=== PATIENT | female | born 1960 | race Caucasian/White ===

== ENCOUNTER → 2020-06-27 09:50 | Outpatient (BNVA) | payer MEDICARE, MEDICAID, SELFPAY | PROVIDERS: PCP Internal Medicine Endocrinology, Diabetes & Metabolism; Visit Provider Urology | DX: Z76.89 Persons encountering health services in other specified circumstances (principal) | CPT/HCPCS: 51798; 81002; 99212 ==

== ENCOUNTER 2020-06-27 11:25 | Outpatient (REF) | payer MEDICARE, MEDICAID, SELFPAY | END 2020-06-27 11:26 | disposition home or self-care (01) | LOC: HO.LAB 11:25 | PROVIDERS: PCP Emergency Medicine; Visit Provider Internal Medicine | DX: Z20.828 Contact with and (suspected) exposure to other viral communicable diseases (principal) | CPT/HCPCS: 51798; 81002; 99212; C9803; U0003 ==

== ENCOUNTER 2020-08-24 09:02 | Outpatient (REF) | payer MEDICARE, MEDICAID, SELFPAY ==
--- NOTE | ~2020-08-24 | US_ITS ---
EXAMINATION: US ABDOMEN COMPLETE CLINICAL INFORMATION: Cirrhosis. COMPARISON: Ultrasound abdomen 01/19/2020 and 03/23/2019. TECHNIQUE: Real-time imaging of the abdominal viscera. FINDINGS: PANCREAS: Normal. ABDOMINAL AORTA: The proximal, mid, and distal segments are normal in caliber. INFERIOR VENA CAVA: Visualized portions are normal. LIVER: Liver echotexture is normal. There is question of slightly nodular or lobulated contour of the liver for example image 55 questionable for mild cirrhotic change. The liver is normal in size. No focal hepatic lesion. There is no intrahepatic biliary duct dilatation seen. GALLBLADDER: The gallbladder is physiologically distended without evidence of stones, sludge, polyps, or wall thickening. COMMON BILE DUCT: Normal in caliber measuring 0.22 cm in diameter. RIGHT KIDNEY: Normal. No hydronephrosis. No renal calculi or focal parenchymal lesions. The kidney measures 10.5 cm in maximum dimension. LEFT KIDNEY: Normal. No hydronephrosis. No renal calculi or focal parenchymal lesions. The kidney measures 11.5 cm in maximum dimension. SPLEEN: The spleen is enlarged. The spleen measures 15.4 cm in maximum dimension. FREE FLUID: None. US/US abdomen complete IMPRESSION: Question mild cirrhotic changes of the liver. No focal liver lesion seen. Splenomegaly.
[2020-08-24 10:44] LABS: Hematocrit 43.3 % (37-47); Hemoglobin 14.8 g/dl (12.0-16.0); INTERNATIONAL NORM RATIO 1.1 (0.9-1.1); Mean Corpuscular HGB Conc 34.2 g/dl (31.0-35.0); Mean Corpuscular Hemoglobin 35.7 pg (27.0-33.0); Mean Corpuscular Volume 104.6 fL (80-98); Mean Platelet Volume 10.2 fL (9.4-12.3); Prothrombin Time 12.9 SEC (10.8-13.0); Red Blood Count 4.14 X10*6/uL (4.20-5.50); Red Cell Distribution Width 12.1 % (11.0-16.0); White Blood Count 3.8 X10*3/uL (4.8-10.8)
[2020-08-24 10:49] LABS: Platelet Count 78 X10*3/uL (160-400)
[2020-08-24 11:19] LABS: Alanine Aminotransferase 23 U/L (0-31); Albumin Level 4.5 g/dL (3.5-5.0); Alkaline Phosphatase 40 U/L (39-117); Anion Gap 11 (12-20); Aspartate Amino Transferase 24 U/L (5-31); Bilirubin Total 0.8 mg/dL (0.0-1.0); Blood Urea Nitrogen 21 mg/dL (9-16); Calcium 8.7 mg/dL (8.4-10.2); Carbon Dioxide 26 mmol/L (22-29); Chloride 108 mmol/L (96-108); Estimated Glomerular Filt Rate 44; Glucose Random 146 mg/dL (60-115); Potassium 3.9 mmol/L (3.3-5.1); Sodium 141 mmol/L (135-145); Total Protein 7.1 g/dL (6.5-8.0)
== END 2020-08-24 09:03 | disposition home or self-care (01) ==
LOC: HO.US 09:02
PROVIDERS: PCP Emergency Medicine; Visit Provider Internal Medicine Gastroenterology
DX: K74.60 Unspecified cirrhosis of liver (principal)
CPT/HCPCS: 36415; 76700; 80053; 85027; 85610

== ENCOUNTER → 2020-09-01 09:42 | Outpatient (BNVA) | payer MEDICARE, MEDICAID, SELFPAY | PROVIDERS: PCP Internal Medicine Endocrinology, Diabetes & Metabolism; Referring Provider Internal Medicine Endocrinology, Diabetes & Metabolism; Visit Provider Internal Medicine Gastroenterology | DX: Z13.89 Encounter for screening for other disorder (principal) | CPT/HCPCS: Q3014 ==

== ENCOUNTER 2020-09-07 10:34 | Outpatient (REF) | payer MEDICARE, MEDICAID, SELFPAY ==
--- NOTE | ~2020-09-07 | MM_ITS ---
EXAMINATION: MM SCREENING DIGITAL BREAST TOMOSYNTHESIS, BILATERAL CLINICAL INFORMATION: Screening. Asymptomatic. The lifetime risk of breast cancer based on the Tyrer-Cuzick Model is 8.3%. COMPARISON: Mammography: September 01, 2019 and studies dating back to February 21, 2012 TECHNIQUE: Digital breast tomosynthesis is performed in both the craniocaudal and mediolateral oblique views along with computer-aided detection (CAD). Synthesized 2D images are generated from the tomosynthesis. FINDINGS: There are scattered areas of fibroglandular density (ACR BI-RADS breast composition Category b). There are no significant masses, abnormal calcifications, or other abnormalities. MM/MM tomosynthesis screening BI IMPRESSION: There are no significant changes from prior study. ASSESSMENT: BI-RADS 1: Negative RECOMMENDATION: Routine annual mammography screening. This patient's information was entered into a reminder system with a target due date for their next mammogram.
== END 2020-09-07 10:35 | disposition home or self-care (01) ==
LOC: HO.MAMMO 10:34
PROVIDERS: PCP General Practice; Visit Provider General Practice
DX: Z12.31 Encounter for screening mammogram for malignant neoplasm of breast (principal)
CPT/HCPCS: 77063; 77067

== ENCOUNTER 2020-12-12 15:02 | Outpatient (REF) | payer MEDICARE, MEDICAID, SELFPAY ==
[2020-12-16 09:27] LABS: HPV mRNA E6/E7 rflx Not Detected (Not Detected)
== END 2020-12-12 15:03 | disposition home or self-care (01) ==
LOC: HO.LAB 15:02
PROVIDERS: PCP General Practice; Visit Provider Obstetrics & Gynecology
DX: N95.0 Postmenopausal bleeding (principal); R31.29 Other microscopic hematuria; K62.5 Hemorrhage of anus and rectum; Z11.51 Encounter for screening for human papillomavirus (HPV)
CPT/HCPCS: 87086; 87624; 88142; 99202

== ENCOUNTER → 2020-12-15 10:13 | Outpatient (BNVA) | payer MEDICARE, MEDICAID, SELFPAY | PROVIDERS: PCP General Practice; Visit Provider Urology | DX: R35.0 Frequency of micturition (principal); R35.1 Nocturia | CPT/HCPCS: 99212 ==

== ENCOUNTER 2020-12-19 11:25 | Outpatient (REF) | payer MEDICARE, MEDICAID, SELFPAY | END 2020-12-19 11:26 | disposition home or self-care (01) | LOC: HO.LAB 11:25 | PROVIDERS: Absent Provider Obstetrics & Gynecology; PCP General Practice; Visit Provider Internal Medicine Gastroenterology | DX: R31.29 Other microscopic hematuria (principal) | CPT/HCPCS: 87086; 87088; 87186; 99212 ==

== ENCOUNTER 2020-12-22 15:42 | Outpatient (REF) | payer MEDICARE, MEDICAID, SELFPAY ==
--- NOTE | ~2020-12-22 | US_ITS ---
EXAMINATION: US PELVIC AND TRANSVAGINAL CLINICAL INFORMATION: Postmenopausal bleeding. COMPARISON: None TECHNIQUE: Transabdominal and transvaginal imaging of pelvis was performed. FINDINGS: The uterus is retroverted measuring 4.8 cm in length, 2.7 cm in AP and 4.0 cm in transverse dimension. The uterus is heterogeneous in echotexture. Endometrial thickness is 0.5 cm. Both ovaries are not visualized. There is a small amount of free fluid in the pelvis. US/US pelvic and transvaginal IMPRESSION: Heterogeneous uterine texture. No focal lesion seen. Ovaries are not seen. Small amount of free fluid.
== END 2020-12-22 15:43 | disposition home or self-care (01) ==
LOC: HO.US 15:42
PROVIDERS: Visit Provider Obstetrics & Gynecology
DX: N95.0 Postmenopausal bleeding (principal)
CPT/HCPCS: 76830; 76856

== ENCOUNTER 2020-12-26 12:26 | Outpatient (REF) | payer MEDICARE, MEDICAID, SELFPAY | END 2020-12-26 12:27 | disposition home or self-care (01) | LOC: HO.HAP 12:26 | PROVIDERS: Visit Provider General Practice | DX: Z46.1 Encounter for fitting and adjustment of hearing aid (principal); H90.3 Sensorineural hearing loss, bilateral | CPT/HCPCS: 92593; V5266 ==

== ENCOUNTER 2021-01-05 15:00 | Outpatient (REF) | payer MEDICARE, MEDICAID, SELFPAY ==
[2021-01-08 03:37] LABS: HPV mRNA E6/E7 rflx Not Detected (Not Detected)
== END 2021-01-05 15:01 | disposition home or self-care (01) ==
LOC: HO.LAB 15:00
PROVIDERS: PCP General Practice; Visit Provider Obstetrics & Gynecology
DX: M95.0 Acquired deformity of nose (principal); R87.615 Unsatisfactory cytologic smear of cervix; N39.0 Urinary tract infection, site not specified
CPT/HCPCS: 58100; 87086; 87088; 87186; 87624; 88142; 88305; 99212

== ENCOUNTER → 2021-01-19 15:39 | Outpatient (BNVA) | payer MEDICARE, MEDICAID, SELFPAY | PROVIDERS: PCP General Practice; Visit Provider Obstetrics & Gynecology | DX: Z13.89 Encounter for screening for other disorder (principal) | CPT/HCPCS: Q3014 ==

== ENCOUNTER 2021-01-26 16:32 | Outpatient (REF) | payer MEDICARE, MEDICAID, SELFPAY ==
[2021-01-26 17:29] LABS: MANUAL DIFF FLAG NO
[2021-01-26 17:34] LABS: Eosinophils Percent Auto 0.5 % (0-4); Hematocrit 39.9 % (37-47); Hemoglobin 13.7 g/dl (12.0-16.0); Imm Gran Abs Auto 0.01 X10*3/uL (0.00-0.03); Imm Gran Pct Auto 0.3 % (0.0-0.4); Lymphocytes Absolute Auto 1.2 X10*3/uL (1.2-4.9); Lymphocytes Percent Auto 30.7 % (20-40); Mean Corpuscular HGB Conc 34.3 g/dl (31.0-35.0); Mean Corpuscular Hemoglobin 36.1 pg (27.0-33.0); Mean Corpuscular Volume 105.3 fL (80-98); Mean Platelet Volume 9.9 fL (9.4-12.3); Monocytes Absolute Auto 0.2 X10*3/uL (0.1-1.2); Monocytes Percent Auto 4.5 % (2-11); Neutrophils Absolute Auto 2.4 X10*3/uL (2.0-8.3); Red Blood Count 3.79 X10*6/uL (4.20-5.50); Red Cell Distribution Width 12.5 % (11.0-16.0); White Blood Count 3.7 X10*3/uL (4.8-10.8)
[2021-01-26 17:41] LABS: Prothrombin Time 11.8 SEC (9.9-13.0)
[2021-01-26 17:49] LABS: Platelet Count 74 X10*3/uL (160-400)
[2021-01-26 17:57] LABS: Alanine Aminotransferase 17 U/L (0-31); Albumin Level 4.5 g/dL (3.5-5.0); Alkaline Phosphatase 40 U/L (39-117); Anion Gap 11 (12-20); Aspartate Amino Transferase 23 U/L (5-31); Bilirubin Total 0.6 mg/dL (0.0-1.0); Blood Urea Nitrogen 22 mg/dL (9-16); Calcium 9.2 mg/dL (8.4-10.2); Carbon Dioxide 27 mmol/L (22-29); Chloride 108 mmol/L (96-108); Estimated Glomerular Filt Rate 49; Glucose Random 116 mg/dL (60-115); Potassium 3.9 mmol/L (3.3-5.1); Sodium 142 mmol/L (135-145); Total Protein 7.2 g/dL (6.5-8.0)
[2021-01-26 18:09] LABS: Glucose Urine UA NEG (NEG); Leukocyte Esterase Urine 2+ (NEG); Nitrite Urine NEG (NEG); Specific Gravity - Urine <= 1.005 (1.005-1.025); UACC Culture Trigger YES; Urine Blood TRACE (NEG); Urine Ketones NEG (NEG); Urine Protein NEG (NEG-TRACE)
[2021-01-26 18:19] LABS: Appearance Urine CLEAR; Color Urine YELLOW
[2021-01-26 18:22] LABS: WBC Urine 30-49 /HPF (0-4)
[2021-01-26 18:23] LABS: Bacteria Urine 1+ /LPF
== END 2021-01-26 16:33 | disposition home or self-care (01) ==
LOC: HO.LAB 16:32
PROVIDERS: Internal Medicine Gastroenterology; PCP Nurse Practitioner Primary Care; Visit Provider Nurse Practitioner Primary Care
DX: K74.60 Unspecified cirrhosis of liver (principal); R30.0 Dysuria
CPT/HCPCS: 36415; 80053; 81001; 81003; 85025; 85610; 87086; 87088; 87147; 87186

== ENCOUNTER 2021-02-07 07:57 | Day surgery (SDC) | payer MEDICARE, MEDICAID, SELFPAY ==
[2021-01-31 16:06] VITALS: BMI 31.0
[2021-02-07 08:27] VITALS: BP 124/74; PULSE 84; RESP 16; TEMP 36.6; O2SAT 96
[2021-02-07] MEDS: Sodium Phosphate,Mono-Dibasic 133 ML ENEMA PR (08:40)
--- NOTE | 2021-02-07 08:52 | PC.NURSE ---
Patient stated she finished her bowel prep completely, output liquid brown. Dr. Coon notified. New order for Fleet Enema. Enema administered, tolerated well. Patient voided in bathroom, output liquid clear/yellow. Dr. Coon made aware.
--- NOTE | 2021-02-07 09:06 | PC.NURSE ---
Patient arrived to pre op accompanied by insulation supervisor, Irlanda. Patient alert and oriented to person, place, time. Patient aware of what procedure she is having. Per Irlanda, patient lives in her own apartment at the [facility], signs consents for herself. Patient does have a Legal Guardian appointed to her through the court, Ramses Pierre, Phone [phone]. Irlanda did not have this document with her and stated that fax machines were down at the correction. Photo of document obtained from Irlanda, however photo was unclear. Situation and photo of document shown/discussed with director Kavya. Per her, if patient is alert and oriented x3 and aware of procedure today, she is able to sign her own consents. This discussed with anesthesia Dr. Meraz who agrees and is comfortable with patient signing her own consents.
--- NOTE | 2021-02-07 09:08 | P.CONAN_ITS ---
HPI - Anesthesia Eval Consult details Narrative: 60 yo female patient for colonoscopy PMF Active Problems Active Problems: All Active Problems (Updated 01/31/21 @ 15:50 by Angela Dumont) GERD (gastroesophageal reflux disease) (Acute) Cirrhosis of liver without ascites (Acute) Colon cancer screening (Acute) Vaginal bleeding (Acute) Microscopic hematuria (Acute) Postmenopausal bleeding (Acute) Blood per rectum (Acute) UTI (urinary tract infection) (Acute) Unsatisfactory cervical Papanicolaou smear (Acute) Nocturia (Acute) Frequency of micturition (Acute) Past Medical History Medical History Constipation COVID-19 vaccine series completed Depression Developmental delay, mild Frequency of micturition History of diverticulosis History of ETOH abuse History of intravenous drug abuse HIV (human immunodeficiency virus infection) Hx of acute pancreatitis Hx of acute renal failure Hx of hepatitis C Hx of herpes genitalis Hyperlipidemia Nocturia PTSD (post-traumatic stress disorder) Seasonal allergies Family History Family History Mother Breast cancer HTN (hypertension) Alzheimer disease Family history of problems with anesthesia: No Surgical History Surgical History History of colonoscopy History of Problems with Anesthesia: No Social History Social History Housing: Assisted Living Facility Housing Other:: [facility] Are you a primary point of care technician to a significant other at home: No Alcohol intake: former Patient Tobacco Use Status: Tobacco use Unknown Substance Use Type: Crack/Cocaine Are you DNR?: No Advance Directives: No Advance Directives Information Provided: No Advance Directives on File: No Meds Allergies Allergy/AdvReac Type Severity Reaction Status Date / Time abacavir [ABACAVIR] Allergy Severe HIVES Verified 02/07/21 08:12 hydrochlorothiazide Allergy Severe HIVES Verified 02/07/21 08:12 [HYDROCHLOROTHIAZIDE] ibuprofen [From MOTRIN] Allergy Severe HIVES Verified 02/07/21 08:12 Penicillins [PENICILLINS] Allergy Severe HIVES Verified 02/07/21 08:12 tenofovir [From VIREAD] Allergy Severe HIVES Verified 02/07/21 08:12 tomato [TOMATO] Allergy Severe HIVES Verified 02/07/21 08:12 zidovudine [From RETROVIR] Allergy Severe HIVES Verified 02/07/21 08:12 lactose [Lactose] Allergy Unknown DIARRHEA Verified 02/07/21 08:12 Active Medications: Current Medications Generic Name Dose Route Start Last Admin Trade Name Awiasq PRN Reason Stop Dose Admin Sodium Biphosphate/Sodium Phosphate 133 ml 02/07/21 08:26 02/07/21 08:40 Sodium Phosphate,Hubbard-Dibasic 133 Ml Enema MT 133 ml ONCE PRN Administration Poor Colonoscopy Prep Results Home Medications Medication Instructions Recorded Confirmed Last Taken Type alendronate 70 mg tablet 70 mg PO QWEEK 06/24/20 01/31/21 Unknown History quetiapine 50 mg tablet 50 mg PO BID 06/24/20 01/31/21 Unknown History simvastatin 20 mg tablet 20 mg PO BEDTIME 06/24/20 01/31/21 Unknown History sertraline 100 mg tablet 150 mg PO BEDTIME tab 09/01/20 01/31/21 Unknown History trazodone 100 mg tablet 200 mg PO BEDTIME tab 09/01/20 01/31/21 Unknown History acetaminophen 500 mg tablet 500 mg PO Q6H PRN 01/31/21 01/31/21 Unknown History bictegravir 50 mg-emtricitabine 1 tab PO DAILY 01/31/21 01/31/21 02/07/21 07:00 History 200 mg-tenofovir alafenam 25 mg tablet (Biktarvy) calcium carbonate 600 mg (1,500 1 tab PO BID 01/31/21 01/31/21 Unknown History mg)-vitamin D3 400 unit tablet (Calcium 600 + D(3)) cholecalciferol (vitamin D3) 25 25 mcg PO DAILY 01/31/21 01/31/21 Unknown History mcg (1,000 unit) capsule (Vitamin D3) cyanocobalamin (vitamin B-12) 1,000 mcg PO DAILY 01/31/21 01/31/21 Unknown History 1,000 mcg tablet (Vitamin B-12) famciclovir 500 mg tablet 1,000 mg PO DAILY 01/31/21 01/31/21 02/07/21 07:00 History folic acid 1 mg tablet 1 mg PO DAILY 01/31/21 01/31/21 Unknown History multivit,tx with iron 27 1 tab PO DAILY 01/31/21 01/31/21 Unknown History hu-jwxzjqb-btfmc acid 0.4 mg-minerals tablet omeprazole 20 mg capsule,delayed 20 mg PO DAILY 01/31/21 01/31/21 02/07/21 07:00 History release polyvinyl alcohol 1.4 % eye drops 1 drp OPHTHALMIC (EYE) BID PRN 01/31/21 01/31/21 Unknown History simethicone 180 mg capsule 180 mg PO BID PRN 01/31/21 01/31/21 Unknown History sodium chloride 0.65 % nasal spray 1 spray INTRANASAL BID 01/31/21 01/31/21 Unknown History aerosol (Saline Nasal) Exam Exam Date and Time: February 07, 2021 0908 Height,Weight and Vital Signs: Height 5 ft 4 in Weight 82.1 kg Last Vital Signs Temp 97.8 F 02/07/21 08:27 Pulse 84 02/07/21 08:27 Resp 16 02/07/21 08:27 BP 124/74 02/07/21 08:27 Pulse Ox 96 02/07/21 08:27 Airway Mallampati Class: II TM Dist: >3cm Neck ROM: Full Loose/Missing/Broken Teeth: Yes (2 broken top) Heart: RRR Lungs: CTAB Assessment and Plan Assessment Anesthesia Assessment: Anesthesia Plan Discussed and Chart Reviewed Final Anesthetic Review Family History of Problems with Anesthesia: No History of Problems with Anesthesia: No NPO: Yes ASA Class: III Final Preanesthetic Review: No Changes in Pt Med Stat, Meds/Allgs Chart Reviewed, Consent Obtained/Reviewed and Anes Risks/Benef Reviewed Patient Risk: Intermediate Procedure Risk: Low Assessment/Block/Sedation in SS: Assess/Block/Sedation-SS Anesthetic Plan Anesthetic Plan: MAC: Disposition: Standard PACU
--- NOTE | 2021-02-07 09:10 | MHC.SHP ---
Pre-Procedural Eval Section A Date of Service: 02/07/21 The patient is an INPATIENT: No The History & Physical has been completed within 30 days and I have reviewed it.: No Section B Chief Complaint: blood per rectum, Screening Details of Present Illness: Colon cancer screening, constipation and diarrhea, rectal Relevant Family History (Specify if Yes): No Present Medications: see Short Stay Collaborative assessment Medical History: Significant History (Constipation COVID-19 vaccine series completed Depression Developmental delay, mild Frequency of micturition History of diverticulosis History of ETOH abuse History of intravenous drug abuse HIV (human immunodeficiency virus infection) Hx of acute pancreatitis Hx of acute renal failure Hx of hepatit) History of Previous Operations: Relevant previous surgery/procedure and date(s) (colonoscopy) Allergies: Allergies Allergy/AdvReac Type Severity Reaction Status Date / Time abacavir [ABACAVIR] Allergy Severe HIVES Verified 02/07/21 08:12 hydrochlorothiazide Allergy Severe HIVES Verified 02/07/21 08:12 [HYDROCHLOROTHIAZIDE] ibuprofen [From MOTRIN] Allergy Severe HIVES Verified 02/07/21 08:12 Penicillins [PENICILLINS] Allergy Severe HIVES Verified 02/07/21 08:12 tenofovir [From VIREAD] Allergy Severe HIVES Verified 02/07/21 08:12 tomato [TOMATO] Allergy Severe HIVES Verified 02/07/21 08:12 zidovudine [From RETROVIR] Allergy Severe HIVES Verified 02/07/21 08:12 lactose [Lactose] Allergy Unknown DIARRHEA Verified 02/07/21 08:12 Review of Systems Sugical H&P ROS: Negative: Constitution, Cardiovascular and Respiratory and Yes, Specify: Gastrointestinal (constipation, rectal bleeding) Exam Surgical H&P Exam: Normal: Heart, Normal: Lungs, Normal: Extremities and Normal: Abdomen Plan Diagnosis/Plan: Unchanged I have reviewed the history and physical and performed a pertinent physical examination on my patient. No changes have occurred unless specified.
--- NOTE | 2021-02-07 09:18 | P.BOP_ITS ---
Brief Operative Note Date of Service: 02/07/21 Pre-op diagnosis: colon cancer screening, rectal bleeding, constipaiton and diarrhea Post-op diagnosis: other (Colon polyp, diverticulosis) Procedure: COLONOSCOPY TILL CECUM WITH BIOPSIES AND SNARE POLYPECTOMY Consent: Indications for the procedure and potential complications of bleeding, perforation, reaction to medications and missed diagnosis were discussed with the patient and informed consent was obtained. Instrument: Olympus PCF H 190 L variable stiffness pediatric colonoscope Monitoring: Vital signs and clinical assessment, intermittent blood pressure monitoring, continuous EKG monitoring, Pulse oximetry and Carbon Dioxide monitoring were done throughout the procedure. Colon withdrawl time was 21 minutes. Procedure: The patient was placed in the left lateral decubitis position and pre-procedure medications were administered. After a digital rectal examination of the ano-rectum, the video colonoscope was inserted into the rectum and advanced through the colon to the cecum. The colonoscope was slowly withdrawn in a retrograde panoramic fashion and the colon mucosa was carefully examined including a retroflexed view of the rectum. Findings and interventions are described below. Procedure Difficulty: Without difficulty Findings: Terminal Ileum: Distal 7-8 cms was examined and appeared normal Cecum: Normal Ascending Colon: Normal Transverse Colon: Normal Descending Colon: Moderate diverticulosis Sigmoid Colon: Moderate diverticulosis Rectum: A 10 mm sessile polyp removed with a cold snare. Ano-rectum: No hemorrhoids noted during antegrade withdrawl Colon preparation: Excellent after some irrigation Impression and Post Procedure Diagnosis: Colonoscopy Findings: One medium sized polyp removed. Random biopsies were obtained from right and left colon to check for microscopic colitis Moderate diverticulosis seen in the left colon Plan: Await pathology results Patient has an appointment on 02/23/21 in the GI Clinic with Helena Coon M.D.. Repeat Colonoscopy interval based on path results - in 3 years if polyp is adenomatous and 10 years if polyp is hyperplastic. Above findings were reviewed with the patient and colon polyps and diverticulosis handouts were given in the discharge area Surgeon: Helena Coon MD Anesthesia: MAC (Cora Cormier CRNA) Was an Community Health Advocate used for this Procedure?: No Community Health Advocate: Kaur Al Estimated blood loss (mL): 0 Pathology: other (A. RANDOM RIGHT COLON BX'S R/O MICROSCOPIC COLITIS B.RANDOM LEFT COLON BX'S, R/O MICROSCOPIC COLITIS C. RECTAL POLYP) Condition: stable Disposition: PACU
[2021-02-07] MEDS: Lactated Ringers 1,000 ML 100 ML IVCONT (09:20)
--- NOTE | 2021-02-07 09:21 | PC.NURSE ---
Patient arrived to [facility] with a black bag/backpack. Patient requested this bag stay with with Alf director Irlanda out in waiting room. Bag with Irlanda.
[2021-02-07 10:27] VITALS: BP 91/45; PULSE 78; RESP 16; TEMP 36.1; O2SAT 97
[2021-02-07 10:42] VITALS: BP 111/58; PULSE 76; RESP 18; TEMP 36; O2SAT 97
--- NOTE | 2021-02-07 11:12 | PC.NURSE ---
Instructions given to patient and Health Aide from Assisted.
--- NOTE | 2021-02-07 15:49 | W.PM.OPN ---
Operative Note Operative Note Date of Service: 02/07/21 Narrative: Pre-op diagnosis:?colon cancer screening, rectal bleeding, constipaiton and diarrhea Post-op diagnosis:?other (Colon polyp, diverticulosis) Procedure:? COLONOSCOPY TILL CECUM WITH BIOPSIES AND SNARE POLYPECTOMY Consent: Indications for the procedure and potential complications of bleeding, perforation, reaction to medications and missed diagnosis were discussed with the patient and informed consent was obtained. Instrument: Olympus PCF H 190 L variable stiffness pediatric colonoscope Monitoring: Vital signs and clinical assessment, intermittent blood pressure monitoring, continuous EKG monitoring, Pulse oximetry and Carbon Dioxide monitoring were done throughout the procedure. Colon withdrawl time was 21 minutes. Procedure: The patient was placed in the left lateral decubitis position and pre-procedure medications were administered. After a digital rectal examination of the ano-rectum, the video colonoscope was inserted into the rectum and advanced through the colon to the cecum. The colonoscope was slowly withdrawn in a retrograde panoramic fashion and the colon mucosa was carefully examined including a retroflexed view of the rectum. Findings and interventions are described below. Procedure Difficulty: Without difficulty Findings: Terminal Ileum: Distal 7-8 cms was examined and appeared normal Cecum:? Normal Ascending Colon:? Normal Transverse Colon:? Normal Descending Colon:? Moderate diverticulosis Sigmoid Colon:? Moderate diverticulosis Rectum:? A 10 mm sessile polyp removed with a cold snare. Ano-rectum:? No hemorrhoids noted during antegrade withdrawl Colon preparation: Excellent after some irrigation Impression and Post Procedure Diagnosis: Colonoscopy Findings: One medium sized polyp removed. Random biopsies were obtained from right and left colon to check for microscopic colitis Moderate diverticulosis seen in the left colon No source found for rectal bleeding - pt is being evaluated by ObGyn for vaginal bleeding. Plan: Await pathology results Patient has an appointment on 02/23/21 in the GI Clinic with? Helena Coon M.D.. Repeat Colonoscopy interval based on path results - in 3 years if polyp is adenomatous and 10 years if polyp is hyperplastic. Above findings were reviewed with the patient and colon polyps and diverticulosis handouts were given in the discharge area Surgeon:?Helena Coon MD Anesthesia:?MAC (Cora Cormier CRNA) Was an Apparatus Engineering Technologist used for this Procedure?:?No Apparatus Engineering Technologist:?Kaur Al Estimated blood loss (mL):?0 Pathology:?other (A. RANDOM RIGHT COLON BX'S R/O MICROSCOPIC COLITIS? B.RANDOM LEFT COLON BX'S, R/O MICROSCOPIC COLITIS? C. RECTAL POLYP) Condition:?stable Disposition:?PACU
== END 2021-02-07 11:12 ==
LOC: HO.SSS 07:57
PROVIDERS: PCP General Practice; Visit Provider Internal Medicine Gastroenterology
PROC: 0DJD8ZZ Inspection of Lower Intestinal Tract, Via Natural or Artificial Opening Endoscopic (ICD-10-PCS; CPT 45378; principal; 2021-02-07 09:10)
DX: K62.5 Hemorrhage of anus and rectum (principal); K62.1 Rectal polyp; K57.30 Diverticulosis of large intestine without perforation or abscess without bleeding; K59.00 Constipation, unspecified; B20 Human immunodeficiency virus [HIV] disease; F32.9 Major depressive disorder, single episode, unspecified; F43.10 Post-traumatic stress disorder, unspecified; Z86.19 Personal history of other infectious and parasitic diseases; Z79.899 Other long term (current) drug therapy; Z88.0 Allergy status to penicillin; Z88.8 Allergy status to other drugs, medicaments and biological substances
CPT/HCPCS: 45385; 45380; 88305; J2370

== ENCOUNTER 2021-02-13 12:34 | Outpatient (REF) | payer MEDICARE, MEDICAID, SELFPAY ==
--- NOTE | 2021-02-20 11:28 | MHC.AU.AHA ---
Adult Audiological Evaluation Date of Visit: 02/13/21 Reason for Appointment: History of hearing loss. Patient arrives to determine if there has been a change in hearing. Previous Hearing Test Results: At this clinic on 10/27/2018-Borderline sloping to moderate sensorineural hearing loss Medical History: Medical History: HIV, Cirrhosis of the liver, Developmental Delay, Chronic Kidney Disease Stage III, Prior history of Hepatitis C Hearing Instrument History- Right Ear: Mechanical Spreader Operator: Phonak Model: Phonak Rosette Micro III BTE Serial Number: [id number] Battery Size: 312 Repair Warranty: 2013 Dispensed By: [facility] Date of Fittin09/20/2011 Hearing Instrument History- Left Ear: Mechanical Spreader Operator: Phonak Model: Gilpin Micro III BTE Serial Number: [id number] Battery Size: 312 Warranty: 2013 Dispensed By: [facility] Date of Fittin09/20/2011 Otoscopy: Right Ear: Unremarkable Left Ear: Unremarkable Hearing Evaluation: Transducer(s) Used: Insert Earphones Method: Conventional Audiometry Stimuli Used: Pure Tones Right Ear: Description of Hearing: Mild to moderate sensorineural hearing loss Left Ear: Description of Hearing: Mild to moderate/moderately-severe sensorineural hearing loss Speech Recognition Threshold (SRT): Method Used: Recorded Lists Stimuli Used: Spondee Words Right Ear: 35 dBHL Left Ear: 30 dBHL Word Discrimination: Method: Recorded Lists Word Lists Used: W-22 Right Ear: 92% at 75 dBHL Left Ear: 88% at 75 dBHL Most Comfortable Level (MCL): Right Ear: 75 dBHL Left Ear: 75 dBHL Comparison: Compared to most recent evaluation: Slight decreases noted bilaterally Recommendations: Audiological re-evaluation in one year. See Hearing Aid Follow-Up note for more information. Diagnosis: Primary Diagnosis: H90.3 Bilateral Sensorineural Hearing Loss Signature: Provider:Rosanne Andersen, CCC-A
--- NOTE | 2021-02-20 11:29 | MHC.AU.HFU ---
Hearing Instrument Follow-Up- Binaural Date of Visit: 02/13/21 Right Ear: Television Installer: Phonak Model: Phonak Madison Micro III BTE Serial Number: [id number] Repair Warranty: 2013 Battery Size: 312 Color: Purple Tubing: Tube Lock Type of Mold: Microsonic Purple and Clear Swirl Skeleton Dispensed By: [facility] Date of Fittin09/20/2011 Left Ear: Television Installer: Phonak Model: Madison Micro III BTE Serial Number: [id number] Repair Warranty: 2013 Battery Size: 312 Color: Purple Tubing: Tube Lock Type of Mold: Microsonic Purple and Clear Swirl Skeleton Dispensed By: [facility] Date of Fittin09/20/2011 Follow-Up Summary: Patient was seen for audiological re-evaluation (see separate report for details). Patient arrived wearing her older Phonak Rosette instruments. She received a pair of Phonak Leandro B50-M instruments on 12/04/2018. Patient reports that she does not like wearing the Leandro instruments because they flop off her ears while she is working. 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 She is also experiencing this issue with her Rosette instruments, but not to the same extent. The tubing appeared to be slightly too long. Patient feels that wearing masks also makes this worse, as it pulls her ears forward. Hearing aid maintenance performed on the Rosette instruments (did not have Leandro with her today). Molds were cleaned and re-tubed. Tubing was measured on patient's ears and cut to size. The fit appears better, and the instruments do no fall off the ear as easily. Gave patient a mask clip so her mask can be secured behind her head, rather than on her ears. Tried to re-program the Madison instruments with today's test results; however, they would not connect to the computer. The Rosette cannot be repaired, partly due to the age of the instruments (over 5 years old- dispensed in 2011) and partly because [employer] will not pay to repair old instruments when new ones have been dispensed. Strongly recommended that they make an appointment to bring in the Leandro instruments. We can address the fit issues and update their programming for today's thresholds. Recommendations: Follow-up was scheduled. Diagnosis Code(s): Primary Diagnosis: H90.3 Bilateral Sensorineural Hearing Loss Signature: Provider: Rosanne Andersen, CCC-A
== END 2021-02-13 12:35 | disposition home or self-care (01) ==
LOC: HO.SH 12:34
PROVIDERS: Visit Provider Nurse Practitioner Primary Care
DX: Z46.1 Encounter for fitting and adjustment of hearing aid (principal); H90.3 Sensorineural hearing loss, bilateral
CPT/HCPCS: 92557; 92593

== ENCOUNTER 2021-02-28 17:20 | Emergency (ER) | payer MEDICARE, MEDICAID, SELFPAY ==
[2021-02-28 17:45] VITALS: BP 132/66; PULSE 82; RESP 18; TEMP 36.7; O2SAT 96; BMI 30.7
== END 2021-02-28 19:46 | disposition left against medical advice (07) ==
LOC: HO.ED 19:39
PROVIDERS: Emergency Provider Emergency Medicine; PCP Nurse Practitioner Primary Care
DX: R21 Rash and other nonspecific skin eruption (principal)
CPT/HCPCS: 99281; 99282

== ENCOUNTER → 2021-03-23 10:26 | Outpatient (BNVA) | payer MEDICARE, MEDICAID, SELFPAY | PROVIDERS: PCP Internal Medicine Endocrinology, Diabetes & Metabolism; Visit Provider Internal Medicine Gastroenterology | DX: Z12.11 Encounter for screening for malignant neoplasm of colon (principal); K21.9 Gastro-esophageal reflux disease without esophagitis; K74.60 Unspecified cirrhosis of liver | CPT/HCPCS: Q3014 ==

== ENCOUNTER → 2021-05-04 10:01 | Outpatient (BNVA) | payer MEDICARE, MEDICAID, SELFPAY | PROVIDERS: PCP General Practice; Visit Provider Nurse Practitioner Gerontology | DX: Z13.89 Encounter for screening for other disorder (principal) | CPT/HCPCS: 99212 ==

== ENCOUNTER 2021-05-04 10:58 | Outpatient (REF) | payer MEDICARE, MEDICAID, SELFPAY ==
[2021-05-04 14:59] LABS: Free T4 (Free Thyroxine) 1.03 ng/dL (0.71-1.85); Thyroid Stimulating Hormone 3.03 uIU/mL (0.32-4.0)
== END 2021-05-04 10:59 | disposition home or self-care (01) ==
LOC: HO.10HDL 10:58
PROVIDERS: Visit Provider Nurse Practitioner Gerontology
DX: E03.9 Hypothyroidism, unspecified (principal)
CPT/HCPCS: 36415; 84439; 84443; 99212

== ENCOUNTER 2021-06-28 08:42 | Outpatient (REF) | payer MEDICARE, MEDICAID, SELFPAY ==
--- NOTE | ~2021-06-28 | US_ITS ---
EXAMINATION: US ABDOMEN COMPLETE CLINICAL INFORMATION: Cirrhosis. COMPARISON: Previous abdominal ultrasound August 2020 TECHNIQUE: Real-time imaging of the abdominal viscera. FINDINGS: PANCREAS: Normal. ABDOMINAL AORTA: The proximal, mid, and distal segments are normal in caliber. INFERIOR VENA CAVA: Visualized portions are normal. LIVER: Liver echotexture is slightly increased. The liver is normal in size and contour.. No focal hepatic lesion. There is no intrahepatic biliary duct dilatation seen. GALLBLADDER: Normal. The gallbladder is physiologically distended without evidence of stones, sludge, polyps, wall thickening or pericholecystic fluid. COMMON BILE DUCT: Normal in caliber measuring 0.3 cm in diameter. RIGHT KIDNEY: Normal. No hydronephrosis. No renal calculi or focal parenchymal lesions. The kidney measures 9.5 cm in maximum dimension. LEFT KIDNEY: Normal. No hydronephrosis. No renal calculi or focal parenchymal lesions. The kidney measures 12.3 cm in maximum dimension. SPLEEN: The spleen is enlarged. The spleen measures 15.6 cm in maximum dimension. FREE FLUID: None. The extrahepatic, main, right left portal veins are all patent with appropriate hepatopedal flow. The middle, left and right hepatic veins are patent. The IVC is patent. Vessels demonstrate normal waveforms. The splenic vein is patent with appropriate hepatopedal flow. The main hepatic artery demonstrates normal peak systolic velocity of 44 cm/s. US/US duplex arterial venous comp IMPRESSION: Slightly echogenic liver. No focal liver lesion is seen. Enlarged spleen. No ascites. Normal liver Doppler exam.
--- NOTE | ~2021-06-28 | US_ITS ---
EXAMINATION: US ABDOMEN COMPLETE CLINICAL INFORMATION: Cirrhosis. COMPARISON: Previous abdominal ultrasound August 2020 TECHNIQUE: Real-time imaging of the abdominal viscera. FINDINGS: PANCREAS: Normal. ABDOMINAL AORTA: The proximal, mid, and distal segments are normal in caliber. INFERIOR VENA CAVA: Visualized portions are normal. LIVER: Liver echotexture is slightly increased. The liver is normal in size and contour.. No focal hepatic lesion. There is no intrahepatic biliary duct dilatation seen. GALLBLADDER: Normal. The gallbladder is physiologically distended without evidence of stones, sludge, polyps, wall thickening or pericholecystic fluid. COMMON BILE DUCT: Normal in caliber measuring 0.3 cm in diameter. RIGHT KIDNEY: Normal. No hydronephrosis. No renal calculi or focal parenchymal lesions. The kidney measures 9.5 cm in maximum dimension. LEFT KIDNEY: Normal. No hydronephrosis. No renal calculi or focal parenchymal lesions. The kidney measures 12.3 cm in maximum dimension. SPLEEN: The spleen is enlarged. The spleen measures 15.6 cm in maximum dimension. FREE FLUID: None. The extrahepatic, main, right left portal veins are all patent with appropriate hepatopedal flow. The middle, left and right hepatic veins are patent. The IVC is patent. Vessels demonstrate normal waveforms. The splenic vein is patent with appropriate hepatopedal flow. The main hepatic artery demonstrates normal peak systolic velocity of 44 cm/s. US/US abdomen complete IMPRESSION: Slightly echogenic liver. No focal liver lesion is seen. Enlarged spleen. No ascites. Normal liver Doppler exam.
== END 2021-06-28 08:43 | disposition home or self-care (01) ==
LOC: HO.HMGCX 08:42
PROVIDERS: PCP Emergency Medicine; Visit Provider Family Medicine
DX: K74.60 Unspecified cirrhosis of liver (principal); R16.1 Splenomegaly, not elsewhere classified
CPT/HCPCS: 76700; 93975

== ENCOUNTER → 2021-07-27 10:49 | Outpatient (BNVA) | payer MEDICARE, MEDICAID, SELFPAY | PROVIDERS: PCP General Practice; Referring Provider Emergency Medicine; Visit Provider Internal Medicine Gastroenterology | DX: K21.9 Gastro-esophageal reflux disease without esophagitis (principal); K74.60 Unspecified cirrhosis of liver | CPT/HCPCS: 99212 ==

== ENCOUNTER 2021-08-16 15:40 | Outpatient (REF) | payer MEDICARE, MEDICAID, SELFPAY | END 2021-08-16 15:41 | disposition home or self-care (01) | LOC: HO.HAP 15:40 | PROVIDERS: Visit Provider Nurse Practitioner Primary Care | DX: Z46.1 Encounter for fitting and adjustment of hearing aid (principal); H90.3 Sensorineural hearing loss, bilateral | CPT/HCPCS: 92593; V5266; V5275 ==

== ENCOUNTER 2021-08-18 16:33 | Outpatient (REF) | payer MEDICARE, MEDICAID, SELFPAY ==
[2021-08-18 16:51] LABS: MANUAL DIFF FLAG NO
[2021-08-18 17:10] LABS: Basophils Percent Auto 0.2 % (0-2); Eosinophils Percent Auto 0.7 % (0-4); Hemoglobin 13.8 g/dl (12.0-16.0); Imm Gran Abs Auto 0.02 X10*3/uL (0.00-0.03); Imm Gran Pct Auto 0.5 % (0.0-0.4); Lymphocytes Absolute Auto 1.4 X10*3/uL (1.2-4.9); Lymphocytes Percent Auto 32.3 % (20-40); Mean Corpuscular HGB Conc 34.5 g/dl (31.0-35.0); Mean Corpuscular Hemoglobin 35.3 pg (27.0-33.0); Mean Corpuscular Volume 102.3 fL (80.0-98.0); Mean Platelet Volume 9.8 fL (9.4-12.3); Monocytes Absolute Auto 0.2 X10*3/uL (0.1-1.2); Monocytes Percent Auto 3.9 % (2-11); Neutrophils Absolute Auto 2.7 x10*3/uL (2.0-8.3); Neutrophils Percent Auto 62.4 % (45-73); Red Blood Count 3.91 X10*6/uL (4.20-5.50); Red Cell Distribution Width 12.5 % (11.0-16.0); White Blood Count 4.3 X10*3/uL (4.8-10.8)
[2021-08-18 17:17] LABS: Platelet Count 90 X10*3/uL (160-400)
[2021-08-18 17:39] LABS: Alanine Aminotransferase 15 U/L (0-31); Albumin Level 4.6 g/dL (3.5-5.0); Alkaline Phosphatase 41 U/L (39-117); Anion Gap 10 (12-20); Aspartate Amino Transferase 20 U/L (5-31); Bilirubin Total 0.4 mg/dL (0.0-1.0); Blood Urea Nitrogen 25 mg/dL (9-16); Calcium 9.5 mg/dL (8.4-10.2); Carbon Dioxide 25 mmol/L (22-29); Chloride 109 mmol/L (96-108); Estimated Glomerular Filt Rate 52; Glucose Random 146 mg/dL (60-115); Potassium 3.9 mmol/L (3.3-5.1); Sodium 140 mmol/L (135-145); Total Protein 7.3 g/dL (6.5-8.0)
[2021-08-18 17:42] LABS: Prothrombin Time 11.6 SEC (9.9-13.0)
[2021-08-18 17:54] LABS: Free T4 (Free Thyroxine) 0.92 ng/dL (0.71-1.85)
[2021-08-18 17:59] LABS: Vitamin D 25-OH Total 43.1 ng/mL (>30)
[2021-08-18 18:03] LABS: Vitamin B12 1785 pg/mL (200-900)
[2021-08-22 12:07] LABS: Alpha Fetoprotein 2.4 ng/mL
== END 2021-08-18 16:34 | disposition home or self-care (01) ==
LOC: HO.LAB 16:33
PROVIDERS: Nurse Practitioner Gerontology; Visit Provider Internal Medicine Gastroenterology
DX: K74.60 Unspecified cirrhosis of liver (principal); E03.9 Hypothyroidism, unspecified
CPT/HCPCS: 36415; 80053; 82105; 82306; 82607; 84439; 84443; 85025; 85610

== ENCOUNTER → 2021-09-13 10:26 | Outpatient (BNVA) | payer MEDICARE, MEDICAID, SELFPAY | PROVIDERS: PCP Nurse Practitioner Primary Care; Visit Provider Obstetrics & Gynecology | DX: Z13.89 Encounter for screening for other disorder (principal) ==

== ENCOUNTER 2021-09-13 15:03 | Outpatient (REF) | payer MEDICARE, MEDICAID, SELFPAY ==
--- NOTE | 2021-09-18 14:00 | MHC.AU.HFU ---
Hearing Instrument Follow-Up- Binaural Date of Visit: 09/13/21 Right Ear: Supervisor Hard Candy: Phonak Model: Leandro B50-M Serial Number: [id number] Repair Warranty: 01/27/2022 Loss and Damage Warranty: 01/27/2022 Battery Size: 312 Color: [place] Pirate Type of Mold: Microsonic Black/White Peak Canal Dispensed By: [facility] Date of Fittin12/04/2018 Left Ear: Supervisor Hard Candy: Phonak Model: Leandro B50-M Serial Number: [id number] Repair Warranty: 01/27/2022 Loss and Damage Warranty: 01/27/2022 Battery Size: 312 Color: Isaías Pirate Type of Mold: Microsonic Black/White Peak Canal Dispensed By: [facility] Date of Fittin12/04/2018 Follow-Up Summary: 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 The aide accompanying the patient today was told that the newer hearing aids were lost. Patient claims they are in her apartment, but is unsure where, and thinks the battery doors on them are broken. Patient arrived wearing her older purple left hearing aid, also reporting that the older right hearing aid was somewhere in her apartment as well. For now, the tubing on the new molds was trimmed to size based on her older purple hearing aid, and the left side was attached. Patient was given the right mold to attach to the right hearing aid when she gets home. Recommendations: Patient and her aide were encouraged to thoroughly search her residence for the hearing aids. A loss and damage form was signed in case they cannot be found, and will be kept in the patient's chart for now. If the hearing aids are found, and they are missing the battery doors, they will need to be brought to our clinic for repair. If they cannot be found, the residence should call our clinic [facility] so we can submit the loss and damage form. Edit: As of 09/18/21, we have not heard any updates about the hearing aids. Left a voicemail asking them to call us back. Diagnosis Code(s): Primary Diagnosis: H90.3 Bilateral Sensorineural Hearing Loss Signature: Provider: Rosanne Andersen, CCC-A
== END 2021-09-13 15:04 | disposition home or self-care (01) ==
LOC: HO.HAP 15:03
PROVIDERS: Visit Provider Nurse Practitioner Primary Care
DX: Z46.1 Encounter for fitting and adjustment of hearing aid (principal); H90.3 Sensorineural hearing loss, bilateral
CPT/HCPCS: V5264

== ENCOUNTER 2021-11-09 11:19 | Outpatient (REF) | payer MEDICARE, MEDICAID, SELFPAY ==
--- NOTE | ~2021-11-09 | MM_ITS ---
EXAMINATION: MM SCREENING DIGITAL BREAST TOMOSYNTHESIS, BILATERAL CLINICAL INFORMATION: Screening. Asymptomatic. The lifetime risk of breast cancer based on the Tyrer-Cuzick Model is 5%. COMPARISON: Mammography: September 07, 2020 and studies dating back to February 08, 2012 TECHNIQUE: Digital breast tomosynthesis is performed in both the craniocaudal and mediolateral oblique views along with computer-aided detection (CAD). Synthesized 2D images are generated from the tomosynthesis. Additional bilateral exaggerated craniocaudal views performed. FINDINGS: There are scattered areas of fibroglandular density (ACR BI-RADS breast composition Category b). There are no significant masses, abnormal calcifications, or other abnormalities. MM/MM tomosynthesis screening BI IMPRESSION: There are no significant changes from prior study. ASSESSMENT: BI-RADS 1: Negative RECOMMENDATION: Routine annual mammography screening. This patient's information was entered into a reminder system with a target due date for their next mammogram.
== END 2021-11-09 11:20 | disposition home or self-care (01) ==
LOC: HO.MAMMO 11:19
PROVIDERS: Visit Provider Obstetrics & Gynecology
DX: Z12.31 Encounter for screening mammogram for malignant neoplasm of breast (principal)
CPT/HCPCS: 77063; 77067

== ENCOUNTER → 2021-12-19 16:01 | Outpatient (BNVA) | payer MEDICARE, MEDICAID, SELFPAY | PROVIDERS: PCP Nurse Practitioner Primary Care; Visit Provider Urology | DX: N32.81 Overactive bladder (principal); Z79.899 Other long term (current) drug therapy | CPT/HCPCS: 99212 ==

== ENCOUNTER → 2022-01-25 10:03 | Outpatient (BNVA) | payer MEDICARE, MEDICAID, SELFPAY | PROVIDERS: PCP Nurse Practitioner Primary Care; Referring Provider General Practice; Visit Provider Internal Medicine Gastroenterology | DX: K21.9 Gastro-esophageal reflux disease without esophagitis (principal); K74.60 Unspecified cirrhosis of liver; D69.6 Thrombocytopenia, unspecified | CPT/HCPCS: 99212 ==

== ENCOUNTER 2022-01-29 14:34 | Outpatient (REF) | payer MEDICARE, MEDICAID, SELFPAY ==
[2022-01-29 14:46] LABS: MANUAL DIFF FLAG NO
[2022-01-29 15:00] LABS: Basophils Percent Auto 0.2 % (0-2); Eosinophils Percent Auto 0.4 % (0-4); Hematocrit 39.8 % (37.0-47.0); Hemoglobin 13.8 g/dl (12.0-16.0); Imm Gran Abs Auto 0.01 X10*3/uL (0.00-0.03); Imm Gran Pct Auto 0.2 % (0.0-0.4); Lymphocytes Absolute Auto 1.5 X10*3/uL (1.2-4.9); Lymphocytes Percent Auto 31.7 % (20-40); Mean Corpuscular HGB Conc 34.7 g/dl (31.0-35.0); Mean Corpuscular Hemoglobin 35.1 pg (27.0-33.0); Mean Corpuscular Volume 101.3 fL (80.0-98.0); Mean Platelet Volume 9.4 fL (9.4-12.3); Monocytes Absolute Auto 0.2 X10*3/uL (0.1-1.2); Monocytes Percent Auto 4.8 % (2-11); Neutrophils Absolute Auto 2.9 x10*3/uL (2.0-8.3); Neutrophils Percent Auto 62.7 % (45-73); Red Blood Count 3.93 X10*6/uL (4.20-5.50); Red Cell Distribution Width 12.1 % (11.0-16.0); White Blood Count 4.6 X10*3/uL (4.8-10.8)
[2022-01-29 15:05] LABS: Platelet Count 83 X10*3/uL (160-400)
[2022-01-29 15:06] LABS: Prothrombin Time 11.8 SEC (10.0-13.1)
[2022-01-29 15:21] LABS: Alanine Aminotransferase 21 U/L (0-31); Albumin Level 4.7 g/dL (3.5-5.0); Alkaline Phosphatase 39 U/L (39-117); Aspartate Amino Transferase 20 U/L (5-31); Bilirubin Direct 0.3 mg/dL (0.0-0.5); Bilirubin Total 0.6 mg/dL (0.0-1.0); Total Protein 7.4 g/dL (6.5-8.0)
== END 2022-01-29 14:35 | disposition home or self-care (01) ==
LOC: HO.LAB 14:34
PROVIDERS: PCP Nurse Practitioner Primary Care; Visit Provider Internal Medicine Gastroenterology
DX: K74.60 Unspecified cirrhosis of liver (principal)
CPT/HCPCS: 36415; 80076; 85025; 85610

== ENCOUNTER 2022-06-08 16:45 | Emergency (ER) | payer MEDICARE, MEDICAID, SELFPAY ==
[2022-06-08 17:03] VITALS: BP 126/64; PULSE 85; RESP 18; TEMP 36.7; O2SAT 99; BMI 29.5
--- NOTE | 2022-06-08 17:03 | ED_ITS ---
HPI - General Adult General Chief complaint: Nausea/Vomiting/Diarrhea Stated complaint: blood in vomit, chest pain, Time Seen by Provider: 06/08/22 20:02 Source: patient and other (correction staff member) Mode of arrival: ambulatory Limitations: no limitations History of Present Illness HPI narrative: Patient is a 61 year old assigned female at with a history of GERD presenting to the emergency department today with nausea and vomiting. Patient states that for the last 3 days she has had nausea and vomiting. Patient denies any dizziness, lightheadedness, abdominal pain, fever, chills, blurry vision, double vision, loss of vision, chest pain, difficulty breathing, shortness of breath, back pain, night sweats, pain with urination, increased urinary frequency, increased urinary urgency, blood in her urine or stool, syncope or a near syncopal episode, recent trauma or falls, bowel incontinence, bladder incontinence, bowel retention, bladder retention, or any other complaints at this time. Onset (ago): day(s) (3) Severity: mild Severity scale (1-10): 3 Relieving factors: none Exacerbating factors: none Associated symptoms: nausea/vomiting Treatments prior to arrival: none Related Data Home Medications Medication Instructions Recorded Confirmed alendronate 70 mg tablet 70 mg PO QWEEK 06/24/20 01/25/22 quetiapine 50 mg tablet 50 mg PO BID 06/24/20 01/25/22 simvastatin 20 mg tablet 20 mg PO BEDTIME 06/24/20 01/25/22 sertraline 100 mg tablet 150 mg PO BEDTIME 09/01/20 01/25/22 trazodone 100 mg tablet 200 mg PO BEDTIME 09/01/20 01/25/22 acetaminophen 500 mg tablet 500 mg PO Q6H PRN Pain 01/31/21 01/25/22 bictegravir 50 mg-emtricitabine 1 tab PO DAILY 01/31/21 01/25/22 200 mg-tenofovir alafenam 25 mg tablet (Biktarvy) calcium carbonate 600 mg-vitamin 1 tab PO BID 01/31/21 01/25/22 D3 10 mcg (400 unit) tablet (Calcium 600 + D(3)) cholecalciferol (vitamin D3) 25 25 mcg PO DAILY 01/31/21 01/25/22 mcg (1,000 unit) capsule (Vitamin D3) cyanocobalamin (vitamin B-12) 1,000 mcg PO DAILY 01/31/21 01/25/22 1,000 mcg tablet (Vitamin B-12) folic acid 1 mg tablet 1 mg PO DAILY 01/31/21 01/25/22 multivit,tx with iron 27 1 tab PO DAILY 01/31/21 01/25/22 zh-fhgeddd-uoyfd acid 0.4 mg-minerals tablet polyvinyl alcohol 1.4 % eye drops 1 drp ophthalmic (eye) BID PRN Dry 01/31/21 01/25/22 Eyes simethicone 180 mg capsule 180 mg PO BID PRN Gastrointestinal 01/31/21 01/25/22 Spasms Or Cramping sodium chloride 0.65 % nasal spray 1 spray intranasal BID 01/31/21 01/25/22 aerosol (Saline Nasal) albuterol sulfate 90 mcg/actuation 0 mcg inhalation 03/23/21 01/25/22 aerosol inhaler Previous Rx's Medication Instructions Recorded levothyroxine 75 mcg tablet 75 mcg PO QAM #28 tabs 08/31/21 oxybutynin chloride 5 mg 5 mg PO DAILY 90 days #90 tabs 12/19/21 tablet,extended release 24 hr omeprazole 20 mg tablet,delayed 20 mg PO QAM #28 tabs 05/25/22 release sennosides 8.6 mg-docusate sodium 1 tab-cap PO .COMPLEX #12 tabs 05/25/22 50 mg tablet (Stimulant Laxative Plus) ondansetron 4 mg disintegrating 4 mg PO Q8H 3 days #9 tabs 06/08/22 tablet Allergies Allergy/AdvReac Type Severity Reaction Status Date / Time abacavir [ABACAVIR] Allergy Severe HIVES Verified 01/25/22 10:09 hydrochlorothiazide Allergy Severe HIVES Verified 01/25/22 10:09 [HYDROCHLOROTHIAZIDE] ibuprofen [From MOTRIN] Allergy Severe HIVES Verified 01/25/22 10:09 Penicillins [PENICILLINS] Allergy Severe HIVES Verified 01/25/22 10:09 tenofovir [From VIREAD] Allergy Severe HIVES Verified 01/25/22 10:09 tomato [TOMATO] Allergy Severe HIVES Verified 01/25/22 10:09 zidovudine [From RETROVIR] Allergy Severe HIVES Verified 01/25/22 10:09 lactose [Lactose] Allergy Unknown DIARRHEA Verified 01/25/22 10:09 Review of Systems Constitutional: Constitutional: Reports no additional constitutional c omplaints, Denies chills, Denies fever(s) and Denies night sweats Eyes: Eyes: Reports no additional eye complaints, Denies blurry vision, Denies change in vision, Denies diplopia, Denies eye discharge, Denies loss of vision and Denies eye pain ENT: Denies dizziness Cardiovascular: Cardiovascular: Reports no additional cardiovascular complaints, Denies chest pain, Denies lightheadedness, Denies Loss of Consciousness and Denies dyspnea Respiratory: Respiratory: Reports no additional respiratory complaints and Denies dyspnea Gastrointestinal: Gastrointestinal: Reports no additional gastrointestinal complaints, Denies abdominal pain, Denies melena, Denies hematochezia, Denies change in bowel habits, Denies change in stool character, Reports nausea and Reports vomiting Genitourinary: Genitourinary: Denies hematuria, Denies urinary frequency, Denies dysuria, Denies urinary incontinence, Denies urinary hesitancy and Denies urinary urgency Musculoskeletal: Musculoskeletal: Reports no additional musculoskeletal complaints, Denies numbness and Denies tingling Neurologic: Denies dizziness, Denies loss of vision, Denies numbness and Denies tingling Psychiatric: Psychiatric: Reports no additional psychiatric complaints Endocrine: Endocrine: Reports no additional endocrine complaints Hematologic/Lymphatic: Hematologic/Lymphatic: Reports no additional hematologic/lymphatic complaints Allergic/Immunologic: Allergic/Immunologic: Reports no additional allergic/immunologic complaints [facility] Past Medical History Attestation statement: The following information was validated with the patient. Source: old records reviewed Medical History Constipation COVID-19 vaccine series completed Depression Developmental delay, mild Frequency of micturition History of diverticulosis History of ETOH abuse History of intravenous drug abuse HIV (human immunodeficiency virus infection) Hx of acute pancreatitis Hx of acute renal failure Hx of hepatitis C Hx of herpes genitalis Hyperlipidemia Hypothyroidism Nocturia PTSD (post-traumatic stress disorder) Seasonal allergies Surgical History History of colonoscopy Family History Family History Mother Breast cancer HTN (hypertension) Alzheimer disease Social History Social History Housing: Assisted Living Facility Housing Other:: Custodial Are you a primary associate director career services to a significant other at home: No Alcohol intake: former Patient Tobacco Use Status: Never used Tobacco Substance Use Type: Crack/Cocaine Advance Directives: No Advance Directives Information Provided: No Physical Exam ED Vital Signs: Vital Signs - 24 hr 06/08/22 17:03 Temperature 98.0 F Pulse Rate 85 Respiratory Rate 18 Blood Pressure 126/64 Pulse Oximetry 99 Oxygen Delivery Method Room Air BMI result Body Mass Index 29.5 Const General: cooperative, no acute distress, alert and awake Nutritional Appearance: well nourished Orientation/consciousness: patient oriented x3 Limitations: no limitations HENMT Head: Yes normal to inspection and Yes atraumatic Ears: hearing grossly normal bilaterally and external ears normal General nose exam: Normal external nose present, no nasal discharge noted and no epistaxis Face and sinus: Yes normal facial exam, No abrasion and No laceration Mouth: Normal oral and palatal mucosa present, no drooling and no muffled voice Eyes General: appearance normal, both eyes and all related structures Periorbital: periorbital findings normal Eyelids: Yes eyelids normal Conjunctivae: conjunctivae normal Pupils: Equal, round and reactive pupils present EOM: EOMs intact bilaterally Neck Neck: Yes normal visual inspection, Yes full ROM and Yes no lymphadenopathy Chest Chest palpation & inspection: normal inspection of the chest Resp Effort & Inspection: normal respiratory effort and able to speak in complete sentences Auscultation: clear to auscultation bilaterally Cardio Rate: regular rate Rhythm: regular rhythm GI Inspection: Yes normal to inspection Palpation (GI): Soft to palpation, not firm, nontender, no guarding and not rigid Neuro General: patient oriented x3 and moves all extremities Cranial nerves: Yes Equal, round and reactive pupils present Cognition (Neuro): normal cognition Motor exam (neuro): 5/5 motor strength present throughout Sensory Exam: Normal double simultaneous stimulation for sensation Coordination: utclwd-me-ihke test normal Extrem General: Yes normal to inspection, Yes full ROM and Yes capillary refill normal Psych Appearance: grossly normal Mental Status: mental status grossly normal Affect: normal affect Attitude: cooperative Thought process: Normal thought process present Thought content: Normal thought content present Insight: Good insight present (Psych) Course Course Course Narrative: RME performed by Elizabeth Henson, PA-C. Patient is a 61 year old female presenting to the emergency department with nausea, vomiting, and feeling generally unwell. CBC, CMP, UA, and COVID/Influenza/RSV swab ordered. Patient to be placed back in the waiting room pending results and bed availability. Medical Decision Making MDM Narrative Medical decision making narrative: Patient is a 61 year old assigned female at with a history of GERD presenting to the emergency department today with nausea and vomiting. Patient's physical exam was unremarkable. Patient's blood work was unremarkable. Patient's rapid flu swab was positive. I explained my physical exam findings as well as all test results to the patient and the patient's correction staff. I answered all questions asked by the patient and the patient's correction staff. I stressed the importance of the patient taking her medication as prescribed. I stressed the importance of the patient following up with her primary care provider. I stressed the importance of the patient returning to the emergency department immediately if her symptoms were to worsen or if she were to develop any dizziness, shortness of breath, difficulty breathing, chest pain, blurry vision, loss of vision, nausea, vomiting, abdominal pain, fever, chills, back pain, or any other complaints. Patient and the patient's correction staff verbalized agreement and understanding with this treatment plan and discharge. Medical Records Medical records reviewed: Yes I reviewed the patient's medical records. Lab Data Lab results reviewed: Yes I reviewed the patient's lab results. Result diagrams: 06/08/22 18:59 06/08/22 18:59 Labs: Lab Results 06/08/22 06/08/22 06/08/22 Range/Units 18:59 18:59 18:59 WBC 2.8 L (4.8-10.8) X10*3/uL RBC 3.61 L (4.20-5.50) X10*6/uL Hgb 12.6 (12.0-16.0) g/dl Hct 37.2 (37.0-47.0) % MCV 103.0 H (80.0-98.0) fL MCH 34.9 H (27.0-33.0) pg MCHC 33.9 (31.0-35.0) g/dl RDW 12.3 (11.0-16.0) % Plt Count 67 L (160-400) X10*3/uL MPV 9.8 (9.4-12.3) fL Immature Gran % (Auto) 0.4 (0.0-0.4) % Neut % (Auto) 54.7 (45-73) % Lymph % (Auto) 37.7 (20-40) % Angelina % (Auto) 5.8 (2-11) % Eos % (Auto) 1.4 (0-4) % Baso % (Auto) 0.0 (0-2) % Lymph # (Auto) 1.0 L (1.2-4.9) X10*3/uL Angelina # (Auto) 0.2 (0.1-1.2) X10*3/uL Eos # (Auto) 0.0 (0.0-0.4) X10*3/uL Baso # (Auto) 0.0 (0.0-0.2) X10*3/uL Abs Immat Gran (auto) 0.01 (0.00-0.03) X10*3/uL Absolute Neuts (auto) 1.5 L (2.0-8.3) x10*3/uL Absolute Nucleated RBC 0.000 (0.0-0.012) X10*3/uL Nucleated RBC % (auto) 0.0 (0.0-0.2) /100WBC Sodium 137 (135-145) mmol/L Potassium 4.5 (3.3-5.1) mmol/L Chloride 101 (96-108) mmol/L Carbon Dioxide 30 H (22-29) mmol/L Anion Gap 11 L (12-20) BUN 18 H (9-16) mg/dL Creatinine 1.03 (0.5-1.4) mg/dL Estim Creat Clear Calc 63.0 Estimated GFR 55 Random Glucose 99 (60-115) mg/dL Calcium 9.2 (8.4-10.2) mg/dL Magnesium 2.2 (1.6-2.6) mg/dL Total Bilirubin 0.7 (0.0-1.0) mg/dL AST 17 (5-31) U/L ALT 15 (0-31) U/L Alkaline Phosphatase 37 L (39-117) U/L Total Protein 7.0 (6.5-8.0) g/dL Albumin 4.5 (3.5-5.0) g/dL Influenza Type A (PCR) POSITIVE A (Negative) Influenza Type B (PCR) NEGATIVE (Negative) RSV RNA Qual (PCR) NEGATIVE (Negative) SARS-CoV-2 RNA (RT-PCR) NEGATIVE (Negative) Discharge Plan Discharge Clinical Impression: Influenza Patient Disposition: Home, Self-Care Instructions: Influenza (ED) Additional Instructions: Follow up with your primary care provider. Return to the emergency department immediately if your symptoms worsen or if you develop any dizziness, shortness of breath, difficulty breathing, chest pain, blurry vision, loss of vision, nausea, vomiting, abdominal pain, fever, chills, back pain, or any other complaints. Prescriptions: New ondansetron 4 mg tablet,disintegrating 4 mg PO Q8H 3 Days Qty: 9 0RF No Action levothyroxine 75 mcg tablet 75 mcg PO QAM Qty: 28 10RF omeprazole 20 mg tablet,delayed release (DR/EC) 20 mg PO QAM Qty: 28 0RF sennosides-docusate sodium [Stimulant Laxative Plus] 8.6-50 mg tablet 1 tab-cap PO .COMPLEX Qty: 12 0RF Rx Instructions: 1 tab-cap orally 3 x week; simethicone 180 mg Capsule 180 mg PO BID PRN (Reason: Gastrointestinal Spasms Or Cramping) polyvinyl alcohol 1.4 % Drops 1 drp OPHTHALMIC (EYE) BID PRN (Reason: Dry Eyes) cyanocobalamin (vitamin B-12) [Vitamin B-12] 1,000 mcg Tablet 1,000 mcg PO DAILY acetaminophen 500 mg Tablet 500 mg PO Q6H PRN (Reason: Pain) folic acid 1 mg Tablet 1 mg PO DAILY cholecalciferol (vitamin D3) [Vitamin D3] 25 mcg (1,000 unit) Capsule 25 mcg PO DAILY multivitamin,wd-jsxo-Ys-FA-min 27-0.4 mg Tablet 1 tab PO DAILY sodium chloride [Saline Nasal] 0.65 % Aerosol,[place] 1 spray INTRANASAL BID calcium carbonate-vitamin D3 [Calcium 600 + D(3)] 600 mg(1,500mg) -400 unit Tablet 1 tab PO BID Biktarvy 50-200-25 mg Tablet 1 tab PO DAILY quetiapine 50 mg tablet 50 mg PO BID simvastatin 20 mg tablet 20 mg PO BEDTIME alendronate 70 mg tablet 70 mg PO QWEEK trazodone 100 mg tablet 200 mg PO BEDTIME sertraline 100 mg tablet 150 mg PO BEDTIME albuterol sulfate 90 mcg/actuation HFA aerosol inhaler 0 mcg inhalation oxybutynin chloride 5 mg tablet extended release 24 hr 5 mg PO DAILY 90 Days Qty: 90 3RF Referrals: [facility] [Primary Care Provider] - Stand Alone Forms: Work/School Release Interventions: ED Discharge Assessment Last Done: 06/08/22 20:08 Discharge Date/Time: 06/08/22 20:10 Print Language: Yoruba
[2022-06-08 19:06] LABS: Eosinophils Percent Auto 1.4 % (0-4); Hematocrit 37.2 % (37.0-47.0); Hemoglobin 12.6 g/dl (12.0-16.0); Imm Gran Abs Auto 0.01 X10*3/uL (0.00-0.03); Imm Gran Pct Auto 0.4 % (0.0-0.4); Lymphocytes Percent Auto 37.7 % (20-40); MANUAL DIFF FLAG NO; Mean Corpuscular HGB Conc 33.9 g/dl (31.0-35.0); Mean Corpuscular Hemoglobin 34.9 pg (27.0-33.0); Mean Platelet Volume 9.8 fL (9.4-12.3); Monocytes Absolute Auto 0.2 X10*3/uL (0.1-1.2); Monocytes Percent Auto 5.8 % (2-11); Neutrophils Absolute Auto 1.5 x10*3/uL (2.0-8.3); Neutrophils Percent Auto 54.7 % (45-73); Red Blood Count 3.61 X10*6/uL (4.20-5.50); Red Cell Distribution Width 12.3 % (11.0-16.0); White Blood Count 2.8 X10*3/uL (4.8-10.8)
[2022-06-08 19:14] LABS: Platelet Count 67 X10*3/uL (160-400)
[2022-06-08 19:25] LABS: Alanine Aminotransferase 15 U/L (0-31); Albumin Level 4.5 g/dL (3.5-5.0); Alkaline Phosphatase 37 U/L (39-117); Anion Gap 11 (12-20); Aspartate Amino Transferase 17 U/L (5-31); Bilirubin Total 0.7 mg/dL (0.0-1.0); Blood Urea Nitrogen 18 mg/dL (9-16); Calcium 9.2 mg/dL (8.4-10.2); Carbon Dioxide 30 mmol/L (22-29); Chloride 101 mmol/L (96-108); Estimated Glomerular Filt Rate 55; Glucose Random 99 mg/dL (60-115); Magnesium 2.2 mg/dL (1.6-2.6); Potassium 4.5 mmol/L (3.3-5.1); Sodium 137 mmol/L (135-145)
[2022-06-08 19:53] LABS: Influenza A PCR POSITIVE (Negative); Influenza B PCR NEGATIVE (Negative); Resp Syncy Virus RNA Qual PCR NEGATIVE (Negative); SARS COV2 PCR INHOUSE NEGATIVE (Negative)
== END 2022-06-08 20:10 | disposition home or self-care (01) ==
PROVIDERS: Physician Assistant Medical; Emergency Provider Emergency Medicine Emergency Medical Services
DX: J10.1 Influenza due to other identified influenza virus with other respiratory manifestations (principal); R11.2 Nausea with vomiting, unspecified; Z20.822 Contact with and (suspected) exposure to COVID-19; Z79.899 Other long term (current) drug therapy
CPT/HCPCS: 0241U; 80053; 83735; 85025; 99282; 99283

== ENCOUNTER → 2022-07-26 09:20 | Outpatient (BNVA) | payer MEDICARE, MEDICAID, SELFPAY | PROVIDERS: PCP Nurse Practitioner Primary Care; Visit Provider Internal Medicine Gastroenterology | DX: Z12.11 Encounter for screening for malignant neoplasm of colon (principal); K21.9 Gastro-esophageal reflux disease without esophagitis; K74.60 Unspecified cirrhosis of liver; K62.5 Hemorrhage of anus and rectum | CPT/HCPCS: 99212 ==

== ENCOUNTER 2022-09-11 12:34 | Outpatient (REF) | payer MEDICARE, MEDICAID, SELFPAY | END 2022-09-11 12:35 | disposition home or self-care (01) | LOC: HO.HAP 12:34 | PROVIDERS: Visit Provider Nurse Practitioner Primary Care | DX: Z46.1 Encounter for fitting and adjustment of hearing aid (principal); H90.3 Sensorineural hearing loss, bilateral | CPT/HCPCS: 92593; 99499; V5266 ==

== ENCOUNTER 2022-09-25 09:25 | Outpatient (REF) | payer MEDICARE, MEDICAID, SELFPAY | END 2022-09-25 09:26 | disposition home or self-care (01) | LOC: HO.HAP 09:25 | PROVIDERS: Visit Provider Nurse Practitioner Primary Care | DX: Z46.1 Encounter for fitting and adjustment of hearing aid (principal); H90.3 Sensorineural hearing loss, bilateral | CPT/HCPCS: V5014 ==

== ENCOUNTER → 2022-11-13 08:48 | Outpatient (BNVA) | payer MEDICARE, MEDICAID, SELFPAY | PROVIDERS: PCP Nurse Practitioner Primary Care; Visit Provider Obstetrics & Gynecology | DX: Z01.419 Encounter for gynecological examination (general) (routine) without abnormal findings (principal); N95.0 Postmenopausal bleeding | CPT/HCPCS: 99212 ==

== ENCOUNTER 2022-11-27 09:26 | Outpatient (REF) | payer MEDICARE, MEDICAID, SELFPAY ==
--- NOTE | ~2022-11-27 | MM_ITS ---
EXAMINATION: MM SCREENING DIGITAL BREAST TOMOSYNTHESIS, BILATERAL CLINICAL INFORMATION: Screening. Asymptomatic. The lifetime risk of breast cancer based on the Tyrer-Cuzick Model is 7%. COMPARISON: Mammography: 11/09/2021, 09/09/2020, 09/01/2019 TECHNIQUE: Digital breast tomosynthesis is performed in both the craniocaudal and mediolateral oblique views along with computer-aided detection (CAD). Synthesized 2D images are generated from the tomosynthesis. FINDINGS: There are scattered areas of fibroglandular density (ACR BI-RADS breast composition Category b). There are no significant masses, abnormal calcifications, or other abnormalities. There is no developing density or architectural abnormality. There is chronic bilateral nipple retraction similar to prior studies. No skin thickening. No coarsening of the stromal markings. MM/MM tomosynthesis screening BI IMPRESSION: No significant changes from prior exams. ASSESSMENT: BI-RADS 2: Benign RECOMMENDATION: Routine annual mammography screening. This patient's information was entered into a reminder system with a target due date for their next mammogram.
== END 2022-11-27 09:27 | disposition home or self-care (01) ==
LOC: HO.MAMMO 09:26
PROVIDERS: PCP Nurse Practitioner Primary Care; Visit Provider Obstetrics & Gynecology
DX: Z12.31 Encounter for screening mammogram for malignant neoplasm of breast (principal)
CPT/HCPCS: 77063; 77067

== ENCOUNTER 2022-12-05 11:14 | Outpatient (REF) | payer MEDICARE, MEDICAID, SELFPAY ==
--- NOTE | ~2022-12-05 | US_ITS ---
EXAMINATION: US PELVIS CLINICAL INFORMATION: Postmenopausal bleeding COMPARISON: None available. TECHNIQUE: Ultrasound of the pelvis is performed using both transabdominal and transvaginal transducers along with Doppler. Transvaginal imaging is performed due to inadequate visualization transabdominally. FINDINGS: UTERUS: The uterus is retroverted and retroflexed and measures 5.0 x 2.5 x 3.7 cm. The double wall endometrial thickness is 0.4 cm. There are small echogenic calcifications in the endometrium and myometrium. The uterus is smooth in contour and has normal myometrial echogenicity. No visible fibroid. ADNEXA: Both ovaries are not visualized. There is a small amount of free fluid in the cul-de-sac. US/US pelvic and transvaginal IMPRESSION: 1. Unremarkable uterus. 2. Ovaries are not seen. 3. Small amount of free fluid.
== END 2022-12-05 11:15 | disposition home or self-care (01) ==
LOC: HO.US 11:14
PROVIDERS: PCP Nurse Practitioner Primary Care; Visit Provider Obstetrics & Gynecology
DX: N95.0 Postmenopausal bleeding (principal)
CPT/HCPCS: 76830; 76856

== ENCOUNTER → 2022-12-20 10:08 | Outpatient (BNVA) | payer MEDICARE, MEDICAID, SELFPAY | PROVIDERS: PCP Nurse Practitioner Primary Care; Visit Provider Obstetrics & Gynecology | DX: N95.0 Postmenopausal bleeding (principal) | CPT/HCPCS: 99212 ==

== ENCOUNTER 2023-02-26 14:49 | Outpatient (AMB) | payer MEDICARE, MEDICAID, SELFPAY ==
--- NOTE | 2023-02-26 15:12 | A.OFFVIS_ITS ---
Intake Intake Visit Reasons: 1y/PVR Intake Note: Patient is present for Follow Up PVR Urology Med: Oxybutynin Antibiotic Allergy: Penicillins Blood Thinner: None Pharmacy: [facility] PVR:0 Allergies abacavir [ABACAVIR] Allergy (Severe, Verified 02/26/23 15:13) HIVES hydrochlorothiazide [HYDROCHLOROTHIAZIDE] Allergy (Severe, Verified 02/26/23 15:13) HIVES ibuprofen [From MOTRIN] Allergy (Severe, Verified 02/26/23 15:13) HIVES Penicillins [PENICILLINS] Allergy (Severe, Verified 02/26/23 15:13) HIVES tenofovir [From VIREAD] Allergy (Severe, Verified 02/26/23 15:13) HIVES tomato [TOMATO] Allergy (Severe, Verified 02/26/23 15:13) HIVES zidovudine [From RETROVIR] Allergy (Severe, Verified 02/26/23 15:13) HIVES lactose [Lactose] Allergy (Unknown, Verified 02/26/23 15:13) DIARRHEA Medication List - Last Reconciled 02/26/23 by Ren Everett MD acetaminophen 500 mg PO Q6H PRN albuterol sulfate 90 mcg/actuation 0 mcg inhalation alendronate 70 mg PO QWEEK qfugyrilc-motnddxd-dcedefb ala 50-200-25 mg (Biktarvy) 1 tab PO DAILY calcium carbonate-vitamin D3 600 mg-10 mcg (400 unit) (Calcium 600 + D(3)) 1 tab PO BID cholecalciferol (vitamin D3) (Vitamin D3) 25 mcg PO DAILY cyanocobalamin (vitamin B-12) (Vitamin B-12) 1,000 mcg PO DAILY folic acid 1 mg PO DAILY levothyroxine 75 mcg PO QAM multivitamin,ba-wuji-Fy-FA-min 27-0.4 mg 1 tab PO DAILY omeprazole 20 mg PO QAM ondansetron 4 mg PO Q8H 3 days oxybutynin chloride ER 5 mg PO DAILY 90 days polyvinyl alcohol 1.4% 1 drp ophthalmic (eye) BID PRN quetiapine 50 mg PO BID sennosides-docusate sodium 8.6-50 mg (Stimulant Laxative Plus) 1 tab-cap orally 3 x week; 90 days sertraline 150 mg PO BEDTIME simethicone 180 mg PO BID PRN simvastatin 20 mg PO BEDTIME sodium chloride 0.65% (Saline Nasal) 1 spray intranasal BID trazodone 200 mg PO BEDTIME HPI HPI Comments History of Present Illness Details Adrianne is a pleasant female. She is a patient of Dr. Lindsay. She seen for the following urologic conditions. - urinary urgency frequency Accompanied by social services manager Frequency controlled with medications Prescription provided Urinary urgency frequency Longstanding Is on a number of medications with anticholinergic side effects Current therapy includes oxybutynin 5 mg ER Minimal complications Good control during the day Has previously had dysuria with normal UA Yearly review [facility] Medical History Constipation COVID-19 vaccine series completed Depression Developmental delay, mild Frequency of micturition History of diverticulosis History of ETOH abuse History of intravenous drug abuse HIV (human immunodeficiency virus infection) Hx of acute pancreatitis Hx of acute renal failure Hx of hepatitis C Hx of herpes genitalis Hyperlipidemia Hypothyroidism Nocturia PTSD (post-traumatic stress disorder) Seasonal allergies Surgical History History of colonoscopy Family History Mother Breast cancer HTN (hypertension) Alzheimer disease Social History Housing: Assisted Living Facility Housing Other:: [facility] Are you a primary healthcare educator to a significant other at home: No Alcohol intake: former Patient Tobacco Use Status: Never used Tobacco Substance Use Type: Crack/Cocaine Female Reproductive History Menstrual Age of Menarche: 11 Review of Systems Const Denies chills and Denies fever(s) Card Reports no additional complaints and Denies syncope Resp Denies cough GI Denies abdominal pain and Denies heartburn Reports as per HPI and Denies change in libido Neuro Denies syncope Psych Denies change in libido Endo Denies change in libido Physical Exam Const General: cooperative, healthy appearing, comfortable and no acute distress Orientation/consciousness: patient oriented x3 HEENT Face and sinus: Yes normal facial exam Mouth: moist mucous membranes Neck Neck: Yes normal visual inspection, Yes full ROM and Yes trachea midline Chest Chest palpation & inspection: normal inspection of the chest Resp Effort & Inspection: normal respiratory effort, able to speak in complete sentences and no respiratory distress GI Inspection: Yes normal to inspection Back/Spine/Pelvis Cervical Spine: normal cervical lordosis Thoracic/Lumbar Spine: thoracic and lumbar spine normal to inspection Skin General skin exam: no rashes or lesions noted Neuro General: patient oriented x3, gait normal, tone normal and moves all extremities Extrem General: Yes normal to inspection and Yes capillary refill normal Office Procedures Post Void Residual Post Residual Void Post Void Residual (PVR): 0 [id number] Void Residual by ultrasound Results AMB Urinalysis, Automated UA Leukoctes 70 Patrick/uL Last Edit by Amanda Crabtree [facility] on 02/26/23 15:18 UA Nitrite Negative Last Edit by Amanda Crabtree A on 02/26/23 15:18 UA Urobilinogen 0.2 mg/dL Last Edit by Amanda Crabtree A on 02/26/23 15:1 8 UA Protein 0 mg/dL Last Edit by Amanda Crabtree A on 02/26/23 15:18 UA pH 6.0 Last Edit by Amanda Crabtree [facility] on 02/26/23 15:18 UA Blood 0 New/uL Last Edit by Amanda Crabtree [facility] on 02/26/23 15:18 UA Specific [place] 1.010 Last Edit by Amanda Crabtree [facility] on 02/26/23 15: 18 UA Ketone Negative Last Edit by Amanda Crabtree A on 02/26/23 15:18 UA Bilirubin 0 mg/dL Last Edit by Amanda Crabtree [facility] on 02/26/23 15:18 UA Glucose 0 mg/dL Last Edit by Amanda Crabtree [facility] on 02/26/23 15:18 Results Reviewed Results Reviewed: Laboratory Last Values Urine pH (Auto) 6.0 02/26/23 15:13 Specific [place] (Auto) 1.010 02/26/23 15:13 Urine Protein (Auto) 0 mg/dL 02/26/23 15:13 Glucose (UA)(Auto) 0 mg/dL 02/26/23 15:13 Urine Ketones (Auto) Negative 02/26/23 15:13 Urine Blood (Auto) 0 New/uL 02/26/23 15:13 Urine Nitrite (Auto) Negative 02/26/23 15:13 Urine Bilirubin (Auto) 0 mg/dL 02/26/23 15:13 Urine Urobilinogen (Auto) 0.2 mg/dL 02/26/23 15:13 Leukocyte Esterase (Auto) 70 Patrick/uL 02/26/23 15:13 Assessment & Plan Assessment & Plan (1) Overactive bladder: Code(s): N32.81 - Overactive bladder Plan Twelve month Orders: Orders AMB Post Void Residual by ultrasound 02/26/23 N39.0 - Urinary tract infection, site not specified AMB Urinalysis Automated 02/26/23 Z13.9 - Encounter for screening, unspecified Medications: Refilled oxybutynin chloride ER 5 mg PO DAILY 90 tabs 3RF 90 days N32.81 - Overactive bladder Patient Instructions: Imaging studies, laboratory and physical exam results were discussed and reviewed in detail. No major barriers to patient understanding were identified. An opportunity to ask questions regarding the treatment plan was provided. All questions were answered. The patient expressed understanding and agreement with the above treatment plan. The patient is aware they should contact our office by phone for worsening of their current condition or the appearance of new urologic symptoms. Compliance is encouraged with any medications and followup testing that is ordered. It is a privilege to participate in the urologic care of your patient. If you have any questions or concerns regarding treatment for the above conditions, or other urologic issues, please do not hesitate to contact me. The office telephone contact is [phone]. This note is constructed using voice recognition software. While every effort has been made to ensure accuracy operator lights errors may have been included. Yours sincerely, Dr Ren Everett MD, [facility] - Urology Providers of Expert, Compassionate Care for the Genitourinary System Coding Level of Care Code Est Pt Level 4 (27667) Diagnoses Overactive bladder N32.81 CPT Codes Post Residual Void - PVR CPT Code: 15105-Cnoe Void Residual by ultrasound ([id number])
== END 2023-02-26 15:55 | disposition home or self-care (01) ==
PROVIDERS: PCP Nurse Practitioner Primary Care; Visit Provider Urology
DX: N32.81 Overactive bladder (principal)
CPT/HCPCS: 99214

== ENCOUNTER → 2023-02-26 14:49 | Outpatient (BNVA) | payer MEDICARE, MEDICAID, SELFPAY | PROVIDERS: PCP Nurse Practitioner Primary Care; Visit Provider Urology | DX: N32.81 Overactive bladder (principal) | CPT/HCPCS: 51798; 81003; 99212 ==

== ENCOUNTER 2023-03-29 15:56 | Outpatient (REF) | payer MEDICARE, MEDICAID, SELFPAY ==
[2023-03-29 17:21] LABS: MANUAL DIFF FLAG NO
[2023-03-29 17:32] LABS: Basophils Percent Auto 0.2 % (0-2); Eosinophils Percent Auto 0.6 % (0-4); Hemoglobin 13.4 g/dl (12.0-16.0); Imm Gran Abs Auto 0.01 X10*3/uL (0.00-0.03); Imm Gran Pct Auto 0.2 % (0.0-0.4); Lymphocytes Absolute Auto 1.7 X10*3/uL (1.2-4.9); Lymphocytes Percent Auto 34.4 % (20-40); Mean Corpuscular HGB Conc 34.4 g/dl (31.0-35.0); Mean Corpuscular Hemoglobin 35.1 pg (27.0-33.0); Mean Corpuscular Volume 102.1 fL (80.0-98.0); Mean Platelet Volume 10.3 fL (9.4-12.3); Monocytes Absolute Auto 0.2 X10*3/uL (0.1-1.2); Monocytes Percent Auto 4.6 % (2-11); Red Blood Count 3.82 X10*6/uL (4.20-5.50); Red Cell Distribution Width 12.4 % (11.0-16.0)
[2023-03-29 17:34] LABS: Platelet Count 98 X10*3/uL (160-400)
[2023-03-29 17:37] LABS: Alanine Aminotransferase 18 U/L (0-31); Albumin Level 4.5 g/dL (3.5-5.0); Alkaline Phosphatase 42 U/L (39-117); Anion Gap 15 (12-20); Aspartate Amino Transferase 22 U/L (5-31); Bilirubin Total 0.6 mg/dL (0.0-1.0); Blood Urea Nitrogen 19 mg/dL (9-16); Calcium 9.3 mg/dL (8.4-10.2); Carbon Dioxide 21 mmol/L (22-29); Chloride 110 mmol/L (96-108); Estimated Glomerular Filt Rate 45; Glucose Random 125 mg/dL (60-115); Potassium 3.9 mmol/L (3.3-5.1); Sodium 142 mmol/L (135-145); Total Protein 7.3 g/dL (6.5-8.0)
[2023-04-02 07:24] LABS: Absolute CD3 Count 1474 cells/uL (840-3060); Absolute CD4 Count 782 cells/uL (490-1740); Absolute CD8 Count 720 cells/uL (180-1170); Absolute Lymphocytes 1723 cells/uL (850-3900); CD4 CD8 Ratio 1.09 (0.86-5.00); Percent CD3 Cells 86 % (57-85); Percent CD4 Cells 45 % (30-61); Percent CD8 Cells 42 % (12-42)
[2023-04-02 13:19] LABS: HIV RNA PCR Qn Copies 123 copies/mL (NOT DETECTED); HIV RNA PCR Qn Log Copies 2.09 (NOT DETECTED)
== END 2023-03-29 15:57 | disposition home or self-care (01) ==
LOC: HO.HHCL 15:56
PROVIDERS: Visit Provider Student in an Organized Health Care Education/Training Program
DX: B20 Human immunodeficiency virus [HIV] disease (principal)
CPT/HCPCS: 36415; 80053; 85025; 86359; 86360; 87536

== ENCOUNTER 2023-05-09 12:58 | Outpatient (AMB) | payer MEDICARE, MEDICAID, SELFPAY ==
--- NOTE | 2023-05-09 13:08 | MHC.OFFVIS ---
Intake Vital Signs 05/09/23 13:29 Height 5 ft 6 in Weight 187 lb 6.287 oz BMI 30.2 BP 149/72 H Blood Pressure Location Lt brachial Position Sitting Pulse 84 Pulse Source Pulse Oximeter Pulse Oximetry (%) 98 Oxygen Delivery Method Room Air Intake Visit Reasons: 6 month follow up Intake Note: Pt presents to the office today for a 6 month follow up. Pt states she has bad gas pains. Pt states it is hard for her to go to the bathroom. Pt states she is able to produce a bowel movement but she states it is usually hard when she is having a bowel movement. Allergies abacavir [ABACAVIR] Allergy (Severe, Verified 05/09/23 13:34) HIVES hydrochlorothiazide [HYDROCHLOROTHIAZIDE] Allergy (Severe, Verified 05/09/23 13:34) HIVES ibuprofen [From MOTRIN] Allergy (Severe, Verified 05/09/23 13:34) HIVES Penicillins [PENICILLINS] Allergy (Severe, Verified 05/09/23 13:34) HIVES tenofovir [From VIREAD] Allergy (Severe, Verified 05/09/23 13:34) HIVES tomato [TOMATO] Allergy (Severe, Verified 05/09/23 13:34) HIVES zidovudine [From RETROVIR] Allergy (Severe, Verified 05/09/23 13:34) HIVES lactose [Lactose] Allergy (Unknown, Verified 05/09/23 13:34) DIARRHEA disoproxail Allergy (Mild, Uncoded 05/09/23 13:34) Unknown HPI 6 month follow up HPI Details FU GI CLINIC VISIT FOR THIS 62-YEAR-OLD FEMALE FOR FOLLOW-UP OF LIVER CIRRHOSIS WITH ELEVATED LFTS. ? CHRONIC ILLNESSES:?seasonal allergies, hepatitis C - treated, human immunodeficiency virus (HIV), positive, GERD, lactose intolerance, depression, insomnia, PTSD, herpes, prediabetic, hyperlipidemia ?[facility] REVIEWED. WBC 4.4, HEMATOCRIT 43.1 PLATELET 85, INR 1.0 ? CR 1.25, TB 0.9 nA 144, total bilirubin 0.6 WITH NORMAL LFTS ? Iron studies showed iron 73, TIBC 354, % saturation 21, ferritin 344 ? Celiac serologies were negative, IgA was 131 ? Liver fibrosis score 0.63, liver fibrosis stage F3, necroinflammatory score 0.46 ?IMAGING STUDIES: 06/28/21 abd us showed: Slightly echogenic liver. No focal liver lesion is seen. Enlarged spleen. No ascites. Normal liver Doppler exam. 08/2020 Question mild cirrhotic changes of the liver. No focal liver lesion seen. Splenomegaly. ?ENDOSCOPIC STUDIES:?02/07/21 COLONOSCOPY SHOWED: One medium sized polyp removed. Random biopsies were obtained from right and left colon to check for microscopic colitis Moderate diverticulosis seen in the left colon Plan:? Patient has an appointment on 02/23/21 in the GI Clinic with? Helena Coon M.D. Repeat Colonoscopy interval based on path results - in 3 years if polyp is adenomatous and 10 years if polyp is hyperplastic. BIOPSIES SHOWED: A.? Colon, random right, biopsy:? Colonic mucosa within normal limits; negative for active, chronic or microscopic colitis. B.? Colon, random left, biopsy:? Colonic mucosa within normal limits; negative for active, chronic or microscopic colitis. C.? Rectum, polypectomy:? Clinically polypoid colonic mucosa noted; negative for a hyperplastic or neoplastic process. 09/08/19 EGD WAS NORMAL, NO VARICES WERE SEEN. ? SAME-DAY COLONOSCOPY REVEALED MODERATE DIVERTICULOSIS AND NO POLYPS WERE DETECTED. ? REPEAT COLONOSCOPY IS ADVISED IN 5 YEARS DUE TO FAIR PREP AND POSITIVE FH OF COLON POLYPS (DAD). ? TODAY'S VISIT Pt is accompanied by a staff member of [facility] Skilled [facility] Having a BM daily with straining and hard stools Also has gas. Taking Senna 3 times a week. PAST VISIT: Had COVID in June Loosing and gaining weight. Has loose stools 2-3 times a day without blood or mucous. Notes diarrhea with cheese and milk products and takes Lactaid milk. Feels tired and notes nausea. Complains of pain in the botton of her foot. Intermittent abdominal pain. Had a BM twice this week. Has a BM after she eats ice cream or takes a Latte ? Doing about the same. Denies recurrent rectal bleeding Complains of heartburn once in a while. Occasional loose stools and takes loperamide prn. ? Has GERD and notes dysphagia if she drinks water too fast. Lives in a Residential Home setting in her own apartment in [place]. ? Has had care at [facility] and [facility] in the past. ? 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 ? Also heavy ETOH use from age 18/18 till age 39 yrs - clean and sober since then. ? Renal Failure and pancreatitis in 2008. ? Had vomiting and Jaundice in 2009 - diagnosed with Hep C and ?was treated. ? Constantly tired and fatigued. ? 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 ?PAST VISIT: US results reviewed with the patient Bleeding stopped - notes only once in a while. Notes a sharp pain in her abdomen when she pushes during a BM. Notes hard stools. ?Intentional wt loss of 35 lbs - has been eating healthy - from 210 to 181 lbs. ? I am always constipated. ? Intermittent diarrhea - takes medications when she has diarrhea. ? Denies abdominal pain. ? Continues to have intermittent bleeding _ ? vaginal versus rectal ? Intermittent vaginal bleeding - 2-3 times this week. scheduled for pelvic US on 12/22/20 ? every time she wipes she notices some blood - unsure if she is bleeding from the vagina. ? ? ? Periods stopped when she was 39 yrs ? ? ? Denies having a recent Pelvic examination. ? ? ? Notices lower abdominal cramps - like menstrual cramps. ? ? ? Exercising daily (does Kavin) and weighs 183 lbs (decreased from 210 lbs). ? ? ? Eating a healthy diet. ? I am doing fine and walk around ? I am always tired ? Lost weight from > 200 to 194 ? Has been doing well and denies stomach issues at this time. ? Patient denies change in bowel habits, black stools or rectal bleeding ? Denies dysphagia, heartburn, nausea or vomiting, change in appetite?or we [facility] Medical History Hypothyroidism Hx of acute pancreatitis Hx of acute renal failure History of ETOH abuse Hx of herpes genitalis History of diverticulosis Constipation History of intravenous drug abuse Developmental delay, mild COVID-19 vaccine series completed Depression PTSD (post-traumatic stress disorder) Hyperlipidemia Seasonal allergies Hx of hepatitis C HIV (human immunodeficiency virus infection) Nocturia Frequency of micturition Surgical History History of colonoscopy Family History Mother Breast cancer HTN (hypertension) Alzheimer disease Social History (Updated 05/09/23 @ 13:35 by Chelsy Ross MA) Housing: Assisted Living Facility Housing Other:: Skilled Nursing Are you a primary critical care nurse practitioner to a significant other at home: No Alcohol intake: former Patient Tobacco Use Status: Never used Tobacco Female Reproductive History Menstrual Age of Menarche: 11 Review of Systems Const All systems reviewed & are unremarkable except as noted in HPI and below Physical Exam Vital Signs: Last Vital Signs Pulse 84 05/09/23 13:29 BP 149/72 H 05/09/23 13:29 Pulse Ox 98 05/09/23 13:29 Oxygen Delivery Method Room Air 05/09/23 13:29 BMI result Body Mass Index 30.2 Assessment & Plan Assessment & Plan (1) Chronic constipation: Code(s): K59.09 - Other constipation (2) Thrombocytopenia: Code(s): D69.6 - Thrombocytopenia, unspecified (3) GERD (gastroesophageal reflux disease): Code(s): K21.9 - Gastro-esophageal reflux disease without esophagitis (4) Cirrhosis of liver without ascites: Code(s): K74.60 - Unspecified cirrhosis of liver (5) Colon cancer screening: Comment: 09/24 COLONOSCOPY REVEALED MODERATE DIVERTICULOSIS AND NO POLYPS WERE DETECTED. REPEAT COLONOSCOPY IS ADVISED IN 5 YEARS DUE TO FAIR PREP AND POSITIVE FH OF COLON POLYPS (DAD) - action set in [facility] Code(s): Z12.11 - Encounter for screening for malignant neoplasm of colon Plan 62 YF with seasonal allergies, hepatitis C - treated, human immunodeficiency virus (HIV), positive, GERD, lactose intolerance, depression, insomnia, PTSD, herpes, prediabetic, hyperlipidemia seen for elevated LFTs with cirrhosis. Patient is on treatment for HIV. She has a history of past hepatitis C which has been treated (records pertaining to treatment are not available) since recent hepatitis C viral load has been negative. Past lab evaluation with [facility] was negative 2017. Likely cause of elevated LFT is steatohepatitis related to obesity - LFT are normal since she lost 27 lbs. Iron studies were not suggestive of hemochromatosis and celiac serologies were normal. Liver fibrosis score was 0.63 and liver fibrosis stage was F3 and necroinflammatory score was 0.46 indicating that she may have compensated cirrhosis. Cirrhosis is likely multifactorial - steatohepatitis, past EtOH use and hepatitis C infection. MELD score is 8. Abdominal ultrasound showed mild splenomegaly without hepatic mass and no ascites. Patient admits to intentional weight loss with the normalization of LFTs indicating elevated LFTs were likely due to steatohepatitis. 05/09/23 Pt complains of worsening constipation. She was advised to increase Senna plus to 2 capsules at bedtime for constipation Schedule an abd US for HCC surveillance. Patient was advised to schedule an abdominal US and follow up in 2 months Medications: Changed From sennosides-docusate sodium 8.6-50 mg (Stimulant Laxative Plus) 1 tab-cap orally 3 x week; 90 days 30 tabs 1RF K59.09 - Other constipation To sennosides-docusate sodium 8.6-50 mg (Stimulant Laxative Plus) 2 tab-caps (2 x 8.6-50 mg) PO BEDTIME 90 days 180 tabs 1RF K59.09 - Other constipation Coding Level of Care Code Est Pt Level 4 (44875) Diagnoses Chronic constipation K59.09 Thrombocytopenia D69.6 GERD (gastroesophageal reflux disease) K21.9 Cirrhosis of liver without ascites K74.60 Colon cancer screening Z12.11 Time Spent (min) 23
[2023-05-09 13:29] VITALS: BP 149/72; PULSE 84; O2SAT 98; BMI 30.2
== END 2023-05-09 14:02 | disposition home or self-care (01) ==
PROVIDERS: PCP Nurse Practitioner Primary Care; Visit Provider Internal Medicine Gastroenterology
DX: K59.09 Other constipation (principal); D69.6 Thrombocytopenia, unspecified; K21.9 Gastro-esophageal reflux disease without esophagitis; K74.60 Unspecified cirrhosis of liver; Z12.11 Encounter for screening for malignant neoplasm of colon
CPT/HCPCS: 99214

== ENCOUNTER → 2023-05-09 12:58 | Outpatient (BNVA) | payer MEDICARE, MEDICAID, SELFPAY | PROVIDERS: PCP Nurse Practitioner Primary Care; Visit Provider Internal Medicine Gastroenterology | DX: Z12.11 Encounter for screening for malignant neoplasm of colon (principal); K59.09 Other constipation; K21.9 Gastro-esophageal reflux disease without esophagitis; K74.60 Unspecified cirrhosis of liver; D69.6 Thrombocytopenia, unspecified | CPT/HCPCS: 99212 ==

== ENCOUNTER 2023-05-13 16:24 | Outpatient (REF) | payer MEDICARE, MEDICAID, SELFPAY ==
[2023-05-24 23:39] LABS: HIV 1 Integrase Proviral DNA DETECTED; HIV 1 PR RT Proviral DNA DETECTED
== END 2023-05-13 16:25 | disposition home or self-care (01) ==
LOC: HO.LAB 16:24
PROVIDERS: PCP Student in an Organized Health Care Education/Training Program; Visit Provider Student in an Organized Health Care Education/Training Program
DX: Z13.89 Encounter for screening for other disorder (principal)
CPT/HCPCS: 36415; 87900; 87901; 87906

== ENCOUNTER 2023-05-16 12:26 | Inpatient (IN) | payer MEDICARE, MEDICAID, SELFPAY ==
--- NOTE | 2023-05-16 | ECG_ITS ---
Test Reason : med clear Blood Pressure : / mmHG Vent. Rate : 072 BPM Atrial Rate : 072 BPM P-R Int : 188 ms QRS Dur : 076 ms QT Int : 446 ms P-R-T Axes : 056 022 033 degrees QTc Int : 488 ms Normal sinus rhythm Nonspecific ST abnormality RSR' or QR pattern in V1 suggests right ventricular conduction delay Abnormal ECG When compared with ECG of 19-FEB-2017 15:16, No significant change was found Referred By: Adrianne Capellan Electronically Signed By:OSITO MENDOZA MD
--- NOTE | ~2023-05-16 | CT_ITS ---
EXAMINATION: CT HEAD WITHOUT CONTRAST CLINICAL INFORMATION: Acute mental status change COMPARISON: Previous head CT from 2007 and brain MRI from 2008 TECHNIQUE: Contiguous axial imaging was performed from the skull base to vertex without intravenous administration of contrast. This CT examination was performed using dose optimization techniques as appropriate, variously including the following: *Automated exposure control *Adjustment of mA and/or kV according to patient size (this includes techniques or standardized protocols for targeted exams where dose is matched to indication/reason for exam; i.e. extremities or head) *Use of iterative reconstruction technique DLP: 770 mGy-cm FINDINGS: There is no evidence of an extra-axial collection. There is no evidence of intra-axial or extra-axial hemorrhage. The ventricles and extra-axial CSF spaces are appropriate. Joyner-white matter differentiation is normal. No mass, mass effect or infarct. No skull fracture. Visualized paranasal sinuses, mastoid air cells and middle ears are clear. CT/CT head/brain wo IV con IMPRESSION: Unremarkable exam.
[2023-05-16] MEDS: Haloperidol Lactate 5 MG/ML VIAL IM (12:35)
[2023-05-16] MEDS: LORazepam 2 MG/ML VIAL 1 MG IM (12:35)
[2023-05-16] MEDS: diphenhydrAMINE HCL 50 MG/ML VIAL 25 MG IM (12:35)
--- NOTE | 2023-05-16 12:36 | HO.SUDE ---
Per [facility], this patient was seen in the community, lives in a DDS assisted and is not her own guardian. Is here awaiting inpatient psychiatric placement/
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
[2023-05-16 13:04] VITALS: PULSE 85; RESP 18; BMI 25.0
[2023-05-16 14:25] VITALS: BP 136/66; PULSE 83; RESP 16; TEMP 36.8; O2SAT 97
[2023-05-16 14:28] LABS: Appearance Urine Clear; Color Urine Yellow; Glucose Urine UA Negative (Negative); Leukocyte Esterase Urine Large (3+) (Negative); Nitrite Urine Negative (Negative); Specific Gravity - Urine <= 1.005 (1.005-1.025); UMIC TRIGGER UACC YES; Urine Blood Negative (Negative); Urine Ketones Negative (Negative); Urine Protein Negative (Neg-Trace)
[2023-05-16 14:30] LABS: Bacteria Urine None Seen (None Seen); Hyaline Casts Urine 0-2 /LPF (0-2); RBC Urine 0-2 /HPF (0-2); Squamous Epithelial Cell Urine 0-2 /HPF (0-2); UACC Culture Trigger YES; WBC Urine 21-50 /HPF (0-5)
[2023-05-16 14:34] LABS: Amphetamine Screen Urine Not Detected (Not Detect); Barbiturates, Urine Not Detected (Not Detect); Benzodiazepines Screen Urine Not Detected (Not Detect); Cannabinoid Screen Urine Not Detected (Not Detect); Cocaine Screen Urine Not Detected (Not Detect); Fentanyl, urine Not Detected (Not Detect); Opiate Screen Urine Not Detected (Not Detect); Phencyclidine Screen Urine Not Detected (Not Detect)
[2023-05-16 15:00] LABS: MANUAL DIFF FLAG NO
[2023-05-16 15:04] LABS: Basophils Percent Auto 0.2 % (0-2); Eosinophils Percent Auto 0.7 % (0-4); Hematocrit 37.5 % (37.0-47.0); Hemoglobin 13.1 g/dl (12.0-16.0); Imm Gran Abs Auto 0.02 X10*3/uL (0.00-0.03); Imm Gran Pct Auto 0.4 % (0.0-0.4); Lymphocytes Absolute Auto 1.1 X10*3/uL (1.2-4.9); Lymphocytes Percent Auto 23.8 % (20-40); Mean Corpuscular HGB Conc 34.9 g/dl (31.0-35.0); Mean Corpuscular Hemoglobin 35.1 pg (27.0-33.0); Mean Corpuscular Volume 100.5 fL (80.0-98.0); Mean Platelet Volume 9.3 fL (9.4-12.3); Monocytes Absolute Auto 0.2 X10*3/uL (0.1-1.2); Neutrophils Absolute Auto 3.2 x10*3/uL (2.0-8.3); Neutrophils Percent Auto 69.9 % (45-73); Red Blood Count 3.73 X10*6/uL (4.20-5.50); White Blood Count 4.6 X10*3/uL (4.8-10.8)
[2023-05-16 15:05] LABS: Platelet Count 78 X10*3/uL (160-400)
[2023-05-16 15:21] LABS: Acetaminophen LAB < 3 mcg/mL (<30); Salicylate < 5.0 mg/dL (15-30)
[2023-05-16 15:22] LABS: Alanine Aminotransferase 20 U/L (0-31); Albumin Level 4.2 g/dL (3.5-5.0); Alkaline Phosphatase 41 U/L (39-117); Anion Gap 13 (12-20); Aspartate Amino Transferase 23 U/L (5-31); Bilirubin Total 0.7 mg/dL (0.0-1.0); Blood Urea Nitrogen 22 mg/dL (9-16); Calcium 9.5 mg/dL (8.4-10.2); Carbon Dioxide 25 mmol/L (22-29); Chloride 110 mmol/L (96-108); Creatinine Clr Calc Pharmacy 48.5; Estimated Glomerular Filt Rate 48; Ethanol < 10 mg/dL; Glucose Random 106 mg/dL (60-115); Magnesium 2.4 mg/dL (1.6-2.6); Potassium 3.9 mmol/L (3.3-5.1); Sodium 144 mmol/L (135-145)
--- NOTE | 2023-05-16 16:27 | PC.NURSE ---
t/w reached out to supervisor [employer] and asked for med list for client so we may continue medications
--- NOTE | 2023-05-16 17:33 | MHC.EDTECH ---
Patient initially agreed to an EKG but when it was time to place the stickers on she refused.
[2023-05-16 17:34] LABS: COVID-19 Test Negative (Negative); IDNOW Serial# BCCEAD1C
--- NOTE | 2023-05-16 17:43 | PHA.MEDREC ---
Pharmacy Consult ? Medication Reconciliation Pharmacy has completed the medication reconciliation. Received list from [facility] that match claim history except oxybutynin ER. Berkley Ferrari, KeeganD
[2023-05-16 20:12] VITALS: BP 115/76; PULSE 75; RESP 18; TEMP 36.1; O2SAT 96
[2023-05-16 22:00] VITALS: BP 130/74; PULSE 74; RESP 16; TEMP 36.1; O2SAT 98
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
[2023-05-17] MEDS: Levothyroxine Sodium 75 MCG TABLET PO (06:35)
[2023-05-17] MEDS: Omeprazole 20 MG CAPSULE.DR PO (06:57)
[2023-05-17 08:00] VITALS: BP 133/65; PULSE 78; RESP 16; TEMP 36.2; O2SAT 94
[2023-05-17] MEDS: Calcium + Vitamin D 250 MG TABLET 500 MG PO ×2 (08:51→21:27)
[2023-05-17] MEDS: Bictegrav/Emtricit/Tenofov Ala TABLET 1 TAB PO (08:52)
[2023-05-17] MEDS: oxyBUTYnin chloride ER 5 MG TAB.ER.24 PO (08:52)
[2023-05-17] MEDS: Sertraline HCL 100 MG TABLET PO (08:53)
[2023-05-17] MEDS: Multivitamin TABLET 1 TAB PO (08:53)
[2023-05-17] MEDS: Cyanocobalamin (Vitamin B-12) 1,000 MCG TABLET 1000 MCG PO (08:53)
[2023-05-17] MEDS: Folic Acid 1 MG TABLET PO (08:53)
[2023-05-17] MEDS: Cholecalciferol (Vitamin D3) 25 MCG TABLET PO (08:53)
[2023-05-17] MEDS: Psyllium seed 3.7 GM PACKET PO ×2 (08:54→21:27)
[2023-05-17] MEDS: QUEtiapine Fumarate 100 MG TABLET PO ×2 (08:54→21:28)
[2023-05-17 09:21] LABS: Alanine Aminotransferase 19 U/L (0-31); Albumin Level 4.3 g/dL (3.5-5.0); Alkaline Phosphatase 46 U/L (39-117); Anion Gap 11 (12-20); Aspartate Amino Transferase 21 U/L (5-31); Bilirubin Total 0.6 mg/dL (0.0-1.0); Blood Urea Nitrogen 25 mg/dL (9-16); Calcium 9.2 mg/dL (8.4-10.2); Carbon Dioxide 26 mmol/L (22-29); Chloride 110 mmol/L (96-108); Cholesterol 128 mg/dL (<200); Creatinine Clr Calc Pharmacy 50.2; Estimated Glomerular Filt Rate 50; Glucose Fasting 123 mg/dL (60-99); HDL Cholesterol 37 mg/dL (>40); LDL Cholesterol Calculated 75 mg/dL (<100); Potassium 4.5 mmol/L (3.3-5.1); Sodium 142 mmol/L (135-145); Total Protein 7.2 g/dL (6.5-8.0); Triglycerides 83 mg/dL (<150)
--- NOTE | 2023-05-17 09:23 | HO.PSYADMNOT ---
HPI Date of Service: 05/17/23 Chief Complaint: Psychosis Sources of Information: patient interviewed, chart reviewed and crisis/core team assessment reviewed Additional Sources of Information: Jessy ([facility] [place] superrvisor) [phone] HPI Subjective Notes: Nicholas Warning (given and shows understanding) and Conditional Voluntary Narrative: Ms. 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 This conventional underwriter spoke with [facility] [place] water softener service supervisor, Jessy, who reports pt has not had any symptoms of psychosis during the time that she has been residing at the custodial. Jessy reports that change occurred gradually over the past month or so, when pt started to present with paranoia and some grandiose delusions. Pt has some medication changes by her psychiatrist, Dr. Marquise Lorenzo initially lowering seroquel from 100mg po BID to 50mg po BID, but since changes in behavior noted this medication was adjusted back to previous dose. Of note, pt has also been presenting with problems with orientation, not knowing the year or month, which Jessy reports is not her baseline and is an acute-subacute change to her presentation. In the ED- CBC was completed which shows chronic elevation of MVC without low levels of Hgb and Hct, leukopenia and low Plts. CMP shows elevated BUN 25, with normal Cr 1.10, creatinine clearance 50.2. Liver enzymes wnl. UA does show leukocitos, elevated WBC, pending culture- but will start antibiotic ceftin 250mg po BID x 7 days. On the unit, pt presents as cooperative, somewhat guarded but amenable to meet with this conventional underwriter. She reports she owns place where she works, she states being a boss you love people. She reports at people were calling her names and talking about her which she reports upset her. She reports she is fine. She states I only want to go home, and to [place] and [place]. When asked about reason for this trips, she states I can receive treatment there, I have airline tickets. She reports she thinks she is at [facility] [place] Pt informed this is [facility]. She reports she has 7 children, 6 daughters and one son and that she does have grandchildren. Per Jessy, pt does have grandchildren, unclear as to how many children she does have. She reports that she stopped going to work because they had ants, water leaks and rats. She looks at the floor and also reports that here in the hospital this may be a problem. As we are talking pt at times turns to side and talks to someone who is not there. Her attention is poor and needs redirection to stay on topic. She rambles about people at custodial going after her and not letting her see her grandchildren and calling her names. She reports she does feel safe here in the hospital: better here. Per Jessy pt has presented with poor sleep. Pt denies any physical concerns. Past Psychiatric History: Inpatient: none in past 10 years OP: [facility] Dr. Marquise Lorenzo [facility]- Cristina Castillo [phone] [facility] services too. Pt has a guardian- Frankie Domenico awaiting documents regarding guardian information Past medication trials: seroquel, sertraline, trazodone Medical Evaluation Reviewed: Yes [facility] Medical History Hypothyroidism Hx of acute pancreatitis Hx of acute renal failure History of ETOH abuse Hx of herpes genitalis History of diverticulosis Constipation History of intravenous drug abuse Developmental delay, mild COVID-19 vaccine series completed Depression PTSD (post-traumatic stress disorder) Hyperlipidemia Seasonal allergies Hx of hepatitis C HIV (human immunodeficiency virus infection) Nocturia Frequency of micturition Surgical History History of colonoscopy Family History: unknown Social History: Pt has resided at through [facility] [place] for individuals with developmental delays. 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 She has children (unclear how many) and grandchildren that she sees with supervision. Substance History: Hx of opioid and alcohol use but in remission for more than 15 years Trauma History: hx of but unclear details Diagnostics Vital Signs (24Hr): Vital Signs - 24 hr 05/16/23 13:04 05/16/23 14:25 05/16/23 20:12 Temperature 98.3 F 97 F Pulse Rate 85 83 75 Respiratory Rate 18 16 18 Blood Pressure 136/66 115/76 Pulse Oximetry 97 96 Oxygen Delivery Method Room Air Room Air 05/16/23 22:00 Temperature 97 F Pulse Rate 74 Respiratory Rate 16 Blood Pressure 130/74 Pulse Oximetry 98 Oxygen Delivery Method Room Air BMI result Body Mass Index 25.0 Labs 05/16/23 14:52 05/17/23 08:54 Labs: Laboratory Results - last 48 hr 05/16/23 05/16/23 05/16/23 14:22 14:51 14:52 WBC 4.6 L RBC 3.73 L Hgb 13.1 Hct 37.5 MCV 100.5 H MCH 35.1 H MCHC 34.9 RDW 12.0 Plt Count 78 L MPV 9.3 L Immature Gran % (Auto) 0.4 Neut % (Auto) 69.9 Lymph % (Auto) 23.8 Vernon % (Auto) 5.0 Eos % (Auto) 0.7 Baso % (Auto) 0.2 Lymph # (Auto) 1.1 L Vernon # (Auto) 0.2 Eos # (Auto) 0.0 Baso # (Auto) 0.0 Abs Immat Gran (auto) 0.02 Absolute Neuts (auto) 3.2 Absolute Nucleated RBC 0.000 Nucleated RBC % (auto) 0.0 Sodium 144 Potassium 3.9 Chloride 110 H Carbon Dioxide 25 Anion Gap 13 BUN 22 H Creatinine 1.14 Estim Creat Clear Calc 48.5 Estimated GFR 48 Random Glucose 106 Fasting Glucose Calcium 9.5 Magnesium 2.4 Total Bilirubin 0.7 AST 23 ALT 20 Alkaline Phosphatase 41 Total Protein 7.0 Albumin 4.2 Triglycerides Cholesterol LDL Cholesterol, Calc HDL Cholesterol Urine Color Yellow Urine Appearance Clear Urine pH 7.0 Ur Specific Douglass <= 1.005 Urine Protein Negative Urine Glucose (UA) Negative Urine Ketones Negative Urine Blood Negative Urine Nitrite Negative Ur Leukocyte Esterase Large (3+) H Urine RBC 0-2 Urine WBC 21-50 H Ur Squamous Epith Cells 0-2 Urine Bacteria None Seen Hyaline Casts 0-2 Salicylates < 5.0 L Urine Opiates Screen Not Detected Urine Fentanyl Screen Not Detected Acetaminophen < 3 Ur Barbiturates Screen Not Detected Ur Phencyclidine Scrn Not Detected Ur Amphetamines Screen Not Detected U Benzodiazepines Scrn Not Detected Urine Cocaine Screen Not Detected U Marijuana (THC) Screen Not Detected Ethyl Alcohol < 10 COVID-19 (RAFFI) COVID-19 Dinnr Com 05/16/23 05/17/23 17:07 08:54 WBC RBC Hgb Hct MCV MCH MCHC RDW Plt Count MPV Immature Gran % (Auto) Neut % (Auto) Lymph % (Auto) Vernon % (Auto) Eos % (Auto) Baso % (Auto) Lymph # (Auto) Vernon # (Auto) Eos # (Auto) Baso # (Auto) Abs Immat Gran (auto) Absolute Neuts (auto) Absolute Nucleated RBC Nucleated RBC % (auto) Sodium 142 Potassium 4.5 Chloride 110 H Carbon Dioxide 26 Anion Gap 11 L BUN 25 H Creatinine 1.10 Estim Creat Clear Calc 50.2 Estimated GFR 50 Random Glucose Fasting Glucose 123 H Calcium 9.2 Magnesium Total Bilirubin 0.6 AST 21 ALT 19 Alkaline Phosphatase 46 Total Protein 7.2 Albumin 4.3 Triglycerides 83 Cholesterol 128 LDL Cholesterol, Calc 75 HDL Cholesterol 37 L Urine Color Urine Appearance Urine pH Ur Specific Douglass Urine Protein Urine Glucose (UA) Urine Ketones Urine Blood Urine Nitrite Ur Leukocyte Esterase Urine RBC Urine WBC Ur Squamous Epith Cells Urine Bacteria Hyaline Casts Salicylates Urine Opiates Screen Urine Fentanyl Screen Acetaminophen Ur Barbiturates Screen Ur Phencyclidine Scrn Ur Amphetamines Screen U Benzodiazepines Scrn Urine Cocaine Screen U Marijuana (THC) Screen Ethyl Alcohol COVID-19 (RAFFI) Negative COVID-19 Clin Com See Note Meds/Allergies Meds Home Medications Medication Instructions Recorded Confirmed Type alendronate 70 mg tablet 70 mg PO QWEEK 06/24/20 05/16/23 History simvastatin 20 mg tablet 20 mg PO BEDTIME 06/24/20 05/16/23 History trazodone 100 mg tablet 200 mg PO BEDTIME 09/01/20 05/16/23 History acetaminophen 500 mg tablet 500 mg PO Q6H PRN Pain 01/31/21 05/16/23 History bictegravir 50 mg-emtricitabine 1 tab PO DAILY 01/31/21 05/16/23 History 200 mg-tenofovir alafenam 25 mg tablet (Biktarvy) calcium carbonate 600 mg-vitamin 1 tab PO BID 01/31/21 05/16/23 History D3 10 mcg (400 unit) tablet (Calcium 600 + D(3)) cholecalciferol (vitamin D3) 25 25 mcg PO DAILY 01/31/21 05/16/23 History mcg (1,000 unit) capsule (Vitamin D3) cyanocobalamin (vitamin B-12) 1,000 mcg PO DAILY 01/31/21 05/16/23 History 1,000 mcg tablet (Vitamin B-12) folic acid 1 mg tablet 1 mg PO DAILY 01/31/21 05/16/23 History multivit,tx with iron 27 1 tab PO DAILY 01/31/21 05/16/23 History qn-agzydzm-ijszp acid 0.4 mg-minerals tablet sodium chloride 0.65 % nasal spray 1 spray intranasal BID 01/31/21 05/16/23 History aerosol (Saline Nasal) albuterol sulfate 90 mcg/actuation 2 puff inhalation Q4H PRN Wheezing 03/23/21 05/16/23 History aerosol inhaler famciclovir 500 mg tablet 1,000 mg PO DAILY 05/09/23 05/16/23 History loperamide 2 mg capsule 2 mg PO QID PRN Loose Stool 05/09/23 05/16/23 History simethicone 80 mg chewable tablet 80 mg PO BEDTIME 05/09/23 05/16/23 History hydrocortisone 1 % topical cream 1 appl topical BID PRN Rash 05/16/23 05/16/23 History lactase 9,000 unit chewable tablet 18,000 unit PO QIDWMHS PRN EATING 05/16/23 05/16/23 History (Lactaid Fast Act) DIARY quetiapine 100 mg tablet 100 mg PO BID 05/16/23 05/16/23 History sennosides 8.6 mg-docusate sodium 2 tab-cap PO MOWEFR 05/16/23 05/16/23 History 50 mg tablet (Stimulant Laxative Plus) sertraline 100 mg tablet 100 mg PO DAILY 05/16/23 05/16/23 History wheat dextrin 3 gram/4 gram oral 1 packet PO BID 05/16/23 05/16/23 History powder (Benefiber Sugar Free (dextrin)) Allergies Allergies Allergy/AdvReac Type Severity Reaction Status Date / Time abacavir [ABACAVIR] Allergy Severe HIVES Verified 05/09/23 13:34 hydrochlorothiazide Allergy Severe HIVES Verified 05/09/23 13:34 [HYDROCHLOROTHIAZIDE] ibuprofen [From MOTRIN] Allergy Severe HIVES Verified 05/09/23 13:34 Penicillins [PENICILLINS] Allergy Severe HIVES Verified 05/09/23 13:34 tenofovir [From VIREAD] Allergy Severe HIVES Verified 05/09/23 13:34 tomato [TOMATO] Allergy Severe HIVES Verified 05/09/23 13:34 zidovudine [From RETROVIR] Allergy Severe HIVES Verified 05/09/23 13:34 lactose [Lactose] AdvReac Mild DIARRHEA Verified 05/17/23 11:10 disoproxail Allergy Mild Unknown Uncoded 05/09/23 13:34 Mental Status Exam Mental Status Exam Narrative: Appearance: wearing casual clothing, fair hygiene, in NAD Behavior: cooperative, somewhat guarded towards staff at Psychomotor: no agitation or retardation noted. Gait without significant abnormalities. Speech: clear, normal rate/rhythm, spontaneous TP: circumstantial, some loose associations at times TC: wanting to go to [place], and [place], not trusting people at Mood: I'm fine Affect: guarded SI: denies HI: denies VH/AH: talking to someone who is not there Delusions: of owning place where she works, owning , paranoid delusions of people at calling her names Insight/judgment: impaired x 2. Memory/cog: alert, not oriented to place (reported this was [facility] [place] not oriented to month (reports is June or August), confused about situation. Assessment & Plan Assessment & Plan (1) Psychosis: Status: Acute Code(s): F29 - Unspecified psychosis not due to a substance or known physiological condition (2) Cognitive developmental delay: Status: Acute Code(s): F81.9 - Developmental disorder of scholastic skills, unspecified Plan Ms. Caballero is a 62 year-old woman with a complex hx of neuropsychiatric symptoms ranging from developmental delay, remote hx of psychosis (apparently no signs of it for the time she has resided at in 10 years), who started to present increasingly more paranoia with some grandiose ideas. She also presents with impairments in orientation which are not baseline and present as subacute/acute changes. Her thought process is somewhat disorganized with some derailment. Rule out organic causes of changes in behavior and orientation including will check RPR, progression of HIV causing neurological complications, will treatment UTI (although culture is pending), will order head CT. Will continue current doses of antipsychotic seroquel 100mg po BID (awating for galo's order), continue sertraline. Will lower dose of trazodone to 100 mg po qhs. PLAN 1. Admit to M3, CV, 15 minutes checks for safety 2. order rpr r/o neurosyphilis, may consider consult to ID neurological complications of HIV, head CT 3. Start ceftin 250mg po BID x 7 UTI (pending culture but will tx given changes in mentation) 4. Pending court documents for Guardian and galo's- obtain collateral information 5. Aftercare planning. Patient educated on: diagnosis and medication risk/benefits Reason for continued inpatient stay Substantial Risk for: inability to function Statement Statement: I have reviewed the history and physical and performed a pertinent examination on my patient. No changes have occurred unless specified. If the History and Physical was not performed prior to admission, the Hospitalist's service will be consulted for completing the admission physical. Time Spent With Patient Time: Total time managing care of this patient today ____ minutes.
[2023-05-17 11:54] LABS: Vitamin B12 > 2000 pg/mL (200-900)
[2023-05-17] MEDS: cefuroxime axetiL 250 MG TABLET PO (17:03)
--- NOTE | 2023-05-17 17:12 | PC.NURSE ---
Pt was in the shower when she hit the emergency button. Pt became very irritable when staff tried to enter to help her. She appeared to be paranoid and suspicious stating they're all calling me names! Pt then stated her roommate won't let me go in the room but I have rights. I will punch someone in the face if I have to. Pt required redirection but eventually became calm and cooperative.
[2023-05-17 21:20] VITALS: BP 133/60; PULSE 80; RESP 18; TEMP 36.3; O2SAT 96
[2023-05-17] MEDS: traZODone HCL 100 MG TABLET PO (21:27)
[2023-05-17] MEDS: traZODone HCL 50 MG TABLET PO (21:27)
[2023-05-17] MEDS: Simethicone 80 MG TAB.CHEW PO (21:28)
[2023-05-17] MEDS: Atorvastatin Calcium 10 MG TABLET PO (21:28)
[2023-05-17] MEDS: Sennosides/Docusate Sodium TABLET 2 TAB PO (21:29)
[2023-05-18 04:22] LABS: Syphilis Screen Reactive (Nonreactive)
[2023-05-18] MEDS: Levothyroxine Sodium 75 MCG TABLET PO (05:50)
[2023-05-18] MEDS: cefuroxime axetiL 250 MG TABLET PO ×2 (05:50→21:03)
[2023-05-18 06:00] VITALS: BP 121/58; PULSE 80; TEMP 36; O2SAT 97
[2023-05-18] MEDS: Omeprazole 20 MG CAPSULE.DR PO (06:37)
[2023-05-18] MEDS: Multivitamin TABLET 1 TAB PO (08:28)
[2023-05-18] MEDS: oxyBUTYnin chloride ER 5 MG TAB.ER.24 PO (08:28)
[2023-05-18] MEDS: Cholecalciferol (Vitamin D3) 25 MCG TABLET PO (08:28)
[2023-05-18] MEDS: Calcium + Vitamin D 250 MG TABLET 500 MG PO ×2 (08:29→21:03)
[2023-05-18] MEDS: Folic Acid 1 MG TABLET PO (08:29)
[2023-05-18] MEDS: Bictegrav/Emtricit/Tenofov Ala TABLET 1 TAB PO (08:29)
[2023-05-18] MEDS: Psyllium seed 3.7 GM PACKET PO ×2 (08:30→21:04)
[2023-05-18] MEDS: Sertraline HCL 100 MG TABLET PO (08:30)
[2023-05-18] MEDS: Cyanocobalamin (Vitamin B-12) 1,000 MCG TABLET 1000 MCG PO (08:30)
[2023-05-18] MEDS: QUEtiapine Fumarate 100 MG TABLET PO ×2 (08:30→21:03)
--- NOTE | 2023-05-18 18:53 | HO.PSYCHPN ---
Subjective Subjective Date of Service: 05/18/23 Reason For Visit: Psychosis Interim History: i don't understand why you're not sending a sexy woman like me home. irritable, labile, verbally abusive. not happy to hear she will not be discharged. states she was supposed to leave today. per staff, 3-day up . +RIS. was IMed for agitation 2 days ago. agitated and paranoid in the shower yesterday. head CT NEG. RPR POS. Mental Status Exam Mental Status Exam Narrative: Appearance: wearing casual clothing, fair hygiene, in NAD Behavior: not cooperative Psychomotor: agitation of standing and yelling and leaving the interview room Speech: clear, normal rate/rhythm, spontaneous. increased amount and loudness. TP: circumstantial, some loose associations at times TC: demanding to leave, denigrating MD Mood: nor assessed Affect: labile, full range, hyper-intense SI: none expressed HI: none expressed VH/AH: none expressed Insight/judgment: impaired x 2. Diagnostics Vital Signs (24Hr): Vital Signs - 24 hr 05/17/23 21:20 05/18/23 06:00 Temperature 97.3 F 96.8 F Pulse Rate 80 80 Respiratory Rate 18 Blood Pressure 133/60 121/58 L Pulse Oximetry 96 97 Oxygen Delivery Method Room Air Room Air BMI result Body Mass Index 25.0 Labs 05/16/23 14:52 05/17/23 08:54 Labs: Laboratory Results - last 48 hr 05/17/23 05/17/23 05/17/23 08:54 11:01 20:15 Sodium 142 Potassium 4.5 Chloride 110 H Carbon Dioxide 26 Anion Gap 11 L BUN 25 H Creatinine 1.10 Estim Creat Clear Calc 50.2 Estimated GFR 50 Fasting Glucose 123 H Calcium 9.2 Total Bilirubin 0.6 AST 21 ALT 19 Alkaline Phosphatase 46 Total Protein 7.2 Albumin 4.3 Triglycerides 83 Cholesterol 128 LDL Cholesterol, Calc 75 HDL Cholesterol 37 L Vitamin B12 > 2000 H T.pallidum Ab (EIA) Reactive A Imaging Radiology Impressions: ITS Impressions Head CT 05/17/23 17:01 IMPRESSION: Unremarkable exam. Medications Medications Current Medications Acetaminophen (Acetaminophen 325 Mg Tablet) 650 mg PO Q6H PRN PRN Reason: Pain Al Hydroxide/Mg Hydroxide (Magnesium Hydrox/Alum Hydrox 30 Ml Oral.Susp) 30 ml PO Q6H PRN PRN Reason: Heartburn/Nausea Albuterol Sulfate (Albuterol Sulfate 90 Mcg 8 Gm Inhaler) 2 puff INHALE Q4H PRN PRN Reason: Wheezing Atorvastatin Calcium (Atorvastatin Calcium 10 Mg Tablet) 10 mg PO BEDTIME [facility] Last Admin: 05/17/23 21:28 Dose: 10 mg Bictegravir/Emtricitabine/Tenofovir (Bictegrav/Emtricit/Tenofov Ala Tablet) 1 tab PO DAILY [facility] Last Admin: 05/18/23 08:29 Dose: 1 tab Calcium Carbonate/Cholecalciferol (Calcium + Vitamin D 250 Mg Tablet) 500 mg PO BID [facility] Last Admin: 05/18/23 08:29 Dose: 500 mg Cefuroxime Axetil (Cefuroxime Axetil 250 Mg Tablet) 250 mg PO Q12H [facility] Stop: 05/24/23 17:59 Last Admin: 05/18/23 05:50 Dose: 250 mg Cyanocobalamin (Cyanocobalamin (Vitamin B-12) 1,000 Mcg Tablet) 1,000 mcg PO DAILY [facility] Last Admin: 05/18/23 08:30 Dose: 1,000 mcg Folic Acid (Folic Acid 1 Mg Tablet) 1 mg PO DAILY [facility] Last Admin: 05/18/23 08:29 Dose: 1 mg Hydrocortisone (Hydrocortisone 1 % Cream 28.35 Gm Tube) 1 appl TOPICAL BID PRN; Protocol PRN Reason: Rash Hydroxyzine HCl (Hydroxyzine Hcl 25 Mg Tablet) 25 mg PO Q6H PRN PRN Reason: Anxiety Lactase (Lactase Tablet) 2 tab PO QIDWMHS PRN PRN Reason: EATING DIARY Levothyroxine Sodium (Levothyroxine Sodium 75 Mcg Tablet) 75 mcg PO DAILY@0600 [facility] Last Admin: 05/18/23 05:50 Dose: 75 mcg Loperamide HCl (Loperamide Hcl 2 Mg Capsule) 2 mg PO QID PRN PRN Reason: Loose Stool Magnesium Hydroxide (Milk Of Magnesia 30 Ml Oral.Susp) 30 ml PO DAILY PRN PRN Reason: Constipation Multi-Ingred Cream/Lotion/Oil/Oint (Mineral Oil/Petrolatum,White 106 Gm Tube) 1 appl TOPICAL TID [facility]; Protocol Last Admin: 05/18/23 16:52 Dose: Not Given Multivitamins/Vitamin C (Multivitamin Tablet) 1 tab PO DAILY [facility] Last Admin: 05/18/23 08:28 Dose: 1 tab Non-Formulary Medication (Famciclovir) 1,000 mg PO DAILY [facility] Omeprazole (Omeprazole 20 Mg Capsule.Dr) 20 mg PO DAILY@0630 [facility] Last Admin: 05/18/23 06:37 Dose: 20 mg Oxybutynin Chloride (Oxybutynin Chloride Er 5 Mg Tab.Er.24) 5 mg PO DAILY [facility] Last Admin: 05/18/23 08:28 Dose: 5 mg Psyllium Hydrophilic Mucilloid (Psyllium Seed 3.7 Gm Packet) 3.7 gm PO BID [facility] Last Admin: 05/18/23 08:30 Dose: 3.7 gm Quetiapine Fumarate (Quetiapine Fumarate 100 Mg Tablet) 100 mg PO BID [facility] Last Admin: 05/18/23 08:30 Dose: 100 mg Senna/Docusate Sodium (Sennosides/Docusate Sodium Tablet) 2 tab PO MoWeFr@2100 [facility] Last Admin: 05/17/23 21:29 Dose: 2 tab Sertraline HCl (Sertraline Hcl 100 Mg Tablet) 100 mg PO DAILY [facility] Last Admin: 05/18/23 08:30 Dose: 100 mg Simethicone (Simethicone 80 Mg Tab.Chew) 80 mg PO BEDTIME [facility] Last Admin: 05/17/23 21:28 Dose: 80 mg Sodium Chloride (Sodium Chloride 0.65 % Nasal 44 Ml Sprbtl) 1 spray NOSTRIL-B BID [facility] Last Admin: 05/18/23 08:44 Dose: Not Given Trazodone HCl (Trazodone Hcl 50 Mg Tablet) 50 mg PO BEDTIME MRX1 PRN PRN Reason: Insomnia Last Admin: 05/17/23 21:27 Dose: 50 mg Trazodone HCl (Trazodone Hcl 100 Mg Tablet) 100 mg PO BEDTIME [facility] Last Admin: 05/17/23 21:27 Dose: 100 mg Vitamin D (Cholecalciferol (Vitamin D3) 25 Mcg Tablet) 25 mcg PO DAILY [facility] Last Admin: 05/18/23 08:28 Dose: 25 mcg Allergies Allergies Allergy/AdvReac Type Severity Reaction Status Date / Time abacavir [ABACAVIR] Allergy Severe HIVES Verified 05/09/23 13:34 hydrochlorothiazide Allergy Severe HIVES Verified 05/09/23 13:34 [HYDROCHLOROTHIAZIDE] ibuprofen [From MOTRIN] Allergy Severe HIVES Verified 05/09/23 13:34 Penicillins [PENICILLINS] Allergy Severe HIVES Verified 05/09/23 13:34 tenofovir [From VIREAD] Allergy Severe HIVES Verified 05/09/23 13:34 tomato [TOMATO] Allergy Severe HIVES Verified 05/09/23 13:34 zidovudine [From RETROVIR] Allergy Severe HIVES Verified 05/09/23 13:34 lactose [Lactose] AdvReac Mild DIARRHEA Verified 05/17/23 11:10 disoproxail Allergy Mild Unknown Uncoded 05/09/23 13:34 Assessment & Plan Assessment & Plan (1) Psychosis: Status: Acute Code(s): F29 - Unspecified psychosis not due to a substance or known physiological condition (2) Cognitive developmental delay: Status: Acute Code(s): F81.9 - Developmental disorder of scholastic skills, unspecified Plan Ms. Caballero is a 62 year-old woman with a complex hx of neuropsychiatric symptoms ranging from developmental delay, remote hx of psychosis (apparently no signs of it for the time she has resided at in 10 years), who started to present increasingly more paranoia with some grandiose ideas. She also presents with impairments in orientation which are not baseline and present as subacute/acute changes. Her thought process is somewhat disorganized with some derailment. Rule out organic causes of changes in behavior and orientation including will check RPR, progression of HIV causing neurological complications, will treatment UTI (although culture is pending), will order head CT. Will continue current doses of antipsychotic seroquel 100mg po BID (awating for galo's order), continue sertraline. Will lower dose of trazodone to 100 mg po qhs. PLAN 1. Admit to M3, CV, 15 minutes checks for safety 2. order rpr r/o neurosyphilis, may consider consult to ID neurological complications of HIV, head CT 3. Start ceftin 250mg po BID x 7 UTI (pending culture but will tx given changes in mentation) 4. Pending court documents for Guardian and galo's- obtain collateral information 5. Aftercare planning. 05/18: continue current mgmt. pt is manic and may require a proper mood stabilizer pending outcome of medical w/u for subacute mental status changes. Reason for continued inpatient stay Substantial Risk for: inability to function and rapid decompensation Time Spent With Patient Time: Total time managing care of this patient today __25__ minutes.
[2023-05-18 20:17] VITALS: BP 118/59; PULSE 82; RESP 14; TEMP 36.2; O2SAT 97
[2023-05-18] MEDS: Simethicone 80 MG TAB.CHEW PO (21:03)
[2023-05-18] MEDS: traZODone HCL 50 MG TABLET PO (21:03)
[2023-05-18] MEDS: traZODone HCL 100 MG TABLET PO (21:03)
[2023-05-18] MEDS: Albuterol Sulfate 90 MCG 8 GM INHALER 2 PUFF INHALE (21:03)
[2023-05-18] MEDS: Sodium Chloride 0.65 % Nasal 44 ML SPRBTL 1 SPRAY NOSTRIL-B (21:03)
[2023-05-18] MEDS: Mineral Oil/Petrolatum,White 106 GM Tube 1 APPL TOPICAL (21:03)
[2023-05-18] MEDS: Atorvastatin Calcium 10 MG TABLET PO (21:03)
[2023-05-19 06:00] VITALS: BP 135/76; PULSE 84; RESP 20; TEMP 36.1; O2SAT 98
[2023-05-19] MEDS: Levothyroxine Sodium 75 MCG TABLET PO (06:42)
[2023-05-19] MEDS: cefuroxime axetiL 250 MG TABLET PO ×2 (06:42→17:38)
[2023-05-19] MEDS: Omeprazole 20 MG CAPSULE.DR PO (08:34)
[2023-05-19] MEDS: Cyanocobalamin (Vitamin B-12) 1,000 MCG TABLET 1000 MCG PO (08:35)
[2023-05-19] MEDS: Calcium + Vitamin D 250 MG TABLET 500 MG PO ×2 (08:35→20:23)
[2023-05-19] MEDS: Cholecalciferol (Vitamin D3) 25 MCG TABLET PO (08:35)
[2023-05-19] MEDS: Multivitamin TABLET 1 TAB PO (08:35)
[2023-05-19] MEDS: Bictegrav/Emtricit/Tenofov Ala TABLET 1 TAB PO (08:35)
[2023-05-19] MEDS: Folic Acid 1 MG TABLET PO (08:35)
[2023-05-19] MEDS: QUEtiapine Fumarate 100 MG TABLET PO (08:35)
[2023-05-19] MEDS: oxyBUTYnin chloride ER 5 MG TAB.ER.24 PO (08:35)
[2023-05-19] MEDS: Sertraline HCL 100 MG TABLET PO (08:35)
[2023-05-19] MEDS: Psyllium seed 3.7 GM PACKET PO ×2 (08:39→20:23)
[2023-05-19] MEDS: Mineral Oil/Petrolatum,White 106 GM Tube 1 APPL TOPICAL ×3 (08:41→20:24)
[2023-05-19] MEDS: Sodium Chloride 0.65 % Nasal 44 ML SPRBTL 1 SPRAY NOSTRIL-B ×2 (08:41→20:24)
[2023-05-19] MEDS: QUEtiapine Fumarate 200 MG TABLET PO ×2 (14:28→20:23)
[2023-05-19 20:20] VITALS: BP 109/56; PULSE 81; TEMP 36.7; O2SAT 99
[2023-05-19] MEDS: Simethicone 80 MG TAB.CHEW PO (20:23)
[2023-05-19] MEDS: traZODone HCL 100 MG TABLET PO (20:23)
[2023-05-19] MEDS: Atorvastatin Calcium 10 MG TABLET PO (20:23)
--- NOTE | 2023-05-19 20:30 | HO.PSYCHPN ---
Subjective Subjective Date of Service: 05/19/23 Reason For Visit: Psychosis Interim History: reports she has had previous positive syphilis screen and was treated. upset when the issue of positive rpr raised today. irritable, labile, verbally abusive. per staff, believes this assembly instructions writer told her she needs to give pictures of her grandchildren to staff antisubmarine officer. slept in sensory room. showered. no recent TSH level and high B12 level. Mental Status Exam Mental Status Exam Narrative: Appearance: wearing casual clothing, fair hygiene, in NAD Behavior: not cooperative Psychomotor: agitation of standing and yelling and leaving the interview room Speech: clear, normal rate/rhythm, spontaneous. increased amount and loudness. TP: circumstantial, some loose associations at times TC: demanding to leave, denigrating MD Mood: not assessed Affect: labile, full range, hyper-intense SI: none expressed HI: none expressed VH/AH: none expressed Insight/judgment: impaired x 2. Diagnostics Vital Signs (24Hr): Vital Signs - 24 hr 05/19/23 06:00 05/19/23 20:20 Temperature 96.9 F 98.0 F Pulse Rate 84 81 Respiratory Rate 20 Blood Pressure 135/76 109/56 L Pulse Oximetry 98 99 Oxygen Delivery Method Room Air Room Air BMI result Body Mass Index 25.0 Labs 05/16/23 14:52 05/17/23 08:54 Labs: Laboratory Results - last 48 hr 05/17/23 20:15 T.pallidum Ab (EIA) Reactive A Imaging Radiology Impressions: ITS Impressions Head CT 05/17/23 17:01 IMPRESSION: Unremarkable exam. Medications Medications Current Medications Acetaminophen (Acetaminophen 325 Mg Tablet) 650 mg PO Q6H PRN PRN Reason: Pain Al Hydroxide/Mg Hydroxide (Magnesium Hydrox/Alum Hydrox 30 Ml Oral.Susp) 30 ml PO Q6H PRN PRN Reason: Heartburn/Nausea Albuterol Sulfate (Albuterol Sulfate 90 Mcg 8 Gm Inhaler) 2 puff INHALE Q4H PRN PRN Reason: Wheezing Last Admin: 05/18/23 21:03 Dose: 2 puff Atorvastatin Calcium (Atorvastatin Calcium 10 Mg Tablet) 10 mg PO BEDTIME [facility]ENATO Last Admin: 05/19/23 20:23 Dose: 10 mg Bictegravir/Emtricitabine/Tenofovir (Bictegrav/Emtricit/Tenofov Ala Tablet) 1 tab PO DAILY [facility] Last Admin: 05/19/23 08:35 Dose: 1 tab Calcium Carbonate/Cholecalciferol (Calcium + Vitamin D 250 Mg Tablet) 500 mg PO BID [facility] Last Admin: 05/19/23 20:23 Dose: 500 mg Cefuroxime Axetil (Cefuroxime Axetil 250 Mg Tablet) 250 mg PO Q12H [facility] Stop: 05/24/23 17:59 Last Admin: 05/19/23 17:38 Dose: 250 mg Cyanocobalamin (Cyanocobalamin (Vitamin B-12) 1,000 Mcg Tablet) 1,000 mcg PO DAILY [facility] Last Admin: 05/19/23 08:35 Dose: 1,000 mcg Folic Acid (Folic Acid 1 Mg Tablet) 1 mg PO DAILY [facility] Last Admin: 05/19/23 08:35 Dose: 1 mg Hydrocortisone (Hydrocortisone 1 % Cream 28.35 Gm Tube) 1 appl TOPICAL BID PRN; Protocol PRN Reason: Rash Hydroxyzine HCl (Hydroxyzine Hcl 25 Mg Tablet) 25 mg PO Q6H PRN PRN Reason: Anxiety Lactase (Lactase Tablet) 2 tab PO QIDWMHS PRN PRN Reason: EATING DIARY Levothyroxine Sodium (Levothyroxine Sodium 75 Mcg Tablet) 75 mcg PO DAILY@0600 [facility] Last Admin: 05/19/23 06:42 Dose: 75 mcg Loperamide HCl (Loperamide Hcl 2 Mg Capsule) 2 mg PO QID PRN PRN Reason: Loose Stool Magnesium Hydroxide (Milk Of Magnesia 30 Ml Oral.Susp) 30 ml PO DAILY PRN PRN Reason: Constipation Multi-Ingred Cream/Lotion/Oil/Oint (Mineral Oil/Petrolatum,White 106 Gm Tube) 1 appl TOPICAL TID [facility]; Protocol Last Admin: 05/19/23 20:24 Dose: 1 appl Multivitamins/Vitamin C (Multivitamin Tablet) 1 tab PO DAILY [facility] Last Admin: 05/19/23 08:35 Dose: 1 tab Non-Formulary Medication (Famciclovir) 1,000 mg PO DAILY [facility] Omeprazole (Omeprazole 20 Mg Capsule.Dr) 20 mg PO DAILY@0630 [facility] Last Admin: 05/19/23 08:34 Dose: 20 mg Oxybutynin Chloride (Oxybutynin Chloride Er 5 Mg Tab.Er.24) 5 mg PO DAILY [facility] Last Admin: 05/19/23 08:35 Dose: 5 mg Psyllium Hydrophilic Mucilloid (Psyllium Seed 3.7 Gm Packet) 3.7 gm PO BID [facility] Last Admin: 05/19/23 20:23 Dose: 3.7 gm Quetiapine Fumarate (Quetiapine Fumarate 200 Mg Tablet) 200 mg PO TID [facility] Last Admin: 05/19/23 20:23 Dose: 200 mg Senna/Docusate Sodium (Sennosides/Docusate Sodium Tablet) 2 tab PO MoWeFr@2100 [facility] Last Admin: 05/17/23 21:29 Dose: 2 tab Sertraline HCl (Sertraline Hcl 100 Mg Tablet) 100 mg PO DAILY [facility] Last Admin: 05/19/23 08:35 Dose: 100 mg Simethicone (Simethicone 80 Mg Tab.Chew) 80 mg PO BEDTIME [facility] Last Admin: 05/19/23 20:23 Dose: 80 mg Sodium Chloride (Sodium Chloride 0.65 % Nasal 44 Ml Sprbtl) 1 spray NOSTRIL-B BID [facility] Last Admin: 05/19/23 20:24 Dose: 1 spray Trazodone HCl (Trazodone Hcl 50 Mg Tablet) 50 mg PO BEDTIME MRX1 PRN PRN Reason: Insomnia Last Admin: 05/18/23 21:03 Dose: 50 mg Trazodone HCl (Trazodone Hcl 100 Mg Tablet) 100 mg PO BEDTIME [facility] Last Admin: 05/19/23 20:23 Dose: 100 mg Vitamin D (Cholecalciferol (Vitamin D3) 25 Mcg Tablet) 25 mcg PO DAILY [facility] Last Admin: 05/19/23 08:35 Dose: 25 mcg Allergies Allergies Allergy/AdvReac Type Severity Reaction Status Date / Time abacavir [ABACAVIR] Allergy Severe HIVES Verified 05/09/23 13:34 hydrochlorothiazide Allergy Severe HIVES Verified 05/09/23 13:34 [HYDROCHLOROTHIAZIDE] ibuprofen [From MOTRIN] Allergy Severe HIVES Verified 05/09/23 13:34 Penicillins [PENICILLINS] Allergy Severe HIVES Verified 05/09/23 13:34 tenofovir [From VIREAD] Allergy Severe HIVES Verified 05/09/23 13:34 tomato [TOMATO] Allergy Severe HIVES Verified 05/09/23 13:34 zidovudine [From RETROVIR] Allergy Severe HIVES Verified 05/09/23 13:34 lactose [Lactose] AdvReac Mild DIARRHEA Verified 05/17/23 11:10 disoproxail Allergy Mild Unknown Uncoded 05/09/23 13:34 Assessment & Plan Assessment & Plan (1) Psychosis: Status: Acute Code(s): F29 - Unspecified psychosis not due to a substance or known physiological condition (2) Cognitive developmental delay: Status: Acute Code(s): F81.9 - Developmental disorder of scholastic skills, unspecified Plan Ms. Caballero is a 62 year-old woman with a complex hx of neuropsychiatric symptoms ranging from developmental delay, remote hx of psychosis (apparently no signs of it for the time she has resided at in 10 years), who started to present increasingly more paranoia with some grandiose ideas. She also presents with impairments in orientation which are not baseline and present as subacute/acute changes. Her thought process is somewhat disorganized with some derailment. Rule out organic causes of changes in behavior and orientation including will check RPR, progression of HIV causing neurological complications, will treatment UTI (although culture is pending), will order head CT. Will continue current doses of antipsychotic seroquel 100mg po BID (awating for galo's order), continue sertraline. Will lower dose of trazodone to 100 mg po qhs. PLAN 1. Admit to M3, CV, 15 minutes checks for safety 2. order rpr r/o neurosyphilis, may consider consult to ID neurological complications of HIV, head CT 3. Start ceftin 250mg po BID x 7 UTI (pending culture but will tx given changes in mentation) 4. Pending court documents for Guardian and galo's- obtain collateral information 5. Aftercare planning. 05/18: continue current mgmt. pt is manic and may require a proper mood stabilizer pending outcome of medical w/u for subacute mental status changes. 05/19: no change in presentation from yesterday. no recent TSH result. B12 level elevated. syphilis labs pending. needs mood stabilizer. ID consult as pt's presentation is reportedly a substantial change from her long-held baseline; assess potential role of HIV in presentation. Reason for continued inpatient stay Substantial Risk for: harm to others and inability to function Time Spent With Patient Time: Total time managing care of this patient today ____ minutes.
[2023-05-20] MEDS: Levothyroxine Sodium 75 MCG TABLET PO (07:41)
[2023-05-20] MEDS: cefuroxime axetiL 250 MG TABLET PO ×2 (07:41→17:22)
[2023-05-20 08:00] VITALS: BP 143/68; PULSE 88; RESP 14; TEMP 36.3; O2SAT 99
[2023-05-20] MEDS: Psyllium seed 3.7 GM PACKET PO ×2 (08:16→20:52)
[2023-05-20] MEDS: Multivitamin TABLET 1 TAB PO (08:17)
[2023-05-20] MEDS: oxyBUTYnin chloride ER 5 MG TAB.ER.24 PO (08:17)
[2023-05-20] MEDS: Folic Acid 1 MG TABLET PO (08:17)
[2023-05-20] MEDS: QUEtiapine Fumarate 200 MG TABLET PO ×3 (08:18→20:52)
[2023-05-20] MEDS: Calcium + Vitamin D 250 MG TABLET 500 MG PO ×2 (08:18→20:52)
[2023-05-20] MEDS: Cholecalciferol (Vitamin D3) 25 MCG TABLET PO (08:18)
[2023-05-20] MEDS: Bictegrav/Emtricit/Tenofov Ala TABLET 1 TAB PO (08:18)
[2023-05-20] MEDS: Omeprazole 20 MG CAPSULE.DR PO (08:18)
--- NOTE | 2023-05-20 09:22 | HO.PSYCHPN ---
Subjective Subjective Date of Service: 05/20/23 Reason For Visit: Psychosis Subjective Notes: Conditional Voluntary and 3 Day (up 05/22/2023) Interim History: Pt reports she is fine. She reports she wants to go back home. She reports she continues to hear voices of people/staff from [facility] even though she can't see them. She reports they tell her come downstairs or bitch. She reports feeling frustrated about what they are doing to me referring to them talking to her ear when from afar. She reports she wants to see her grandchildren. She also reports she should be in [place], although less persistent about this. Per nursing, pt had several episodes of being labile, and explosive requiring PRN medications. From Saturday- although continues to present with auditory hallucinations, her thought process is slightly more organize. She was able to tell this policy writer typist that she is at [facility]. She states it is 2002. When asked about the month she states . She then stated N.O.V. When this policy writer typist states, do you mean May?, She states yes, . ID will see patient. Medication Compliance: Yes Review of Systems Review of Systems No SOB No chest pain Pt denies pain Pt denies GI symptoms including constipation or diarrhea. Yes all other systems are reviewed and are negative Diagnostics Vital Signs (24Hr): Vital Signs - 24 hr 05/19/23 20:20 Temperature 98.0 F Pulse Rate 81 Blood Pressure 109/56 L Pulse Oximetry 99 Oxygen Delivery Method Room Air BMI result Body Mass Index 25.0 Labs 05/16/23 14:52 05/17/23 08:54 Imaging Radiology Impressions: ITS Impressions Head CT 05/17/23 17:01 IMPRESSION: Unremarkable exam. Medications Medications Current Medications Acetaminophen (Acetaminophen 325 Mg Tablet) 650 mg PO Q6H PRN PRN Reason: Pain Al Hydroxide/Mg Hydroxide (Magnesium Hydrox/Alum Hydrox 30 Ml Oral.Susp) 30 ml PO Q6H PRN PRN Reason: Heartburn/Nausea Albuterol Sulfate (Albuterol Sulfate 90 Mcg 8 Gm Inhaler) 2 puff INHALE Q4H PRN PRN Reason: Wheezing Last Admin: 05/18/23 21:03 Dose: 2 puff Atorvastatin Calcium (Atorvastatin Calcium 10 Mg Tablet) 10 mg PO BEDTIME [facility] Last Admin: 05/19/23 20:23 Dose: 10 mg Bictegravir/Emtricitabine/Tenofovir (Bictegrav/Emtricit/Tenofov Ala Tablet) 1 tab PO DAILY [facility] Last Admin: 05/20/23 08:18 Dose: 1 tab Calcium Carbonate/Cholecalciferol (Calcium + Vitamin D 250 Mg Tablet) 500 mg PO BID [facility] Last Admin: 05/20/23 08:18 Dose: 500 mg Cefuroxime Axetil (Cefuroxime Axetil 250 Mg Tablet) 250 mg PO Q12H [facility] Stop: 05/24/23 17:59 Last Admin: 05/20/23 07:41 Dose: 250 mg Cyanocobalamin (Cyanocobalamin (Vitamin B-12) 1,000 Mcg Tablet) 1,000 mcg PO DAILY [facility] Last Admin: 05/20/23 08:19 Dose: Not Given Folic Acid (Folic Acid 1 Mg Tablet) 1 mg PO DAILY [facility] Last Admin: 05/20/23 08:17 Dose: 1 mg Hydrocortisone (Hydrocortisone 1 % Cream 28.35 Gm Tube) 1 appl TOPICAL BID PRN; Protocol PRN Reason: Rash Hydroxyzine HCl (Hydroxyzine Hcl 25 Mg Tablet) 25 mg PO Q6H PRN PRN Reason: Anxiety Lactase (Lactase Tablet) 2 tab PO QIDWMHS PRN PRN Reason: EATING DIARY Levothyroxine Sodium (Levothyroxine Sodium 75 Mcg Tablet) 75 mcg PO DAILY@0600 [facility] Last Admin: 05/20/23 07:41 Dose: 75 mcg Loperamide HCl (Loperamide Hcl 2 Mg Capsule) 2 mg PO QID PRN PRN Reason: Loose Stool Magnesium Hydroxide (Milk Of Magnesia 30 Ml Oral.Susp) 30 ml PO DAILY PRN PRN Reason: Constipation Multi-Ingred Cream/Lotion/Oil/Oint (Mineral Oil/Petrolatum,White 106 Gm Tube) 1 appl TOPICAL TID [facility]; Protocol Last Admin: 05/20/23 08:21 Dose: Not Given Multivitamins/Vitamin C (Multivitamin Tablet) 1 tab PO DAILY [facility] Last Admin: 05/20/23 08:17 Dose: 1 tab Non-Formulary Medication (Famciclovir) 1,000 mg PO DAILY [facility] Omeprazole (Omeprazole 20 Mg Capsule.Dr) 20 mg PO DAILY@0630 [facility] Last Admin: 05/20/23 08:18 Dose: 20 mg Oxybutynin Chloride (Oxybutynin Chloride Er 5 Mg Tab.Er.24) 5 mg PO DAILY [facility] Last Admin: 05/20/23 08:17 Dose: 5 mg Psyllium Hydrophilic Mucilloid (Psyllium Seed 3.7 Gm Packet) 3.7 gm PO BID [facility] Last Admin: 05/20/23 08:16 Dose: 3.7 gm Quetiapine Fumarate (Quetiapine Fumarate 200 Mg Tablet) 200 mg PO TID [facility] Last Admin: 05/20/23 08:18 Dose: 200 mg Senna/Docusate Sodium (Sennosides/Docusate Sodium Tablet) 2 tab PO MoWeFr@2100 [facility] Last Admin: 05/17/23 21:29 Dose: 2 tab Sertraline HCl (Sertraline Hcl 100 Mg Tablet) 100 mg PO DAILY [facility] Last Admin: 05/19/23 08:35 Dose: 100 mg Simethicone (Simethicone 80 Mg Tab.Chew) 80 mg PO BEDTIME [facility] Last Admin: 05/19/23 20:23 Dose: 80 mg Sodium Chloride (Sodium Chloride 0.65 % Nasal 44 Ml Sprbtl) 1 spray NOSTRIL-B BID [facility] Last Admin: 05/20/23 08:21 Dose: Not Given Trazodone HCl (Trazodone Hcl 50 Mg Tablet) 50 mg PO BEDTIME MRX1 PRN PRN Reason: Insomnia Last Admin: 05/18/23 21:03 Dose: 50 mg Trazodone HCl (Trazodone Hcl 100 Mg Tablet) 100 mg PO BEDTIME [facility] Last Admin: 05/19/23 20:23 Dose: 100 mg Vitamin D (Cholecalciferol (Vitamin D3) 25 Mcg Tablet) 25 mcg PO DAILY [facility] Last Admin: 05/20/23 08:18 Dose: 25 mcg Allergies Allergies Allergy/AdvReac Type Severity Reaction Status Date / Time abacavir [ABACAVIR] Allergy Severe HIVES Verified 05/09/23 13:34 hydrochlorothiazide Allergy Severe HIVES Verified 05/09/23 13:34 [HYDROCHLOROTHIAZIDE] ibuprofen [From MOTRIN] Allergy Severe HIVES Verified 05/09/23 13:34 Penicillins [PENICILLINS] Allergy Severe HIVES Verified 05/09/23 13:34 tenofovir [From VIREAD] Allergy Severe HIVES Verified 05/09/23 13:34 tomato [TOMATO] Allergy Severe HIVES Verified 05/09/23 13:34 zidovudine [From RETROVIR] Allergy Severe HIVES Verified 05/09/23 13:34 lactose [Lactose] AdvReac Mild DIARRHEA Verified 05/17/23 11:10 disoproxail Allergy Mild Unknown Uncoded 05/09/23 13:34 Assessment & Plan Assessment & Plan (1) Psychosis: Status: Acute Code(s): F29 - Unspecified psychosis not due to a substance or known physiological condition (2) Cognitive developmental delay: Status: Acute Code(s): F81.9 - Developmental disorder of scholastic skills, unspecified Plan Ms. Caballero is a 62 year-old woman with a complex hx of neuropsychiatric symptoms ranging from developmental delay, remote hx of psychosis (apparently no signs of it for the time she has resided at in 10 years), who started to present increasingly more paranoia with some grandiose ideas. She also presents with impairments in orientation which are not baseline and present as subacute/acute changes. Her thought process is somewhat disorganized with some derailment. Rule out organic causes of changes in behavior and orientation including will check RPR, progression of HIV causing neurological complications, will treatment UTI (although culture is pending), will order head CT. Will continue current doses of antipsychotic seroquel 100mg po BID (awating for galo's order), continue sertraline. Will lower dose of trazodone to 100 mg po qhs. PLAN 1. Admit to M3, CV, 15 minutes checks for safety 2. order rpr r/o neurosyphilis, may consider consult to ID neurological complications of HIV, head CT 3. Start ceftin 250mg po BID x 7 UTI (pending culture but will tx given changes in mentation) 4. Pending court documents for Guardian and galo's- obtain collateral information 5. Aftercare planning. 05/18: continue current mgmt. pt is manic and may require a proper mood stabilizer pending outcome of medical w/u for subacute mental status changes. 05/19: no change in presentation from yesterday. no recent TSH result. B12 level elevated. syphilis labs pending. needs mood stabilizer. ID consult as pt's presentation is reportedly a substantial change from her long-held baseline; assess potential role of HIV in presentation. 05/20 pending ID consult. Continue current medications. Will order TSH. Reason for continued inpatient stay Substantial Risk for: harm to others and inability to function Time Spent With Patient Time: Total time managing care of this patient today ____ minutes.
[2023-05-20] MEDS: Mineral Oil/Petrolatum,White 106 GM Tube 1 APPL TOPICAL ×2 (09:36→20:52)
[2023-05-20 13:23] LABS: TSH reflex Free T4 2.19 uIU/mL (0.32-4.0)
[2023-05-20] MEDS: Acetaminophen 325 MG TABLET 650 MG PO (14:17)
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
[2023-05-20] MEDS: Benztropine Mesylate 1 MG TABLET PO (18:05)
[2023-05-20] MEDS: HaloperidoL 5 MG TABLET PO (18:05)
[2023-05-20] MEDS: LORazepam 1 MG TABLET 2 MG PO (18:05)
[2023-05-20 20:46] VITALS: BP 106/58; PULSE 91; TEMP 36.4; O2SAT 95
[2023-05-20] MEDS: Sodium Chloride 0.65 % Nasal 44 ML SPRBTL 1 SPRAY NOSTRIL-B (20:51)
[2023-05-20] MEDS: Sennosides/Docusate Sodium TABLET 2 TAB PO (20:52)
[2023-05-20] MEDS: Simethicone 80 MG TAB.CHEW PO (20:52)
[2023-05-20] MEDS: Atorvastatin Calcium 10 MG TABLET PO (20:52)
[2023-05-20] MEDS: traZODone HCL 100 MG TABLET PO (20:52)
--- NOTE | 2023-05-21 | PM.EVENT ---
Event Note Date of Service: 05/20/23 Event Note: Called approx 1730 05/20 ptwas unstable insisting on going home threatening pt was able to respond to verbal redirection was upset after not being discharged earlier today seemed to respong to po medication Time Spent With Patient Time: 30Total time managing care of this patient today ____ minutes.
[2023-05-21] MEDS: Levothyroxine Sodium 75 MCG TABLET PO (06:44)
[2023-05-21] MEDS: cefuroxime axetiL 250 MG TABLET PO ×2 (06:44→17:30)
[2023-05-21 08:05] VITALS: BP 129/73; PULSE 76; RESP 18; TEMP 36.2; O2SAT 94
[2023-05-21] MEDS: oxyBUTYnin chloride ER 5 MG TAB.ER.24 PO (09:35)
[2023-05-21] MEDS: Mineral Oil/Petrolatum,White 106 GM Tube 1 APPL TOPICAL (09:35)
[2023-05-21] MEDS: Sodium Chloride 0.65 % Nasal 44 ML SPRBTL 1 SPRAY NOSTRIL-B (09:35)
[2023-05-21] MEDS: Psyllium seed 3.7 GM PACKET PO (09:35)
[2023-05-21] MEDS: Bictegrav/Emtricit/Tenofov Ala TABLET 1 TAB PO (09:36)
[2023-05-21] MEDS: Multivitamin TABLET 1 TAB PO (09:36)
[2023-05-21] MEDS: Calcium + Vitamin D 250 MG TABLET 500 MG PO ×2 (09:36→21:53)
[2023-05-21] MEDS: QUEtiapine Fumarate 200 MG TABLET PO ×3 (09:36→21:52)
[2023-05-21] MEDS: Folic Acid 1 MG TABLET PO (09:36)
[2023-05-21] MEDS: Omeprazole 20 MG CAPSULE.DR PO (09:36)
[2023-05-21] MEDS: Cholecalciferol (Vitamin D3) 25 MCG TABLET PO (09:36)
[2023-05-21 10:09] LABS: Absolute CD3 Count 1283 cells/uL (840-3060); Absolute CD4 Count 756 cells/uL (490-1740); Absolute CD8 Count 542 cells/uL (180-1170); Absolute Lymphocytes 1504 cells/uL (850-3900); CD4 CD8 Ratio 1.39 (0.86-5.00); Percent CD3 Cells 85 % (57-85); Percent CD4 Cells 50 % (30-61); Percent CD8 Cells 36 % (12-42)
--- NOTE | 2023-05-21 10:31 | P.PNPSI_ITS ---
Subjective Subjective Date of Service: 05/21/23 Reason For Visit: Psychosis Subjective Notes: 3 Day Interim History: Pt expressed frustration about being here in the hospital. She denies hearing voices but explains that staff from senior living are saying things to her hear, like I have a phone in my ear She voices telling her she should see her family, calling her names. She reports she also hears voice of her son. She had episode of increase agitation, not able to be redirected but did agree to take oral haldol and ativan with good effect. She denies SI/HI. No insight into symptoms and need for treatment although she is taking most medications as prescribed. She continues to present very paranoid towards staff at , which is not her usual. Medication Compliance: Intermittent Side effects from medications: Yes Attending Groups: Intermittent Review of Systems Review of Systems No SOB No chest pain Pt denies pain Pt denies GI symptoms including constipation or diarrhea. Yes all other systems are reviewed and are negative Mental Status Exam Mental Status Exam Narrative: Appearance: wearing casual clothing, fair hygiene, in NAD Behavior: not cooperative Psychomotor: agitation of standing and yelling and leaving the interview room Speech: clear, normal rate/rhythm, spontaneous. increased amount and loudness. TP: circumstantial, some loose associations at times TC: demanding to leave, Mood: I'm fine Affect: labile, full range, hyper-intense SI: none expressed HI: none expressed VH/AH: hearing voices of staff from senior living, her son, although when asked directly denies hearing voices. Insight/judgment: impaired x 2. Memory/cog: alert, confused about month, not to situation. She is able to say that she is at [facility] and that this is the hospital. Diagnostics Vital Signs (24Hr): Vital Signs - 24 hr 05/20/23 20:46 05/21/23 08:05 Temperature 97.5 F 97.2 F Pulse Rate 91 76 Respiratory Rate 18 Blood Pressure 106/58 L 129/73 Pulse Oximetry 95 94 Oxygen Delivery Method Room Air Room Air BMI result Body Mass Index 25.0 Labs 05/16/23 14:52 05/17/23 08:54 Labs: Laboratory Results - last 48 hr 05/20/23 05/20/23 12:31 16:15 TSH 2.19 Total Lymphocytes 1504 % CD3 Cells 85 Absolute CD3 Count 1283 % CD4 Cells 50 Absolute CD4 Count 756 CD4/CD8 Ratio 1.39 % CD8 Cells 36 Absolute CD8 Count 542 Imaging Radiology Impressions: ITS Impressions Head CT 05/17/23 17:01 IMPRESSION: Unremarkable exam. Medications Medications Current Medications Acetaminophen (Acetaminophen 325 Mg Tablet) 650 mg PO Q6H PRN PRN Reason: Pain Last Admin: 05/20/23 14:17 Dose: 650 mg Al Hydroxide/Mg Hydroxide (Magnesium Hydrox/Alum Hydrox 30 Ml Oral.Susp) 30 ml PO Q6H PRN PRN Reason: Heartburn/Nausea Albuterol Sulfate (Albuterol Sulfate 90 Mcg 8 Gm Inhaler) 2 puff INHALE Q4H PRN PRN Reason: Wheezing Last Admin: 05/18/23 21:03 Dose: 2 puff Atorvastatin Calcium (Atorvastatin Calcium 10 Mg Tablet) 10 mg PO BEDTIME [facility] Last Admin: 05/20/23 20:52 Dose: 10 mg Bictegravir/Emtricitabine/Tenofovir (Bictegrav/Emtricit/Tenofov Ala Tablet) 1 tab PO DAILY [facility] Last Admin: 05/21/23 09:36 Dose: 1 tab Calcium Carbonate/Cholecalciferol (Calcium + Vitamin D 250 Mg Tablet) 500 mg PO BID [facility] Last Admin: 05/21/23 09:36 Dose: 500 mg Cefuroxime Axetil (Cefuroxime Axetil 250 Mg Tablet) 250 mg PO Q12H [facility] Stop: 05/24/23 17:59 Last Admin: 05/21/23 06:44 Dose: 250 mg Folic Acid (Folic Acid 1 Mg Tablet) 1 mg PO DAILY [facility] Last Admin: 05/21/23 09:36 Dose: 1 mg Hydrocortisone (Hydrocortisone 1 % Cream 28.35 Gm Tube) 1 appl TOPICAL BID PRN; Protocol PRN Reason: Rash Hydroxyzine HCl (Hydroxyzine Hcl 25 Mg Tablet) 25 mg PO Q6H PRN PRN Reason: Anxiety Lactase (Lactase Tablet) 2 tab PO QIDWMHS PRN PRN Reason: EATING DIARY Levothyroxine Sodium (Levothyroxine Sodium 75 Mcg Tablet) 75 mcg PO DAILY@0600 [facility] Last Admin: 05/21/23 06:44 Dose: 75 mcg Loperamide HCl (Loperamide Hcl 2 Mg Capsule) 2 mg PO QID PRN PRN Reason: Loose Stool Magnesium Hydroxide (Milk Of Magnesia 30 Ml Oral.Susp) 30 ml PO DAILY PRN PRN Reason: Constipation Multi-Ingred Cream/Lotion/Oil/Oint (Mineral Oil/Petrolatum,White 106 Gm Tube) 1 appl TOPICAL TID [facility]; Protocol Last Admin: 05/21/23 09:35 Dose: 1 appl Multivitamins/Vitamin C (Multivitamin Tablet) 1 tab PO DAILY [facility] Last Admin: 05/21/23 09:36 Dose: 1 tab Non-Formulary Medication (Famciclovir) 1,000 mg PO DAILY [facility] Omeprazole (Omeprazole 20 Mg Capsule.Dr) 20 mg PO DAILY@0630 [facility] Last Admin: 05/21/23 09:36 Dose: 20 mg Oxybutynin Chloride (Oxybutynin Chloride Er 5 Mg Tab.Er.24) 5 mg PO DAILY [facility] Last Admin: 05/21/23 09:35 Dose: 5 mg Psyllium Hydrophilic Mucilloid (Psyllium Seed 3.7 Gm Packet) 3.7 gm PO BID [facility] Last Admin: 05/21/23 09:35 Dose: 3.7 gm Quetiapine Fumarate (Quetiapine Fumarate 200 Mg Tablet) 200 mg PO TID [facility] Last Admin: 05/21/23 09:36 Dose: 200 mg Senna/Docusate Sodium (Sennosides/Docusate Sodium Tablet) 2 tab PO MoWeFr@2100 [facility] Last Admin: 05/20/23 20:52 Dose: 2 tab Sertraline HCl (Sertraline Hcl 100 Mg Tablet) 100 mg PO DAILY [facility] Last Admin: 05/19/23 08:35 Dose: 100 mg Simethicone (Simethicone 80 Mg Tab.Chew) 80 mg PO BEDTIME [facility] Last Admin: 05/20/23 20:52 Dose: 80 mg Sodium Chloride (Sodium Chloride 0.65 % Nasal 44 Ml Sprbtl) 1 spray NOSTRIL-B BID [facility] Last Admin: 05/21/23 09:35 Dose: 1 spray Trazodone HCl (Trazodone Hcl 50 Mg Tablet) 50 mg PO BEDTIME MRX1 PRN PRN Reason: Insomnia Last Admin: 05/18/23 21:03 Dose: 50 mg Trazodone HCl (Trazodone Hcl 100 Mg Tablet) 100 mg PO BEDTIME [facility] Last Admin: 05/20/23 20:52 Dose: 100 mg Vitamin D (Cholecalciferol (Vitamin D3) 25 Mcg Tablet) 25 mcg PO DAILY [facility] Last Admin: 05/21/23 09:36 Dose: 25 mcg Allergies Allergies Allergy/AdvReac Type Severity Reaction Status Date / Time abacavir [ABACAVIR] Allergy Severe HIVES Verified 05/09/23 13:34 hydrochlorothiazide Allergy Severe HIVES Verified 05/09/23 13:34 [HYDROCHLOROTHIAZIDE] ibuprofen [From MOTRIN] Allergy Severe HIVES Verified 05/09/23 13:34 Penicillins [PENICILLINS] Allergy Severe HIVES Verified 05/09/23 13:34 tenofovir [From VIREAD] Allergy Severe HIVES Verified 05/09/23 13:34 tomato [TOMATO] Allergy Severe HIVES Verified 05/09/23 13:34 zidovudine [From RETROVIR] Allergy Severe HIVES Verified 05/09/23 13:34 lactose [Lactose] AdvReac Mild DIARRHEA Verified 05/17/23 11:10 disoproxail Allergy Mild Unknown Uncoded 05/09/23 13:34 Assessment & Plan Assessment & Plan (1) Cognitive developmental delay: Status: Acute Code(s): F81.9 - Developmental disorder of scholastic skills, unspecified (2) Psychosis: Status: Acute Code(s): F29 - Unspecified psychosis not due to a substance or known physiological condition Assessment and Plan: Mental health changes /psychosis? not due to HIV or syphilis likely since taking medication regularly. Patient says syphilis titers are old and is inactive (3) Positive serological reaction for syphilis: Status: Acute Code(s): A53.0 - Latent syphilis, unspecified as early or late Plan 05/21- continue tx. Reason for continued inpatient stay Substantial Risk for: harm to others and inability to function Time Spent With Patient Time: Total time managing care of this patient today ____ minutes.
[2023-05-21] MEDS: HaloperidoL 5 MG TABLET PO (14:20)
[2023-05-21] MEDS: LORazepam 1 MG TABLET 2 MG PO (14:20)
[2023-05-21] MEDS: traZODone HCL 100 MG TABLET PO (21:52)
[2023-05-21] MEDS: Atorvastatin Calcium 10 MG TABLET PO (21:52)
[2023-05-21] MEDS: Simethicone 80 MG TAB.CHEW PO (21:53)
[2023-05-22] MEDS: Levothyroxine Sodium 75 MCG TABLET PO (06:44)
[2023-05-22] MEDS: cefuroxime axetiL 250 MG TABLET PO ×2 (06:44→17:55)
[2023-05-22 07:58] VITALS: BP 117/68; PULSE 85; RESP 18; TEMP 36; O2SAT 97
[2023-05-22] MEDS: Multivitamin TABLET 1 TAB PO (08:00)
[2023-05-22] MEDS: Cholecalciferol (Vitamin D3) 25 MCG TABLET PO (08:00)
[2023-05-22] MEDS: Folic Acid 1 MG TABLET PO (08:00)
[2023-05-22] MEDS: Bictegrav/Emtricit/Tenofov Ala TABLET 1 TAB PO (08:00)
[2023-05-22] MEDS: Calcium + Vitamin D 250 MG TABLET 500 MG PO ×2 (08:01→20:50)
[2023-05-22] MEDS: oxyBUTYnin chloride ER 5 MG TAB.ER.24 PO (08:01)
[2023-05-22] MEDS: QUEtiapine Fumarate 200 MG TABLET PO ×3 (08:03→20:49)
[2023-05-22] MEDS: Psyllium seed 3.7 GM PACKET PO (08:04)
[2023-05-22] MEDS: Omeprazole 20 MG CAPSULE.DR PO (08:05)
[2023-05-22] MEDS: Sodium Chloride 0.65 % Nasal 44 ML SPRBTL 1 SPRAY NOSTRIL-B (08:05)
[2023-05-22 09:03] LABS: HIV RNA PCR Qn Copies NOT DETECTED copies/mL (NOT DETECTED); HIV RNA PCR Qn Log Copies NOT DETECTED (NOT DETECTED)
--- NOTE | 2023-05-22 20:33 | P.PNPSI_ITS ---
Subjective Subjective Date of Service: 05/22/23 Reason For Visit: Psychosis Subjective Notes: Conditional Voluntary Interim History: Pt continues to present as labile at times, continues to report hearing voices of staff from [facility]...although when asked directly about voices she denies and states that it is [facility] communicating directly to her ear, because they can't call the hospital's phone. No insight into symptoms or changes in behaviors. Yelling at staff at times, punching tables, able to be redirected. Informed that team file for commitment. Medication Compliance: Yes Side effects from medications: No Attending Groups: Yes Review of Systems Review of Systems No SOB No chest pain Pt denies pain Pt denies GI symptoms including constipation or diarrhea. Yes all other systems are reviewed and are negative Mental Status Exam Mental Status Exam Narrative: Appearance: wearing casual clothing, fair hygiene, in NAD Behavior: not cooperative Psychomotor: agitation of standing and yelling and leaving the interview room Speech: clear, normal rate/rhythm, spontaneous. increased amount and loudness. TP: circumstantial, some loose associations at times TC: demanding to leave, Mood: I'm fine Affect: labile, full range, hyper-intense SI: none expressed HI: none expressed VH/AH: hearing voices of staff from alf, her son, although when asked directly denies hearing voices. Insight/judgment: impaired x 2. Memory/cog: alert, confused about month, not to situation. She is able to say that she is at [place] and that this is the hospital. Diagnostics Vital Signs (24Hr): Vital Signs - 24 hr 05/22/23 07:58 Temperature 96.8 F Pulse Rate 85 Respiratory Rate 18 Blood Pressure 117/68 Pulse Oximetry 97 Oxygen Delivery Method Room Air BMI result Body Mass Index 25.0 Labs 05/16/23 14:52 05/17/23 08:54 Labs: Laboratory Results - last 48 hr 05/20/23 16:15 Lymphocyte Subset Cmmnt TNP Total Lymphocytes 1504 % CD3 Cells 85 Absolute CD3 Count 1283 % CD4 Cells 50 Absolute CD4 Count 756 CD4/CD8 Ratio 1.39 % CD8 Cells 36 Absolute CD8 Count 542 HIV-1 RNA copies/mL NOT DETECTED HIV-1 RNA logcopies/mL NOT DETECTED Imaging Radiology Impressions: ITS Impressions Head CT 05/17/23 17:01 IMPRESSION: Unremarkable exam. Medications Medications Current Medications Acetaminophen (Acetaminophen 325 Mg Tablet) 650 mg PO Q6H PRN PRN Reason: Pain Last Admin: 05/20/23 14:17 Dose: 650 mg Al Hydroxide/Mg Hydroxide (Magnesium Hydrox/Alum Hydrox 30 Ml Oral.Susp) 30 ml PO Q6H PRN PRN Reason: Heartburn/Nausea Albuterol Sulfate (Albuterol Sulfate 90 Mcg 8 Gm Inhaler) 2 puff INHALE Q4H PRN PRN Reason: Wheezing Last Admin: 05/18/23 21:03 Dose: 2 puff Atorvastatin Calcium (Atorvastatin Calcium 10 Mg Tablet) 10 mg PO BEDTIME [facility] Last Admin: 05/21/23 21:52 Dose: 10 mg Bictegravir/Emtricitabine/Tenofovir (Bictegrav/Emtricit/Tenofov Ala Tablet) 1 tab PO DAILY [facility] Last Admin: 05/22/23 08:00 Dose: 1 tab Calcium Carbonate/Cholecalciferol (Calcium + Vitamin D 250 Mg Tablet) 500 mg PO BID [facility] Last Admin: 05/22/23 08:01 Dose: 500 mg Cefuroxime Axetil (Cefuroxime Axetil 250 Mg Tablet) 250 mg PO Q12H [facility] Stop: 05/24/23 17:59 Last Admin: 05/22/23 17:55 Dose: 250 mg Folic Acid (Folic Acid 1 Mg Tablet) 1 mg PO DAILY [facility] Last Admin: 05/22/23 08:00 Dose: 1 mg Hydrocortisone (Hydrocortisone 1 % Cream 28.35 Gm Tube) 1 appl TOPICAL BID PRN; Protocol PRN Reason: Rash Hydroxyzine HCl (Hydroxyzine Hcl 25 Mg Tablet) 25 mg PO Q6H PRN PRN Reason: Anxiety Lactase (Lactase Tablet) 2 tab PO QIDWMHS PRN PRN Reason: EATING DIARY Levothyroxine Sodium (Levothyroxine Sodium 75 Mcg Tablet) 75 mcg PO DAILY@0600 [facility] Last Admin: 05/22/23 06:44 Dose: 75 mcg Loperamide HCl (Loperamide Hcl 2 Mg Capsule) 2 mg PO QID PRN PRN Reason: Loose Stool Magnesium Hydroxide (Milk Of Magnesia 30 Ml Oral.Susp) 30 ml PO DAILY PRN PRN Reason: Constipation Multi-Ingred Cream/Lotion/Oil/Oint (Mineral Oil/Petrolatum,White 106 Gm Tube) 1 appl TOPICAL TID [facility]; Protocol Last Admin: 05/22/23 14:50 Dose: Not Given Multivitamins/Vitamin C (Multivitamin Tablet) 1 tab PO DAILY [facility] Last Admin: 05/22/23 08:00 Dose: 1 tab Non-Formulary Medication (Famciclovir) 1,000 mg PO DAILY [facility] Omeprazole (Omeprazole 20 Mg Capsule.Dr) 20 mg PO DAILY@0630 [facility] Last Admin: 05/22/23 08:05 Dose: 20 mg Oxybutynin Chloride (Oxybutynin Chloride Er 5 Mg Tab.Er.24) 5 mg PO DAILY [facility] Last Admin: 05/22/23 08:01 Dose: 5 mg Psyllium Hydrophilic Mucilloid (Psyllium Seed 3.7 Gm Packet) 3.7 gm PO BID [facility] Last Admin: 05/22/23 08:04 Dose: 3.7 gm Quetiapine Fumarate (Quetiapine Fumarate 200 Mg Tablet) 200 mg PO TID [facility] Last Admin: 05/22/23 14:40 Dose: 200 mg Senna/Docusate Sodium (Sennosides/Docusate Sodium Tablet) 2 tab PO MoWeFr@2100 [facility] Last Admin: 05/20/23 20:52 Dose: 2 tab Sertraline HCl (Sertraline Hcl 100 Mg Tablet) 100 mg PO DAILY [facility] Last Admin: 05/19/23 08:35 Dose: 100 mg Simethicone (Simethicone 80 Mg Tab.Chew) 80 mg PO BEDTIME [facility] Last Admin: 05/21/23 21:53 Dose: 80 mg Sodium Chloride (Sodium Chloride 0.65 % Nasal 44 Ml Sprbtl) 1 spray NOSTRIL-B BID [facility] Last Admin: 05/22/23 08:05 Dose: 1 spray Trazodone HCl (Trazodone Hcl 50 Mg Tablet) 50 mg PO BEDTIME MRX1 PRN PRN Reason: Insomnia Last Admin: 05/18/23 21:03 Dose: 50 mg Trazodone HCl (Trazodone Hcl 100 Mg Tablet) 100 mg PO BEDTIME [facility] Last Admin: 05/21/23 21:52 Dose: 100 mg Vitamin D (Cholecalciferol (Vitamin D3) 25 Mcg Tablet) 25 mcg PO DAILY [facility] Last Admin: 05/22/23 08:00 Dose: 25 mcg Allergies Allergies Allergy/AdvReac Type Severity Reaction Status Date / Time abacavir [ABACAVIR] Allergy Severe HIVES Verified 05/09/23 13:34 hydrochlorothiazide Allergy Severe HIVES Verified 05/09/23 13:34 [HYDROCHLOROTHIAZIDE] ibuprofen [From MOTRIN] Allergy Severe HIVES Verified 05/09/23 13:34 Penicillins [PENICILLINS] Allergy Severe HIVES Verified 05/09/23 13:34 tenofovir [From VIREAD] Allergy Severe HIVES Verified 05/09/23 13:34 tomato [TOMATO] Allergy Severe HIVES Verified 05/09/23 13:34 zidovudine [From RETROVIR] Allergy Severe HIVES Verified 05/09/23 13:34 lactose [Lactose] AdvReac Mild DIARRHEA Verified 05/17/23 11:10 disoproxail Allergy Mild Unknown Uncoded 05/09/23 13:34 Assessment & Plan Assessment & Plan (1) Cognitive developmental delay: Status: Acute Code(s): F81.9 - Developmental disorder of scholastic skills, unspecified (2) Psychosis: Status: Acute Code(s): F29 - Unspecified psychosis not due to a substance or known physiological condition Assessment and Plan: Mental health changes /psychosis? not due to HIV or syphilis likely since taking medication regularly. Patient says syphilis titers are old and is inactive (3) Positive serological reaction for syphilis: Status: Acute Code(s): A53.0 - Latent syphilis, unspecified as early or late Plan 05/21- continue tx. 05/22 filed involuntary treatment as pt continues to present as labile, explosive and paranoid/some grandiose delusions and auditory hallucinations. Reason for continued inpatient stay Substantial Risk for: harm to others and inability to function Time Spent With Patient Time: Total time managing care of this patient today ____ minutes.
[2023-05-22] MEDS: Sennosides/Docusate Sodium TABLET 2 TAB PO (20:48)
[2023-05-22] MEDS: Simethicone 80 MG TAB.CHEW PO (20:49)
[2023-05-22] MEDS: traZODone HCL 100 MG TABLET PO (20:49)
[2023-05-22] MEDS: Atorvastatin Calcium 10 MG TABLET PO (20:50)
[2023-05-23] MEDS: Levothyroxine Sodium 75 MCG TABLET PO (06:18)
[2023-05-23] MEDS: cefuroxime axetiL 250 MG TABLET PO ×2 (06:18→21:20)
[2023-05-23] MEDS: Omeprazole 20 MG CAPSULE.DR PO (06:45)
[2023-05-23] MEDS: Lactase TABLET 2 TAB PO (07:02)
[2023-05-23 07:10] VITALS: BP 135/65; PULSE 81; RESP 22; TEMP 36.2; O2SAT 97
[2023-05-23] MEDS: Mineral Oil/Petrolatum,White 106 GM Tube 1 APPL TOPICAL (08:21)
[2023-05-23] MEDS: Sodium Chloride 0.65 % Nasal 44 ML SPRBTL 1 SPRAY NOSTRIL-B (08:21)
[2023-05-23] MEDS: oxyBUTYnin chloride ER 5 MG TAB.ER.24 PO (08:22)
[2023-05-23] MEDS: Multivitamin TABLET 1 TAB PO (08:23)
[2023-05-23] MEDS: Calcium + Vitamin D 250 MG TABLET 500 MG PO ×2 (08:23→21:19)
[2023-05-23] MEDS: Bictegrav/Emtricit/Tenofov Ala TABLET 1 TAB PO (08:23)
[2023-05-23] MEDS: QUEtiapine Fumarate 200 MG TABLET PO ×3 (08:23→21:19)
[2023-05-23] MEDS: Folic Acid 1 MG TABLET PO (08:23)
[2023-05-23] MEDS: Cholecalciferol (Vitamin D3) 25 MCG TABLET PO (08:23)
[2023-05-23] MEDS: hydrOXYzine HCL 25 MG TABLET PO (08:23)
[2023-05-23 08:24] VITALS: BMI 30.1
[2023-05-23] MEDS: Psyllium seed 3.7 GM PACKET PO ×2 (08:31→21:20)
--- NOTE | 2023-05-23 10:17 | HO.PSYCHPN ---
Subjective Subjective Date of Service: 05/23/23 Reason For Visit: Psychosis Subjective Notes: Section 7 Interim History: Pt continues to present as labile, explosive, reporting hearing voice of staff from [facility] in her ear, but denies hearing voices other's can't here. She does not understand why she is here, upset with this display card writer for not being able to leave. Met with tax attorney for sect 7. Pt hitting wall, swinging at staff, screaming, not responding to redirection. Required IM haldol 10mg and ativan 2mg IM. Review of Systems Review of Systems No SOB No chest pain Pt denies pain Pt denies GI symptoms including constipation or diarrhea. Yes all other systems are reviewed and are negative Mental Status Exam Mental Status Exam Narrative: Appearance: wearing casual clothing, fair hygiene, in NAD Behavior: not cooperative Psychomotor: agitation of standing and yelling and leaving the interview room Speech: clear, normal rate/rhythm, spontaneous. increased amount and loudness. TP: circumstantial, some loose associations at times TC: demanding to leave, Mood: I'm fine Affect: labile, full range, hyper-intense SI: none expressed HI: none expressed VH/AH: hearing voices of staff from [facility], her son, although when asked directly denies hearing voices. Insight/judgment: impaired x 2. Memory/cog: alert, confused about month, not to situation. She is able to say that she is at [place] and that this is the hospital. Diagnostics Vital Signs (24Hr): Vital Signs - 24 hr 05/23/23 07:10 Temperature 97.2 F Pulse Rate 81 Respiratory Rate 22 H Blood Pressure 135/65 Pulse Oximetry 97 Oxygen Delivery Method Room Air BMI result Body Mass Index 30.1 Labs 05/16/23 14:52 05/17/23 08:54 Labs: Laboratory Results - last 48 hr 05/20/23 16:15 Lymphocyte Subset Cmmnt TNP HIV-1 RNA copies/mL NOT DETECTED HIV-1 RNA logcopies/mL NOT DETECTED Imaging Radiology Impressions: ITS Impressions Head CT 05/17/23 17:01 IMPRESSION: Unremarkable exam. Medications Medications Current Medications Acetaminophen (Acetaminophen 325 Mg Tablet) 650 mg PO Q6H PRN PRN Reason: Pain Last Admin: 05/20/23 14:17 Dose: 650 mg Al Hydroxide/Mg Hydroxide (Magnesium Hydrox/Alum Hydrox 30 Ml Oral.Susp) 30 ml PO Q6H PRN PRN Reason: Heartburn/Nausea Albuterol Sulfate (Albuterol Sulfate 90 Mcg 8 Gm Inhaler) 2 puff INHALE Q4H PRN PRN Reason: Wheezing Last Admin: 05/18/23 21:03 Dose: 2 puff Atorvastatin Calcium (Atorvastatin Calcium 10 Mg Tablet) 10 mg PO BEDTIME [facility] Last Admin: 05/22/23 20:50 Dose: 10 mg Bictegravir/Emtricitabine/Tenofovir (Bictegrav/Emtricit/Tenofov Ala Tablet) 1 tab PO DAILY [facility] Last Admin: 05/23/23 08:23 Dose: 1 tab Calcium Carbonate/Cholecalciferol (Calcium + Vitamin D 250 Mg Tablet) 500 mg PO BID [facility] Last Admin: 05/23/23 08:23 Dose: 500 mg Cefuroxime Axetil (Cefuroxime Axetil 250 Mg Tablet) 250 mg PO Q12H [facility] Stop: 05/24/23 17:59 Last Admin: 05/23/23 06:18 Dose: 250 mg Folic Acid (Folic Acid 1 Mg Tablet) 1 mg PO DAILY [facility] Last Admin: 05/23/23 08:23 Dose: 1 mg Hydrocortisone (Hydrocortisone 1 % Cream 28.35 Gm Tube) 1 appl TOPICAL BID PRN; Protocol PRN Reason: Rash Hydroxyzine HCl (Hydroxyzine Hcl 25 Mg Tablet) 25 mg PO Q6H PRN PRN Reason: Anxiety Last Admin: 05/23/23 08:23 Dose: 25 mg Lactase (Lactase Tablet) 2 tab PO QIDWMHS PRN PRN Reason: EATING DIARY Last Admin: 05/23/23 07:02 Dose: 2 tab Levothyroxine Sodium (Levothyroxine Sodium 75 Mcg Tablet) 75 mcg PO DAILY@0600 [facility] Last Admin: 05/23/23 06:18 Dose: 75 mcg Loperamide HCl (Loperamide Hcl 2 Mg Capsule) 2 mg PO QID PRN PRN Reason: Loose Stool Magnesium Hydroxide (Milk Of Magnesia 30 Ml Oral.Susp) 30 ml PO DAILY PRN PRN Reason: Constipation Multi-Ingred Cream/Lotion/Oil/Oint (Mineral Oil/Petrolatum,White 106 Gm Tube) 1 appl TOPICAL TID RENATO; Protocol Last Admin: 05/23/23 08:21 Dose: 1 appl Multivitamins/Vitamin C (Multivitamin Tablet) 1 tab PO DAILY [facility] Last Admin: 05/23/23 08:23 Dose: 1 tab Non-Formulary Medication (Famciclovir) 1,000 mg PO DAILY [facility] Omeprazole (Omeprazole 20 Mg Capsule.Dr) 20 mg PO DAILY@0630 [facility] Last Admin: 05/23/23 06:45 Dose: 20 mg Oxybutynin Chloride (Oxybutynin Chloride Er 5 Mg Tab.Er.24) 5 mg PO DAILY [facility] Last Admin: 05/23/23 08:22 Dose: 5 mg Psyllium Hydrophilic Mucilloid (Psyllium Seed 3.7 Gm Packet) 3.7 gm PO BID [facility] Last Admin: 05/23/23 08:31 Dose: 3.7 gm Quetiapine Fumarate (Quetiapine Fumarate 200 Mg Tablet) 200 mg PO TID [facility] Last Admin: 05/23/23 08:23 Dose: 200 mg Senna/Docusate Sodium (Sennosides/Docusate Sodium Tablet) 2 tab PO MoWeFr@2100 [facility] Last Admin: 05/22/23 20:48 Dose: 2 tab Sertraline HCl (Sertraline Hcl 100 Mg Tablet) 100 mg PO DAILY [facility] Last Admin: 05/19/23 08:35 Dose: 100 mg Simethicone (Simethicone 80 Mg Tab.Chew) 80 mg PO BEDTIME [facility] Last Admin: 05/22/23 20:49 Dose: 80 mg Sodium Chloride (Sodium Chloride 0.65 % Nasal 44 Ml Sprbtl) 1 spray NOSTRIL-B BID [facility] Last Admin: 05/23/23 08:21 Dose: 1 spray Trazodone HCl (Trazodone Hcl 50 Mg Tablet) 50 mg PO BEDTIME MRX1 PRN PRN Reason: Insomnia Last Admin: 05/18/23 21:03 Dose: 50 mg Trazodone HCl (Trazodone Hcl 100 Mg Tablet) 100 mg PO BEDTIME [facility] Last Admin: 05/22/23 20:49 Dose: 100 mg Vitamin D (Cholecalciferol (Vitamin D3) 25 Mcg Tablet) 25 mcg PO DAILY [facility] Last Admin: 05/23/23 08:23 Dose: 25 mcg Allergies Allergies Allergy/AdvReac Type Severity Reaction Status Date / Time abacavir [ABACAVIR] Allergy Severe HIVES Verified 05/09/23 13:34 hydrochlorothiazide Allergy Severe HIVES Verified 05/09/23 13:34 [HYDROCHLOROTHIAZIDE] ibuprofen [From MOTRIN] Allergy Severe HIVES Verified 05/09/23 13:34 Penicillins [PENICILLINS] Allergy Severe HIVES Verified 05/09/23 13:34 tenofovir [From VIREAD] Allergy Severe HIVES Verified 05/09/23 13:34 tomato [TOMATO] Allergy Severe HIVES Verified 05/09/23 13:34 zidovudine [From RETROVIR] Allergy Severe HIVES Verified 05/09/23 13:34 lactose [Lactose] AdvReac Mild DIARRHEA Verified 05/17/23 11:10 disoproxail Allergy Mild Unknown Uncoded 05/09/23 13:34 Assessment & Plan Assessment & Plan (1) Cognitive developmental delay: Status: Acute Code(s): F81.9 - Developmental disorder of scholastic skills, unspecified (2) Psychosis: Status: Acute Code(s): F29 - Unspecified psychosis not due to a substance or known physiological condition Assessment and Plan: Mental health changes /psychosis? not due to HIV or syphilis likely since taking medication regularly. Patient says syphilis titers are old and is inactive (3) Positive serological reaction for syphilis: Status: Acute Code(s): A53.0 - Latent syphilis, unspecified as early or late Plan 05/21- continue tx. 05/22 filed involuntary treatment as pt continues to present as labile, explosive and paranoid/some grandiose delusions and auditory hallucinations. 05/23 continues to present as labile, explosive with paranoid delusions and psychosis. will add depakote 500mg po BID for explosive, grandiose delusions. Reason for continued inpatient stay Substantial Risk for: inability to function Time Spent With Patient Time: Total time managing care of this patient today ____ minutes.
[2023-05-23] MEDS: Haloperidol Lactate 5 MG/ML VIAL 10 MG IM (16:23)
[2023-05-23] MEDS: LORazepam 2 MG/ML VIAL IM (16:23)
--- NOTE | 2023-05-23 17:19 | PC.NURSE ---
Addendum entered by Rosa Sam RN 05/23/23 18:35: Attempt was made at 1650 to contact patient's legal guardian to inform of restraint but there was no answer and no voicemail. Original Note: Patient's bar finish operator visited today at 1600. During that visit pt became agitated and began yelling at bar finish operator, I approached the visit room and she yelled at me, You trying to take custody of me and keep me here? I attempted to explain section 7 process and pt yelled over me. Her behavior escalated to swearing, then punching the wall. Diesel Powerplant Supervisor was escorted off the unit. Pt was offered quiet area, change of activity and snack/ drink all of which she refused. Staff attempted to redirect pt to ante room. She remained in the hallway screaming I'm going home. Let me out now. , verbally threatening staff and then began kicking the wall. Security arrived to the unit. Waleska Irizarry [employer] ordered medication restraint, Patient was verbally redirected to the ante room - given choice of sitting on the bed and allowing safe injection or being restrained in the chair for safe injection. With prompting she sat in anteroom and allowed safe injection ; Haldol 10mg IM and ativan 2mg IM at 1623. Throughout this time patient was loudly yelling belief that [facility] staff are stealing her money and taking her belongings, that staff here on the unit are conspiring to keep her here. Adrianne tolerated injections without complaint and achieved tension reduction within 10 minutes. She was tearful and apologetic and expressing fear that she is locked in here forever. Patient was offered snack, drink and quiet space which she accepted. Pt is currently calm and behaving appropriately on the unit.
[2023-05-23] MEDS: Divalproex Sodium 500 MG TABLET.DR PO (21:19)
[2023-05-23] MEDS: Atorvastatin Calcium 10 MG TABLET PO (21:19)
[2023-05-23 22:00] VITALS: BP 126/59; PULSE 72; RESP 16; TEMP 36.2; O2SAT 96
--- NOTE | 2023-05-23 23:24 | PC.ADMIT ---
Pt was restrained this afternoon was unable to be awake enough to accept evening medications. burlapper okayed holding hs meds this evening.
[2023-05-24] MEDS: Levothyroxine Sodium 75 MCG TABLET PO (06:21)
[2023-05-24] MEDS: Omeprazole 20 MG CAPSULE.DR PO (07:06)
[2023-05-24] MEDS: cefuroxime axetiL 250 MG TABLET PO (07:06)
[2023-05-24 08:07] VITALS: BP 120/57; PULSE 82; RESP 16; TEMP 36.2; O2SAT 95
[2023-05-24] MEDS: Sodium Chloride 0.65 % Nasal 44 ML SPRBTL 1 SPRAY NOSTRIL-B ×2 (08:34→21:10)
[2023-05-24] MEDS: Mineral Oil/Petrolatum,White 106 GM Tube 1 APPL TOPICAL ×3 (08:34→21:10)
[2023-05-24] MEDS: QUEtiapine Fumarate 200 MG TABLET PO ×3 (08:35→21:12)
[2023-05-24] MEDS: Bictegrav/Emtricit/Tenofov Ala TABLET 1 TAB PO (08:35)
[2023-05-24] MEDS: oxyBUTYnin chloride ER 5 MG TAB.ER.24 PO (08:35)
[2023-05-24] MEDS: Multivitamin TABLET 1 TAB PO (08:35)
[2023-05-24] MEDS: Calcium + Vitamin D 250 MG TABLET 500 MG PO ×2 (08:35→21:11)
[2023-05-24] MEDS: Cholecalciferol (Vitamin D3) 25 MCG TABLET PO (08:35)
[2023-05-24] MEDS: Folic Acid 1 MG TABLET PO (08:35)
[2023-05-24] MEDS: Divalproex Sodium 500 MG TABLET.DR PO (08:35)
[2023-05-24] MEDS: Psyllium seed 3.7 GM PACKET PO ×2 (08:36→21:11)
--- NOTE | 2023-05-24 18:51 | HO.PSYCHPN ---
Subjective Subjective Date of Service: 05/24/23 Reason For Visit: Psychosis Subjective Notes: Section 7 Interim History: Pt continues to present as labile, explosive, reporting hearing voice of staff from [facility] in her ear, but denies hearing voices other's can't here. She does not understand why she is here, upset with this comic book writer for not being able to leave. She was visible on the unit, attended some assigned groups. She slept through the night. She did start depakote last night. Medication Compliance: Intermittent Review of Systems Review of Systems No SOB No chest pain Pt denies pain Pt denies GI symptoms including constipation or diarrhea. Yes all other systems are reviewed and are negative Mental Status Exam Mental Status Exam Narrative: Appearance: wearing casual clothing, fair hygiene, in NAD Behavior: not cooperative Psychomotor: agitation of standing and yelling and leaving the interview room Speech: clear, normal rate/rhythm, spontaneous. increased amount and loudness. TP: circumstantial, some loose associations at times TC: demanding to leave, Mood: I'm fine Affect: labile, full range, hyper-intense SI: none expressed HI: none expressed VH/AH: hearing voices of staff from [facility], her son, although when asked directly denies hearing voices. Insight/judgment: impaired x 2. Memory/cog: alert, confused about month, not to situation. She is able to say that she is at [facility] and that this is the hospital. Diagnostics Vital Signs (24Hr): Vital Signs - 24 hr 05/23/23 22:00 05/24/23 08:07 Temperature 97.1 F 97.2 F Pulse Rate 72 82 Respiratory Rate 16 16 Blood Pressure 126/59 L 120/57 L Pulse Oximetry 96 95 Oxygen Delivery Method Room Air Room Air BMI result Body Mass Index 30.1 Labs 05/16/23 14:52 05/17/23 08:54 Imaging Radiology Impressions: ITS Impressions Head CT 05/17/23 17:01 IMPRESSION: Unremarkable exam. Medications Medications Current Medications Acetaminophen (Acetaminophen 325 Mg Tablet) 650 mg PO Q6H PRN PRN Reason: Pain Last Admin: 05/20/23 14:17 Dose: 650 mg Al Hydroxide/Mg Hydroxide (Magnesium Hydrox/Alum Hydrox 30 Ml Oral.Susp) 30 ml PO Q6H PRN PRN Reason: Heartburn/Nausea Albuterol Sulfate (Albuterol Sulfate 90 Mcg 8 Gm Inhaler) 2 puff INHALE Q4H PRN PRN Reason: Wheezing Last Admin: 05/18/23 21:03 Dose: 2 puff Atorvastatin Calcium (Atorvastatin Calcium 10 Mg Tablet) 10 mg PO BEDTIME [facility] Last Admin: 05/23/23 21:19 Dose: 10 mg Bictegravir/Emtricitabine/Tenofovir (Bictegrav/Emtricit/Tenofov Ala Tablet) 1 tab PO DAILY [facility] Last Admin: 05/24/23 08:35 Dose: 1 tab Calcium Carbonate/Cholecalciferol (Calcium + Vitamin D 250 Mg Tablet) 500 mg PO BID [facility] Last Admin: 05/24/23 08:35 Dose: 500 mg Divalproex Sodium (Divalproex Sodium 250 Mg Tablet.) 750 mg PO BID [facility] Folic Acid (Folic Acid 1 Mg Tablet) 1 mg PO DAILY [facility] Last Admin: 05/24/23 08:35 Dose: 1 mg Hydrocortisone (Hydrocortisone 1 % Cream 28.35 Gm Tube) 1 appl TOPICAL BID PRN; Protocol PRN Reason: Rash Hydroxyzine HCl (Hydroxyzine Hcl 25 Mg Tablet) 25 mg PO Q6H PRN PRN Reason: Anxiety Last Admin: 05/23/23 08:23 Dose: 25 mg Lactase (Lactase Tablet) 2 tab PO QIDWMHS PRN PRN Reason: EATING DIARY Last Admin: 05/23/23 07:02 Dose: 2 tab Levothyroxine Sodium (Levothyroxine Sodium 75 Mcg Tablet) 75 mcg PO DAILY@0600 [facility] Last Admin: 05/24/23 06:21 Dose: 75 mcg Loperamide HCl (Loperamide Hcl 2 Mg Capsule) 2 mg PO QID PRN PRN Reason: Loose Stool Magnesium Hydroxide (Milk Of Magnesia 30 Ml Oral.Susp) 30 ml PO DAILY PRN PRN Reason: Constipation Multi-Ingred Cream/Lotion/Oil/Oint (Mineral Oil/Petrolatum,White 106 Gm Tube) 1 appl TOPICAL TID [facility]; Protocol Last Admin: 05/24/23 15:08 Dose: 1 appl Multivitamins/Vitamin C (Multivitamin Tablet) 1 tab PO DAILY [facility] Last Admin: 05/24/23 08:35 Dose: 1 tab Non-Formulary Medication (Famciclovir) 1,000 mg PO DAILY [facility] Omeprazole (Omeprazole 20 Mg Capsule.) 20 mg PO DAILY@0630 [facility] Last Admin: 05/24/23 07:06 Dose: 20 mg Oxybutynin Chloride (Oxybutynin Chloride Er 5 Mg Tab.Er.24) 5 mg PO DAILY [facility] Last Admin: 05/24/23 08:35 Dose: 5 mg Psyllium Hydrophilic Mucilloid (Psyllium Seed 3.7 Gm Packet) 3.7 gm PO BID [facility] Last Admin: 05/24/23 08:36 Dose: 3.7 gm Quetiapine Fumarate (Quetiapine Fumarate 200 Mg Tablet) 200 mg PO TID [facility] Last Admin: 05/24/23 15:07 Dose: 200 mg Senna/Docusate Sodium (Sennosides/Docusate Sodium Tablet) 2 tab PO MoWeFr@2100 [facility] Last Admin: 05/22/23 20:48 Dose: 2 tab Sertraline HCl (Sertraline Hcl 100 Mg Tablet) 100 mg PO DAILY [facility] Last Admin: 05/19/23 08:35 Dose: 100 mg Simethicone (Simethicone 80 Mg Tab.Chew) 80 mg PO BEDTIME [facility] Last Admin: 05/23/23 23:23 Dose: Not Given Sodium Chloride (Sodium Chloride 0.65 % Nasal 44 Ml Sprbtl) 1 spray NOSTRIL-B BID [facility] Last Admin: 05/24/23 08:34 Dose: 1 spray Trazodone HCl (Trazodone Hcl 50 Mg Tablet) 50 mg PO BEDTIME MRX1 PRN PRN Reason: Insomnia Last Admin: 05/18/23 21:03 Dose: 50 mg Trazodone HCl (Trazodone Hcl 100 Mg Tablet) 100 mg PO BEDTIME [facility] Last Admin: 05/23/23 23:24 Dose: Not Given Vitamin D (Cholecalciferol (Vitamin D3) 25 Mcg Tablet) 25 mcg PO DAILY [facility] Last Admin: 05/24/23 08:35 Dose: 25 mcg Allergies Allergies Allergy/AdvReac Type Severity Reaction Status Date / Time abacavir [ABACAVIR] Allergy Severe HIVES Verified 05/09/23 13:34 hydrochlorothiazide Allergy Severe HIVES Verified 05/09/23 13:34 [HYDROCHLOROTHIAZIDE] ibuprofen [From MOTRIN] Allergy Severe HIVES Verified 05/09/23 13:34 Penicillins [PENICILLINS] Allergy Severe HIVES Verified 05/09/23 13:34 tenofovir [From VIREAD] Allergy Severe HIVES Verified 05/09/23 13:34 tomato [TOMATO] Allergy Severe HIVES Verified 05/09/23 13:34 zidovudine [From RETROVIR] Allergy Severe HIVES Verified 05/09/23 13:34 lactose [Lactose] AdvReac Mild DIARRHEA Verified 05/17/23 11:10 disoproxail Allergy Mild Unknown Uncoded 05/09/23 13:34 Assessment & Plan Assessment & Plan (1) Cognitive developmental delay: Status: Acute Code(s): F81.9 - Developmental disorder of scholastic skills, unspecified (2) Psychosis: Status: Acute Code(s): F29 - Unspecified psychosis not due to a substance or known physiological condition Assessment and Plan: Mental health changes /psychosis? not due to HIV or syphilis likely since taking medication regularly. Patient says syphilis titers are old and is inactive (3) Positive serological reaction for syphilis: Status: Acute Code(s): A53.0 - Latent syphilis, unspecified as early or late Plan 05/21- continue tx. 05/22 filed involuntary treatment as pt continues to present as labile, explosive and paranoid/some grandiose delusions and auditory hallucinations. 05/23 continues to present as labile, explosive with paranoid delusions and psychosis. will add depakote 500mg po BID for explosive, grandiose delusions. 05/24 no significant change. continue current medications. Reason for continued inpatient stay Substantial Risk for: inability to function Time Spent With Patient Time: Total time managing care of this patient today ____ minutes.
[2023-05-24] MEDS: Divalproex Sodium 250 MG TABLET.DR 750 MG PO (21:11)
[2023-05-24] MEDS: Simethicone 80 MG TAB.CHEW PO (21:12)
[2023-05-24] MEDS: Sennosides/Docusate Sodium TABLET 2 TAB PO (21:12)
[2023-05-24] MEDS: Atorvastatin Calcium 10 MG TABLET PO (21:12)
[2023-05-24] MEDS: traZODone HCL 100 MG TABLET PO (21:12)
[2023-05-24 21:19] VITALS: BP 140/78; PULSE 88; TEMP 36.4; O2SAT 94
[2023-05-25] MEDS: Levothyroxine Sodium 75 MCG TABLET PO (06:51)
[2023-05-25 08:07] VITALS: BP 114/58; PULSE 73; RESP 16; TEMP 36.5; O2SAT 97
[2023-05-25] MEDS: Psyllium seed 3.7 GM PACKET PO ×2 (08:47→20:59)
[2023-05-25] MEDS: Divalproex Sodium 250 MG TABLET.DR 750 MG PO ×2 (08:47→20:59)
[2023-05-25] MEDS: Calcium + Vitamin D 250 MG TABLET 500 MG PO ×2 (08:48→20:59)
[2023-05-25] MEDS: Multivitamin TABLET 1 TAB PO (08:48)
[2023-05-25] MEDS: Cholecalciferol (Vitamin D3) 25 MCG TABLET PO (08:48)
[2023-05-25] MEDS: QUEtiapine Fumarate 200 MG TABLET PO ×3 (08:48→20:59)
[2023-05-25] MEDS: Omeprazole 20 MG CAPSULE.DR PO (08:49)
[2023-05-25] MEDS: Bictegrav/Emtricit/Tenofov Ala TABLET 1 TAB PO (08:49)
[2023-05-25] MEDS: oxyBUTYnin chloride ER 5 MG TAB.ER.24 PO (08:49)
[2023-05-25] MEDS: Folic Acid 1 MG TABLET PO (08:50)
[2023-05-25] MEDS: Sodium Chloride 0.65 % Nasal 44 ML SPRBTL 1 SPRAY NOSTRIL-B ×2 (08:51→21:00)
[2023-05-25] MEDS: Mineral Oil/Petrolatum,White 106 GM Tube 1 APPL TOPICAL ×2 (08:51→20:59)
--- NOTE | 2023-05-25 17:15 | HO.PSYCHPN ---
Subjective Subjective Date of Service: 05/25/23 Reason For Visit: Psychosis Interim History: Pt continues to present as labile, paranoid. She says I just want to go home. She was restrained two days ago for agitation. No restraints since. She is denying all symptoms and is guarded. She believes she doesn't need to be here. Sleep is reported good. She is adherent to meds. Denies hallucination and SI. Review of Systems Review of Systems No SOB No chest pain Pt denies pain Pt denies GI symptoms including constipation or diarrhea. Yes all other systems are reviewed and are negative Mental Status Exam Mental Status Exam Narrative: Appearance: wearing casual clothing, fair hygiene, in NAD Behavior: not cooperative Psychomotor: agitation of standing and yelling and leaving the interview room Speech: clear, normal rate/rhythm, spontaneous. increased amount and loudness. TP: circumstantial, some loose associations at times TC: demanding to leave, Mood: I'm fine Affect: labile, full range, hyper-intense SI: none expressed HI: none expressed VH/AH: hearing voices of staff from [facility], her son, although when asked directly denies hearing voices. Insight/judgment: impaired x 2. Memory/cog: alert, confused about month, not to situation. She is able to say that she is at [facility] and that this is the hospital. Diagnostics Vital Signs (24Hr): Vital Signs - 24 hr 05/24/23 21:19 05/25/23 08:07 Temperature 97.6 F 97.7 F Pulse Rate 88 73 Respiratory Rate 16 Blood Pressure 140/78 H 114/58 L Pulse Oximetry 94 97 Oxygen Delivery Method Room Air Room Air BMI result Body Mass Index 30.1 Labs 05/16/23 14:52 05/17/23 08:54 Imaging Radiology Impressions: ITS Impressions Head CT 05/17/23 17:01 IMPRESSION: Unremarkable exam. Medications Medications Current Medications Acetaminophen (Acetaminophen 325 Mg Tablet) 650 mg PO Q6H PRN PRN Reason: Pain Last Admin: 05/20/23 14:17 Dose: 650 mg Al Hydroxide/Mg Hydroxide (Magnesium Hydrox/Alum Hydrox 30 Ml Oral.Susp) 30 ml PO Q6H PRN PRN Reason: Heartburn/Nausea Albuterol Sulfate (Albuterol Sulfate 90 Mcg 8 Gm Inhaler) 2 puff INHALE Q4H PRN PRN Reason: Wheezing Last Admin: 05/18/23 21:03 Dose: 2 puff Atorvastatin Calcium (Atorvastatin Calcium 10 Mg Tablet) 10 mg PO BEDTIME [facility] Last Admin: 05/24/23 21:12 Dose: 10 mg Bictegravir/Emtricitabine/Tenofovir (Bictegrav/Emtricit/Tenofov Ala Tablet) 1 tab PO DAILY [facility] Last Admin: 05/25/23 08:49 Dose: 1 tab Calcium Carbonate/Cholecalciferol (Calcium + Vitamin D 250 Mg Tablet) 500 mg PO BID [facility] Last Admin: 05/25/23 08:48 Dose: 500 mg Divalproex Sodium (Divalproex Sodium 250 Mg Tablet.) 750 mg PO BID [facility] Last Admin: 05/25/23 08:47 Dose: 750 mg Folic Acid (Folic Acid 1 Mg Tablet) 1 mg PO DAILY [facility] Last Admin: 05/25/23 08:50 Dose: 1 mg Hydrocortisone (Hydrocortisone 1 % Cream 28.35 Gm Tube) 1 appl TOPICAL BID PRN; Protocol PRN Reason: Rash Hydroxyzine HCl (Hydroxyzine Hcl 25 Mg Tablet) 25 mg PO Q6H PRN PRN Reason: Anxiety Last Admin: 05/23/23 08:23 Dose: 25 mg Lactase (Lactase Tablet) 2 tab PO QIDWMHS PRN PRN Reason: EATING DIARY Last Admin: 05/23/23 07:02 Dose: 2 tab Levothyroxine Sodium (Levothyroxine Sodium 75 Mcg Tablet) 75 mcg PO DAILY@0600 [facility] Last Admin: 05/25/23 06:51 Dose: 75 mcg Loperamide HCl (Loperamide Hcl 2 Mg Capsule) 2 mg PO QID PRN PRN Reason: Loose Stool Magnesium Hydroxide (Milk Of Magnesia 30 Ml Oral.Susp) 30 ml PO DAILY PRN PRN Reason: Constipation Multi-Ingred Cream/Lotion/Oil/Oint (Mineral Oil/Petrolatum,White 106 Gm Tube) 1 appl TOPICAL TID [facility]; Protocol Last Admin: 05/25/23 14:16 Dose: Not Given Multivitamins/Vitamin C (Multivitamin Tablet) 1 tab PO DAILY [facility] Last Admin: 05/25/23 08:48 Dose: 1 tab Non-Formulary Medication (Famciclovir) 1,000 mg PO DAILY [facility] Omeprazole (Omeprazole 20 Mg Capsule.) 20 mg PO DAILY@0630 [facility] Last Admin: 05/25/23 08:49 Dose: 20 mg Oxybutynin Chloride (Oxybutynin Chloride Er 5 Mg Tab.Er.24) 5 mg PO DAILY [facility] Last Admin: 05/25/23 08:49 Dose: 5 mg Psyllium Hydrophilic Mucilloid (Psyllium Seed 3.7 Gm Packet) 3.7 gm PO BID [facility] Last Admin: 05/25/23 08:47 Dose: 3.7 gm Quetiapine Fumarate (Quetiapine Fumarate 200 Mg Tablet) 200 mg PO TID [facility] Last Admin: 05/25/23 14:14 Dose: 200 mg Senna/Docusate Sodium (Sennosides/Docusate Sodium Tablet) 2 tab PO MoWeFr@2100 [facility] Last Admin: 05/24/23 21:12 Dose: 2 tab Sertraline HCl (Sertraline Hcl 100 Mg Tablet) 100 mg PO DAILY [facility] Last Admin: 05/19/23 08:35 Dose: 100 mg Simethicone (Simethicone 80 Mg Tab.Chew) 80 mg PO BEDTIME [facility] Last Admin: 05/24/23 21:12 Dose: 80 mg Sodium Chloride (Sodium Chloride 0.65 % Nasal 44 Ml Sprbtl) 1 spray NOSTRIL-B BID [facility] Last Admin: 05/25/23 08:51 Dose: 1 spray Trazodone HCl (Trazodone Hcl 50 Mg Tablet) 50 mg PO BEDTIME MRX1 PRN PRN Reason: Insomnia Last Admin: 05/18/23 21:03 Dose: 50 mg Trazodone HCl (Trazodone Hcl 100 Mg Tablet) 100 mg PO BEDTIME [facility] Last Admin: 05/24/23 21:12 Dose: 100 mg Vitamin D (Cholecalciferol (Vitamin D3) 25 Mcg Tablet) 25 mcg PO DAILY [facility] Last Admin: 05/25/23 08:48 Dose: 25 mcg Allergies Allergies Allergy/AdvReac Type Severity Reaction Status Date / Time abacavir [ABACAVIR] Allergy Severe HIVES Verified 05/09/23 13:34 hydrochlorothiazide Allergy Severe HIVES Verified 05/09/23 13:34 [HYDROCHLOROTHIAZIDE] ibuprofen [From MOTRIN] Allergy Severe HIVES Verified 05/09/23 13:34 Penicillins [PENICILLINS] Allergy Severe HIVES Verified 05/09/23 13:34 tenofovir [From VIREAD] Allergy Severe HIVES Verified 05/09/23 13:34 tomato [TOMATO] Allergy Severe HIVES Verified 05/09/23 13:34 zidovudine [From RETROVIR] Allergy Severe HIVES Verified 05/09/23 13:34 lactose [Lactose] AdvReac Mild DIARRHEA Verified 05/17/23 11:10 disoproxail Allergy Mild Unknown Uncoded 05/09/23 13:34 Assessment & Plan Assessment & Plan (1) Cognitive developmental delay: Status: Acute Code(s): F81.9 - Developmental disorder of scholastic skills, unspecified (2) Psychosis: Status: Acute Code(s): F29 - Unspecified psychosis not due to a substance or known physiological condition Assessment and Plan: Mental health changes /psychosis? not due to HIV or syphilis likely since taking medication regularly. Patient says syphilis titers are old and is inactive (3) Positive serological reaction for syphilis: Status: Acute Code(s): A53.0 - Latent syphilis, unspecified as early or late Plan 05/21- continue tx. 05/22 filed involuntary treatment as pt continues to present as labile, explosive and paranoid/some grandiose delusions and auditory hallucinations. 05/23 continues to present as labile, explosive with paranoid delusions and psychosis. will add depakote 500mg po BID for explosive, grandiose delusions. 05/24 no significant change. continue current medications. 05/25 continue current medications. Reason for continued inpatient stay Substantial Risk for: inability to function and rapid decompensation Time Spent With Patient Time: Total time managing care of this patient today ____ minutes.
[2023-05-25] MEDS: hydrOXYzine HCL 25 MG TABLET PO (17:44)
--- NOTE | 2023-05-25 17:52 | PC.NURSE ---
Pt stated that she vomited twice which was unwitnessed by staff. Pt then complained of chest discomfort. Vitals were assessed: 122/56, 77, 99%, 18. Pt denied any other symptoms or discomfort. Pt stated I feel like I'm making myself sick because I'm worried [facility] is going to take away my house and money which I've worked too hard for. Pt accepted PRN hydroxyzine for anxiety. Dr. Monaco notified.
[2023-05-25 20:55] VITALS: BP 119/60; PULSE 76; RESP 16; TEMP 36.8; O2SAT 100
[2023-05-25] MEDS: traZODone HCL 100 MG TABLET PO (20:59)
[2023-05-25] MEDS: Simethicone 80 MG TAB.CHEW PO (20:59)
[2023-05-25] MEDS: Atorvastatin Calcium 10 MG TABLET PO (20:59)
[2023-05-26] MEDS: Levothyroxine Sodium 75 MCG TABLET PO (06:49)
[2023-05-26] MEDS: Divalproex Sodium 250 MG TABLET.DR 750 MG PO ×2 (09:09→20:32)
[2023-05-26] MEDS: Multivitamin TABLET 1 TAB PO (09:10)
[2023-05-26] MEDS: Bictegrav/Emtricit/Tenofov Ala TABLET 1 TAB PO (09:10)
[2023-05-26] MEDS: oxyBUTYnin chloride ER 5 MG TAB.ER.24 PO (09:10)
[2023-05-26] MEDS: Calcium + Vitamin D 250 MG TABLET 500 MG PO ×2 (09:10→20:33)
[2023-05-26] MEDS: Cholecalciferol (Vitamin D3) 25 MCG TABLET PO (09:10)
[2023-05-26] MEDS: Psyllium seed 3.7 GM PACKET PO ×2 (09:11→20:33)
[2023-05-26] MEDS: Omeprazole 20 MG CAPSULE.DR PO (09:11)
[2023-05-26] MEDS: Folic Acid 1 MG TABLET PO (09:11)
[2023-05-26] MEDS: QUEtiapine Fumarate 200 MG TABLET PO ×3 (09:11→20:32)
[2023-05-26] MEDS: Mineral Oil/Petrolatum,White 106 GM Tube 1 APPL TOPICAL ×3 (09:16→20:38)
[2023-05-26] MEDS: Sodium Chloride 0.65 % Nasal 44 ML SPRBTL 1 SPRAY NOSTRIL-B ×2 (09:16→20:37)
--- NOTE | 2023-05-26 15:34 | PC.NURSE ---
Addendum entered by Geetha Almanza RN 05/26/23 18:16: Pt vomited again and is experiencing right lower quadrant pain. No distention or rigidity noted upon assessment. RN placed an order for hospitalist consult and reached out to Dr. Roberson, awaiting response. Original Note: Pt vomited on her bedroom floor, bathroom floor and in her toilet which was witnessed by staff. Vitals: 97.1 96% 89 120/68. Dr. Jacinda mata.
--- NOTE | 2023-05-26 16:02 | P.PNPSI_ITS ---
Subjective Subjective Date of Service: 05/26/23 Reason For Visit: Psychosis Interim History: Pt continues to repeatedly ask about discharge. She has been compliant with medications. She is guarded about her symptoms. Attended some groups. She is denying all symptoms. She believes she doesn't need to be here. Sleep is good. Denies hallucination and SI. Review of Systems Review of Systems No SOB No chest pain Pt denies pain Pt denies GI symptoms including constipation or diarrhea. Yes all other systems are reviewed and are negative Mental Status Exam Mental Status Exam Narrative: Appearance: wearing casual clothing, fair hygiene, in NAD Behavior: not cooperative Psychomotor: agitation of standing and yelling and leaving the interview room Speech: clear, normal rate/rhythm, spontaneous. increased amount and loudness. TP: circumstantial, some loose associations at times TC: demanding to leave, Mood: I'm fine Affect: labile, full range, hyper-intense SI: none expressed HI: none expressed VH/AH: hearing voices of staff from [facility], her son, although when asked directly denies hearing voices. Insight/judgment: impaired x 2. Memory/cog: alert, confused about month, not to situation. She is able to say that she is at [facility] and that this is the hospital. Diagnostics Vital Signs (24Hr): Vital Signs - 24 hr 05/25/23 20:55 Temperature 98.2 F Pulse Rate 76 Respiratory Rate 16 Blood Pressure 119/60 Pulse Oximetry 100 Oxygen Delivery Method Room Air BMI result Body Mass Index 30.1 Labs 05/16/23 14:52 05/17/23 08:54 Imaging Radiology Impressions: ITS Impressions Head CT 05/17/23 17:01 IMPRESSION: Unremarkable exam. Medications Medications Current Medications Acetaminophen (Acetaminophen 325 Mg Tablet) 650 mg PO Q6H PRN PRN Reason: Pain Last Admin: 05/20/23 14:17 Dose: 650 mg Al Hydroxide/Mg Hydroxide (Magnesium Hydrox/Alum Hydrox 30 Ml Oral.Susp) 30 ml PO Q6H PRN PRN Reason: Heartburn/Nausea Albuterol Sulfate (Albuterol Sulfate 90 Mcg 8 Gm Inhaler) 2 puff INHALE Q4H PRN PRN Reason: Wheezing Last Admin: 05/18/23 21:03 Dose: 2 puff Atorvastatin Calcium (Atorvastatin Calcium 10 Mg Tablet) 10 mg PO BEDTIME [facility] Last Admin: 05/25/23 20:59 Dose: 10 mg Bictegravir/Emtricitabine/Tenofovir (Bictegrav/Emtricit/Tenofov Ala Tablet) 1 tab PO DAILY [facility] Last Admin: 05/26/23 09:10 Dose: 1 tab Calcium Carbonate/Cholecalciferol (Calcium + Vitamin D 250 Mg Tablet) 500 mg PO BID [facility] Last Admin: 05/26/23 09:10 Dose: 500 mg Divalproex Sodium (Divalproex Sodium 250 Mg Tablet.) 750 mg PO BID [facility] Last Admin: 05/26/23 09:09 Dose: 750 mg Folic Acid (Folic Acid 1 Mg Tablet) 1 mg PO DAILY [facility] Last Admin: 05/26/23 09:11 Dose: 1 mg Hydrocortisone (Hydrocortisone 1 % Cream 28.35 Gm Tube) 1 appl TOPICAL BID PRN; Protocol PRN Reason: Rash Hydroxyzine HCl (Hydroxyzine Hcl 25 Mg Tablet) 25 mg PO Q6H PRN PRN Reason: Anxiety Last Admin: 05/25/23 17:44 Dose: 25 mg Lactase (Lactase Tablet) 2 tab PO QIDWMHS PRN PRN Reason: EATING DIARY Last Admin: 05/23/23 07:02 Dose: 2 tab Levothyroxine Sodium (Levothyroxine Sodium 75 Mcg Tablet) 75 mcg PO DAILY@0600 [facility] Last Admin: 05/26/23 06:49 Dose: 75 mcg Loperamide HCl (Loperamide Hcl 2 Mg Capsule) 2 mg PO QID PRN PRN Reason: Loose Stool Magnesium Hydroxide (Milk Of Magnesia 30 Ml Oral.Susp) 30 ml PO DAILY PRN PRN Reason: Constipation Multi-Ingred Cream/Lotion/Oil/Oint (Mineral Oil/Petrolatum,White 106 Gm Tube) 1 appl TOPICAL TID [facility]; Protocol Last Admin: 05/26/23 14:03 Dose: 1 appl Multivitamins/Vitamin C (Multivitamin Tablet) 1 tab PO DAILY [facility] Last Admin: 05/26/23 09:10 Dose: 1 tab Non-Formulary Medication (Famciclovir) 1,000 mg PO DAILY [facility] Omeprazole (Omeprazole 20 Mg Capsule.) 20 mg PO DAILY@0630 [facility] Last Admin: 05/26/23 09:11 Dose: 20 mg Oxybutynin Chloride (Oxybutynin Chloride Er 5 Mg Tab.Er.24) 5 mg PO DAILY [facility] Last Admin: 05/26/23 09:10 Dose: 5 mg Psyllium Hydrophilic Mucilloid (Psyllium Seed 3.7 Gm Packet) 3.7 gm PO BID [facility] Last Admin: 05/26/23 09:11 Dose: 3.7 gm Quetiapine Fumarate (Quetiapine Fumarate 200 Mg Tablet) 200 mg PO TID [facility] Last Admin: 05/26/23 14:01 Dose: 200 mg Senna/Docusate Sodium (Sennosides/Docusate Sodium Tablet) 2 tab PO MoWeFr@2100 [facility] Last Admin: 05/24/23 21:12 Dose: 2 tab Sertraline HCl (Sertraline Hcl 100 Mg Tablet) 100 mg PO DAILY [facility] Last Admin: 05/19/23 08:35 Dose: 100 mg Simethicone (Simethicone 80 Mg Tab.Chew) 80 mg PO BEDTIME [facility] Last Admin: 05/25/23 20:59 Dose: 80 mg Sodium Chloride (Sodium Chloride 0.65 % Nasal 44 Ml Sprbtl) 1 spray NOSTRIL-B BID [facility] Last Admin: 05/26/23 09:16 Dose: 1 spray Trazodone HCl (Trazodone Hcl 50 Mg Tablet) 50 mg PO BEDTIME MRX1 PRN PRN Reason: Insomnia Last Admin: 05/18/23 21:03 Dose: 50 mg Trazodone HCl (Trazodone Hcl 100 Mg Tablet) 100 mg PO BEDTIME [facility] Last Admin: 05/25/23 20:59 Dose: 100 mg Vitamin D (Cholecalciferol (Vitamin D3) 25 Mcg Tablet) 25 mcg PO DAILY [facility] Last Admin: 05/26/23 09:10 Dose: 25 mcg Allergies Allergies Allergy/AdvReac Type Severity Reaction Status Date / Time abacavir [ABACAVIR] Allergy Severe HIVES Verified 05/09/23 13:34 hydrochlorothiazide Allergy Severe HIVES Verified 05/09/23 13:34 [HYDROCHLOROTHIAZIDE] ibuprofen [From MOTRIN] Allergy Severe HIVES Verified 05/09/23 13:34 Penicillins [PENICILLINS] Allergy Severe HIVES Verified 05/09/23 13:34 tenofovir [From VIREAD] Allergy Severe HIVES Verified 05/09/23 13:34 tomato [TOMATO] Allergy Severe HIVES Verified 05/09/23 13:34 zidovudine [From RETROVIR] Allergy Severe HIVES Verified 05/09/23 13:34 lactose [Lactose] AdvReac Mild DIARRHEA Verified 05/17/23 11:10 disoproxail Allergy Mild Unknown Uncoded 05/09/23 13:34 Assessment & Plan Assessment & Plan (1) Cognitive developmental delay: Status: Acute Code(s): F81.9 - Developmental disorder of scholastic skills, unspecified (2) Psychosis: Status: Acute Code(s): F29 - Unspecified psychosis not due to a substance or known physiological condition Assessment and Plan: Mental health changes /psychosis? not due to HIV or syphilis likely since taking medication regularly. Patient says syphilis titers are old and is inactive (3) Positive serological reaction for syphilis: Status: Acute Code(s): A53.0 - Latent syphilis, unspecified as early or late Plan 05/21- continue tx. 05/22 filed involuntary treatment as pt continues to present as labile, explosive and paranoid/some grandiose delusions and auditory hallucinations. 05/23 continues to present as labile, explosive with paranoid delusions and psychosis. will add depakote 500mg po BID for explosive, grandiose delusions. 05/24 no significant change. continue current medications. 05/25 continue current medications. 05/26: Continue current management and treatment plan. Reason for continued inpatient stay Substantial Risk for: inability to function and rapid decompensation Time Spent With Patient Time: Total time managing care of this patient today ____ minutes.
[2023-05-26 19:32] LABS: Appearance Urine Clear; Color Urine Yellow; Glucose Urine UA Negative (Negative); Leukocyte Esterase Urine Negative (Negative); Nitrite Urine Negative (Negative); PH 6.5 (5.0-9.0); Urine Blood Negative (Negative); Urine Ketones Trace mg/dL (Negative); Urine Protein Negative (Neg-Trace)
[2023-05-26 19:42] VITALS: BP 119/69; PULSE 83; RESP 18; TEMP 36.1; O2SAT 99
[2023-05-26] MEDS: Atorvastatin Calcium 10 MG TABLET PO (20:32)
[2023-05-26] MEDS: Simethicone 80 MG TAB.CHEW PO (20:33)
[2023-05-26] MEDS: traZODone HCL 100 MG TABLET PO (20:33)
--- NOTE | 2023-05-26 20:48 | PM.EVENT ---
Event Note Date of Service: 05/26/23 Event Note: Patient is a 62-year-old female with a PMH significant for HIV, syphilis, cirrhosis, hepatitis-C, PTSD, and unspecified psychosis who was seen for evaluation of nausea, vomiting, abdominal pain, and urinary incontinence. Patient states she has been having lower right quadrant abdominal pain since . Patient states pain is sharp like a knife, intermittent, lasts 10-20 minutes at a time and then goes away. Patient is unable to further clarify any exacerbating or alleviating factors, though states she tends to walk around the unit until the pain goes away. Not clearly associated with eating. Patient also had episodes of vomiting both last night and again this afternoon. Patient states feels ?gassy? also has been experiencing episodes of urinary incontinence since yesterday. Patient does take oxybutynin for overactive bladder, but states she has not experienced similar symptoms before. Denies fever, chills. No shortness of breath. Denies cough. No dysuria. Physical examination relatively benign with only moderate tenderness to right lower quadrant. No CVA tenderness. Rovsing's sign negative. Obturator sign negative. Psoas sign negative. Low suspicion for appendicitis or gastroenteritis. Will treat for now with Zofran, Gas-X, and will order a urinalysis for potential UTI. Thank you for allowing us to participate in the care of this patient. Signing off at this time. Please re-consult if any acute complaints or issues arise. Time Spent With Patient Time: Total time managing care of this patient today ____ minutes.
[2023-05-27] MEDS: Levothyroxine Sodium 75 MCG TABLET PO (07:30)
[2023-05-27 07:35] VITALS: BP 118/63; PULSE 84; RESP 16; TEMP 36.1; O2SAT 100
[2023-05-27] MEDS: Omeprazole 20 MG CAPSULE.DR PO (08:21)
[2023-05-27] MEDS: Multivitamin TABLET 1 TAB PO (08:21)
[2023-05-27] MEDS: Divalproex Sodium 250 MG TABLET.DR 750 MG PO ×2 (08:21→22:28)
[2023-05-27] MEDS: oxyBUTYnin chloride ER 5 MG TAB.ER.24 PO (08:22)
[2023-05-27] MEDS: Calcium + Vitamin D 250 MG TABLET 500 MG PO ×2 (08:22→22:29)
[2023-05-27] MEDS: QUEtiapine Fumarate 200 MG TABLET PO ×3 (08:23→22:28)
[2023-05-27] MEDS: Folic Acid 1 MG TABLET PO (08:23)
[2023-05-27] MEDS: Cholecalciferol (Vitamin D3) 25 MCG TABLET PO (08:23)
[2023-05-27] MEDS: Bictegrav/Emtricit/Tenofov Ala TABLET 1 TAB PO (08:23)
[2023-05-27] MEDS: Psyllium seed 3.7 GM PACKET PO ×2 (08:23→22:30)
[2023-05-27 09:51] LABS: RPR Quantitative Non-Reactive (Nonreactive); T.Pallidum Particle Agg Test Inconclusive (Nonreactive)
[2023-05-27] MEDS: Ondansetron ODT 4 MG TAB.RAPDIS TRANSLINGU ×3 (10:41→21:15)
--- NOTE | 2023-05-27 12:51 | PM.EVENT ---
Event Note Date of Service: 05/27/23 Event Note: syphilis titer NR HIV CD4 count 782 and viral load 123 no infectious explanation for psychosis seen Time Spent With Patient Time: Total time managing care of this patient today ____ minutes.
--- NOTE | 2023-05-27 14:30 | P.PNPSI_ITS ---
Subjective Subjective Date of Service: 05/27/23 Reason For Visit: Psychosis Interim History: irritable. upset as MD tells her she will not be discharged from the hospital today. upi can leave now, thank you. per staff, attending to ADLs. + grps. asking for D/C. worried about losing housing. vomited, RLQ pain. hospitalist consult pending. U/A NEG. court 06/04 2 pm. Mental Status Exam Mental Status Exam Narrative: Appearance: wearing casual clothing, fair hygiene, in NAD Behavior: minimally cooperative Psychomotor: no PMA/PMR Speech: clear, normal rate/rhythm, spontaneous. increased amount and loudness. TP: less disorganized TC: requesting discharge Mood: not assessed Affect: labile, constricted, hyper-intense SI: none expressed HI: none expressed VH/AH: none expressed Insight/judgment: impaired x 2. Diagnostics Vital Signs (24Hr): Vital Signs - 24 hr 05/26/23 19:42 05/27/23 07:35 Temperature 97.0 F 97.0 F Pulse Rate 83 84 Respiratory Rate 18 16 Blood Pressure 119/69 118/63 Pulse Oximetry 99 100 Oxygen Delivery Method Room Air Room Air BMI result Body Mass Index 30.1 Labs 05/16/23 14:52 05/17/23 08:54 Labs: Laboratory Results - last 48 hr 05/17/23 05/26/23 20:15 19:17 Urine Color Yellow Urine Appearance Clear Urine pH 6.5 Ur Specific [place] 1.020 Urine Protein Negative Urine Glucose (UA) Negative Urine Ketones Trace Urine Blood Negative Urine Nitrite Negative Ur Leukocyte Esterase Negative RPR Non-Reactive T.pallidum Particle Agg Inconclusive Imaging Radiology Impressions: ITS Impressions Head CT 05/17/23 17:01 IMPRESSION: Unremarkable exam. Medications Medications Current Medications Acetaminophen (Acetaminophen 325 Mg Tablet) 650 mg PO Q6H PRN PRN Reason: Pain Last Admin: 05/20/23 14:17 Dose: 650 mg Al Hydroxide/Mg Hydroxide (Magnesium Hydrox/Alum Hydrox 30 Ml Oral.Susp) 30 ml PO Q6H PRN PRN Reason: Heartburn/Nausea Albuterol Sulfate (Albuterol Sulfate 90 Mcg 8 Gm Inhaler) 2 puff INHALE Q4H PRN PRN Reason: Wheezing Last Admin: 05/18/23 21:03 Dose: 2 puff Atorvastatin Calcium (Atorvastatin Calcium 10 Mg Tablet) 10 mg PO BEDTIME [facility] Last Admin: 05/26/23 20:32 Dose: 10 mg Bictegravir/Emtricitabine/Tenofovir (Bictegrav/Emtricit/Tenofov Ala Tablet) 1 tab PO DAILY [facility] Last Admin: 05/27/23 08:23 Dose: 1 tab Calcium Carbonate/Cholecalciferol (Calcium + Vitamin D 250 Mg Tablet) 500 mg PO BID [facility] Last Admin: 05/27/23 08:22 Dose: 500 mg Divalproex Sodium (Divalproex Sodium 250 Mg Tablet.) 750 mg PO BID [facility] Last Admin: 05/27/23 08:21 Dose: 750 mg Folic Acid (Folic Acid 1 Mg Tablet) 1 mg PO DAILY [facility] Last Admin: 05/27/23 08:23 Dose: 1 mg Hydrocortisone (Hydrocortisone 1 % Cream 28.35 Gm Tube) 1 appl TOPICAL BID PRN; Protocol PRN Reason: Rash Hydroxyzine HCl (Hydroxyzine Hcl 25 Mg Tablet) 25 mg PO Q6H PRN PRN Reason: Anxiety Last Admin: 05/25/23 17:44 Dose: 25 mg Lactase (Lactase Tablet) 2 tab PO QIDWMHS PRN PRN Reason: EATING DIARY Last Admin: 05/23/23 07:02 Dose: 2 tab Levothyroxine Sodium (Levothyroxine Sodium 75 Mcg Tablet) 75 mcg PO DAILY@0600 [facility] Last Admin: 05/27/23 07:30 Dose: 75 mcg Loperamide HCl (Loperamide Hcl 2 Mg Capsule) 2 mg PO QID PRN PRN Reason: Loose Stool Magnesium Hydroxide (Milk Of Magnesia 30 Ml Oral.Susp) 30 ml PO DAILY PRN PRN Reason: Constipation Multi-Ingred Cream/Lotion/Oil/Oint (Mineral Oil/Petrolatum,White 106 Gm Tube) 1 appl TOPICAL TID [facility]; Protocol Last Admin: 05/27/23 08:49 Dose: Not Given Multivitamins/Vitamin C (Multivitamin Tablet) 1 tab PO DAILY [facility] Last Admin: 05/27/23 08:21 Dose: 1 tab Non-Formulary Medication (Famciclovir) 1,000 mg PO DAILY [facility] Omeprazole (Omeprazole 20 Mg Capsule.) 20 mg PO DAILY@0630 [facility] Last Admin: 05/27/23 08:21 Dose: 20 mg Ondansetron HCl (Ondansetron Odt 4 Mg Tab.Rapdis) 4 mg TRANSLINGU Q6H PRN PRN Reason: Nausea and Vomiting Last Admin: 05/27/23 10:41 Dose: 4 mg Oxybutynin Chloride (Oxybutynin Chloride Er 5 Mg Tab.Er.24) 5 mg PO DAILY [facility] Last Admin: 05/27/23 08:22 Dose: 5 mg Psyllium Hydrophilic Mucilloid (Psyllium Seed 3.7 Gm Packet) 3.7 gm PO BID [facility] Last Admin: 05/27/23 08:23 Dose: 3.7 gm Quetiapine Fumarate (Quetiapine Fumarate 200 Mg Tablet) 200 mg PO TID [facility] Last Admin: 05/27/23 08:23 Dose: 200 mg Senna/Docusate Sodium (Sennosides/Docusate Sodium Tablet) 2 tab PO MoWeFr@2100 [facility] Last Admin: 05/24/23 21:12 Dose: 2 tab Sertraline HCl (Sertraline Hcl 100 Mg Tablet) 100 mg PO DAILY [facility] Last Admin: 05/19/23 08:35 Dose: 100 mg Simethicone (Simethicone 80 Mg Tab.Chew) 80 mg PO BEDTIME [facility] Last Admin: 05/26/23 20:33 Dose: 80 mg Simethicone (Simethicone 80 Mg Tab.Chew) 80 mg PO QIDWMHS PRN PRN Reason: Gas Sodium Chloride (Sodium Chloride 0.65 % Nasal 44 Ml Sprbtl) 1 spray NOSTRIL-B BID [facility] Last Admin: 05/27/23 08:49 Dose: Not Given Trazodone HCl (Trazodone Hcl 50 Mg Tablet) 50 mg PO BEDTIME MRX1 PRN PRN Reason: Insomnia Last Admin: 05/18/23 21:03 Dose: 50 mg Trazodone HCl (Trazodone Hcl 100 Mg Tablet) 100 mg PO BEDTIME [facility] Last Admin: 05/26/23 20:33 Dose: 100 mg Vitamin D (Cholecalciferol (Vitamin D3) 25 Mcg Tablet) 25 mcg PO DAILY [facility] Last Admin: 05/27/23 08:23 Dose: 25 mcg Allergies Allergies Allergy/AdvReac Type Severity Reaction Status Date / Time abacavir [ABACAVIR] Allergy Severe HIVES Verified 05/09/23 13:34 hydrochlorothiazide Allergy Severe HIVES Verified 05/09/23 13:34 [HYDROCHLOROTHIAZIDE] ibuprofen [From MOTRIN] Allergy Severe HIVES Verified 05/09/23 13:34 Penicillins [PENICILLINS] Allergy Severe HIVES Verified 05/09/23 13:34 tenofovir [From VIREAD] Allergy Severe HIVES Verified 05/09/23 13:34 tomato [TOMATO] Allergy Severe HIVES Verified 05/09/23 13:34 zidovudine [From RETROVIR] Allergy Severe HIVES Verified 05/09/23 13:34 lactose [Lactose] AdvReac Mild DIARRHEA Verified 05/17/23 11:10 disoproxail Allergy Mild Unknown Uncoded 05/09/23 13:34 Assessment & Plan Assessment & Plan (1) Cognitive developmental delay: Status: Acute Code(s): F81.9 - Developmental disorder of scholastic skills, unspecified (2) Psychosis: Status: Acute Code(s): F29 - Unspecified psychosis not due to a substance or known physiological condition Assessment and Plan: Mental health changes /psychosis? not due to HIV or syphilis likely since taking medication regularly. Patient says syphilis titers are old and is inactive (3) Positive serological reaction for syphilis: Status: Acute Code(s): A53.0 - Latent syphilis, unspecified as early or late Plan 05/21- continue tx. 05/22 filed involuntary treatment as pt continues to present as labile, explosive and paranoid/some grandiose delusions and auditory hallucinations. 05/23 continues to present as labile, explosive with paranoid delusions and psychosis. will add depakote 500mg po BID for explosive, grandiose delusions. 05/24 no significant change. continue current medications. 05/25 continue current medications. 05/26: Continue current management and treatment plan. 05/27: per ID, no infectious etiology for psychosis evident. check VPA and ammonia tomorrow. otherwise continue current mgmt. hearing scheduled for 06/04. Reason for continued inpatient stay Substantial Risk for: inability to function and rapid decompensation Time Spent With Patient Time: Total time managing care of this patient today __25__ minutes.
--- NOTE | 2023-05-27 18:11 | PC.NURSE ---
Pt has been vomiting throughout the day. When RN went to assess pt at 1800, pt stated she fell in the bathroom but did not hit her head. Pt reports feeling dizzy. Vitals assessed: 115/[address] Tee aware. Placing pt on 5 minute checks for safety.
--- NOTE | 2023-05-27 18:56 | PC.NURSE ---
Pt vomited again after dinner. Temp 97.0. Dr. Nay mata.
[2023-05-27 19:54] VITALS: BP 150/74; PULSE 82; RESP 18; TEMP 36; O2SAT 100
[2023-05-27 21:30] VITALS: BP 107/59; PULSE 79; TEMP 36.5; O2SAT 97
[2023-05-27] MEDS: traZODone HCL 100 MG TABLET PO (22:29)
[2023-05-27] MEDS: Sennosides/Docusate Sodium TABLET 2 TAB PO (22:29)
[2023-05-27] MEDS: Simethicone 80 MG TAB.CHEW PO (22:30)
[2023-05-27] MEDS: Atorvastatin Calcium 10 MG TABLET PO (22:30)
[2023-05-27] MEDS: Mineral Oil/Petrolatum,White 106 GM Tube 1 APPL TOPICAL (22:37)
[2023-05-27] MEDS: Sodium Chloride 0.65 % Nasal 44 ML SPRBTL 1 SPRAY NOSTRIL-B (22:37)
--- NOTE | 2023-05-28 06:56 | PC.NURSE ---
Pt unable to be woken x2 for 0600 levothyroxine. Pt currently asleep and snoring.
[2023-05-28 07:55] VITALS: BP 129/73; PULSE 81; RESP 16; TEMP 36; O2SAT 99
[2023-05-28] MEDS: Ondansetron ODT 4 MG TAB.RAPDIS TRANSLINGU (08:26)
[2023-05-28] MEDS: Levothyroxine Sodium 75 MCG TABLET PO (08:31)
[2023-05-28 08:36] LABS: Ammonia 38 umol/L (13-55)
[2023-05-28 08:43] LABS: Valproate 137.2 mcg/mL (50.0-100.0)
[2023-05-28] MEDS: Multivitamin TABLET 1 TAB PO (08:59)
[2023-05-28] MEDS: oxyBUTYnin chloride ER 5 MG TAB.ER.24 PO (08:59)
[2023-05-28] MEDS: Cholecalciferol (Vitamin D3) 25 MCG TABLET PO (08:59)
[2023-05-28] MEDS: Calcium + Vitamin D 250 MG TABLET 500 MG PO ×2 (09:00→20:41)
[2023-05-28] MEDS: Mineral Oil/Petrolatum,White 106 GM Tube 1 APPL TOPICAL ×2 (09:04→20:50)
[2023-05-28] MEDS: Omeprazole 20 MG CAPSULE.DR PO (09:04)
[2023-05-28] MEDS: Sodium Chloride 0.65 % Nasal 44 ML SPRBTL 1 SPRAY NOSTRIL-B ×2 (09:04→20:50)
[2023-05-28] MEDS: Bictegrav/Emtricit/Tenofov Ala TABLET 1 TAB PO (09:05)
[2023-05-28] MEDS: Folic Acid 1 MG TABLET PO (09:05)
[2023-05-28] MEDS: QUEtiapine Fumarate 200 MG TABLET PO ×3 (09:05→20:41)
--- NOTE | 2023-05-28 16:07 | P.PNPSI_ITS ---
Subjective Subjective Date of Service: 05/28/23 Reason For Visit: Psychosis Interim History: labile, irritable. soon yelling at MD about not being discharged. denies hearing AH since her day of admission. per staff, remains on Q5 min checks. reported a fall yesterday, unwitnessed. dep 0, anx 5. attending to ADLs. w/drawn. continues periodic vomiting. VPA level elevated. Mental Status Exam Mental Status Exam Narrative: Appearance: wearing casual clothing, fair hygiene, in NAD Behavior: minimally cooperative Psychomotor: no PMA/PMR Speech: clear, normal rate/rhythm, spontaneous. increased amount and loudness. TP: less disorganized TC: requesting discharge Mood: not assessed Affect: labile, constricted, hyper-intense SI: none expressed HI: none expressed VH/AH: denies since day of admission Insight/judgment: impaired x 2. Diagnostics Vital Signs (24Hr): Vital Signs - 24 hr 05/27/23 19:54 05/27/23 21:30 05/28/23 07:55 Temperature 96.8 F 97.7 F 96.8 F Pulse Rate 82 79 81 Respiratory Rate 18 16 Blood Pressure 150/74 H 107/59 L 129/73 Pulse Oximetry 100 97 99 Oxygen Delivery Method Room Air Room Air Room Air BMI result Body Mass Index 30.1 Labs 05/16/23 14:52 05/17/23 08:54 Labs: Laboratory Results - last 48 hr 05/17/23 05/26/23 05/28/23 20:15 19:17 08:19 Ammonia 38 Urine Color Yellow Urine Appearance Clear Urine pH 6.5 Ur Specific [place] 1.020 Urine Protein Negative Urine Glucose (UA) Negative Urine Ketones Trace Urine Blood Negative Urine Nitrite Negative Ur Leukocyte Esterase Negative Valproic Acid 137.2 H* RPR Non-Reactive T.pallidum Particle Agg Inconclusive Imaging Radiology Impressions: ITS Impressions Head CT 05/17/23 17:01 IMPRESSION: Unremarkable exam. Medications Medications Current Medications Acetaminophen (Acetaminophen 325 Mg Tablet) 650 mg PO Q6H PRN PRN Reason: Pain Last Admin: 05/20/23 14:17 Dose: 650 mg Al Hydroxide/Mg Hydroxide (Magnesium Hydrox/Alum Hydrox 30 Ml Oral.Susp) 30 ml PO Q6H PRN PRN Reason: Heartburn/Nausea Albuterol Sulfate (Albuterol Sulfate 90 Mcg 8 Gm Inhaler) 2 puff INHALE Q4H PRN PRN Reason: Wheezing Last Admin: 05/18/23 21:03 Dose: 2 puff Atorvastatin Calcium (Atorvastatin Calcium 10 Mg Tablet) 10 mg PO BEDTIME [facility] Last Admin: 05/27/23 22:30 Dose: 10 mg Bictegravir/Emtricitabine/Tenofovir (Bictegrav/Emtricit/Tenofov Ala Tablet) 1 tab PO DAILY [facility] Last Admin: 05/28/23 09:05 Dose: 1 tab Calcium Carbonate/Cholecalciferol (Calcium + Vitamin D 250 Mg Tablet) 500 mg PO BID [facility] Last Admin: 05/28/23 09:00 Dose: 500 mg Divalproex Sodium (Divalproex Sodium 500 Mg Tablet.) 500 mg PO BID [facility] Folic Acid (Folic Acid 1 Mg Tablet) 1 mg PO DAILY [facility] Last Admin: 05/28/23 09:05 Dose: 1 mg Hydrocortisone (Hydrocortisone 1 % Cream 28.35 Gm Tube) 1 appl TOPICAL BID PRN; Protocol PRN Reason: Rash Hydroxyzine HCl (Hydroxyzine Hcl 25 Mg Tablet) 25 mg PO Q6H PRN PRN Reason: Anxiety Last Admin: 05/25/23 17:44 Dose: 25 mg Lactase (Lactase Tablet) 2 tab PO QIDWMHS PRN PRN Reason: EATING DIARY Last Admin: 05/23/23 07:02 Dose: 2 tab Levothyroxine Sodium (Levothyroxine Sodium 75 Mcg Tablet) 75 mcg PO DAILY@0600 [facility] Last Admin: 05/28/23 08:31 Dose: 75 mcg Loperamide HCl (Loperamide Hcl 2 Mg Capsule) 2 mg PO QID PRN PRN Reason: Loose Stool Magnesium Hydroxide (Milk Of Magnesia 30 Ml Oral.Susp) 30 ml PO DAILY PRN PRN Reason: Constipation Multi-Ingred Cream/Lotion/Oil/Oint (Mineral Oil/Petrolatum,White 106 Gm Tube) 1 appl TOPICAL TID [facility]; Protocol Last Admin: 05/28/23 14:14 Dose: Not Given Multivitamins/Vitamin C (Multivitamin Tablet) 1 tab PO DAILY [facility] Last Admin: 05/28/23 08:59 Dose: 1 tab Omeprazole (Omeprazole 20 Mg Capsule.Dr) 20 mg PO DAILY@0630 [facility] Last Admin: 05/28/23 09:04 Dose: 20 mg Ondansetron HCl (Ondansetron Odt 4 Mg Tab.Rapdis) 4 mg TRANSLINGU Q6H PRN PRN Reason: Nausea and Vomiting Last Admin: 05/28/23 08:26 Dose: 4 mg Oxybutynin Chloride (Oxybutynin Chloride Er 5 Mg Tab.Er.24) 5 mg PO DAILY [facility] Last Admin: 05/28/23 08:59 Dose: 5 mg Psyllium Hydrophilic Mucilloid (Psyllium Seed 3.7 Gm Packet) 3.7 gm PO BID [facility] Last Admin: 05/28/23 09:05 Dose: Not Given Quetiapine Fumarate (Quetiapine Fumarate 200 Mg Tablet) 200 mg PO TID [facility] Last Admin: 05/28/23 14:08 Dose: 200 mg Senna/Docusate Sodium (Sennosides/Docusate Sodium Tablet) 2 tab PO MoWeFr@2100 [facility] Last Admin: 05/27/23 22:29 Dose: 2 tab Sertraline HCl (Sertraline Hcl 100 Mg Tablet) 100 mg PO DAILY [facility] Last Admin: 05/19/23 08:35 Dose: 100 mg Simethicone (Simethicone 80 Mg Tab.Chew) 80 mg PO BEDTIME [facility] Last Admin: 05/27/23 22:30 Dose: 80 mg Simethicone (Simethicone 80 Mg Tab.Chew) 80 mg PO QIDWMHS PRN PRN Reason: Gas Sodium Chloride (Sodium Chloride 0.65 % Nasal 44 Ml Sprbtl) 1 spray NOSTRIL-B BID [facility] Last Admin: 05/28/23 09:04 Dose: 1 spray Trazodone HCl (Trazodone Hcl 50 Mg Tablet) 50 mg PO BEDTIME MRX1 PRN PRN Reason: Insomnia Last Admin: 05/18/23 21:03 Dose: 50 mg Trazodone HCl (Trazodone Hcl 100 Mg Tablet) 100 mg PO BEDTIME [facility] Last Admin: 05/27/23 22:29 Dose: 100 mg Vitamin D (Cholecalciferol (Vitamin D3) 25 Mcg Tablet) 25 mcg PO DAILY [facility] Last Admin: 05/28/23 08:59 Dose: 25 mcg Allergies Allergies Allergy/AdvReac Type Severity Reaction Status Date / Time abacavir [ABACAVIR] Allergy Severe HIVES Verified 05/09/23 13:34 hydrochlorothiazide Allergy Severe HIVES Verified 05/09/23 13:34 [HYDROCHLOROTHIAZIDE] ibuprofen [From MOTRIN] Allergy Severe HIVES Verified 05/09/23 13:34 Penicillins [PENICILLINS] Allergy Severe HIVES Verified 05/09/23 13:34 tenofovir [From VIREAD] Allergy Severe HIVES Verified 05/09/23 13:34 tomato [TOMATO] Allergy Severe HIVES Verified 05/09/23 13:34 zidovudine [From RETROVIR] Allergy Severe HIVES Verified 05/09/23 13:34 lactose [Lactose] AdvReac Mild DIARRHEA Verified 05/17/23 11:10 disoproxail Allergy Mild Unknown Uncoded 05/09/23 13:34 Assessment & Plan Assessment & Plan (1) Cognitive developmental delay: Status: Acute Code(s): F81.9 - Developmental disorder of scholastic skills, unspecified (2) Psychosis: Status: Acute Code(s): F29 - Unspecified psychosis not due to a substance or known physiological condition Assessment and Plan: Mental health changes /psychosis? not due to HIV or syphilis likely since taking medication regularly. Patient says syphilis titers are old and is inactive (3) Positive serological reaction for syphilis: Status: Acute Code(s): A53.0 - Latent syphilis, unspecified as early or late Plan 05/21- continue tx. 05/22 filed involuntary treatment as pt continues to present as labile, explosive and paranoid/some grandiose delusions and auditory hallucinations. 05/23 continues to present as labile, explosive with paranoid delusions and psychosis. will add depakote 500mg po BID for explosive, grandiose delusions. 05/24 no significant change. continue current medications. 05/25 continue current medications. 05/26: Continue current management and treatment plan. 05/27: per ID, no infectious etiology for psychosis evident. check VPA and ammonia tomorrow. otherwise continue current mgmt. hearing scheduled for 06/04. 05/28: VPA elevated at 137.2. hold dosing for 24H, decrease dosing from 750 BID to 500 BID. check level 05/29 morning. recent vomiting likely due to elevated VPA level. mood remains reactive and unstable even with supra- therapeutic VPA level, T/C adding a second mood stabilizer. Reason for continued inpatient stay Substantial Risk for: inability to function and rapid decompensation Time Spent With Patient Time: Total time managing care of this patient today __25__ minutes.
[2023-05-28 20:39] VITALS: BP 125/65; PULSE 86; RESP 17; TEMP 36; O2SAT 98
[2023-05-28] MEDS: Atorvastatin Calcium 10 MG TABLET PO (20:40)
[2023-05-28] MEDS: traZODone HCL 100 MG TABLET PO (20:40)
[2023-05-28] MEDS: Simethicone 80 MG TAB.CHEW PO (20:41)
[2023-05-29] MEDS: Levothyroxine Sodium 75 MCG TABLET PO (06:37)
[2023-05-29 08:35] VITALS: BP 147/70; PULSE 94; RESP 20; TEMP 36.2; O2SAT 97
[2023-05-29] MEDS: oxyBUTYnin chloride ER 5 MG TAB.ER.24 PO (08:39)
[2023-05-29] MEDS: QUEtiapine Fumarate 200 MG TABLET PO ×3 (08:39→20:43)
[2023-05-29] MEDS: Omeprazole 20 MG CAPSULE.DR PO (08:39)
[2023-05-29] MEDS: Calcium + Vitamin D 250 MG TABLET 500 MG PO ×2 (08:39→20:41)
[2023-05-29] MEDS: Multivitamin TABLET 1 TAB PO (08:40)
[2023-05-29] MEDS: Folic Acid 1 MG TABLET PO (08:40)
[2023-05-29] MEDS: Bictegrav/Emtricit/Tenofov Ala TABLET 1 TAB PO (08:40)
[2023-05-29] MEDS: Cholecalciferol (Vitamin D3) 25 MCG TABLET PO (08:40)
[2023-05-29] MEDS: Psyllium seed 3.7 GM PACKET PO ×2 (08:44→20:41)
[2023-05-29] MEDS: Acetaminophen 325 MG TABLET 650 MG PO (09:33)
[2023-05-29 09:44] LABS: Valproate 47.4 mcg/mL (50.0-100.0)
--- NOTE | 2023-05-29 09:57 | P.PNPSI_ITS ---
Subjective Subjective Date of Service: 05/29/23 Reason For Visit: Psychosis Subjective Notes: Section 7 Interim History: Pt denies that staff from are calling her directly to her ear. She presents as less labile, calmer. She denies SI/HI. She asks when she will be able to be discharged. She slept through the night. Depakote level going down, resume at lower dose. Medication Compliance: Yes Review of Systems Review of Systems No SOB No chest pain Pt denies pain Pt denies GI symptoms including constipation or diarrhea. Yes all other systems are reviewed and are negative Mental Status Exam Mental Status Exam Narrative: Appearance: wearing casual clothing, fair hygiene, in NAD Behavior: minimally cooperative Psychomotor: no PMA/PMR Speech: clear, normal rate/rhythm, spontaneous. increased amount and loudness. TP: less disorganized TC: requesting discharge Mood: not assessed Affect: less labile SI: none expressed HI: none expressed VH/AH:less ideas of staff from calling her directly to her ear. Insight/judgment: impaired x 2. Diagnostics Vital Signs (24Hr): Vital Signs - 24 hr 05/28/23 20:39 05/29/23 08:35 Temperature 96.8 F 97.1 F Pulse Rate 86 94 Respiratory Rate 17 20 Blood Pressure 125/65 147/70 H Pulse Oximetry 98 97 Oxygen Delivery Method Room Air Room Air BMI result Body Mass Index 30.1 Labs 05/16/23 14:52 05/17/23 08:54 Labs: Laboratory Results - last 48 hr 05/28/23 05/29/23 08:19 09:11 Ammonia 38 Valproic Acid 137.2 H* 47.4 L Imaging Radiology Impressions: ITS Impressions Head CT 05/17/23 17:01 IMPRESSION: Unremarkable exam. Medications Medications Current Medications Acetaminophen (Acetaminophen 325 Mg Tablet) 650 mg PO Q6H PRN PRN Reason: Pain Last Admin: 05/29/23 09:33 Dose: 650 mg Al Hydroxide/Mg Hydroxide (Magnesium Hydrox/Alum Hydrox 30 Ml Oral.Susp) 30 ml PO Q6H PRN PRN Reason: Heartburn/Nausea Albuterol Sulfate (Albuterol Sulfate 90 Mcg 8 Gm Inhaler) 2 puff INHALE Q4H PRN PRN Reason: Wheezing Last Admin: 05/18/23 21:03 Dose: 2 puff Atorvastatin Calcium (Atorvastatin Calcium 10 Mg Tablet) 10 mg PO BEDTIME RENATO Last Admin: 05/28/23 20:40 Dose: 10 mg Bictegravir/Emtricitabine/Tenofovir (Bictegrav/Emtricit/Tenofov Ala Tablet) 1 tab PO DAILY [facility] [place] Last Admin: 05/29/23 08:40 Dose: 1 tab Calcium Carbonate/Cholecalciferol (Calcium + Vitamin D 250 Mg Tablet) 500 mg PO BID [facility] [place] Last Admin: 05/29/23 08:39 Dose: 500 mg Divalproex Sodium (Divalproex Sodium 500 Mg Tablet.) 500 mg PO BID [facility] [place] Folic Acid (Folic Acid 1 Mg Tablet) 1 mg PO DAILY [facility] [place] Last Admin: 05/29/23 08:40 Dose: 1 mg Hydrocortisone (Hydrocortisone 1 % Cream 28.35 Gm Tube) 1 appl TOPICAL BID PRN; Protocol PRN Reason: Rash Hydroxyzine HCl (Hydroxyzine Hcl 25 Mg Tablet) 25 mg PO Q6H PRN PRN Reason: Anxiety Last Admin: 05/25/23 17:44 Dose: 25 mg Lactase (Lactase Tablet) 2 tab PO QIDWMHS PRN PRN Reason: EATING DIARY Last Admin: 05/23/23 07:02 Dose: 2 tab Levothyroxine Sodium (Levothyroxine Sodium 75 Mcg Tablet) 75 mcg PO DAILY@0600 [facility] [place] Last Admin: 05/29/23 06:37 Dose: 75 mcg Loperamide HCl (Loperamide Hcl 2 Mg Capsule) 2 mg PO QID PRN PRN Reason: Loose Stool Magnesium Hydroxide (Milk Of Magnesia 30 Ml Oral.Susp) 30 ml PO DAILY PRN PRN Reason: Constipation Multi-Ingred Cream/Lotion/Oil/Oint (Mineral Oil/Petrolatum,White 106 Gm Tube) 1 appl TOPICAL TID [facility] [place]; Protocol Last Admin: 05/28/23 20:50 Dose: 1 appl Multivitamins/Vitamin C (Multivitamin Tablet) 1 tab PO DAILY [facility] [place] Last Admin: 05/29/23 08:40 Dose: 1 tab Omeprazole (Omeprazole 20 Mg Capsule.) 20 mg PO DAILY@0630 [facility] [place] Last Admin: 05/29/23 08:39 Dose: 20 mg Ondansetron HCl (Ondansetron Odt 4 Mg Tab.Rapdis) 4 mg TRANSLINGU Q6H PRN PRN Reason: Nausea and Vomiting Last Admin: 05/28/23 08:26 Dose: 4 mg Oxybutynin Chloride (Oxybutynin Chloride Er 5 Mg Tab.Er.24) 5 mg PO DAILY [facility] [place] Last Admin: 05/29/23 08:39 Dose: 5 mg Psyllium Hydrophilic Mucilloid (Psyllium Seed 3.7 Gm Packet) 3.7 gm PO BID [facility] [place] Last Admin: 05/29/23 08:44 Dose: 3.7 gm Quetiapine Fumarate (Quetiapine Fumarate 200 Mg Tablet) 200 mg PO TID [facility] [place] Last Admin: 05/29/23 08:39 Dose: 200 mg Senna/Docusate Sodium (Sennosides/Docusate Sodium Tablet) 2 tab PO MoWeFr@2100 [facility] [place] Last Admin: 05/27/23 22:29 Dose: 2 tab Sertraline HCl (Sertraline Hcl 100 Mg Tablet) 100 mg PO DAILY [facility] [place] Last Admin: 05/19/23 08:35 Dose: 100 mg Simethicone (Simethicone 80 Mg Tab.Chew) 80 mg PO BEDTIME [facility] Last Admin: 05/28/23 20:41 Dose: 80 mg Simethicone (Simethicone 80 Mg Tab.Chew) 80 mg PO QIDWMHS PRN PRN Reason: Gas Sodium Chloride (Sodium Chloride 0.65 % Nasal 44 Ml Sprbtl) 1 spray NOSTRIL-B BID [facility] Last Admin: 05/28/23 20:50 Dose: 1 spray Trazodone HCl (Trazodone Hcl 50 Mg Tablet) 50 mg PO BEDTIME MRX1 PRN PRN Reason: Insomnia Last Admin: 05/18/23 21:03 Dose: 50 mg Trazodone HCl (Trazodone Hcl 100 Mg Tablet) 100 mg PO BEDTIME [facility] [place] Last Admin: 05/28/23 20:40 Dose: 100 mg Vitamin D (Cholecalciferol (Vitamin D3) 25 Mcg Tablet) 25 mcg PO DAILY [facility] [place] Last Admin: 05/29/23 08:40 Dose: 25 mcg Allergies Allergies Allergy/AdvReac Type Severity Reaction Status Date / Time abacavir [ABACAVIR] Allergy Severe HIVES Verified 05/09/23 13:34 hydrochlorothiazide Allergy Severe HIVES Verified 05/09/23 13:34 [HYDROCHLOROTHIAZIDE] ibuprofen [From MOTRIN] Allergy Severe HIVES Verified 05/09/23 13:34 Penicillins [PENICILLINS] Allergy Severe HIVES Verified 05/09/23 13:34 tenofovir [From VIREAD] Allergy Severe HIVES Verified 05/09/23 13:34 tomato [TOMATO] Allergy Severe HIVES Verified 05/09/23 13:34 zidovudine [From RETROVIR] Allergy Severe HIVES Verified 05/09/23 13:34 lactose [Lactose] AdvReac Mild DIARRHEA Verified 05/17/23 11:10 disoproxail Allergy Mild Unknown Uncoded 05/09/23 13:34 Assessment & Plan Assessment & Plan (1) Cognitive developmental delay: Status: Acute Code(s): F81.9 - Developmental disorder of scholastic skills, unspecified (2) Psychosis: Status: Acute Code(s): F29 - Unspecified psychosis not due to a substance or known physiological condition Assessment and Plan: Mental health changes /psychosis? not due to HIV or syphilis likely since taking medication regularly. (3) Positive serological reaction for syphilis: Status: Acute Code(s): A53.0 - Latent syphilis, unspecified as early or late Plan 05/21- continue tx. 05/22 filed involuntary treatment as pt continues to present as labile, explosive and paranoid/some grandiose delusions and auditory hallucinations. 05/23 continues to present as labile, explosive with paranoid delusions and psychosis. will add depakote 500mg po BID for explosive, grandiose delusions. 05/24 no significant change. continue current medications. 05/25 continue current medications. 05/26: Continue current management and treatment plan. 05/27: per ID, no infectious etiology for psychosis evident. check VPA and ammonia tomorrow. otherwise continue current mgmt. hearing scheduled for 06/04. 05/28: VPA elevated at 137.2. hold dosing for 24H, decrease dosing from 750 BID to 500 BID. check level 05/29 morning. recent vomiting likely due to elevated VPA level. mood remains reactive and unstable even with supra- therapeutic VPA level, T/C adding a second mood stabilizer. 05/29 slightly calmer, less labile. less ideas of staff from calling to her ear Reason for continued inpatient stay Substantial Risk for: inability to function Time Spent With Patient Time: Total time managing care of this patient today ____ minutes.
[2023-05-29] MEDS: Divalproex Sodium 500 MG TABLET.DR PO ×2 (10:16→20:43)
[2023-05-29] MEDS: Mineral Oil/Petrolatum,White 106 GM Tube 1 APPL TOPICAL ×3 (10:22→20:41)
[2023-05-29] MEDS: Sodium Chloride 0.65 % Nasal 44 ML SPRBTL 1 SPRAY NOSTRIL-B (10:23)
[2023-05-29] MEDS: Simethicone 80 MG TAB.CHEW PO (20:42)
[2023-05-29] MEDS: Sennosides/Docusate Sodium TABLET 2 TAB PO (20:42)
[2023-05-29] MEDS: Atorvastatin Calcium 10 MG TABLET PO (20:43)
[2023-05-29] MEDS: traZODone HCL 100 MG TABLET PO (20:43)
[2023-05-30] MEDS: Levothyroxine Sodium 75 MCG TABLET PO (06:28)
[2023-05-30 07:00] VITALS: BMI 30.2
[2023-05-30] MEDS: Omeprazole 20 MG CAPSULE.DR PO (07:00)
[2023-05-30 08:00] VITALS: BP 154/89; PULSE 83; TEMP 36.2; O2SAT 94
[2023-05-30] MEDS: Psyllium seed 3.7 GM PACKET PO ×2 (08:09→21:19)
[2023-05-30] MEDS: Calcium + Vitamin D 250 MG TABLET 500 MG PO ×2 (08:09→21:21)
[2023-05-30] MEDS: Sodium Chloride 0.65 % Nasal 44 ML SPRBTL 1 SPRAY NOSTRIL-B ×2 (08:09→21:19)
[2023-05-30] MEDS: Cholecalciferol (Vitamin D3) 25 MCG TABLET PO (08:10)
[2023-05-30] MEDS: Bictegrav/Emtricit/Tenofov Ala TABLET 1 TAB PO (08:10)
[2023-05-30] MEDS: Divalproex Sodium 500 MG TABLET.DR PO ×2 (08:10→21:20)
[2023-05-30] MEDS: Multivitamin TABLET 1 TAB PO (08:10)
[2023-05-30] MEDS: oxyBUTYnin chloride ER 5 MG TAB.ER.24 PO (08:10)
[2023-05-30] MEDS: QUEtiapine Fumarate 200 MG TABLET PO ×3 (08:11→21:21)
[2023-05-30] MEDS: Mineral Oil/Petrolatum,White 106 GM Tube 1 APPL TOPICAL ×2 (08:11→21:19)
[2023-05-30] MEDS: Folic Acid 1 MG TABLET PO (08:11)
--- NOTE | 2023-05-30 12:42 | P.PNPSI_ITS ---
Subjective Subjective Date of Service: 05/30/23 Reason For Visit: Psychosis Subjective Notes: Section 7 and Section 8 Interim History: The nursing staff reported the patient had been medication compliant, pleasant, she slept last night on the sensory room. On interview the patient denies new symptoms, superficially cooperative. Mental Status Exam Mental Status Exam Patient Appearance: Well Grooomed and Appropriate Patient Orientation: Person and Situation Level of Consciousness: Awake and Appropriate Patient Behavior: Guarded and Passive Mood Description: Calm Affect Description: Constricted Ability to Follow Directions: Good Speech Pattern: Clear Hallucinations: None Delusions: Not Present Thought Process: Linear Thought Content: positive for Circumstantial Judgement: Fair Diagnostics Vital Signs (24Hr): Vital Signs - 24 hr 05/30/23 08:00 Temperature 97.2 F Pulse Rate 83 Blood Pressure 154/89 H Pulse Oximetry 94 Oxygen Delivery Method Room Air BMI result Body Mass Index 30.1 Labs 05/16/23 14:52 05/17/23 08:54 Labs: Laboratory Results - last 48 hr 05/29/23 09:11 Valproic Acid 47.4 L Imaging Radiology Impressions: ITS Impressions Head CT 05/17/23 17:01 IMPRESSION: Unremarkable exam. Medications Medications Current Medications Acetaminophen (Acetaminophen 325 Mg Tablet) 650 mg PO Q6H PRN PRN Reason: Pain Last Admin: 05/29/23 09:33 Dose: 650 mg Al Hydroxide/Mg Hydroxide (Magnesium Hydrox/Alum Hydrox 30 Ml Oral.Susp) 30 ml PO Q6H PRN PRN Reason: Heartburn/Nausea Albuterol Sulfate (Albuterol Sulfate 90 Mcg 8 Gm Inhaler) 2 puff INHALE Q4H PRN PRN Reason: Wheezing Last Admin: 05/18/23 21:03 Dose: 2 puff Atorvastatin Calcium (Atorvastatin Calcium 10 Mg Tablet) 10 mg PO BEDTIME RENATO Last Admin: 05/29/23 20:43 Dose: 10 mg Bictegravir/Emtricitabine/Tenofovir (Bictegrav/Emtricit/Tenofov Ala Tablet) 1 tab PO DAILY [facility] Last Admin: 05/30/23 08:10 Dose: 1 tab Calcium Carbonate/Cholecalciferol (Calcium + Vitamin D 250 Mg Tablet) 500 mg PO BID [facility] Last Admin: 05/30/23 08:09 Dose: 500 mg Divalproex Sodium (Divalproex Sodium 500 Mg Tablet.Dr) 500 mg PO BID [facility] Last Admin: 05/30/23 08:10 Dose: 500 mg Folic Acid (Folic Acid 1 Mg Tablet) 1 mg PO DAILY [facility] Last Admin: 05/30/23 08:11 Dose: 1 mg Hydrocortisone (Hydrocortisone 1 % Cream 28.35 Gm Tube) 1 appl TOPICAL BID PRN; Protocol PRN Reason: Rash Hydroxyzine HCl (Hydroxyzine Hcl 25 Mg Tablet) 25 mg PO Q6H PRN PRN Reason: Anxiety Last Admin: 05/25/23 17:44 Dose: 25 mg Lactase (Lactase Tablet) 2 tab PO QIDWMHS PRN PRN Reason: EATING DIARY Last Admin: 05/23/23 07:02 Dose: 2 tab Levothyroxine Sodium (Levothyroxine Sodium 75 Mcg Tablet) 75 mcg PO DAILY@0600 [facility] Last Admin: 05/30/23 06:28 Dose: 75 mcg Loperamide HCl (Loperamide Hcl 2 Mg Capsule) 2 mg PO QID PRN PRN Reason: Loose Stool Magnesium Hydroxide (Milk Of Magnesia 30 Ml Oral.Susp) 30 ml PO DAILY PRN PRN Reason: Constipation Multi-Ingred Cream/Lotion/Oil/Oint (Mineral Oil/Petrolatum,White 106 Gm Tube) 1 appl TOPICAL TID [facility]; Protocol Last Admin: 05/30/23 08:11 Dose: 1 appl Multivitamins/Vitamin C (Multivitamin Tablet) 1 tab PO DAILY [facility] Last Admin: 05/30/23 08:10 Dose: 1 tab Omeprazole (Omeprazole 20 Mg Capsule.) 20 mg PO DAILY@0630 [facility] Last Admin: 05/30/23 07:00 Dose: 20 mg Ondansetron HCl (Ondansetron Odt 4 Mg Tab.Rapdis) 4 mg TRANSLINGU Q6H PRN PRN Reason: Nausea and Vomiting Last Admin: 05/28/23 08:26 Dose: 4 mg Oxybutynin Chloride (Oxybutynin Chloride Er 5 Mg Tab.Er.24) 5 mg PO DAILY [facility] Last Admin: 05/30/23 08:10 Dose: 5 mg Psyllium Hydrophilic Mucilloid (Psyllium Seed 3.7 Gm Packet) 3.7 gm PO BID [facility] Last Admin: 05/30/23 08:09 Dose: 3.7 gm Quetiapine Fumarate (Quetiapine Fumarate 200 Mg Tablet) 200 mg PO TID [facility] Last Admin: 05/30/23 08:11 Dose: 200 mg Senna/Docusate Sodium (Sennosides/Docusate Sodium Tablet) 2 tab PO MoWeFr@2100 [facility] Last Admin: 05/29/23 20:42 Dose: 2 tab Sertraline HCl (Sertraline Hcl 100 Mg Tablet) 100 mg PO DAILY [facility] Last Admin: 05/19/23 08:35 Dose: 100 mg Simethicone (Simethicone 80 Mg Tab.Chew) 80 mg PO BEDTIME [facility] Last Admin: 05/29/23 20:42 Dose: 80 mg Simethicone (Simethicone 80 Mg Tab.Chew) 80 mg PO QIDWMHS PRN PRN Reason: Gas Sodium Chloride (Sodium Chloride 0.65 % Nasal 44 Ml Sprbtl) 1 spray NOSTRIL-B BID [facility] Last Admin: 05/30/23 08:09 Dose: 1 spray Trazodone HCl (Trazodone Hcl 50 Mg Tablet) 50 mg PO BEDTIME MRX1 PRN PRN Reason: Insomnia Last Admin: 05/18/23 21:03 Dose: 50 mg Trazodone HCl (Trazodone Hcl 100 Mg Tablet) 100 mg PO BEDTIME [facility] Last Admin: 05/29/23 20:43 Dose: 100 mg Vitamin D (Cholecalciferol (Vitamin D3) 25 Mcg Tablet) 25 mcg PO DAILY [facility] Last Admin: 05/30/23 08:10 Dose: 25 mcg Allergies Allergies Allergy/AdvReac Type Severity Reaction Status Date / Time abacavir [ABACAVIR] Allergy Severe HIVES Verified 05/09/23 13:34 hydrochlorothiazide Allergy Severe HIVES Verified 05/09/23 13:34 [HYDROCHLOROTHIAZIDE] ibuprofen [From MOTRIN] Allergy Severe HIVES Verified 05/09/23 13:34 Penicillins [PENICILLINS] Allergy Severe HIVES Verified 05/09/23 13:34 tenofovir [From VIREAD] Allergy Severe HIVES Verified 05/09/23 13:34 tomato [TOMATO] Allergy Severe HIVES Verified 05/09/23 13:34 zidovudine [From RETROVIR] Allergy Severe HIVES Verified 05/09/23 13:34 lactose [Lactose] AdvReac Mild DIARRHEA Verified 05/17/23 11:10 disoproxail Allergy Mild Unknown Uncoded 05/09/23 13:34 Assessment & Plan Assessment & Plan (1) Cognitive developmental delay: Status: Acute Code(s): F81.9 - Developmental disorder of scholastic skills, unspecified (2) Psychosis: Status: Acute Code(s): F29 - Unspecified psychosis not due to a substance or known physiological condition Assessment and Plan: Mental health changes /psychosis? not due to HIV or syphilis likely since taking medication regularly. (3) Positive serological reaction for syphilis: Status: Acute Code(s): A53.0 - Latent syphilis, unspecified as early or late Plan 05/21- continue tx. 05/22 filed involuntary treatment as pt continues to present as labile, explosive and paranoid/some grandiose delusions and auditory hallucinations. 05/23 continues to present as labile, explosive with paranoid delusions and psychosis. will add depakote 500mg po BID for explosive, grandiose delusions. 05/24 no significant change. continue current medications. 05/25 continue current medications. 05/26: Continue current management and treatment plan. 05/27: per ID, no infectious etiology for psychosis evident. check VPA and ammonia tomorrow. otherwise continue current mgmt. hearing scheduled for 06/04. 05/28: VPA elevated at 137.2. hold dosing for 24H, decrease dosing from 750 BID to 500 BID. check level 05/29 morning. recent vomiting likely due to elevated VPA level. mood remains reactive and unstable even with supra- therapeutic VPA level, T/C adding a second mood stabilizer. 05/29 slightly calmer, less labile. less ideas of staff from calling to her ear 05/30 keep same treatment Reason for continued inpatient stay Substantial Risk for: inability to function, rapid decompensation and med/psych decompensation Time Spent With Patient Time: Total time managing care of this patient today __20__ minutes.
[2023-05-30 20:30] VITALS: BP 132/74; PULSE 92; RESP 16; TEMP 36.6; O2SAT 98
[2023-05-30] MEDS: Atorvastatin Calcium 10 MG TABLET PO (21:20)
[2023-05-30] MEDS: traZODone HCL 50 MG TABLET PO (21:21)
[2023-05-30] MEDS: traZODone HCL 100 MG TABLET PO (21:21)
[2023-05-30] MEDS: Simethicone 80 MG TAB.CHEW PO (21:21)
[2023-05-31] MEDS: Levothyroxine Sodium 75 MCG TABLET PO (06:16)
[2023-05-31] MEDS: Omeprazole 20 MG CAPSULE.DR PO (07:04)
[2023-05-31 07:15] VITALS: BP 112/65; PULSE 91; RESP 20; TEMP 36.2; O2SAT 97
--- NOTE | 2023-05-31 08:52 | P.PNPSI_ITS ---
Subjective Subjective Date of Service: 05/31/23 Reason For Visit: Psychosis Subjective Notes: Section 7 Interim History: Pt slept through the night. No behavioral concerns. Pt reports feeling better. When asked if staff from calling to directly to her ear (as she would often denied hearing voices but would report staff calling her to her ear and not to the phone), she states she is not hearing their voices as much. She was tearful when asked this selling underwriter if I thought people at and at work miss her. She seems less paranoid towards them. She is visible on the unit, social with peers. No aggression. She is taking medications as prescribed Will repeat depakote level Saturday. Medication Compliance: Yes Review of Systems Review of Systems No SOB No chest pain Pt denies pain Pt denies GI symptoms including constipation or diarrhea. Yes all other systems are reviewed and are negative Mental Status Exam Mental Status Exam Narrative: Appearance: wearing casual clothing, fair hygiene, in NAD Behavior: minimally cooperative Psychomotor: no PMA/PMR Speech: clear, normal rate/rhythm, spontaneous. increased amount and loudness. TP: less disorganized TC: requesting discharge Mood: not assessed Affect: less labile SI: none expressed HI: none expressed VH/AH:less ideas of staff from calling her directly to her ear. Insight/judgment: impaired x 2. Diagnostics Vital Signs (24Hr): Vital Signs - 24 hr 05/30/23 20:30 05/31/23 07:15 Temperature 97.8 F 97.2 F Pulse Rate 92 91 Respiratory Rate 16 20 Blood Pressure 132/74 112/65 Pulse Oximetry 98 97 Oxygen Delivery Method Room Air Room Air BMI result Body Mass Index 30.2 Labs 05/16/23 14:52 05/17/23 08:54 Labs: Laboratory Results - last 48 hr 05/29/23 09:11 Valproic Acid 47.4 L Imaging Radiology Impressions: ITS Impressions Head CT 05/17/23 17:01 IMPRESSION: Unremarkable exam. Medications Medications Current Medications Acetaminophen (Acetaminophen 325 Mg Tablet) 650 mg PO Q6H PRN PRN Reason: Pain Last Admin: 05/29/23 09:33 Dose: 650 mg Al Hydroxide/Mg Hydroxide (Magnesium Hydrox/Alum Hydrox 30 Ml Oral.Susp) 30 ml PO Q6H PRN PRN Reason: Heartburn/Nausea Albuterol Sulfate (Albuterol Sulfate 90 Mcg 8 Gm Inhaler) 2 puff INHALE Q4H PRN PRN Reason: Wheezing Last Admin: 05/18/23 21:03 Dose: 2 puff Atorvastatin Calcium (Atorvastatin Calcium 10 Mg Tablet) 10 mg PO BEDTIME [facility] Last Admin: 05/30/23 21:20 Dose: 10 mg Bictegravir/Emtricitabine/Tenofovir (Bictegrav/Emtricit/Tenofov Ala Tablet) 1 tab PO DAILY [facility] Last Admin: 05/30/23 08:10 Dose: 1 tab Calcium Carbonate/Cholecalciferol (Calcium + Vitamin D 250 Mg Tablet) 500 mg PO BID [facility] Last Admin: 05/30/23 21:21 Dose: 500 mg Divalproex Sodium (Divalproex Sodium 500 Mg Tablet.) 500 mg PO BID [facility] Last Admin: 05/30/23 21:20 Dose: 500 mg Folic Acid (Folic Acid 1 Mg Tablet) 1 mg PO DAILY [facility] Last Admin: 05/30/23 08:11 Dose: 1 mg Hydrocortisone (Hydrocortisone 1 % Cream 28.35 Gm Tube) 1 appl TOPICAL BID PRN; Protocol PRN Reason: Rash Hydroxyzine HCl (Hydroxyzine Hcl 25 Mg Tablet) 25 mg PO Q6H PRN PRN Reason: Anxiety Last Admin: 05/25/23 17:44 Dose: 25 mg Lactase (Lactase Tablet) 2 tab PO QIDWMHS PRN PRN Reason: EATING DIARY Last Admin: 05/23/23 07:02 Dose: 2 tab Levothyroxine Sodium (Levothyroxine Sodium 75 Mcg Tablet) 75 mcg PO DAILY@0600 [facility] Last Admin: 05/31/23 06:16 Dose: 75 mcg Loperamide HCl (Loperamide Hcl 2 Mg Capsule) 2 mg PO QID PRN PRN Reason: Loose Stool Magnesium Hydroxide (Milk Of Magnesia 30 Ml Oral.Susp) 30 ml PO DAILY PRN PRN Reason: Constipation Multi-Ingred Cream/Lotion/Oil/Oint (Mineral Oil/Petrolatum,White 106 Gm Tube) 1 appl TOPICAL TID [facility]; Protocol Last Admin: 05/30/23 21:19 Dose: 1 appl Multivitamins/Vitamin C (Multivitamin Tablet) 1 tab PO DAILY [facility] Last Admin: 05/30/23 08:10 Dose: 1 tab Omeprazole (Omeprazole 20 Mg Capsule.) 20 mg PO DAILY@0630 [facility] Last Admin: 05/31/23 07:04 Dose: 20 mg Ondansetron HCl (Ondansetron Odt 4 Mg Tab.Rapdis) 4 mg TRANSLINGU Q6H PRN PRN Reason: Nausea and Vomiting Last Admin: 05/28/23 08:26 Dose: 4 mg Oxybutynin Chloride (Oxybutynin Chloride Er 5 Mg Tab.Er.24) 5 mg PO DAILY [facility] Last Admin: 05/30/23 08:10 Dose: 5 mg Psyllium Hydrophilic Mucilloid (Psyllium Seed 3.7 Gm Packet) 3.7 gm PO BID [facility] Last Admin: 05/30/23 21:19 Dose: 3.7 gm Quetiapine Fumarate (Quetiapine Fumarate 200 Mg Tablet) 200 mg PO TID [facility] Last Admin: 05/30/23 21:21 Dose: 200 mg Senna/Docusate Sodium (Sennosides/Docusate Sodium Tablet) 2 tab PO MoWeFr@2100 [facility] Last Admin: 05/29/23 20:42 Dose: 2 tab Sertraline HCl (Sertraline Hcl 100 Mg Tablet) 100 mg PO DAILY [facility] Last Admin: 05/19/23 08:35 Dose: 100 mg Simethicone (Simethicone 80 Mg Tab.Chew) 80 mg PO BEDTIME [facility] Last Admin: 05/30/23 21:21 Dose: 80 mg Simethicone (Simethicone 80 Mg Tab.Chew) 80 mg PO QIDWMHS PRN PRN Reason: Gas Sodium Chloride (Sodium Chloride 0.65 % Nasal 44 Ml Sprbtl) 1 spray NOSTRIL-B BID [facility] Last Admin: 05/30/23 21:19 Dose: 1 spray Trazodone HCl (Trazodone Hcl 50 Mg Tablet) 50 mg PO BEDTIME MRX1 PRN PRN Reason: Insomnia Last Admin: 05/30/23 21:21 Dose: 50 mg Trazodone HCl (Trazodone Hcl 100 Mg Tablet) 100 mg PO BEDTIME [facility] Last Admin: 05/30/23 21:21 Dose: 100 mg Vitamin D (Cholecalciferol (Vitamin D3) 25 Mcg Tablet) 25 mcg PO DAILY [facility] Last Admin: 05/30/23 08:10 Dose: 25 mcg Allergies Allergies Allergy/AdvReac Type Severity Reaction Status Date / Time abacavir [ABACAVIR] Allergy Severe HIVES Verified 05/09/23 13:34 hydrochlorothiazide Allergy Severe HIVES Verified 05/09/23 13:34 [HYDROCHLOROTHIAZIDE] ibuprofen [From MOTRIN] Allergy Severe HIVES Verified 05/09/23 13:34 Penicillins [PENICILLINS] Allergy Severe HIVES Verified 05/09/23 13:34 tenofovir [From VIREAD] Allergy Severe HIVES Verified 05/09/23 13:34 tomato [TOMATO] Allergy Severe HIVES Verified 05/09/23 13:34 zidovudine [From RETROVIR] Allergy Severe HIVES Verified 05/09/23 13:34 lactose [Lactose] AdvReac Mild DIARRHEA Verified 05/17/23 11:10 disoproxail Allergy Mild Unknown Uncoded 05/09/23 13:34 Assessment & Plan Assessment & Plan (1) Cognitive developmental delay: Status: Acute Code(s): F81.9 - Developmental disorder of scholastic skills, unspecified (2) Psychosis: Status: Acute Code(s): F29 - Unspecified psychosis not due to a substance or known physiological condition Assessment and Plan: Mental health changes /psychosis? not due to HIV or syphilis likely since taking medication regularly. (3) Positive serological reaction for syphilis: Status: Acute Code(s): A53.0 - Latent syphilis, unspecified as early or late Plan 05/21- continue tx. 05/22 filed involuntary treatment as pt continues to present as labile, explosive and paranoid/some grandiose delusions and auditory hallucinations. 05/23 continues to present as labile, explosive with paranoid delusions and psychosis. will add depakote 500mg po BID for explosive, grandiose delusions. 05/24 no significant change. continue current medications. 05/25 continue current medications. 05/26: Continue current management and treatment plan. 05/27: per ID, no infectious etiology for psychosis evident. check VPA and ammonia tomorrow. otherwise continue current mgmt. hearing scheduled for 06/04. 05/28: VPA elevated at 137.2. hold dosing for 24H, decrease dosing from 750 BID to 500 BID. check level 05/29 morning. recent vomiting likely due to elevated VPA level. mood remains reactive and unstable even with supra- therapeutic VPA level, T/C adding a second mood stabilizer. 05/29 slightly calmer, less labile. less ideas of staff from calling to her ear 05/30 keep same treatment 05/31 less labile, less AH, less paranoid. will repeat depakote level on 06/03 AM Reason for continued inpatient stay Substantial Risk for: inability to function Time Spent With Patient Time: Total time managing care of this patient today ____ minutes.
[2023-05-31] MEDS: Cholecalciferol (Vitamin D3) 25 MCG TABLET PO (10:03)
[2023-05-31] MEDS: Divalproex Sodium 500 MG TABLET.DR PO ×2 (10:03→20:30)
[2023-05-31] MEDS: Folic Acid 1 MG TABLET PO (10:03)
[2023-05-31] MEDS: Bictegrav/Emtricit/Tenofov Ala TABLET 1 TAB PO (10:03)
[2023-05-31] MEDS: Multivitamin TABLET 1 TAB PO (10:03)
[2023-05-31] MEDS: oxyBUTYnin chloride ER 5 MG TAB.ER.24 PO (10:03)
[2023-05-31] MEDS: Psyllium seed 3.7 GM PACKET PO ×2 (10:04→20:30)
[2023-05-31] MEDS: Calcium + Vitamin D 250 MG TABLET 500 MG PO ×2 (10:04→20:34)
[2023-05-31] MEDS: QUEtiapine Fumarate 200 MG TABLET PO ×3 (10:04→20:33)
[2023-05-31] MEDS: Sodium Chloride 0.65 % Nasal 44 ML SPRBTL 1 SPRAY NOSTRIL-B (10:11)
[2023-05-31 19:15] VITALS: BP 116/67; PULSE 90; RESP 18; TEMP 36.3; O2SAT 98
[2023-05-31] MEDS: traZODone HCL 100 MG TABLET PO (20:33)
[2023-05-31] MEDS: Sennosides/Docusate Sodium TABLET 2 TAB PO (20:33)
[2023-05-31] MEDS: traZODone HCL 50 MG TABLET PO (20:33)
[2023-05-31] MEDS: Atorvastatin Calcium 10 MG TABLET PO (20:33)
[2023-05-31] MEDS: Simethicone 80 MG TAB.CHEW PO (20:34)
[2023-06-01] MEDS: Levothyroxine Sodium 75 MCG TABLET PO (07:08)
[2023-06-01 07:10] VITALS: BP 114/62; PULSE 101; RESP 16; TEMP 36.2; O2SAT 100
[2023-06-01] MEDS: Calcium + Vitamin D 250 MG TABLET 500 MG PO ×2 (08:46→20:46)
[2023-06-01] MEDS: Multivitamin TABLET 1 TAB PO (08:46)
[2023-06-01] MEDS: Cholecalciferol (Vitamin D3) 25 MCG TABLET PO (08:46)
[2023-06-01] MEDS: oxyBUTYnin chloride ER 5 MG TAB.ER.24 PO (08:47)
[2023-06-01] MEDS: Bictegrav/Emtricit/Tenofov Ala TABLET 1 TAB PO (08:47)
[2023-06-01] MEDS: Folic Acid 1 MG TABLET PO (08:47)
[2023-06-01] MEDS: Omeprazole 20 MG CAPSULE.DR PO (08:48)
[2023-06-01] MEDS: Divalproex Sodium 500 MG TABLET.DR PO ×2 (08:48→20:47)
[2023-06-01] MEDS: QUEtiapine Fumarate 200 MG TABLET PO ×3 (08:48→20:47)
[2023-06-01] MEDS: Psyllium seed 3.7 GM PACKET PO ×2 (08:51→20:45)
[2023-06-01] MEDS: Mineral Oil/Petrolatum,White 106 GM Tube 1 APPL TOPICAL ×2 (10:31→20:43)
[2023-06-01] MEDS: Sodium Chloride 0.65 % Nasal 44 ML SPRBTL 1 SPRAY NOSTRIL-B ×2 (10:36→20:44)
--- NOTE | 2023-06-01 14:06 | P.PNPSI_ITS ---
Subjective Subjective Date of Service: 06/01/23 Reason For Visit: Psychosis Subjective Notes: Section 7 Interim History: Pt slept through the night. No behavioral concerns. pt insisting on discharged today. 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 No behavioral concerns. She is pleasant on appraoch. Review of Systems Review of Systems No SOB No chest pain Pt denies pain Pt denies GI symptoms including constipation or diarrhea. Yes all other systems are reviewed and are negative Mental Status Exam Mental Status Exam Narrative: Appearance: wearing casual clothing, fair hygiene, in NAD Behavior: minimally cooperative Psychomotor: no PMA/PMR Speech: clear, normal rate/rhythm, spontaneous. increased amount and loudness. TP: less disorganized TC: requesting discharge Mood: not assessed Affect: less labile SI: none expressed HI: none expressed VH/AH:less ideas of staff from calling her directly to her ear. Insight/judgment: impaired x 2. Diagnostics Vital Signs (24Hr): Vital Signs - 24 hr 05/31/23 19:15 06/01/23 07:10 Temperature 97.3 F 97.2 F Pulse Rate 90 101 H Respiratory Rate 18 16 Blood Pressure 116/67 114/62 Pulse Oximetry 98 100 Oxygen Delivery Method Room Air Room Air BMI result Body Mass Index 30.2 Labs 05/16/23 14:52 05/17/23 08:54 Imaging Radiology Impressions: ITS Impressions Head CT 05/17/23 17:01 IMPRESSION: Unremarkable exam. Medications Medications Current Medications Acetaminophen (Acetaminophen 325 Mg Tablet) 650 mg PO Q6H PRN PRN Reason: Pain Last Admin: 05/29/23 09:33 Dose: 650 mg Al Hydroxide/Mg Hydroxide (Magnesium Hydrox/Alum Hydrox 30 Ml Oral.Susp) 30 ml PO Q6H PRN PRN Reason: Heartburn/Nausea Albuterol Sulfate (Albuterol Sulfate 90 Mcg 8 Gm Inhaler) 2 puff INHALE Q4H PRN PRN Reason: Wheezing Last Admin: 05/18/23 21:03 Dose: 2 puff Atorvastatin Calcium (Atorvastatin Calcium 10 Mg Tablet) 10 mg PO BEDTIME [facility] Last Admin: 05/31/23 20:33 Dose: 10 mg Bictegravir/Emtricitabine/Tenofovir (Bictegrav/Emtricit/Tenofov Ala Tablet) 1 tab PO DAILY [facility] Last Admin: 06/01/23 08:47 Dose: 1 tab Calcium Carbonate/Cholecalciferol (Calcium + Vitamin D 250 Mg Tablet) 500 mg PO BID [facility] Last Admin: 06/01/23 08:46 Dose: 500 mg Divalproex Sodium (Divalproex Sodium 500 Mg Tablet.) 500 mg PO BID [facility] Last Admin: 06/01/23 08:48 Dose: 500 mg Folic Acid (Folic Acid 1 Mg Tablet) 1 mg PO DAILY [facility] Last Admin: 06/01/23 08:47 Dose: 1 mg Hydrocortisone (Hydrocortisone 1 % Cream 28.35 Gm Tube) 1 appl TOPICAL BID PRN; Protocol PRN Reason: Rash Hydroxyzine HCl (Hydroxyzine Hcl 25 Mg Tablet) 25 mg PO Q6H PRN PRN Reason: Anxiety Last Admin: 05/25/23 17:44 Dose: 25 mg Lactase (Lactase Tablet) 2 tab PO QIDWMHS PRN PRN Reason: EATING DIARY Last Admin: 05/23/23 07:02 Dose: 2 tab Levothyroxine Sodium (Levothyroxine Sodium 75 Mcg Tablet) 75 mcg PO DAILY@0600 [facility] Last Admin: 06/01/23 07:08 Dose: 75 mcg Loperamide HCl (Loperamide Hcl 2 Mg Capsule) 2 mg PO QID PRN PRN Reason: Loose Stool Magnesium Hydroxide (Milk Of Magnesia 30 Ml Oral.Susp) 30 ml PO DAILY PRN PRN Reason: Constipation Multi-Ingred Cream/Lotion/Oil/Oint (Mineral Oil/Petrolatum,White 106 Gm Tube) 1 appl TOPICAL TID [facility]; Protocol Last Admin: 06/01/23 10:31 Dose: 1 appl Multivitamins/Vitamin C (Multivitamin Tablet) 1 tab PO DAILY [facility] Last Admin: 06/01/23 08:46 Dose: 1 tab Omeprazole (Omeprazole 20 Mg Capsule.) 20 mg PO DAILY@0630 [facility] Last Admin: 06/01/23 08:48 Dose: 20 mg Ondansetron HCl (Ondansetron Odt 4 Mg Tab.Rapdis) 4 mg TRANSLINGU Q6H PRN PRN Reason: Nausea and Vomiting Last Admin: 05/28/23 08:26 Dose: 4 mg Oxybutynin Chloride (Oxybutynin Chloride Er 5 Mg Tab.Er.24) 5 mg PO DAILY [facility] Last Admin: 06/01/23 08:47 Dose: 5 mg Psyllium Hydrophilic Mucilloid (Psyllium Seed 3.7 Gm Packet) 3.7 gm PO BID [facility] Last Admin: 06/01/23 08:51 Dose: 3.7 gm Quetiapine Fumarate (Quetiapine Fumarate 200 Mg Tablet) 200 mg PO TID [facility] Last Admin: 06/01/23 08:48 Dose: 200 mg Senna/Docusate Sodium (Sennosides/Docusate Sodium Tablet) 2 tab PO MoWeFr@2100 [facility] Last Admin: 05/31/23 20:33 Dose: 2 tab Sertraline HCl (Sertraline Hcl 100 Mg Tablet) 100 mg PO DAILY [facility] Last Admin: 05/19/23 08:35 Dose: 100 mg Simethicone (Simethicone 80 Mg Tab.Chew) 80 mg PO BEDTIME [facility] Last Admin: 05/31/23 20:34 Dose: 80 mg Simethicone (Simethicone 80 Mg Tab.Chew) 80 mg PO QIDWMHS PRN PRN Reason: Gas Sodium Chloride (Sodium Chloride 0.65 % Nasal 44 Ml Sprbtl) 1 spray NOSTRIL-B BID [facility] Last Admin: 06/01/23 10:36 Dose: 1 spray Trazodone HCl (Trazodone Hcl 50 Mg Tablet) 50 mg PO BEDTIME MRX1 PRN PRN Reason: Insomnia Last Admin: 05/31/23 20:33 Dose: 50 mg Trazodone HCl (Trazodone Hcl 100 Mg Tablet) 100 mg PO BEDTIME [facility] Last Admin: 05/31/23 20:33 Dose: 100 mg Vitamin D (Cholecalciferol (Vitamin D3) 25 Mcg Tablet) 25 mcg PO DAILY [facility] Last Admin: 06/01/23 08:46 Dose: 25 mcg Allergies Allergies Allergy/AdvReac Type Severity Reaction Status Date / Time abacavir [ABACAVIR] Allergy Severe HIVES Verified 05/09/23 13:34 hydrochlorothiazide Allergy Severe HIVES Verified 05/09/23 13:34 [HYDROCHLOROTHIAZIDE] ibuprofen [From MOTRIN] Allergy Severe HIVES Verified 05/09/23 13:34 Penicillins [PENICILLINS] Allergy Severe HIVES Verified 05/09/23 13:34 tenofovir [From VIREAD] Allergy Severe HIVES Verified 05/09/23 13:34 tomato [TOMATO] Allergy Severe HIVES Verified 05/09/23 13:34 zidovudine [From RETROVIR] Allergy Severe HIVES Verified 05/09/23 13:34 lactose [Lactose] AdvReac Mild DIARRHEA Verified 05/17/23 11:10 disoproxail Allergy Mild Unknown Uncoded 05/09/23 13:34 Assessment & Plan Assessment & Plan (1) Cognitive developmental delay: Status: Acute Code(s): F81.9 - Developmental disorder of scholastic skills, unspecified (2) Psychosis: Status: Acute Code(s): F29 - Unspecified psychosis not due to a substance or known physiological condition Assessment and Plan: Mental health changes /psychosis? not due to HIV or syphilis likely since taking medication regularly. (3) Positive serological reaction for syphilis: Status: Acute Code(s): A53.0 - Latent syphilis, unspecified as early or late Plan 05/21- continue tx. 05/22 filed involuntary treatment as pt continues to present as labile, explosive and paranoid/some grandiose delusions and auditory hallucinations. 05/23 continues to present as labile, explosive with paranoid delusions and psychosis. will add depakote 500mg po BID for explosive, grandiose delusions. 05/24 no significant change. continue current medications. 05/25 continue current medications. 05/26: Continue current management and treatment plan. 05/27: per ID, no infectious etiology for psychosis evident. check VPA and ammonia tomorrow. otherwise continue current mgmt. hearing scheduled for 06/04. 05/28: VPA elevated at 137.2. hold dosing for 24H, decrease dosing from 750 BID to 500 BID. check level 05/29 morning. recent vomiting likely due to elevated VPA level. mood remains reactive and unstable even with supra- therapeutic VPA level, T/C adding a second mood stabilizer. 05/29 slightly calmer, less labile. less ideas of staff from calling to her ear 05/30 keep same treatment 05/31 less labile, less AH, less paranoid. will repeat depakote level on 06/03 AM 06/01 continue tx. Reason for continued inpatient stay Substantial Risk for: inability to function Time Spent With Patient Time: Total time managing care of this patient today ____ minutes.
[2023-06-01 19:20] VITALS: BP 135/73; PULSE 90; RESP 16; TEMP 36.3
[2023-06-01] MEDS: Atorvastatin Calcium 10 MG TABLET PO (20:46)
[2023-06-01] MEDS: Simethicone 80 MG TAB.CHEW PO (20:47)
[2023-06-01] MEDS: traZODone HCL 100 MG TABLET PO (20:48)
[2023-06-02] MEDS: Omeprazole 20 MG CAPSULE.DR PO (06:40)
[2023-06-02] MEDS: Levothyroxine Sodium 75 MCG TABLET PO (06:41)
[2023-06-02 07:15] VITALS: BP 121/73; PULSE 79; RESP 18; TEMP 35.9; O2SAT 100
[2023-06-02] MEDS: Calcium + Vitamin D 250 MG TABLET 500 MG PO ×2 (08:30→20:39)
[2023-06-02] MEDS: Mineral Oil/Petrolatum,White 106 GM Tube 1 APPL TOPICAL ×2 (08:30→15:38)
[2023-06-02] MEDS: Psyllium seed 3.7 GM PACKET PO ×2 (08:30→20:37)
[2023-06-02] MEDS: Bictegrav/Emtricit/Tenofov Ala TABLET 1 TAB PO (08:30)
[2023-06-02] MEDS: QUEtiapine Fumarate 200 MG TABLET PO ×3 (08:31→20:38)
[2023-06-02] MEDS: Divalproex Sodium 500 MG TABLET.DR PO ×2 (08:31→20:37)
[2023-06-02] MEDS: oxyBUTYnin chloride ER 5 MG TAB.ER.24 PO (08:31)
[2023-06-02] MEDS: Cholecalciferol (Vitamin D3) 25 MCG TABLET PO (08:31)
[2023-06-02] MEDS: Folic Acid 1 MG TABLET PO (08:32)
[2023-06-02] MEDS: Sodium Chloride 0.65 % Nasal 44 ML SPRBTL 1 SPRAY NOSTRIL-B (08:32)
[2023-06-02] MEDS: Multivitamin TABLET 1 TAB PO (08:32)
[2023-06-02 09:04] LABS: Valproate 77.1 mcg/mL (50.0-100.0)
--- NOTE | 2023-06-02 16:41 | HO.PSYCHPN ---
Subjective Subjective Date of Service: 06/02/23 Reason For Visit: Psychosis Subjective Notes: Section 7 Interim History: Pt slept through the night. No behavioral concerns. pt insisting on discharged today. 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 No behavioral concerns. She is pleasant on appraoch. Review of Systems Review of Systems No SOB No chest pain Pt denies pain Pt denies GI symptoms including constipation or diarrhea. Yes all other systems are reviewed and are negative Mental Status Exam Mental Status Exam Narrative: Appearance: wearing casual clothing, fair hygiene, in NAD Behavior: minimally cooperative Psychomotor: no PMA/PMR Speech: clear, normal rate/rhythm, spontaneous. increased amount and loudness. TP: less disorganized TC: requesting discharge Mood: not assessed Affect: less labile SI: none expressed HI: none expressed VH/AH:less ideas of staff from calling her directly to her ear. Insight/judgment: impaired x 2. Diagnostics Vital Signs (24Hr): Vital Signs - 24 hr 06/01/23 19:20 06/02/23 07:15 Temperature 97.3 F 96.6 F L Pulse Rate 90 79 Respiratory Rate 16 18 Blood Pressure 135/73 121/73 Pulse Oximetry 100 Oxygen Delivery Method Room Air BMI result Body Mass Index 30.2 Labs 05/16/23 14:52 05/17/23 08:54 Labs: Laboratory Results - last 48 hr 06/02/23 08:20 Valproic Acid 77.1 Imaging Radiology Impressions: ITS Impressions Head CT 05/17/23 17:01 IMPRESSION: Unremarkable exam. Medications Medications Current Medications Acetaminophen (Acetaminophen 325 Mg Tablet) 650 mg PO Q6H PRN PRN Reason: Pain Last Admin: 05/29/23 09:33 Dose: 650 mg Al Hydroxide/Mg Hydroxide (Magnesium Hydrox/Alum Hydrox 30 Ml Oral.Susp) 30 ml PO Q6H PRN PRN Reason: Heartburn/Nausea Albuterol Sulfate (Albuterol Sulfate 90 Mcg 8 Gm Inhaler) 2 puff INHALE Q4H PRN PRN Reason: Wheezing Last Admin: 05/18/23 21:03 Dose: 2 puff Atorvastatin Calcium (Atorvastatin Calcium 10 Mg Tablet) 10 mg PO BEDTIME RENATO Last Admin: 06/01/23 20:46 Dose: 10 mg Bictegravir/Emtricitabine/Tenofovir (Bictegrav/Emtricit/Tenofov Ala Tablet) 1 tab PO DAILY [facility] Last Admin: 06/02/23 08:30 Dose: 1 tab Calcium Carbonate/Cholecalciferol (Calcium + Vitamin D 250 Mg Tablet) 500 mg PO BID [facility] Last Admin: 06/02/23 08:30 Dose: 500 mg Divalproex Sodium (Divalproex Sodium 500 Mg Tablet.) 500 mg PO BID [facility] Last Admin: 06/02/23 08:31 Dose: 500 mg Folic Acid (Folic Acid 1 Mg Tablet) 1 mg PO DAILY [facility] Last Admin: 06/02/23 08:32 Dose: 1 mg Hydrocortisone (Hydrocortisone 1 % Cream 28.35 Gm Tube) 1 appl TOPICAL BID PRN; Protocol PRN Reason: Rash Hydroxyzine HCl (Hydroxyzine Hcl 25 Mg Tablet) 25 mg PO Q6H PRN PRN Reason: Anxiety Last Admin: 05/25/23 17:44 Dose: 25 mg Lactase (Lactase Tablet) 2 tab PO QIDWMHS PRN PRN Reason: EATING DIARY Last Admin: 05/23/23 07:02 Dose: 2 tab Levothyroxine Sodium (Levothyroxine Sodium 75 Mcg Tablet) 75 mcg PO DAILY@0600 [facility] Last Admin: 06/02/23 06:41 Dose: 75 mcg Loperamide HCl (Loperamide Hcl 2 Mg Capsule) 2 mg PO QID PRN PRN Reason: Loose Stool Magnesium Hydroxide (Milk Of Magnesia 30 Ml Oral.Susp) 30 ml PO DAILY PRN PRN Reason: Constipation Multi-Ingred Cream/Lotion/Oil/Oint (Mineral Oil/Petrolatum,White 106 Gm Tube) 1 appl TOPICAL TID [facility]; Protocol Last Admin: 06/02/23 15:38 Dose: 1 appl Multivitamins/Vitamin C (Multivitamin Tablet) 1 tab PO DAILY [facility] Last Admin: 06/02/23 08:32 Dose: 1 tab Omeprazole (Omeprazole 20 Mg Capsule.) 20 mg PO DAILY@0630 [facility] Last Admin: 06/02/23 06:40 Dose: 20 mg Ondansetron HCl (Ondansetron Odt 4 Mg Tab.Rapdis) 4 mg TRANSLINGU Q6H PRN PRN Reason: Nausea and Vomiting Last Admin: 05/28/23 08:26 Dose: 4 mg Oxybutynin Chloride (Oxybutynin Chloride Er 5 Mg Tab.Er.24) 5 mg PO DAILY [facility] Last Admin: 06/02/23 08:31 Dose: 5 mg Psyllium Hydrophilic Mucilloid (Psyllium Seed 3.7 Gm Packet) 3.7 gm PO BID [facility] Last Admin: 06/02/23 08:30 Dose: 3.7 gm Quetiapine Fumarate (Quetiapine Fumarate 200 Mg Tablet) 200 mg PO TID [facility] Last Admin: 06/02/23 15:38 Dose: 200 mg Senna/Docusate Sodium (Sennosides/Docusate Sodium Tablet) 2 tab PO MoWeFr@2100 [facility] Last Admin: 05/31/23 20:33 Dose: 2 tab Sertraline HCl (Sertraline Hcl 100 Mg Tablet) 100 mg PO DAILY [facility] Last Admin: 05/19/23 08:35 Dose: 100 mg Simethicone (Simethicone 80 Mg Tab.Chew) 80 mg PO BEDTIME [facility] Last Admin: 06/01/23 20:47 Dose: 80 mg Simethicone (Simethicone 80 Mg Tab.Chew) 80 mg PO QIDWMHS PRN PRN Reason: Gas Sodium Chloride (Sodium Chloride 0.65 % Nasal 44 Ml Sprbtl) 1 spray NOSTRIL-B BID [facility] Last Admin: 06/02/23 08:32 Dose: 1 spray Trazodone HCl (Trazodone Hcl 50 Mg Tablet) 50 mg PO BEDTIME MRX1 PRN PRN Reason: Insomnia Last Admin: 05/31/23 20:33 Dose: 50 mg Trazodone HCl (Trazodone Hcl 100 Mg Tablet) 100 mg PO BEDTIME [facility] Last Admin: 06/01/23 20:48 Dose: 100 mg Vitamin D (Cholecalciferol (Vitamin D3) 25 Mcg Tablet) 25 mcg PO DAILY [facility] Last Admin: 06/02/23 08:31 Dose: 25 mcg Allergies Allergies Allergy/AdvReac Type Severity Reaction Status Date / Time abacavir [ABACAVIR] Allergy Severe HIVES Verified 05/09/23 13:34 hydrochlorothiazide Allergy Severe HIVES Verified 05/09/23 13:34 [HYDROCHLOROTHIAZIDE] ibuprofen [From MOTRIN] Allergy Severe HIVES Verified 05/09/23 13:34 Penicillins [PENICILLINS] Allergy Severe HIVES Verified 05/09/23 13:34 tenofovir [From VIREAD] Allergy Severe HIVES Verified 05/09/23 13:34 tomato [TOMATO] Allergy Severe HIVES Verified 05/09/23 13:34 zidovudine [From RETROVIR] Allergy Severe HIVES Verified 05/09/23 13:34 lactose [Lactose] AdvReac Mild DIARRHEA Verified 05/17/23 11:10 disoproxail Allergy Mild Unknown Uncoded 05/09/23 13:34 Assessment & Plan Assessment & Plan (1) Cognitive developmental delay: Status: Acute Code(s): F81.9 - Developmental disorder of scholastic skills, unspecified (2) Psychosis: Status: Acute Code(s): F29 - Unspecified psychosis not due to a substance or known physiological condition Assessment and Plan: Mental health changes /psychosis? not due to HIV or syphilis likely since taking medication regularly. (3) Positive serological reaction for syphilis: Status: Acute Code(s): A53.0 - Latent syphilis, unspecified as early or late Plan 05/21- continue tx. 05/22 filed involuntary treatment as pt continues to present as labile, explosive and paranoid/some grandiose delusions and auditory hallucinations. 05/23 continues to present as labile, explosive with paranoid delusions and psychosis. will add depakote 500mg po BID for explosive, grandiose delusions. 05/24 no significant change. continue current medications. 05/25 continue current medications. 05/26: Continue current management and treatment plan. 05/27: per ID, no infectious etiology for psychosis evident. check VPA and ammonia tomorrow. otherwise continue current mgmt. hearing scheduled for 06/04. 05/28: VPA elevated at 137.2. hold dosing for 24H, decrease dosing from 750 BID to 500 BID. check level 05/29 morning. recent vomiting likely due to elevated VPA level. mood remains reactive and unstable even with supra-therapeutic VPA level, T/C adding a second mood stabilizer. 05/29 slightly calmer, less labile. less ideas of staff from calling to her ear 05/30 keep same treatment 05/31 less labile, less AH, less paranoid. will repeat depakote level on 06/03 AM 06/01 continue tx. 06/02 continue tx. depakote this AM 77. Reason for continued inpatient stay Substantial Risk for: inability to function Time Spent With Patient Time: Total time managing care of this patient today ____ minutes.
[2023-06-02 20:00] VITALS: BP 123/73; PULSE 92; TEMP 36.4; O2SAT 97
[2023-06-02] MEDS: Simethicone 80 MG TAB.CHEW PO (20:37)
[2023-06-02] MEDS: traZODone HCL 100 MG TABLET PO (20:38)
[2023-06-02] MEDS: Atorvastatin Calcium 10 MG TABLET PO (20:40)
[2023-06-03] MEDS: Levothyroxine Sodium 75 MCG TABLET PO (06:39)
[2023-06-03] MEDS: Omeprazole 20 MG CAPSULE.DR PO (06:40)
[2023-06-03 07:45] VITALS: BP 132/76; PULSE 89; RESP 18; TEMP 36.1; O2SAT 97
[2023-06-03] MEDS: Cholecalciferol (Vitamin D3) 25 MCG TABLET PO (08:33)
[2023-06-03] MEDS: Divalproex Sodium 500 MG TABLET.DR PO ×2 (08:33→20:10)
[2023-06-03] MEDS: Multivitamin TABLET 1 TAB PO (08:33)
[2023-06-03] MEDS: Bictegrav/Emtricit/Tenofov Ala TABLET 1 TAB PO (08:33)
[2023-06-03] MEDS: oxyBUTYnin chloride ER 5 MG TAB.ER.24 PO (08:33)
[2023-06-03] MEDS: Calcium + Vitamin D 250 MG TABLET 500 MG PO ×2 (08:33→20:10)
[2023-06-03] MEDS: Folic Acid 1 MG TABLET PO (08:33)
[2023-06-03] MEDS: Psyllium seed 3.7 GM PACKET PO ×2 (08:33→20:09)
[2023-06-03] MEDS: QUEtiapine Fumarate 200 MG TABLET PO ×3 (08:33→20:10)
[2023-06-03] MEDS: Mineral Oil/Petrolatum,White 106 GM Tube 1 APPL TOPICAL ×2 (08:44→20:12)
[2023-06-03] MEDS: Sodium Chloride 0.65 % Nasal 44 ML SPRBTL 1 SPRAY NOSTRIL-B ×2 (08:45→20:12)
--- NOTE | 2023-06-03 11:00 | P.DS_ITS ---
DS: Providers Provider Date of Service: 06/03/23 Date of admission: 05/16/23 21:20 Primary care physician: Saira Zacarias MD Consults: 05/20/23 09:50 Consult to Infectious Diseases Routine Consulting Provider: [facility] Infectious Disease Reason for consultation: +rpr (there may be hx of several years ago), ?neurologic effects HIV Has provider been notified: Yes 05/26/23 17:49 Consult to Hospitalist Routine Comment: Consulting Provider: Hospitalist Reason For Exam: vomiting x3, abd pain, urinary incontinence DS: Diagnosis Discharge Diagnosis (1) Cognitive developmental delay: Status: Acute (2) Psychosis: Status: Acute (3) Positive serological reaction for syphilis: Status: Acute DS: Medications Discharge Medications Home Medications: Home Medications Medication Instructions Recorded Confirmed alendronate 70 mg tablet 70 mg PO QWEEK 06/24/20 05/16/23 simvastatin 20 mg tablet 20 mg PO BEDTIME 06/24/20 05/16/23 acetaminophen 500 mg tablet 500 mg PO Q6H PRN Pain 01/31/21 05/16/23 bictegravir 50 mg-emtricitabine 1 tab PO DAILY 01/31/21 05/16/23 200 mg-tenofovir alafenam 25 mg tablet (Biktarvy) calcium carbonate 600 mg-vitamin 1 tab PO BID 01/31/21 05/16/23 D3 10 mcg (400 unit) tablet (Calcium 600 + D(3)) cholecalciferol (vitamin D3) 25 25 mcg PO DAILY 01/31/21 05/16/23 mcg (1,000 unit) capsule (Vitamin D3) cyanocobalamin (vitamin B-12) 1,000 mcg PO DAILY 01/31/21 05/16/23 1,000 mcg tablet (Vitamin B-12) folic acid 1 mg tablet 1 mg PO DAILY 01/31/21 05/16/23 multivit,tx with iron 27 1 tab PO DAILY 01/31/21 05/16/23 ir-btynztr-rtlfv acid 0.4 mg-minerals tablet sodium chloride 0.65 % nasal spray 1 spray intranasal BID 01/31/21 05/16/23 aerosol (Saline Nasal) albuterol sulfate 90 mcg/actuation 2 puff inhalation Q4H PRN Wheezing 03/23/21 05/16/23 aerosol inhaler famciclovir 500 mg tablet 1,000 mg PO DAILY 05/09/23 05/16/23 loperamide 2 mg capsule 2 mg PO QID PRN Loose Stool 05/09/23 05/16/23 simethicone 80 mg chewable tablet 80 mg PO BEDTIME 05/09/23 05/16/23 hydrocortisone 1 % topical cream 1 appl topical BID PRN Rash 05/16/23 05/16/23 lactase 9,000 unit chewable tablet 18,000 unit PO QIDWMHS PRN EATING 05/16/23 05/16/23 (Lactaid Fast Act) DIARY sennosides 8.6 mg-docusate sodium 2 tab-cap PO MOWEFR 05/16/23 05/16/23 50 mg tablet (Stimulant Laxative Plus) sertraline 100 mg tablet 100 mg PO DAILY 05/16/23 05/16/23 wheat dextrin 3 gram/4 gram oral 1 packet PO BID 05/16/23 05/16/23 powder (Benefiber Sugar Free (dextrin)) Previous Rx's Medication Instructions Recorded levothyroxine 75 mcg tablet 75 mcg PO QAM #28 tabs 08/31/21 oxybutynin chloride 5 mg 5 mg PO DAILY 90 days #90 tabs 02/26/23 tablet,extended release 24 hr omeprazole 20 mg tablet,delayed 20 mg PO QAM #28 tabs 05/07/23 release divalproex 500 mg tablet,delayed 500 mg PO BID 30 days #60 tabs 06/03/23 release quetiapine 200 mg tablet 200 mg PO TID 30 days #90 tabs 06/03/23 trazodone 100 mg tablet 100 mg PO BEDTIME 30 days #30 tabs 06/03/23 Mental Status Exam Mental Status Exam Narrative: Appearance: wearing casual clothing, fair hygiene, in NAD Behavior: cooperative Psychomotor: no PMA/PMR Speech: clear, normal rate/rhythm, spontaneous. increased amount and loudness. TP: less disorganized TC: requesting discharge Mood: i'm fine. Affect: labile, irritable SI: none HI: none VH/AH:denies AVH Insight/judgment: impaired x 2. Data Data Completed and Pending Completed studies during hospitalization [Text1]: 05/28/23 05/29/23 06/02/23 08:19 09:11 08:20 Ammonia 38 Valproic Acid 137.2 H* 47.4 L 77.1 05/16/23 Unknown Urine clean catch - Urine carson top Urine Culture - Final Escherichia coli Strep agalactiae (Grp B) Imaging Diagnostic Imaging Impressions Head CT 05/17/23 17:01 IMPRESSION: Unremarkable exam. DS: Summary Hospital Course Hospital Course: per 05/17 admission note: Ms. 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 This marketing writer spoke with [facility] terminal supervisor, Jessy, who reports pt has not had any symptoms of psychosis during the time that she has been residing at the penit[facility]iary. Jessy reports that change occurred gradually over the past month or so, when pt started to present with paranoia and some grandiose delusions. Pt has some medication changes by her psychiatrist, Dr. Marquise Lorenzo initially lowering seroquel from 100mg po BID to 50mg po BID, but since changes in behavior noted this medication was adjusted back to previous dose. Of note, pt has also been presenting with problems with orientation, not knowing the year or month, which Jessy reports is not her baseline and is an acute-subacute change to her presentation. In the ED- CBC was completed which shows chronic elevation of MVC without low levels of Hgb and Hct, leukopenia and low Plts. CMP shows elevated BUN 25, with normal Cr 1.10, creatinine clearance 50.2. Liver enzymes wnl. UA does show leukocitos, elevated WBC, pending culture- but will start antibiotic ceftin 250mg po BID x 7 days. On the unit, pt presents as cooperative, somewhat guarded but amenable to meet with this marketing writer. She reports she owns place where she works, she states being a boss you love people. She reports at people were calling her names and talking about her which she reports upset her. She reports she is fine. She states I only want to go home, and to [place] and [place]. When asked about reason for this trips, she states I can receive treatment there, I have airline tickets. She reports she thinks she is at [facility] [place] Pt informed this is [facility]. She reports she has 7 children, 6 daughters and one son and that she does have grandchildren. Per Jessy, pt does have grandchildren, unclear as to how many children she does have. She reports that she stopped going to work because they had ants, water leaks and rats. She looks at the floor and also reports that here in the hospital this may be a problem. As we are talking pt at times turns to side and talks to someone who is not there. Her attention is poor and needs redirection to stay on topic. She rambles about people at penitentiary going after her and not letting her see her grandchildren and calling her names. She reports she does feel safe here in the hospital: better here. Per Jessy pt has presented with poor sleep. Pt denies any physical concerns. Past Psychiatric History: Inpatient: none in past 10 years OP: [employer] Dr. Marquise Lorenzo [facility]- Cristina Castillo [phone] [facility] services too. Pt has a guardian- Frankie Domenico awaiting documents regarding guardian information Past medication trials: seroquel, sertraline, trazodone Medical Evaluation Reviewed: Yes [facility] Medical History Hypothyroidism Hx of acute pancreatitis Hx of acute renal failure History of ETOH abuse Hx of herpes genitalis History of diverticulosis Constipation History of intravenous drug abuse Developmental delay, mild COVID-19 vaccine series completed Depression PTSD (post-traumatic stress disorder) Hyperlipidemia Seasonal allergies Hx of hepatitis C HIV (human immunodeficiency virus infection) Nocturia Frequency of micturition Surgical History History of colonoscopy Family History: unknown Social History: Pt has resided at through [facility] for individuals with developmental delays. 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 She has children (unclear how many) and grandchildren that she sees with supervision. Substance History: Hx of opioid and alcohol use but in remission for more than 15 years Trauma History: hx of but unclear details Precis: 05/21- continue tx. 05/22 filed involuntary treatment as pt continues to present as labile, explosive and paranoid/some grandiose delusions and auditory hallucinations. 05/23 continues to present as labile, explosive with paranoid delusions and psychosis. will add depakote 500mg po BID for explosive, grandiose delusions. 05/24 no significant change. continue current medications. 05/25 continue current medications. 05/26: Continue current management and treatment plan. 05/27: per ID, no infectious etiology for psychosis evident. check VPA and ammonia tomorrow. otherwise continue current mgmt. hearing scheduled for 06/04. 05/28: VPA elevated at 137.2. hold dosing for 24H, decrease dosing from 750 BID to 500 BID. check level 05/29 morning. recent vomiting likely due to elevated VPA level. mood remains reactive and unstable even with supra- therapeutic VPA level, T/C adding a second mood stabilizer. 05/29 slightly calmer, less labile. less ideas of staff from calling to her ear 05/30 keep same treatment 05/31 less labile, less AH, less paranoid. will repeat depakote level on 06/03 AM 06/01 continue tx. 06/02 continue tx. depakote this AM 77. 06/03: irritable, labile. slammed door on being informed she would have to wait until tomorrow to discharge. otherwise nml behavior for her. meds reviewed, reconciled. 06/04: no change in presentation. discharged as per plan. Time Spent with Patient Time attestation: Total time managing care of this patient today ____ minutes. Time spent: Greater than 30 minutes Discharge Plan Discharge Anticipated Discharge Date/Time: 06/04/23 11:30 Patient Disposition: Home, Self-Care Discharge Diagnosis: Developmental Delay Schizoaffective Disorder, Bipolar Type Referrals: Psychiatrist [Other] - 1 Week (*[facility] intake staff have received the referral paperwork to set up your follow up psychiatry appointment. Please reach out to them to obtain this appointment once you return to the penitentiary today) Saira Hartman MD [Primary Care Provider] - 1 Week Discharge Medications: New quetiapine 200 mg Tablet 200 mg PO TID 30 Days Qty: 90 0RF divalproex 500 mg Tablet,Delayed Release (Dr/Ec) 500 mg PO BID 30 Days Qty: 60 0RF trazodone 100 mg Tablet 100 mg PO BEDTIME 30 Days Qty: 30 0RF Continued levothyroxine 75 mcg tablet 75 mcg PO QAM Qty: 28 10RF omeprazole 20 mg tablet,delayed release (DR/EC) 20 mg PO QAM Qty: 28 1RF cyanocobalamin (vitamin B-12) [Vitamin B-12] 1,000 mcg Tablet 1,000 mcg PO DAILY acetaminophen 500 mg Tablet 500 mg PO Q6H PRN (Reason: Pain) folic acid 1 mg Tablet 1 mg PO DAILY cholecalciferol (vitamin D3) [Vitamin D3] 25 mcg (1,000 unit) Capsule 25 mcg PO DAILY multivitamin,ib-szzy-Bq-FA-min 27-0.4 mg Tablet 1 tab PO DAILY Saline Nasal 0.65 % Aerosol,[place] 1 spray INTRANASAL BID calcium carbonate-vitamin D3 [Calcium 600 + D(3)] 600 mg(1,500mg) -400 unit Tablet 1 tab PO BID Biktarvy 50-200-25 mg Tablet 1 tab PO DAILY sertraline 100 mg tablet 100 mg PO DAILY hydrocortisone 1 % Cream 1 appl TOPICAL BID PRN (Reason: Rash) Lactaid Fast Act 9,000 unit Tablet,Chewable 18,000 unit PO QIDWMHS PRN (Reason: EATING DIARY) Rx Instructions: administer with meals and/or snacks Benefiber Sugar Free (dextrin) 3 gram/4 gram Powder 1 packet PO BID Rx Instructions: mix into at least 4 oz water or juice before administering sennosides-docusate sodium [Stimulant Laxative Plus] 8.6-50 mg tablet 2 tab-cap PO MOWEFR simvastatin 20 mg tablet 20 mg PO BEDTIME alendronate 70 mg tablet 70 mg PO QWEEK albuterol sulfate 90 mcg/actuation HFA aerosol inhaler 2 puff inhalation Q4H PRN (Reason: Wheezing) loperamide 2 mg capsule 2 mg PO QID PRN (Reason: Loose Stool) famciclovir 500 mg tablet 1,000 mg PO DAILY simethicone 80 mg tablet,chewable 80 mg PO BEDTIME oxybutynin chloride 5 mg tablet extended release 24hr 5 mg PO DAILY 90 Days Qty: 90 3RF Discontinued quetiapine 100 mg tablet 100 mg PO BID trazodone 100 mg tablet 200 mg PO BEDTIME Discharge Orders: Discharge Order (Routine); Ordered 06/04/23 Ordered By: Vincenzo Ho Diet: Advance to usual diet Activity on Discharge: As tolerated Stand Alone Forms: Patient Portal Discharge page, Community Support Care Plan Goals: remain safe and stable in the outpatient treatment setting Health Concerns: none Plan of Treatment: take medications as prescribed, attend appointments as scheduled Assessment: not at imminent risk of serious harm to self or others Discharge Date/Time: 06/04/23 11:30
[2023-06-03 19:40] VITALS: BP 143/62; PULSE 87; RESP 16; TEMP 36.1; O2SAT 98
[2023-06-03] MEDS: Simethicone 80 MG TAB.CHEW PO (20:09)
[2023-06-03] MEDS: traZODone HCL 100 MG TABLET PO (20:10)
[2023-06-03] MEDS: Sennosides/Docusate Sodium TABLET 2 TAB PO (20:10)
[2023-06-03] MEDS: Atorvastatin Calcium 10 MG TABLET PO (20:10)
[2023-06-04 06:00] VITALS: BP 114/84; PULSE 89; RESP 16; TEMP 36.2; O2SAT 96
[2023-06-04] MEDS: Levothyroxine Sodium 75 MCG TABLET PO (06:13)
[2023-06-04] MEDS: Psyllium seed 3.7 GM PACKET PO (08:21)
[2023-06-04] MEDS: Calcium + Vitamin D 250 MG TABLET 500 MG PO (08:21)
[2023-06-04] MEDS: QUEtiapine Fumarate 200 MG TABLET PO (08:21)
[2023-06-04] MEDS: Folic Acid 1 MG TABLET PO (08:21)
[2023-06-04] MEDS: Cholecalciferol (Vitamin D3) 25 MCG TABLET PO (08:21)
[2023-06-04] MEDS: Multivitamin TABLET 1 TAB PO (08:21)
[2023-06-04] MEDS: oxyBUTYnin chloride ER 5 MG TAB.ER.24 PO (08:21)
[2023-06-04] MEDS: Bictegrav/Emtricit/Tenofov Ala TABLET 1 TAB PO (08:21)
[2023-06-04] MEDS: Divalproex Sodium 500 MG TABLET.DR PO (08:21)
[2023-06-04] MEDS: Mineral Oil/Petrolatum,White 106 GM Tube 1 APPL TOPICAL (08:22)
[2023-06-04] MEDS: Sodium Chloride 0.65 % Nasal 44 ML SPRBTL 1 SPRAY NOSTRIL-B (08:22)
[2023-06-04] MEDS: Omeprazole 20 MG CAPSULE.DR PO (08:23)
--- NOTE | 2023-06-04 11:35 | PC.NURSE ---
Attempted to contact PCP, waiting 35 minutes, then transferred and call dropped. Pt discharged
== END 2023-06-04 11:30 | disposition home or self-care (01) | DRG 885 ==
LOC: HO.ED 16:35 → HO.PADLT16 21:44
PROVIDERS: Internal Medicine; Physician Assistant; Social Worker; Student in an Organized Health Care Education/Training Program; Admitting Provider Psychiatry & Neurology Psychiatry; Emergency Provider Student in an Organized Health Care Education/Training Program; PCP Student in an Organized Health Care Education/Training Program; Visit Provider Psychiatry & Neurology Psychiatry
DX: F29 Unspecified psychosis not due to a substance or known physiological condition (principal); F81.9 Developmental disorder of scholastic skills, unspecified; A53.0 Latent syphilis, unspecified as early or late; Z21 Asymptomatic human immunodeficiency virus [HIV] infection status; Z79.890 Hormone replacement therapy; Z79.899 Other long term (current) drug therapy
CPT/HCPCS: 36415; 70450; 80053; 80061; 80143; 80164; 80179; 80307; 81001; 81003; 82140; 82607; 83735; 84443; 85025; 86359; 86360; 86592; 86780; 87086; 87088; 87147; 87186; 87536; 87635; 87900; 87901; 87906; 93005; 99285; J1200; J1630; J2060

== ENCOUNTER → 2023-05-16 21:20 | Outpatient (BNV) | payer MEDICARE, MEDICAID, SELFPAY | PROVIDERS: Admitting Provider Psychiatry & Neurology Psychiatry; Emergency Provider Student in an Organized Health Care Education/Training Program; PCP Student in an Organized Health Care Education/Training Program; Visit Provider Internal Medicine | DX: F81.9 Developmental disorder of scholastic skills, unspecified (principal); F29 Unspecified psychosis not due to a substance or known physiological condition; A53.0 Latent syphilis, unspecified as early or late | CPT/HCPCS: 99222; 99499 ==

== ENCOUNTER → 2023-05-16 21:20 | Outpatient (BNV) | payer MEDICARE, MEDICAID, SELFPAY | PROVIDERS: Admitting Provider Psychiatry & Neurology Psychiatry; Emergency Provider Student in an Organized Health Care Education/Training Program; PCP Student in an Organized Health Care Education/Training Program; Visit Provider Psychiatry & Neurology Psychiatry | DX: F29 Unspecified psychosis not due to a substance or known physiological condition (principal); F81.9 Developmental disorder of scholastic skills, unspecified; A53.0 Latent syphilis, unspecified as early or late | CPT/HCPCS: 90792; 99231; 99232; 99239 ==

== ENCOUNTER 2023-07-11 11:47 | Outpatient (AMB) | payer MEDICARE, MEDICAID, SELFPAY ==
--- NOTE | 2023-07-11 11:59 | A.OFFVIS_ITS ---
Vital Signs 07/11/23 12:01 Height 5 ft 6 in Weight 182 lb 4 oz BMI 29.4 BP 119/62 Blood Pressure Location Lt brachial Position Sitting Pulse 83 Intake Visit Reasons: follow up Intake Note: patient follow up for Chronic Constipation. Patient cc: constipation and some problems with swallowing, abdominal pain on her right side on and off, denies any other GI issues. Senior Pl Sql Developer Required: No Accompanied by: Family/Other Allergies abacavir [ABACAVIR] Allergy (Severe, Verified 03/26/24 12:46) HIVES hydrochlorothiazide [HYDROCHLOROTHIAZIDE] Allergy (Severe, Verified 03/26/24 12:46) HIVES ibuprofen [From MOTRIN] Allergy (Severe, Verified 03/26/24 12:46) HIVES Penicillins [PENICILLINS] Allergy (Severe, Verified 03/26/24 12:46) HIVES tenofovir [From VIREAD] Allergy (Severe, Verified 03/26/24 12:46) HIVES tomato [TOMATO] Allergy (Severe, Verified 03/26/24 12:46) HIVES zidovudine [From RETROVIR] Allergy (Severe, Verified 03/26/24 12:46) HIVES lactose [Lactose] Adverse Reaction (Mild, Verified 03/26/24 12:46) DIARRHEA disoproxail Allergy (Mild, Uncoded 02/27/24 15:37) Unknown Medication List - Last Reconciled 07/11/23 by Helena Coon MD acetaminophen 500 mg PO Q6H PRN albuterol sulfate 90 mcg/actuation 2 puffs inhalation Q4H PRN alendronate 70 mg PO QWEEK iqxbgamte-wcfzrqzj-ahpwcwx ala 50-200-25 mg (Biktarvy) 1 tab PO DAILY calcium carbonate-vitamin D3 600 mg-10 mcg (400 unit) (Calcium 600 + D(3)) 1 tab PO BID cholecalciferol (vitamin D3) (Vitamin D3) 25 mcg PO DAILY cyanocobalamin (vitamin B-12) (Vitamin B-12) 1,000 mcg PO DAILY divalproex 500 mg PO BID 30 days famciclovir 1,000 mg PO DAILY folic acid 1 mg PO DAILY hydrocortisone 1% 1 appl topical BID PRN lactase (Lactaid Fast Act) 18,000 units PO QIDWMHS PRN levothyroxine 75 mcg PO QAM loperamide 2 mg PO QID PRN multivitamin,fn-azrs-Bx-FA-min 27-0.4 mg 1 tab PO DAILY omeprazole 20 mg PO QAM oxybutynin chloride ER 5 mg PO DAILY 90 days quetiapine 200 mg PO TID 30 days sennosides-docusate sodium 8.6-50 mg (Stimulant Laxative Plus) 1 tab PO 3XW sertraline 100 mg PO DAILY simethicone 80 mg PO BEDTIME simvastatin 20 mg PO BEDTIME sodium chloride 0.65% (Saline Nasal) 1 spray intranasal BID trazodone 100 mg PO BEDTIME 30 days wheat dextrin (Benefiber Sugar Free (dextrin)) 1 packet PO BID HPI HPI follow up: Details: FU GI CLINIC VISIT FOR THIS 62-YEAR-OLD FEMALE FOR FOLLOW-UP OF LIVER CIRRHOSIS WITH ELEVATED LFTS. ? CHRONIC ILLNESSES:?seasonal allergies, hepatitis C - treated, human immunodeficiency virus (HIV), positive, GERD, lactose intolerance, depression, insomnia, PTSD, herpes, prediabetic, hyperlipidemia ?PAST LABS IN [employer]:?02/16/20 REVIEWED. WBC 4.4, HEMATOCRIT 43.1 PLATELET 85, INR 1.0 ? CR 1.25, TB 0.9 nA 144, total bilirubin 0.6 WITH NORMAL LFTS ? Iron studies showed iron 73, TIBC 354, % saturation 21, ferritin 344 ? Celiac serologies were negative, IgA was 131 ? Liver fibrosis score 0.63, liver fibrosis stage F3, necroinflammatory score 0.46 ?IMAGING STUDIES: 06/28/21 abd us showed: Slightly echogenic liver. No focal liver lesion is seen. Enlarged spleen. No ascites. Normal liver Doppler exam. 08/2020Question mild cirrhotic changes of the liver. No focal liver lesion seen. Splenomegaly. ?ENDOSCOPIC STUDIES:?02/07/21 COLONOSCOPY SHOWED: One medium sized polyp removed. Random biopsies were obtained from right and left colon to check for microscopic colitis Moderate diverticulosis seen in the left colon Plan:? Patient has an appointment on 02/23/21 in the GI Clinic with? Helena Coon M.D. Repeat Colonoscopy interval based on path results - in 3 years if polyp is adenomatous and 10 years if polyp is hyperplastic. BIOPSIES SHOWED: A.? Colon, random right, biopsy:? Colonic mucosa within normal limits; negative for active, chronic or microscopic colitis. B.? Colon, random left, biopsy:? Colonic mucosa within normal limits; negative for active, chronic or microscopic colitis. C.? Rectum, polypectomy:? Clinically polypoid colonic mucosa noted; negative for a hyperplastic or neoplastic process. 09/08/19 EGD WAS NORMAL, NO VARICES WERE SEEN.? SAME-DAY COLONOSCOPY REVEALED MODERATE DIVERTICULOSIS AND NO POLYPS WERE DETECTED. ? REPEAT COLONOSCOPY IS ADVISED IN 5 YEARS DUE TO FAIR PREP AND POSITIVE FH OF COLON POLYPS (DAD). ? TODAY'S VISIT Patient cc: constipation and some problems with swallowing, abdominal pain on her right side on and off, denies any other GI issues. Pt is accompanied by a staff member of [facility] Having a BM daily with straining and hard stools Also has gas. Taking Senna 3 times a week and advised to take it every day. Notes some urinary bruning with micturation. Has a BM in the morning or afternoon every other day PAST VISIT: Had COVID in June Loosing and gaining weight. Has loose stools 2-3 times a day without blood or mucous. Notes diarrhea with cheese and milk products and takes Lactaid milk. Feels tired and notes nausea. Complains of pain in the botton of her foot. Intermittent abdominal pain. Had a BM twice this week. Has a BM after she eats ice cream or takes a Latte ? Doing about the same. Denies recurrent rectal bleeding Complains of heartburn once in a while. Occasional loose stools and takes loperamide prn. ? Has GERD and notes dysphagia if she drinks water too fast. Lives in a Residential Home setting in her own apartment in [place]. ? Has had care at [facility] in the past. ? 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 ? Also heavy ETOH use from age 18/18 till age 39 yrs - clean and sober since then. ? Renal Failure and pancreatitis in 2008. ? Had vomiting and Jaundice in 2009 - diagnosed with Hep C and ?was treated. ? Constantly tired and fatigued. ? 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 ?PAST VISIT: US results reviewed with the patient Bleeding stopped - notes only once in a while. Notes a sharp pain in her abdomen when she pushes during a BM. Notes hard stools. ?Intentional wt loss of 35 lbs - has been eating healthy - from 210 to 181 lbs. ? I am always constipated. ? Intermittent diarrhea - takes medications when she has diarrhea. ? Denies abdominal pain. ? Continues to have intermittent bleeding _ ? vaginal versus rectal ? Intermittent vaginal bleeding - 2-3 times this week. scheduled for pelvic US on 12/22/20 ? every time she wipes she notices some blood - unsure if she is bleeding from the vagina. ? ? ? Periods stopped when she was 39 yrs ? ? ? Denies having a recent Pelvic examination. ? ? ? Notices lower abdominal cramps - like menstrual cramps. ? ? ? Exercising daily (does Kavin) and weighs 183 lbs (decreased from 210 lbs). ? ? ? Eating a healthy diet. ? I am doing fine and walk around ? I am always tired ? Lost weight from > 200 to 194 ? Has been doing well and denies stomach issues at this time. ? Patient denies change in bowel habits, black stools or rectal bleeding ? Denies dysphagia, heartburn, nausea or vomiting, change in appetite?or wt PFSH Medical History Positive serological reaction for syphilis Hypothyroidism Hx of acute pancreatitis Hx of acute renal failure History of ETOH abuse Hx of herpes genitalis History of diverticulosis Constipation History of intravenous drug abuse Developmental delay, mild COVID-19 vaccine series completed Depression PTSD (post-traumatic stress disorder) Hyperlipidemia Seasonal allergies Hx of hepatitis C HIV (human immunodeficiency virus infection) Nocturia Frequency of micturition Surgical History History of colonoscopy Family History Mother Alzheimer disease Breast cancer HTN (hypertension) Paternal Aunt Breast cancer Social History Household Members: Other Household Members Other:: [employer] Housing: Group Home Housing Other:: Skilled Nursing Are you a primary senior care assistant to a significant other at home: No Do you presently have visiting nurse or other home services: Yes Alcohol intake: former Patient Tobacco Use Status: Never used Tobacco e-Cigarette/Vaping Use: Never Used Second Hand Smoke Exposure: No service: No Sexual orientation: Decline to Answer Female Reproductive History Menstrual Age of Menarche: 11 Review of Systems Const All systems reviewed & are unremarkable except as noted in HPI and below Physical Exam Vital Signs: Last Vital Signs Pulse 83 07/11/23 12:01 BP 119/62 07/11/23 12:01 BMI result Body Mass Index 29.4 Const General: healthy appearing and no acute distress Nutritional Appearance: overweight Orientation/consciousness: patient oriented x3 Limitations: other limitations (Developmental delay) HEENT Head: Yes normal to inspection Ears: hearing grossly normal bilaterally Eyes Sclerae: sclerae normal Pupils: Equal, round and reactive pupils present Neck Neck: Yes normal visual inspection Chest Chest palpation & inspection: normal inspection of the chest Resp Effort & Inspection: normal respiratory effort Auscultation: clear to auscultation bilaterally Cardio Palpation: normal PMI Rate: regular rate Rhythm: regular rhythm Heart sounds: S1 normal heart sound present, S2 normal heart sound present and no murmurs GI Palpation (GI): Soft to palpation, nontender and No hepatosplenomegaly present Auscultation: normal bowel sounds Rectal Exam - Female: deferred Skin General skin exam: no rashes or lesions noted Neuro General: patient oriented x3, gait normal and moves all extremities Cranial nerves: Yes Equal, round and reactive pupils present Psych Appearance: grossly normal Mental Status: mental status grossly normal Assessment & Plan Assessment & Plan (1) Chronic constipation: Code(s): K59.09 - Other constipation Category: Medical (2) Thrombocytopenia: Code(s): D69.6 - Thrombocytopenia, unspecified Category: Medical (3) GERD (gastroesophageal reflux disease): Code(s): K21.9 - Gastro-esophageal reflux disease without esophagitis Category: Medical (4) Cirrhosis of liver without ascites: Code(s): K74.60 - Unspecified cirrhosis of liver Category: Medical (5) Colon cancer screening: Comment: 09/24 COLONOSCOPY REVEALED MODERATE DIVERTICULOSIS AND NO POLYPS WERE DETECTED. REPEAT COLONOSCOPY IS ADVISED IN 5 YEARS DUE TO FAIR PREP AND POSITIVE FH OF COLON POLYPS (DAD) - action set in [facility] Code(s): Z12.11 - Encounter for screening for malignant neoplasm of colon Category: Medical Plan 62 YF with seasonal allergies, hepatitis C - treated, human immunodeficiency virus (HIV), positive, GERD, lactose intolerance, depression, insomnia, PTSD, herpes, prediabetic, hyperlipidemia seen for elevated LFTs with cirrhosis. Patient is on treatment for HIV. She has a history of past hepatitis C which has been treated (records pertaining to treatment are not available) since recent hepatitis C viral load has been negative. Past lab evaluation with [facility] was negative 2017. Likely cause of elevated LFT is steatohepatitis related to obesity - LFT are normal since she lost 27 lbs. Iron studies were not suggestive of hemochromatosis and celiac serologies were normal. Liver fibrosis score was 0.63 and liver fibrosis stage was F3 and necroinflammatory score was 0.46 indicating that she may have compensated cirrhosis. Cirrhosis is likely multifactorial - steatohepatitis, past EtOH use and hepatitis C infection. MELD score is 8. Abdominal ultrasound showed mild splenomegaly without hepatic mass and no ascites. Patient admits to intentional weight loss with the normalization of LFTs indicating elevated LFTs were likely due to steatohepatitis. 05/09/23 Pt complains of worsening constipation. She was advised to increase Senna plus to 2 capsules at bedtime for constipation Schedule an abd US for HCC surveillance. Patient was advised to schedule an abdominal US and follow up in 2 month 07/11/23 Having a BM daily with straining and hard stools Also has gas. Taking Senna 3 times a week and advised to take it every day. FU in 4 months Medications: Changed From sennosides-docusate sodium 8.6-50 mg 1 tab PO 3XW 12 tabs 0RF K59.09 - Other constipation To sennosides-docusate sodium 8.6-50 mg (Stimulant Laxative Plus) 1 tab PO BEDTIME 60 tabs 3RF 60 days K59.09 - Other constipation Coding Level of Care Code Est Pt Level 4 (80268) Diagnoses Chronic constipation K59.09 Thrombocytopenia D69.6 GERD (gastroesophageal reflux disease) K21.9 Cirrhosis of liver without ascites K74.60 Colon cancer screening Z12.11 Time Spent (min) 23
[2023-07-11 12:01] VITALS: BP 119/62; PULSE 83; BMI 29.4
== END 2023-07-11 13:48 | disposition home or self-care (01) ==
PROVIDERS: PCP Student in an Organized Health Care Education/Training Program; Visit Provider Internal Medicine Gastroenterology
DX: K59.09 Other constipation (principal); D69.6 Thrombocytopenia, unspecified; K21.9 Gastro-esophageal reflux disease without esophagitis; K74.60 Unspecified cirrhosis of liver; Z12.11 Encounter for screening for malignant neoplasm of colon
CPT/HCPCS: 99214

== ENCOUNTER → 2023-07-11 11:47 | Outpatient (BNVA) | payer MEDICARE, MEDICAID, SELFPAY | PROVIDERS: PCP Student in an Organized Health Care Education/Training Program; Visit Provider Internal Medicine Gastroenterology | DX: K59.09 Other constipation (principal); D69.6 Thrombocytopenia, unspecified; K21.9 Gastro-esophageal reflux disease without esophagitis; K74.60 Unspecified cirrhosis of liver; Z79.899 Other long term (current) drug therapy | CPT/HCPCS: 99212 ==

== ENCOUNTER 2023-08-12 13:07 | Outpatient (REF) | payer MEDICARE, MEDICAID, SELFPAY ==
[2023-08-12 16:14] LABS: Appearance Urine Cloudy; Color Urine Yellow; Glucose Urine UA Negative (Negative); Leukocyte Esterase Urine Moderate (2+) (Negative); Nitrite Urine Negative (Negative); UMIC TRIGGER UACC YES; Urine Blood Trace (Negative); Urine Ketones Trace mg/dL (Negative); Urine Protein Trace mg/dL (Neg-Trace)
[2023-08-12 16:18] LABS: Bacteria Urine Trace (None Seen); Hyaline Casts Urine 0-2 /LPF (0-2); Squamous Epithelial Cell Urine 0-2 /HPF (0-2); UACC Culture Trigger YES; WBC Urine >50 /HPF (0-5)
[2023-08-12 17:37] LABS: MANUAL DIFF FLAG NO
[2023-08-12 17:41] LABS: Basophils Percent Auto 0.3 % (0-2); Eosinophils Percent Auto 0.5 % (0-4); Hemoglobin 12.4 g/dl (12.0-16.0); Imm Gran Abs Auto 0.02 X10*3/uL (0.00-0.03); Imm Gran Pct Auto 0.5 % (0.0-0.4); Lymphocytes Absolute Auto 1.3 X10*3/uL (1.2-4.9); Lymphocytes Percent Auto 34.3 % (20-40); Mean Corpuscular HGB Conc 33.5 g/dl (31.0-35.0); Mean Corpuscular Hemoglobin 35.4 pg (27.0-33.0); Mean Corpuscular Volume 105.7 fL (80.0-98.0); Mean Platelet Volume 9.6 fL (9.4-12.3); Monocytes Absolute Auto 0.2 X10*3/uL (0.1-1.2); Monocytes Percent Auto 4.9 % (2-11); Neutrophils Absolute Auto 2.2 x10*3/uL (2.0-8.3); Neutrophils Percent Auto 59.5 % (45-73); Platelet Count 70 X10*3/uL (160-400); Red Cell Distribution Width 13.8 % (11.0-16.0); White Blood Count 3.6 X10*3/uL (4.8-10.8)
[2023-08-12 17:49] LABS: CT PCR NOT DETECTED (Not Detect.); NG PCR NOT DETECTED (Not Detect.)
[2023-08-12 17:52] LABS: Alanine Aminotransferase 16 U/L (0-31); Albumin Level 4.3 g/dL (3.5-5.0); Alkaline Phosphatase 38 U/L (39-117); Anion Gap 14 (12-20); Aspartate Amino Transferase 27 U/L (5-31); Bilirubin Total 0.6 mg/dL (0.0-1.0); Blood Urea Nitrogen 25 mg/dL (9-16); Calcium 9.5 mg/dL (8.4-10.2); Carbon Dioxide 26 mmol/L (22-29); Chloride 104 mmol/L (96-108); Estimated Glomerular Filt Rate 36; Glucose Random 95 mg/dL (60-115); Potassium 4.2 mmol/L (3.3-5.1); Sodium 140 mmol/L (135-145); Total Protein 7.3 g/dL (6.5-8.0)
[2023-08-12 17:53] LABS: Estimated Average Glucose 103 mg/dL; Hemoglobin A1c % 5.2 % (<6.0)
[2023-08-13 07:29] LABS: Syphilis Screen Reactive (Nonreactive)
[2023-08-13 07:42] LABS: HBS Num1 16.14 mIU/mL (0-7.99); HBc Num1 0.32 S/CO (0.00-0.79); HBsAGNum1 0.45 S/CO (0.00-0.99); Hepatitis B Core Antibody Nonreactive (Nonreactive); Hepatitis B Surface Antigen Negative (Negative); ~HepC Num1 4.49 S/CO (0.00-0.79); ~Hepatitis B Surface Antibody REACTIVE (Nonreactive); ~Hepatitis C Antibody Reactive (Nonreactive)
[2023-08-13 07:59] LABS: Hepatitis A Antibody IgG REACTIVE (Nonreactive); ~Hepatitis A Antibody IgG 8.31 S/CO (0.00-0.99)
[2023-08-13 11:02] LABS: TSH reflex Free T4 2.85 uIU/mL (0.32-4.0)
[2023-08-13 13:54] LABS: Alpha Fetoprotein 2.5 ng/mL
[2023-08-13 16:00] LABS: Folate > 20.0 ng/mL (> or = 4.0); Vitamin B12 > 2000 pg/mL (200-900)
[2023-08-13 16:33] LABS: Rubella IgG Antibody 1.61 Index; Rubeola IgG (Measles) >300.00 AU/mL
[2023-08-13 20:33] LABS: Trichomonas vaginalis RNA NOT DETECTED (NOT DETECTED)
[2023-08-14 08:58] LABS: Absolute CD3 Count 1094 cells/uL (840-3060); Absolute CD4 Count 609 cells/uL (490-1740); Absolute CD8 Count 502 cells/uL (180-1170); Absolute Lymphocytes 1232 cells/uL (850-3900); CD4 CD8 Ratio 1.21 (0.86-5.00); Percent CD3 Cells 89 % (57-85); Percent CD4 Cells 49 % (30-61); Percent CD8 Cells 41 % (12-42)
[2023-08-14 09:24] LABS: Varicella IgG Antibody >4000.00 index
[2023-08-14 20:34] LABS: HIV RNA PCR Qn Copies 43 copies/mL (NOT DETECTED); HIV RNA PCR Qn Log Copies 1.63 (NOT DETECTED)
[2023-08-14 22:08] LABS: TS Negative Control Passed; TS Panel A 3; TS Panel B 0; TS Positive Control Passed; TSpotTB Negative (Negative)
[2023-08-15 18:24] LABS: HCV Log PCR <1.18 NOT DETECTED Log IU/mL (NOT DETECTED); HepC Viral Load <15 NOT DETECTED IU/mL (NOT DETECTED)
[2023-08-19 14:58] LABS: RPR Quantitative Non-Reactive (Nonreactive); T.Pallidum Particle Agg Test Reactive (Nonreactive)
== END 2023-08-12 13:08 | disposition home or self-care (01) ==
LOC: HO.HHCL 13:07
PROVIDERS: Visit Provider Student in an Organized Health Care Education/Training Program
DX: B20 Human immunodeficiency virus [HIV] disease (principal); K74.60 Unspecified cirrhosis of liver
CPT/HCPCS: 0353U; 36415; 80053; 81001; 82105; 82607; 82746; 83036; 84443; 85025; 86359; 86360; 86481; 86592; 86704; 86706; 86708; 86735; 86762; 86765; 86780; 86787; 86803; 87086; 87088; 87186; 87340; 87522; 87536; 87661

== ENCOUNTER 2023-08-22 16:08 | Outpatient (REF) | payer MEDICARE, MEDICAID, SELFPAY ==
[2023-08-22 17:51] LABS: Appearance Urine Clear; Color Urine Yellow; Glucose Urine UA Negative (Negative); Leukocyte Esterase Urine Moderate (2+) (Negative); Nitrite Urine Negative (Negative); PH 6.5 (5.0-9.0); UMIC TRIGGER UACC YES; Urine Blood Small (1+) (Negative); Urine Ketones Trace mg/dL (Negative); Urine Protein Trace mg/dL (Neg-Trace)
[2023-08-22 17:56] LABS: Bacteria Urine None Seen (None Seen); Hyaline Casts Urine 0-2 /LPF (0-2); Squamous Epithelial Cell Urine 0-2 /HPF (0-2); UACC Culture Trigger YES; WBC Urine >50 /HPF (0-5)
[2023-08-22 18:08] LABS: Alanine Aminotransferase 14 U/L (0-31); Alkaline Phosphatase 44 U/L (39-117); Anion Gap 12 (12-20); Aspartate Amino Transferase 22 U/L (5-31); Bilirubin Total 0.4 mg/dL (0.0-1.0); Blood Urea Nitrogen 28 mg/dL (9-16); Calcium 8.7 mg/dL (8.4-10.2); Carbon Dioxide 26 mmol/L (22-29); Chloride 107 mmol/L (96-108); Estimated Glomerular Filt Rate 38; Glucose Random 143 mg/dL (60-115); Potassium 4.3 mmol/L (3.3-5.1); Sodium 141 mmol/L (135-145); Total Protein 6.9 g/dL (6.5-8.0)
[2023-08-22 18:25] LABS: TSH reflex Free T4 4.48 uIU/mL (0.32-4.0)
[2023-08-22 18:35] LABS: Folate 16.4 ng/mL (> or = 4.0); Vitamin B12 > 2000 pg/mL (200-900)
[2023-08-22 19:53] LABS: Free T4 (Free Thyroxine) 0.77 ng/dL (0.71-1.85)
== END 2023-08-22 16:09 | disposition home or self-care (01) ==
LOC: HO.LAB 16:08
PROVIDERS: PCP Student in an Organized Health Care Education/Training Program; Visit Provider Student in an Organized Health Care Education/Training Program
DX: N17.9 Acute kidney failure, unspecified (principal); B20 Human immunodeficiency virus [HIV] disease
CPT/HCPCS: 36415; 80053; 81001; 82607; 82746; 84439; 84443; 87086; 87088; 87186

== ENCOUNTER 2023-09-04 10:08 | Outpatient (REF) | payer MEDICARE, MEDICAID, SELFPAY ==
--- NOTE | ~2023-09-04 | US_ITS ---
EXAMINATION: US ABDOMEN COMPLETE CLINICAL INFORMATION: Patient with cirrhosis needs liver cancer surveillance ultrasound. COMPARISON: Ultrasound abdomen complete 06/28/2021 and 08/24/2020. CT abdomen and pelvis 03/29/2015. TECHNIQUE: Real-time imaging of the abdominal viscera. FINDINGS: PANCREAS: Unremarkable. ABDOMINAL AORTA: The proximal, mid, and distal segments are normal in caliber. INFERIOR VENA CAVA: Visualized portions are normal. LIVER: The liver is upper normal in size, with a longitudinal span of 16.1 cm. The liver contour is mildly lobulated. There is diffuse increased liver parenchymal echogenicity. No focal hepatic lesion. There is no intrahepatic biliary duct dilatation seen. The mean portal vein is somewhat prominent, and a caliber of 1.6 cm. GALLBLADDER: There is mild layering echogenic bile. The gallbladder is physiologically distended without evidence of stones, polyps, wall thickening or pericholecystic fluid. COMMON BILE DUCT: Normal in caliber measuring 0.3 cm in diameter. RIGHT KIDNEY: At the lower pole, a 6 x 4 x 5 mm anechoic cyst is seen with small wall calcifications. There is an adjacent 4 mm benign, simple cyst. No hydronephrosis. The kidney measures 9.9 cm in maximum dimension. LEFT KIDNEY: Unremarkable. No hydronephrosis. No renal calculi or focal parenchymal lesions. The kidney measures 12.4 cm in maximum dimension. SPLEEN: There are splenic varices. The spleen measures 14.3 cm in maximum dimension. FREE FLUID: None. US/US abdomen complete IMPRESSION: 1. There are hepatic ultrasound features consistent with the provided history of cirrhosis. No focal hepatic mass or intrahepatic biliary ductal dilatation is seen. There are findings consistent with portal hypertension. 2. A 6 mm mildly complex right renal cyst is seen, with small wall calcification. This is new from prior imaging. If of continued clinical concern, this could be further evaluated with dedicated CT or MRI (renal mass protocol).
== END 2023-09-04 10:09 | disposition home or self-care (01) ==
LOC: HO.US 10:08
PROVIDERS: PCP Student in an Organized Health Care Education/Training Program; Visit Provider Student in an Organized Health Care Education/Training Program
DX: K74.60 Unspecified cirrhosis of liver (principal)
CPT/HCPCS: 76700

== ENCOUNTER 2023-09-06 12:15 | Outpatient (REF) | payer MEDICARE, MEDICAID, SELFPAY | END 2023-09-06 12:16 | disposition home or self-care (01) | LOC: HO.SH 12:15 | PROVIDERS: PCP Nurse Practitioner Primary Care; Visit Provider Nurse Practitioner Primary Care | DX: H90.3 Sensorineural hearing loss, bilateral (principal) | CPT/HCPCS: 92552; 92556 ==

== ENCOUNTER 2023-09-23 16:28 | Outpatient (REF) | payer MEDICARE, MEDICAID, SELFPAY ==
[2023-09-23 17:34] LABS: Alanine Aminotransferase 13 U/L (0-31); Albumin Level 3.9 g/dL (3.5-5.0); Alkaline Phosphatase 38 U/L (39-117); Anion Gap 11 (12-20); Aspartate Amino Transferase 23 U/L (5-31); Bilirubin Total 0.5 mg/dL (0.0-1.0); Blood Urea Nitrogen 30 mg/dL (9-16); Calcium 8.6 mg/dL (8.4-10.2); Carbon Dioxide 28 mmol/L (22-29); Chloride 106 mmol/L (96-108); Estimated Glomerular Filt Rate 37; Glucose Random 162 mg/dL (60-115); Potassium 4.1 mmol/L (3.3-5.1); Sodium 141 mmol/L (135-145)
== END 2023-09-23 16:29 | disposition home or self-care (01) ==
LOC: HO.LAB 16:28
PROVIDERS: PCP Nurse Practitioner Primary Care; Visit Provider Student in an Organized Health Care Education/Training Program
DX: N17.9 Acute kidney failure, unspecified (principal)
CPT/HCPCS: 36415; 80053

== ENCOUNTER 2023-10-11 13:10 | Outpatient (AMB) | payer MEDICARE, MEDICAID, SELFPAY ==
[2023-10-11 13:21] VITALS: BP 110/70; PULSE 84; O2SAT 96; BMI 30.7
--- NOTE | 2023-10-11 13:21 | HO.NEPHOV_ITS ---
HPI HPI Comments History of Present Illness Details I had the privilege of seeing Adrianne accompanied by caregiver from the [facility], in consultation for decline in GFR. She has been having mild CKD for a long time. She has history of hepatitis C which has been treated. She is on antiretrovirals for HIV. She is compliant with her medications. She is not known to have any proteinuria. He has been taking proton pump inhibitor for a long time. She is also on a famciclovir. Her serum creatinine has gone up lately. She denies any nausea, vomiting, diarrhea, shortness of breath, proximal nocturnal dyspnea, orthopnea, pedal edema, hematuria, nephrolithiasis or urinary symptoms. She does not have any orthostasis. She is not hypertensive. She has history of liver cirrhosis which is compensated now. She does not take any nonsteroidal anti-inflammatories. She has no hematemesis or melena. She has not had any recurrent sinusitis, epistaxis, hemoptysis, hematuria, photosensitivity, skin rashes. Her recent serum creatinine was 1.43. [facility] Medical History (Updated 10/15/23 @ 13:04 by Ronald Mistry MD) Positive serological reaction for syphilis Hypothyroidism Hx of acute pancreatitis Hx of acute renal failure History of ETOH abuse Hx of herpes genitalis History of diverticulosis Constipation History of intravenous drug abuse Developmental delay, mild COVID-19 vaccine series completed Depression PTSD (post-traumatic stress disorder) Hyperlipidemia Seasonal allergies Hx of hepatitis C HIV (human immunodeficiency virus infection) Nocturia Frequency of micturition Surgical History History of colonoscopy Family History Mother Breast cancer HTN (hypertension) Alzheimer disease Social History Household Members: Other Household Members Other:: [employer] Housing: [facility] Housing Other:: Pen[facility]entiary Are you a primary manager critical care to a significant other at home: No Do you presently have visiting nurse or other home services: Yes Alcohol intake: former Patient Tobacco Use Status: Never used Tobacco e-Cigarette/Vaping Use: Never Used Second Hand Smoke Exposure: No service: No Sexual orientation: Decline to Answer Female Reproductive History Menstrual Age of Menarche: 11 Vital Signs 10/11/23 13:21 Height 5 ft 6 in Weight 190 lb BMI 30.7 BP 110/70 Blood Pressure Location Lt brachial Position Sitting Pulse 84 Pulse Source Pulse Oximeter Pulse Oximetry (%) 96 Oxygen Delivery Method Room Air Physical Exam Vital Signs: Last Vital Signs Pulse 84 10/11/23 13:21 BP 110/70 10/11/23 13:21 Pulse Ox 96 10/11/23 13:21 Oxygen Delivery Method Room Air 10/11/23 13:21 BMI result Body Mass Index 30.7 Const General: comfortable and no acute distress Orientation/consciousness: patient oriented x3 HEENT Head: Yes normocephalic Mouth: Normal oral and palatal mucosa present Eyes EOM: EOMs intact bilaterally Neck Neck: Yes supple Resp Auscultation: clear to auscultation bilaterally Cardio Jugular venous distension: no JVD Rate: regular rate GI Palpation (GI): Soft to palpation Auscultation: normal bowel sounds General: Yes no CVA tenderness Back/Spine/Pelvis Back: no CVA tenderness Skin General skin exam: no rashes or lesions noted Neuro General: patient oriented x3 and moves all extremities Extrem General: Yes no pedal edema Assessment & Plan Assessment & Plan (1) Acute kidney injury: Code(s): N17.9 - Acute kidney failure, unspecified (2) Chronic kidney disease, stage 3, mod decreased GFR: Code(s): N18.30 - Chronic kidney disease, stage 3 unspecified Qualifiers: Chronic kidney disease stage 3 subtype: stage 3a (GFR 45-59) Qualified Code(s): N18.31 - Chronic kidney disease, stage 3a (3) Renal cyst: Code(s): N28.1 - Cyst of kidney, acquired Plan Adrianne has CKD due to unknown etiology. She has history of hepatitis C which has been treated. She has HIV and is on anti-retroviral medications. She is not known to have any significant proteinuria. She is known to have cirrhosis but compensated now. Her serum creatinine has gone up to 1.43. Differential diagnosis for decline in GFR is quite broad. Most likely she had tubular dysfunction. Her serum creatinine is currently stable. I have ordered workup by blood work as well as renal imaging. She may need a renal biopsy. I did not make any medication changes today. She is not on any MATTIE inhibitor, ARB or nonsteroidal anti-inflammatories. She is going to be followed up with me in a month for continued care. Further management is pending evolving data Orders: Orders Creatinine 10/11/23 N17.9 - Acute kidney failure, unspecified Calcium 10/11/23 N17.9 - Acute kidney failure, unspecified Proteinase 3 PR3 Antibodies 10/11/23 N17.9 - Acute kidney failure, unspecified Anti Glomerular Basement Memb 10/11/23 N17.9 - Acute kidney failure, unspecifie d Complement C3 10/11/23 N17.9 - Acute kidney failure, unspecified Immunofixation Pnl, Serum 10/11/23 N17.9 - Acute kidney failure, unspecified Cryoglobulin 10/11/23 N17.9 - Acute kidney failure, unspecified Blood Urea Nitrogen 10/11/23 N17.9 - Acute kidney failure, unspecified Electrolytes 10/11/23 N17.9 - Acute kidney failure, unspecified Anti DNA DS Antibody 10/11/23 N17.9 - Acute kidney failure, unspecified Myeloperoxidase Antibody 10/11/23 N17.9 - Acute kidney failure, unspecified Complement C4 10/11/23 N17.9 - Acute kidney failure, unspecified Phospholipase A2 Receptor Pnl 10/11/23 N17.9 - Acute kidney failure, unspecified Complete Blood Count Auto Diff 10/11/23 N17.9 - Acute kidney failure, unspecified Complete Blood Count Auto Diff 3 Weeks N17.9 - Acute kidney failure, unspecified Prothrombin Time INR 10/11/23 N17.9 - Acute kidney failure, unspecified US renal BI 10/11/23 N17.9 - Acute kidney failure, unspecified Coding Level of Care Code New Pt Level 4 (13071) Diagnoses Acute kidney injury N17.9 Stage 3a chronic kidney disease N18.31 Chronic kidney disease stage 3 subtype: stage 3a (GFR 45-59) Renal cyst N28.1 Results Reviewed Nephrology Results: Hgb 12.4 g/dl (12.0-16.0) 08/12/23 WBC 3.6 X10*3/uL (4.8-10.8) L 08/12/23 Plt Count 70 X10*3/uL (160-400) L 08/12/23 Sodium 141 mmol/L (135-145) 09/23/23 Potassium 4.1 mmol/L (3.3-5.1) 09/23/23 Chloride 106 mmol/L (96-108) 09/23/23 Carbon Dioxide 28 mmol/L (22-29) 09/23/23 BUN 30 mg/dL (9-16) H 09/23/23 Creatinine 1.43 mg/dL (0.5-1.4) H 09/23/23 Calcium 8.6 mg/dL (8.4-10.2) 09/23/23 Urine Protein Trace mg/dL (Neg-Trace) 08/22/23
== END 2023-10-11 13:49 | disposition home or self-care (01) ==
LOC: HO.HKA 13:10
PROVIDERS: PCP Nurse Practitioner Primary Care; Visit Provider Internal Medicine Nephrology
DX: N17.9 Acute kidney failure, unspecified (principal); N18.31 Chronic kidney disease, stage 3a; N28.1 Cyst of kidney, acquired
CPT/HCPCS: 99204

== ENCOUNTER → 2023-10-11 13:10 | Outpatient (BNVA) | payer MEDICARE, MEDICAID, SELFPAY | PROVIDERS: PCP Nurse Practitioner Primary Care; Visit Provider Internal Medicine Nephrology | DX: N17.9 Acute kidney failure, unspecified (principal); N18.31 Chronic kidney disease, stage 3a; N28.1 Cyst of kidney, acquired | CPT/HCPCS: 99202 ==

== ENCOUNTER 2023-10-22 13:15 | Outpatient (REF) | payer MEDICARE, MEDICAID, SELFPAY ==
--- NOTE | ~2023-10-22 | US_ITS ---
EXAMINATION: US RETROPERITONEAL LIMITED (RENAL ONLY) CLINICAL INFORMATION: Acute kidney failure, unspecified. COMPARISON: Abdominal ultrasound 09/04/2023 TECHNIQUE: Real-time ultrasound of the kidneys. FINDINGS: RIGHT KIDNEY: 10.9 x 5.6 x 6.1 cm (SAG x AP x TRV). The kidney is normal in size, contour, and echogenicity. Renal cortical thickness is normal. No calculi. 0.7 x 0.6 x 0.6 cm cyst with layering milk of calcium is seen in the lower pole. No imaging follow-up is recommended. There is question of mild hydronephrosis. LEFT KIDNEY: 11.9 x 4.7 x 4.7 cm (SAG x AP x TRV). The kidney is normal in size, contour, and echogenicity. Renal cortical thickness is normal. No calculi or focal parenchymal lesions. No hydronephrosis. US/US renal BI IMPRESSION: 1. Question of mild right hydronephrosis. CT scan could be obtained for further evaluation. 2. Normal appearance of the left kidney.
== END 2023-10-22 13:16 | disposition home or self-care (01) ==
LOC: HO.US 13:15
PROVIDERS: PCP Nurse Practitioner Primary Care; Visit Provider Internal Medicine Nephrology
DX: N17.9 Acute kidney failure, unspecified (principal)
CPT/HCPCS: 76775

== ENCOUNTER 2023-10-25 10:59 | Outpatient (REF) | payer MEDICARE, MEDICAID, SELFPAY ==
[2023-10-25 11:33] LABS: MANUAL DIFF FLAG NO
[2023-10-25 12:01] LABS: Prothrombin Time 12.2 SEC (11.1-13.3)
[2023-10-25 12:18] LABS: Eosinophils Percent Auto 0.3 % (0-4); Eosinophils Percent Auto 0.4 % (0-4); Hematocrit 37.8 % (37.0-47.0); Hematocrit 38.5 % (37.0-47.0); Hemoglobin 13.2 g/dl (12.0-16.0); Hemoglobin 13.4 g/dl (12.0-16.0); Imm Gran Abs Auto 0.01 X10*3/uL (0.00-0.03); Imm Gran Abs Auto 0.02 X10*3/uL (0.00-0.03); Imm Gran Pct Auto 0.4 % (0.0-0.4); Imm Gran Pct Auto 0.7 % (0.0-0.4); Lymphocytes Absolute Auto 1.1 X10*3/uL (1.2-4.9); Lymphocytes Percent Auto 36.3 % (20-40); Lymphocytes Percent Auto 36.5 % (20-40); Mean Corpuscular HGB Conc 34.8 g/dl (31.0-35.0); Mean Corpuscular HGB Conc 34.9 g/dl (31.0-35.0); Mean Corpuscular Hemoglobin 37.9 pg (27.0-33.0); Mean Corpuscular Hemoglobin 38.3 pg (27.0-33.0); Mean Corpuscular Volume 108.8 fL (80.0-98.0); Mean Corpuscular Volume 109.6 fL (80.0-98.0); Mean Platelet Volume 8.8 fL (9.4-12.3); Mean Platelet Volume 9.2 fL (9.4-12.3); Monocytes Absolute Auto 0.1 X10*3/uL (0.1-1.2); Monocytes Absolute Auto 0.2 X10*3/uL (0.1-1.2); Monocytes Percent Auto 5.5 % (2-11); Neutrophils Absolute Auto 1.6 x10*3/uL (2.0-8.3); Neutrophils Absolute Auto 1.7 x10*3/uL (2.0-8.3); Neutrophils Percent Auto 57.2 % (45-73); Neutrophils Percent Auto 57.7 % (45-73); Platelet Count 51 X10*3/uL (160-400); Platelet Count 53 X10*3/uL (160-400); Red Blood Count 3.45 X10*6/uL (4.20-5.50); Red Blood Count 3.54 X10*6/uL (4.20-5.50); Red Cell Distribution Width 12.6 % (11.0-16.0); White Blood Count 2.8 X10*3/uL (4.8-10.8); White Blood Count 2.9 X10*3/uL (4.8-10.8)
[2023-10-25 12:43] LABS: Free T4 (Free Thyroxine) 0.86 ng/dL (0.71-1.85)
[2023-10-25 12:45] LABS: Thyroid Stimulating Hormone 3.26 uIU/mL (0.32-4.0)
[2023-10-25 12:47] LABS: Anion Gap 13 (12-20); Blood Urea Nitrogen 29 mg/dL (9-16); Calcium 9.3 mg/dL (8.4-10.2); Carbon Dioxide 27 mmol/L (22-29); Chloride 105 mmol/L (96-108); Estimated Glomerular Filt Rate 39; Sodium 141 mmol/L (135-145)
[2023-10-25 13:21] LABS: Valproate 122.1 mcg/mL (50.0-100.0)
[2023-10-26 10:14] LABS: Prolactin 8.5 ng/mL
[2023-10-30 11:59] LABS: Complement C3 119 mg/dL (83-193)
[2023-10-31 12:05] LABS: IgA 133 mg/dL (70-320); IgG 1363 mg/dL (600-1540); IgM 135 mg/dL (50-300)
[2023-10-31 16:43] LABS: Anti DNA DS Antibody 16 IU/mL; Anti Glomerular Basement Memb <1.0 AI; Myeloperoxidase Antibody <1.0 AI; Proteinase 3 PR3 Antibodies <1.0 AI
[2023-11-02 14:04] LABS: Phospholipase A2 IgG ELISA <4 RU/mL; Phospholipase A2 IgG IFA NEGATIVE (NEGATIVE)
== END 2023-10-25 11:00 | disposition home or self-care (01) ==
LOC: HO.LAB 10:59
PROVIDERS: Internal Medicine Nephrology; PCP Nurse Practitioner Primary Care; Visit Provider Nurse Practitioner Psychiatric/Mental Health
DX: N17.9 Acute kidney failure, unspecified (principal); F43.20 Adjustment disorder, unspecified
CPT/HCPCS: 36415; 80051; 80164; 82310; 82565; 82595; 82784; 83520; 84146; 84439; 84443; 84520; 85025; 85027; 85610; 86021; 86160; 86225; 86255; 86334

== ENCOUNTER → 2023-10-29 09:07 | Outpatient (BNV) | payer MEDICARE, MEDICAID, SELFPAY | PROVIDERS: PCP Nurse Practitioner Primary Care; Visit Provider Internal Medicine Medical Oncology | DX: D69.9 Hemorrhagic condition, unspecified (principal) | CPT/HCPCS: 99204; 99213 ==

== ENCOUNTER 2023-11-06 12:52 | Outpatient (REF) | payer MEDICARE, MEDICAID, SELFPAY ==
--- NOTE | 2023-11-06 14:05 | MHC.AU.HA1 ---
Hearing Aid Evaluation Date of Visit: 11/06/23 Historical Information: Description of Hearing: Mild to moderate sensorineural hearing loss, bilaterally Current personal amplification information: Phonak Leandro B50-M fit in November 2018 Summary: Adrianne was accompanied by her [facility] staff, Xiomara. Adrianne is ready to pursue new hearing aids due to age of her current pair. She reported that this time, she wants a hearing aid that goes all in her ear (no [id number] portion). She sometimes still wears a mask, which has caused issues with her BTE hearing aids. Impressions taken, bilaterally, without incident - Adrianne was sensitive during otoblock placement. Adrianne opted to trail custom, rechargeable ITCs to also avoid the hassle of changing the battery. Adrianne reported she is not currently using her BTE hearing aids because the ear molds are uncomfortable. Adrianne had difficulty inserting the helix portion of the ear molds. Modified earmolds by cutting off skeleton portion and fitting more similar to canal ear mold to use in the meantime. Adrianne was satisfied with fit and comfort of modified ear molds. Hearing Aid Prescription: Based on the individual?s shared listening needs, communication environments, dexterity, desire for connectivity, and personal preferences, the following prescription for amplification has been made: Right ear: Make, Model, Color: [id number] AI 1600 ITC-R Color: [place]iente Battery Size: Rechargeable Left ear: Left ear prescription to be same as Right Hearing Aid above: Make, Model, Color: Leni Tanya AI 1600 ITC-R Color: [place]iente Battery Size: Rechargeable Accessories/Assistive Technology: Mineralogy Professor Plan of Care: Patient wishes to purchase hearing aids as prescribed Action Taken/Action Needed: Medical Clearance to be requested from PCP/ENT. Hearing Instrument Fitting to be scheduled when materials arrive Primary Diagnosis: H90.3 Bilateral Sensorineural Hearing Loss Signature: Provider: Augustus Gaitan, [facility]
--- NOTE | 2023-11-06 14:07 | MHC.AU.MED ---
Medical Clearance for Hearing Instrumentation Date: 11/06/23 Patient Name: Adrianne Caballero Date of : 1960 Primary Care Provider: Nina Lindsay NP We have seen your patient on 11/06/23 and have determined that they are a candidate for amplification (See accompanying report). Specifically, they would benefit from: Hearing aid use in both ears There is a statute that addresses Medical Evaluation Requirements prior to fitting a patient with a hearing aid. According to [place] statute 265 CMR:6.03(1), (a) General. Except as provided in 265 CMR 6.03(1)(b), a well shooter shall not sell a hearing aid unless the prospective user has presented to the well shooter a written statement signed by a licensed physician that states that the patient's hearing loss has been medically evaluated and the patient may be considered a candidate for a hearing aid. The medical evaluation must have taken place within the preceding six months. Please note: Due to the [place] Statute referenced above, we cannot accept a signature other than that of a licensed physician. FIELD RING ASSEMBLER and PA signatures cannot be accepted. I am in agreement with the above recommendation. There is no medical contraindication for hearing instrumentation. Physician Signature Date Physician Name (Printed)
== END 2023-11-06 12:53 | disposition home or self-care (01) ==
LOC: HO.HAP 12:52
PROVIDERS: Visit Provider Nurse Practitioner Primary Care
DX: Z46.1 Encounter for fitting and adjustment of hearing aid (principal); H90.3 Sensorineural hearing loss, bilateral
CPT/HCPCS: 92591; V5266; V5275

== ENCOUNTER 2023-11-08 13:21 | Outpatient (AMB) | payer MEDICARE, MEDICAID, SELFPAY ==
--- NOTE | 2023-11-08 13:40 | HO.NEPHOV_ITS ---
Vital Signs 11/08/23 13:41 Height 5 ft 6 in Weight 186 lb 2 oz BMI 30.0 BP 110/70 Blood Pressure Location Lt brachial Position Sitting Pulse 80 Pulse Source Pulse Oximeter Pulse Oximetry (%) 98 Oxygen Delivery Method Room Air Intake Visit Reasons: CKD/ 1 MO FU/ # Disconnected Photo Tube Assembler Required: No Accompanied by: Other Relationship Allergies abacavir [ABACAVIR] Allergy (Severe, Verified 11/08/23 13:43) HIVES hydrochlorothiazide [HYDROCHLOROTHIAZIDE] Allergy (Severe, Verified 11/08/23 13:43) HIVES ibuprofen [From MOTRIN] Allergy (Severe, Verified 11/08/23 13:43) HIVES Penicillins [PENICILLINS] Allergy (Severe, Verified 11/08/23 13:43) HIVES tenofovir [From VIREAD] Allergy (Severe, Verified 11/08/23 13:43) HIVES tomato [TOMATO] Allergy (Severe, Verified 11/08/23 13:43) HIVES zidovudine [From RETROVIR] Allergy (Severe, Verified 11/08/23 13:43) HIVES lactose [Lactose] Adverse Reaction (Mild, Verified 11/08/23 13:43) DIARRHEA disoproxail Allergy (Mild, Uncoded 10/29/23 09:20) Unknown HPI Comments Details: I had the privilege of seeing Adrianne accompanied by caregiver from the [place] [facility], in follow up for CKD . She has history of hepatitis C which has been treated. She is on antiretrovirals for HIV. She is compliant with her medications. She is not known to have any proteinuria. He has been taking proton pump inhibitor for a long time. She is also on a famciclovir. Her serum creatinine has gone up lately. She denies any nausea, vomiting, diarrhea, shortness of breath, proximal nocturnal dyspnea, orthopnea, pedal edema, hematuria, nephrolithiasis or urinary symptoms. She does not have any orthostasis. She is not hypertensive. She has history of liver cirrhosis which is compensated now. She does not take any nonsteroidal anti-inflammatories. She has no hematemesis or melena. She has not had any recurrent sinusitis, epistaxis, hemoptysis, hematuria, photosensitivity, skin rashes. Her recent serum creatinine was 1.39. She has been complaining of detrussor issues leading to polyuria. She has a renal cyst by imaging. She has questionable right hydro and has right flank pain intermittently. ON LICENSE OF [facility] Medical History (Updated 11/08/23 @ 14:01 by Ronald Mistry MD) Positive serological reaction for syphilis Hypothyroidism Hx of acute pancreatitis Hx of acute renal failure History of ETOH abuse Hx of herpes genitalis History of diverticulosis Constipation History of intravenous drug abuse Developmental delay, mild COVID-19 vaccine series completed Depression PTSD (post-traumatic stress disorder) Hyperlipidemia Seasonal allergies Hx of hepatitis C HIV (human immunodeficiency virus infection) Nocturia Frequency of micturition Surgical History History of colonoscopy Family History (Updated 10/29/23 @ 09:19 by Jay Muro) Mother Alzheimer disease Breast cancer HTN (hypertension) Paternal Aunt Breast cancer Social History (Updated 10/29/23 @ 09:19 by Jay Muro) Household Members: Other Household Members Other:: [employer] Housing: Senior Care Housing Other:: Residential Are you a primary landcare facilitator to a significant other at home: No Do you presently have visiting nurse or other home services: Yes Alcohol intake: former Patient Tobacco Use Status: Never used Tobacco e-Cigarette/Vaping Use: Never Used Second Hand Smoke Exposure: No service: No Sexual orientation: Decline to Answer Female Reproductive History Menstrual Age of Menarche: 11 Physical Exam Const General: comfortable and no acute distress Orientation/consciousness: patient oriented x3 HEENT Head: Yes normocephalic Mouth: Normal oral and palatal mucosa present Eyes EOM: EOMs intact bilaterally Neck Neck: Yes supple Resp Auscultation: clear to auscultation bilaterally Cardio Jugular venous distension: no JVD Rate: regular rate GI Palpation (GI): Soft to palpation Auscultation: normal bowel sounds General: Yes no CVA tenderness Back/Spine/Pelvis Back: no CVA tenderness Skin General skin exam: no rashes or lesions noted Neuro General: patient oriented x3 and moves all extremities Extrem General: Yes no pedal edema Results Reviewed Nephrology Results: Hgb 13.5 g/dl (12.0-16.0) 10/29/23 WBC 3.9 X10*3/uL (4.8-10.8) L 10/29/23 Plt Count 52 X10*3/uL (160-400) L 10/29/23 Sodium 141 mmol/L (135-145) 10/29/23 Potassium 4.5 mmol/L (3.3-5.1) 10/29/23 Chloride 105 mmol/L (96-108) 10/29/23 Carbon Dioxide 29 mmol/L (22-29) 10/29/23 BUN 24 mg/dL (9-16) H 10/29/23 Creatinine 1.39 mg/dL (0.5-1.4) 10/29/23 Calcium 9.8 mg/dL (8.4-10.2) 10/29/23 Urine Protein Trace mg/dL (Neg-Trace) 08/22/23 Renal US 10/22/23 Assessment & Plan Assessment & Plan (1) Chronic kidney disease, stage 3, mod decreased GFR: Code(s): N18.30 - Chronic kidney disease, stage 3 unspecified Category: Medical Qualifiers: Chronic kidney disease stage 3 subtype: stage 3a (GFR 45-59) Qualified Code(s): N18.31 - Chronic kidney disease, stage 3a (2) Renal cyst: Code(s): N28.1 - Cyst of kidney, acquired Category: Medical (3) Hydronephrosis: Code(s): N13.30 - Unspecified hydronephrosis Category: Medical Qualifiers: Hydronephrosis type: other Qualified Code(s): N13.39 - Other hydronephrosis (4) Polyuria: Code(s): R35.89 - Other polyuria Category: Medical Plan Adrianne has CKD due to unknown etiology. She has history of hepatitis C which has been treated. She has HIV and is on anti-retroviral medications. She is not known to have any significant proteinuria. She is known to have cirrhosis but compensated now. Her serum creatinine is stable at 1.39. Her blood work as well as renal imaging were reviewed. She has been complaining of detrussor issues leading to polyuria. She has a renal cyst by imaging. She has questionable right hydro and has right flank pain intermittently. I referred her to Urology. She does not need a renal biopsy now. I did not make any medication changes today. She is not on any MATTIE inhibitor, ARB or nonsteroidal anti-inflammatories. She is going to be followed up with me for continued care. Further management is pending evolving data Orders: Orders Blood Urea Nitrogen Today N13.30 - Unspecified hydronephrosis, N18.31 - Chronic kidney disease, stage 3a, N28.1 - Cyst of kidney, acquired, R35.89 - Other polyuria Creatinine Today N13.30 - Unspecified hydronephrosis, N18.31 - Chronic kidney disease, stage 3a, N28.1 - Cyst of kidney, acquired, R35.89 - Other polyuria Electrolytes Today N13.30 - Unspecified hydronephrosis, N18.31 - Chronic kidney disease, stage 3a, N28.1 - Cyst of kidney, acquired, R35.89 - Other polyuria Referrals Urology Referral N13.30 - Unspecified hydronephrosis, N28.1 - Cyst of kidney, acquired, R35.89 - Other polyuria Coding Level of Care Code Est Pt Level 4 (17392) Diagnoses Stage 3a chronic kidney disease N18.31 Chronic kidney disease stage 3 subtype: stage 3a (GFR 45-59) Renal cyst N28.1 Other hydronephrosis N13.39 Hydronephrosis type: other Polyuria R35.89
[2023-11-08 13:41] VITALS: BP 110/70; PULSE 80; O2SAT 98
== END 2023-11-08 13:59 | disposition home or self-care (01) ==
PROVIDERS: PCP Nurse Practitioner Primary Care; Visit Provider Internal Medicine Nephrology
DX: N18.31 Chronic kidney disease, stage 3a (principal); N28.1 Cyst of kidney, acquired; N13.39 Other hydronephrosis; R35.89 Other polyuria
CPT/HCPCS: 99214

== ENCOUNTER → 2023-11-08 13:21 | Outpatient (BNVA) | payer MEDICARE, MEDICAID, SELFPAY | PROVIDERS: PCP Nurse Practitioner Primary Care; Visit Provider Internal Medicine Nephrology | DX: N18.31 Chronic kidney disease, stage 3a (principal); N28.1 Cyst of kidney, acquired; N13.39 Other hydronephrosis; R35.89 Other polyuria; Z21 Asymptomatic human immunodeficiency virus [HIV] infection status; Z79.899 Other long term (current) drug therapy | CPT/HCPCS: 99212 ==

== ENCOUNTER 2023-11-14 13:19 | Outpatient (AMB) | payer MEDICARE, MEDICAID, SELFPAY ==
--- NOTE | 2023-11-14 13:29 | A.OFFVIS_ITS ---
Vital Signs 11/14/23 13:30 Height 5 ft 6 in Weight 186 lb BMI 30.0 BP 113/68 Blood Pressure Location Lt brachial Position Sitting Pulse 83 Intake Visit Reasons: 4 month follow up Intake Note: Patient follow up for constipation. Patient cc: lowest abdominal pain with constipation. Denies any other GI issues. Service Advocate Contact Required: No Accompanied by: Employer Allergies abacavir [ABACAVIR] Allergy (Severe, Verified 11/14/23 13:29) HIVES hydrochlorothiazide [HYDROCHLOROTHIAZIDE] Allergy (Severe, Verified 11/14/23 13:29) HIVES ibuprofen [From MOTRIN] Allergy (Severe, Verified 11/14/23 13:29) HIVES Penicillins [PENICILLINS] Allergy (Severe, Verified 11/14/23 13:29) HIVES tenofovir [From VIREAD] Allergy (Severe, Verified 11/14/23 13:29) HIVES tomato [TOMATO] Allergy (Severe, Verified 11/14/23 13:29) HIVES zidovudine [From RETROVIR] Allergy (Severe, Verified 11/14/23 13:29) HIVES lactose [Lactose] Adverse Reaction (Mild, Verified 11/14/23 13:29) DIARRHEA disoproxail Allergy (Mild, Uncoded 10/29/23 09:20) Unknown Medication List - Last Reconciled 11/14/23 by Helena Coon MD acetaminophen 500 mg PO Q6H PRN albuterol sulfate 90 mcg/actuation 2 puffs inhalation Q4H PRN alendronate 70 mg PO QWEEK atorvastatin (Lipitor) 10 mg PO BEDTIME rmfksudfr-sfwrluwd-smokeey ala 50-200-25 mg (Biktarvy) 1 tab PO DAILY calcium carbonate-vitamin D3 600 mg-10 mcg (400 unit) (Calcium 600 + D(3)) 1 tab PO BID cholecalciferol (vitamin D3) (Vitamin D3) 25 mcg PO DAILY cyanocobalamin (vitamin B-12) (Vitamin B-12) 1,000 mcg PO DAILY divalproex 500 mg PO BID famciclovir 1,000 mg PO DAILY folic acid 1 mg PO DAILY hydrocortisone 1% 1 appl topical BID PRN lactase (Lactaid Fast Act) 18,000 units PO QIDWMHS PRN levothyroxine 75 mcg PO QAM omeprazole 20 mg PO QAM quetiapine 200 mg PO TID 30 days sennosides-docusate sodium 8.6-50 mg (Stimulant Laxative Plus) 1 tab PO 3XW 90 days sertraline 100 mg PO DAILY simethicone 80 mg PO BEDTIME simvastatin (Zocor) 20 mg PO BEDTIME sodium chloride 0.65% (Saline Nasal) 1 spray intranasal BID trazodone 100 mg PO BEDTIME 30 days wheat dextrin (Benefiber Sugar Free (dextrin)) 1 packet PO BID HPI HPI 4 month follow up: Details: FU GI CLINIC VISIT FOR THIS 62-YEAR-OLD FEMALE FOR FOLLOW-UP OF LIVER CIRRHOSIS WITH ELEVATED LFTS. ? CHRONIC ILLNESSES:?seasonal allergies, hepatitis C - treated, human immunodeficiency virus (HIV), positive, GERD, lactose intolerance, depression, insomnia, PTSD, herpes, prediabetic, hyperlipidemia ?PAST LABS IN [facility]:?02/16/20 REVIEWED. WBC 4.4, HEMATOCRIT 43.1 PLATELET 85, INR 1.0 ? CR 1.25, TB 0.9 nA 144, total bilirubin 0.6 WITH NORMAL LFTS ? Iron studies showed iron 73, TIBC 354, % saturation 21, ferritin 344 ? Celiac serologies were negative, IgA was 131 ? Liver fibrosis score 0.63, liver fibrosis stage F3, necroinflammatory score 0.46 ?IMAGING STUDIES: 06/28/21 abd us showed: Slightly echogenic liver. No focal liver lesion is seen. Enlarged spleen. No ascites. Normal liver Doppler exam. 08/2020Question mild cirrhotic changes of the liver. No focal liver lesion seen. Splenomegaly. ?ENDOSCOPIC STUDIES:?02/07/21 COLONOSCOPY SHOWED: One medium sized polyp removed. Random biopsies were obtained from right and left colon to check for microscopic colitis Moderate diverticulosis seen in the left colon Plan:? Patient has an appointment on 02/23/21 in the GI Clinic with? Helena Coon M.D. Repeat Colonoscopy interval based on path results - in 3 years if polyp is adenomatous and 10 years if polyp is hyperplastic. BIOPSIES SHOWED: A.? Colon, random right, biopsy:? Colonic mucosa within normal limits; negative for active, chronic or microscopic colitis. B.? Colon, random left, biopsy:? Colonic mucosa within normal limits; negative for active, chronic or microscopic colitis. C.? Rectum, polypectomy:? Clinically polypoid colonic mucosa noted; negative for a hyperplastic or neoplastic process. 09/08/19 EGD WAS NORMAL, NO VARICES WERE SEEN.? SAME-DAY COLONOSCOPY REVEALED MODERATE DIVERTICULOSIS AND NO POLYPS WERE DETECTED.? REPEAT COLONOSCOPY IS ADVISED IN 5 YEARS DUE TO FAIR PREP AND POSITIVE FH OF COLON POLYPS (DAD). ? TODAY'S VISIT Pt is accompanied by a staff member of [facility] Abd US results were reviewed Intermittent constipation. Notes intermittent RLQ pain which resolves after she has a BM. Having a BM daily with straining and hard stools Also has gas. Taking Senna 3 times a week and advised to take it every day. PAST VISIT: Notes some urinary burning with micturation. Has a BM in the morning or afternoon every other day Had COVID in June Loosing and gaining weight. Has loose stools 2-3 times a day without blood or mucous. Notes diarrhea with cheese and milk products and takes Lactaid milk. Feels tired and notes nausea. Complains of pain in the botton of her foot. Intermittent abdominal pain. Had a BM twice this week. Has a BM after she eats ice cream or takes a Latte ? Doing about the same. Denies recurrent rectal bleeding Complains of heartburn once in a while. Occasional loose stools and takes loperamide prn. ? Has GERD and notes dysphagia if she drinks water too fast. Lives in a Residential Home setting in her own apartment in [place]. ? Has had care at [facility] and [facility] in the past. ? 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 ? Also heavy ETOH use from age 18/18 till age 39 yrs - clean and sober since then. ? Renal Failure and pancreatitis in 2008. ? Had vomiting and Jaundice in 2009 - diagnosed with Hep C and ?was treated. ? Constantly tired and fatigued. ? 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 ?PAST VISIT: US results reviewed with the patient Bleeding stopped - notes only once in a while. Notes a sharp pain in her abdomen when she pushes during a BM. Notes hard stools. ?Intentional wt loss of 35 lbs - has been eating healthy - from 210 to 181 lbs. ? I am always constipated. ? Intermittent diarrhea - takes medications when she has diarrhea. ? Denies abdominal pain. ? Continues to have intermittent bleeding _ ? vaginal versus rectal ? Intermittent vaginal bleeding - 2-3 times this week. scheduled for pelvic US on 12/22/20 ? every time she wipes she notices some blood - unsure if she is bleeding from the vagina. ? ? ? Periods stopped when she was 39 yrs ? ? ? Denies having a recent Pelvic examination. ? ? ? Notices lower abdominal cramps - like menstrual cramps. ? ? ? Exercising daily (does Kavin) and weighs 183 lbs (decreased from 210 lbs). ? ? ? Eating a healthy diet. ? I am doing fine and walk around ? I am always tired ? Lost weight from > 200 to 194 ? Has been doing well and denies stomach issues at this time. ? Patient denies change in bowel habits, black stools or rectal bleeding ? Denies dysphagia, heartburn, nausea or vomiting, change in appetite?or wt [facility] Medical History (Updated 11/08/23 @ 14:01 by Ronald Mistry MD) Positive serological reaction for syphilis Hypothyroidism Hx of acute pancreatitis Hx of acute renal failure History of ETOH abuse Hx of herpes genitalis History of diverticulosis Constipation History of intravenous drug abuse Developmental delay, mild COVID-19 vaccine series completed Depression PTSD (post-traumatic stress disorder) Hyperlipidemia Seasonal allergies Hx of hepatitis C HIV (human immunodeficiency virus infection) Nocturia Frequency of micturition Surgical History History of colonoscopy Family History Mother Alzheimer disease Breast cancer HTN (hypertension) Paternal Aunt Breast cancer Social History Household Members: Other Household Members Other:: [employer] Housing: [facility] Housing Other:: Retirement Are you a primary body care manager to a significant other at home: No Do you presently have visiting nurse or other home services: Yes Alcohol intake: former Patient Tobacco Use Status: Never used Tobacco e-Cigarette/Vaping Use: Never Used Second Hand Smoke Exposure: No service: No Sexual orientation: Decline to Answer Female Reproductive History Menstrual Age of Menarche: 11 Review of Systems Const All systems reviewed & are unremarkable except as noted in HPI and below Physical Exam Vital Signs: Last Vital Signs Pulse 83 11/14/23 13:30 BP 113/68 11/14/23 13:30 BMI result Body Mass Index 30.0 Const General: healthy appearing and no acute distress Nutritional Appearance: obese Orientation/consciousness: patient oriented x3 and Other orientation findings (Developmental delay) HEENT Head: Yes normal to inspection Ears: hearing grossly normal bilaterally Eyes Sclerae: sclerae normal Pupils: Equal, round and reactive pupils present Neck Neck: Yes normal visual inspection Chest Chest palpation & inspection: normal inspection of the chest Resp Effort & Inspection: normal respiratory effort Auscultation: clear to auscultation bilaterally Cardio Palpation: normal PMI Rate: regular rate Rhythm: regular rhythm Heart sounds: S1 normal heart sound present, S2 normal heart sound present and no murmurs GI Palpation (GI): Soft to palpation, nontender and No hepatosplenomegaly present Auscultation: normal bowel sounds Rectal Exam - Female: deferred Skin General skin exam: no rashes or lesions noted Neuro General: patient oriented x3, gait normal and moves all extremities Cranial nerves: Yes Equal, round and reactive pupils present Psych Appearance: grossly normal Mental Status: mental status grossly normal Assessment & Plan Assessment & Plan (1) Chronic constipation: Code(s): K59.09 - Other constipation Category: Medical (2) GERD (gastroesophageal reflux disease): Code(s): K21.9 - Gastro-esophageal reflux disease without esophagitis Category: Medical (3) Cirrhosis of liver without ascites: Code(s): K74.60 - Unspecified cirrhosis of liver Category: Medical (4) Colon cancer screening: Comment: 09/24 COLONOSCOPY REVEALED MODERATE DIVERTICULOSIS AND NO POLYPS WERE DETECTED. REPEAT COLONOSCOPY IS ADVISED IN 5 YEARS DUE TO FAIR PREP AND POSITIVE FH OF COLON POLYPS (DAD) - action set in [facility] Code(s): Z12.11 - Encounter for screening for malignant neoplasm of colon Category: Medical Plan 62 YF with seasonal allergies, hepatitis C - treated, human immunodeficiency virus (HIV), positive, GERD, lactose intolerance, depression, insomnia, PTSD, herpes, prediabetic, hyperlipidemia seen for elevated LFTs with cirrhosis. Patient is on treatment for HIV. She has a history of past hepatitis C which has been treated (records pertaining to treatment are not available) since recent hepatitis C viral load has been negative. Past lab evaluation with [facility] was negative 2017. Likely cause of elevated LFT is steatohepatitis related to obesity - LFT are normal since she lost 27 lbs. Iron studies were not suggestive of hemochromatosis and celiac serologies were normal. Liver fibrosis score was 0.63 and liver fibrosis stage was F3 and necroinflammatory score was 0.46 indicating that she may have compensated cirrhosis. Cirrhosis is likely multifactorial - steatohepatitis, past EtOH use and hepatitis C infection. MELD score is 8. Abdominal ultrasound showed mild splenomegaly without hepatic mass and no ascites. Patient admits to intentional weight loss with the normalization of LFTs indicating elevated LFTs were likely due to steatohepatitis. 05/09/23 Pt complains of worsening constipation. She was advised to increase Senna plus to 2 capsules at bedtime for constipation Schedule an [facility] for HCC surveillance. 11/14/23 Having a BM daily with straining and hard stools Taking Senna 3 times a week and advised to take it every day. FU in 4 months Medications: Changed From sennosides-docusate sodium 8.6-50 mg (Stimulant Laxative Plus) 1 tab PO 3XW 90 days 39 tabs 1RF K59.09 - Other constipation To sennosides-docusate sodium 8.6-50 mg (Stimulant Laxative Plus) 1 tab orally daily at bedtime; 90 days 90 tabs 1RF K59.09 - Other constipation Coding Level of Care Code Est Pt Level 4 (02106) Diagnoses Chronic constipation K59.09 GERD (gastroesophageal reflux disease) K21.9 Cirrhosis of liver without ascites K74.60 Colon cancer screening Z12.11 Time Spent (min) 19
[2023-11-14 13:30] VITALS: BP 113/68; PULSE 83
== END 2023-11-14 14:06 | disposition home or self-care (01) ==
PROVIDERS: PCP Student in an Organized Health Care Education/Training Program; Visit Provider Internal Medicine Gastroenterology
DX: K59.09 Other constipation (principal); K21.9 Gastro-esophageal reflux disease without esophagitis; K74.60 Unspecified cirrhosis of liver; Z12.11 Encounter for screening for malignant neoplasm of colon
CPT/HCPCS: 99214

== ENCOUNTER → 2023-11-14 13:19 | Outpatient (BNVA) | payer MEDICARE, MEDICAID, SELFPAY | PROVIDERS: PCP Student in an Organized Health Care Education/Training Program; Visit Provider Internal Medicine Gastroenterology | DX: Z12.11 Encounter for screening for malignant neoplasm of colon (principal); K59.09 Other constipation; K21.9 Gastro-esophageal reflux disease without esophagitis; K74.60 Unspecified cirrhosis of liver | CPT/HCPCS: 99212 ==

== ENCOUNTER 2023-11-20 13:08 | Outpatient (AMB) | payer MEDICARE, MEDICAID, SELFPAY ==
--- NOTE | 2023-11-20 13:11 | MHC.OFFVIS ---
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 Urgent Care Technician Required: No Information Interpreted: non-clinical & clinical Community Relations Advisor: Community Relations Advisor Present (Karine Deni PATEL) Accompanied by: Self / Same As Patient Allergies abacavir [ABACAVIR] Allergy (Severe, Verified 11/20/23 13:17) HIVES hydrochlorothiazide [HYDROCHLOROTHIAZIDE] Allergy (Severe, Verified 11/20/23 13:17) HIVES ibuprofen [From MOTRIN] Allergy (Severe, Verified 11/20/23 13:17) HIVES Penicillins [PENICILLINS] Allergy (Severe, Verified 11/20/23 13:17) HIVES tenofovir [From VIREAD] Allergy (Severe, Verified 11/20/23 13:17) HIVES tomato [TOMATO] Allergy (Severe, Verified 11/20/23 13:17) HIVES zidovudine [From RETROVIR] Allergy (Severe, Verified 11/20/23 13:17) HIVES lactose [Lactose] Adverse Reaction (Mild, Verified 11/20/23 13:17) DIARRHEA disoproxail Allergy (Mild, Uncoded 11/20/23 13:17) Unknown Post menopausal: Yes HPI Comments Details: Presenting for annual exam. No complaints. Last Pap/HPV was negative in 01/25 Last Mammogram was BI-RADS 2 in 11/27 Last Colonoscopy was in 02/25 [facility] Medical History Positive serological reaction for syphilis Hypothyroidism Hx of acute pancreatitis Hx of acute renal failure History of ETOH abuse Hx of herpes genitalis History of diverticulosis Constipation History of intravenous drug abuse Developmental delay, mild COVID-19 vaccine series completed Depression PTSD (post-traumatic stress disorder) Hyperlipidemia Seasonal allergies Hx of hepatitis C HIV (human immunodeficiency virus infection) Nocturia Frequency of micturition Surgical History History of colonoscopy Family History Mother Alzheimer disease Breast cancer HTN (hypertension) Paternal Aunt Breast cancer Social History Household Members: Other Household Members Other:: [employer] Housing: Longterm Housing Other:: Long Term Are you a primary auto care center manager to a significant other at home: No Do you presently have visiting nurse or other home services: Yes Alcohol intake: former Patient Tobacco Use Status: Never used Tobacco e-Cigarette/Vaping Use: Never Used Second Hand Smoke Exposure: No service: No Sexual orientation: Decline to Answer Female Reproductive History Menstrual Age of Menarche: 11 Menopause type: natural Total pregnancies: 7 Full term: 7 Number of Living Children: 7 Date of last pap smear: 01/06/21 Date of Mammogram: 11/27/22 Review of Systems Const All systems reviewed & are unremarkable except as noted in HPI and below Card Reports as per HPI Resp Reports as per HPI GI Reports as per HPI and Reports no additional complaints Reports as per HPI Physical Exam Vital Signs: Last Vital Signs BP 124/70 11/20/23 13:12 BMI result Body Mass Index 29.9 Const General: cooperative, healthy appearing and comfortable Chest Chest palpation & inspection: normal inspection of the chest and normal palpation of entire chest wall Breast/axilla inspection: normal inspection of the breasts and normal inspection of the axillae Breast/axilla palpation: normal palpation of the breasts, normal palpation of the axillae and no axillary lymphadenopathy Resp Effort & Inspection: normal respiratory effort Auscultation: clear to auscultation bilaterally Percussion: percussion normal Cardio Palpation: normal PMI Rate: regular rate Rhythm: regular rhythm Heart sounds: no murmurs and no rubs Peripheral pulses: Peripheral pulses 2+ throughout GI Inspection: Yes normal to inspection Palpation (GI): Soft to palpation, nontender, no guarding, not rigid and No hepatosplenomegaly present Percussion: Yes normal to percussion Auscultation: normal bowel sounds Rectal Exam - Female: deferred General: Yes bladder normal to palpation External Female Exam: No lesion Speculum Exam - Vagina: normal appearance of the vagina, normal palpation, normal vaginal discharge and not erythematous Speculum Exam - Cervix: normal appearance of the cervix and normal palpation Bimanual exam- vagina & uterus: normal bimanual exam, normal palpation, uterine size normal, bladder normal to palpation, consistency normal and normal palpation Bimanual Exam- Adnexa, other: normal adnexae, no masses and no tenderness Assessment & Plan Assessment & Plan (1) Well woman exam: Code(s): Z01.419 - Encounter for gynecological examination (general) (routine) without abnormal findings Category: Medical Plan: Co testing not indicated this year. Counseled the patient about the recommended dietary allowance of 1200 mg of Calcium & 600 IU of vitamin D. Mammogram ordered. The patient was instructed to perform monthly self-breast exams and schedule annual exam in a year. All questions answered and the patient verbalized understanding. Orders: Orders MM tomosynthesis screening BI Today Z12.31 - Encounter for screening mammogram for malignant neoplasm of breast Coding Level of Care Code Est Pt Prev Care 40-64y(58954) Diagnoses Well woman exam Z01.419
[2023-11-20 13:12] VITALS: BP 124/70; BMI 29.9
== END 2023-11-20 14:34 | disposition home or self-care (01) ==
LOC: HO.HWS 13:08
PROVIDERS: PCP Student in an Organized Health Care Education/Training Program; Visit Provider Obstetrics & Gynecology
DX: Z01.419 Encounter for gynecological examination (general) (routine) without abnormal findings (principal)
CPT/HCPCS: G0101

== ENCOUNTER → 2023-11-20 13:08 | Outpatient (BNVA) | payer MEDICARE, MEDICAID, SELFPAY | PROVIDERS: PCP Student in an Organized Health Care Education/Training Program; Visit Provider Obstetrics & Gynecology | DX: Z01.419 Encounter for gynecological examination (general) (routine) without abnormal findings (principal) | CPT/HCPCS: G0101 ==

== ENCOUNTER → 2023-12-04 10:15 | Outpatient (BNV) | payer MEDICARE, MEDICAID, SELFPAY | PROVIDERS: PCP Student in an Organized Health Care Education/Training Program; Visit Provider Radiology Diagnostic Radiology | DX: Z12.31 Encounter for screening mammogram for malignant neoplasm of breast (principal) | CPT/HCPCS: 77063; 77067 ==

== ENCOUNTER 2023-12-04 10:17 | Outpatient (REF) | payer MEDICARE, MEDICAID, SELFPAY ==
--- NOTE | ~2023-12-04 | MM_ITS ---
EXAMINATION: MM SCREENING DIGITAL BREAST TOMOSYNTHESIS, BILATERAL CLINICAL INFORMATION: Screening. Asymptomatic. COMPARISON: Mammography: This study is compared with prior exams dating back to 2019. TECHNIQUE: Digital breast tomosynthesis is performed in both the craniocaudal and mediolateral oblique views along with computer-aided detection (CAD). Synthesized 2D images are generated from the tomosynthesis. FINDINGS: There are scattered areas of fibroglandular density (ACR BI-RADS breast composition Category b). There are no significant masses, abnormal calcifications, or other abnormalities. There is chronic, mild, bilateral, benign nipple retraction. MM/MM tomosynthesis screening BI IMPRESSION: No mammographic evidence of malignancy. ASSESSMENT: BI-RADS BI-RADS 2 - Benign Findings RECOMMENDATION: Routine annual mammography screening. 1 year F/U This examination should not preclude the clinical evaluation of a suspicious palpable abnormality. This patient's information was entered into a reminder system with a target due date for their next mammogram.
== END 2023-12-04 10:18 | disposition home or self-care (01) ==
LOC: HO.MAMMO 10:17
PROVIDERS: PCP Student in an Organized Health Care Education/Training Program; Visit Provider Obstetrics & Gynecology
DX: Z12.31 Encounter for screening mammogram for malignant neoplasm of breast (principal)
CPT/HCPCS: 77063; 77067

== ENCOUNTER 2023-12-06 09:10 | Outpatient (REF) | payer MEDICARE, MEDICAID, SELFPAY ==
--- NOTE | ~2023-12-06 | MM_ITS ---
EXAMINATION: BONE DENSITOMETRY CLINICAL INDICATION: Osteopenia. COMPARISON: Baseline BD dated 04/21/2019. TECHNIQUE: Using a [employer] DXA system (software version: 14.10) manufactured by [employer], dual-energy x-ray absorptiometry was performed of the lumbar spine and left hip. The images are of good technical quality. Summary results are attached. FINDINGS: LEFT FEMUR, NECK: Current: BMD 0.782 g/cm2, Z-score -0.8, T-score -1.8, osteopenia. Baseline: BMD 0.767 g/cm2. LEFT FEMUR, TOTAL: Current: BMD 0.865 g/cm2, Z-score -0.4, T-score -1.1, osteopenia, 4.7% increase from baseline (<5% change is not significant). Baseline: BMD 0.826 g/cm2. AP SPINE L1-L4: Current: BMD 1.232 g/cm2, Z-score 1.4, T-score 0.4, normal, 15.8% increase from baseline (<5% change is not significant). Baseline: BMD 1.064 g/cm2. IDENTIFIED RISK FACTORS: Early menopause, family history (parent hip fracture), renal, history of fracture (adult), secondary osteoporosis. HISTORY OF FRACTURE: Wrist, other. MEDICATIONS: Calcium, vitamin D, bisphosphonate. MM/XR DEXA axial skeleton IMPRESSION: 1. DIAGNOSIS: Osteopenia based on the lowest T-score value of -1.8 in the femoral neck applying World Health Organization criteria. 2. 10-YEAR FRACTURE RISK PREDICTION, FRAX: Not performed in this patient on estrogen or bone building treatments. 3. Treatment Recommendations: NOF guidelines recommend consideration for treatment in postmenopausal women and men age 50 and older presenting with the following: -A hip or vertebral (clinical or morphometric) fracture. -T-score less than or equal to -2.5 at the femoral neck or spine after appropriate evaluation to exclude secondary causes. -Low bone mass at the hip or spine and a 10-year fracture probability by FRAX of greater than or equal to 3% for hip fracture or greater than or equal to 20% for major osteoporotic fracture based on the [place] adapted WHO algorithm. 4. Other Recommendations: All treatment decisions require clinical judgment and consideration of individual patient factors, including patient preferences, comorbidities, previous drug use, risk factors not captured in the FRAX model (e.g. frailty, falls, vitamin D deficiency, increased bone turnover, interval significant decline in bone density) and possible under or overestimation of fracture risk by FRAX. Additional medical evaluation for secondary cause of low bone mineral density may be appropriate. FUTURE SCAN RECOMMENDATION: People with diagnosed cases of osteoporosis or at high risk for fracture should have regular bone mineral density tests. For patients eligible for Medicare, routine testing is allowed once every 2 years. The testing frequency can be increased to one year for patients who have rapidly progressing disease, those who are receiving or discontinuing medical therapy to restore bone mass, or have additional risk factors.
== END 2023-12-06 09:11 | disposition home or self-care (01) ==
LOC: HO.MAMMO 09:10
PROVIDERS: PCP Nurse Practitioner Primary Care; Visit Provider Nurse Practitioner Primary Care
DX: Z13.820 Encounter for screening for osteoporosis (principal); M85.89 Other specified disorders of bone density and structure, multiple sites
CPT/HCPCS: 77080

== ENCOUNTER 2024-01-16 12:44 | Outpatient (REF) | payer MEDICARE, MEDICAID, SELFPAY ==
--- NOTE | 2024-01-16 13:55 | MHC.AU.HA2 ---
Hearing Instrument Fitting- Adult- Binaural Date of Visit: 01/16/24 Hearing Instruments Dispensed: Right Ear: Krish, Model, Color, Serial Number: Leni DONOVAN 1600 ITC-R SN: [id number] Color: [employer] Truck Crane Operator Repair Warranty: 01/31/2027 Truck Crane Operator Loss and Damage Warranty: 01/31/2027 [facility] Service Plan: 01/15/2025 Battery Size: Rechargeable Tactical Air Control Party Manager/Slim Tube: Earmold/Dome/CShell/SlimTip: Type of Wax Guard: HearClear Left Ear: Krish, Model, Color, Serial Number: Leni DONOVAN 1600 ITC-R SN: [id number] Color: [employer] Truck Crane Operator Repair Warranty: 01/31/2027 Truck Crane Operator Loss and Damage Warranty: 01/31/2027 [facility] Service Plan: 01/15/2025 Battery Size: Rechargeable Tactical Air Control Party Manager/Slim Tube: Earmold/Dome/CShell/SlimTip: Type of Wax Guard: HearClear Accessories/Assistive Technology: Starlink plant equipment engineer SN: [id number] Summary of Fitting: Accompanied by senior living staffXiomara. Ran feedback analyzer and real ear measures. Comfortable at real ear settings. As a long-time hearing aid user, Adrianne was familiar with general care (no water activities, take out when sleeping, etc.). However, new hearing aids are rechargeable and different style (previously wore battery-powered BTEs). Discussed care and use of new hearing aids including rechargeability, manually turning on/off, changing wax guards, and cleaning. Practiced insertion/removal. VC wheel inactive at this time. Does not have cellphone - No interest in bluetooth. Recommendations: A hearing instrument follow-up was scheduled. Diagnosis Code(s): Primary Diagnosis: H90.3 Bilateral Sensorineural Hearing Loss Signature: Provider: Augustus Gaitan, [facility]
== END 2024-01-16 12:45 | disposition home or self-care (01) ==
LOC: HO.HAP 12:44
PROVIDERS: Visit Provider Nurse Practitioner Primary Care
DX: Z46.1 Encounter for fitting and adjustment of hearing aid (principal); H90.3 Sensorineural hearing loss, bilateral
CPT/HCPCS: V5011; V5020; V5160; V5259

== ENCOUNTER 2024-01-30 13:44 | Outpatient (REF) | payer MEDICARE, MEDICAID, SELFPAY | END 2024-01-30 13:45 | disposition home or self-care (01) | LOC: HO.HAP 13:44 | PROVIDERS: Visit Provider Nurse Practitioner Primary Care | DX: Z13.89 Encounter for screening for other disorder (principal) ==

== ENCOUNTER 2024-02-27 14:18 | Outpatient (AMB) | payer MEDICARE, MEDICAID, SELFPAY ==
--- NOTE | 2024-02-27 14:43 | A.OFFVIS_ITS ---
Intake Visit Reasons: 1yr follow up/PVR Intake Note: Patient is present for follow up on: [facility] Med: Oxybutynin Antibiotic Allergy: Penicillins Blood Thinner: None Pharmacy: [facility] PVR: 0ml's Linoleum Mechanic Required: No Accompanied by: Unknown Allergies abacavir [ABACAVIR] Allergy (Severe, Verified 02/27/24 15:37) HIVES hydrochlorothiazide [HYDROCHLOROTHIAZIDE] Allergy (Severe, Verified 02/27/24 1 5:37) HIVES ibuprofen [From MOTRIN] Allergy (Severe, Verified 02/27/24 15:37) HIVES Penicillins [PENICILLINS] Allergy (Severe, Verified 02/27/24 15:37) HIVES tenofovir [From VIREAD] Allergy (Severe, Verified 02/27/24 15:37) HIVES tomato [TOMATO] Allergy (Severe, Verified 02/27/24 15:37) HIVES zidovudine [From RETROVIR] Allergy (Severe, Verified 02/27/24 15:37) HIVES lactose [Lactose] Adverse Reaction (Mild, Verified 02/27/24 15:37) DIARRHEA disoproxail Allergy (Mild, Uncoded 02/27/24 15:37) Unknown Medication List - Last Reconciled 02/27/24 by TREVON Manriquez acetaminophen 500 mg PO Q6H PRN albuterol sulfate 90 mcg/actuation 2 puffs inhalation Q4H PRN alendronate 70 mg PO QWEEK [id number] ala 50-200-25 mg (Biktarvy) 1 tab PO DAILY calcium carbonate-vitamin D3 600 mg-10 mcg (400 unit) (Calcium 600 + D(3)) 1 tab PO BID cholecalciferol (vitamin D3) (Vitamin D3) 25 mcg PO DAILY cyanocobalamin (vitamin B-12) (Vitamin B-12) 1,000 mcg PO DAILY divalproex 500 mg PO BID famciclovir 1,000 mg PO DAILY folic acid 1 mg PO DAILY hydrocortisone 1% 1 appl topical BID PRN lactase (Lactaid Fast Act) 18,000 units PO QIDWMHS PRN levothyroxine 75 mcg PO QAM omeprazole 20 mg PO QAM 90 days quetiapine 200 mg PO TID 30 days sennosides-docusate sodium 8.6-50 mg (Stimulant Laxative Plus) 1 tab orally daily at bedtime; 90 days sertraline 100 mg PO DAILY simethicone 80 mg PO BEDTIME simvastatin (Zocor) 20 mg PO BEDTIME sodium chloride 0.65% (Saline Nasal) 1 spray intranasal BID trazodone 100 mg PO BEDTIME 30 days wheat dextrin (Benefiber Sugar Free (dextrin)) 1 packet PO BID HPI Comments Details: Adrianne is a 63-year-old female patient of Dr. Lindsay who was accompanied by her manager social work. She has a past medical history of hypothyroidism, history of ETOH has been sober since 1999, diverticulosis, constipation, developmental delay, depression, PTSD, hyperlipidemia, seasonal allergies, history of hep C has since been treated, HIV, nocturia, and urinary frequency. She presents to the office today for follow-up of her lower urinary tract symptoms. In discussion with the patient today she reports having followed up with Gastroenterology for issues with constipation she has been experiencing at which time her oxybutynin was discontinued. She does continue to report episodes of urinary frequency however reports urinating 6 times per day. We discussed healthy bladder habits. She otherwise denies incontinence, hematuria, dysuria, foul smelling urine, changes to urinary stream, flank pain, fever, and or chills. Unable to obtain urine for urinalysis however PVR 0 mL. Discussed obtaining bladder diary as well as retroperitoneal ultrasound for further assessment evaluation. She otherwise offers no other issues or concerns at this time. [facility] Medical History Positive serological reaction for syphilis Hypothyroidism Hx of acute pancreatitis Hx of acute renal failure History of ETOH abuse Hx of herpes genitalis History of diverticulosis Constipation History of intravenous drug abuse Developmental delay, mild COVID-19 vaccine series completed Depression PTSD (post-traumatic stress disorder) Hyperlipidemia Seasonal allergies Hx of hepatitis C HIV (human immunodeficiency virus infection) Nocturia Frequency of micturition Surgical History History of colonoscopy Family History Mother Alzheimer disease Breast cancer HTN (hypertension) Paternal Aunt Breast cancer Social History Household Members: Other Household Members Other:: [employer] Housing: Prison Housing Other:: Penitentiary Are you a primary care attendant to a significant other at home: No Do you presently have visiting nurse or other home services: Yes Alcohol intake: former Patient Tobacco Use Status: Never used Tobacco e-Cigarette/Vaping Use: Never Used Second Hand Smoke Exposure: No service: No Sexual orientation: Decline to Answer Female Reproductive History Menstrual Age of Menarche: 11 Review of Systems Const Reports no additional complaints Eyes Reports no additional complaints ENT Reports no additional complaints Card Reports as per HPI Resp Reports no additional complaints GI Reports as per HPI Reports as per [facility] Musc Reports as per HPI Neuro Reports as per HPI Psych Reports as per HPI Endo Reports as per HPI Arian/Lymph Reports as per HPI Aller/Immun Reports no additional complaints Physical Exam Const General: cooperative, comfortable, no acute distress, well developed, alert and awake Orientation/consciousness: patient oriented x3 Limitations: no limitations HEENT Head: Yes normal to inspection, Yes normocephalic and Yes atraumatic Ears: hearing grossly normal bilaterally Eyes General: appearance normal, both eyes and all related structures Neck Neck: Yes normal visual inspection and Yes trachea midline Chest Chest palpation & inspection: normal inspection of the chest Resp Effort & Inspection: normal respiratory effort and able to speak in complete sentences Cardio Rate: regular rate GI Inspection: Yes normal to inspection General: Yes no CVA tenderness Back/Spine/Pelvis Back: no CVA tenderness Skin General skin exam: no rashes or lesions noted Neuro General: patient oriented x3 Extrem General: Yes normal to inspection Psych Appearance: grossly normal and well kempt Mental Status: mental status grossly normal Speech and movement: Normal speech and movement present and Clear speech present Affect: normal affect Attitude: cooperative Thought process: Normal thought process present Thought content: Normal thought content present Insight: Fair insight present (Psych) Judgement: Fair judgement present (Psych) Assessment & Plan Assessment & Plan (1) Frequency of micturition: Code(s): R35.0 - Frequency of micturition Category: Medical (2) Nocturia: Code(s): R35.1 - Nocturia Category: Medical Plan Unable to obtain urine for urinalysis however PVR 0 mL. Discussed obtaining bladder diary for further assess evaluation given patient with vague symptoms. Will obtain retroperitoneal ultrasound for further assessment evaluation. Discussed possible near future treatment options however will await bladder diary results for further assessment evaluation. Discussed bladder triggers/irritants. Follow-up in 1-3 months with imaging and bladder diary; or sooner with any issues, concerns, and or questions. Orders: Orders US retroperitoneal comp Today R35.0 - Frequency of micturition, R35.1 - Nocturia AMB Post Void Residual by ultrasound Today N32.81 - Overactive bladder Patient Instructions: The patient had an opportunity to ask questions regarding the treatment plan. All questions were answered. Physical exam, labs, and imaging were discussed and reviewed in detail. As well as risks, benefits, and discussion of treatment choices. No major barriers to understanding were identified. The patient expressed understanding and agreement with the above treatment plan. The patient was made aware they should contact our office by phone for worsening of their current condition, the appearance of new symptoms, or with any questions or concerns. Compliance is encouraged with any medications and follow up testing that is ordered. It is a privilege to be allowed the opportunity to participate in? your urological care.? Again, if you have any questions or concerns If you have any questions or concerns please do not hesitate to contact me. The office is [phone]. This note is constructed using voice recognition software. While every effort has been made to ensure accuracy senior ssis developer errors may have been included. Yours sincerely, TREVON Manriquez Coding Level of Care Code Est Pt Level 3 (10783) Complex EM visit Add On G2211 Diagnoses Frequency of micturition R35.0 Nocturia R35.1
== END 2024-02-27 15:32 | disposition home or self-care (01) ==
PROVIDERS: PCP Nurse Practitioner Primary Care; Visit Provider Nurse Practitioner Family
DX: R35.0 Frequency of micturition (principal); R35.1 Nocturia
CPT/HCPCS: 99213; G2211

== ENCOUNTER → 2024-02-27 14:18 | Outpatient (BNVA) | payer MEDICARE, MEDICAID, SELFPAY | PROVIDERS: PCP Nurse Practitioner Primary Care; Visit Provider Nurse Practitioner Family | DX: R35.0 Frequency of micturition (principal); R35.1 Nocturia | CPT/HCPCS: 99212 ==

== ENCOUNTER 2024-03-06 10:35 | Outpatient (REF) | payer MEDICARE, MEDICAID, SELFPAY ==
[2024-03-06 12:00] LABS: Anion Gap 10 (12-20); Blood Urea Nitrogen 24 mg/dL (9-16); Carbon Dioxide 28 mmol/L (22-29); Chloride 105 mmol/L (96-108); Estimated Glomerular Filt Rate 40; Potassium 4.5 mmol/L (3.3-5.1); Sodium 138 mmol/L (135-145)
== END 2024-03-06 10:36 | disposition home or self-care (01) ==
LOC: HO.LAB 10:35
PROVIDERS: PCP Nurse Practitioner Primary Care; Visit Provider Internal Medicine Nephrology
DX: E03.9 Hypothyroidism, unspecified (principal); R35.89 Other polyuria; N28.1 Cyst of kidney, acquired; N18.31 Chronic kidney disease, stage 3a
CPT/HCPCS: 36415; 80051; 82565; 84443; 84520

== ENCOUNTER 2024-03-11 13:14 | Outpatient (AMB) | payer MEDICARE, MEDICAID, SELFPAY ==
--- NOTE | 2024-03-11 13:31 | HO.NEPHOV ---
Vital Signs 03/11/24 13:32 Height 5 ft 6 in Weight 190 lb 8 oz BMI 30.7 BP 100/60 Blood Pressure Location Lt brachial Position Sitting Intake Visit Reasons: CKD/ 4 MO FU- Conf w/ [place] Settlement Clerk Required: No Accompanied by: Significant Other Allergies abacavir [ABACAVIR] Allergy (Severe, Verified 03/11/24 13:34) HIVES hydrochlorothiazide [HYDROCHLOROTHIAZIDE] Allergy (Severe, Verified 03/11/24 13:34) HIVES ibuprofen [From MOTRIN] Allergy (Severe, Verified 03/11/24 13:34) HIVES Penicillins [PENICILLINS] Allergy (Severe, Verified 03/11/24 13:34) HIVES tenofovir [From VIREAD] Allergy (Severe, Verified 03/11/24 13:34) HIVES tomato [TOMATO] Allergy (Severe, Verified 03/11/24 13:34) HIVES zidovudine [From RETROVIR] Allergy (Severe, Verified 03/11/24 13:34) HIVES lactose [Lactose] Adverse Reaction (Mild, Verified 03/11/24 13:34) DIARRHEA disoproxail Allergy (Mild, Uncoded 02/27/24 15:37) Unknown HPI Comments Details: I had the privilege of seeing Adrianne accompanied by caregiver from the [facility], in follow up for CKD . She has history of hepatitis C which has been treated. She is on antiretrovirals for HIV. She is compliant with her medications. She is not known to have any proteinuria. She denies any nausea, vomiting, diarrhea, shortness of breath, proximal nocturnal dyspnea, orthopnea, pedal edema, hematuria, nephrolithiasis or urinary symptoms. She does not have any orthostasis. She is not hypertensive. She has history of liver cirrhosis which is compensated now. She does not take any nonsteroidal anti-inflammatories. She has no hematemesis or melena. She has not had any recurrent sinusitis, epistaxis, hemoptysis, hematuria, photosensitivity, skin rashes. She has a renal cyst by imaging. She has questionable right hydro by imaging. She feels well. [facility] Medical History Positive serological reaction for syphilis Hypothyroidism Hx of acute pancreatitis Hx of acute renal failure History of ETOH abuse Hx of herpes genitalis History of diverticulosis Constipation History of intravenous drug abuse Developmental delay, mild COVID-19 vaccine series completed Depression PTSD (post-traumatic stress disorder) Hyperlipidemia Seasonal allergies Hx of hepatitis C HIV (human immunodeficiency virus infection) Nocturia Frequency of micturition Surgical History History of colonoscopy Family History Mother Alzheimer disease Breast cancer HTN (hypertension) Paternal Aunt Breast cancer Social History Household Members: Other Household Members Other:: [facility] [employer] Housing: Prison Housing Other:: Half-Way Are you a primary home care physical therapist to a significant other at home: No Do you presently have visiting nurse or other home services: Yes Alcohol intake: former Patient Tobacco Use Status: Never used Tobacco e-Cigarette/Vaping Use: Never Used Second Hand Smoke Exposure: No service: No Sexual orientation: Decline to Answer Female Reproductive History Menstrual Age of Menarche: 11 Review of Systems Const All systems reviewed & are unremarkable except as noted in HPI and below Physical Exam Vital Signs: Last Vital Signs BP 100/60 03/11/24 13:32 BMI result Body Mass Index 30.7 Const General: comfortable and no acute distress Orientation/consciousness: patient oriented x3 HEENT Head: Yes normocephalic Mouth: Normal oral and palatal mucosa present Eyes EOM: EOMs intact bilaterally Neck Neck: Yes supple Resp Auscultation: clear to auscultation bilaterally Cardio Jugular venous distension: no JVD Rate: regular rate GI Palpation (GI): Soft to palpation Auscultation: normal bowel sounds General: Yes no CVA tenderness Back/Spine/Pelvis Back: no CVA tenderness Skin General skin exam: no rashes or lesions noted Neuro General: patient oriented x3 and moves all extremities Results Reviewed Nephrology Results: Hgb 13.0 g/dl (12.0-16.0) 02/11/24 WBC 5.4 X10*3/uL (4.8-10.8) 02/11/24 Plt Count 46 X10*3/uL (160-400) L 02/11/24 Sodium 138 mmol/L (135-145) 03/06/24 Potassium 4.5 mmol/L (3.3-5.1) 03/06/24 Chloride 105 mmol/L (96-108) 03/06/24 Carbon Dioxide 28 mmol/L (22-29) 03/06/24 BUN 24 mg/dL (9-16) H 03/06/24 Creatinine 1.35 mg/dL (0.5-1.4) 03/06/24 Calcium 9.3 mg/dL (8.4-10.2) 02/11/24 Assessment & Plan Assessment & Plan (1) Chronic kidney disease, stage 3, mod decreased GFR: Code(s): N18.30 - Chronic kidney disease, stage 3 unspecified Category: Medical Qualifiers: Chronic kidney disease stage 3 subtype: stage 3a (GFR 45-59) Qualified Code(s): N18.31 - Chronic kidney disease, stage 3a Plan Adrianne has CKD due to unknown etiology. She has history of hepatitis C which has been treated. She has HIV and is on anti-retroviral medications. She is not known to have any significant proteinuria. She is known to have cirrhosis but compensated now. Her serum creatinine is stable at 1.35. She has a renal cyst by imaging. She has questionable right hydro and follows up with Urology. She does not need a renal biopsy now. I did not make any medication changes today. She is not on any MATTIE inhibitor, ARB or nonsteroidal anti-inflammatories. She is going to be followed up with me for continued care. Further management is pending evolving data Orders: Orders Creatinine Today N18.31 - Chronic kidney disease, stage 3a Blood Urea Nitrogen Today N18.31 - Chronic kidney disease, stage 3a Electrolytes Today N18.31 - Chronic kidney disease, stage 3a Coding Level of Care Code Est Pt Level 4 (92597) Diagnoses Stage 3a chronic kidney disease N18.31 Chronic kidney disease stage 3 subtype: stage 3a (GFR 45-59)
[2024-03-11 13:32] VITALS: BP 100/60; BMI 30.7
== END 2024-03-11 13:51 | disposition home or self-care (01) ==
PROVIDERS: PCP Nurse Practitioner Primary Care; Visit Provider Internal Medicine Nephrology
DX: N18.31 Chronic kidney disease, stage 3a (principal)
CPT/HCPCS: 99214

== ENCOUNTER → 2024-03-11 13:14 | Outpatient (BNVA) | payer MEDICARE, MEDICAID, SELFPAY | PROVIDERS: PCP Nurse Practitioner Primary Care; Visit Provider Internal Medicine Nephrology | DX: N18.31 Chronic kidney disease, stage 3a (principal) | CPT/HCPCS: 99212 ==

== ENCOUNTER 2024-03-26 12:38 | Outpatient (AMB) | payer MEDICARE, MEDICAID, SELFPAY ==
--- NOTE | 2024-03-26 12:47 | MHC.OFFVIS ---
Vital Signs 03/26/24 12:48 Height 5 ft 6 in Weight 182 lb BMI 29.4 BP 116/75 Blood Pressure Location Lt brachial Position Sitting Pulse 94 Intake Visit Reasons: 4 month follow up Intake Note: Patient follow up for chronic constipation Patient cc: abdominal pain with gasses, diarrhea and constipation. Denies any other GI issues. 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 Accompanied by: Family/Other Allergies abacavir [ABACAVIR] Allergy (Severe, Verified 03/26/24 12:46) HIVES hydrochlorothiazide [HYDROCHLOROTHIAZIDE] Allergy (Severe, Verified 03/26/24 12:46) HIVES ibuprofen [From MOTRIN] Allergy (Severe, Verified 03/26/24 12:46) HIVES Penicillins [PENICILLINS] Allergy (Severe, Verified 03/26/24 12:46) HIVES tenofovir [From VIREAD] Allergy (Severe, Verified 03/26/24 12:46) HIVES tomato [TOMATO] Allergy (Severe, Verified 03/26/24 12:46) HIVES zidovudine [From RETROVIR] Allergy (Severe, Verified 03/26/24 12:46) HIVES lactose [Lactose] Adverse Reaction (Mild, Verified 03/26/24 12:46) DIARRHEA disoproxail Allergy (Mild, Uncoded 02/27/24 15:37) Unknown Medication List - Last Reconciled 03/26/24 by Helena Coon MD acetaminophen 500 mg PO Q6H PRN albuterol sulfate 90 mcg/actuation 2 puffs inhalation Q4H PRN alendronate 70 mg PO QWEEK atorvastatin 10 mg PO DAILY nssfymvgc-brknfpnb-rizclfh ala 50-200-25 mg (Biktarvy) 1 tab PO DAILY calcium carbonate-vitamin D3 600 mg-10 mcg (400 unit) (Calcium 600 + D(3)) 1 tab PO BID cholecalciferol (vitamin D3) (Vitamin D3) 25 mcg PO DAILY cyanocobalamin (vitamin B-12) (Vitamin B-12) 1,000 mcg PO DAILY divalproex 500 mg PO DAILY famciclovir 500 mg PO BID folic acid 1 mg PO DAILY hydrocortisone 1% 1 appl topical BID PRN lactase (Lactaid Fast Act) 18,000 units PO QIDWMHS PRN levothyroxine 75 mcg PO QAM omeprazole 20 mg PO QAM 90 days oxybutynin chloride ER 5 mg PO DAILY quetiapine 200 mg PO TID 30 days sennosides-docusate sodium 8.6-50 mg (Stimulant Laxative Plus) 1 tab orally daily at bedtime; 90 days sertraline 100 mg PO DAILY simethicone 80 mg PO BEDTIME sodium chloride 0.65% (Saline Nasal) 1 spray intranasal BID trazodone 100 mg PO BEDTIME 30 days trazodone 100 mg PO BEDTIME wheat dextrin (Benefiber Sugar Free (dextrin)) 1 packet PO BID HPI HPI 4 month follow up: Details: FU GI CLINIC VISIT FOR THIS 62-YEAR-OLD FEMALE FOR FOLLOW-UP OF LIVER CIRRHOSIS WITH ELEVATED LFTS. TODAY'S VISIT Patient cc: abdominal pain with gasses, diarrhea and constipation. Pt is accompanied by a staff member of [facility] Noted periumblical pain yesterday and radiating around to the back Pain comes and goes and notes increased pain when having a BM and resolves after she has a BM. Has to drink a lot of water. Had diarrhea for 1 day last week Has a BM every other day with hard stool associated with straining Abd US results were reviewed Intermittent constipation. Notes intermittent RLQ pain which resolves after she has a BM. Having a BM daily with straining and hard stools Also has gas. Taking Senna 3 times a week and advised to take it every day. PAST VISIT: Notes some urinary burning with micturation. Has a BM in the morning or afternoon every other day Had COVID in June Loosing and gaining weight. Has loose stools 2-3 times a day without blood or mucous. Notes diarrhea with cheese and milk products and takes Lactaid milk. Feels tired and notes nausea. Complains of pain in the botton of her foot. Intermittent abdominal pain. Had a BM twice this week. Has a BM after she eats ice cream or takes a Latte ? Doing about the same. Denies recurrent rectal bleeding Complains of heartburn once in a while. Occasional loose stools and takes loperamide prn. ? Has GERD and notes dysphagia if she drinks water too fast. Lives in a Residential Home setting in her own apartment in [place]. ? Has had care at [facility] and [facility] in the past. ? 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 ? Also heavy ETOH use from age 18/18 till age 39 yrs - clean and sober since then. ? Renal Failure and pancreatitis in 2008. ? Had vomiting and Jaundice in 2009 - diagnosed with Hep C and ?was treated. ? Constantly tired and fatigued. ? 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 ? CHRONIC ILLNESSES:?seasonal allergies, hepatitis C - treated, human immunodeficiency virus (HIV), positive, GERD, lactose intolerance, depression, insomnia, PTSD, herpes, prediabetic, hyperlipidemia ?[facility]. WBC 4.4, HEMATOCRIT 43.1 PLATELET 85, INR 1.0 ? CR 1.25, TB 0.9 nA 144, total bilirubin 0.6 WITH NORMAL LFTS ? Iron studies showed iron 73, TIBC 354, % saturation 21, ferritin 344 ? Celiac serologies were negative, IgA was 131 ? Liver fibrosis score 0.63, liver fibrosis stage F3, necroinflammatory score 0.46 ?IMAGING STUDIES: 06/28/21 abd us showed: Slightly echogenic liver. No focal liver lesion is seen. Enlarged spleen. No ascites. Normal liver Doppler exam. 08/2020Question mild cirrhotic changes of the liver. No focal liver lesion seen. Splenomegaly. ?ENDOSCOPIC STUDIES:?02/07/21 COLONOSCOPY SHOWED: One medium sized polyp removed. Random biopsies were obtained from right and left colon to check for microscopic colitis Moderate diverticulosis seen in the left colon Plan:? Patient has an appointment on 02/23/21 in the GI Clinic with? Helena Coon M.D. Repeat Colonoscopy interval based on path results - in 3 years if polyp is adenomatous and 10 years if polyp is hyperplastic. BIOPSIES SHOWED: A.? Colon, random right, biopsy:? Colonic mucosa within normal limits; negative for active, chronic or microscopic colitis. B.? Colon, random left, biopsy:? Colonic mucosa within normal limits; negative for active, chronic or microscopic colitis. C.? Rectum, polypectomy:? Clinically polypoid colonic mucosa noted; negative for a hyperplastic or neoplastic process. 09/08/19 EGD WAS NORMAL, NO VARICES WERE SEEN.? SAME-DAY COLONOSCOPY REVEALED MODERATE DIVERTICULOSIS AND NO POLYPS WERE DETECTED.? REPEAT COLONOSCOPY IS ADVISED IN 5 YEARS DUE TO FAIR PREP AND POSITIVE FH OF COLON POLYPS (DAD). ?PAST VISIT: US results reviewed with the patient Bleeding stopped - notes only once in a while. Notes a sharp pain in her abdomen when she pushes during a BM. Notes hard stools. ?Intentional wt loss of 35 lbs - has been eating healthy - from 210 to 181 lbs. ? I am always constipated. ? Intermittent diarrhea - takes medications when she has diarrhea. ? Denies abdominal pain. ? Continues to have intermittent bleeding _ ? vaginal versus rectal ? Intermittent vaginal bleeding - 2-3 times this week. scheduled for pelvic US on 12/22/20 ? every time she wipes she notices some blood - unsure if she is bleeding from the vagina. ? ? ? Periods stopped when she was 39 yrs ? ? ? Denies having a recent Pelvic examination. ? ? ? Notices lower abdominal cramps - like menstrual cramps. ? ? ? Exercising daily (does Kavin) and weighs 183 lbs (decreased from 210 lbs). ? ? ? Eating a healthy diet. ? I am doing fine and walk around ? I am always tired ? Lost weight from > 200 to 194 ? Has been doing well and denies stomach issues at this time. ? Patient denies change in bowel habits, black stools or rectal bleeding ? Denies dysphagia, heartburn, nausea or vomiting, change in appetite?or wt PFSH Medical History Positive serological reaction for syphilis Hypothyroidism Hx of acute pancreatitis Hx of acute renal failure History of ETOH abuse Hx of herpes genitalis History of diverticulosis Constipation History of intravenous drug abuse Developmental delay, mild COVID-19 vaccine series completed Depression PTSD (post-traumatic stress disorder) Hyperlipidemia Seasonal allergies Hx of hepatitis C HIV (human immunodeficiency virus infection) Nocturia Frequency of micturition Surgical History History of colonoscopy Family History Mother Alzheimer disease Breast cancer HTN (hypertension) Paternal Aunt Breast cancer Social History Household Members: Other Household Members Other:: [facility] [employer] Housing: Retirement Housing Other:: Skilled Nursing Are you a primary personal care attendant to a significant other at home: No Do you presently have visiting nurse or other home services: Yes Alcohol intake: former Patient Tobacco Use Status: Never used Tobacco e-Cigarette/Vaping Use: Never Used Second Hand Smoke Exposure: No service: No Sexual orientation: Decline to Answer Female Reproductive History Menstrual Age of Menarche: 11 Review of Systems Const All systems reviewed & are unremarkable except as noted in HPI and below Physical Exam Vital Signs: Last Vital Signs Pulse 94 03/26/24 12:48 BP 116/75 03/26/24 12:48 BMI result Body Mass Index 29.4 Const General: healthy appearing and no acute distress Nutritional Appearance: overweight Orientation/consciousness: patient oriented x3 Limitations: other limitations (Developmental delay) HEENT Head: Yes normal to inspection Ears: hearing grossly normal bilaterally Mouth: Normal oral and palatal mucosa present Eyes Sclerae: sclerae normal Pupils: Equal, round and reactive pupils present Neck Neck: Yes normal visual inspection Chest Chest palpation & inspection: normal inspection of the chest Resp Effort & Inspection: normal respiratory effort Auscultation: clear to auscultation bilaterally Cardio Palpation: normal PMI Rate: regular rate Rhythm: regular rhythm Heart sounds: S1 normal heart sound present, S2 normal heart sound present and no murmurs GI Palpation (GI): Soft to palpation, nontender and No hepatosplenomegaly present Auscultation: normal bowel sounds Rectal Exam - Female: deferred Skin General skin exam: no rashes or lesions noted Neuro General: patient oriented x3, gait normal and moves all extremities Cranial nerves: Yes Equal, round and reactive pupils present Psych Appearance: grossly normal Mental Status: mental status grossly normal Assessment & Plan Assessment & Plan (1) Chronic constipation: Code(s): K59.09 - Other constipation Category: Medical (2) Thrombocytopenia: Code(s): D69.6 - Thrombocytopenia, unspecified Category: Medical (3) GERD (gastroesophageal reflux disease): Code(s): K21.9 - Gastro-esophageal reflux disease without esophagitis Category: Medical (4) Cirrhosis of liver without ascites: Code(s): K74.60 - Unspecified cirrhosis of liver Category: Medical (5) Colon cancer screening: Comment: 09/24 COLONOSCOPY REVEALED MODERATE DIVERTICULOSIS AND NO POLYPS WERE DETECTED. REPEAT COLONOSCOPY IS ADVISED IN 5 YEARS DUE TO FAIR PREP AND POSITIVE FH OF COLON POLYPS (DAD) - action set in [facility] Code(s): Z12.11 - Encounter for screening for malignant neoplasm of colon Category: Medical Plan 62 YF with seasonal allergies, hepatitis C - treated, human immunodeficiency virus (HIV), positive, GERD, lactose intolerance, depression, insomnia, PTSD, herpes, prediabetic, hyperlipidemia seen for elevated LFTs with cirrhosis. Patient is on treatment for HIV. She has a history of past hepatitis C which has been treated (records pertaining to treatment are not available) since recent hepatitis C viral load has been negative. Past lab evaluation with [facility] was negative 2017. Likely cause of elevated LFT is steatohepatitis related to obesity - LFT are normal since she lost 27 lbs. Iron studies were not suggestive of hemochromatosis and celiac serologies were normal. Liver fibrosis score was 0.63 and liver fibrosis stage was F3 and necroinflammatory score was 0.46 indicating that she may have compensated cirrhosis. Cirrhosis is likely multifactorial - steatohepatitis, past EtOH use and hepatitis C infection. MELD score is 8. Abdominal ultrasound showed mild splenomegaly without hepatic mass and no ascites. Patient admits to intentional weight loss with the normalization of LFTs indicating elevated LFTs were likely due to steatohepatitis. 05/09/23 Pt complains of worsening constipation. She was advised to increase Senna plus to 2 capsules at bedtime for constipation Schedule an [facility] US for HCC surveillance. 11/14/23 Having a BM daily with straining and hard stools Taking Senna 3 times a week and advised to take it every day. 03/26/24 Noted periumblical pain yesterday and radiating around to the back Pain comes and goes and notes increased pain when having a BM and resolves after she has a BM. Has to drink a lot of water. Had diarrhea for 1 day last week Has a BM every other day with hard stool associated with straining Advised to increase senna to twice a day for constipation FU in 4 weeks Coding Level of Care Code Est Pt Level 3 (29662) Diagnoses Chronic constipation K59.09 Thrombocytopenia D69.6 GERD (gastroesophageal reflux disease) K21.9 Cirrhosis of liver without ascites K74.60 Colon cancer screening Z12.11 Time Spent (min) 18
[2024-03-26 12:48] VITALS: BP 116/75; PULSE 94; BMI 29.4
== END 2024-03-26 13:46 | disposition home or self-care (01) ==
PROVIDERS: PCP Student in an Organized Health Care Education/Training Program; Visit Provider Internal Medicine Gastroenterology
DX: K59.09 Other constipation (principal); D69.6 Thrombocytopenia, unspecified; K21.9 Gastro-esophageal reflux disease without esophagitis; K74.60 Unspecified cirrhosis of liver; Z12.11 Encounter for screening for malignant neoplasm of colon
CPT/HCPCS: 99213

== ENCOUNTER → 2024-03-26 12:38 | Outpatient (BNVA) | payer MEDICARE, SELFPAY | PROVIDERS: PCP Student in an Organized Health Care Education/Training Program; Visit Provider Internal Medicine Gastroenterology | DX: Z12.11 Encounter for screening for malignant neoplasm of colon (principal); K59.09 Other constipation; K21.9 Gastro-esophageal reflux disease without esophagitis; K74.60 Unspecified cirrhosis of liver; D69.6 Thrombocytopenia, unspecified | CPT/HCPCS: 99212 ==

== ENCOUNTER 2024-03-27 11:38 | Outpatient (REF) | payer MEDICARE, MEDICAID, SELFPAY ==
[2024-03-27 16:37] LABS: MANUAL DIFF FLAG NO
[2024-03-27 16:46] LABS: Basophils Percent Auto 0.3 % (0-2); Eosinophils Percent Auto 0.5 % (0-4); Hematocrit 37.9 % (37.0-47.0); Hemoglobin 13.3 g/dl (12.0-16.0); Imm Gran Abs Auto 0.05 X10*3/uL (0.00-0.03); Imm Gran Pct Auto 1.3 % (0.0-0.4); Lymphocytes Absolute Auto 1.4 X10*3/uL (1.2-4.9); Lymphocytes Percent Auto 37.8 % (20-40); Mean Corpuscular HGB Conc 35.1 g/dl (31.0-35.0); Mean Corpuscular Hemoglobin 41.8 pg (27.0-33.0); Mean Platelet Volume 9.5 fL (9.4-12.3); Monocytes Absolute Auto 0.3 X10*3/uL (0.1-1.2); Monocytes Percent Auto 7.4 % (2-11); Neutrophils Percent Auto 52.7 % (45-73); Red Blood Count 3.18 X10*6/uL (4.20-5.50); Red Cell Distribution Width 12.1 % (11.0-16.0); White Blood Count 3.8 X10*3/uL (4.8-10.8)
[2024-03-27 16:51] LABS: Mean Corpuscular Volume 119.2 fL (80.0-98.0); Platelet Count 59 X10*3/uL (160-400)
[2024-03-27 17:01] LABS: Alanine Aminotransferase 24 U/L (0-31); Albumin Level 4.1 g/dL (3.5-5.0); Alkaline Phosphatase 35 U/L (39-117); Anion Gap 14 (12-20); Aspartate Amino Transferase 38 U/L (5-31); Bilirubin Total 0.5 mg/dL (0.0-1.0); Blood Urea Nitrogen 18 mg/dL (9-16); Calcium 9.3 mg/dL (8.4-10.2); Carbon Dioxide 23 mmol/L (22-29); Chloride 105 mmol/L (96-108); Cholesterol 126 mg/dL (<200); Estimated Glomerular Filt Rate 35; Glucose Random 144 mg/dL (60-115); HDL Cholesterol 29 mg/dL (>40); Potassium 4.3 mmol/L (3.3-5.1); Sodium 138 mmol/L (135-145); Total Protein 7.1 g/dL (6.5-8.0); Triglycerides 404 mg/dL (<150)
[2024-03-27 17:27] LABS: Reflex LDLD? Yes
[2024-03-28 18:58] LABS: LDL Cholesterol Direct 67 mg/dL (<100)
[2024-03-30 18:53] LABS: HIV RNA PCR Qn Copies 81 Copies/mL; HIV RNA PCR Qn Log Copies 1.91 Log cps/mL
[2024-04-01 22:13] LABS: Absolute CD3 Count 1154 cells/uL (840-3060); Absolute CD4 Count 586 cells/uL (490-1740); Absolute CD8 Count 590 cells/uL (180-1170); Absolute Lymphocytes 1333 cells/uL (850-3900); CD4 CD8 Ratio 0.99 (0.86-5.00); Percent CD3 Cells 87 % (57-85); Percent CD4 Cells 44 % (30-61); Percent CD8 Cells 44 % (12-42)
== END 2024-03-27 11:39 | disposition home or self-care (01) ==
LOC: HO.HHCL 11:38
PROVIDERS: Referring Provider Student in an Organized Health Care Education/Training Program; Visit Provider Internal Medicine Nephrology
DX: B20 Human immunodeficiency virus [HIV] disease (principal); E78.5 Hyperlipidemia, unspecified
CPT/HCPCS: 36415; 80053; 80061; 83721; 85025; 86359; 86360; 87536; 87900

== ENCOUNTER 2024-04-10 09:39 | Outpatient (REF) | payer MEDICARE, MEDICAID, SELFPAY ==
--- NOTE | ~2024-04-10 | US_ITS ---
EXAMINATION: US RETROPERITONEAL LIMITED (RENAL ONLY) CLINICAL INFORMATION: Frequency of micturition. COMPARISON: Renal ultrasound 10/22/2023. Ultrasound abdomen complete 09/04/2023. CT abdomen and pelvis 03/29/2015. TECHNIQUE: Real-time imaging of the kidneys. FINDINGS: RIGHT KIDNEY: 11.1 x 4.5 x 5.5 cm (SAG x AP x TRV). The kidney is normal in size, contour, and echogenicity. Renal cortical thickness is normal. No focal parenchymal lesions or hydronephrosis. At the lower pole there is a single 6 mm echogenic focus seen with twinkle artifact consistent with a nonobstructing stone. LEFT KIDNEY: 11.8 x 3.6 x 3.8 cm (SAG x AP x TRV). The kidney is normal in size, contour, and echogenicity. Renal cortical thickness is normal. No calculi or focal parenchymal lesions. No hydronephrosis. ADDITIONAL FINDINGS: The spleen is enlarged measuring 18 cm in greatest length. US/US renal BI IMPRESSION: 1. Nonobstructing 6 mm right lower pole renal calculus. 2. Splenomegaly. Electronically signed by: Matt Mcnair MD 05/06/2024 12:44 AM EDT
== END 2024-04-10 09:40 | disposition home or self-care (01) ==
LOC: HO.US 09:39
PROVIDERS: PCP Nurse Practitioner Primary Care; Visit Provider Internal Medicine Nephrology
DX: R35.0 Frequency of micturition (principal); R35.1 Nocturia
CPT/HCPCS: 76775

== ENCOUNTER 2024-04-14 11:20 | Outpatient (REF) | payer MEDICARE, MEDICAID, SELFPAY ==
--- NOTE | ~2024-04-14 | US_ITS ---
EXAMINATION: US PELVIS LIMITED (BLADDER) CLINICAL INFORMATION: Frequency of micturition, nocturia. COMPARISON: None available. TECHNIQUE: Real-time imaging of the bladder. FINDINGS: BLADDER: Well distended and normal. Bilateral ureteral jets are demonstrated. Prevoid bladder volume is 157 mL. Postvoid bladder volume is 8 mL. US/US bladder IMPRESSION: No significant postvoid residual. Electronically signed by: Zulema Mane MD 05/05/2024 05:09 PM EDT
== END 2024-04-14 11:21 | disposition home or self-care (01) ==
LOC: HO.HMGCX 11:20
PROVIDERS: PCP Nurse Practitioner Primary Care; Visit Provider Internal Medicine Nephrology
DX: R35.0 Frequency of micturition (principal); R35.1 Nocturia
CPT/HCPCS: 76857

== ENCOUNTER 2024-04-16 11:18 | Outpatient (AMB) | payer MEDICARE, MEDICAID, SELFPAY ==
--- NOTE | 2024-04-16 11:31 | A.OFFVIS_ITS ---
Intake Visit Reasons: 2/US Intake Note: Patient presents today for follow up on: OAB and ultrasound results Imaging Completed:04/10/24 & 04/14/24 Urology Med: none Antibiotic Allergy: Penicillins Blood Thinner: None [facility]acy: [facility] P[facility]: 0ml's [facility] Required: No Accompanied by: Unknown Allergies abacavir [ABACAVIR] Allergy (Severe, Verified 04/16/24 13:47) HIVES hydrochlorothiazide [HYDROCHLOROTHIAZIDE] Allergy (Severe, Verified 04/16/24 13:47) HIVES ibuprofen [From MOTRIN] Allergy (Severe, Verified 04/16/24 13:47) HIVES Penicillins [PENICILLINS] Allergy (Severe, Verified 04/16/24 13:47) HIVES tenofovir [From VIREAD] Allergy (Severe, Verified 04/16/24 13:47) HIVES tomato [TOMATO] Allergy (Severe, Verified 04/16/24 13:47) HIVES zidovudine [From RETROVIR] Allergy (Severe, Verified 04/16/24 13:47) HIVES lactose [Lactose] Adverse Reaction (Mild, Verified 04/16/24 13:47) DIARRHEA disoproxail Allergy (Mild, Uncoded 04/16/24 13:47) Unknown Medication List - Last Reconciled 04/16/24 by TREVON Manriquez acetaminophen 500 mg PO Q6H PRN albuterol sulfate 90 mcg/actuation 2 puffs inhalation Q4H PRN alendronate 70 mg PO QWEEK atorvastatin 10 mg PO DAILY mmggzgofm-euddyxvi-ztmqfty ala 50-200-25 mg (Biktarvy) 1 tab PO DAILY calcium carbonate-vitamin D3 600 mg-10 mcg (400 unit) (Calcium 600 + D(3)) 1 tab PO BID cholecalciferol (vitamin D3) (Vitamin D3) 25 mcg PO DAILY cyanocobalamin (vitamin B-12) (Vitamin B-12) 1,000 mcg PO DAILY divalproex 500 mg PO DAILY famciclovir 500 mg PO BID fluoride (sodium) 1.1% (Denta 5000 Plus) 1 appl PO DAILY folic acid 1 mg PO DAILY hydrocortisone 1% 1 appl topical BID PRN lactase (Lactaid Fast Act) 18,000 units PO QIDWMHS PRN levothyroxine 75 mcg PO QAM omeprazole 20 mg PO QAM 90 days oxybutynin chloride ER 5 mg PO DAILY quetiapine 200 mg PO TID 30 days sennosides-docusate sodium 8.6-50 mg (Stimulant Laxative Plus) 1 tab PO BID 90 days sertraline 100 mg PO DAILY simethicone 80 mg PO BEDTIME sodium chloride 0.65% (Saline Nasal) 1 spray intranasal BID trazodone 100 mg PO BEDTIME wheat dextrin (Benefiber Sugar Free (dextrin)) 1 packet PO BID HPI Comments Details: Adrianne is a 63-year-old female patient of Dr. Lindsay who was accompanied by her director social welfare. She has a past medical history of hypothyroidism, history of ETOH has been sober since 1999, diverticulosis, constipation, developmental delay, depression, PTSD, hyperlipidemia, seasonal allergies, history of hep C has since been treated, HIV, nocturia, and urinary frequency. She presents to the office today for follow-up of her lower urinary tract symptoms. Of note, patient was seen approximately 6 weeks ago at which time a retroperitoneal ultrasound was ordered for further assessment evaluation and plan was to obtain bladder diary as patient had been reporting episodes of urinary frequency however in discussion with staff that presented with the patient during office visit had reported patient does not use bathroom very frequently as she had been stating she did. Patient provides bladder diary for today's office visit. It appears in a 6 day she had not use the bathroom more than 8 times in 1 day with average volumes of 100-600 cc. We discussed at length healthy bathroom habits. Retroperitoneal ultrasound results reviewed with the patient and her director social welfare today. The bladder is well distended and normal. Bladder jets are demonstrated. Pre void bladder volume is approximately 160 mL. Postvoid bladder volume is approximately 10 mL. Bilateral kidneys are normal in size, contour, and echogenicity. Bilateral kidneys with no parenchymal lesions and or hydronephrosis noted. Right kidney with a single 6 mm echogenic focus consistent with a nonobstructing stone. We discussed nephrolithiasis and importance of adequate hydration in relation to nephrolithiasis. She currently denies any bothersome urinary issues or concerns. She denies incontinence, hematuria, dysuria, foul smelling urine, changes to urinary stream, flank pain, fever, and or chills. In office urinalysis results reviewed with the patient today. PVR 0 mL. She otherwise offers no other issues or concerns at this time. [facility] Medical History Positive serological reaction for syphilis Hypothyroidism Hx of acute pancreatitis Hx of acute renal failure History of ETOH abuse Hx of herpes genitalis History of diverticulosis Constipation History of intravenous drug abuse Developmental delay, mild COVID-19 vaccine series completed Depression PTSD (post-traumatic stress disorder) Hyperlipidemia Seasonal allergies Hx of hepatitis C HIV (human immunodeficiency virus infection) Nocturia Frequency of micturition Surgical History History of colonoscopy Family History Mother Alzheimer disease Breast cancer HTN (hypertension) Paternal Aunt Breast cancer Social History Household Members: Other Household Members Other:: [employer] Housing: Longterm Housing Other:: [facility] Are you a primary manager progressive care to a significant other at home: No Do you presently have visiting nurse or other home services: Yes Alcohol intake: former Patient Tobacco Use Status: Never used Tobacco e-Cigarette/Vaping Use: Never Used Second Hand Smoke Exposure: No service: No Sexual orientation: Decline to Answer Female Reproductive History Menstrual Age of Menarche: 11 Review of Systems Const Reports no additional complaints Eyes Reports no additional complaints ENT Reports no additional complaints Card Reports as per HPI Resp Reports no additional complaints GI Reports as per HPI Reports as per HPI Musc Reports as per HPI Neuro Reports as per HPI Psych Reports as per HPI Endo Reports as per HPI Arian/Lymph Reports as per HPI Aller/Immun Reports no additional complaints Physical Exam Const General: cooperative, comfortable, no acute distress, well developed, alert and awake Orientation/consciousness: patient oriented x3 Limitations: no limitations HEENT Head: Yes normal to inspection, Yes normocephalic and Yes atraumatic Ears: hearing grossly normal bilaterally Eyes General: appearance normal, both eyes and all related structures Neck Neck: Yes normal visual inspection and Yes trachea midline Chest Chest palpation & inspection: normal inspection of the chest Resp Effort & Inspection: normal respiratory effort and able to speak in complete sentences Cardio Rate: regular rate GI Inspection: Yes normal to inspection General: Yes no CVA tenderness Back/Spine/Pelvis Back: no CVA tenderness Skin General skin exam: no rashes or lesions noted Neuro General: patient oriented x3 Extrem General: Yes normal to inspection Psych Appearance: grossly normal and well kempt Mental Status: mental status grossly normal Speech and movement: Normal speech and movement present and Clear speech present Affect: normal affect Attitude: cooperative Thought process: Normal thought process present Thought content: Normal thought content present Insight: Limited insight present (Psych) Judgement: Limited judgement present (Psych) Office Procedures Post Void Residual Post Residual Void Post Void Residual (PVR): 0 [id number] Void Residual by ultrasound Results AMB Urinalysis, Automated UA Leukoctes 70 Patrick/uL Last Edit by Adeptence on 04/16/24 11:59 UA Nitrite Negative Last Edit by Adeptence on 04/16/24 11:59 UA Urobilinogen 0.2 mg/dL Last Edit by Adeptence on 04/16/24 11:59 UA Protein 0 mg/dL Last Edit by Adeptence on 04/16/24 11:59 UA pH 7.0 Last Edit by Adeptence on 04/16/24 11:59 UA Blood 10 New/uL Last Edit by Adeptence on 04/16/24 11:59 UA Specific [place] 1.010 Last Edit by Adeptence on 04/16/24 11:59 UA Ketone Negative Last Edit by Adeptence on 04/16/24 11:59 UA Bilirubin 0 mg/dL Last Edit by Adeptence on 04/16/24 11:59 UA Glucose 0 mg/dL Last Edit by Adeptence on 04/16/24 11:59 Results Reviewed Results Reviewed: Laboratory Last Values Urine pH (Auto) 7.0 04/16/24 11:57 Specific [place] (Auto) 1.010 04/16/24 11:57 Urine Protein (Auto) 0 mg/dL 04/16/24 11:57 Glucose (UA)(Auto) 0 mg/dL 04/16/24 11:57 Urine Ketones (Auto) Negative 04/16/24 11:57 Urine Blood (Auto) 10 New/uL 04/16/24 11:57 Urine Nitrite (Auto) Negative 04/16/24 11:57 Urine Bilirubin (Auto) 0 mg/dL 04/16/24 11:57 Urine Urobilinogen (Auto) 0.2 mg/dL 04/16/24 11:57 Leukocyte Esterase (Auto) 70 Patrick/uL 04/16/24 11:57 Date of Service: 04/14/24 EXAMINATION: US PELVIS LIMITED (BLADDER) FINDINGS: BLADDER: Well distended and normal. Bilateral ureteral jets are demonstrated. Prevoid bladder volume is 157 mL. Postvoid bladder volume is 8 mL. IMPRESSION: No significant postvoid residual. Date of Service: 04/10/24 EXAMINATION: US RETROPERITONEAL LIMITED (RENAL ONLY) FINDINGS: RIGHT KIDNEY: 11.1 x 4.5 x 5.5 cm (SAG x AP x TRV). The kidney is normal in size, contour, and echogenicity. Renal cortical thickness is normal. No focal parenchymal lesions or hydronephrosis. At the lower pole there is a single 6 mm echogenic focus seen with twinkle artifact consistent with a nonobstructing stone. LEFT KIDNEY: 11.8 x 3.6 x 3.8 cm (SAG x AP x TRV). The kidney is normal in size, contour, and echogenicity. Renal cortical thickness is normal. No calculi or focal parenchymal lesions. No hydronephrosis. ADDITIONAL FINDINGS: The spleen is enlarged measuring 18 cm in greatest length. IMPRESSION: 1. Nonobstructing 6 mm right lower pole renal calculus. 2. Splenomegaly. Assessment & Plan Assessment & Plan (1) Nephrolithiasis: Code(s): N20.0 - Calculus of kidney Category: Medical (2) Frequency of micturition: Code(s): R35.0 - Frequency of micturition Category: Medical Plan In office urinalysis results reviewed with the patient today; as noted above. PVR 0 mL. We discussed bladder diary; it does not appear patient patient is utilizing bathroom more than 6-8 times per day; we discussed healthy bladder habits. Recent retroperitoneal ultrasound results reviewed with the patient today; as noted above. We discussed potential causes of nephrolithiasis. Discussed, educated, and stressed the importance of adequate hydration relation to nephrolithiasis as well as overall health and well-being. Discussed adding 1 oz of lemon juice to water daily. Will continue with surveillance monitoring of reports of urinary frequency as well as nephrolithiasis. Follow-up in 6 months with PVR; or sooner with any issues, concerns, and or questions. Orders: Orders AMB Urinalysis Automated 04/16/24 Z13.9 - Encounter for screening, unspecified AMB Post Void Residual by ultrasound 04/16/24 N32.81 - Overactive bladder Patient Instructions: The patient had an opportunity to ask questions regarding the treatment plan. All questions were answered. Physical exam, labs, and imaging were discussed and reviewed in detail. As well as risks, benefits, and discussion of treatment choices. No major barriers to understanding were identified. The patient expressed understanding and agreement with the above treatment plan. The patient was made aware they should contact our office by phone for worsening of their current condition, the appearance of new symptoms, or with any questions or concerns. Compliance is encouraged with any medications and follow up testing that is ordered. It is a privilege to be allowed the opportunity to participate in? your urological care.? Again, if you have any questions or concerns If you have any questions or concerns please do not hesitate to contact me. The office is [phone]. This note is constructed using voice recognition software. While every effort has been made to ensure accuracy job developer errors may have been included. Yours sincerely, POLI Manriquez-CATA Coding Level of Care Code Est Pt Level 3 (44534) Complex EM visit Add On G2211 Diagnoses Nephrolithiasis N20.0 Frequency of micturition R35.0 CPT Codes Post Residual Void - PVR CPT Code: 03711-Pehp Void Residual by ultrasound ([id number])
== END 2024-04-16 12:04 | disposition home or self-care (01) ==
PROVIDERS: PCP Nurse Practitioner Primary Care; Visit Provider Nurse Practitioner Family
DX: N20.0 Calculus of kidney (principal); R35.0 Frequency of micturition
CPT/HCPCS: 99213; G2211

== ENCOUNTER → 2024-04-16 11:18 | Outpatient (BNVA) | payer MEDICARE, MEDICAID, SELFPAY | PROVIDERS: PCP Nurse Practitioner Primary Care; Visit Provider Nurse Practitioner Family | DX: N20.0 Calculus of kidney (principal); R35.0 Frequency of micturition; N32.81 Overactive bladder | CPT/HCPCS: 51798; 81003; 99212 ==

== ENCOUNTER 2024-05-14 10:28 | Outpatient (AMB) | payer MEDICARE, MEDICAID, SELFPAY ==
--- NOTE | 2024-05-14 10:30 | A.OFFVIS_ITS ---
Vital Signs 05/14/24 10:32 Height 5 ft 6 in Weight 182 lb 15.739 oz BMI 29.5 BP 104/65 Blood Pressure Location Rt brachial Position Sitting Pulse 93 Intake Visit Reasons: follow up Intake Note: Adrianne presents in the office as a follow up. CC: She states that she is not having any concerns at this time. Grading Clerk Required: No Allergies abacavir [ABACAVIR] Allergy (Severe, Verified 05/14/24 10:33) HIVES hydrochlorothiazide [HYDROCHLOROTHIAZIDE] Allergy (Severe, Verified 05/14/24 10:33) HIVES ibuprofen [From MOTRIN] Allergy (Severe, Verified 05/14/24 10:33) HIVES Penicillins [PENICILLINS] Allergy (Severe, Verified 05/14/24 10:33) HIVES tenofovir [From VIREAD] Allergy (Severe, Verified 05/14/24 10:33) HIVES tomato [TOMATO] Allergy (Severe, Verified 05/14/24 10:33) HIVES zidovudine [From RETROVIR] Allergy (Severe, Verified 05/14/24 10:33) HIVES lactose [Lactose] Adverse Reaction (Mild, Verified 05/14/24 10:33) DIARRHEA disoproxail Allergy (Mild, Uncoded 05/14/24 10:33) Unknown Medication List - Last Reconciled 05/14/24 by Helena Coon MD acetaminophen 500 mg PO Q6H PRN albuterol sulfate 90 mcg/actuation 2 puffs inhalation Q4H PRN alendronate 70 mg PO QWEEK atorvastatin 10 mg PO DAILY zhkftaday-qebnsmnq-cjfqhvp ala 50-200-25 mg (Biktarvy) 1 tab PO DAILY calcium carbonate-vitamin D3 600 mg-10 mcg (400 unit) (Calcium 600 + D(3)) 1 tab PO BID cholecalciferol (vitamin D3) (Vitamin D3) 25 mcg PO DAILY cyanocobalamin (vitamin B-12) 500 mcg PO DAILY divalproex ER 500 mg PO TID famciclovir 500 mg PO BID fluoride (sodium) 1.1% (Denta 5000 Plus) 1 appl PO DAILY folic acid 1 mg PO DAILY hydrocortisone 1% 1 appl topical BID PRN lactase (Lactaid Fast Act) 18,000 units PO QIDWMHS PRN lactase (Lactase Fast Acting) units PO levothyroxine 75 mcg PO QAM omeprazole 20 mg PO QAM 90 days oxybutynin chloride ER 5 mg PO DAILY quetiapine 200 mg PO TID 30 days sennosides-docusate sodium 8.6-50 mg (Stimulant Laxative Plus) 1 tab PO BID 90 days sertraline 100 mg PO DAILY simethicone 80 mg PO BEDTIME sodium chloride 0.65% (Saline Nasal) 1 spray intranasal BID trazodone 100 mg PO BEDTIME wheat dextrin (Benefiber Sugar Free (dextrin)) 1 packet PO BID HPI HPI follow up: Details: FU GI CLINIC VISIT FOR THIS 63-YEAR-OLD FEMALE FOR FOLLOW-UP OF LIVER CIRRHOSIS WITH ELEVATED LFTS AND CHRONIC CONSTIPATION. TODAY'S VISIT Patient cc: abdominal pain with gasses, diarrhea and constipation. Pt is accompanied by a staff member of [facility] Custodial Complains of a sore back. Pt complains of intermittent constipation (Custodial staff reports she is not constipated) PAST VISIT: Noted periumblical pain yesterday and radiating around to the back Pain comes and goes and notes increased pain when having a BM and resolves after she has a BM. Has to drink a lot of water. Had diarrhea for 1 day last week Has a BM every other day with hard stool associated with straining Abd US results were reviewed Intermittent constipation. Notes intermittent RLQ pain which resolves after she has a BM. Having a BM daily with straining and hard stools Also has gas. Taking Senna 3 times a week and advised to take it every day. Notes some urinary burning with micturation. Has a BM in the morning or afternoon every other day Had COVID in June Loosing and gaining weight. Has loose stools 2-3 times a day without blood or mucous. Notes diarrhea with cheese and milk products and takes Lactaid milk. Feels tired and notes nausea. Complains of pain in the botton of her foot. Intermittent abdominal pain. Had a BM twice this week. Has a BM after she eats ice cream or takes a Latte ? Doing about the same. Denies recurrent rectal bleeding Complains of heartburn once in a while. Occasional loose stools and takes loperamide prn. ? Has GERD and notes dysphagia if she drinks water too fast. Lives in a Residential Home setting in her own apartment in [place]. ? [place] [facility] [place] [facility] in the past. ? 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 ? Also heavy ETOH use from age 18/18 till age 39 yrs - clean and sober since then. ? Renal Failure and pancreatitis in 2008. ? Had vomiting and Jaundice in 2009 - diagnosed with Hep C and ?was treated. ? Constantly tired and fatigued. ? 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 ? CHRONIC ILLNESSES:?seasonal allergies, hepatitis C - treated, human immunodeficiency virus (HIV), positive, GERD, lactose intolerance, depression, insomnia, PTSD, herpes, prediabetic, hyperlipidemia ?PAST LABS IN [facility]:?02/16/20 REVIEWED. WBC 4.4, HEMATOCRIT 43.1 PLATELET 85, INR 1.0 ? CR 1.25, TB 0.9 nA 144, total bilirubin 0.6 WITH NORMAL LFTS ? Iron studies showed iron 73, TIBC 354, % saturation 21, ferritin 344 ? Celiac serologies were negative, IgA was 131 ? Liver fibrosis score 0.63, liver fibrosis stage F3, necroinflammatory score 0.46 ?IMAGING STUDIES: 06/28/21 abd us showed: Slightly echogenic liver. No focal liver lesion is seen. Enlarged spleen. No ascites. Normal liver Doppler exam. 08/2020Question mild cirrhotic changes of the liver. No focal liver lesion seen. Splenomegaly. ?ENDOSCOPIC STUDIES:?02/07/21 COLONOSCOPY SHOWED: One medium sized polyp removed. Random biopsies were obtained from right and left colon to check for microscopic colitis Moderate diverticulosis seen in the left colon Plan:? Patient has an appointment on 02/23/21 in the GI Clinic with? Helena Coon M.D. Repeat Colonoscopy interval based on path results - in 3 years if polyp is adenomatous and 10 years if polyp is hyperplastic. BIOPSIES SHOWED: A.? Colon, random right, biopsy:? Colonic mucosa within normal limits; negative for active, chronic or microscopic colitis. B.? Colon, random left, biopsy:? Colonic mucosa within normal limits; negative for active, chronic or microscopic colitis. C.? Rectum, polypectomy:? Clinically polypoid colonic mucosa noted; negative for a hyperplastic or neoplastic process. 09/08/19 EGD WAS NORMAL, NO VARICES WERE SEEN.? SAME-DAY COLONOSCOPY REVEALED MODERATE DIVERTICULOSIS AND NO POLYPS WERE DETECTED.? REPEAT COLONOSCOPY IS ADVISED IN 5 YEARS DUE TO FAIR PREP AND POSITIVE FH OF COLON POLYPS (DAD). ?PAST VISIT: US results reviewed with the patient Bleeding stopped - notes only once in a while. Notes a sharp pain in her abdomen when she pushes during a BM. Notes hard stools. ?Intentional wt loss of 35 lbs - has been eating healthy - from 210 to 181 lbs. ? I am always constipated. ? Intermittent diarrhea - takes medications when she has diarrhea. ? Denies abdominal pain. ? Continues to have intermittent bleeding _ ? vaginal versus rectal ? Intermittent vaginal bleeding - 2-3 times this week. scheduled for pelvic US on 12/22/20 ? every time she wipes she notices some blood - unsure if she is bleeding from the vagina. ? ? ? Periods stopped when she was 39 yrs ? ? ? Denies having a recent Pelvic examination. ? ? ? Notices lower abdominal cramps - like menstrual cramps. ? ? ? Exercising daily (does Kavin) and weighs 183 lbs (decreased from 210 lbs). ? ? ? Eating a healthy diet. ? I am doing fine and walk around ? I am always tired ? Lost weight from > 200 to 194 ? Has been doing well and denies stomach issues at this time. ? Patient denies change in bowel habits, black stools or rectal bleeding ? Denies dysphagia, heartburn, nausea or vomiting, change in appetite?or w PFSH Medical History Positive serological reaction for syphilis Hypothyroidism Hx of acute pancreatitis Hx of acute renal failure History of ETOH abuse Hx of herpes genitalis History of diverticulosis Constipation History of intravenous drug abuse Developmental delay, mild COVID-19 vaccine series completed Depression PTSD (post-traumatic stress disorder) Hyperlipidemia Seasonal allergies Hx of hepatitis C HIV (human immunodeficiency virus infection) Nocturia Frequency of micturition Surgical History History of colonoscopy Family History Mother Alzheimer disease Breast cancer HTN (hypertension) Paternal Aunt Breast cancer Social History Household Members: Other Household Members Other:: [employer] Housing: Half-Way Housing Other:: Custodial Are you a primary hospice patient care secretary to a significant other at home: No Do you presently have visiting nurse or other home services: Yes Alcohol intake: former Patient Tobacco Use Status: Never used Tobacco e-Cigarette/Vaping Use: Never Used Second Hand Smoke Exposure: No service: No Sexual orientation: Decline to Answer Female Reproductive History Menstrual Age of Menarche: 11 Review of Systems Const All systems reviewed & are unremarkable except as noted in HPI and below Physical Exam Vital Signs: Last Vital Signs Pulse 93 05/14/24 10:32 BP 104/65 05/14/24 10:32 BMI result Body Mass Index 29.5 Const General: healthy appearing and no acute distress Nutritional Appearance: overweight Orientation/consciousness: patient oriented x3 Limitations: other limitations (Cognitive delay) HEENT Head: Yes normal to inspection Ears: hearing grossly normal bilaterally Eyes Sclerae: sclerae normal Pupils: Equal, round and reactive pupils present Neck Neck: Yes normal visual inspection Chest Chest palpation & inspection: normal inspection of the chest Resp Effort & Inspection: normal respiratory effort Auscultation: clear to auscultation bilaterally Cardio Palpation: normal PMI Rate: regular rate Rhythm: regular rhythm Heart sounds: S1 normal heart sound present, S2 normal heart sound present and no murmurs GI Palpation (GI): Soft to palpation, nontender and No hepatosplenomegaly present Auscultation: normal bowel sounds Rectal Exam - Female: deferred Skin General skin exam: no rashes or lesions noted Neuro General: patient oriented x3, gait normal and moves all extremities Cranial nerves: Yes Equal, round and reactive pupils present Psych Appearance: grossly normal Mental Status: mental status grossly normal Assessment & Plan Assessment & Plan (1) GERD (gastroesophageal reflux disease): Code(s): K21.9 - Gastro-esophageal reflux disease without esophagitis Category: Medical (2) Cirrhosis of liver without ascites: Code(s): K74.60 - Unspecified cirrhosis of liver Category: Medical (3) Colon cancer screening: Comment: 09/24 COLONOSCOPY REVEALED MODERATE DIVERTICULOSIS AND NO POLYPS WERE DETECTED. REPEAT COLONOSCOPY IS ADVISED IN 5 YEARS DUE TO FAIR PREP AND POSITIVE FH OF COLON POLYPS (DAD) - action set in [facility] Code(s): Z12.11 - Encounter for screening for malignant neoplasm of colon Category: Medical (4) Thrombocytopenia: Code(s): D69.6 - Thrombocytopenia, unspecified Category: Medical (5) Chronic constipation: Code(s): K59.09 - Other constipation Category: Medical Plan 63 YF with cognitive developmental delay, seasonal allergies, hepatitis C - treated, human immunodeficiency virus (HIV), positive, GERD, lactose intole celso, depression, insomnia, PTSD, herpes, prediabetic, hyperlipidemia seen for elevated LFTs with cirrhosis. Patient is on treatment for HIV. She has a history of past hepatitis C which has been treated (records pertaining to treatment are not available) since recent hepatitis C viral load has been negative. Past lab evaluation with [facility] was negative 2017. Likely cause of elevated LFT is steatohepatitis related to obesity - LFT are normal since she lost 27 lbs. Iron studies were not suggestive of hemochromatosis and celiac serologies were normal. Liver fibrosis score was 0.63 and liver fibrosis stage was F3 and necroinflammatory score was 0.46 indicating that she may have compensated cirrhosis. Cirrhosis is likely multifactorial - steatohepatitis, past EtOH use and hepatitis C infection. MELD score is 8. Abdominal ultrasound showed mild splenomegaly without hepatic mass and no ascites. Patient admits to intentional weight loss with the normalization of LFTs indicating elevated LFTs were likely due to steatohepatitis. 05/09/23 Pt complains of worsening constipation. She was advised to increase Senna plus to 2 capsules at bedtime for constipation Schedule an [facility] for HCC surveillance. 11/14/23 Having a BM daily with straining and hard stools Taking Senna 3 times a week and advised to take it every day. 03/26/24 Noted periumblical pain yesterday and radiating around to the back Pain comes and goes and notes increased pain when having a BM and resolves after she has a BM. Has to drink a lot of water. Had diarrhea for 1 day last week Has a BM every other day with hard stool associated with straining Advised to increase senna to twice a day for constipation 05/14/24 Pt complains of intermittent constipation (Custodial staff reports she is not constipated) FU in months Orders: Orders US abdomen limited Today K74.60 - Unspecified cirrhosis of liver Coding Level of Care Code Est Pt Level 3 (51719) Diagnoses GERD (gastroesophageal reflux disease) K21.9 Cirrhosis of liver without ascites K74.60 Colon cancer screening Z12.11 Thrombocytopenia D69.6 Chronic constipation K59.09 Time Spent (min) 18
[2024-05-14 10:32] VITALS: BP 104/65; PULSE 93; BMI 29.5
== END 2024-05-14 11:05 | disposition home or self-care (01) ==
LOC: HO.HGI 10:29
PROVIDERS: PCP Nurse Practitioner Primary Care; Visit Provider Internal Medicine Gastroenterology
DX: K21.9 Gastro-esophageal reflux disease without esophagitis (principal); K74.60 Unspecified cirrhosis of liver; Z12.11 Encounter for screening for malignant neoplasm of colon; D69.6 Thrombocytopenia, unspecified; K59.09 Other constipation
CPT/HCPCS: 99213

== ENCOUNTER → 2024-05-14 10:28 | Outpatient (BNVA) | payer MEDICARE, MEDICAID, SELFPAY | PROVIDERS: PCP Nurse Practitioner Primary Care; Visit Provider Internal Medicine Gastroenterology | DX: K74.60 Unspecified cirrhosis of liver (principal); K21.9 Gastro-esophageal reflux disease without esophagitis; K59.09 Other constipation; D69.6 Thrombocytopenia, unspecified; Z12.11 Encounter for screening for malignant neoplasm of colon | CPT/HCPCS: 99212 ==

== ENCOUNTER 2024-05-22 10:06 | Outpatient (REF) | payer MEDICARE, MEDICAID, SELFPAY ==
--- NOTE | ~2024-05-22 | US_ITS ---
EXAMINATION: US ABDOMEN LIMITED CLINICAL INFORMATION: Unspecified cirrhosis of liver. COMPARISON: Ultrasound renal 04/10/2024. Ultrasound abdomen 09/04/2023 and 06/28/2021. CT abdomen and pelvis 03/29/2015. TECHNIQUE: Real-time imaging of the right upper quadrant abdominal viscera. FINDINGS: PANCREAS: The visualized portion of the pancreas head and body are normal, portion of the pancreatic body and tail, not visualized are obscured by bowel gas. LIVER: Heterogeneous liver texture with nodular surface concerning for liver cirrhosis. No focal hepatic lesion. There is no intrahepatic biliary duct dilatation seen. GALLBLADDER: Normal. The gallbladder is physiologically distended without evidence of stones, sludge, polyps, wall thickening or pericholecystic fluid. COMMON BILE DUCT: Normal in caliber measuring 0.3 cm in diameter. RIGHT KIDNEY: Mild fullness of renal pelvis without evidence of hydronephrosis. No hydronephrosis. No renal calculi or focal parenchymal lesions. The kidney measures 9.6 cm in maximum dimension. FREE FLUID: None. US/US abdomen limited IMPRESSION: 1. Heterogeneous liver texture with nodular surface concerning for liver parenchymal disease steatosis and/or cirrhosis. 2. No ultrasound evidence of focal liver lesion. Electronically signed by: Poonam Mcdonald MD 05/24/2024 05:51 PM [facility]
== END 2024-05-22 10:07 | disposition home or self-care (01) ==
LOC: HO.US 10:06
PROVIDERS: PCP Nurse Practitioner Primary Care; Visit Provider Internal Medicine Gastroenterology
DX: K74.60 Unspecified cirrhosis of liver (principal)
CPT/HCPCS: 76705

== ENCOUNTER 2024-06-24 07:56 | Emergency (ER) | payer MEDICARE, MEDICAID, SELFPAY ==
--- NOTE | ~2024-06-24 | CT_ITS ---
EXAMINATION: CT CERVICAL SPINE WITHOUT CONTRAST CLINICAL INFORMATION: Trauma COMPARISON: None available. TECHNIQUE: In section axial images with sagittal and coronal reformats This CT examination was performed using dose optimization techniques as appropriate, variously including the following: *Automated exposure control *Adjustment of mA and/or kV according to patient size (this includes techniques or standardized protocols for targeted exams where dose is matched to indication/reason for exam; i.e. extremities or head) *Use of iterative reconstruction technique DLP: 156 mGy-cm FINDINGS: There is moderate to advanced degenerative change observed, C3-4, C4-5, C5-6 and to lesser extent C6-7 with disc space narrowing and posterior spurring but no fracture, destructive process or encroachment on the spinal canal. The prevertebral soft tissues are normal. CT/CT cervical spine wo IV con IMPRESSION: Chronic changes observed. No acute findings. Fleischner guidelines were followed. Electronically signed by: Matthew Terrazas MD 06/24/2024 10:10 AM [facility]
--- NOTE | ~2024-06-24 | CT_ITS ---
EXAMINATION: CT HEAD WITHOUT CONTRAST CLINICAL INFORMATION: Trauma COMPARISON: None available. TECHNIQUE: Contiguous axial imaging was performed from the skull base to vertex without intravenous administration of contrast. This CT examination was performed using dose optimization techniques as appropriate, variously including the following: *Automated exposure control *Adjustment of mA and/or kV according to patient size (this includes techniques or standardized protocols for targeted exams where dose is matched to indication/reason for exam; i.e. extremities or head) *Use of iterative reconstruction technique DLP: 699 mGy-cm FINDINGS: There is mild prominence to the sulci and ventricles compatible with involutional change. No intra or extra-axial fluid collection or hemorrhage, mass, or mass effect. Calvarium intact. CT/CT head/brain wo IV con IMPRESSION: No acute intracranial pathology. Electronically signed by: Matthew Terrazas MD 06/24/2024 10:05 AM [facility]
[2024-06-24 08:05] VITALS: BP 124/80; PULSE 103; O2SAT 96
[2024-06-24 08:06] VITALS: BP 107/60; PULSE 99; RESP 18; TEMP 36.9; O2SAT 95; BMI 31.9
--- NOTE | 2024-06-24 08:08 | ED_ITS ---
HPI - Fall General Chief Complaint: Fall Stated Complaint: FROM GH, FELL OOB, COLLARED Source: patient and EMS Mode of arrival: EMS History of Present Illness HPI Narrative: This is 63 years old patient from a long-term with multiple medical problems which HIV disease, syphilis, hep C, PTSD, cognitive impairment presented to emergency department via ambulance after a fall. Patient fell out of bed she is complaining of neck pain and headache see no chest wall pain no abdominal pain no extremities pain. MD complaint: fall Onset (ago): hour(s) (1) Fall from: out of bed Fall witnessed: no Place fall occurred: other (long-term) Loss of consciousness: none Prolonged down time: no Symptoms prior to fall: none Location of injury: head and neck Quality: burning Associated symptoms (after fall): neck pain Related Data Home Medications ?Medication ?Instructions ?Recorded ?Confirmed alendronate 70 mg tablet 70 mg PO QWEEK 06/24/20 05/14/24 acetaminophen 500 mg tablet 500 mg PO Q6H PRN Pain 01/31/21 05/14/24 bictegravir 50 mg-emtricitabine 1 tab PO DAILY 01/31/21 05/14/24 200 mg-tenofovir alafenam 25 mg tablet (Biktarvy) calcium 600 mg (as 1 tab PO BID 01/31/21 05/14/24 carbonate)-vitamin D3 10 mcg (400 unit) tablet (Calcium 600 + D(3)) cholecalciferol (vitamin D3) 25 25 mcg PO DAILY 01/31/21 05/14/24 mcg (1,000 unit) capsule (Vitamin D3) folic acid 1 mg tablet 1 mg PO DAILY 01/31/21 05/14/24 sodium chloride 0.65 % nasal spray 1 spray intranasal BID 01/31/21 05/14/24 aerosol (Saline Nasal) albuterol sulfate 90 mcg/actuation 2 puff inhalation Q4H PRN Wheezing 03/23/21 05/14/24 aerosol inhaler simethicone 80 mg chewable tablet 80 mg PO BEDTIME 05/09/23 05/14/24 hydrocortisone 1 % topical cream 1 appl topical BID PRN Rash 05/16/23 05/14/24 lactase 9,000 unit chewable tablet 18,000 unit PO QIDWMHS PRN EATING 05/16/23 05/14/24 (Lactaid Fast Act) DIARY sertraline 100 mg tablet 100 mg PO DAILY 05/16/23 05/14/24 wheat dextrin 3 gram/4 gram oral 1 packet PO BID 05/16/23 05/14/24 powder (Benefiber Sugar Free (dextrin)) atorvastatin 10 mg tablet 10 mg PO DAILY 03/11/24 05/14/24 famciclovir 500 mg tablet 500 mg PO BID 03/11/24 05/14/24 oxybutynin chloride 5 mg 5 mg PO DAILY 03/11/24 05/14/24 tablet,extended release 24 hr trazodone 100 mg tablet 100 mg PO BEDTIME 03/11/24 05/14/24 fluoride (sodium) 1.1 % dental 1 appl PO DAILY 04/16/24 05/14/24 cream (Denta 5000 Plus) cyanocobalamin (vitamin B-12) 500 500 mcg PO DAILY 05/14/24 05/14/24 mcg tablet divalproex 500 mg tablet,extended 500 mg PO TID 05/14/24 05/14/24 release 24 hr lactase 9,000 unit tablet (Lactase unit PO 05/14/24 05/14/24 Fast Acting) Previous Rx's ?Medication ?Instructions ?Recorded levothyroxine 75 mcg tablet 75 mcg PO QAM #28 tabs 08/31/21 quetiapine 200 mg tablet 200 mg PO TID 30 days #90 tabs 06/03/23 omeprazole 20 mg capsule,delayed 20 mg PO QAM 90 days #90 caps 02/11/24 release sennosides 8.6 mg-docusate sodium 1 tab PO BID 90 days #180 tabs 04/09/24 50 mg tablet (Stimulant Laxative Plus) Allergies Allergy/AdvReac Type Severity Reaction Status Date / Time abacavir [ABACAVIR] Allergy Severe HIVES Verified 06/24/24 08:07 hydrochlorothiazide Allergy Severe HIVES Verified 06/24/24 08:07 [HYDROCHLOROTHIAZIDE] ibuprofen [From MOTRIN] Allergy Severe HIVES Verified 06/24/24 08:07 Penicillins [PENICILLINS] Allergy Severe HIVES Verified 06/24/24 08:07 tenofovir [From VIREAD] Allergy Severe HIVES Verified 06/24/24 08:07 tomato [TOMATO] Allergy Severe HIVES Verified 06/24/24 08:07 zidovudine [From RETROVIR] Allergy Severe HIVES Verified 06/24/24 08:07 lactose [Lactose] AdvReac Mild DIARRHEA Verified 06/24/24 08:07 disoproxail Allergy Mild Unknown Uncoded 06/24/24 08:07 Review of Systems Constitutional: Constitutional: Reports no additional constitutional complaints ENT: Reports system reviewed and no additional complaints, except as documented Gastrointestinal: Gastrointestinal: Reports no additional gastrointestinal complaints PMFSH Past Medical History Medical History Positive serological reaction for syphilis Hypothyroidism Hx of acute pancreatitis Hx of acute renal failure History of ETOH abuse Hx of herpes genitalis History of diverticulosis Constipation History of intravenous drug abuse Developmental delay, mild COVID-19 vaccine series completed Depression PTSD (post-traumatic stress disorder) Hyperlipidemia Seasonal allergies Hx of hepatitis C HIV (human immunodeficiency virus infection) Nocturia Frequency of micturition Surgical History History of colonoscopy Family History Family History Mother Alzheimer disease Breast cancer HTN (hypertension) Paternal Aunt Breast cancer Social History Social History Household Members: Other Household Members Other:: [employer] Housing: Long Term Housing Other:: [facility] Are you a primary healthcare consultant to a significant other at home: No Do you presently have visiting nurse or other home services: Yes Unable to assess alcohol history related to: Unknown Alcohol intake: former Patient Tobacco Use Status: Never used Tobacco Smoked in Last 30 Days: No e-Cigarette/Vaping Use: Never Used Second Hand Smoke Exposure: No Use of substances other than those prescribed or required for medical reasons: Unknown Advance Directives: No Advance Directives Information Provided: Yes service: No Sexual orientation: Decline to Answer Physical Exam Vital Signs: Vital Signs: Last Vital Signs Temp 98.5 F 06/24/24 08:06 Pulse 99 06/24/24 08:06 Resp 18 06/24/24 08:06 BP 107/60 06/24/24 08:06 Pulse Ox 95 06/24/24 08:06 O2 Del Method Room Air 06/24/24 08:06 BMI result Body Mass Index 31.9 Examination she looks well she has stable vital signs as 08:06 am Const: General: cooperative Nutritional Appearance: average body habitus Orientation/consciousness: patient oriented x3 HEENT: Head: Yes normal to inspection General nose exam: Normal external nose present Face and sinus: Yes normal facial exam Mouth: Normal oral and palatal mucosa present Throat: Yes posterior oropharynx normal Neck: Neck: Yes normal visual inspection Thyroid: Thyroid normal Resp: Effort & Inspection: normal respiratory effort Auscultation: clear to auscultation bilaterally Cardio: Jugular venous distension: no JVD Rate: regular rate Rhythm: regular rhythm GI: Inspection: Yes normal to inspection Palpation (GI): Soft to palpation Auscultation: normal bowel sounds Skin: General skin exam: no rashes or lesions noted, elasticity normal and turgor normal Lesions: no lesions Rashes: no rashes Trauma: no lacerations or abrasions Neuro: General: patient oriented x3 Medical Decision Making Medical Decision Making [facility] Narrative: She patient is here after a fall from the bed, she is complaining of neck pain and headache will order imaging Differential Diagnosis Differential Diagnoses: The differential diagnosis associated with the presentation includes Subdural hematoma/epidural hematoma/cervical spine fracture Independent Interpretation I performed an independent interpretation of an: CT Scan Interpretation: CT reviewed interpreted by me as no fracture the subdural Radiology Impression Discussion of test interpretation with radiology: I have reviewed the radiologist's reading. Radiologist Impression: negative fx cspine,negative head ct Independent Historian Clinical information obtained from an independent historian. History obtained from or confirmed by: EMS Chronic Conditions Patient?s care impacted by: Other intellectual disability Discharge Plan Discharge Clinical Impression: Head injury Qualifiers: Encounter type: initial encounter Qualified Code(s): S09.90XA - Unspecified injury of head, initial encounter Neck strain Qualifiers: Encounter type: initial encounter Qualified Code(s): S16.1XXA - Strain of muscle, fascia and tendon at neck level, initial encounter Patient Disposition: Home, Self-Care Instructions: Head Injury (ED) Additional Instructions: Follow-up with your primary care physician you could take Tylenol as needed for pain return if you worse Prescriptions: No Action levothyroxine 75 mcg tablet 75 mcg PO QAM Qty: 28 10RF omeprazole 20 mg capsule,delayed release(DR/EC) 20 mg PO QAM 90 Days Qty: 90 1RF sennosides-docusate sodium [Stimulant Laxative Plus] 8.6-50 mg tablet 1 tab PO BID 90 Days Qty: 180 1RF acetaminophen 500 mg Tablet 500 mg PO Q6H PRN (Reason: Pain) folic acid 1 mg Tablet 1 mg PO DAILY cholecalciferol (vitamin D3) [Vitamin D3] 25 mcg (1,000 unit) Capsule 25 mcg PO DAILY Saline Nasal 0.65 % Aerosol,Arthur 1 spray INTRANASAL BID calcium carbonate-vitamin D3 [Calcium 600 + D(3)] 600 mg(1,500mg) -400 unit Tablet 1 tab PO BID Biktarvy 50-200-25 mg Tablet 1 tab PO DAILY sertraline 100 mg tablet 100 mg PO DAILY hydrocortisone 1 % Cream 1 appl TOPICAL BID PRN (Reason: Rash) Lactaid Fast Act 9,000 unit Tablet,Chewable 18,000 unit PO QIDWMHS PRN (Reason: EATING DIARY) Rx Instructions: administer with meals and/or snacks Benefiber Sugar Free (dextrin) 3 gram/4 gram Powder 1 packet PO BID Rx Instructions: mix into at least 4 oz water or juice before administering quetiapine 200 mg Tablet 200 mg PO TID 30 Days Qty: 90 0RF alendronate 70 mg tablet 70 mg PO QWEEK albuterol sulfate 90 mcg/actuation HFA aerosol inhaler 2 puff inhalation Q4H PRN (Reason: Wheezing) simethicone 80 mg tablet,chewable 80 mg PO BEDTIME famciclovir 500 mg tablet 500 mg PO BID divalproex 500 mg tablet extended release 24 hr 500 mg PO TID cyanocobalamin (vitamin B-12) 500 mcg tablet 500 mcg PO DAILY lactase [Lactase Fast Acting] 9,000 unit tablet PO oxybutynin chloride 5 mg tablet extended release 24hr 5 mg PO DAILY trazodone 100 mg tablet 100 mg PO BEDTIME atorvastatin 10 mg tablet 10 mg PO DAILY fluoride (sodium) [Denta 5000 Plus] 1.1 % cream 1 appl PO DAILY Referrals: Physician,Unknown J [Primary Care Provider] - 2 days Print Language: [place]
--- NOTE | 2024-06-24 09:47 | PC.NURSE ---
Lars to remove C collar per dr story
[2024-06-24] MEDS: Acetaminophen 325 MG TABLET 975 MG PO (11:00)
[2024-06-24 11:06] VITALS: BP 110/80; PULSE 90; RESP 16; TEMP 36.5; O2SAT 100
== END 2024-06-24 11:08 | disposition home or self-care (01) ==
PROVIDERS: Emergency Provider Emergency Medicine
DX: S09.90XA Unspecified injury of head, initial encounter (principal); S16.1XXA Strain of muscle, fascia and tendon at neck level, initial encounter; M54.2 Cervicalgia; R51.9 Headache, unspecified; W06.XXXA Fall from bed, initial encounter; Y93.89 Activity, other specified; Y92.89 Other specified places as the place of occurrence of the external cause; Y99.8 Other external cause status; Z79.899 Other long term (current) drug therapy
CPT/HCPCS: 70450; 72125; 99284

== ENCOUNTER 2024-06-26 08:41 | Outpatient (REF) | payer MEDICARE, MEDICAID, SELFPAY ==
[2024-06-26 11:39] LABS: MANUAL DIFF FLAG NO
[2024-06-26 11:41] LABS: Basophils Percent Auto 0.3 % (0-2); Eosinophils Percent Auto 0.6 % (0-4); Hematocrit 35.1 % (37.0-47.0); Hemoglobin 12.3 g/dl (12.0-16.0); Imm Gran Abs Auto 0.03 X10*3/uL (0.00-0.03); Imm Gran Pct Auto 0.9 % (0.0-0.4); Lymphocytes Percent Auto 30.1 % (20-40); Mean Corpuscular Hemoglobin 40.9 pg (27.0-33.0); Mean Platelet Volume 9.2 fL (9.4-12.3); Monocytes Absolute Auto 0.3 X10*3/uL (0.1-1.2); Monocytes Percent Auto 8.8 % (2-11); Neutrophils Percent Auto 59.3 % (45-73); Red Blood Count 3.01 X10*6/uL (4.20-5.50); Red Cell Distribution Width 12.9 % (11.0-16.0); White Blood Count 3.3 X10*3/uL (4.8-10.8)
[2024-06-26 11:42] LABS: Mean Corpuscular Volume 116.6 fL (80.0-98.0); Platelet Count 58 X10*3/uL (160-400)
[2024-06-26 12:02] LABS: Appearance Urine Cloudy; Color Urine Dark Yellow; Glucose Urine UA Negative (Negative); Leukocyte Esterase Urine Large (3+) (Negative); Nitrite Urine Negative (Negative); UMIC TRIGGER UACC YES; Urine Blood Trace (Negative); Urine Ketones Negative (Negative); Urine Protein Trace mg/dL (Neg-Trace)
[2024-06-26 12:02] LABS: Alanine Aminotransferase 15 U/L (0-31); Albumin Level 3.9 g/dL (3.5-5.0); Alkaline Phosphatase 33 U/L (39-117); Anion Gap 14 (12-20); Aspartate Amino Transferase 41 U/L (5-31); Bilirubin Total 0.6 mg/dL (0.0-1.0); Blood Urea Nitrogen 21 mg/dL (9-16); Calcium 8.7 mg/dL (8.4-10.2); Carbon Dioxide 24 mmol/L (22-29); Chloride 106 mmol/L (96-108); Estimated Glomerular Filt Rate 42; Glucose Random 200 mg/dL (60-115); Potassium 4.1 mmol/L (3.3-5.1); Sodium 140 mmol/L (135-145); Total Protein 6.8 g/dL (6.5-8.0)
[2024-06-26 12:09] LABS: Bacteria Urine Trace (None Seen); Hyaline Casts Urine 0-2 /LPF (0-2); Squamous Epithelial Cell Urine 0-2 /HPF (0-2); UACC Culture Trigger YES; WBC Urine >50 /HPF (0-5)
[2024-06-29 13:12] LABS: TS Negative Control Passed; TS Panel A 0; TS Panel B 0; TS Positive Control Passed; TSpotTB Negative (Negative)
[2024-06-30 02:39] LABS: HIV RNA PCR Qn Copies 50 copies/mL (NOT DETECTED)
[2024-07-01 13:43] LABS: Absolute CD3 Count 742 cells/uL (840-3060); Absolute CD4 Count 374 cells/uL (490-1740); Absolute CD8 Count 381 cells/uL (180-1170); Absolute Lymphocytes 866 cells/uL (850-3900); CD4 CD8 Ratio 0.98 (0.86-5.00); Percent CD3 Cells 86 % (57-85); Percent CD4 Cells 43 % (30-61); Percent CD8 Cells 44 % (12-42)
== END 2024-06-26 08:42 | disposition home or self-care (01) ==
LOC: HO.HHCL 08:41
PROVIDERS: Visit Provider Student in an Organized Health Care Education/Training Program
DX: Z21 Asymptomatic human immunodeficiency virus [HIV] infection status (principal)
CPT/HCPCS: 36415; 80053; 81001; 85025; 86359; 86360; 86481; 87086; 87536

== ENCOUNTER 2024-07-14 07:24 | Inpatient (IN) | payer MEDICARE, MEDICAID, SELFPAY ==
[2024-07-14] VITALS (16 sets, daily range): BP systolic 90–128; BP diastolic 48–80; PULSE 99–120; RESP 16–20; TEMP 36.7–38.7; O2SAT 94–98; BMI 31.0
--- NOTE | ~2024-07-14 | CT_ITS ---
EXAMINATION: CT brain, CT cervical spine and chest x-ray. CLINICAL INDICATION: Trauma. COMPARISON: CT brain and CT cervical spine 06/24/2024. Chest x-ray 01/11/2019. TECHNIQUE: 3 mm thin axial and reformatted 2 mm thin sagittal and coronal images of cervical spine were obtained. Subsequently axial 5 mm thin and reformatted 2 mm thin sagittal images of brain were obtained. DLP: [id number]. This CT examination was performed using dose optimization techniques as appropriate, variously including the following: - Automated exposure control - Adjustment of mA and/or kV according to patient size (this includes techniques or standardized protocols for targeted exams where dose is matched to indication/reason for exam; i.e. extremities or head) - Use of iterative reconstruction technique. Chest one view portable at 8:30 AM. FINDINGS: CHEST: Lungs are hypoexpanded but clear of acute process. Heart size and pulmonary vascularity is normal. No gross bony abnormality seen. Brain: There is no acute intra-axial, extra-axial bleed, masses or midline shift. There is no acute infarction evolution. There is no edema. The montez to white matter differentiation is maintained normal. The lateral ventricles are symmetrical in size and configuration but enlarged. Bone windows reveal no calvarial abnormality. There is mild mucoperiosteal thickening right maxillary sinus. Rest of paranasal sinuses are clear. There is no scalp soft tissue abnormality. Cervical spine: There is mild straightening of cervical lordosis. The vertebral heights and alignment is normal. There is loss of C5-6 disc height with endplate changes and spondylosis noted. Rest of the disc heights are normal. The C1-C2 alignment and the craniovertebral junction is normal. There is no visible acute fracture, dislocation or subluxation seen. There is mild right facet joint arthropathy C2-3, C3-4 facet joint arthropathy. Mild narrowing of right C3-4 C4-5 neural foramina as noted from uncovertebral and facet joint arthropathy. The prevertebral and paravertebral soft tissues. The airway is widely patent visualized bilateral parotid, submandibular glands and thyroid lobes are symmetrical. No abnormal neck mass or lymphadenopathy seen. The lung apices are clear. CT/CT cervical spine wo IV con IMPRESSION: Hypoexpanded lungs without acute process. No acute intracranial process seen. No acute fracture or dislocation cervical spine. There are degenerative disc changes and facet arthropathy as described above. Electronically signed by: Adriel Tovar MD 07/14/2024 09:14 AM EST
--- NOTE | ~2024-07-14 | CT_ITS ---
EXAMINATION: CT ABDOMEN AND PELVIS WITHOUT CONTRAST CLINICAL INFORMATION: Abdominal pain. COMPARISON: CT dated March 29, 2015. TECHNIQUE: Multidetector volumetric imaging was performed from the superior aspect of the liver through the pubic symphysis. Sagittal and coronal reformatted images were obtained on the technologist's workstation. This CT examination was performed using dose optimization techniques as appropriate, variously including the following: *Automated exposure control *Adjustment of mA and/or kV according to patient size (this includes techniques or standardized protocols for targeted exams where dose is matched to indication/reason for exam; i.e. extremities or head) *Use of iterative reconstruction technique. Total dose: 1072 mGy centimeter FINDINGS: Inadequate evaluation of the intra-abdominal organs and vascular structures due to lack of IV contrast. Limited by patient's breathing motion artifact. LUNG BASES: Pulmonary patchy groundglass in the periphery of the lung bases. LIVER, GALLBLADDER, AND BILIARY TREE: Liver measures 18 cm. Subtle nodular surface of the liver. There is layering intraluminal hyperdensity in the gallbladder without pericholecystic fluid collection or gallbladder wall thickening. No intrahepatic or extrahepatic biliary ductal dilatation. PANCREAS: No peripancreatic fluid collection. No main pancreatic ductal dilatation. SPLEEN: 13 cm. ADRENAL GLANDS: No nodular lesions. KIDNEYS AND URETERS: No hydronephrosis or nephrolithiasis. Questionable parapelvic cystic lesions in the right kidney. BLADDER: Fluid-filled. GASTROINTESTINAL TRACT: Small amount of fluid within the extraperitoneal lower pelvis. Appendix is normal. Abundant stool within the large intestine. Segmental wall thickening with narrowed lumen involving the proximal transverse colon and the proximal to mid ascending colon. Patulous morphology of the left hemicolon. No pneumatosis intestinalis. No pneumoperitoneum. No intestinal obstruction pattern. ABDOMINAL WALL: Small fat-containing umbilical hernia and diastases abdominal rectus muscles in the periumbilical region. LYMPH NODES: Mild mesenteric edema pattern and prominent less than 1 cm mesenteric and retroperitoneal lymph nodes VASCULAR: Throughout the abdominal aorta wall and iliac arteries without aneurysm. Calcified plaques in the splenic artery. PELVIC VISCERA: No gross lesion in the adnexa. OSSEOUS STRUCTURES: Multilevel thoracolumbar spondylosis. No acute fracture or gross listhesis in the axial skeleton. No lytic or blastic lesions. CT/CT abdomen pelvis wo IV con IMPRESSION: Nonspecific small amount of fluid in the extraperitoneal extravesical lower pelvis. Focal areas of segmental wall thickening versus peristalsis, right hemicolon. Inflammatory versus infectious processes versus malignancy should be considered. Hepatosplenomegaly. Probable cholelithiasis. Fleischner guidelines were followed. Electronically signed by: Kartik Hendricks MD 07/14/2024 09:34 AM EST
--- NOTE | 2024-07-14 07:39 | ECG_ITS ---
Test Reason : CHEST PAIN Blood Pressure : */* mmHG Vent. Rate : 115 BPM Atrial Rate : 115 BPM P-R Int : 140 ms QRS Dur : 72 ms QT Int : 312 ms P-R-T Axes : 48 8 32 degrees QTcB Int : 431 ms Sinus tachycardia Nonspecific ST and T wave abnormality Abnormal ECG When compared with ECG of 16-MAY-2023 19:05, Vent. rate has increased BY 43 BPM Inferior infarct is now Present Nonspecific T wave abnormality now evident in Anterolateral leads Referred By: Chemo Mehta Electronically Signed By: MARY ZAMORA
--- NOTE | 2024-07-14 07:42 | ED.HEATRA ---
HPI - Head Injury General Chief complaint: Fall Stated complaint: FALL,HIT HEAD,DIZZY,CONFUSED CONVERSATION PER EMS Source: patient and EMS Mode of arrival: EMS History of Present Illness HPI Narrative: This is a 63 years old female patient with history of cognitive development delay, history of falls presented to the ED after a fall she states that she had head to the floor patient is very poor historian she states that she was discharged yesterday from [facility]. Denies any chest pain any fever any vomiting. Pt had anal biopsy yesterday at [facility] for ASCUS anal canal MD Complaint: head injury Onset (ago): day(s) (1) Arrival Conditions: C-spine immobilization present Mechanism of Injury: unsure Place: home Loss of Consciousness: no Location of injury: occipital Severity: moderate Radiation: none Other Injuries: none Related Data Home Medications ?Medication ?Instructions ?Recorded ?Confirmed acetaminophen 500 mg tablet 500 mg PO Q6H PRN Pain 01/31/21 07/14/24 bictegravir 50 mg-emtricitabine 1 tab PO DAILY 01/31/21 07/14/24 200 mg-tenofovir alafenam 25 mg tablet (Biktarvy) calcium 600 mg (as 1 tab PO BID 01/31/21 07/14/24 carbonate)-vitamin D3 10 mcg (400 unit) tablet (Calcium 600 + D(3)) folic acid 1 mg tablet 1 mg PO DAILY 01/31/21 07/14/24 sodium chloride 0.65 % nasal spray 1 spray intranasal BID 01/31/21 07/14/24 aerosol (Saline Nasal) albuterol sulfate 90 mcg/actuation 2 puff inhalation Q4H PRN Wheezing 03/23/21 07/14/24 aerosol inhaler simethicone 80 mg chewable tablet 80 mg PO TID 05/09/23 07/14/24 lactase 9,000 unit chewable tablet 18,000 unit PO QIDWMHS PRN EATING 05/16/23 07/14/24 (Lactaid Fast Act) DIARY sertraline 100 mg tablet 100 mg PO DAILY 05/16/23 07/14/24 wheat dextrin 3 gram/4 gram oral 1 packet PO BID 05/16/23 07/14/24 powder (Benefiber Sugar Free (dextrin)) atorvastatin 10 mg tablet 10 mg PO DAILY 03/11/24 07/14/24 trazodone 100 mg tablet 100 mg PO BEDTIME 03/11/24 07/14/24 fluoride (sodium) 1.1 % dental 1 appl PO DAILY 04/16/24 07/14/24 cream (Denta 5000 Plus) divalproex 500 mg tablet,extended 500 mg PO DAILY 05/14/24 07/14/24 release 24 hr chlorhexidine gluconate 0.12 % 15 ml PO BID 07/14/24 07/14/24 mouthwash cyanocobalamin (vitamin B-12) 50 50 mcg PO DAILY 07/14/24 07/14/24 mcg tablet (Vitamin B-12) dextran 70-hypromellose eye drops 1 drp ophthalmic (eye) QID 07/14/24 07/14/24 in a dropperette (Artificial Tears (PF) drops in a dropperette) diazepam 5 mg tablet (Valium) 5 mg PO Q8H PRN Anxiety 07/14/24 07/14/24 divalproex 500 mg tablet,delayed 1,000 mg PO BEDTIME 07/14/24 07/14/24 release docusate sodium 100 mg capsule 100 mg PO BID PRN Constipation 07/14/24 07/14/24 levothyroxine 75 mcg tablet 75 mcg PO DAILY@0600 07/14/24 07/14/24 loperamide 2 mg tablet 4 mg PO Q4H PRN Diarrhea 07/14/24 07/14/24 multivitamin with folic acid 400 1 tab PO DAILY 07/14/24 07/14/24 mcg tablet (High Potency Multivitamin) omeprazole 20 mg capsule,delayed 20 mg PO DAILY@0630 07/14/24 07/14/24 release oxycodone 5 mg tablet 5 mg PO Q6H PRN Pain 07/14/24 07/14/24 sennosides 8.6 mg-docusate sodium 1 tab PO BEDTIME 07/14/24 07/14/24 50 mg tablet (Stimulant Laxative Plus) sodium chloride 0.65 % nasal spray 1 spray intranasal BID 07/14/24 07/14/24 aerosol (Saline Nasal) Previous Rx's ?Medication ?Instructions ?Recorded quetiapine 200 mg tablet 200 mg PO TID 30 days #90 tabs 06/03/23 Allergies Allergy/AdvReac Type Severity Reaction Status Date / Time abacavir [ABACAVIR] Allergy Severe HIVES Verified 07/14/24 07:48 hydrochlorothiazide Allergy Severe HIVES Verified 07/14/24 07:48 [HYDROCHLOROTHIAZIDE] ibuprofen [From MOTRIN] Allergy Severe HIVES Verified 07/14/24 07:48 Penicillins [PENICILLINS] Allergy Severe HIVES Verified 07/14/24 07:48 tenofovir [From VIREAD] Allergy Severe HIVES Verified 07/14/24 07:48 tomato [TOMATO] Allergy Severe HIVES Verified 07/14/24 07:48 zidovudine [From RETROVIR] Allergy Severe HIVES Verified 07/14/24 07:48 lactose [Lactose] AdvReac Mild DIARRHEA Verified 07/14/24 07:48 disoproxail Allergy Mild Unknown Uncoded 07/14/24 07:48 Review of Systems Constitutional: Constitutional: Reports no additional constitutional complaints Cardiovascular: Cardiovascular: Reports no additional cardiovascular complaints Respiratory: Respiratory: Reports no additional respiratory complaints [facility] Past Medical History Attestation statement: The following information was validated with the patient. [facility] Narrative: Development delayed, HIV, PTSD, syphilis Source: nursing notes reviewed Medical History Positive serological reaction for syphilis Hypothyroidism Hx of acute pancreatitis Hx of acute renal failure History of ETOH abuse Hx of herpes genitalis History of diverticulosis Constipation History of intravenous drug abuse Developmental delay, mild COVID-19 vaccine series completed Depression PTSD (post-traumatic stress disorder) Hyperlipidemia Seasonal allergies Hx of hepatitis C HIV (human immunodeficiency virus infection) Nocturia Frequency of micturition Surgical History History of colonoscopy Family History Family History Mother Alzheimer disease Breast cancer HTN (hypertension) Paternal Aunt Breast cancer Social History Social History Household Members: Other Household Members Other:: [employer] Housing: Other Housing Other:: Snf Are you a primary hospice care consultant to a significant other at home: No Do you presently have visiting nurse or other home services: No Unable to assess alcohol history related to: Unknown Alcohol intake: never Patient Tobacco Use Status: Never used Tobacco Smoked in Last 30 Days: No e-Cigarette/Vaping Use: Never Used Second Hand Smoke Exposure: No Use of substances other than those prescribed or required for medical reasons: No Have you been hit, kicked, punched, or otherwise hurt by someone within the past year? If so, by whom?: No Do you feel safe in your current relationship?: Yes Advance Directives: No Advance Directives Information Provided: No Advance Directives on File: No Do you have a plan to hurt others: No Plan Recently lost weight without trying: No Nutrition Risks: No Nutritional Risk Patient : No : No service: No Sexual orientation: Decline to Answer Physical Exam Vital Signs: Vital Signs: Last Vital Signs Temp 99 F 07/14/24 12:54 Pulse 103 H 07/14/24 12:54 Resp 20 07/14/24 12:54 BP 92/54 L 07/14/24 12:54 Pulse Ox 97 07/14/24 12:54 O2 Del Method Room Air 07/14/24 12:54 BMI result Body Mass Index 31.0 Not acute distress C-collar is on Const: General: comfortable and no acute distress Nutritional Appearance: average body habitus Orientation/consciousness: patient oriented x3 HEENT: Head: Yes normal to inspection General nose exam: Normal external nose present Face and sinus: Yes normal facial exam Mouth: Normal oral and palatal mucosa present Neck: Other: C-spine is immobilized with a C-collar Chest: Chest palpation & inspection: normal inspection of the chest Resp: Effort & Inspection: normal respiratory effort Auscultation: clear to auscultation bilaterally Cardio: Jugular venous distension: no JVD Rate: regular rate Rhythm: regular rhythm GI: Inspection: Yes normal to inspection Palpation (GI): Soft to palpation, not firm and nontender Percussion: Yes normal to percussion Skin: General skin exam: no rashes or lesions noted and elasticity normal Trauma: no lacerations or abrasions Neuro: General: patient oriented x3 and no focal motor deficits Course Reevaluation(s) Reevaluation #1: improving pulse down from 115 to 103 ,lactic acid downtrending ,spoke with Dr Blanca Time: 13:42 Medications Administered Generic Name Dose Route Start Last Admin Trade Name Freq PRN Reason Stop Dose Admin Sodium Chloride 1,000 mls @ 500 mls/hr 07/14/24 09:00 07/14/24 12:56 Ns IVCONT Not Given .Q2H RENATO Discontinued Medications Generic Name Dose Route Start Last Admin Trade Name Lucia PRN Reason Stop Dose Admin Sodium Chloride 1,000 mls @ 999 mls/hr 07/14/24 08:00 07/14/24 09:05 Ns IVCONT 07/14/24 09:00 Infused .Q1H1M RENATO Infusion Cefepime HCl 2 gm in 50 mls @ 100 mls/hr 07/14/24 08:29 07/14/24 09:27 Maxipime IV 07/14/24 08:58 Infused ONCE ONE Infusion Sodium Chloride 1,000 mls @ 999 mls/hr 07/14/24 08:30 07/14/24 09:41 Ns IVCONT 07/14/24 09:30 Infused .Q1H1M RENATO Infusion Vancomycin HCl 1,250 mg/ 250 mls @ 166.667 mls/hr 07/14/24 08:59 07/14/24 11:42 Sodium Chloride IV 07/14/24 10:28 Infused ONCE ONE Infusion Acetaminophen 1,000 mg in 100 mls @ 400 mls/hr 07/14/24 09:03 07/14/24 09:27 Ofirmev IV 07/14/24 09:17 Infused ONCE ONE Infusion Sodium Chloride 2,535 mls @ 2,535 mls/hr 07/14/24 11:22 07/14/24 13:24 Ns 30 ml/kg infuse over 1 hr (2535 ml) 07/14/24 12:21 2,535 mls/hr IV Administration .Q1H STA Medical Decision Making Medical Decision Making [facility] Narrative: Patient presented to the emergency department with a chief complaint of fall we will obtain imaging of the head C-spine check labs as well Differential Diagnosis Differential Diagnoses: The differential diagnosis associated with the presentation includes Subdural hematoma/epidural hematoma/cervical spine fracture Admission/Observation Consideration of admission/observation: Escalation of care including admission/observation considered Consult Healthcare Provider Management of the patient was discussed with: Hospitalist Lab Data MDM Lab Attestation statement: I reviewed the patient's lab results. 07/14/24 07:55 07/14/24 07:55 Labs: Lab Results 07/14/24 07/14/24 07/14/24 Range/Units 07:55 08:03 08:20 WBC 15.7 H (4.8-10.8) X10*3/uL RBC 3.28 L (4.20-5.50) X10*6/uL Hgb 13.5 (12.0-16.0) g/dl Hct 38.6 (37.0-47.0) % MCV 117.7 H (80.0-98.0) fL MCH 41.2 H (27.0-33.0) pg MCHC 35.0 (31.0-35.0) g/dl RDW 13.2 (11.0-16.0) % Plt Count 49 L (160-400) X10*3/uL MPV 9.2 L (9.4-12.3) fL Immature Gran % (Auto) 1.4 H (0.0-0.4) % Neut % (Auto) 83.2 H (45-73) % Lymph % (Auto) 4.2 L (20-40) % Miller % (Auto) 11.0 (2-11) % Eos % (Auto) 0.0 (0-4) % Baso % (Auto) 0.2 (0-2) % Lymph # (Auto) 0.7 L (1.2-4.9) X10*3/uL Miller # (Auto) 1.7 H (0.1-1.2) X10*3/uL Eos # (Auto) 0.0 (0.0-0.4) X10*3/uL Baso # (Auto) 0.0 (0.0-0.2) X10*3/uL Abs Immat Gran (auto) 0.22 H (0.00-0.03) X10*3/uL Absolute Neuts (auto) 13.1 H (2.0-8.3) x10*3/uL Absolute Nucleated RBC 0.000 (0.0-0.012) X10*3/uL Nucleated RBC % (auto) 0.0 (0.0-0.2) /100WBC Sodium 144 (135-145) mmol/L Potassium 3.4 (3.3-5.1) mmol/L Chloride 110 H (96-108) mmol/L Carbon Dioxide 22 (22-29) mmol/L Anion Gap 15 (12-20) BUN 31 H (9-16) mg/dL Creatinine 1.87 H (0.5-1.4) mg/dL Estim Creat Clear Calc 33.4 Estimated GFR 27 Random Glucose 147 H (60-115) mg/dL Lactic Acid 5.5 H* (0.5-2.0) mmol/L Lactic Acid F/U @ 2Hr (0.5-2.0) mmol/L Calcium 9.4 D (8.4-10.2) mg/dL Total Bilirubin 1.6 H (0.0-1.0) mg/dL AST 34 H (5-31) U/L ALT 16 (0-31) U/L Alkaline Phosphatase 34 L (39-117) U/L Lactate Dehydrogenase 250 H (122-220) U/L Total Creatine Kinase 290 H (26-140) U/L Troponin I High Sens 7.7 (<3.5-17.0) ng/L C-Reactive Protein 11.68 H (< or = 0.50) mg/dL Total Protein 6.9 (6.5-8.0) g/dL Albumin 4.0 (3.5-5.0) g/dL Influenza Type A (PCR) NEGATIVE (Negative) Influenza Type B (PCR) NEGATIVE (Negative) RSV RNA Qual (PCR) NEGATIVE (Negative) SARS-CoV-2 RNA (RT-PCR) POSITIVE A (Negative) 07/14/24 Range/Units 11:10 WBC (4.8-10.8) X10*3/uL RBC (4.20-5.50) X10*6/uL Hgb (12.0-16.0) g/dl Hct (37.0-47.0) % MCV (80.0-98.0) fL MCH (27.0-33.0) pg MCHC (31.0-35.0) g/dl RDW (11.0-16.0) % Plt Count (160-400) X10*3/uL MPV (9.4-12.3) fL Immature Gran % (Auto) (0.0-0.4) % Neut % (Auto) (45-73) % Lymph % (Auto) (20-40) % Miller % (Auto) (2-11) % Eos % (Auto) (0-4) % Baso % (Auto) (0-2) % Lymph # (Auto) (1.2-4.9) X10*3/uL Miller # (Auto) (0.1-1.2) X10*3/uL Eos # (Auto) (0.0-0.4) X10*3/uL Baso # (Auto) (0.0-0.2) X10*3/uL Abs Immat Gran (auto) (0.00-0.03) X10*3/uL Absolute Neuts (auto) (2.0-8.3) x10*3/uL Absolute Nucleated RBC (0.0-0.012) X10*3/uL Nucleated RBC % (auto) (0.0-0.2) /100WBC Sodium (135-145) mmol/L Potassium (3.3-5.1) mmol/L Chloride (96-108) mmol/L Carbon Dioxide (22-29) mmol/L Anion Gap (12-20) BUN (9-16) mg/dL Creatinine (0.5-1.4) mg/dL Estim Creat Clear Calc Estimated GFR Random Glucose (60-115) mg/dL Lactic Acid (0.5-2.0) mmol/L Lactic Acid F/U @ 2Hr 4.2 H* (0.5-2.0) mmol/L Calcium (8.4-10.2) mg/dL Total Bilirubin (0.0-1.0) mg/dL AST (5-31) U/L ALT (0-31) U/L Alkaline Phosphatase (39-117) U/L Lactate Dehydrogenase (122-220) U/L Total Creatine Kinase (26-140) U/L Troponin I High Sens (<3.5-17.0) ng/L C-Reactive Protein (< or = 0.50) mg/dL Total Protein (6.5-8.0) g/dL Albumin (3.5-5.0) g/dL Influenza Type A (PCR) (Negative) Influenza Type B (PCR) (Negative) RSV RNA Qual (PCR) (Negative) SARS-CoV-2 RNA (RT-PCR) (Negative) Independent Interpretation I performed an independent interpretation of an: CT Scan Radiology Impression Discussion of test interpretation with radiology: I have reviewed the radiologist's reading. Independent Historian Clinical information obtained from an independent historian. History obtained from or confirmed by: Other director of [facility] External Record Review External record reviewed: Inpatient record and Outpatient record Chronic Conditions hiv Critical Care Time Critical Care Time Critical Care Time: Yes Total Critical Care Time: 60 Attestation: lactic acidosis,iv fluids Discharge Plan Discharge Clinical Impression: ALYSSA (acute kidney injury), Acidosis, lactic, COVID-19 Patient Disposition: Admitted As Inpatient
[2024-07-14] MEDS: 0.9 % Sodium Chloride 1,000 ML 999 ML IVCONT ×2 (07:57→08:51)
[2024-07-14 08:01] LABS: Basophils Percent Auto 0.2 % (0-2); Hematocrit 38.6 % (37.0-47.0); Hemoglobin 13.5 g/dl (12.0-16.0); Imm Gran Abs Auto 0.22 X10*3/uL (0.00-0.03); Imm Gran Pct Auto 1.4 % (0.0-0.4); Lymphocytes Absolute Auto 0.7 X10*3/uL (1.2-4.9); Lymphocytes Percent Auto 4.2 % (20-40); Mean Corpuscular Hemoglobin 41.2 pg (27.0-33.0); Mean Platelet Volume 9.2 fL (9.4-12.3); Monocytes Absolute Auto 1.7 X10*3/uL (0.1-1.2); Neutrophils Absolute Auto 13.1 x10*3/uL (2.0-8.3); Neutrophils Percent Auto 83.2 % (45-73); Red Blood Count 3.28 X10*6/uL (4.20-5.50); Red Cell Distribution Width 13.2 % (11.0-16.0); White Blood Count 15.7 X10*3/uL (4.8-10.8)
[2024-07-14 08:02] LABS: Mean Corpuscular Volume 117.7 fL (80.0-98.0); Platelet Count 49 X10*3/uL (160-400)
[2024-07-14 08:17] LABS: Alanine Aminotransferase 16 U/L (0-31); Alkaline Phosphatase 34 U/L (39-117); Anion Gap 15 (12-20); Aspartate Amino Transferase 34 U/L (5-31); Bilirubin Total 1.6 mg/dL (0.0-1.0); Blood Urea Nitrogen 31 mg/dL (9-16); Calcium 9.4 mg/dL (8.4-10.2); Carbon Dioxide 22 mmol/L (22-29); Chloride 110 mmol/L (96-108); Creatinine Clr Calc Pharmacy 33.4; Estimated Glomerular Filt Rate 27; Glucose Random 147 mg/dL (60-115); Potassium 3.4 mmol/L (3.3-5.1); Sodium 144 mmol/L (135-145); Total Protein 6.9 g/dL (6.5-8.0)
--- NOTE | 2024-07-14 08:19 | PC.NURSE ---
Patient VÍCTOR from skilled nursing d/t unwitnessed fall from bed. Pt reports fell from bed and hit back of head on floor. Pt reports feeling dizzy prior to fall. Pt reports 5/10 neck pain and headache. C-collar placed upon arrival to unit. Alert and oriented, developmental delay, baseline for pt. HR 116 and temp 99.1, Dr. Mehta made aware. Pt reports having rectal surgery yesterday at [facility], made aware. Bruising noted all over body. 20g IV placed right AC. Labs obtained as ordered.
[2024-07-14 08:25] LABS: Troponin-I High Sensitivity 7.7 ng/L (<3.5-17.0)
[2024-07-14 08:26] LABS: Lactic Acid 5.5 mmol/L (0.5-2.0)
[2024-07-14] MEDS: cefEPime HCl/D5W 2 GM/50 ML PIGGYBACK IV (08:48)
[2024-07-14 09:04] LABS: Influenza A PCR NEGATIVE (Negative); Influenza B PCR NEGATIVE (Negative); Resp Syncy Virus RNA Qual PCR NEGATIVE (Negative); SARS COV2 PCR INHOUSE POSITIVE (Negative)
[2024-07-14] MEDS: Acetaminophen 1,000 MG/100 ML PIGGYBACK 400 MG IV (09:10)
[2024-07-14] MEDS: vancomycin HCL 1,250 MG in 0.9 % Sodium Chloride 250 ML 166.67 MG IV (09:28)
[2024-07-14] MEDS: 0.9 % Sodium Chloride 1,000 ML 500 ML IVCONT (09:30)
[2024-07-14 10:08] LABS: Reflex Lactate? Lactic Acid Added
--- NOTE | 2024-07-14 11:10 | PC.NURSE ---
Patient a redraw for repeat lactic acid, patient also refusing certain draw locations
--- NOTE | 2024-07-14 11:30 | PM.IMHP ---
History of Present Illness Date of Service: 07/14/24 Chief Complaint: Fall, Covid A 63 years old lady with PMH of HIV, syphilis, cirrhosis, hepatitis-C, PTSD, and unspecified psychosis with reported developmental delay among others who resides at detention presenting after sustaining a fall. The patient very poor historian and it seems like she was at [facility] yesterday for biopsy for ASCUS anal canal. No chest pain, palpitations, SOB, nausea, vomiting, diarrhea or urinary symptoms. In ED found to have Leukocytosis, Elevated Lactic acid and kidney function with evidence of Covid infection. CT Head, neck and abdomen reporting no acute trauma related injuries or acute findings but Nonspecific small amount of fluid in the extraperitoneal extravesical lower pelvis.Focal areas of segmental wall thickening versus peristalsis, right hemicolon. Inflammatory versus infectious processes versus malignancy should be considered. Will be admitted for further evaluation and management. Review of Systems Review of Systems: No fever, chills but has eneralized weakness No chest pain, palpitation No shortness of breath or coughing No abdominal pain, nausea or vomiting No urinary symptoms No rash PMFSH Medical History Positive serological reaction for syphilis Hypothyroidism Hx of acute pancreatitis Hx of acute renal failure History of ETOH abuse Hx of herpes genitalis History of diverticulosis Constipation History of intravenous drug abuse Developmental delay, mild COVID-19 vaccine series completed Depression PTSD (post-traumatic stress disorder) Hyperlipidemia Seasonal allergies Hx of hepatitis C HIV (human immunodeficiency virus infection) Nocturia Frequency of micturition Family History Mother Alzheimer disease Breast cancer HTN (hypertension) Paternal Aunt Breast cancer Surgical History History of colonoscopy Social History Household Members: Other Household Members Other:: [employer] Housing: Other Housing Other:: Alf Are you a primary assisted living care manager to a significant other at home: No Do you presently have visiting nurse or other home services: No Unable to assess alcohol history related to: Unknown Alcohol intake: never Patient Tobacco Use Status: Never used Tobacco Smoked in Last 30 Days: No e-Cigarette/Vaping Use: Never Used Second Hand Smoke Exposure: No Use of substances other than those prescribed or required for medical reasons: No Have you been hit, kicked, punched, or otherwise hurt by someone within the past year? If so, by whom?: No Do you feel safe in your current relationship?: Yes Advance Directives: No Advance Directives Information Provided: No Advance Directives on File: No Do you have a plan to hurt others: No Plan Recently lost weight without trying: No Nutrition Risks: No Nutritional Risk Patient : No : No service: No Sexual orientation: Decline to Answer Meds Allergies Allergy/AdvReac Type Severity Reaction Status Date / Time abacavir [ABACAVIR] Allergy Severe HIVES Verified 07/14/24 07:48 hydrochlorothiazide Allergy Severe HIVES Verified 07/14/24 07:48 [HYDROCHLOROTHIAZIDE] ibuprofen [From MOTRIN] Allergy Severe HIVES Verified 07/14/24 07:48 Penicillins [PENICILLINS] Allergy Severe HIVES Verified 07/14/24 07:48 tenofovir [From VIREAD] Allergy Severe HIVES Verified 07/14/24 07:48 tomato [TOMATO] Allergy Severe HIVES Verified 07/14/24 07:48 zidovudine [From RETROVIR] Allergy Severe HIVES Verified 07/14/24 07:48 lactose [Lactose] AdvReac Mild DIARRHEA Verified 07/14/24 07:48 disoproxail Allergy Mild Unknown Uncoded 07/14/24 07:48 Active Medications: Current Medications Sodium Chloride (Ns) 1,000 mls @ 500 mls/hr IVCONT .Q2H RENATO Last Admin: 07/14/24 09:30 Dose: 500 mls/hr Sodium Chloride (Ns) 2,535 mls @ 2,535 mls/hr 30 ml/kg infuse over 1 hr (2535 ml) IV .Q1H STA Stop: 07/14/24 12:21 Home Medications ?Medication ?Instructions ?Recorded ?Confirmed ?Last Taken ?Type acetaminophen 500 mg tablet 500 mg PO Q6H PRN Pain 01/31/21 07/14/24 Unknown History bictegravir 50 mg-emtricitabine 1 tab PO DAILY 01/31/21 07/14/24 02/07/21 07:00 History 200 mg-tenofovir alafenam 25 mg tablet (Biktarvy) calcium 600 mg (as 1 tab PO BID 01/31/21 07/14/24 Unknown History carbonate)-vitamin D3 10 mcg (400 unit) tablet (Calcium 600 + D(3)) folic acid 1 mg tablet 1 mg PO DAILY 01/31/21 07/14/24 Unknown History sodium chloride 0.65 % nasal spray 1 spray intranasal BID 01/31/21 07/14/24 Unknown History aerosol (Saline Nasal) albuterol sulfate 90 mcg/actuation 2 puff inhalation Q4H PRN Wheezing 03/23/21 07/14/24 Unknown History aerosol inhaler simethicone 80 mg chewable tablet 80 mg PO TID 05/09/23 07/14/24 Unknown History hydrocortisone 1 % topical cream 1 appl topical BID PRN Rash 05/16/23 07/14/24 Unknown History lactase 9,000 unit chewable tablet 18,000 unit PO QIDWMHS PRN EATING 05/16/23 07/14/24 Unknown History (Lactaid Fast Act) DIARY sertraline 100 mg tablet 100 mg PO DAILY 05/16/23 07/14/24 Unknown History wheat dextrin 3 gram/4 gram oral 1 packet PO BID 05/16/23 07/14/24 Unknown History powder (Benefiber Sugar Free (dextrin)) atorvastatin 10 mg tablet 10 mg PO DAILY 03/11/24 07/14/24 Unknown History trazodone 100 mg tablet 100 mg PO BEDTIME 03/11/24 07/14/24 Unknown History fluoride (sodium) 1.1 % dental 1 appl PO DAILY 04/16/24 07/14/24 Unknown History cream (Denta 5000 Plus) divalproex 500 mg tablet,extended 500 mg PO DAILY 05/14/24 07/14/24 Unknown History release 24 hr chlorhexidine gluconate 0.12 % 15 ml PO BID 07/14/24 07/14/24 Unknown History mouthwash cyanocobalamin (vitamin B-12) 50 50 mcg PO DAILY 07/14/24 07/14/24 Unknown History mcg tablet (Vitamin B-12) dextran 70-hypromellose eye drops 1 drp ophthalmic (eye) QID 07/14/24 07/14/24 Unknown History in a dropperette (Artificial Tears (PF) drops in a dropperette) diazepam 5 mg tablet (Valium) 5 mg PO Q8H PRN Anxiety 07/14/24 07/14/24 Unknown History divalproex 500 mg tablet,delayed 1,000 mg PO BEDTIME 07/14/24 07/14/24 Unknown History release docusate sodium 100 mg capsule 100 mg PO BID PRN Constipation 07/14/24 07/14/24 Unknown History levothyroxine 75 mcg tablet 75 mcg PO DAILY@0600 07/14/24 07/14/24 Unknown History loperamide 2 mg tablet 4 mg PO Q4H PRN Diarrhea 07/14/24 07/14/24 Unknown History multivitamin with folic acid 400 1 tab PO DAILY 07/14/24 07/14/24 Unknown History mcg tablet (High Potency Multivitamin) omeprazole 20 mg capsule,delayed 20 mg PO DAILY@0630 07/14/24 07/14/24 Unknown History release oxycodone 5 mg tablet 5 mg PO Q6H PRN Pain 07/14/24 07/14/24 Unknown History sennosides 8.6 mg-docusate sodium 1 tab PO BEDTIME 07/14/24 07/14/24 Unknown History 50 mg tablet (Stimulant Laxative Plus) sodium chloride 0.65 % nasal spray 1 spray intranasal BID 07/14/24 07/14/24 Unknown History aerosol (Saline Nasal) Physical Exam Vital Signs and Narrative: Vital Signs: Last Vital Signs Temp 98.7 F 07/14/24 10:18 Pulse 113 H 07/14/24 10:18 Resp 20 07/14/24 10:18 BP 90/48 L 07/14/24 10:18 Pulse Ox 94 07/14/24 10:18 O2 Del Method Room Air 07/14/24 10:18 BMI result Body Mass Index 31.0 Const: Other: Constitutional : interactive, not in distress Cardiovascular : no JVP, no lower extremity edema Respiratory : bilateral chest movement, not in resp distress Gastrointestinal: soft, lax, Non tender Skin : Warm, Dry Neurological : Alert & oriented to self only otherwise confused , No focal deficit Results Labs 07/14/24 07:55 07/14/24 07:55 Labs: Laboratory Results - last 24 hr 07/14/24 07/14/24 07/14/24 07:55 08:03 08:20 MCV 117.7 H MCH 41.2 H MCHC 35.0 RDW 13.2 Plt Count 49 L MPV 9.2 L Immature Gran % (Auto) 1.4 H Neut % (Auto) 83.2 H Lymph % (Auto) 4.2 L Gonzales % (Auto) 11.0 Eos % (Auto) 0.0 Baso % (Auto) 0.2 Lymph # (Auto) 0.7 L Gonzales # (Auto) 1.7 H Eos # (Auto) 0.0 Baso # (Auto) 0.0 Abs Immat Gran (auto) 0.22 H Absolute Neuts (auto) 13.1 H Absolute Nucleated RBC 0.000 Nucleated RBC % (auto) 0.0 Anion Gap 15 Estim Creat Clear Calc 33.4 Estimated GFR 27 Random Glucose 147 H Lactic Acid 5.5 H* Calcium 9.4 D Total Bilirubin 1.6 H AST 34 H ALT 16 Alkaline Phosphatase 34 L Troponin I High Sens 7.7 Total Protein 6.9 Albumin 4.0 Influenza Type A (PCR) NEGATIVE Influenza Type B (PCR) NEGATIVE RSV RNA Qual (PCR) NEGATIVE SARS-CoV-2 RNA (RT-PCR) POSITIVE A Imaging Radiologist's Impressions: Impressions Chest X-Ray 07/14/24 07:39 IMPRESSION: Hypoexpanded lungs without acute process. No acute intracranial process seen. No acute fracture or dislocation cervical spine. There are degenerative disc changes and facet arthropathy as described above. Electronically signed by: Adriel Tovar MD 07/14/2024 09:14 AM EST RP Head CT 07/14/24 07:40 IMPRESSION: Hypoexpanded lungs without acute process. No acute intracranial process seen. No acute fracture or dislocation cervical spine. There are degenerative disc changes and facet arthropathy as described above. Electronically signed by: Adriel Tovar MD 07/14/2024 09:14 AM EST RP Cervical Spine CT 07/14/24 08:22 IMPRESSION: Hypoexpanded lungs without acute process. No acute intracranial process seen. No acute fracture or dislocation cervical spine. There are degenerative disc changes and facet arthropathy as described above. Electronically signed by: Adriel Tovar MD 07/14/2024 09:14 AM EST RP Abdomen/Pelvis CT 07/14/24 08:30 IMPRESSION: Nonspecific small amount of fluid in the extraperitoneal extravesical lower pelvis. Focal areas of segmental wall thickening versus peristalsis, right hemicolon. Inflammatory versus infectious processes versus malignancy should be considered. Hepatosplenomegaly. Probable cholelithiasis. Fleischner guidelines were followed. Electronically signed by: Kartik Hendricks MD 07/14/2024 09:34 AM [facility] Assessment and Plan (1) COVID-19: Status: Acute (2) Acidosis, lactic: Status: Acute (3) ALYSSA (acute kidney injury): Status: Acute (4) SIRS (systemic inflammatory response syndrome): Status: Acute Plan A 63 years old lady with PMH of HIV, syphilis, cirrhosis, hepatitis-C, PTSD, and unspecified psychosis with reported developmental delay among others who resides at detention presenting after sustaining a fall. Fall mechanical in nature with reported weakness Likely related to acute Covid infection PT eval Covid19 infection , acute no hypoxia supportive therapy SIRS with acute lactic acidosis likely related to Covid but still could be secondary to bacterial infection and severe sepsis blood cultures sent 30 cc \ kg IVF bolus for now Check UA surgical evaluation for abnormal CT and abd pain follow LA Hypotension related to covid infection, give bolus and monitor ALYSSA on CKD3 Likely from dehydration Check CK IVF for now follow I\O and BMP DVT PPx Heparin The patient will need 2 overnight hospital stay for SIRS, Covid, fall and weakness pending cultures and correcting of Lactic acidosis Quality Stroke Does the patient have a stroke diagnosis?: No VTE Prior VTE?: No VTE Risk Level:: Medical - moderate - high VTE Device Contraindication: Treatment Not Indicated VTE Drug Contraindication: N/A - Med Ordered
[2024-07-14 11:36] LABS: ~Lactic Acid-LAB USE ONLY 4.2 mmol/L (0.5-2.0)
--- NOTE | 2024-07-14 13:12 | PHA.MEDREC ---
Addendum entered by Nando Waters RPh 07/14/24 13:25: Reviewed by [facility] Original Note: Pharmacy Consult ? Medication Reconciliation Pharmacy has completed the medication reconciliation. Utilized the list from [facility] ([phone]) to confirm med list.
[2024-07-14 13:15] LABS: Reflex Lactate? 2 Y
[2024-07-14 13:37] LABS: C Reactive Protein 11.68 mg/dL (< or = 0.50); Lactate Dehydrogenase 250 U/L (122-220)
[2024-07-14] MEDS: Heparin Sodium,Porcine 5,000 UNIT/ML VIAL 5000 UNIT SUBCUT ×2 (13:58→23:51)
[2024-07-14] MEDS: cefTRIAXone sodium 1 GM VIAL IVPUSH (13:59)
[2024-07-14 14:18] LABS: ~Lactic Acid-LAB USE ONLY 4.7 mmol/L (0.5-2.0)
[2024-07-14 14:34] LABS: Appearance Urine Cloudy; Color Urine Dark Yellow; Glucose Urine UA Negative (Negative); Leukocyte Esterase Urine Large (3+) (Negative); Nitrite Urine Positive (Negative); UMIC TRIGGER UACC YES; Urine Blood Moderate (2+) (Negative); Urine Ketones Trace mg/dL (Negative); Urine Protein 30 (1+) mg/dL (Neg-Trace)
--- NOTE | 2024-07-14 14:39 | PC.NURSE ---
MD Guerrero made aware pt received 3L of 0.9%NS thus far at 1256 along with BP of 92/54 HR 103 and lactic acid of 4.2. Clarified with MD which order of fluids to give pt, verified to give order to give 2535L of 0.9% NS and d/c order for 1L.
[2024-07-14 14:47] LABS: Bacteria Urine 4+ (None Seen); Hyaline Casts Urine 0-2 /LPF (0-2); Squamous Epithelial Cell Urine 0-2 /HPF (0-2); UACC Culture Trigger YES; WBC Urine 21-50 /HPF (0-5)
--- NOTE | 2024-07-14 15:45 | MHC.EDTECH ---
pt clean dried and repositioned
[2024-07-14] MEDS: QUEtiapine Fumarate 200 MG TABLET PO ×2 (16:13→21:12)
[2024-07-14] MEDS: Simethicone 80 MG TAB.CHEW PO ×2 (16:13→21:11)
[2024-07-14] MEDS: Acetaminophen 325 MG TABLET 650 MG PO (18:34)
[2024-07-14 18:37] LABS: Cancel Lactic Acid Canceled
--- NOTE | 2024-07-14 18:49 | PC.NURSE ---
MD Guerrero aware temp 101.6, Tylenol given per MAR. Repeat lactic to drawn.
[2024-07-14 20:17] LABS: Lactic Acid 3.8 mmol/L (0.5-2.0)
[2024-07-14] MEDS: Chlorhexidine Gluc Oral Rinse 15 ML MOUTHWASH BUCCAL (21:11)
[2024-07-14] MEDS: Divalproex Sodium 500 MG TABLET.DR 1000 MG PO (21:11)
[2024-07-14] MEDS: Sennosides/Docusate Sodium TABLET 1 TAB PO (21:11)
[2024-07-14] MEDS: traZODone HCL 100 MG TABLET PO (21:11)
[2024-07-14 21:49] LABS: Reflex Lactate? Lactic Acid Added
[2024-07-14 21:53] LABS: Cancel Lactic Acid Canceled
[2024-07-14 22:46] LABS: Alanine Aminotransferase 11 U/L (0-31); Albumin Level 2.7 g/dL (3.5-5.0); Alkaline Phosphatase 20 U/L (39-117); Anion Gap 9 (12-20); Aspartate Amino Transferase 26 U/L (5-31); Bilirubin Total 0.6 mg/dL (0.0-1.0); Blood Urea Nitrogen 19 mg/dL (9-16); Calcium 7.2 mg/dL (8.4-10.2); Carbon Dioxide 16 mmol/L (22-29); Chloride 122 mmol/L (96-108); Creatinine Clr Calc Pharmacy 60.2; Estimated Glomerular Filt Rate 54; Glucose Random 142 mg/dL (60-115); Hematocrit 28.6 % (37.0-47.0); Hemoglobin 10.1 g/dl (12.0-16.0); Mean Corpuscular HGB Conc 35.3 g/dl (31.0-35.0); Mean Corpuscular Hemoglobin 41.2 pg (27.0-33.0); Red Blood Count 2.45 X10*6/uL (4.20-5.50); Red Cell Distribution Width 13.5 % (11.0-16.0); Sodium 144 mmol/L (135-145); Total Protein 4.8 g/dL (6.5-8.0); White Blood Count 7.7 X10*3/uL (4.8-10.8)
[2024-07-14 22:48] LABS: Mean Corpuscular Volume 116.7 fL (80.0-98.0); Platelet Count 31 X10*3/uL (160-400)
[2024-07-14 23:16] LABS: Band Neutrophils Percent 6 % (3-5); Basophils Abs Manual 0.1 X10*3/uL (0.0-0.2); Basophils Percent Manual 1 % (0-2); Lymphocytes Absolute Manual 1.1 X10*3/uL (1.2-4.9); Lymphocytes Percent Manual 14 % (20-40); Metamyelocytes Absolute 0.2 X10*3/uL; Metamyelocytes Percent 2 %; Monocytes Absolute Manual 0.2 X10*3/uL (0.1-1.2); Monocytes Percent Manual 3 % (2-11); Myelocytes Absolute 0.2 X10*/uL; Myelocytes Percent 2 %; Neutrophils Percent Manual 72 % (45-73); RBC Morphology NOTED
[2024-07-14 23:18] LABS: Basophilic Stippling 1+ (0-2) /OIF; Dohle Bodies PRESENT; Schistocytes 1+ (0-2) /OIF; Tear Drop Cells 1+ (0-2) /OIF; Toxic Vacuolation PRESENT
[2024-07-14 23:21] LABS: Macrocytosis 1+ (5-14) /OIF; Platelet Estimate DECREASED (NORMAL); Platelet Morphology Comment NORMAL
--- NOTE | 2024-07-14 23:30 | PC.NURSE ---
Notified provider of PT recent lab results.
[2024-07-14] MEDS: Potassium Chloride Packet 20 MEQ PACKET 40 MEQ PO (23:50)
[2024-07-15] VITALS (37 sets, daily range): BP systolic 66–146; BP diastolic 27–65; PULSE 60–108; RESP 3–29; TEMP 36.6–38.7; O2SAT 92–99; BMI 32.4
[2024-07-15] MEDS: Albumin Human 25 % 100 ML 133.33 ML IV (00:34)
--- NOTE | 2024-07-15 00:40 | PC.NURSE ---
t/w was doing vitals pt prior to having pt going up to med-tele. and pressures in the 80s/40s. Pt reporting to be tired, and having difficulting changing positions. notified hospitalist. New orders placed and medications administered.
[2024-07-15] MEDS: Norepinephrine Bitartrate/D5W 8 MG/250 ML PLAST..BAG 8.27 MG IVCONT (00:54)
--- NOTE | 2024-07-15 01:02 | PC.NURSE ---
ED provider, Dr. Trevizo ok'd increasing dose to 0.1kg
[2024-07-15] MEDS: 0.9 % Sodium Chloride Flush 3 ML SYRINGE IVFLUSH ×2 (01:09→10:49)
--- NOTE | 2024-07-15 01:19 | PC.NURSE ---
report given to NAOMI hernandez in ICU
--- NOTE | 2024-07-15 01:48 | PC.NURSE ---
ANEUDY called wastewater supervisor, Jessy omalley provide status update.
--- NOTE | 2024-07-15 01:53 | PM.EVENT ---
Documented by User: Jillian Galeano NP 07/15/24 04:46 Event Note Date of Service: 07/15/24 Event Note: Patient transferred to ICU for level of care secondary to hypotension. She was admitted for treatment of SIRS with acute lactic acidosis d/t Covid19 infection vs bacterial infection and for further evaluation of abnormal CT and abd pain.? Of Note, the pt had a biopsy yesterday at [facility] for ASCUS of the anal canal. Initially treated with IVF, empiric antibiotics, she remained hypotensive despite colloid and crystalloid resuscitation and was started on Levophed.? On arrival to the ICU, the patient is awake, alert, oriented x 3. Reports being cold and tired. No further complaints. Systolic blood pressure in 100?s, HR up to 100s on Levophed. Pt on room air, Lung sounds clear; normal respiratory effort.? Time Spent With Patient Time: Total time managing care of this patient today ____ minutes. Documented by User: Chris Rodriguez MD 07/15/24 11:59 Event Note Date of Service: 07/15/24
[2024-07-15 03:26] LABS: Reflex Lactate? Lactic Acid Added
--- NOTE | 2024-07-15 05:26 | PM.EVENT ---
Event Note Date of Service: 07/15/24 Event Note: 12:26 AM - BP dropped to 82/44, MAP 56, HR 93. Albumin per sepsis protocol ordered, pt already received over 5L of fluids since admission to ED. Lactic acid decreasing but still elevated. 12:37 AM - BP 70/35, MAP 48, HR 92 12:43 AM - BP 69/28, MAP 42 ICU team contacted. Patient started on Levophed and transferred to ICU for further evaluation and treatment. Time Spent With Patient Time: Total time managing care of this patient today ____ minutes.
[2024-07-15 05:39] LABS: Hemoglobin 10.6 g/dl (12.0-16.0); Mean Corpuscular HGB Conc 34.2 g/dl (31.0-35.0); Mean Corpuscular Hemoglobin 40.6 pg (27.0-33.0); Mean Platelet Volume 9.4 fL (9.4-12.3); Red Blood Count 2.61 X10*6/uL (4.20-5.50); Red Cell Distribution Width 13.5 % (11.0-16.0); WBC ABN SCTR FOR CBC 1
[2024-07-15 05:41] LABS: Mean Corpuscular Volume 118.8 fL (80.0-98.0); Platelet Count 31 X10*3/uL (160-400)
[2024-07-15 05:42] LABS: White Blood Count 10.5 X10*3/uL (4.8-10.8)
[2024-07-15 05:48] LABS: ~Lactic Acid-LAB USE ONLY 1.6 mmol/L (0.5-2.0)
[2024-07-15 05:57] LABS: Alanine Aminotransferase 10 U/L (0-31); Albumin Level 3.2 g/dL (3.5-5.0); Alkaline Phosphatase 29 U/L (39-117); Anion Gap 14 (12-20); Aspartate Amino Transferase 26 U/L (5-31); Blood Urea Nitrogen 17 mg/dL (9-16); Calcium 7.7 mg/dL (8.4-10.2); Carbon Dioxide 17 mmol/L (22-29); Chloride 122 mmol/L (96-108); Creatinine Clr Calc Pharmacy 62.1; Estimated Glomerular Filt Rate 54; Glucose Random 154 mg/dL (60-115); Potassium 3.8 mmol/L (3.3-5.1); Sodium 149 mmol/L (135-145); Total Protein 5.5 g/dL (6.5-8.0)
[2024-07-15 06:05] LABS: Band Neutrophils Percent 26 % (3-5); Lymphocytes Absolute Manual 1.6 X10*3/uL (1.2-4.9); Lymphocytes Percent Manual 15 % (20-40); Metamyelocytes Absolute 0.1 X10*3/uL; Metamyelocytes Percent 1 %; Monocytes Absolute Manual 0.5 X10*3/uL (0.1-1.2); Monocytes Percent Manual 5 % (2-11); Neutrophils Absolute Manual 8.3 X10*3/uL (2.0-8.3); Neutrophils Percent Manual 53 % (45-73)
[2024-07-15 06:08] LABS: Macrocytosis 3+ (>30) /OIF; Ovalocytes 1+ (5-14) /OIF; Platelet Estimate DECREASED (NORMAL); Platelet Morphology Comment NORMAL; RBC Morphology NOTED; Tear Drop Cells 1+ (0-2) /OIF; Toxic Vacuolation PRESENT
[2024-07-15] MEDS: Bictegrav/Emtricit/Tenofov Ala TABLET 1 TAB PO (10:07)
[2024-07-15] MEDS: Calcium Gluconate/NaCl,Iso-Osm 1 GM/50 ML PLAST..BAG IV (10:07)
[2024-07-15] MEDS: Sertraline HCL 100 MG TABLET PO (10:07)
[2024-07-15] MEDS: Multivitamin TABLET 1 TAB PO (10:07)
[2024-07-15] MEDS: Cyanocobalamin (Vitamin B-12) 100 MCG TABLET 50 MCG PO (10:09)
[2024-07-15] MEDS: QUEtiapine Fumarate 200 MG TABLET PO ×3 (10:09→21:30)
[2024-07-15] MEDS: Divalproex Sodium ER 500 MG TAB.ER.24H PO (10:09)
[2024-07-15] MEDS: Chlorhexidine Gluc Oral Rinse 15 ML MOUTHWASH BUCCAL ×2 (10:10→21:30)
[2024-07-15] MEDS: Simethicone 80 MG TAB.CHEW PO ×3 (10:10→21:45)
[2024-07-15] MEDS: Atorvastatin Calcium 10 MG TABLET PO (10:10)
[2024-07-15] MEDS: Folic Acid 1 MG TABLET PO (10:10)
[2024-07-15] MEDS: Norepinephrine Bitartrate/D5W 8 MG/250 ML PLAST..BAG 28.15 MG IVCONT ×2 (10:28→16:41)
[2024-07-15] MEDS: Lactated Ringers 1,000 ML 100 ML IVCONT ×2 (11:36→21:56)
--- NOTE | 2024-07-15 12:00 | W.PM.CCCN ---
History of Present Illness Data of Consult Service Date: 07/15/24 Primary Care Provider: Nina Lindsay NP HPI Reason for consult: Hypotension 63-year-old lady with past medical history of developmental delay, HIV, hep C, syphilis, PTSD, unspecified psychosis who lives in the [facility] was admitted to the hospital yesterday after a fall. Patient had a recent biopsy of the anal canal for ASCUS. She underwent a CT abdomen and pelvis which showed a small amount of extraperitoneal extravesical fluid in the pelvic floor, segmental wall thickening of the right hemicolon suggesting colitis. She received 5 L of fluid boluses till she remained hypotensive so was transferred to medical ICU. Review of Systems Constitutional: Constitutional: Reports anorexia, Denies body ache(s) and Denies chills Eyes: Eyes: Denies exophthalmos and Denies change in vision ENT: Denies Normal hearing present, Denies bleeding gums and Denies change in voice Cardiovascular: Cardiovascular: Denies Abdominal Cramping after Meds, Denies Abdominal Distension and Denies acrocyanosis Respiratory: Respiratory: Denies change in phlegm color, Denies chest congestion and Denies cough Gastrointestinal: Gastrointestinal: Denies abdominal pain, Denies belching and Denies melena Genitourinary: Genitourinary: Denies abnormal menses and Denies abnormal vaginal bleeding Musculoskeletal: Musculoskeletal: Denies back pain, Reports myalgias and Denies atrophy Neurologic: Denies Normal hearing present, Denies Neuro-related abnormal movements and Denies Abnormal speech present PMF Past Medical History Medical History Positive serological reaction for syphilis Hypothyroidism Hx of acute pancreatitis Hx of acute renal failure History of ETOH abuse Hx of herpes genitalis History of diverticulosis Constipation History of intravenous drug abuse Developmental delay, mild COVID-19 vaccine series completed Depression PTSD (post-traumatic stress disorder) Hyperlipidemia Seasonal allergies Hx of hepatitis C HIV (human immunodeficiency virus infection) Nocturia Frequency of micturition Family History Family History Mother Alzheimer disease Breast cancer HTN (hypertension) Paternal Aunt Breast cancer Surgical History Surgical History History of colonoscopy Social History Social History Household Members: None Household Members Other:: [facility] Housing: Apartment Housing Other:: Nursing Home Are you a primary emergency care attendant to a significant other at home: No Do you presently have visiting nurse or other home services: Yes Unable to assess alcohol history related to: Unknown Alcohol intake: never Patient Tobacco Use Status: Never used Tobacco e-Cigarette/Vaping Use: Never Used Second Hand Smoke Exposure: No service: No Sexual orientation: Decline to Answer Meds Allergies Allergy/AdvReac Type Severity Reaction Status Date / Time abacavir [ABACAVIR] Allergy Severe HIVES Verified 07/14/24 07:48 hydrochlorothiazide Allergy Severe HIVES Verified 07/14/24 07:48 [HYDROCHLOROTHIAZIDE] ibuprofen [From MOTRIN] Allergy Severe HIVES Verified 07/14/24 07:48 Penicillins [PENICILLINS] Allergy Severe HIVES Verified 07/14/24 07:48 tenofovir [From VIREAD] Allergy Severe HIVES Verified 07/14/24 07:48 tomato [TOMATO] Allergy Severe HIVES Verified 07/14/24 07:48 zidovudine [From RETROVIR] Allergy Severe HIVES Verified 07/14/24 07:48 lactose [Lactose] AdvReac Mild DIARRHEA Verified 07/14/24 07:48 disoproxail Allergy Mild Unknown Uncoded 07/14/24 07:48 Active Medications: Current Medications Acetaminophen (Acetaminophen 325 Mg Tablet) 650 mg PO Q6H PRN PRN Reason: Pain, Mild 1-3,fever,headache Last Admin: 07/14/24 18:34 Dose: 650 mg Albuterol Sulfate (Albuterol Sulfate 90 Mcg 8 Gm Inhaler) 2 puff INHALE Q4H PRN PRN Reason: Wheezing Atorvastatin Calcium (Atorvastatin Calcium 10 Mg Tablet) 10 mg PO DAILY [facility] Last Admin: 07/15/24 10:10 Dose: 10 mg Bictegravir/Emtricitabine/Tenofovir (Bictegrav/Emtricit/Tenofov Ala Tablet) 1 tab PO DAILY [facility] Last Admin: 07/15/24 10:07 Dose: 1 tab Calcium Carbonate (Calcium Carbonate 750 Mg Tab.Chew) 750 mg PO Q4H PRN PRN Reason: Heartburn Ceftriaxone Sodium (Ceftriaxone Sodium 1 Gm Vial) 1 gm IVPUSH Q24H [facility] Last Admin: 07/14/24 13:59 Dose: 1 gm Chlorhexidine Gluconate (Chlorhexidine Gluc Oral Rinse 15 Ml Mouthwash) 15 ml BUCCAL BID [facility] Last Admin: 07/15/24 10:10 Dose: 15 ml Cyanocobalamin (Cyanocobalamin (Vitamin B-12) 100 Mcg Tablet) 50 mcg PO DAILY [facility] Last Admin: 07/15/24 10:09 Dose: 50 mcg Diazepam (Diazepam 5 Mg Tablet) 5 mg PO Q8H PRN PRN Reason: Anxiety Divalproex Sodium (Divalproex Sodium Er 500 Mg Tab.Er.24h) 500 mg PO DAILY [facility] Last Admin: 07/15/24 10:09 Dose: 500 mg Divalproex Sodium (Divalproex Sodium 500 Mg Tablet.Dr) 1,000 mg PO BEDTIME [facility] Last Admin: 07/14/24 21:11 Dose: 1,000 mg Docusate Sodium (Docusate Sodium 100 Mg Capsule) 100 mg PO BID PRN PRN Reason: Constipation Folic Acid (Folic Acid 1 Mg Tablet) 1 mg PO DAILY [facility] Last Admin: 07/15/24 10:10 Dose: 1 mg Heparin Sodium (Porcine) (Heparin Sodium,Porcine 5,000 Unit/Ml Vial) 5,000 unit SUBCUT Q12H [facility] Last Admin: 07/14/24 23:51 Dose: 5,000 unit Hydrocortisone (Hydrocortisone 1 % Cream 28.35 Gm Tube) 1 appl TOPICAL BID PRN; Protocol PRN Reason: Rash Norepinephrine Bitartrate (Levophed) 8 mg in 250 mls @ 0 mls/hr IVCONT .Q0M [facility]; Protocol Last Admin: 07/15/24 10:28 Dose: 0.17 mcg/kg/min, 28.15 mls/hr Lactated Ringer's (Lr) 1,000 mls @ 100 mls/hr IVCONT .Q10H [facility] Last Admin: 07/15/24 11:36 Dose: 100 mls/hr Levothyroxine Sodium (Levothyroxine Sodium 75 Mcg Tablet) 75 mcg PO DAILY@0600 [facility] Last Admin: 07/15/24 04:10 Dose: Not Given Loperamide HCl (Loperamide Hcl 2 Mg Capsule) 4 mg PO Q4H PRN PRN Reason: Diarrhea Magnesium Hydroxide (Milk Of Magnesia 30 Ml Oral.Susp) 30 ml PO DAILY PRN PRN Reason: Constipation Melatonin (Melatonin 3 Mg Tablet) 6 mg PO BEDTIME PRN PRN Reason: Insomnia Multivitamins/Vitamin C (Multivitamin Tablet) 1 tab PO DAILY [facility] Last Admin: 07/15/24 10:07 Dose: 1 tab Omeprazole (Omeprazole 20 Mg Capsule.Dr) 20 mg PO DAILY@0630 [facility] Last Admin: 07/15/24 04:10 Dose: Not Given Ondansetron HCl (Ondansetron Hcl 4 Mg/2 Ml Vial) 4 mg IVPUSH Q8H PRN PRN Reason: Nausea and Vomiting Quetiapine Fumarate (Quetiapine Fumarate 200 Mg Tablet) 200 mg PO TID [facility] Last Admin: 07/15/24 10:09 Dose: 200 mg Senna/Docusate Sodium (Sennosides/Docusate Sodium Tablet) 1 tab PO BEDTIME [facility] Last Admin: 07/14/24 21:11 Dose: 1 tab Sertraline HCl (Sertraline Hcl 100 Mg Tablet) 100 mg PO DAILY [facility] Last Admin: 07/15/24 10:07 Dose: 100 mg Simethicone (Simethicone 80 Mg Tab.Chew) 80 mg PO TID [facility] Last Admin: 07/15/24 10:10 Dose: 80 mg Sodium Chloride (0.9 % Sodium Chloride Flush 3 Ml Syringe) 3 ml IVFLUSH QSHIFT [facility] Last Admin: 07/15/24 10:49 Dose: 3 ml Sodium Chloride (Sodium Chloride 0.65 % Nasal 44 Ml Sprbtl) 1 spray NOSTRIL-B BID [facility] Last Admin: 07/15/24 10:50 Dose: Not Given Trazodone HCl (Trazodone Hcl 100 Mg Tablet) 100 mg PO BEDTIME [facility] Last Admin: 07/14/24 21:11 Dose: 100 mg Home Medications ?Medication ?Instructions ?Recorded ?Confirmed ?Last Taken ?Type acetaminophen 500 mg tablet 500 mg PO Q6H PRN Pain 01/31/21 07/14/24 Unknown History bictegravir 50 mg-emtricitabine 1 tab PO DAILY 01/31/21 07/14/24 02/07/21 07:00 History 200 mg-tenofovir alafenam 25 mg tablet (Biktarvy) calcium 600 mg (as 1 tab PO BID 01/31/21 07/14/24 Unknown History carbonate)-vitamin D3 10 mcg (400 unit) tablet (Calcium 600 + D(3)) folic acid 1 mg tablet 1 mg PO DAILY 01/31/21 07/14/24 Unknown History sodium chloride 0.65 % nasal spray 1 spray intranasal BID 01/31/21 07/14/24 Unknown History aerosol (Saline Nasal) albuterol sulfate 90 mcg/actuation 2 puff inhalation Q4H PRN Wheezing 03/23/21 07/14/24 Unknown History aerosol inhaler simethicone 80 mg chewable tablet 80 mg PO TID 05/09/23 07/14/24 Unknown History lactase 9,000 unit chewable tablet 18,000 unit PO QIDWMHS PRN EATING 05/16/23 07/14/24 Unknown History (Lactaid Fast Act) DIARY sertraline 100 mg tablet 100 mg PO DAILY 05/16/23 07/14/24 Unknown History wheat dextrin 3 gram/4 gram oral 1 packet PO BID 05/16/23 07/14/24 Unknown History powder (Benefiber Sugar Free (dextrin)) atorvastatin 10 mg tablet 10 mg PO DAILY 03/11/24 07/14/24 Unknown History trazodone 100 mg tablet 100 mg PO BEDTIME 03/11/24 07/14/24 Unknown History fluoride (sodium) 1.1 % dental 1 appl PO DAILY 04/16/24 07/14/24 Unknown History cream (Denta 5000 Plus) divalproex 500 mg tablet,extended 500 mg PO DAILY 05/14/24 07/14/24 Unknown History release 24 hr chlorhexidine gluconate 0.12 % 15 ml PO BID 07/14/24 07/14/24 Unknown History mouthwash cyanocobalamin (vitamin B-12) 50 50 mcg PO DAILY 07/14/24 07/14/24 Unknown History mcg tablet (Vitamin B-12) dextran 70-hypromellose eye drops 1 drp ophthalmic (eye) QID 07/14/24 07/14/24 Unknown History in a dropperette (Artificial Tears (PF) drops in a dropperette) diazepam 5 mg tablet (Valium) 5 mg PO Q8H PRN Anxiety 07/14/24 07/14/24 Unknown History divalproex 500 mg tablet,delayed 1,000 mg PO BEDTIME 07/14/24 07/14/24 Unknown History release docusate sodium 100 mg capsule 100 mg PO BID PRN Constipation 07/14/24 07/14/24 Unknown History levothyroxine 75 mcg tablet 75 mcg PO DAILY@0600 07/14/24 07/14/24 Unknown History loperamide 2 mg tablet 4 mg PO Q4H PRN Diarrhea 07/14/24 07/14/24 Unknown History multivitamin with folic acid 400 1 tab PO DAILY 07/14/24 07/14/24 Unknown History mcg tablet (High Potency Multivitamin) omeprazole 20 mg capsule,delayed 20 mg PO DAILY@0630 07/14/24 07/14/24 Unknown History release oxycodone 5 mg tablet 5 mg PO Q6H PRN Pain 07/14/24 07/14/24 Unknown History sennosides 8.6 mg-docusate sodium 1 tab PO BEDTIME 07/14/24 07/14/24 Unknown History 50 mg tablet (Stimulant Laxative Plus) sodium chloride 0.65 % nasal spray 1 spray intranasal BID 07/14/24 07/14/24 Unknown History aerosol (Saline Nasal) Physical Exam Vital Signs: Vital Signs: Last Vital Signs Temp 101.3 F H 07/15/24 11:00 Pulse 101 H 07/15/24 11:00 Resp 21 H 07/15/24 11:00 BP 136/59 L 07/15/24 11:00 Pulse Ox 94 07/15/24 11:00 O2 Del Method Room Air 07/15/24 11:00 FiO2 100 07/15/24 03:00 BMI result Body Mass Index 32.4 General: Patient is in acute distress, ill appearing and tired appearing Nutritional Appearance: well nourished and overweight Eyes: appearance normal, both eyes and all related structures; Alignment and Position: alignment normal and position normal Neck: No lymphadenopathy, no thyromegaly Resp: bilateral air entry equal, occasional added sounds present Cardio: Regular rate, regular rhythm; Heart sounds: S1 normal heart sound present and S2 normal heart sound present GI: soft, nontender, no guarding, no hepatosplenomegaly : bladder normal to inspection, bladder normal to palpation, no renal angle tenderness Skin: no rashes or lesions noted and elasticity normal Neuro: oriented to person, oriented to place, oriented to time and moves all extremities Neuro: Cranial nerves: No Normal hearing present Speech: No Abnormal speech present Results Labs 07/15/24 05:15 07/15/24 05:15 Labs: Short CBC 07/14/24 07/15/24 Range/Units 22:19 05:15 WBC 7.7 10.5 (4.8-10.8) X10*3/uL Hgb 10.1 L D 10.6 L (12.0-16.0) g/dl Hct 28.6 L D 31.0 L (37.0-47.0) % Plt Count 31 L D 31 L (160-400) X10*3/uL BMP 07/14/24 07/15/24 22:19 05:15 Sodium 144 149 H Potassium 3.0 L 3.8 D Chloride 122 H 122 H Carbon Dioxide 16 L 17 L BUN 19 H 17 H Creatinine 1.04 1.03 Calcium 7.2 L D 7.7 L D Cardiac Enzymes 07/14/24 07/14/24 Range/Units 07:55 22:19 Total Creatine Kinase 290 H 565 H (26-140) U/L Liver Function 07/14/24 07/15/24 Range/Units 22:19 05:15 Total Bilirubin 0.6 1.0 (0.0-1.0) mg/dL AST 26 26 (5-31) U/L ALT 11 10 (0-31) U/L Alkaline Phosphatase 20 L 29 L (39-117) U/L Albumin 2.7 L 3.2 L (3.5-5.0) g/dL Urine 07/14/24 Range/Units 14:28 Urine Color Dark Yellow Urine Appearance Cloudy Urine pH 6.0 (5.0-9.0) Ur Specific [place] 1.020 (1.005-1.025) Urine Protein 30 (1+) H (Neg-Trace) mg/dL Urine Glucose (UA) Negative (Negative) mg/dL Microbiology Microbiology Results: Microbiology 07/14/24 08:47 Blood - Venous Blood Culture - Preliminary No growth after 24 hours. 07/14/24 08:02 Blood - Venous Blood Culture - Preliminary No growth after 24 hours. Assessment and Plan (1) Thrombocytopenia: Status: Acute (2) GERD (gastroesophageal reflux disease): Status: Acute (3) Cirrhosis of liver without ascites: Status: Acute Plan Shock: Hypovolemic shock versus septic shock Received 5 L of fluid bolus, currently on Levophed for vasopressor support, titrate Levophed to keep map above 65 mm Hg Has diarrhea, CT abdomen and pelvis showing colitis of right hemicolon; C diff and stool panel pending Also her urine is dirty which might be the source of infection Lactate trended slightly lower with volume replacement, blood cultures sent Continue ceftriaxone for antibiotics HIV: Continue home HIV medication Acute kidney injury: Improving, presented with a creatinine of 1.8 currently down to 1.1 which is close to her baseline Possibly secondary to volume depletion Macrocytic anemia: Hemoglobin 10.5, transfuse if hemoglobin drops below 7 Oral Vitamin B12 and folic acid once better Diet as tolerated Breathing stable on room air Prophylaxis: Lovenox Total time managing care of this patient today: 35 minutes.
[2024-07-15] MEDS: Acetaminophen 325 MG TABLET 650 MG PO ×2 (14:24→21:47)
--- NOTE | 2024-07-15 14:29 | MHC.CM.PN ---
Pt transferred to ICU w/hypotension stemming from a UTI. Pt alert and verbal - states she resides [facility] a [facility] and is independent with care needs. Pt somewhat vague and not able to follow some questions. Pt gave permission for CM to contact rola Jiménezdata warehouse consultant from [facility] at [phone]. Per Jessy, pt has a legal guardian, Lily Lee [phone]. Copy faxed to CM and scanned into EMR. Jessy states pt is able to complete her ADL's independently or with light prompting but has her medications managed by [facility]. ? César. Pt will return to when medically stable: staff will transport
[2024-07-15] MEDS: 0.9 % Sodium Chloride 1,000 ML 999 ML IV (14:34)
[2024-07-15] MEDS: cefTRIAXone sodium 1 GM VIAL IVPUSH (15:43)
[2024-07-15 16:43] LABS: CDiff Gene PCR NEGATIVE (Negative)
[2024-07-15] MEDS: Sodium Chloride 0.65 % Nasal 44 ML SPRBTL 1 SPRAY NOSTRIL-B (21:00)
[2024-07-15] MEDS: traZODone HCL 100 MG TABLET PO (21:30)
[2024-07-15] MEDS: Divalproex Sodium 500 MG TABLET.DR 1000 MG PO (21:31)
[2024-07-16] VITALS (29 sets, daily range): BP systolic 99–150; BP diastolic 46–67; PULSE 80–98; RESP 16–25; TEMP 36.4–38.5; O2SAT 92–98; BMI 32.3
[2024-07-16] MEDS: Norepinephrine Bitartrate/D5W 8 MG/250 ML PLAST..BAG 24.83 MG IVCONT (01:48)
[2024-07-16 05:05] LABS: MANUAL DIFF FLAG NO
[2024-07-16 05:07] LABS: Basophils Percent Auto 0.5 % (0-2); Eosinophils Percent Auto 0.7 % (0-4); Hematocrit 27.9 % (37.0-47.0); Hemoglobin 9.6 g/dl (12.0-16.0); Imm Gran Abs Auto 0.07 X10*3/uL (0.00-0.03); Imm Gran Pct Auto 1.2 % (0.0-0.4); Lymphocytes Absolute Auto 0.7 X10*3/uL (1.2-4.9); Lymphocytes Percent Auto 11.9 % (20-40); Mean Corpuscular HGB Conc 34.4 g/dl (31.0-35.0); Mean Corpuscular Hemoglobin 40.2 pg (27.0-33.0); Mean Corpuscular Volume 116.7 fL (80.0-98.0); Mean Platelet Volume 9.2 fL (9.4-12.3); Monocytes Absolute Auto 0.3 X10*3/uL (0.1-1.2); Monocytes Percent Auto 4.3 % (2-11); Neutrophils Absolute Auto 4.9 x10*3/uL (2.0-8.3); Neutrophils Percent Auto 81.4 % (45-73); Red Blood Count 2.39 X10*6/uL (4.20-5.50)
[2024-07-16 05:09] LABS: Platelet Count 32 X10*3/uL (160-400)
[2024-07-16 05:31] LABS: Albumin Level 2.9 g/dL (3.5-5.0); Anion Gap 9 (12-20); Blood Urea Nitrogen 9 mg/dL (9-16); Calcium 8.5 mg/dL (8.4-10.2); Carbon Dioxide 21 mmol/L (22-29); Chloride 117 mmol/L (96-108); Creatinine Clr Calc Pharmacy 71.9; Estimated Glomerular Filt Rate > 60; Glucose Random 170 mg/dL (60-115); Magnesium 2.1 mg/dL (1.6-2.6); Phosphorus 2.1 mg/dL (2.7-4.5); Potassium 3.6 mmol/L (3.3-5.1); Sodium 143 mmol/L (135-145)
[2024-07-16] MEDS: Omeprazole 20 MG CAPSULE.DR PO (05:43)
[2024-07-16] MEDS: Levothyroxine Sodium 75 MCG TABLET PO (05:43)
[2024-07-16] MEDS: Acetaminophen 325 MG TABLET 650 MG PO ×2 (05:43→16:05)
[2024-07-16] MEDS: Phentolamine Mesylate 5 MG VIAL 10 MG SUBCUT (07:05)
--- NOTE | 2024-07-16 07:21 | PC.NURSE ---
Levophed running through 20 L AC, at 0620 surrounding skin appeared?red and tender. Levophed switched to alternate IV site, 20 L AC removed?- provider notified. Regitine 10 mg subq ordered and administered for possible extravasation.?Redness outlined with skin marker.
[2024-07-16] MEDS: Simethicone 80 MG TAB.CHEW PO ×3 (08:32→20:28)
[2024-07-16] MEDS: Bictegrav/Emtricit/Tenofov Ala TABLET 1 TAB PO (08:33)
[2024-07-16] MEDS: Multivitamin TABLET 1 TAB PO (08:33)
[2024-07-16] MEDS: Divalproex Sodium ER 500 MG TAB.ER.24H PO (08:33)
[2024-07-16] MEDS: Sertraline HCL 100 MG TABLET PO (08:33)
[2024-07-16] MEDS: Folic Acid 1 MG TABLET PO (08:33)
[2024-07-16] MEDS: Cyanocobalamin (Vitamin B-12) 100 MCG TABLET 50 MCG PO (08:33)
[2024-07-16] MEDS: QUEtiapine Fumarate 200 MG TABLET PO ×3 (08:34→20:28)
[2024-07-16] MEDS: 0.9 % Sodium Chloride Flush 3 ML SYRINGE IVFLUSH ×3 (08:34→20:28)
[2024-07-16] MEDS: Atorvastatin Calcium 10 MG TABLET PO (08:34)
[2024-07-16] MEDS: Lactated Ringers 1,000 ML 100 ML IVCONT ×2 (08:35→20:28)
--- NOTE | 2024-07-16 08:53 | P.PNCC_ITS ---
Subjective Subjective Date of Service: 07/16/24 Critical Care Time (minutes): 35 Comment: Continues to be on vasopressor support, however the doses are decreasing currently on 0.07 mcg per kg per minute of Levophed Physical Exam 2 Vital Signs: Vital Signs: Last Vital Signs Temp 99.9 F 07/16/24 08:00 Pulse 84 07/16/24 08:00 Resp 21 H 07/16/24 08:00 BP 112/52 L 07/16/24 08:00 Pulse Ox 95 07/16/24 08:00 O2 Del Method Room Air 07/16/24 08:00 FiO2 100 07/15/24 03:00 BMI result Body Mass Index 32.3 General: Middle-aged white lady, comfortable, not in any acute distress Nutritional Appearance: well nourished and overweight Eyes: appearance normal, both eyes and all related structures; Alignment and Position: alignment normal and position normal Neck: No lymphadenopathy, no thyromegaly Resp: bilateral air entry equal, no added sounds present Cardio: Regular rate, regular rhythm; Heart sounds: S1 normal heart sound present and S2 normal heart sound present GI: soft, nontender, no guarding, no hepatosplenomegaly : bladder normal to inspection, bladder normal to palpation, no renal angle tenderness Skin: no rashes or lesions noted and elasticity normal Neuro: oriented to person, oriented to place, oriented to time and moves all extremities Objective Data Labs 07/16/24 04:57 07/16/24 04:57 Labs: Laboratory Results - last 24 hr 07/15/24 07/16/24 14:50 04:57 WBC 6.0 RBC 2.39 L Hgb 9.6 L Hct 27.9 L MCV 116.7 H MCH 40.2 H MCHC 34.4 RDW 13.0 Plt Count 32 L MPV 9.2 L Immature Gran % (Auto) 1.2 H Neut % (Auto) 81.4 H Lymph % (Auto) 11.9 L [place] % (Auto) 4.3 Eos % (Auto) 0.7 Baso % (Auto) 0.5 Lymph # (Auto) 0.7 L [place] # (Auto) 0.3 Eos # (Auto) 0.0 Baso # (Auto) 0.0 Abs Immat Gran (auto) 0.07 H Absolute Neuts (auto) 4.9 Absolute Nucleated RBC 0.000 Nucleated RBC % (auto) 0.0 Sodium 143 Potassium 3.6 Chloride 117 H Carbon Dioxide 21 L Anion Gap 9 L BUN 9 Creatinine 0.89 Estim Creat Clear Calc 71.9 Estimated GFR > 60 Random Glucose 170 H Calcium 8.5 D Phosphorus 2.1 L Magnesium 2.1 Albumin 2.9 L C. difficile Tox B Gene NEGATIVE Microbiology Microbiology Results: Microbiology 07/14/24 Unknown Urine clean catch - Clean Catch Midstream Urine Culture - Final 07/14/24 08:47 Blood - Venous Blood Culture - Preliminary No growth after 24 hours. 07/14/24 08:02 Blood - Venous Blood Culture - Preliminary No growth after 24 hours. Progress Note: A&P Assessment and plan (1) Thrombocytopenia: Status: Acute (2) GERD (gastroesophageal reflux disease): Status: Acute (3) Cirrhosis of liver without ascites: Status: Acute (4) Acute kidney injury: Status: Acute (5) Cognitive developmental delay: Status: Acute Plan Shock: Hypovolemic shock versus septic shock Received 6L of fluid bolus, currently on Levophed for vasopressor support however the doses are decreasing, down to 0.07 micrograms/kg per minute now, titrate Levophed to keep map above 65 mm Hg Has diarrhea, CT abdomen and pelvis showing colitis of right hemicolon; C diff negative, stool panel pending Although urinalysis showed several WBCs urine culture came back negative Lactate trended slightly lower with volume replacement, blood cultures negative so far Has erythema of the perineal area Continue ceftriaxone for antibiotics HIV: Continue home HIV medication Acute kidney injury: Improved, creatinine down 0.89 Possibly secondary to volume depletion Macrocytic anemia: Hemoglobin 10.5, transfuse if hemoglobin drops below 7 Oral Vitamin B12 and folic acid once better Diet as tolerated Breathing stable on room air will take out the [place] Prophylaxis: Lovenox Quality Stroke Does the patient have a stroke diagnosis?: No VTE Prior VTE?: No VTE Risk Level:: Medical - moderate - high VTE Device Contraindication: Treatment Not Indicated VTE Drug Contraindication: N/A - Med Ordered
[2024-07-16] MEDS: Sodium Chloride 0.65 % Nasal 44 ML SPRBTL 1 SPRAY NOSTRIL-B ×2 (08:57→22:41)
[2024-07-16] MEDS: Albumin Human 25 % 100 ML IV (13:18)
[2024-07-16] MEDS: cefTRIAXone sodium 1 GM VIAL IVPUSH (13:38)
--- NOTE | 2024-07-16 15:03 | MHC.CM.PN ---
Pt making clinical progress: will titrate off pressors and transfer to the medical floor possibly today. Pt from [facility] (see note for contacts / numbers) and will return when medically cleared. half-way may require forms/med rec. Please contact prior to d/c for information and to arrange d/c transportation.
[2024-07-16] MEDS: metroNIDAZOLE/NS 500 MG/100 ML PIGGYBACK 100 MG IV ×2 (17:02→23:58)
[2024-07-16] MEDS: Divalproex Sodium ER 500 MG TAB.ER.24H 1000 MG PO (20:28)
[2024-07-16] MEDS: Sennosides/Docusate Sodium TABLET 1 TAB PO (20:28)
[2024-07-16] MEDS: traZODone HCL 100 MG TABLET PO (20:28)
[2024-07-17] VITALS (8 sets, daily range): BP systolic 110–133; BP diastolic 59–65; PULSE 86–93; RESP 16–18; TEMP 36.6–37.5; O2SAT 94–98
[2024-07-17] MEDS: Omeprazole 20 MG CAPSULE.DR PO (06:14)
[2024-07-17] MEDS: Levothyroxine Sodium 75 MCG TABLET PO (06:14)
[2024-07-17] MEDS: Lactated Ringers 1,000 ML 100 ML IVCONT (06:14)
--- NOTE | 2024-07-17 06:24 | PC.NURSE ---
Assumed care of patient at 19:00. Patient seen on s4, downgraded from ICU earlier in the evening. Pt retaining urine s/p horn catheter removal prior to transfer to s4. Pt was due to void at 22:00 07/[address]. At 22:00 hour due to void assessment pt was found to have been incontinent around purewick with PVR showing 408ml. Covering Dr. Tan Garcia notified with orders to straght cath. S/C done for 450ml odorless cyu. Pt reassessed this morning ~05:30 with 800ml voided in purewick, bladder scan done showing 483ml. Dr. Tan Garcia made aware, advised this aligner typewriter to allow the patient more time as she is able to urinate spontaneously. Purewick replaced, pt denies pelvis pressure or discomfort. Plan of care continues.
[2024-07-17] MEDS: Simethicone 80 MG TAB.CHEW PO ×3 (09:17→20:10)
[2024-07-17] MEDS: Folic Acid 1 MG TABLET PO (09:17)
[2024-07-17] MEDS: Divalproex Sodium ER 500 MG TAB.ER.24H PO (09:17)
[2024-07-17] MEDS: QUEtiapine Fumarate 200 MG TABLET PO ×3 (09:17→20:11)
[2024-07-17] MEDS: Sertraline HCL 100 MG TABLET PO (09:17)
[2024-07-17] MEDS: Atorvastatin Calcium 10 MG TABLET PO (09:17)
[2024-07-17] MEDS: Bictegrav/Emtricit/Tenofov Ala TABLET 1 TAB PO (09:17)
[2024-07-17] MEDS: Multivitamin TABLET 1 TAB PO (09:17)
[2024-07-17] MEDS: Cyanocobalamin (Vitamin B-12) 100 MCG TABLET 50 MCG PO (09:18)
[2024-07-17] MEDS: 0.9 % Sodium Chloride Flush 3 ML SYRINGE IVFLUSH ×3 (09:18→20:11)
[2024-07-17] MEDS: Sodium Chloride 0.65 % Nasal 44 ML SPRBTL 1 SPRAY NOSTRIL-B ×2 (09:18→20:10)
[2024-07-17] MEDS: metroNIDAZOLE/NS 500 MG/100 ML PIGGYBACK 100 MG IV ×2 (09:18→17:04)
[2024-07-17 09:52] LABS: MANUAL DIFF FLAG NO
[2024-07-17 09:56] LABS: Basophils Percent Auto 0.3 % (0-2); Eosinophils Percent Auto 0.3 % (0-4); Hematocrit 26.6 % (37.0-47.0); Hemoglobin 9.5 g/dl (12.0-16.0); Imm Gran Abs Auto 0.05 X10*3/uL (0.00-0.03); Imm Gran Pct Auto 1.5 % (0.0-0.4); Lymphocytes Absolute Auto 0.5 X10*3/uL (1.2-4.9); Lymphocytes Percent Auto 13.8 % (20-40); Mean Corpuscular HGB Conc 35.7 g/dl (31.0-35.0); Mean Corpuscular Hemoglobin 40.6 pg (27.0-33.0); Mean Corpuscular Volume 113.7 fL (80.0-98.0); Mean Platelet Volume 9.6 fL (9.4-12.3); Monocytes Absolute Auto 0.3 X10*3/uL (0.1-1.2); Monocytes Percent Auto 8.9 % (2-11); Neutrophils Absolute Auto 2.5 x10*3/uL (2.0-8.3); Neutrophils Percent Auto 75.2 % (45-73); Platelet Count 25 X10*3/uL (160-400); Red Blood Count 2.34 X10*6/uL (4.20-5.50); Red Cell Distribution Width 12.6 % (11.0-16.0); White Blood Count 3.3 X10*3/uL (4.8-10.8)
[2024-07-17 10:07] LABS: Alanine Aminotransferase 7 U/L (0-31); Alkaline Phosphatase 30 U/L (39-117); Anion Gap 10 (12-20); Aspartate Amino Transferase 21 U/L (5-31); Bilirubin Total 1.1 mg/dL (0.0-1.0); Blood Urea Nitrogen 11 mg/dL (9-16); Calcium 8.6 mg/dL (8.4-10.2); Carbon Dioxide 24 mmol/L (22-29); Chloride 109 mmol/L (96-108); Creatinine Clr Calc Pharmacy 70.2; Estimated Glomerular Filt Rate > 60; Glucose Random 174 mg/dL (60-115); Potassium 3.5 mmol/L (3.3-5.1); Sodium 139 mmol/L (135-145); Total Protein 5.6 g/dL (6.5-8.0)
--- NOTE | 2024-07-17 10:18 | P.CONGS_ITS ---
History of Present Illness Consult details Consult date: 07/17/24 Narrative: Surgical consultation for evaluation of nonspecific abdominal pain. Patient has a plethora of comorbidities and medical problems including psychiatric issues, syphilis, cirrhosis, HIV positive, just to name a few.. On this hospitalization, patient was in the ICU for respiratory issues /COVID and is being transferred to the floor. At an outside facility, she apparently had colonoscopy with polypectomy. She denies left lower quadrant abdominal pain. She states that she has been tolerating a diet and having bowel movements but having left lower quadrant abdominal pain. Chart was reviewed and patient evaluated CT scan really demonstrates no acute pathology or concerning findings warranting acute surgical intervention PMFSH Past Medical History Medical History Positive serological reaction for syphilis Hypothyroidism Hx of acute pancreatitis Hx of acute renal failure History of ETOH abuse Hx of herpes genitalis History of diverticulosis Constipation History of intravenous drug abuse Developmental delay, mild COVID-19 vaccine series completed Depression PTSD (post-traumatic stress disorder) Hyperlipidemia Seasonal allergies Hx of hepatitis C HIV (human immunodeficiency virus infection) Nocturia Frequency of micturition Family History Family History Mother Alzheimer disease Breast cancer HTN (hypertension) Paternal Aunt Breast cancer Surgical History Surgical History History of colonoscopy Social History Social History Household Members: None Household Members Other:: [employer] Housing: Apartment Housing Other:: Longterm Are you a primary lawn care professional to a significant other at home: No Do you presently have visiting nurse or other home services: Yes Unable to assess alcohol history related to: Unknown Alcohol intake: never Patient Tobacco Use Status: Never used Tobacco e-Cigarette/Vaping Use: Never Used Second Hand Smoke Exposure: No service: No Sexual orientation: Decline to Answer Meds Allergies Allergy/AdvReac Type Severity Reaction Status Date / Time abacavir [ABACAVIR] Allergy Severe HIVES Verified 07/14/24 07:48 hydrochlorothiazide Allergy Severe HIVES Verified 07/14/24 07:48 [HYDROCHLOROTHIAZIDE] ibuprofen [From MOTRIN] Allergy Severe HIVES Verified 07/14/24 07:48 Penicillins [PENICILLINS] Allergy Severe HIVES Verified 07/14/24 07:48 tenofovir [From VIREAD] Allergy Severe HIVES Verified 07/14/24 07:48 tomato [TOMATO] Allergy Severe HIVES Verified 07/14/24 07:48 zidovudine [From RETROVIR] Allergy Severe HIVES Verified 07/14/24 07:48 lactose [Lactose] AdvReac Mild DIARRHEA Verified 07/14/24 07:48 disoproxail Allergy Mild Unknown Uncoded 07/14/24 07:48 Active Medications: Current Medications Acetaminophen (Acetaminophen 325 Mg Tablet) 650 mg PO Q6H PRN PRN Reason: Pain, Mild 1-3,fever,headache Last Admin: 07/16/24 16:05 Dose: 650 mg Albuterol Sulfate (Albuterol Sulfate 90 Mcg 8 Gm Inhaler) 2 puff INHALE Q4H PRN PRN Reason: Wheezing Atorvastatin Calcium (Atorvastatin Calcium 10 Mg Tablet) 10 mg PO DAILY [facility] Last Admin: 07/17/24 09:17 Dose: 10 mg Bictegravir/Emtricitabine/Tenofovir (Bictegrav/Emtricit/Tenofov Ala Tablet) 1 tab PO DAILY [facility] Last Admin: 07/17/24 09:17 Dose: 1 tab Calcium Carbonate (Calcium Carbonate 750 Mg Tab.Chew) 750 mg PO Q4H PRN PRN Reason: Heartburn Ceftriaxone Sodium (Ceftriaxone Sodium 1 Gm Vial) 1 gm IVPUSH Q24H [facility] Last Admin: 07/16/24 13:38 Dose: 1 gm Cyanocobalamin (Cyanocobalamin (Vitamin B-12) 100 Mcg Tablet) 50 mcg PO DAILY [facility] Last Admin: 07/17/24 09:18 Dose: 50 mcg Diazepam (Diazepam 5 Mg Tablet) 5 mg PO Q8H PRN PRN Reason: Anxiety Divalproex Sodium (Divalproex Sodium Er 500 Mg Tab.Er.24h) 500 mg PO DAILY [facility] Last Admin: 07/17/24 09:17 Dose: 500 mg Divalproex Sodium (Divalproex Sodium Er 500 Mg Tab.Er.24h) 1,000 mg PO BEDTIME [facility] Last Admin: 07/16/24 20:28 Dose: 1,000 mg Docusate Sodium (Docusate Sodium 100 Mg Capsule) 100 mg PO BID PRN PRN Reason: Constipation Folic Acid (Folic Acid 1 Mg Tablet) 1 mg PO DAILY [facility] Last Admin: 07/17/24 09:17 Dose: 1 mg Hydrocortisone (Hydrocortisone 1 % Cream 28.35 Gm Tube) 1 appl TOPICAL BID PRN; Protocol PRN Reason: Rash Metronidazole (Flagyl) 500 mg in 100 mls @ 100 mls/hr IV Q8H [facility] Last Admin: 07/17/24 09:18 Dose: 100 mls/hr Levothyroxine Sodium (Levothyroxine Sodium 75 Mcg Tablet) 75 mcg PO DAILY@0600 [facility] Last Admin: 07/17/24 06:14 Dose: 75 mcg Loperamide HCl (Loperamide Hcl 2 Mg Capsule) 4 mg PO Q4H PRN PRN Reason: Diarrhea Magnesium Hydroxide (Milk Of Magnesia 30 Ml Oral.Susp) 30 ml PO DAILY PRN PRN Reason: Constipation Melatonin (Melatonin 3 Mg Tablet) 6 mg PO BEDTIME PRN PRN Reason: Insomnia Multivitamins/Vitamin C (Multivitamin Tablet) 1 tab PO DAILY [facility] Last Admin: 07/17/24 09:17 Dose: 1 tab Omeprazole (Omeprazole 20 Mg Capsule.Dr) 20 mg PO DAILY@0630 [facility] Last Admin: 07/17/24 06:14 Dose: 20 mg Ondansetron HCl (Ondansetron Hcl 4 Mg/2 Ml Vial) 4 mg IVPUSH Q8H PRN PRN Reason: Nausea and Vomiting Quetiapine Fumarate (Quetiapine Fumarate 200 Mg Tablet) 200 mg PO TID [facility] Last Admin: 07/17/24 09:17 Dose: 200 mg Senna/Docusate Sodium (Sennosides/Docusate Sodium Tablet) 1 tab PO BEDTIME [facility] Last Admin: 07/16/24 20:28 Dose: 1 tab Sertraline HCl (Sertraline Hcl 100 Mg Tablet) 100 mg PO DAILY [facility] Last Admin: 07/17/24 09:17 Dose: 100 mg Simethicone (Simethicone 80 Mg Tab.Chew) 80 mg PO TID [facility] Last Admin: 07/17/24 09:17 Dose: 80 mg Sodium Chloride (0.9 % Sodium Chloride Flush 3 Ml Syringe) 3 ml IVFLUSH QSHIFT [facility] Last Admin: 07/17/24 09:18 Dose: 3 ml Sodium Chloride (Sodium Chloride 0.65 % Nasal 44 Ml Sprbtl) 1 spray NOSTRIL-B BID [facility] Last Admin: 07/17/24 09:18 Dose: 1 spray Trazodone HCl (Trazodone Hcl 100 Mg Tablet) 100 mg PO BEDTIME [facility] Last Admin: 07/16/24 20:28 Dose: 100 mg Home Medications ?Medication ?Instructions ?Recorded ?Confirmed ?Last Taken ?Type acetaminophen 500 mg tablet 500 mg PO Q6H PRN Pain 01/31/21 07/14/24 Unknown History bictegravir 50 mg-emtricitabine 1 tab PO DAILY 01/31/21 07/14/24 02/07/21 07:00 History 200 mg-tenofovir alafenam 25 mg tablet (Biktarvy) calcium 600 mg (as 1 tab PO BID 01/31/21 07/14/24 Unknown History carbonate)-vitamin D3 10 mcg (400 unit) tablet (Calcium 600 + D(3)) folic acid 1 mg tablet 1 mg PO DAILY 01/31/21 07/14/24 Unknown History sodium chloride 0.65 % nasal spray 1 spray intranasal BID 01/31/21 07/14/24 Unknown History aerosol (Saline Nasal) albuterol sulfate 90 mcg/actuation 2 puff inhalation Q4H PRN Wheezing 03/23/21 07/14/24 Unknown History aerosol inhaler simethicone 80 mg chewable tablet 80 mg PO TID 05/09/23 07/14/24 Unknown History lactase 9,000 unit chewable tablet 18,000 unit PO QIDWMHS PRN EATING 05/16/23 07/14/24 Unknown History (Lactaid Fast Act) DIARY sertraline 100 mg tablet 100 mg PO DAILY 05/16/23 07/14/24 Unknown History wheat dextrin 3 gram/4 gram oral 1 packet PO BID 05/16/23 07/14/24 Unknown History powder (Benefiber Sugar Free (dextrin)) atorvastatin 10 mg tablet 10 mg PO DAILY 03/11/24 07/14/24 Unknown History trazodone 100 mg tablet 100 mg PO BEDTIME 03/11/24 07/14/24 Unknown History fluoride (sodium) 1.1 % dental 1 appl PO DAILY 04/16/24 07/14/24 Unknown History cream (Denta 5000 Plus) divalproex 500 mg tablet,extended 500 mg PO DAILY 05/14/24 07/14/24 Unknown History release 24 hr chlorhexidine gluconate 0.12 % 15 ml PO BID 07/14/24 07/14/24 Unknown History mouthwash cyanocobalamin (vitamin B-12) 50 50 mcg PO DAILY 07/14/24 07/14/24 Unknown History mcg tablet (Vitamin B-12) dextran 70-hypromellose eye drops 1 drp ophthalmic (eye) QID 07/14/24 07/14/24 Unknown History in a dropperette (Artificial Tears (PF) drops in a dropperette) diazepam 5 mg tablet (Valium) 5 mg PO Q8H PRN Anxiety 07/14/24 07/14/24 Unknown History docusate sodium 100 mg capsule 100 mg PO BID PRN Constipation 07/14/24 07/14/24 Unknown History levothyroxine 75 mcg tablet 75 mcg PO DAILY@0600 07/14/24 07/14/24 Unknown History loperamide 2 mg tablet 4 mg PO Q4H PRN Diarrhea 07/14/24 07/14/24 Unknown History multivitamin with folic acid 400 1 tab PO DAILY 07/14/24 07/14/24 Unknown History mcg tablet (High Potency Multivitamin) omeprazole 20 mg capsule,delayed 20 mg PO DAILY@0630 07/14/24 07/14/24 Unknown History release oxycodone 5 mg tablet 5 mg PO Q6H PRN Pain 07/14/24 07/14/24 Unknown History sennosides 8.6 mg-docusate sodium 1 tab PO BEDTIME 07/14/24 07/14/24 Unknown History 50 mg tablet (Stimulant Laxative Plus) sodium chloride 0.65 % nasal spray 1 spray intranasal BID 07/14/24 07/14/24 Unknown History aerosol (Saline Nasal) divalproex 500 mg tablet,extended 1,000 mg PO BEDTIME 07/16/24 07/16/24 Unknown History release 24 hr Physical Exam 2 Vital Signs: Vital Signs: Last Vital Signs Temp 98.2 F 07/17/24 07:21 Pulse 90 07/17/24 10:01 Resp 18 07/17/24 07:21 BP 133/60 07/17/24 10:01 Pulse Ox 94 07/17/24 10:01 O2 Del Method Room Air 07/17/24 07:21 FiO2 100 07/15/24 03:00 BMI result Body Mass Index 32.3 Const: Other: Very ill-appearing female. Minimally communicative. GI: Other: Abdomen corpulent. Mild left lower quadrant tenderness. No evidence of any guarding, rebound, or rigidity. Results Labs 07/17/24 09:46 07/17/24 09:46 Labs: Abnormal lab results 07/17/24 Range/Units 09:46 WBC 3.3 L (4.8-10.8) X10*3/uL RBC 2.34 L (4.20-5.50) X10*6/uL Hgb 9.5 L (12.0-16.0) g/dl Hct 26.6 L (37.0-47.0) % MCV 113.7 H (80.0-98.0) fL MCH 40.6 H (27.0-33.0) pg MCHC 35.7 H (31.0-35.0) g/dl Plt Count 25 L (160-400) X10*3/uL Immature Gran % (Auto) 1.5 H (0.0-0.4) % Neut % (Auto) 75.2 H (45-73) % Lymph % (Auto) 13.8 L (20-40) % Lymph # (Auto) 0.5 L (1.2-4.9) X10*3/uL Abs Immat Gran (auto) 0.05 H (0.00-0.03) X10*3/uL Chloride 109 H (96-108) mmol/L Anion Gap 10 L (12-20) Random Glucose 174 H (60-115) mg/dL Total Bilirubin 1.1 H (0.0-1.0) mg/dL Alkaline Phosphatase 30 L (39-117) U/L Total Protein 5.6 L (6.5-8.0) g/dL Albumin 3.0 L (3.5-5.0) g/dL Short CBC 07/17/24 Range/Units 09:46 WBC 3.3 L (4.8-10.8) X10*3/uL Hgb 9.5 L (12.0-16.0) g/dl Hct 26.6 L (37.0-47.0) % Plt Count 25 L (160-400) X10*3/uL BMP 07/17/24 09:46 Sodium 139 Potassium 3.5 Chloride 109 H Carbon Dioxide 24 BUN 11 Creatinine 0.91 Calcium 8.6 Liver Function 07/17/24 Range/Units 09:46 Total Bilirubin 1.1 H (0.0-1.0) mg/dL AST 21 (5-31) U/L ALT 7 (0-31) U/L Alkaline Phosphatase 30 L (39-117) U/L Albumin 3.0 L (3.5-5.0) g/dL Urine 07/14/24 Range/Units 14:28 Urine Color Dark Yellow Urine Appearance Cloudy Urine pH 6.0 (5.0-9.0) Ur Specific [place] 1.020 (1.005-1.025) Urine Protein 30 (1+) H (Neg-Trace) mg/dL Urine Glucose (UA) Negative (Negative) mg/dL All other labs normal. Assessment and Plan (1) Abdominal pain: Status: Acute Plan At present, patient appears to be stable from a abdominal surgical perspective. Would advance diet as tolerated. Patient was to follow-up with her rn registry and [place] upon discharge to review of the pathology results of her colonoscopy. At present no acute surgical intervention required. We will follow up p.r.n... Procedures Date of Service Date of Service: 07/17/24
--- NOTE | 2024-07-17 10:52 | P.PNIM_ITS ---
Subjective Subjective Date of Service: 07/17/24 Interval History: Seen and evaluated this morning Feels little better abdominal pain improved tolerating diet no other events overnight Review of Systems Review of Systems: Yes all other systems are reviewed and are negative Physical Exam 2 Vital Signs: Vital Signs: Last Vital Signs Temp 98.2 F 07/17/24 07:21 Pulse 90 07/17/24 10:01 Resp 18 07/17/24 07:21 BP 133/60 07/17/24 10:01 Pulse Ox 94 07/17/24 10:01 O2 Del Method Room Air 07/17/24 07:21 FiO2 100 07/15/24 03:00 BMI result Body Mass Index 32.3 Const: Other: Constitutional : interactive, not in distress Cardiovascular : no JVP, no lower extremity edema Respiratory : bilateral chest movement, not in resp distress Gastrointestinal: soft, lax, mild generalized tenderness more in LLQ, no surgical signs Skin : Warm, Dry Neurological : Alert & oriented to self only otherwise confused , No focal deficit Objective Data Active Medications Acetaminophen (Acetaminophen 325 Mg Tablet) 650 mg PO Q6H PRN PRN Reason: Pain, Mild 1-3,fever,headache Last Admin: 07/16/24 16:05 Dose: 650 mg Documented By: HU Albuterol Sulfate (Albuterol Sulfate 90 Mcg 8 Gm Inhaler) 2 puff INHALE Q4H PRN PRN Reason: Wheezing Atorvastatin Calcium (Atorvastatin Calcium 10 Mg Tablet) 10 mg PO DAILY [facility] Last Admin: 07/17/24 09:17 Dose: 10 mg Documented By: GORDON Bictegravir/Emtricitabine/Tenofovir (Bictegrav/Emtricit/Tenofov Ala Tablet) 1 tab PO DAILY [facility] Last Admin: 07/17/24 09:17 Dose: 1 tab Documented By: GORDON Calcium Carbonate (Calcium Carbonate 750 Mg Tab.Chew) 750 mg PO Q4H PRN PRN Reason: Heartburn Ceftriaxone Sodium (Ceftriaxone Sodium 1 Gm Vial) 1 gm IVPUSH Q24H [facility] Last Admin: 07/16/24 13:38 Dose: 1 gm Documented By: HU Cyanocobalamin (Cyanocobalamin (Vitamin B-12) 100 Mcg Tablet) 50 mcg PO DAILY [facility] Last Admin: 07/17/24 09:18 Dose: 50 mcg Documented By: GORDON Diazepam (Diazepam 5 Mg Tablet) 5 mg PO Q8H PRN PRN Reason: Anxiety Divalproex Sodium (Divalproex Sodium Er 500 Mg Tab.Er.24h) 500 mg PO DAILY [facility] Last Admin: 07/17/24 09:17 Dose: 500 mg Documented By: GORDON Divalproex Sodium (Divalproex Sodium Er 500 Mg Tab.Er.24h) 1,000 mg PO BEDTIME [facility] Last Admin: 07/16/24 20:28 Dose: 1,000 mg Documented By: DAPHNEY Docusate Sodium (Docusate Sodium 100 Mg Capsule) 100 mg PO BID PRN PRN Reason: Constipation Folic Acid (Folic Acid 1 Mg Tablet) 1 mg PO DAILY [facility] Last Admin: 07/17/24 09:17 Dose: 1 mg Documented By: GORDON Hydrocortisone (Hydrocortisone 1 % Cream 28.35 Gm Tube) 1 appl TOPICAL BID PRN; Protocol PRN Reason: Rash Metronidazole (Flagyl) 500 mg in 100 mls @ 100 mls/hr IV Q8H [facility] Last Admin: 07/17/24 09:18 Dose: 100 mls/hr Documented By: GORDON Levothyroxine Sodium (Levothyroxine Sodium 75 Mcg Tablet) 75 mcg PO DAILY@0600 [facility] Last Admin: 07/17/24 06:14 Dose: 75 mcg Documented By: DAPHNEY Loperamide HCl (Loperamide Hcl 2 Mg Capsule) 4 mg PO Q4H PRN PRN Reason: Diarrhea Magnesium Hydroxide (Milk Of Magnesia 30 Ml Oral.Susp) 30 ml PO DAILY PRN PRN Reason: Constipation Melatonin (Melatonin 3 Mg Tablet) 6 mg PO BEDTIME PRN PRN Reason: Insomnia Multivitamins/Vitamin C (Multivitamin Tablet) 1 tab PO DAILY [facility] Last Admin: 07/17/24 09:17 Dose: 1 tab Documented By: GORDON Omeprazole (Omeprazole 20 Mg Capsule.) 20 mg PO DAILY@0630 [facility] Last Admin: 07/17/24 06:14 Dose: 20 mg Documented By: DAPHNEY Ondansetron HCl (Ondansetron Hcl 4 Mg/2 Ml Vial) 4 mg IVPUSH Q8H PRN PRN Reason: Nausea and Vomiting Quetiapine Fumarate (Quetiapine Fumarate 200 Mg Tablet) 200 mg PO TID [facility] Last Admin: 07/17/24 09:17 Dose: 200 mg Documented By: GORDON Senna/Docusate Sodium (Sennosides/Docusate Sodium Tablet) 1 tab PO BEDTIME [facility] Last Admin: 07/16/24 20:28 Dose: 1 tab Documented By: DAPHNEY Sertraline HCl (Sertraline Hcl 100 Mg Tablet) 100 mg PO DAILY [facility] Last Admin: 07/17/24 09:17 Dose: 100 mg Documented By: GORDON Simethicone (Simethicone 80 Mg Tab.Chew) 80 mg PO TID [facility] Last Admin: 07/17/24 09:17 Dose: 80 mg Documented By: GORDON Sodium Chloride (0.9 % Sodium Chloride Flush 3 Ml Syringe) 3 ml IVFLUSH QSHIFT [facility] Last Admin: 07/17/24 09:18 Dose: 3 ml Documented By: GORDON Sodium Chloride (Sodium Chloride 0.65 % Nasal 44 Ml Sprbtl) 1 spray NOSTRIL-B BID [facility] Last Admin: 07/17/24 09:18 Dose: 1 spray Documented By: GORDON Trazodone HCl (Trazodone Hcl 100 Mg Tablet) 100 mg PO BEDTIME [facility] Last Admin: 07/16/24 20:28 Dose: 100 mg Documented By: DAPHNEY Labs 07/17/24 09:46 07/17/24 09:46 Labs: Laboratory Results - last 24 hr 07/17/24 09:46 MCV 113.7 H MCH 40.6 H MCHC 35.7 H RDW 12.6 Plt Count 25 L MPV 9.6 Immature Gran % (Auto) 1.5 H Neut % (Auto) 75.2 H Lymph % (Auto) 13.8 L [place] % (Auto) 8.9 Eos % (Auto) 0.3 Baso % (Auto) 0.3 Lymph # (Auto) 0.5 L [place] # (Auto) 0.3 Eos # (Auto) 0.0 Baso # (Auto) 0.0 Abs Immat Gran (auto) 0.05 H Absolute Neuts (auto) 2.5 Absolute Nucleated RBC 0.000 Nucleated RBC % (auto) 0.0 Anion Gap 10 L Estim Creat Clear Calc 70.2 Estimated GFR > 60 Random Glucose 174 H Calcium 8.6 Total Bilirubin 1.1 H AST 21 ALT 7 Alkaline Phosphatase 30 L Total Protein 5.6 L Albumin 3.0 L Microbiology Microbiology Results: Microbiology 07/14/24 08:47 Blood Culture - Preliminary Blood - Venous No growth after 48 hours. 07/14/24 08:02 Blood Culture - Preliminary Blood - Venous No growth after 48 hours. Assessment and Plan (1) SIRS (systemic inflammatory response syndrome): Status: Acute (2) COVID-19: Status: Acute (3) Acidosis, lactic: Status: Acute (4) Colitis: Status: Acute Plan A 63 years old lady with PMH of HIV, syphilis, cirrhosis, hepatitis-C, PTSD, and unspecified psychosis with reported developmental delay among others who [facility] presenting after sustaining a fall. Covid19 infection , acute no hypoxia supportive therapy Colitis complicated with hypovolemic\septic shock shock resolved in ICU blood cultures negative On Ceftriaxone and Flagyl Advance diet to regular surgical input appreciated, no acute findings Fall w physical deconditioning mechanical in nature with reported weakness PT eval rec STR ALYSSA on CKD3 Likely from dehydration Check CK IVF for now follow I\O and BMP Pancytopenia chronic in baseline, worse now likely with acute illness Hx HIV continue HAART DVT PPx Heparin The patient will need overnight hospital stay for Covid, fall and weakness pending cultures and correcting of Lactic acidosis Quality Stroke Does the patient have a stroke diagnosis?: No VTE Prior VTE?: No VTE Risk Level:: Medical - moderate - high VTE Device Contraindication: Treatment Not Indicated VTE Drug Contraindication: N/A - Med Ordered
--- NOTE | 2024-07-17 13:37 | MHC.CM.PN ---
Per rounds, pt is not ready to DC, she requires ongoing treatment for Covid, weakness, and falls. PT eval completed and rec is for [facility]. CM has reached out to skilled nursing nurse to determine pt. choice for rehabs.
--- NOTE | 2024-07-17 15:43 | MHC.CM.PN ---
Pt has guardian in place, Lily Mckoy
--- NOTE | 2024-07-17 15:46 | MHC.CM.PN ---
Pt has guardian in place, Lily Rosa. Guardianship paperwork does not indicate that Lily can sign pt. into a STR. Referral have been made, an intent to admit form will need to be completed when pt. goes to [facility].
[2024-07-17] MEDS: cefTRIAXone sodium 1 GM VIAL IVPUSH (17:04)
[2024-07-17] MEDS: traZODone HCL 100 MG TABLET PO (20:11)
[2024-07-17] MEDS: Divalproex Sodium ER 500 MG TAB.ER.24H 1000 MG PO (20:11)
[2024-07-17] MEDS: Sennosides/Docusate Sodium TABLET 1 TAB PO (20:11)
[2024-07-18] MEDS: metroNIDAZOLE/NS 500 MG/100 ML PIGGYBACK 100 MG IV ×3 (02:01→15:44)
[2024-07-18 03:47] VITALS: BP 109/58; PULSE 86; RESP 16; TEMP 36.6; O2SAT 94
[2024-07-18] MEDS: Levothyroxine Sodium 75 MCG TABLET PO (06:03)
[2024-07-18] MEDS: Omeprazole 20 MG CAPSULE.DR PO (06:03)
[2024-07-18 06:25] LABS: Basophils Percent Auto 0.3 % (0-2); Eosinophils Absolute Auto 0.1 X10*3/uL (0.0-0.4); Eosinophils Percent Auto 1.7 % (0-4); Hematocrit 26.8 % (37.0-47.0); Hemoglobin 9.7 g/dl (12.0-16.0); Imm Gran Abs Auto 0.11 X10*3/uL (0.00-0.03); Imm Gran Pct Auto 3.7 % (0.0-0.4); Lymphocytes Absolute Auto 0.6 X10*3/uL (1.2-4.9); Lymphocytes Percent Auto 19.5 % (20-40); Mean Corpuscular HGB Conc 36.2 g/dl (31.0-35.0); Mean Corpuscular Hemoglobin 41.3 pg (27.0-33.0); Mean Platelet Volume 12.2 fL (9.4-12.3); Monocytes Absolute Auto 0.3 X10*3/uL (0.1-1.2); Monocytes Percent Auto 10.7 % (2-11); Neutrophils Absolute Auto 1.9 x10*3/uL (2.0-8.3); Neutrophils Percent Auto 64.1 % (45-73); PLT CLUMP 1; Red Blood Count 2.35 X10*6/uL (4.20-5.50); Red Cell Distribution Width 12.7 % (11.0-16.0); SCAN SMEAR FLAG 1
[2024-07-18 06:27] LABS: MANUAL DIFF FLAG NO
[2024-07-18 06:32] LABS: Anion Gap 12 (12-20); Blood Urea Nitrogen 15 mg/dL (9-16); Calcium 8.5 mg/dL (8.4-10.2); Carbon Dioxide 23 mmol/L (22-29); Chloride 109 mmol/L (96-108); Estimated Glomerular Filt Rate > 60; Glucose Random 136 mg/dL (60-115); Sodium 140 mmol/L (135-145)
[2024-07-18 06:38] LABS: Platelet Count 35 X10*3/uL (160-400)
[2024-07-18 07:36] VITALS: BP 105/53; PULSE 83; RESP 18; TEMP 36.6; O2SAT 94
[2024-07-18] MEDS: QUEtiapine Fumarate 200 MG TABLET PO ×3 (08:02→19:52)
[2024-07-18] MEDS: Atorvastatin Calcium 10 MG TABLET PO (08:03)
[2024-07-18] MEDS: Sertraline HCL 100 MG TABLET PO (08:03)
[2024-07-18] MEDS: Divalproex Sodium ER 500 MG TAB.ER.24H PO (08:03)
[2024-07-18] MEDS: Bictegrav/Emtricit/Tenofov Ala TABLET 1 TAB PO (08:03)
[2024-07-18] MEDS: Folic Acid 1 MG TABLET PO (08:03)
[2024-07-18] MEDS: Multivitamin TABLET 1 TAB PO (08:03)
[2024-07-18] MEDS: Simethicone 80 MG TAB.CHEW PO ×3 (08:03→19:52)
[2024-07-18] MEDS: Cyanocobalamin (Vitamin B-12) 100 MCG TABLET 50 MCG PO (08:03)
[2024-07-18] MEDS: Sodium Chloride 0.65 % Nasal 44 ML SPRBTL 1 SPRAY NOSTRIL-B ×2 (08:07→19:52)
[2024-07-18] MEDS: 0.9 % Sodium Chloride Flush 3 ML SYRINGE IVFLUSH ×2 (08:08→15:41)
[2024-07-18 11:11] VITALS: BP 99/55; PULSE 87; RESP 18; TEMP 36.6; O2SAT 94
[2024-07-18] MEDS: cefTRIAXone sodium 1 GM VIAL IVPUSH (12:54)
--- NOTE | 2024-07-18 13:27 | P.PNIM_ITS ---
Subjective Subjective Date of Service: 07/18/24 Interval History: Seen and evaluated this morning Feels little better abdominal pain improved , tolerating diet no other events overnight Review of Systems Review of Systems: Yes all other systems are reviewed and are negative Physical Exam 2 Vital Signs: Vital Signs: Last Vital Signs Temp 97.8 F 07/18/24 11:11 Pulse 87 07/18/24 11:11 Resp 18 07/18/24 11:11 BP 99/55 L 07/18/24 11:11 Pulse Ox 94 07/18/24 11:11 O2 Del Method Room Air 07/18/24 11:11 FiO2 100 07/15/24 03:00 BMI result Body Mass Index 32.3 Const: Other: Constitutional : interactive, not in distress Cardiovascular : no JVP, no lower extremity edema Respiratory : bilateral chest movement, not in resp distress Gastrointestinal: soft, lax, mild generalized tenderness more in LLQ, no surgical signs Skin : Warm, Dry Neurological : Alert & oriented to self only otherwise confused , No focal deficit Objective Data Active Medications Acetaminophen (Acetaminophen 325 Mg Tablet) 650 mg PO Q6H PRN PRN Reason: Pain, Mild 1-3,fever,headache Last Admin: 07/16/24 16:05 Dose: 650 mg Documented By: HU Albuterol Sulfate (Albuterol Sulfate 90 Mcg 8 Gm Inhaler) 2 puff INHALE Q4H PRN PRN Reason: Wheezing Atorvastatin Calcium (Atorvastatin Calcium 10 Mg Tablet) 10 mg PO DAILY [facility] Last Admin: 07/18/24 08:03 Dose: 10 mg Documented By: MARII Bictegravir/Emtricitabine/Tenofovir (Bictegrav/Emtricit/Tenofov Ala Tablet) 1 tab PO DAILY [facility] Last Admin: 07/18/24 08:03 Dose: 1 tab Documented By: MARII Calcium Carbonate (Calcium Carbonate 750 Mg Tab.Chew) 750 mg PO Q4H PRN PRN Reason: Heartburn Ceftriaxone Sodium (Ceftriaxone Sodium 1 Gm Vial) 1 gm IVPUSH Q24H [facility] Last Admin: 07/18/24 12:54 Dose: 1 gm Documented By: MARII Cyanocobalamin (Cyanocobalamin (Vitamin B-12) 100 Mcg Tablet) 50 mcg PO DAILY [facility] Last Admin: 07/18/24 08:03 Dose: 50 mcg Documented By: MARII Diazepam (Diazepam 5 Mg Tablet) 5 mg PO Q8H PRN PRN Reason: Anxiety Divalproex Sodium (Divalproex Sodium Er 500 Mg Tab.Er.24h) 500 mg PO DAILY [facility] Last Admin: 07/18/24 08:03 Dose: 500 mg Documented By: MARII Divalproex Sodium (Divalproex Sodium Er 500 Mg Tab.Er.24h) 1,000 mg PO BEDTIME [facility] Last Admin: 07/17/24 20:11 Dose: 1,000 mg Documented By: SANDY Docusate Sodium (Docusate Sodium 100 Mg Capsule) 100 mg PO BID PRN PRN Reason: Constipation Folic Acid (Folic Acid 1 Mg Tablet) 1 mg PO DAILY [facility] Last Admin: 07/18/24 08:03 Dose: 1 mg Documented By: MARII Hydrocortisone (Hydrocortisone 1 % Cream 28.35 Gm Tube) 1 appl TOPICAL BID PRN; Protocol PRN Reason: Rash Metronidazole (Flagyl) 500 mg in 100 mls @ 100 mls/hr IV Q8H [facility] Last Infusion: 07/18/24 09:11 Dose: Infused Documented By: MARII Levothyroxine Sodium (Levothyroxine Sodium 75 Mcg Tablet) 75 mcg PO DAILY@0600 [facility] Last Admin: 07/18/24 06:03 Dose: 75 mcg Documented By: SANDY Loperamide HCl (Loperamide Hcl 2 Mg Capsule) 4 mg PO Q4H PRN PRN Reason: Diarrhea Magnesium Hydroxide (Milk Of Magnesia 30 Ml Oral.Susp) 30 ml PO DAILY PRN PRN Reason: Constipation Melatonin (Melatonin 3 Mg Tablet) 6 mg PO BEDTIME PRN PRN Reason: Insomnia Multivitamins/Vitamin C (Multivitamin Tablet) 1 tab PO DAILY [facility] Last Admin: 07/18/24 08:03 Dose: 1 tab Documented By: MARII Omeprazole (Omeprazole 20 Mg Capsule.) 20 mg PO DAILY@0630 [facility] Last Admin: 07/18/24 06:03 Dose: 20 mg Documented By: SANDY Ondansetron HCl (Ondansetron Hcl 4 Mg/2 Ml Vial) 4 mg IVPUSH Q8H PRN PRN Reason: Nausea and Vomiting Quetiapine Fumarate (Quetiapine Fumarate 200 Mg Tablet) 200 mg PO TID [facility] Last Admin: 07/18/24 08:02 Dose: 200 mg Documented By: MARII Senna/Docusate Sodium (Sennosides/Docusate Sodium Tablet) 1 tab PO BEDTIME [facility] Last Admin: 07/17/24 20:11 Dose: 1 tab Documented By: SANDY Sertraline HCl (Sertraline Hcl 100 Mg Tablet) 100 mg PO DAILY [facility] Last Admin: 07/18/24 08:03 Dose: 100 mg Documented By: MARII Simethicone (Simethicone 80 Mg Tab.Chew) 80 mg PO TID [facility] Last Admin: 07/18/24 08:03 Dose: 80 mg Documented By: MARII Sodium Chloride (0.9 % Sodium Chloride Flush 3 Ml Syringe) 3 ml IVFLUSH QSHIFT [facility] Last Admin: 07/18/24 08:08 Dose: 3 ml Documented By: MARII Sodium Chloride (Sodium Chloride 0.65 % Nasal 44 Ml Sprbtl) 1 spray NOSTRIL-B BID [facility] Last Admin: 07/18/24 08:07 Dose: 1 spray Documented By: MARII Trazodone HCl (Trazodone Hcl 100 Mg Tablet) 100 mg PO BEDTIME [facility] Last Admin: 07/17/24 20:11 Dose: 100 mg Documented By: SANDY Labs 07/18/24 06:03 07/18/24 06:03 Labs: Laboratory Results - last 24 hr 07/15/24 07/18/24 14:50 06:03 MCV 114.0 H MCH 41.3 H MCHC 36.2 H RDW 12.7 Plt Count 35 L D MPV 12.2 Immature Gran % (Auto) 3.7 H Neut % (Auto) 64.1 Lymph % (Auto) 19.5 L Winkler % (Auto) 10.7 Eos % (Auto) 1.7 Baso % (Auto) 0.3 Lymph # (Auto) 0.6 L Winkler # (Auto) 0.3 Eos # (Auto) 0.1 Baso # (Auto) 0.0 Abs Immat Gran (auto) 0.11 H Absolute Neuts (auto) 1.9 L Absolute Nucleated RBC 0.000 Nucleated RBC % (auto) 0.0 Anion Gap 12 Estim Creat Clear Calc 71.0 Estimated GFR > 60 Random Glucose 136 H Calcium 8.5 Stl C. cayetanensis PCR Cancelled Stool Rotavirus A PCR Cancelled Stl Adenov F 40/41 PCR Cancelled Stool Astrovirus (PCR) Cancelled Stool Campylobacter PCR Cancelled Stool Cryptosporidium PCR Cancelled Stl Sh Tox Pr E STEC PCR Cancelled Stool E coli O157 PCR Cancelled Stl Enterotoxigenic E PCR Cancelled Stool EPEC (PCR) Cancelled Stool EAEC (PCR) Cancelled Stl E. histolytica PCR Cancelled Stool Giardia Lamblia PCR Cancelled Stl P. shigelloides PCR Cancelled Stool Salmonella PCR Cancelled Stool Sapovirus (PCR) Cancelled Stl Shigella/EIEC PCR Cancelled St Y.enterocolitica PCR Cancelled Stool Vibrio (PCR) Cancelled Stl Vibrio cholerae PCR Cancelled Stl Norovirus GI/GII PCR Cancelled Assessment and Plan (1) Colitis: Status: Acute (2) COVID-19: Status: Acute Plan A 63 years old lady with PMH of HIV, syphilis, cirrhosis, hepatitis-C, PTSD, and unspecified psychosis with reported developmental delay among others [facility] after [facility] a [facility]. Covid19 infection , acute no hypoxia supportive therapy Colitis complicated with hypovolemic\septic shock shock resolved in ICU blood cultures negative continue On Ceftriaxone and Flagyl Advance diet to regular surgical input appreciated, no acute findings Fall w physical deconditioning mechanical in nature with reported weakness PT eval rec STR ; Guardian has no authority to admit her to SNF, will need to go to court for petition ALYSSA on CKD3 resolved follow I\O and BMP Pancytopenia chronic in baseline, worse now likely with acute illness Hx HIV continue HAART DVT PPx Heparin The patient will need overnight hospital stay for Covid, colitis, fall and weakness pending cultures and safe discharge plan Quality Stroke Does the patient have a stroke diagnosis?: No VTE Prior VTE?: No VTE Risk Level:: Medical - moderate - high VTE Device Contraindication: Treatment Not Indicated VTE Drug Contraindication: N/A - Med Ordered
[2024-07-18 15:12] VITALS: BP 101/54; PULSE 82; RESP 16; TEMP 37.1; O2SAT 92
[2024-07-18] MEDS: traZODone HCL 100 MG TABLET PO (19:52)
[2024-07-18] MEDS: Sennosides/Docusate Sodium TABLET 1 TAB PO (19:52)
[2024-07-18] MEDS: Divalproex Sodium ER 500 MG TAB.ER.24H 1000 MG PO (19:52)
[2024-07-18 20:00] VITALS: BP 97/57; PULSE 90; RESP 20; TEMP 36.3; O2SAT 93
[2024-07-19] VITALS: BP 101/54; PULSE 92; RESP 18; TEMP 36.9; O2SAT 98
[2024-07-19] MEDS: metroNIDAZOLE/NS 500 MG/100 ML PIGGYBACK 100 MG IV (02:33)
[2024-07-19] MEDS: 0.9 % Sodium Chloride Flush 3 ML SYRINGE IVFLUSH ×4 (02:34→21:49)
[2024-07-19 04:00] VITALS: BP 99/51; PULSE 79; RESP 18; TEMP 36.6; O2SAT 94
[2024-07-19] MEDS: Levothyroxine Sodium 75 MCG TABLET PO (05:20)
[2024-07-19] MEDS: Omeprazole 20 MG CAPSULE.DR PO (05:20)
[2024-07-19 07:08] VITALS: BP 105/55; PULSE 75; RESP 18; TEMP 36.5; O2SAT 96
[2024-07-19] MEDS: Bictegrav/Emtricit/Tenofov Ala TABLET 1 TAB PO (10:09)
[2024-07-19] MEDS: Atorvastatin Calcium 10 MG TABLET PO (10:09)
[2024-07-19] MEDS: Simethicone 80 MG TAB.CHEW PO ×3 (10:09→21:48)
[2024-07-19] MEDS: Folic Acid 1 MG TABLET PO (10:09)
[2024-07-19] MEDS: Divalproex Sodium ER 500 MG TAB.ER.24H PO (10:09)
[2024-07-19] MEDS: Sertraline HCL 100 MG TABLET PO (10:09)
[2024-07-19] MEDS: Multivitamin TABLET 1 TAB PO (10:09)
[2024-07-19] MEDS: QUEtiapine Fumarate 200 MG TABLET PO ×3 (10:09→21:48)
[2024-07-19] MEDS: Cyanocobalamin (Vitamin B-12) 100 MCG TABLET 50 MCG PO (10:09)
[2024-07-19] MEDS: Sodium Chloride 0.65 % Nasal 44 ML SPRBTL 1 SPRAY NOSTRIL-B ×2 (10:10→21:52)
[2024-07-19 10:56] VITALS: BP 102/49; PULSE 81; RESP 16; TEMP 36.8; O2SAT 93
[2024-07-19] MEDS: metroNIDAZOLE 500 MG TABLET PO ×2 (12:09→17:02)
--- NOTE | 2024-07-19 13:26 | HO.PM.IMPN ---
Subjective Subjective Date of Service: 07/19/24 Interval History: Seen and evaluated this morning Feels little better abdominal pain improved , tolerating diet no other events overnight Review of Systems Review of Systems: Yes all other systems are reviewed and are negative Physical Exam Vital Signs: Vital Signs: Last Vital Signs Temp 98.2 F 07/19/24 10:56 Pulse 81 07/19/24 10:56 Resp 16 07/19/24 10:56 BP 102/49 L 07/19/24 10:56 Pulse Ox 93 07/19/24 10:56 O2 Del Method Room Air 07/19/24 10:56 FiO2 100 07/15/24 03:00 BMI result Body Mass Index 32.3 Const: Other: Constitutional : interactive, not in distress Cardiovascular : no JVP, no lower extremity edema Respiratory : bilateral chest movement, not in resp distress Gastrointestinal: soft, lax, mild generalized tenderness more in LLQ, no surgical signs Skin : Warm, Dry Neurological : Alert & oriented to self only otherwise confused , No focal deficit Objective Data Active Medications Acetaminophen (Acetaminophen 325 Mg Tablet) 650 mg PO Q6H PRN PRN Reason: Pain, Mild 1-3,fever,headache Last Admin: 07/16/24 16:05 Dose: 650 mg Documented By: NINAORRValeria Albuterol Sulfate (Albuterol Sulfate 90 Mcg 8 Gm Inhaler) 2 puff INHALE Q4H PRN PRN Reason: Wheezing Atorvastatin Calcium (Atorvastatin Calcium 10 Mg Tablet) 10 mg PO DAILY [facility] Last Admin: 07/19/24 10:09 Dose: 10 mg Documented By: GORDON Bictegravir/Emtricitabine/Tenofovir (Bictegrav/Emtricit/Tenofov Ala Tablet) 1 tab PO DAILY [facility] Last Admin: 07/19/24 10:09 Dose: 1 tab Documented By: GORDON Calcium Carbonate (Calcium Carbonate 750 Mg Tab.Chew) 750 mg PO Q4H PRN PRN Reason: Heartburn Ceftriaxone Sodium (Ceftriaxone Sodium 1 Gm Vial) 1 gm IVPUSH Q24H [facility] Last Admin: 07/18/24 12:54 Dose: 1 gm Documented By: MARII Cyanocobalamin (Cyanocobalamin (Vitamin B-12) 100 Mcg Tablet) 50 mcg PO DAILY [facility] Last Admin: 07/19/24 10:09 Dose: 50 mcg Documented By: GORDON Diazepam (Diazepam 5 Mg Tablet) 5 mg PO Q8H PRN PRN Reason: Anxiety Divalproex Sodium (Divalproex Sodium Er 500 Mg Tab.Er.24h) 500 mg PO DAILY [facility] Last Admin: 07/19/24 10:09 Dose: 500 mg Documented By: GORDON Divalproex Sodium (Divalproex Sodium Er 500 Mg Tab.Er.24h) 1,000 mg PO BEDTIME [facility] Last Admin: 07/18/24 19:52 Dose: 1,000 mg Documented By: SANDY Docusate Sodium (Docusate Sodium 100 Mg Capsule) 100 mg PO BID PRN PRN Reason: Constipation Folic Acid (Folic Acid 1 Mg Tablet) 1 mg PO DAILY [facility] Last Admin: 07/19/24 10:09 Dose: 1 mg Documented By: GORDON Hydrocortisone (Hydrocortisone 1 % Cream 28.35 Gm Tube) 1 appl TOPICAL BID PRN; Protocol PRN Reason: Rash Levothyroxine Sodium (Levothyroxine Sodium 75 Mcg Tablet) 75 mcg PO DAILY@0600 [facility] Last Admin: 07/19/24 05:20 Dose: 75 mcg Documented By: SANDY Loperamide HCl (Loperamide Hcl 2 Mg Capsule) 4 mg PO Q4H PRN PRN Reason: Diarrhea Magnesium Hydroxide (Milk Of Magnesia 30 Ml Oral.Susp) 30 ml PO DAILY PRN PRN Reason: Constipation Melatonin (Melatonin 3 Mg Tablet) 6 mg PO BEDTIME PRN PRN Reason: Insomnia Metronidazole (Metronidazole 500 Mg Tablet) 500 mg PO Q8H [facility] Last Admin: 07/19/24 12:09 Dose: 500 mg Documented By: GORDON Multivitamins/Vitamin C (Multivitamin Tablet) 1 tab PO DAILY [facility] Last Admin: 07/19/24 10:09 Dose: 1 tab Documented By: GORDON Omeprazole (Omeprazole 20 Mg Capsule.) 20 mg PO DAILY@0630 [facility] Last Admin: 07/19/24 05:20 Dose: 20 mg Documented By: SANDY Ondansetron HCl (Ondansetron Hcl 4 Mg/2 Ml Vial) 4 mg IVPUSH Q8H PRN PRN Reason: Nausea and Vomiting Quetiapine Fumarate (Quetiapine Fumarate 200 Mg Tablet) 200 mg PO TID [facility] Last Admin: 07/19/24 10:09 Dose: 200 mg Documented By: GORDON Senna/Docusate Sodium (Sennosides/Docusate Sodium Tablet) 1 tab PO BEDTIME [facility] Last Admin: 07/18/24 19:52 Dose: 1 tab Documented By: SANDY Sertraline HCl (Sertraline Hcl 100 Mg Tablet) 100 mg PO DAILY [facility] Last Admin: 07/19/24 10:09 Dose: 100 mg Documented By: GORDON Simethicone (Simethicone 80 Mg Tab.Chew) 80 mg PO TID [facility] Last Admin: 07/19/24 10:09 Dose: 80 mg Documented By: GORDON Sodium Chloride (0.9 % Sodium Chloride Flush 3 Ml Syringe) 3 ml IVFLUSH QSHIFT [facility] Last Admin: 07/19/24 10:10 Dose: 3 ml Documented By: GORDON Sodium Chloride (Sodium Chloride 0.65 % Nasal 44 Ml Sprbtl) 1 spray NOSTRIL-B BID [facility] Last Admin: 07/19/24 10:10 Dose: 1 spray Documented By: GORDON Trazodone HCl (Trazodone Hcl 100 Mg Tablet) 100 mg PO BEDTIME [facility] Last Admin: 07/18/24 19:52 Dose: 100 mg Documented By: SANDY Labs 07/18/24 06:03 07/18/24 06:03 Microbiology Microbiology Results: Microbiology 07/14/24 08:47 Blood Culture - Final Blood - Venous No growth after 5 days. 07/14/24 08:02 Blood Culture - Final Blood - Venous No growth after 5 days. Assessment and Plan (1) Colitis: Status: Acute (2) COVID-19: Status: Acute Plan A 63 years old lady with PMH of HIV, syphilis, cirrhosis, hepatitis-C, PTSD, and unspecified psychosis with reported developmental delay among others who [facility] after [facility] a [facility]. Covid19 infection , acute no hypoxia supportive therapy Colitis complicated with hypovolemic\septic shock shock resolved in ICU blood cultures negative continue On Ceftriaxone and Flagyl Advance diet to regular surgical input appreciated, no acute findings Fall w physical deconditioning mechanical in nature with reported weakness PT eval rec STR ; Guardian has no authority to admit her to SNF, will need to go to court for petition ALYSSA on CKD3 resolved follow I\O and BMP Pancytopenia chronic in baseline, worse now likely with acute illness Hx HIV continue HAART DVT PPx Heparin The patient will need overnight hospital stay for Covid, colitis, fall and weakness pending safe discharge plan and guardianship petition Quality Stroke Does the patient have a stroke diagnosis?: No VTE Prior VTE?: No VTE Risk Level:: Medical - moderate - high VTE Device Contraindication: Treatment Not Indicated VTE Drug Contraindication: N/A - Med Ordered
[2024-07-19 15:44] VITALS: BP 97/52; PULSE 74; RESP 16; TEMP 36.4; O2SAT 96
[2024-07-19] MEDS: cefTRIAXone sodium 1 GM VIAL IVPUSH (17:02)
[2024-07-19 20:00] VITALS: BP 109/58; PULSE 73; RESP 18; TEMP 36.6; O2SAT 97
[2024-07-19] MEDS: Divalproex Sodium ER 500 MG TAB.ER.24H 1000 MG PO (21:49)
[2024-07-19] MEDS: traZODone HCL 100 MG TABLET PO (21:49)
[2024-07-19] MEDS: Sennosides/Docusate Sodium TABLET 1 TAB PO (21:49)
[2024-07-20] VITALS (8 sets, daily range): BP systolic 90–118; BP diastolic 49–58; PULSE 71–78; RESP 16–20; TEMP 36.1–37; O2SAT 94–96
[2024-07-20] MEDS: metroNIDAZOLE 500 MG TABLET PO ×3 (03:02→18:22)
[2024-07-20] MEDS: Levothyroxine Sodium 75 MCG TABLET PO (07:00)
[2024-07-20] MEDS: Omeprazole 20 MG CAPSULE.DR PO (07:00)
[2024-07-20] MEDS: Multivitamin TABLET 1 TAB PO (08:50)
[2024-07-20] MEDS: Simethicone 80 MG TAB.CHEW PO ×3 (08:50→19:59)
[2024-07-20] MEDS: Folic Acid 1 MG TABLET PO (08:51)
[2024-07-20] MEDS: Sertraline HCL 100 MG TABLET PO (08:51)
[2024-07-20] MEDS: QUEtiapine Fumarate 200 MG TABLET PO ×3 (08:51→19:59)
[2024-07-20] MEDS: Cyanocobalamin (Vitamin B-12) 100 MCG TABLET 50 MCG PO (08:51)
[2024-07-20] MEDS: Bictegrav/Emtricit/Tenofov Ala TABLET 1 TAB PO (08:51)
[2024-07-20] MEDS: Atorvastatin Calcium 10 MG TABLET PO (08:52)
[2024-07-20] MEDS: Divalproex Sodium ER 500 MG TAB.ER.24H PO (08:52)
[2024-07-20] MEDS: 0.9 % Sodium Chloride Flush 3 ML SYRINGE IVFLUSH ×3 (09:03→20:00)
[2024-07-20] MEDS: Sodium Chloride 0.65 % Nasal 44 ML SPRBTL 1 SPRAY NOSTRIL-B ×2 (09:14→19:59)
--- NOTE | 2024-07-20 10:43 | HO.PM.IMPN ---
Subjective Subjective Date of Service: 07/20/24 Interval History: Seen and evaluated this morning Feels little better abdominal pain improved , tolerating diet no other events overnight Review of Systems Review of Systems: Yes all other systems are reviewed and are negative Physical Exam Vital Signs: Vital Signs: Last Vital Signs Temp 98.2 F 07/20/24 07:48 Pulse 72 07/20/24 07:48 Resp 18 07/20/24 07:48 BP 92/52 L 07/20/24 07:48 Pulse Ox 94 07/20/24 07:48 O2 Del Method Room Air 07/20/24 07:48 FiO2 100 07/15/24 03:00 BMI result Body Mass Index 32.3 Const: Other: Constitutional : interactive, not in distress Cardiovascular : no JVP, no lower extremity edema Respiratory : bilateral chest movement, not in resp distress Gastrointestinal: soft, lax, no significant tenderness in LLQ, no surgical signs Skin : Warm, Dry Neurological : Alert & oriented to self only otherwise confused , No focal deficit Objective Data Active Medications Acetaminophen (Acetaminophen 325 Mg Tablet) 650 mg PO Q6H PRN PRN Reason: Pain, Mild 1-3,fever,headache Last Admin: 07/16/24 16:05 Dose: 650 mg Documented By: HU Albuterol Sulfate (Albuterol Sulfate 90 Mcg 8 Gm Inhaler) 2 puff INHALE Q4H PRN PRN Reason: Wheezing Atorvastatin Calcium (Atorvastatin Calcium 10 Mg Tablet) 10 mg PO DAILY [facility] Last Admin: 07/20/24 08:52 Dose: 10 mg Documented By: YO Bictegravir/Emtricitabine/Tenofovir (Bictegrav/Emtricit/Tenofov Ala Tablet) 1 tab PO DAILY [facility] Last Admin: 07/20/24 08:51 Dose: 1 tab Documented By: YO Calcium Carbonate (Calcium Carbonate 750 Mg Tab.Chew) 750 mg PO Q4H PRN PRN Reason: Heartburn Ceftriaxone Sodium (Ceftriaxone Sodium 1 Gm Vial) 1 gm IVPUSH Q24H [facility] Last Admin: 07/19/24 17:02 Dose: 1 gm Documented By: GORDON Cyanocobalamin (Cyanocobalamin (Vitamin B-12) 100 Mcg Tablet) 50 mcg PO DAILY [facility] Last Admin: 07/20/24 08:51 Dose: 50 mcg Documented By: YO Divalproex Sodium (Divalproex Sodium Er 500 Mg Tab.Er.24h) 500 mg PO DAILY [facility] Last Admin: 07/20/24 08:52 Dose: 500 mg Documented By: YO Divalproex Sodium (Divalproex Sodium Er 500 Mg Tab.Er.24h) 1,000 mg PO BEDTIME [facility] Last Admin: 07/19/24 21:49 Dose: 1,000 mg Documented By: VEE Docusate Sodium (Docusate Sodium 100 Mg Capsule) 100 mg PO BID PRN PRN Reason: Constipation Folic Acid (Folic Acid 1 Mg Tablet) 1 mg PO DAILY [facility] Last Admin: 07/20/24 08:51 Dose: 1 mg Documented By: YO Hydrocortisone (Hydrocortisone 1 % Cream 28.35 Gm Tube) 1 appl TOPICAL BID PRN; Protocol PRN Reason: Rash Levothyroxine Sodium (Levothyroxine Sodium 75 Mcg Tablet) 75 mcg PO DAILY@0600 [facility] Last Admin: 07/20/24 07:00 Dose: 75 mcg Documented By: VEE Loperamide HCl (Loperamide Hcl 2 Mg Capsule) 4 mg PO Q4H PRN PRN Reason: Diarrhea Magnesium Hydroxide (Milk Of Magnesia 30 Ml Oral.Susp) 30 ml PO DAILY PRN PRN Reason: Constipation Melatonin (Melatonin 3 Mg Tablet) 6 mg PO BEDTIME PRN PRN Reason: Insomnia Metronidazole (Metronidazole 500 Mg Tablet) 500 mg PO Q8H [facility] Last Admin: 07/20/24 08:50 Dose: 500 mg Documented By: YO Multivitamins/Vitamin C (Multivitamin Tablet) 1 tab PO DAILY [facility] Last Admin: 07/20/24 08:50 Dose: 1 tab Documented By: YO Omeprazole (Omeprazole 20 Mg Capsule.) 20 mg PO DAILY@0630 [facility] Last Admin: 07/20/24 07:00 Dose: 20 mg Documented By: VEE Ondansetron HCl (Ondansetron Hcl 4 Mg/2 Ml Vial) 4 mg IVPUSH Q8H PRN PRN Reason: Nausea and Vomiting Quetiapine Fumarate (Quetiapine Fumarate 200 Mg Tablet) 200 mg PO TID [facility] Last Admin: 07/20/24 08:51 Dose: 200 mg Documented By: YO Senna/Docusate Sodium (Sennosides/Docusate Sodium Tablet) 1 tab PO BEDTIME [facility] Last Admin: 07/19/24 21:49 Dose: 1 tab Documented By: VEE Sertraline HCl (Sertraline Hcl 100 Mg Tablet) 100 mg PO DAILY [facility] Last Admin: 07/20/24 08:51 Dose: 100 mg Documented By: YO Simethicone (Simethicone 80 Mg Tab.Chew) 80 mg PO TID [facility] Last Admin: 07/20/24 08:50 Dose: 80 mg Documented By: YO Sodium Chloride (0.9 % Sodium Chloride Flush 3 Ml Syringe) 3 ml IVFLUSH QSHIFT [facility] Last Admin: 07/20/24 09:03 Dose: 3 ml Documented By: YO Sodium Chloride (Sodium Chloride 0.65 % Nasal 44 Ml Sprbtl) 1 spray NOSTRIL-B BID [facility] Last Admin: 07/20/24 09:14 Dose: 1 spray Documented By: YO Trazodone HCl (Trazodone Hcl 100 Mg Tablet) 100 mg PO BEDTIME [facility] Last Admin: 07/19/24 21:49 Dose: 100 mg Documented By: VEE Labs 07/18/24 06:03 07/18/24 06:03 Microbiology Microbiology Results: Microbiology 07/14/24 08:47 Blood Culture - Final Blood - Venous No growth after 5 days. 07/14/24 08:02 Blood Culture - Final Blood - Venous No growth after 5 days. Assessment and Plan (1) Colitis: Status: Acute (2) COVID-19: Status: Acute Plan A 63 years old lady with PMH of HIV, syphilis, cirrhosis, hepatitis-C, PTSD, and unspecified psychosis with reported developmental delay among others who resides at care home presenting after sustaining a fall. Covid19 infection , acute no hypoxia supportive therapy Colitis complicated with hypovolemic\septic shock shock resolved in ICU blood cultures negative switch to PO Ceftin and Flagyl (started Abx 07/14) Advance diet to regular surgical input appreciated, no acute findings Hypotension not due to severe sepsis give bolus of fluids start Midodrine monitor BP Fall w physical deconditioning mechanical in nature with reported weakness PT eval rec STR ; Guardian has no authority to admit her to SNF, will need to go to court for petition ALYSSA on CKD3 resolved follow I\O and BMP Pancytopenia chronic in baseline, worse now likely with acute illness Hx HIV continue HAART DVT PPx Heparin The patient will need overnight hospital stay for Covid, colitis, fall and weakness pending safe discharge plan and guardianship petition Quality Stroke Does the patient have a stroke diagnosis?: No VTE Prior VTE?: No VTE Risk Level:: Medical - moderate - high VTE Device Contraindication: Treatment Not Indicated VTE Drug Contraindication: N/A - Med Ordered
[2024-07-20] MEDS: Midodrine HCl 5 MG TABLET PO ×3 (11:48→19:59)
[2024-07-20] MEDS: cefuroxime axetiL 500 MG TABLET PO (11:48)
[2024-07-20] MEDS: 0.9 % Sodium Chloride 1,000 ML 999 ML IV (11:54)
--- NOTE | 2024-07-20 15:09 | MHC.CM.PN ---
EMR reviewed and per MD rounds, pt is not medically cleared for discharge due to management of covid-19 infection, and colitis. Discharge plan is [facility], awaiting accepting facility.
[2024-07-20] MEDS: Divalproex Sodium ER 500 MG TAB.ER.24H 1000 MG PO (19:59)
[2024-07-20] MEDS: traZODone HCL 100 MG TABLET PO (19:59)
[2024-07-20] MEDS: Sennosides/Docusate Sodium TABLET 1 TAB PO (19:59)
[2024-07-21] VITALS (7 sets, daily range): BP systolic 98–118; BP diastolic 51–63; PULSE 66–81; RESP 16–20; TEMP 36.3–37; O2SAT 94–98
[2024-07-21] MEDS: cefuroxime axetiL 500 MG TABLET PO ×3 (00:19→21:13)
[2024-07-21] MEDS: metroNIDAZOLE 500 MG TABLET PO ×3 (02:50→16:49)
[2024-07-21] MEDS: Omeprazole 20 MG CAPSULE.DR PO (06:33)
[2024-07-21] MEDS: Levothyroxine Sodium 75 MCG TABLET PO (06:33)
[2024-07-21] MEDS: Midodrine HCl 5 MG TABLET PO ×3 (09:21→21:14)
[2024-07-21] MEDS: Simethicone 80 MG TAB.CHEW PO ×3 (09:21→21:13)
[2024-07-21] MEDS: Atorvastatin Calcium 10 MG TABLET PO (09:21)
[2024-07-21] MEDS: Divalproex Sodium ER 500 MG TAB.ER.24H PO (09:21)
[2024-07-21] MEDS: Sertraline HCL 100 MG TABLET PO (09:21)
[2024-07-21] MEDS: Bictegrav/Emtricit/Tenofov Ala TABLET 1 TAB PO (09:21)
[2024-07-21] MEDS: Cyanocobalamin (Vitamin B-12) 100 MCG TABLET 50 MCG PO (09:21)
[2024-07-21] MEDS: Folic Acid 1 MG TABLET PO (09:21)
[2024-07-21] MEDS: Multivitamin TABLET 1 TAB PO (09:21)
[2024-07-21] MEDS: QUEtiapine Fumarate 200 MG TABLET PO ×3 (09:21→21:13)
[2024-07-21] MEDS: 0.9 % Sodium Chloride Flush 3 ML SYRINGE IVFLUSH ×3 (09:25→21:15)
--- NOTE | 2024-07-21 09:36 | P.PNIM_ITS ---
Subjective Subjective Date of Service: 07/21/24 Interval History: Seen and evaluated this morning tolerating diet wants to get up and ambulate more no other events overnight Review of Systems Review of Systems: Yes all other systems are reviewed and are negative Physical Exam 2 Vital Signs: Vital Signs: Last Vital Signs Temp 98.6 F 07/21/24 08:00 Pulse 66 07/21/24 08:00 Resp 16 07/21/24 08:00 BP 110/63 07/21/24 08:00 Pulse Ox 94 07/21/24 08:00 O2 Del Method Room Air 07/21/24 08:00 FiO2 100 07/15/24 03:00 BMI result Body Mass Index 32.3 Const: Other: Constitutional : interactive, not in distress Cardiovascular : no JVP, no lower extremity edema Respiratory : bilateral chest movement, not in resp distress Gastrointestinal: soft, lax, no significant tenderness in LLQ, no surgical signs Skin : Warm, Dry Neurological : Alert & oriented to self and place , No focal deficit Objective Data Active Medications Acetaminophen (Acetaminophen 325 Mg Tablet) 650 mg PO Q6H PRN PRN Reason: Pain, Mild 1-3,fever,headache Last Admin: 07/16/24 16:05 Dose: 650 mg Documented By: HU Albuterol Sulfate (Albuterol Sulfate 90 Mcg 8 Gm Inhaler) 2 puff INHALE Q4H PRN PRN Reason: Wheezing Atorvastatin Calcium (Atorvastatin Calcium 10 Mg Tablet) 10 mg PO DAILY [facility] Last Admin: 07/21/24 09:21 Dose: 10 mg Documented By: MARY Bictegravir/Emtricitabine/Tenofovir (Bictegrav/Emtricit/Tenofov Ala Tablet) 1 tab PO DAILY [facility] Last Admin: 07/21/24 09:21 Dose: 1 tab Documented By: MARY Calcium Carbonate (Calcium Carbonate 750 Mg Tab.Chew) 750 mg PO Q4H PRN PRN Reason: Heartburn Cefuroxime Axetil (Cefuroxime Axetil 500 Mg Tablet) 500 mg PO Q12H [facility] Last Admin: 07/21/24 09:21 Dose: 500 mg Documented By: MARY Cyanocobalamin (Cyanocobalamin (Vitamin B-12) 100 Mcg Tablet) 50 mcg PO DAILY [facility] Last Admin: 07/21/24 09:21 Dose: 50 mcg Documented By: MARY Divalproex Sodium (Divalproex Sodium Er 500 Mg Tab.Er.24h) 500 mg PO DAILY [facility] Last Admin: 07/21/24 09:21 Dose: 500 mg Documented By: MARY Divalproex Sodium (Divalproex Sodium Er 500 Mg Tab.Er.24h) 1,000 mg PO BEDTIME [facility] Last Admin: 07/20/24 19:59 Dose: 1,000 mg Documented By: DAPHNEY Docusate Sodium (Docusate Sodium 100 Mg Capsule) 100 mg PO BID PRN PRN Reason: Constipation Folic Acid (Folic Acid 1 Mg Tablet) 1 mg PO DAILY [facility] Last Admin: 07/21/24 09:21 Dose: 1 mg Documented By: MARY Hydrocortisone (Hydrocortisone 1 % Cream 28.35 Gm Tube) 1 appl TOPICAL BID PRN; Protocol PRN Reason: Rash Levothyroxine Sodium (Levothyroxine Sodium 75 Mcg Tablet) 75 mcg PO DAILY@0600 [facility] Last Admin: 07/21/24 06:33 Dose: 75 mcg Documented By: DAPHNEY Loperamide HCl (Loperamide Hcl 2 Mg Capsule) 4 mg PO Q4H PRN PRN Reason: Diarrhea Magnesium Hydroxide (Milk Of Magnesia 30 Ml Oral.Susp) 30 ml PO DAILY PRN PRN Reason: Constipation Melatonin (Melatonin 3 Mg Tablet) 6 mg PO BEDTIME PRN PRN Reason: Insomnia Metronidazole (Metronidazole 500 Mg Tablet) 500 mg PO Q8H [facility] Last Admin: 07/21/24 09:21 Dose: 500 mg Documented By: MARY Midodrine (Midodrine Hcl 5 Mg Tablet) 5 mg PO TID [facility] Last Admin: 07/21/24 09:21 Dose: 5 mg Documented By: MARY Multivitamins/Vitamin C (Multivitamin Tablet) 1 tab PO DAILY [facility] Last Admin: 07/21/24 09:21 Dose: 1 tab Documented By: MARY Omeprazole (Omeprazole 20 Mg Capsule.) 20 mg PO DAILY@0630 [facility] Last Admin: 07/21/24 06:33 Dose: 20 mg Documented By: DAPHNEY Ondansetron HCl (Ondansetron Hcl 4 Mg/2 Ml Vial) 4 mg IVPUSH Q8H PRN PRN Reason: Nausea and Vomiting Quetiapine Fumarate (Quetiapine Fumarate 200 Mg Tablet) 200 mg PO TID [facility] Last Admin: 07/21/24 09:21 Dose: 200 mg Documented By: MARY Senna/Docusate Sodium (Sennosides/Docusate Sodium Tablet) 1 tab PO BEDTIME [facility] Last Admin: 07/20/24 19:59 Dose: 1 tab Documented By: DAPHNEY Sertraline HCl (Sertraline Hcl 100 Mg Tablet) 100 mg PO DAILY [facility] Last Admin: 07/21/24 09:21 Dose: 100 mg Documented By: MARY Simethicone (Simethicone 80 Mg Tab.Chew) 80 mg PO TID [facility] Last Admin: 07/21/24 09:21 Dose: 80 mg Documented By: MARY Sodium Chloride (0.9 % Sodium Chloride Flush 3 Ml Syringe) 3 ml IVFLUSH QSHIFT [facility] Last Admin: 07/21/24 09:25 Dose: 3 ml Documented By: MARY Sodium Chloride (Sodium Chloride 0.65 % Nasal 44 Ml Sprbtl) 1 spray NOSTRIL-B BID [facility] Last Admin: 07/20/24 19:59 Dose: 1 spray Documented By: DAPHNEY Trazodone HCl (Trazodone Hcl 100 Mg Tablet) 100 mg PO BEDTIME [facility] Last Admin: 07/20/24 19:59 Dose: 100 mg Documented By: DAPHNEY Labs 07/18/24 06:03 07/18/24 06:03 Assessment and Plan (1) Colitis: Status: Acute (2) COVID-19: Status: Acute Plan A 63 years old lady with PMH of HIV, syphilis, cirrhosis, hepatitis-C, PTSD, and unspecified psychosis with reported developmental delay among others who resides at residential presenting after sustaining a fall. Covid19 infection , acute no hypoxia supportive therapy will retest to see if cleared Colitis complicated with hypovolemic\septic shock shock resolved in ICU blood cultures negative switch to PO Ceftin and Flagyl (started Abx 07/14) Advance diet to regular surgical input appreciated, no acute findings Hypotension not due to severe sepsis give bolus of fluids start Midodrine monitor BP Fall w physical deconditioning mechanical in nature with reported weakness PT eval rec STR ; Guardian has no authority to admit her to SNF, will need to go to court for petition ALYSSA on CKD3 resolved follow I\O and BMP Pancytopenia chronic in baseline, worse now likely with acute illness Hx HIV continue HAART DVT PPx Heparin The patient will need overnight hospital stay for Covid, colitis, fall and weakness pending safe discharge plan and guardianship petition Quality Stroke Does the patient have a stroke diagnosis?: No VTE Prior VTE?: No VTE Risk Level:: Medical - moderate - high VTE Device Contraindication: Treatment Not Indicated VTE Drug Contraindication: N/A - Med Ordered
--- NOTE | 2024-07-21 10:14 | HO.WOUND ---
Wound Consult: Initial 63yr old?female admitted to [facility] on 07/14/24 - See progress notes and H&P for detailed history.? Wound consult placed for MASD to buttock.? Patient agreeable to assessment and photo documentation.? Patient reports tenderness to bruising sites. She is noted for bruising throughout her arms back, sacrum and buttock, she reports a fall prior to admission. The bruises are stable and intact they are not pressure related and do not need topical intervention at this time. The Perineal and intergluteal area is noted for mild MASD - light pink moist tissue with areas of mirrored hyperpigmentation noted. Barrier cream already in use - recommend continued use no other topical interventions needed at this time. Recommendations: 1. Turn and Reposition every 2 hours and as needed for patient comfort.? Use pillows or wedges to support off loading positions. 2. Off Load all bony prominences with use of pillows.? Apply Preventative foams where needed. ? 3. Monitor for incontinence and moisture control, use barrier creams when needed for prevention and treatment. 4. Provide adequate and supplemental nutrition.? 5. When applicable maintain blood glucose levels per Providers order. 6. Perineal and Buttock - Routine cleansing, pat dry. Apply barrier cream twice daily and PRN for episodes of incontinence. Re-consult wound care Nurse for wound deterioration or wound changes.
[2024-07-21 10:30] LABS: COVID-19 Test Negative (Negative); IDNOW Serial# 58CA691E
--- NOTE | 2024-07-21 16:00 | MHC.CM.PN ---
Pt is medically ready for discharge pending, STR bed offer, and submitting for intent to admit per guardianship. Repeat covid test is now negative. [facility] has offered the pt a bed, once authorization to admit is obtained. CM director notified, and has sent this CM the notice of intent to admit which will need to be signed by and the pts guardian. This CM placed a call to kelsea Lee ([phone]), voicemail was left, awaiting return call. This CM received a phone call from the pts group therapy counselor and DOMINIQUE, this CM explained that we are seeking STR prior to her returning to the nursing home. [facility] DON states she will try to contact the guardian Lily and will give her our number and ask her to call us. CM directer updated.
[2024-07-21] MEDS: Sennosides/Docusate Sodium TABLET 1 TAB PO (21:13)
[2024-07-21] MEDS: traZODone HCL 100 MG TABLET PO (21:13)
[2024-07-21] MEDS: Divalproex Sodium ER 500 MG TAB.ER.24H 1000 MG PO (21:14)
[2024-07-22] VITALS: BP 99/51; PULSE 67; TEMP 36.2; O2SAT 96
[2024-07-22] MEDS: metroNIDAZOLE 500 MG TABLET PO ×3 (01:48→16:32)
[2024-07-22 03:36] VITALS: BP 107/55; PULSE 71; RESP 19; TEMP 36.3; O2SAT 96
[2024-07-22] MEDS: Omeprazole 20 MG CAPSULE.DR PO (06:13)
[2024-07-22] MEDS: Levothyroxine Sodium 75 MCG TABLET PO (06:13)
[2024-07-22 08:00] VITALS: BP 133/60; PULSE 74; RESP 18; TEMP 36.6; O2SAT 96
--- NOTE | 2024-07-22 08:50 | MHC.CM.PN ---
Addendum entered by Celeste Heaton 07/22/24 13:38: This CM spoke to the pts guardikarl Bautista and reviewed the STR bed offer from [facility] with her, Lily accepts the bed offer. The notice of intent to admit has been emailed to Lily, awaiting her signature and return. Addendum entered by Celeste Heaton 07/22/24 11:21: Bed offer received from [facility], this CM placed a call to pts kelsea Bautista to notify, awaiting call back. Will submit intent to admit once signed by kelsea. Original Note: This CM received a phone call from pts kelsea Bautista, per Lily she would prefer the pt to go to [facility] or [facility] as they have more experience caring for pts similar to Adrianne. Referral sent to each requested facility. Lily will also be faxing another copy of the guardianship to us.
[2024-07-22] MEDS: 0.9 % Sodium Chloride Flush 3 ML SYRINGE IVFLUSH ×3 (09:18→21:47)
[2024-07-22] MEDS: Atorvastatin Calcium 10 MG TABLET PO (09:19)
[2024-07-22] MEDS: Multivitamin TABLET 1 TAB PO (09:19)
[2024-07-22] MEDS: cefuroxime axetiL 500 MG TABLET PO ×2 (09:19→21:38)
[2024-07-22] MEDS: Midodrine HCl 5 MG TABLET PO ×3 (09:19→21:38)
[2024-07-22] MEDS: Bictegrav/Emtricit/Tenofov Ala TABLET 1 TAB PO (09:19)
[2024-07-22] MEDS: Cyanocobalamin (Vitamin B-12) 100 MCG TABLET 50 MCG PO (09:20)
[2024-07-22] MEDS: QUEtiapine Fumarate 200 MG TABLET PO ×3 (09:20→21:38)
[2024-07-22] MEDS: Sertraline HCL 100 MG TABLET PO (09:21)
[2024-07-22] MEDS: Folic Acid 1 MG TABLET PO (09:21)
[2024-07-22] MEDS: Simethicone 80 MG TAB.CHEW PO ×3 (09:24→21:38)
[2024-07-22] MEDS: Divalproex Sodium ER 500 MG TAB.ER.24H PO (10:40)
[2024-07-22] MEDS: Sodium Chloride 0.65 % Nasal 44 ML SPRBTL 1 SPRAY NOSTRIL-B (10:45)
[2024-07-22 12:00] VITALS: BP 92/50; PULSE 82; RESP 18; TEMP 36.4; O2SAT 99
--- NOTE | 2024-07-22 12:47 | P.PNIM_ITS ---
Subjective Subjective Date of Service: 07/22/24 Interval History: Complaining of being tired lying in bed. Tolerating diet no nausea, no vomiting no diarrhea, complaining of left lower quadrant discomfort. No acute events overnight Review of Systems All other system reviewed and are negative. Physical Exam 2 Vital Signs: Vital Signs: Last Vital Signs Temp 97.6 F 07/22/24 12:00 Pulse 82 07/22/24 12:00 Resp 18 07/22/24 12:00 BP 92/50 L 07/22/24 12:00 Pulse Ox 99 07/22/24 12:00 O2 Del Method Room Air 07/22/24 12:00 FiO2 100 07/15/24 03:00 BMI result Body Mass Index 32.3 Const: Other: General resting comfortably in no acute distress. Moist mucous membrane Neck no JVD. CVS regular rate rhythm, Respiratory lungs clear to auscultation, no respiratory distress, no wheeze, no rhonchi. Gastrointestinal abdomen soft, bowel sounds audible, mild left lower quadrant discomfort to palpation, no guarding , no rigidity. Extremities no edema. Neuro non focal Skin warm and dry. Objective Data Active Medications Acetaminophen (Acetaminophen 325 Mg Tablet) 650 mg PO Q6H PRN PRN Reason: Pain, Mild 1-3,fever,headache Last Admin: 07/16/24 16:05 Dose: 650 mg Documented By: HU Albuterol Sulfate (Albuterol Sulfate 90 Mcg 8 Gm Inhaler) 2 puff INHALE Q4H PRN PRN Reason: Wheezing Atorvastatin Calcium (Atorvastatin Calcium 10 Mg Tablet) 10 mg PO DAILY [facility] Last Admin: 07/22/24 09:19 Dose: 10 mg Documented By: JIM Bictegravir/Emtricitabine/Tenofovir (Bictegrav/Emtricit/Tenofov Ala Tablet) 1 tab PO DAILY [facility] Last Admin: 07/22/24 09:19 Dose: 1 tab Documented By: JIM Calcium Carbonate (Calcium Carbonate 750 Mg Tab.Chew) 750 mg PO Q4H PRN PRN Reason: Heartburn Cefuroxime Axetil (Cefuroxime Axetil 500 Mg Tablet) 500 mg PO Q12H [facility] Last Admin: 07/22/24 09:19 Dose: 500 mg Documented By: JIM Cyanocobalamin (Cyanocobalamin (Vitamin B-12) 100 Mcg Tablet) 50 mcg PO DAILY [facility] Last Admin: 07/22/24 09:20 Dose: 50 mcg Documented By: JIM Divalproex Sodium (Divalproex Sodium Er 500 Mg Tab.Er.24h) 500 mg PO DAILY [facility] Last Admin: 07/22/24 10:40 Dose: 500 mg Documented By: JIM Divalproex Sodium (Divalproex Sodium Er 500 Mg Tab.Er.24h) 1,000 mg PO BEDTIME [facility] Last Admin: 07/21/24 21:14 Dose: 1,000 mg Documented By: AKI Docusate Sodium (Docusate Sodium 100 Mg Capsule) 100 mg PO BID PRN PRN Reason: Constipation Folic Acid (Folic Acid 1 Mg Tablet) 1 mg PO DAILY [facility] Last Admin: 07/22/24 09:21 Dose: 1 mg Documented By: JIM Hydrocortisone (Hydrocortisone 1 % Cream 28.35 Gm Tube) 1 appl TOPICAL BID PRN; Protocol PRN Reason: Rash Levothyroxine Sodium (Levothyroxine Sodium 75 Mcg Tablet) 75 mcg PO DAILY@0600 [facility] Last Admin: 07/22/24 06:13 Dose: 75 mcg Documented By: AKI Loperamide HCl (Loperamide Hcl 2 Mg Capsule) 4 mg PO Q4H PRN PRN Reason: Diarrhea Magnesium Hydroxide (Milk Of Magnesia 30 Ml Oral.Susp) 30 ml PO DAILY PRN PRN Reason: Constipation Melatonin (Melatonin 3 Mg Tablet) 6 mg PO BEDTIME PRN PRN Reason: Insomnia Metronidazole (Metronidazole 500 Mg Tablet) 500 mg PO Q8H [facility] Last Admin: 07/22/24 09:21 Dose: 500 mg Documented By: JIM Midodrine (Midodrine Hcl 5 Mg Tablet) 5 mg PO TID [facility] Last Admin: 07/22/24 09:19 Dose: 5 mg Documented By: JIM Multivitamins/Vitamin C (Multivitamin Tablet) 1 tab PO DAILY [facility] Last Admin: 07/22/24 09:19 Dose: 1 tab Documented By: JIM Omeprazole (Omeprazole 20 Mg Capsule.) 20 mg PO DAILY@0630 [facility] Last Admin: 07/22/24 06:13 Dose: 20 mg Documented By: AKI Ondansetron HCl (Ondansetron Hcl 4 Mg/2 Ml Vial) 4 mg IVPUSH Q8H PRN PRN Reason: Nausea and Vomiting Quetiapine Fumarate (Quetiapine Fumarate 200 Mg Tablet) 200 mg PO TID [facility] Last Admin: 07/22/24 09:20 Dose: 200 mg Documented By: JIM Senna/Docusate Sodium (Sennosides/Docusate Sodium Tablet) 1 tab PO BEDTIME [facility] Last Admin: 07/21/24 21:13 Dose: 1 tab Documented By: AKI Sertraline HCl (Sertraline Hcl 100 Mg Tablet) 100 mg PO DAILY [facility] Last Admin: 07/22/24 09:21 Dose: 100 mg Documented By: JIM Simethicone (Simethicone 80 Mg Tab.Chew) 80 mg PO TID [facility] Last Admin: 07/22/24 09:24 Dose: 80 mg Documented By: JIM Sodium Chloride (0.9 % Sodium Chloride Flush 3 Ml Syringe) 3 ml IVFLUSH QSHIFT [facility] Last Admin: 07/22/24 09:18 Dose: 3 ml Documented By: JIM Sodium Chloride (Sodium Chloride 0.65 % Nasal 44 Ml Sprbtl) 1 spray NOSTRIL-B BID [facility] Last Admin: 07/22/24 10:45 Dose: 1 spray Documented By: JIM Trazodone HCl (Trazodone Hcl 100 Mg Tablet) 100 mg PO BEDTIME [facility] Last Admin: 07/21/24 21:13 Dose: 100 mg Documented By: AKI Labs 07/18/24 06:03 07/18/24 06:03 Assessment and Plan (1) Colitis: Status: Acute (2) Abdominal pain: Status: Acute (3) COVID-19: Status: Acute Plan 63 years old lady with PMH of HIV, syphilis, cirrhosis, hepatitis-C, PTSD, and unspecified psychosis with reported developmental delay among others who resides at custodial presenting after sustaining a fall. Acute Covid19 infection , no hypoxia , continue supportive care, repeat test negative Acute Colitis complicated with hypovolemic\septic shock shock resolved in ICU blood cultures negative on PO Ceftin and Flagyl (started Abx 07/14), tolerating diet surgical input appreciated, no acute findings Hypotension not due to severe sepsis , status post IV fluid continue midodrine stable BP Fall w physical deconditioning mechanical in nature with reported weakness PT eval rec STR ; Guardian has no authority to admit her to SNF, will need to go to court for petition ALYSSA on CKD3 resolved follow I\O and BMP Pancytopenia chronic , worse now likely with acute illness , no acute bleeding Hx HIV continue HAART DVT PPx Heparin The patient will need overnight hospital stay for Covid, colitis, fall and weakness pending safe discharge plan . Quality Stroke Does the patient have a stroke diagnosis?: No VTE Prior VTE?: No VTE Risk Level:: Medical - moderate - high VTE Device Contraindication: Treatment Not Indicated VTE Drug Contraindication: N/A - Med Ordered
[2024-07-22] MEDS: Loperamide HCl 2 MG CAPSULE 4 MG PO (13:48)
[2024-07-22 16:00] VITALS: BP 135/64; PULSE 68; RESP 18; TEMP 36.2; O2SAT 98
[2024-07-22 20:00] VITALS: BP 100/70; PULSE 73; RESP 12; TEMP 36.5; O2SAT 97
[2024-07-22] MEDS: Divalproex Sodium ER 500 MG TAB.ER.24H 1000 MG PO (21:38)
[2024-07-22] MEDS: Sennosides/Docusate Sodium TABLET 1 TAB PO (21:39)
[2024-07-22] MEDS: traZODone HCL 100 MG TABLET PO (21:39)
[2024-07-23] VITALS: BP 101/58; PULSE 70; RESP 14; TEMP 36.8; O2SAT 95
[2024-07-23] MEDS: metroNIDAZOLE 500 MG TABLET PO (02:30)
[2024-07-23 04:00] VITALS: BP 96/57; PULSE 69; RESP 18; TEMP 36.1; O2SAT 93
[2024-07-23] MEDS: Levothyroxine Sodium 75 MCG TABLET PO (05:04)
[2024-07-23] MEDS: Omeprazole 20 MG CAPSULE.DR PO (05:04)
[2024-07-23 08:00] VITALS: BP 107/56; PULSE 68; RESP 17; TEMP 36.1; O2SAT 94
--- NOTE | 2024-07-23 09:24 | MHC.CM.PN ---
Addendum entered by Hilary Ewing RN 07/23/24 15:53: IMM DELIVERED TO GUARDIAN VIA EMAIL [email or web address] on 07/[email or web address]/23 PER EMAIL DISCUSSION, CM TO SEND MESSAGE IN GROUP EMAIL REGARDING DC TIME ONCE ARRANGED. Addendum entered by Hilary Ewing RN 07/23/24 15:46: NOTICE OF INTENT TO ADMIT RETURNED SIGNED FROM GUARDIAN And SIGNED BY HOSPITALIST, PER CM DIRECTOR HAS BEEN SUBMITTED TO [facility] AT 2:41PM, SNF UPDATED AND CM WILL FOLLOW UP IN AM TO ARRANGE DC TIME. Original Note: EMR REVIEWED, [facility] CAN TAKE PT EARLY TODAY PER LIAISON, CM STILL AWAITING GUARDIAN TO SIGN INTENT TO ADMIT PAPERWORK, CM ATTEMPTED TO CONTACT PT'S GUARDIAN YURI [phone] SINCE 8:30AM, CALLS GOING DIRECTLY TO VOICEMAIL, DETAILED MESSAGE LEFT HOWEVER NO RESPONSE, CM CONTACTED PT'S RAILROAD BRAKEMAN MEENA AT 9:15AM [phone], MEENA HAS NO OTHER CONTACT NUMBERS HOWEVER CALLED CM'S BACK AT 9:25AM AND WILL SEND GROUP EMAIL W/HER, NURSING AND GUARDIAN TO THIS CM, CM WILL AWAIT RECEIPT OF EMAIL AND WILL ATTACH INTENT TO ADMIT ONCE EMAIL RECEIVED.
[2024-07-23] MEDS: QUEtiapine Fumarate 200 MG TABLET PO ×3 (09:50→20:31)
[2024-07-23] MEDS: Midodrine HCl 5 MG TABLET PO ×3 (09:50→20:32)
[2024-07-23] MEDS: Sertraline HCL 100 MG TABLET PO (09:50)
[2024-07-23] MEDS: 0.9 % Sodium Chloride Flush 3 ML SYRINGE IVFLUSH ×3 (09:50→20:33)
[2024-07-23] MEDS: Divalproex Sodium ER 500 MG TAB.ER.24H PO (09:50)
[2024-07-23] MEDS: Folic Acid 1 MG TABLET PO (09:50)
[2024-07-23] MEDS: Atorvastatin Calcium 10 MG TABLET PO (09:50)
[2024-07-23] MEDS: Acetaminophen 325 MG TABLET 650 MG PO (09:50)
[2024-07-23] MEDS: Bictegrav/Emtricit/Tenofov Ala TABLET 1 TAB PO (09:50)
[2024-07-23] MEDS: Multivitamin TABLET 1 TAB PO (09:50)
[2024-07-23] MEDS: Simethicone 80 MG TAB.CHEW PO ×3 (09:50→20:31)
[2024-07-23] MEDS: Cyanocobalamin (Vitamin B-12) 100 MCG TABLET 50 MCG PO (09:50)
[2024-07-23] MEDS: Loperamide HCl 2 MG CAPSULE 4 MG PO ×2 (09:51→14:44)
[2024-07-23] MEDS: Sodium Chloride 0.65 % Nasal 44 ML SPRBTL 1 SPRAY NOSTRIL-B ×2 (09:59→20:36)
[2024-07-23 11:42] VITALS: BP 105/59; PULSE 70; RESP 18; TEMP 36.3; O2SAT 97
--- NOTE | 2024-07-23 12:15 | P.PNIM_ITS ---
Subjective Subjective Date of Service: 07/23/24 Interval History: Being followed for colitis on by mouth antibiotics Complaining of mild abdominal discomfort, noted to have loose bowel movements brown-colored, tolerating diet with no nausea no vomiting. Complaining of discomfort due to being in bed, no acute issues overnight. Review of Systems All other system reviewed and are negative. Constitutional Constitutional: Reports no additional constitutional complaints, Reports anorexia, Denies body ache(s) and Denies chills Eyes Eyes: Denies exophthalmos and Denies change in vision ENT Ears, Nose, Mouth, and Throat: Denies Normal hearing present, Denies bleeding gums and Denies change in voice Cardiovascular Cardiovascular: Reports no additional cardiovascular complaints, Denies Abdominal Cramping after Meds, Denies Abdominal Distension and Denies acrocyanosis Respiratory Respiratory: Reports no additional respiratory complaints, Denies change in phlegm color, Denies chest congestion and Denies cough Gastrointestinal Gastrointestinal: Denies abdominal pain, Denies belching and Denies melena Musculoskeletal Musculoskeletal: Denies back pain, Reports myalgias and Denies atrophy Neurologic Neurologic: Denies Normal hearing present, Denies Neuro-related abnormal movements and Denies Abnormal speech present Physical Exam 2 Vital Signs: Vital Signs: Last Vital Signs Temp 97.4 F 07/23/24 11:42 Pulse 70 07/23/24 11:42 Resp 18 07/23/24 11:42 BP 105/59 L 07/23/24 11:42 Pulse Ox 97 07/23/24 11:42 O2 Del Method Room Air 07/23/24 11:42 FiO2 100 07/15/24 03:00 BMI result Body Mass Index 32.3 Const: Other: General resting comfortably in no acute distress. Moist mucous membrane Neck no JVD. CVS regular rate rhythm, Respiratory lungs clear to auscultation, no respiratory distress, no wheeze, no rhonchi. Gastrointestinal abdomen soft, bowel sounds audible, mild LLQ discomfort, no guarding , no rigidity. Extremities no edema. Neuro non focal Skin warm and dry. Neuro: Cranial nerves: No Normal hearing present Speech: No Abnormal speech present Objective Data Active Medications Acetaminophen (Acetaminophen 325 Mg Tablet) 650 mg PO Q6H PRN PRN Reason: Pain, Mild 1-3,fever,headache Last Admin: 07/23/24 09:50 Dose: 650 mg Documented By: LUCRECIA Albuterol Sulfate (Albuterol Sulfate 90 Mcg 8 Gm Inhaler) 2 puff INHALE Q4H PRN PRN Reason: Wheezing Atorvastatin Calcium (Atorvastatin Calcium 10 Mg Tablet) 10 mg PO DAILY [facility] Last Admin: 07/23/24 09:50 Dose: 10 mg Documented By: LUCRECIA Bictegravir/Emtricitabine/Tenofovir (Bictegrav/Emtricit/Tenofov Ala Tablet) 1 tab PO DAILY [facility] Last Admin: 07/23/24 09:50 Dose: 1 tab Documented By: LUCRECIA Calcium Carbonate (Calcium Carbonate 750 Mg Tab.Chew) 750 mg PO Q4H PRN PRN Reason: Heartburn Cyanocobalamin (Cyanocobalamin (Vitamin B-12) 100 Mcg Tablet) 50 mcg PO DAILY [facility] Last Admin: 07/23/24 09:50 Dose: 50 mcg Documented By: LUCRECIA Divalproex Sodium (Divalproex Sodium Er 500 Mg Tab.Er.24h) 500 mg PO DAILY [facility] Last Admin: 07/23/24 09:50 Dose: 500 mg Documented By: LUCRECIA Divalproex Sodium (Divalproex Sodium Er 500 Mg Tab.Er.24h) 1,000 mg PO BEDTIME [facility] Last Admin: 07/22/24 21:38 Dose: 1,000 mg Documented By: PHILLIP Docusate Sodium (Docusate Sodium 100 Mg Capsule) 100 mg PO BID PRN PRN Reason: Constipation Folic Acid (Folic Acid 1 Mg Tablet) 1 mg PO DAILY [facility] Last Admin: 07/23/24 09:50 Dose: 1 mg Documented By: LUCRECIA Hydrocortisone (Hydrocortisone 1 % Cream 28.35 Gm Tube) 1 appl TOPICAL BID PRN; Protocol PRN Reason: Rash Levothyroxine Sodium (Levothyroxine Sodium 75 Mcg Tablet) 75 mcg PO DAILY@0600 [facility] Last Admin: 07/23/24 05:04 Dose: 75 mcg Documented By: PHILLIP Loperamide HCl (Loperamide Hcl 2 Mg Capsule) 4 mg PO Q4H PRN PRN Reason: Diarrhea Last Admin: 07/23/24 09:51 Dose: 4 mg Documented By: LUCRECIA Magnesium Hydroxide (Milk Of Magnesia 30 Ml Oral.Susp) 30 ml PO DAILY PRN PRN Reason: Constipation Melatonin (Melatonin 3 Mg Tablet) 6 mg PO BEDTIME PRN PRN Reason: Insomnia Midodrine (Midodrine Hcl 5 Mg Tablet) 5 mg PO TID [facility] Last Admin: 07/23/24 09:50 Dose: 5 mg Documented By: LUCRECIA Multivitamins/Vitamin C (Multivitamin Tablet) 1 tab PO DAILY [facility] Last Admin: 07/23/24 09:50 Dose: 1 tab Documented By: LUCRECIA Omeprazole (Omeprazole 20 Mg Capsule.Dr) 20 mg PO DAILY@0630 [facility] Last Admin: 07/23/24 05:04 Dose: 20 mg Documented By: PHILLIP Ondansetron HCl (Ondansetron Hcl 4 Mg/2 Ml Vial) 4 mg IVPUSH Q8H PRN PRN Reason: Nausea and Vomiting Quetiapine Fumarate (Quetiapine Fumarate 200 Mg Tablet) 200 mg PO TID [facility] Last Admin: 07/23/24 09:50 Dose: 200 mg Documented By: LUCRECIA Senna/Docusate Sodium (Sennosides/Docusate Sodium Tablet) 1 tab PO BEDTIME [facility] Last Admin: 07/23/24 10:18 Dose: Not Given Documented By: LUCRECIA Non-Admin Reason: diarrhea Sertraline HCl (Sertraline Hcl 100 Mg Tablet) 100 mg PO DAILY [facility] Last Admin: 07/23/24 09:50 Dose: 100 mg Documented By: LUCRECIA Simethicone (Simethicone 80 Mg Tab.Chew) 80 mg PO TID [facility] Last Admin: 07/23/24 09:50 Dose: 80 mg Documented By: LUCRECIA Sodium Chloride (0.9 % Sodium Chloride Flush 3 Ml Syringe) 3 ml IVFLUSH QSHIFT [facility] Last Admin: 07/23/24 09:50 Dose: 3 ml Documented By: LUCRECIA Sodium Chloride (Sodium Chloride 0.65 % Nasal 44 Ml Sprbtl) 1 spray NOSTRIL-B BID [facility] Last Admin: 07/23/24 09:59 Dose: 1 spray Documented By: LUCRECIA Trazodone HCl (Trazodone Hcl 100 Mg Tablet) 100 mg PO BEDTIME [facility] Last Admin: 07/22/24 21:39 Dose: 100 mg Documented By: PHILLIP Labs 07/18/24 06:03 07/18/24 06:03 Assessment and Plan (1) Colitis: Status: Acute Plan 63 years old lady with PMH of HIV, syphilis, cirrhosis, hepatitis-C, PTSD, and unspecified psychosis with reported developmental delay among others who resides at residential presenting after sustaining a fall. Acute Covid19 infection , no hypoxia , continue supportive care, repeat test negative Acute Colitis complicated with hypovolemic\septic shock shock resolved in ICU blood cultures negative on PO Ceftin and Flagyl (started Abx 07/14), tolerating diet, will DC antibiotics surgical input appreciated, no acute findings Hypotension not due to severe sepsis , status post IV fluid continue midodrine stable BP Fall w physical deconditioning mechanical in nature with reported weakness PT eval rec STR just waiting for Guardian has no authority to admit her to SNF, will need to go to court for petition Will need rehab for less than 30 days ALYSSA on CKD3 resolved follow I\O and BMP Pancytopenia chronic , worse now likely with acute illness , no acute bleeding Hx HIV continue HAART DVT PPx Heparin The patient will need continued in hospital stay for Covid, colitis, fall and weakness pending safe discharge plan . Quality Stroke Does the patient have a stroke diagnosis?: No VTE Prior VTE?: No VTE Risk Level:: Medical - moderate - high VTE Device Contraindication: Treatment Not Indicated VTE Drug Contraindication: N/A - Med Ordered
[2024-07-23 15:31] VITALS: BP 98/58; PULSE 69; RESP 17; TEMP 36.2; O2SAT 95
[2024-07-23 19:49] VITALS: BP 93/46; PULSE 76; RESP 18; TEMP 36.3; O2SAT 96
[2024-07-23] MEDS: traZODone HCL 100 MG TABLET PO (20:31)
[2024-07-23] MEDS: Divalproex Sodium ER 500 MG TAB.ER.24H 1000 MG PO (20:31)
[2024-07-24] VITALS: BP 99/47; PULSE 68; RESP 16; TEMP 36.4; O2SAT 95
[2024-07-24 03:46] VITALS: BP 90/52; PULSE 66; RESP 18; TEMP 36.3; O2SAT 95
[2024-07-24] MEDS: Levothyroxine Sodium 75 MCG TABLET PO (05:04)
[2024-07-24] MEDS: Omeprazole 20 MG CAPSULE.DR PO (05:04)
[2024-07-24 07:47] VITALS: BP 110/68; PULSE 68; RESP 18; TEMP 36.3; O2SAT 96
[2024-07-24] MEDS: Bictegrav/Emtricit/Tenofov Ala TABLET 1 TAB PO (09:07)
[2024-07-24] MEDS: 0.9 % Sodium Chloride Flush 3 ML SYRINGE IVFLUSH (09:07)
[2024-07-24 09:08] VITALS: BP 110/68
[2024-07-24] MEDS: QUEtiapine Fumarate 200 MG TABLET PO (09:08)
[2024-07-24] MEDS: Divalproex Sodium ER 500 MG TAB.ER.24H PO (09:08)
[2024-07-24] MEDS: Simethicone 80 MG TAB.CHEW PO (09:08)
[2024-07-24] MEDS: Folic Acid 1 MG TABLET PO (09:08)
[2024-07-24] MEDS: Sertraline HCL 100 MG TABLET PO (09:08)
[2024-07-24] MEDS: Midodrine HCl 5 MG TABLET PO (09:08)
[2024-07-24] MEDS: Multivitamin TABLET 1 TAB PO (09:08)
[2024-07-24] MEDS: Cyanocobalamin (Vitamin B-12) 100 MCG TABLET 50 MCG PO (09:08)
[2024-07-24] MEDS: Atorvastatin Calcium 10 MG TABLET PO (09:08)
[2024-07-24] MEDS: Sodium Chloride 0.65 % Nasal 44 ML SPRBTL 1 SPRAY NOSTRIL-B (09:12)
--- NOTE | 2024-07-24 10:27 | PM.DS ---
DS: Providers Provider Date of Service: 07/24/24 Date of admission: 07/14/24 11:25 Date of discharge: 07/24/24 Primary care physician: Nina Lindsay NP Consults: 07/14/24 13:21 Consult to General Surgery Routine Consulting Provider: [facility] General Surgeons Reason for consultation: abdominal pain w abnormal CT scan 07/17/24 12:58 Consult to Wound Care Routine Reason for consultation: MASD Has provider been notified: Yes DS: Diagnosis Discharge Diagnosis (1) Colitis: Status: Acute DS: Summary Hospital Course Hospital Course: History of presenting illness: Date of Service: 07/14/24 Chief Complaint: Fall, Covid A 63 years old lady with PMH of HIV, syphilis, cirrhosis, hepatitis-C, PTSD, and unspecified psychosis with reported developmental delay among others who resides at longterm presenting after sustaining a fall. The patient very poor historian and it seems like she was at [facility] yesterday for biopsy for ASCUS anal canal. No chest pain, palpitations, SOB, nausea, vomiting, diarrhea or urinary symptoms. In ED found to have Leukocytosis, Elevated Lactic acid and kidney function with evidence of Covid infection. CT Head, neck and abdomen reporting no acute trauma related injuries or acute findings but Nonspecific small amount of fluid in the extraperitoneal extravesical lower pelvis.Focal areas of segmental wall thickening versus peristalsis, right hemicolon. Inflammatory versus infectious processes versus malignancy should be considered. Will be admitted for further evaluation and management. Hospital course: 63 years old lady with PMH of HIV, syphilis, cirrhosis, hepatitis-C, PTSD, and unspecified psychosis with reported developmental delay among others resident of longterm presented to [facility] ED after sustaining a fall and diagnosed to have acute COVID infection, acute kidney injury and colitis. Acute Covid19 infection , patient remained hypoxic treated with supportive care repeat test returned back negative. Acute Colitis complicated with hypovolemic\septic shock , was transferred to ICU treated with pressors and broad-spectrum antibiotic, patient hemodynamically stabilized returned back to floor and remained stable since blood cultures negative, finished course of antibiotic with Ceftin and Flagyl, tolerating diet with no nausea, vomiting or diarrhea has stable intermittent mild abdominal discomfort, recommend outpatient follow-up with PCP Hypotension stable, continue midodrine and follow BP Fall w physical deconditioning mechanical in nature with reported weakness,PT eval rec STR therefore being transferred to rehab facility for less than 30 days ALYSSA on CKD3 resolved with IV hydration, recommend by mouth fluids Pancytopenia chronic , stable with history of HIV/hepatitis-C, continue heart treatment. Time Attestation Discharge Coordination Time (in mins): 40 Quality: Safe Use of Opioids Does Pt have an Active Cancer Diagnosis on the Problem List?: No Quality: Stroke Does the patient have a stroke diagnosis?: No Physical Exam Vital Signs: Vital Signs: Last Vital Signs Temp 97.3 F 07/24/24 07:47 Pulse 68 07/24/24 07:47 Resp 18 07/24/24 07:47 BP 110/68 07/24/24 09:08 Pulse Ox 96 07/24/24 07:47 O2 Del Method Room Air 07/24/24 07:47 FiO2 100 07/15/24 03:00 BMI result Body Mass Index 32.3 Const: Other: General resting comfortably in no acute distress. Moist mucous membrane Neck no JVD. CVS regular rate rhythm, Respiratory lungs clear to auscultation, no respiratory distress, no wheeze, no rhonchi. Gastrointestinal abdomen soft, bowel sounds audible, no guarding , no rigidity. Extremities no edema. Neuro non focal Skin warm and dry. Discharge Plan Discharge Anticipated Discharge Date/Time: 07/24/24 08:30 Patient Disposition: Xfer SNF Discharge Diagnosis: Acute colitis complicated with hypovolemic/septic shock Referrals: [facility] [Outside] - 1 Day (SHORT TERM REHAB) Nina Lindsay [facility] [Primary Care Provider] - 1 Week Discharge Medications: Continued acetaminophen 500 mg Tablet 500 mg PO Q6H PRN (Reason: Pain) folic acid 1 mg Tablet 1 mg PO DAILY Saline Nasal 0.65 % Aerosol,[place] 1 spray INTRANASAL BID calcium carbonate-vitamin D3 [Calcium 600 + D(3)] 600 mg(1,500mg) -400 unit Tablet 1 tab PO BID Biktarvy 50-200-25 mg Tablet 1 tab PO DAILY docusate sodium 100 mg capsule 100 mg PO BID PRN (Reason: Constipation) oxycodone 5 mg tablet 5 mg PO Q6H PRN (Reason: Pain) chlorhexidine gluconate 0.12 % mouthwash 15 ml PO BID multivitamin with folic acid [High Potency Multivitamin] 400 mcg tablet 1 tab PO DAILY loperamide 2 mg Tablet 4 mg PO Q4H PRN (Reason: Diarrhea) Rx Instructions: administer after each loose stool until symptoms controlled; do not exceed 8 mg per 24 hrs Vitamin B-12 50 mcg Tablet 50 mcg PO DAILY diazepam [Valium] 5 mg Tablet 5 mg PO Q8H PRN (Reason: Anxiety) Artificial Tears (PF) [place] 1 drp OPHTHALMIC (EYE) QID Saline Nasal 0.65 % Aerosol,[place] 1 spray INTRANASAL BID sennosides-docusate sodium [Stimulant Laxative Plus] 8.6-50 mg tablet 1 tab PO BEDTIME levothyroxine 75 mcg tablet 75 mcg PO DAILY@0600 omeprazole 20 mg capsule,delayed release(DR/EC) 20 mg PO DAILY@0630 divalproex 500 mg tablet extended release 24 hr 1,000 mg PO BEDTIME sertraline 100 mg tablet 100 mg PO DAILY Lactaid Fast Act 9,000 unit Tablet,Chewable 18,000 unit PO QIDWMHS PRN (Reason: EATING DIARY) Rx Instructions: administer with meals and/or snacks Benefiber Sugar Free (dextrin) 3 gram/4 gram Powder 1 packet PO BID Rx Instructions: mix into at least 4 oz water or juice before administering quetiapine 200 mg Tablet 200 mg PO TID 30 Days Qty: 90 0RF albuterol sulfate 90 mcg/actuation HFA aerosol inhaler 2 puff inhalation Q4H PRN (Reason: Wheezing) simethicone 80 mg tablet,chewable 80 mg PO TID divalproex 500 mg tablet extended release 24 hr 500 mg PO DAILY trazodone 100 mg tablet 100 mg PO BEDTIME atorvastatin 10 mg tablet 10 mg PO DAILY fluoride (sodium) [Denta 5000 Plus] 1.1 % cream 1 appl PO DAILY Discharge Orders: Discharge Order (Routine); Ordered 07/24/24 Ordered By: Ai Robert Diet: Advance to usual diet Activity on Discharge: As tolerated Stand Alone Forms: Patient Portal Discharge page Print Language: Greenlandic Care Plan Goals: Acute colitis resolved no further antibiotic mild Moisture associated skin damage to perineal and intergluteal area Recommendations: 1. Turn and Reposition every 2 hours and as needed for patient comfort.? Use pillows or wedges to support off loading positions. 2. Off Load all bony prominences with use of pillows.? Apply Preventative foams where needed. ? 3. Monitor for incontinence and moisture control, use barrier creams when needed for prevention and treatment. 4. Provide adequate and supplemental nutrition.? 5. When applicable maintain blood glucose levels per Providers order. 6. Perineal and Buttock - Routine cleansing, pat dry. Apply barrier cream twice daily and PRN for episodes of incontinence. Discharged to rehab due to fall with physical deconditioning for less than 30 days Health Concerns: Continue all home medications as before Plan of Treatment: Outpatient follow-up with primary care physician call for appointment Assessment: As above
--- NOTE | 2024-07-24 10:52 | MHC.CM.PN ---
Pt medically cleared for dc to str at [facility] skilled at 2pm via [place] for bls transport. Guardian notified via email per request and IMM delivered yesterday 07/23/24. supervisor [employer] made aware pt requesting clothes be brought in for her here or at snf.
[2024-07-24 11:20] VITALS: BP 108/60; PULSE 74; RESP 18; TEMP 36.7; O2SAT 97
== END 2024-07-24 14:05 | disposition skilled nursing facility (03) | DRG 871 ==
LOC: HO.ED 10:31 → HO.EDOVER 11:37 → HO.IMC 23:53 → HO.ICU 07-15 01:06 → HO.IMC 07-16 17:07
PROVIDERS: Internal Medicine; Nurse Practitioner Family; Admitting Provider Student in an Organized Health Care Education/Training Program; Emergency Provider Emergency Medicine; PCP Nurse Practitioner Primary Care; Visit Provider Hospitalist
DX: A41.9 Sepsis, unspecified organism (principal); R57.1 Hypovolemic shock; U07.1 COVID-19; R65.21 Severe sepsis with septic shock; E87.21 Acute metabolic acidosis; N17.9 Acute kidney failure, unspecified; D61.818 Other pancytopenia; R53.81 Other malaise; F43.10 Post-traumatic stress disorder, unspecified; R85.610 Atypical squamous cells of undetermined significance on cytologic smear of anus (ASC-US); K74.60 Unspecified cirrhosis of liver; Z21 Asymptomatic human immunodeficiency virus [HIV] infection status; K52.9 Noninfective gastroenteritis and colitis, unspecified; E03.9 Hypothyroidism, unspecified; N18.30 Chronic kidney disease, stage 3 unspecified; E86.0 Dehydration; Z86.19 Personal history of other infectious and parasitic diseases; Z79.890 Hormone replacement therapy; Z79.899 Other long term (current) drug therapy
CPT/HCPCS: 0241U; 36415; 70450; 71045; 72125; 74176; 80048; 80053; 81001; 82040; 82550; 83605; 83615; 83735; 84100; 84484; 85007; 85025; 85027; 86140; 86850; 86900; 86901; 87040; 87086; 87493; 87635; 93005; 97116; 97162; 97530; 99285; C1758; J0131; J0613; J0692; J0696; J1644; J1836; J2760; J3371; J7120; P9047

== ENCOUNTER → 2024-07-14 07:39 | Outpatient (BNV) | payer MEDICARE, MEDICAID, SELFPAY | PROVIDERS: Emergency Provider Emergency Medicine; PCP Nurse Practitioner Primary Care; Visit Provider Radiology Diagnostic Radiology | DX: R10.9 Unspecified abdominal pain (principal); S09.90XA Unspecified injury of head, initial encounter; W19.XXXA Unspecified fall, initial encounter | CPT/HCPCS: 70450; 71045; 72125; 74176 ==

== ENCOUNTER → 2024-07-14 07:39 | Outpatient (BNV) | payer MEDICARE, MEDICAID, SELFPAY | PROVIDERS: Admitting Provider Student in an Organized Health Care Education/Training Program; Emergency Provider Emergency Medicine; PCP Nurse Practitioner Primary Care; Visit Provider Internal Medicine | DX: R07.9 Chest pain, unspecified (principal); R00.0 Tachycardia, unspecified; R94.31 Abnormal electrocardiogram [ECG] [EKG] | CPT/HCPCS: 93010 ==

== ENCOUNTER → 2024-07-14 11:25 | Outpatient (BNV) | payer MEDICARE, MEDICAID, SELFPAY | PROVIDERS: Admitting Provider Student in an Organized Health Care Education/Training Program; Emergency Provider Emergency Medicine; PCP Nurse Practitioner Primary Care; Visit Provider Surgery | DX: R10.9 Unspecified abdominal pain (principal) | CPT/HCPCS: 99222 ==

== ENCOUNTER → 2024-07-14 11:25 | Outpatient (BNV) | payer MEDICARE, MEDICAID, SELFPAY | PROVIDERS: Admitting Provider Student in an Organized Health Care Education/Training Program; Emergency Provider Emergency Medicine; PCP Nurse Practitioner Primary Care; Visit Provider Nurse Practitioner Family | DX: D69.6 Thrombocytopenia, unspecified (principal); K74.60 Unspecified cirrhosis of liver; K21.9 Gastro-esophageal reflux disease without esophagitis | CPT/HCPCS: 99223; 99499 ==

== ENCOUNTER → 2024-07-14 11:25 | Outpatient (BNV) | payer MEDICARE, MEDICAID, SELFPAY | PROVIDERS: Admitting Provider Student in an Organized Health Care Education/Training Program; Emergency Provider Emergency Medicine; PCP Nurse Practitioner Primary Care; Visit Provider Student in an Organized Health Care Education/Training Program | DX: U07.1 COVID-19 (principal); E87.20 Acidosis, unspecified; N17.9 Acute kidney failure, unspecified; R65.10 Systemic inflammatory response syndrome (SIRS) of non-infectious origin without acute organ dysfunction | CPT/HCPCS: 99223; 99499 ==

== ENCOUNTER 2024-10-15 11:33 | Outpatient (REF) | payer MEDICARE, MEDICAID, SELFPAY ==
--- OUTSIDE RECORDS SUMMARY | 2024-10-15 16:23 | XMS_ITS | Encounter Summary ---
Author Organization [facility] Address [address] [place] [address] Care Team Providers Care Custom Decorating Consultant Name Role Phone Neftali Nina Marsh NP Primary Care Provider [phone] Encounter Details Date Type Department Care Team (Late st Contact Info) Description 09/29/2024 Lab Requisition [facility] - Main Lab [address] [facility] [place] [place] [address] Stephanie Celis MD [address] [phone] Hyperlipidemia, unspecified; Unspecified cirrhosis of liver (CMS/HCC [...] AM EDT) WBC 4.0(L) 4.8 - 10.8 K/[facility] LAB HEMETOLOGY METHOD 09/29/2024 10:51 AM EDT [facility] RBC 3.50(L) 3.80 - 4.80 M/mcL LAB HEMETOLOGY METHOD 09/29/2024 10:51 AM [facility] Hemoglobin 12.9 11.5 - 16.0 g/dL LAB HEMETOLOGY METHOD 09/29/2024 10:51 AM [facility] Hematocrit 39.1 35.0 - 47.0 % LAB HEMETOLOGY METHOD 09/29/2024 10:51 AM [facility] MCV 111.1(H) 79.0 - 98.0 FL LAB HEMETOLOGY METHOD 09/29/2024 10:51 AM [facility] MCH 36.6(H) 27.0 - 32.0 pcg LAB HEMETOLOGY METHOD 09/29/2024 10:51 AM [facility] LAB MCHC 33.0 32.0 - 37.0 g/dL LAB HEMETOLOGY METHOD 09/29/2024 10:51 AM [facility] RDW 13.1 11.0 - 15.0 % LAB HEMETOLOGY METHOD 09/29/2024 10:51 AM [facility] Platelets 101(L) 130 - 400 K/mcL LAB HEMETOLOGY METHOD 09/29/2024 10:51 AM [facility] MPV 9.5 7.0 - 11.0 FL LAB HEMETOLOGY METHOD 09/29/2024 10:51 AM [facility] NRBC 0.0 <1.0 % LAB HEMETOLOGY METHOD 09/29/2024 10:51 AM [facility] LAB NRBC Absolute 0.00 <0.10 K/mcL LAB HEMETOLOGY METHOD 09/29/2024 10:51 AM [facility] Blood Venous blood specimen / Unknown Venipuncture / Unknown 09/29/2024 8:28 AM EDT 09/29/2024 10:07 AM EDT us Stephanie Celis MD LAB BLOOD ORDERABLES Fin al Result [facility] [address] [place] [address], documented in this encounter Visit Diagnoses Diagnosis Hyperlipidemia, unspecified Unspecified cirrhosis of liver (CMS/HCC V24, CMS/HCC V28) Chronic kidney disease, stage 3 unspecified (CMS/HCC V24, CMS/HCC V28) documented in this encounter Care Teams Custom Decorating Consultant Relationship Specialty Start Date End Date Nina Lindsay NP [address] [place] [phone] PCP - General 10/07/23 documented as of this encounter
--- OUTSIDE RECORDS SUMMARY | 2024-10-15 16:24 | XMS_ITS | Encounter Summary ---
Author Organization [facility] Address [address] [place] [address] Care Team Providers Care Scale Adjuster Name Role Phone Neftali Nina Marsh NP Primary Care Provider [phone] Encounter Details Date Type Department Care Team (Late st Contact Info) Description 09/16/2024 Lab Requisition [facility] - Main Lab [address] [facility] [place] [address] Stephanie Celis MD [address] [phone] Hyperlipidemia, unspecified; Unspecified cirrhosis of liver (CMS/HCC [...] mmol/L LAB CHEMISTRY METHOD 09/16/2024 11:36 AM [facility] Potassium 3.8 3.5 - 5.5 mmol/L LAB CHEMISTRY METHOD 09/16/2024 11:36 AM [facility] Chloride 104 96 - 110 mmol/L LAB CHEMISTRY METHOD 09/16/2024 11:36 AM [facility] CO2 26 21 - 32 mmol/L LAB CHEMISTRY METHOD 09/16/2024 11:36 AM [facility] Anion Gap 9 3 - 11 LAB CHEMISTRY METHOD 09/16/2024 11:36 AM [facility] Glucose 102(H) 70 - 100 mg/dL LAB CHEMISTRY METHOD 09/16/2024 11:36 AM [facility] BUN 13 5 - 25 mg/dL LAB CHEMISTRY METHOD 09/16/2024 11:36 AM [facility] Creatinine 1.25(H) 0.50 - 1.10 mg/dL LAB CHEMISTRY METHOD 09/16/2024 11:36 AM [facility] eGFR 49(L) >=60 mL/min/1. 73m2 LAB CHEMISTRY METHOD 09/16/2024 11:36 AM [facility] Comment:Calculation based on the??Chronic Kidney Disease Epidemiology Collaboration (CKD-EPI) equation refit??without adjustment for race. BUN/Creatinine Ratio 10.4 LAB CHEMISTRY METHOD 09/16/2024 11:36 AM [facility] Calcium 8.6 8.5 - 10.5 mg/dL LAB CHEMISTRY METHOD 09/16/2024 11:36 AM [facility] Blood Venous blood specimen / Unknown Venipuncture / Unknown 09/16/2024 6:47 AM EDT 09/16/2024 10:10 AM EDT Stephanie Celis MD LAB BLOOD ORDERABLES Fin al Result [facility] [address] [place] [address], * (ABNORMAL) Complete blood count (09/16/2024 6:47 AM EDT) WBC 2.1(L) 4.8 - 10.8 K/mcL LAB HEMETOLOGY METHOD 09/16/2024 11:08 AM EDT [facility] RBC 2.70(L) 3.80 - 4.80 M/mcL LAB HEMETOLOGY METHOD 09/16/2024 11:08 AM EDT [facility] Hemoglobin 10.1(L) 11.5 - 16.0 g/dL LAB HEMETOLOGY METHOD 09/16/2024 11:08 AM [facility] Hematocrit 31.0(L) 35.0 - 47.0 % LAB HEMETOLOGY METHOD 09/16/2024 11:[facility] MCV 116.1(H) 79.0 - 98.0 FL LAB HEMETOLOGY METHOD 09/16/2024 11:08 AM [facility] MCH 37.8(H) 27.0 - 32.0 pcg LAB HEMETOLOGY METHOD 09/16/2024 11:08 AM [facility] MCHC 32.6 32.0 - 37.0 g/dL LAB HEMETOLOGY METHOD 09/16/2024 11:08 AM [facility] RDW 13.3 11.0 - 15.0 % LAB HEMETOLOGY METHOD 09/16/2024 11:08 AM [facility] Platelets 68(L) 130 - 400 K/mcL LAB HEMETOLOGY METHOD 09/16/2024 11:08 AM [facility] Comment:previously verified by slide MPV 9.1 7.0 - 11.0 FL LAB HEMETOLOGY METHOD 09/16/2024 11:08 AM EDT [facility] NRBC 1.0(H) <1.0 % LAB HEMETOLOGY METHOD 09/16/2024 11:08 AM EDT [facility] NRBC Absolute 0.02 <0.10 K/mcL LAB HEMETOLOGY METHOD 09/16/2024 11:08 AM EDT [facility] Blood Venous blood specimen / Unknown Venipuncture / Unknown 09/16/2024 6:47 AM EDT 09/16/2024 10:10 AM EDT us Stephanie Celis MD LAB BLOOD ORDERABLES Fin al Result [facility] [address] [place] [address], documented in this encounter Visit Diagnoses Diagnosis Hyperlipidemia, unspecified Unspecified cirrhosis of liver (CMS/HCC V24, CMS/HCC V28) Chronic kidney disease, stage 3 unspecified (CMS/HCC V24, CMS/HCC V28) documented in this encounter Care Teams Scale Adjuster Relationship Specialty Start Date End Date Nina Lindsay NP [address] [place] [phone] PCP - General 10/07/23 documented as of this encounter
--- OUTSIDE RECORDS SUMMARY | 2024-10-15 16:24 | XMS_ITS | Encounter Summary ---
Author Organization Address [address] [place] [address] Care Team Providers Care Office Technician Name Role Phone Neftali Nina Marsh NP Primary Care Provider [phone] Encounter Details Date Type Department Care Team (Late st Contact Info) Description 09/22/2024 Lab Requisition [facility] - Main Lab 299 [facility] [place] [address] Stephanie Celis MD [address] [address] Other drug-induced pancytopenia (CMS/HCC V24); [...] Basic metabolic panel (09/22/2024 7:02 AM EDT) [facility] Sodium 138 133 - 145 mmol/L LAB CHEMISTRY METHOD 09/22/2024 10:05 AM [facility] Potassium 4.0 3.5 - 5.5 mmol/L LAB CHEMISTRY METHOD 09/22/2024 10:05 AM [facility] Chloride 103 96 - 110 mmol/L LAB CHEMISTRY METHOD 09/22/2024 10:05 AM [facility] LAB CO2 27 21 - 32 mmol/L LAB CHEMISTRY METHOD 09/22/2024 10:05 AM [facility] LAB Anion Gap 8 3 - 11 LAB CHEMISTRY METHOD 09/22/2024 10:05 AM [facility] Glucose 105(H) 70 - 100 mg/dL LAB CHEMISTRY METHOD 09/22/2024 10:05 AM [facility] BUN 15 5 - 25 mg/dL LAB CHEMISTRY METHOD 09/22/2024 10:05 AM [facility] LAB Creatinine 1.15(H) 0.50 - 1.10 mg/dL LAB CHEMISTRY METHOD 09/22/2024 10:05 AM [facility] LAB eGFR 54(L) >=60 mL/min/1. 73m2 LAB CHEMISTRY METHOD 09/22/2024 10:05 AM [facility] LAB Comment:Calculation based on the??Chronic Kidney Disease Epidemiology Collaboration (CKD-EPI) equation refit??without adjustment for race. BUN/Creatinine Ratio 13.0 LAB CHEMISTRY METHOD 09/22/2024 10:05 AM [facility] Calcium 8.9 8.5 - 10.5 mg/dL LAB CHEMISTRY METHOD 09/22/2024 10:05 AM [facility] Blood Venous blood specimen / Unknown Venipuncture / Unknown 09/22/2024 7:02 AM EDT 09/22/2024 8:33 AM EDT us Stephanie Celis MD LAB BLOOD ORDERABLES Fin al Result [facility] [address] [place] [address], * (ABNORMAL) Complete blood count (09/22/2024 7:02 AM EDT) [facility] Signature WBC 2.2(L) 4.8 - 10.8 K/mcL LAB HEMETOLOGY METHOD 09/22/2024 10:32 AM EDT [facility] RBC 2.80(L) 3.80 - 4.80 M/mcL LAB HEMETOLOGY METHOD 09/22/2024 10:32 AM EDT [facility] Hemoglobin 10.5(L) 11.5 - 16.0 g/dL LAB HEMETOLOGY METHOD 09/22/2024 10:32 AM EDT [facility] Hematocrit 30.9(L) 35.0 - 47.0 % LAB HEMETOLOGY METHOD 09/22/2024 10:32 AM EDT [facility] MCV 110.4(H) 79.0 - 98.0 FL LAB HEMETOLOGY METHOD 09/22/2024 10:32 AM EDT [facility] MCH 37.5(H) 27.0 - 32.0 pcg LAB HEMETOLOGY METHOD 09/22/2024 10:32 AM EDT [facility] MCHC 34.0 32.0 - 37.0 g/dL LAB HEMETOLOGY METHOD 09/22/2024 10:32 AM EDT [facility] RDW 13.2 11.0 - 15.0 % LAB HEMETOLOGY METHOD 09/22/2024 10:32 AM EDT [facility] Platelets 66(L) 130 - 400 K/mcL LAB HEMETOLOGY METHOD 09/22/2024 10:32 AM EDT [facility] Comment:previously verified by slide MPV 9.2 7.0 - 11.0 FL LAB HEMETOLOGY METHOD 09/22/2024 10:32 AM EDT [facility] NRBC 0.0 <1.0 % LAB HEMETOLOGY METHOD 09/22/2024 10:32 AM EDT [facility] NRBC Absolute 0.00 <0.10 K/mcL LAB HEMETOLOGY METHOD 09/22/2024 10:32 AM EDT [facility] Blood Venous blood specimen / Unknown Venipuncture / Unknown 09/22/2024 7:02 AM EDT 09/22/2024 8:33 AM EDT us Stephanie Celis MD LAB BLOOD ORDERABLES Fin al Result [facility] [address] [place] [address], documented in this encounter Visit Diagnoses Diagnosis 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
--- OUTSIDE RECORDS SUMMARY | 2024-10-15 16:24 | XMS_ITS | Encounter Summary ---
Author Organization [facility] Address [address] [place] [address] Care Team Providers Care Power Supply Engineer Name Role Phone Nina Lindsay NP Primary Care Provider [phone] Encounter Details Date Type Department Care Team (Late st Contact Info) Description 09/08/2024 Lab Requisition [facility] Lab [address] [facility] [address] Stephanie Celis MD [address] [phone] Other mcfp (current) drug therapy Social History Tobacco Use [...] COUNT Routine 09/08/2024 7:20 AM EST Other mcfp (current) drug therapy BASIC METABOLIC PANEL Routine 09/08/2024 7:20 AM EST 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 documented in this encounter Results * (ABNORMAL) Basic metabolic panel (09/08/2024 7:20 AM EST) Sodium 140 133 - 145 mmol/L LAB CHEMISTRY METHOD 09/08/2024 10:01 AM EST [facility] Potassium 4.2 3.5 - 5.5 mmol/L LAB CHEMISTRY METHOD 09/08/2024 10:01 AM EST [facility] Chloride 103 96 - 110 mmol/L LAB CHEMISTRY METHOD 09/08/2024 10:01 AM [facility] CO2 26 21 - 32 mmol/L LAB CHEMISTRY METHOD 09/08/2024 10:01 AM [facility] Anion Gap 11 3 - 11 LAB CHEMISTRY METHOD 09/08/2024 10:01 AM [facility] Glucose 109(H) 70 - 100 mg/dL LAB CHEMISTRY METHOD 09/08/2024 10:01 AM [facility] BUN 9 5 - 25 mg/dL LAB CHEMISTRY METHOD 09/08/2024 10:01 AM [facility] Creatinine 1.08 0.50 - 1.10 mg/dL LAB CHEMISTRY METHOD 09/08/2024 10:01 AM [facility] eGFR 58(L) >=60 mL/min/1. 73m2 LAB CHEMISTRY METHOD 09/08/2024 10:01 AM [facility] Comment:Calculation based on the??Chronic Kidney Disease Epidemiology Collaboration (CKD-EPI) equation refit??without adjustment for race. BUN/Creatinine Ratio 8.3 LAB CHEMISTRY METHOD 09/08/2024 10:01 AM [facility] Calcium 8.6 8.5 - 10.5 mg/dL LAB CHEMISTRY METHOD 09/08/2024 10:01 AM [facility] Blood Venous blood specimen / Unknown Venipuncture / Unknown 09/08/2024 7:20 AM EST 09/08/2024 9:03 AM EST us Stephanie Celis MD LAB BLOOD ORDERABLES Fin al Result [facility] LAB [address] [place] [address], * (ABNORMAL) Complete blood count (09/08/2024 7:20 AM EST) WBC 2.1(L) 4.8 - 10.8 K/mcL LAB HEMETOLOGY METHOD 09/08/2024 10:40 AM [facility] RBC 2.80(L) 3.80 - 4.80 M/mcL LAB HEMETOLOGY METHOD 09/08/2024 10:40 AM [facility] Hemoglobin 10.6(L) 11.5 - 16.0 g/dL LAB HEMETOLOGY METHOD 09/08/2024 10:40 AM [facility] Hematocrit 31.8(L) 35.0 - 47.0 % LAB HEMETOLOGY METHOD 09/08/2024 10:40 AM [facility] MCV 113.2(H) 79.0 - 98.0 FL LAB HEMETOLOGY METHOD 09/08/2024 10:40 AM [facility] MCH 37.7(H) 27.0 - 32.0 pcg LAB HEMETOLOGY METHOD 09/08/2024 10:40 AM [facility] MCHC 33.3 32.0 - 37.0 g/dL LAB HEMETOLOGY METHOD 09/08/2024 10:40 AM [facility] RDW 13.2 11.0 - 15.0 % LAB HEMETOLOGY METHOD 09/08/2024 10:40 AM [facility] Platelets 34(L) 130 - 400 K/mcL LAB HEMETOLOGY METHOD 09/08/2024 10:40 AM [facility] Comment:previously verified by slide MPV 9.7 7.0 - 11.0 FL LAB HEMETOLOGY METHOD 09/08/2024 10:40 AM [facility] NRBC 0.0 <1.0 % LAB HEMETOLOGY METHOD 09/08/2024 10:40 AM [facility] NRBC Absolute 0.00 <0.10 K/mcL LAB HEMETOLOGY METHOD 09/08/2024 10:40 AM [facility] Blood Venous blood specimen / Unknown Venipuncture / Unknown 09/08/2024 7:20 AM EST 09/08/2024 9:03 AM EST us Stephanie Celis MD LAB BLOOD ORDERABLES Fin al Result [facility] ([facility] [address] [place] [address], documented in this encounter Visit Diagnoses Diagnosis Other mcfp (current) drug therapy documented in this encounter Care Teams Power Supply Engineer Relationship Specialty Start Date End Date Nina Lindsay NP [address] [place] [phone] PCP - General 10/07/23 documented as of this encounter
--- OUTSIDE RECORDS SUMMARY | 2024-10-15 16:24 | XMS_ITS | Encounter Summary ---
Author Organization [facility] Address [address] [place] [address] Care Team Providers Care Manager Sales Training Name Role Phone Neftali Nina Marsh NP Primary Care Provider [phone] Encounter Details Date Type Department Care Team (Late st Contact Info) Description 08/23/[address] [facility] Lab 299 [facility] [place] [address] Stephanie Celis MD [address] [phone] Hypothyroidism, unspecified; Hyperlipidemia, unspecified Social History Tobacco [...] LAB CHEMISTRY METHOD 08/24/2024 11:16 AM EST [facility] Potassium 3.2(L) 3.5 - 5.5 mmol/L LAB CHEMISTRY METHOD 08/24/2024 11:16 AM EST [facility] Chloride 105 96 - 110 mmol/L LAB CHEMISTRY METHOD 08/24/2024 11:16 AM [facility] CO2 26 21 - 32 mmol/L LAB CHEMISTRY METHOD 08/24/2024 11:16 AM [facility] Anion Gap 10 3 - 11 LAB CHEMISTRY METHOD 08/24/2024 11:16 AM [facility] Glucose 87 70 - 100 mg/dL LAB CHEMISTRY METHOD 08/24/2024 11:16 AM [facility] BUN 15 5 - 25 mg/dL LAB CHEMISTRY METHOD 08/24/2024 11:16 AM [facility] Creatinine 1.38(H) 0.50 - 1.10 mg/dL LAB CHEMISTRY METHOD 08/24/2024 11:16 AM [facility] eGFR 43(L) >=60 mL/min/1. 73m2 LAB CHEMISTRY METHOD 08/24/2024 11:16 AM [facility] Comment:Calculation based on the??Chronic Kidney Disease Epidemiology Collaboration (CKD-EPI) equation refit??without adjustment for race. BUN/Creatinine Ratio 10.9 LAB CHEMISTRY METHOD 08/24/2024 11:16 AM [facility] Calcium 8.5 8.5 - 10.5 mg/dL LAB CHEMISTRY METHOD 08/24/2024 11:16 AM [facility] Blood Venous blood specimen / Unknown Venipuncture / Unknown 08/24/2024 6:57 AM EST 08/24/2024 10:21 AM EST us Stephanie Celis MD LAB BLOOD ORDERABLES Fin al Result [facility] [address] [place] [address], * (ABNORMAL) Complete blood count (08/24/2024 6:57 AM EST) WBC 2.4(L) 4.8 - 10.8 K/mcL LAB HEMETOLOGY METHOD 08/24/2024 10:58 AM [facility] RBC 2.70(L) 3.80 - 4.80 M/mcL LAB HEMETOLOGY METHOD 08/24/2024 10:58 AM [facility] Hemoglobin 10.1(L) 11.5 - 16.0 g/dL LAB HEMETOLOGY METHOD 08/24/2024 10:58 AM [facility] Hematocrit 31.4(L) 35.0 - 47.0 % LAB HEMETOLOGY METHOD 08/24/2024 10:58 AM [facility] MCV 118.0(H) 79.0 - 98.0 FL LAB HEMETOLOGY METHOD 08/24/2024 10:58 AM [facility] MCH 38.0(H) 27.0 - 32.0 pcg LAB HEMETOLOGY METHOD 08/24/2024 10:58 AM [facility] MCHC 32.2 32.0 - 37.0 g/dL LAB HEMETOLOGY METHOD 08/24/2024 10:58 AM [facility] RDW 13.5 11.0 - 15.0 % LAB HEMETOLOGY METHOD 08/24/2024 10:58 AM [facility] Platelets 33(L) 130 - 400 K/mcL LAB HEMETOLOGY METHOD 08/24/2024 10:58 AM [facility] LAB Comment:previously verified by slide MPV 9.3 7.0 - 11.0 FL LAB HEMETOLOGY METHOD 08/24/2024 10:58 AM [facility] NRBC 0.0 <1.0 % LAB HEMETOLOGY METHOD 08/24/2024 10:58 AM [facility] NRBC Absolute 0.00 <0.10 K/mcL LAB HEMETOLOGY METHOD 08/24/2024 10:58 AM EST [facility] Blood Venous blood specimen / Unknown Venipuncture / Unknown 08/24/2024 6:57 AM EST 08/24/2024 10:21 AM EST us Stephanie Celis MD LAB BLOOD ORDERABLES Fin al Result [facility] [address] [place] [address], documented in this encounter Visit Diagnoses Diagnosis Hypothyroidism, unspecified Hyperlipidemia, unspecified documented in this encounter Care Teams Manager Sales Training Relationship Specialty Start Date End Date Nina Lindsay NP [address] [place] [phone] PCP - General 10/07/23 documented as of this encounter
--- OUTSIDE RECORDS SUMMARY | 2024-10-15 16:24 | XMS_ITS | Encounter Summary ---
Author Organization [facility] Address [address] [place] [address] Care Team Providers Care Switch Tender Name Role Phone Neftali Nina Marsh NP Primary Care Provider [phone] Encounter Details Date Type Department Care Team (Late st Contact Info) Description 08/26/2024 Lab Requisition [facility] Lab [address] [facility] [place] [address] Stephanie Celis MD [address] [phone] Anemia, unspecified Social History Tobacco Use Types [...] LAB HEMETOLOGY METHOD 08/27/2024 12:41 PM EST [facility] RBC 2.60(L) 3.80 - 4.80 M/mcL LAB HEMETOLOGY METHOD 08/27/2024 12:41 PM EST [facility] LAB Hemoglobin 9.8(L) 11.5 - 16.0 g/dL LAB HEMETOLOGY METHOD 08/27/2024 12:41 PM [facility] Hematocrit 30.2(L) 35.0 - 47.0 % LAB HEMETOLOGY METHOD 08/27/2024 12:41 PM [facility] MCV 115.7(H) 79.0 - 98.0 FL LAB HEMETOLOGY METHOD 08/27/2024 12:41 PM [facility] MCH 37.5(H) 27.0 - 32.0 pcg LAB HEMETOLOGY METHOD 08/27/2024 12:41 PM [facility] MCHC 32.5 32.0 - 37.0 g/dL LAB HEMETOLOGY METHOD 08/27/2024 12:41 PM [facility] RDW 13.2 11.0 - 15.0 % LAB HEMETOLOGY METHOD 08/27/2024 12:41 PM [facility] Platelets 30(L) 130 - 400 K/mcL LAB HEMETOLOGY METHOD 08/27/2024 12:41 PM [facility] Comment:previously verified by slide MPV 9.9 7.0 - 11.0 FL LAB HEMETOLOGY METHOD 08/27/2024 12:41 PM [facility] NRBC 0.0 <1.0 % LAB HEMETOLOGY METHOD 08/27/2024 12:41 PM [facility] NRBC Absolute 0.00 <0.10 K/mcL LAB HEMETOLOGY METHOD 08/27/2024 12:41 PM [facility] Blood Venous blood specimen / Unknown 08/27/2024 7:46 AM EST 08/27/2024 11:46 AM EST us Stephanie Celis MD LAB BLOOD ORDERABLES Fin al Result [facility] LAB [address] [place] [address], documented in this encounter Visit Diagnoses Diagnosis Anemia, unspecified documented in this encounter Care Teams Switch Tender Relationship Specialty Start Date End Date Nina Lindsay, WENDY [address] [place] [address] [place] [phone] PCP - General 10/07/23 documented as of this encounter
--- OUTSIDE RECORDS SUMMARY | 2024-10-15 16:24 | XMS_ITS | Encounter Summary ---
Author Organization [facility] Address [address] [place] [address] Care Team Providers Care Burn Center Nurse Name Role Phone Neftali Nina Marsh NP Primary Care Provider [phone] Encounter Details Date Type Department Care Team (Late st Contact Info) Description 08/13/2024 Lab Requisition [facility] Lab [address] [facility] [place] [address] Stephanie Celis MD [address] [phone] Human immunodeficiency virus (HIV) disease (CMS/HCC V24, [...] AM EST Human immunodeficiency virus (HIV) disease ([facility]) Noninfective gastroenteritis and colitis, unspecified Altered mental status, unspecified Vitamin D deficiency, unspecified documented in this encounter Results * (ABNORMAL) Complete blood count (08/13/2024 7:22 AM EST) [facility] WBC 2.6(L) 4.8 - 10.8 K/[facility] LAB HEMETOLOGY METHOD 08/13/2024 10:51 AM EST [facility] ([facility] RBC 2.50(L) 3.80 - 4.80 M/mcL LAB HEMETOLOGY METHOD 08/13/2024 10:[address] [facility] Hemoglobin 9.6(L) 11.5 - 16.0 g/dL LAB HEMETOLOGY METHOD 08/13/2024 10:[address] [facility] Hematocrit 29.0(L) 35.0 - 47.0 % LAB HEMETOLOGY METHOD 08/13/2024 10:[address] [facility] MCV 115.5(H) 79.0 - 98.0 FL LAB HEMETOLOGY METHOD 08/13/2024 10:[address] [facility] MCH 38.2(H) 27.0 - 32.0 pcg LAB HEMETOLOGY METHOD 08/13/2024 10:[address] [facility] LAB MCHC 33.1 32.0 - 37.0 g/dL LAB HEMETOLOGY METHOD 08/13/2024 10:[address] [facility] RDW 12.2 11.0 - 15.0 % LAB HEMETOLOGY METHOD 08/13/2024 10:[address] [facility] Platelets 38(L) 130 - 400 K/mcL LAB HEMETOLOGY METHOD 08/13/2024 10:[address] [facility] Comment:previously verified by slide MPV 9.4 7.0 - 11.0 FL LAB HEMETOLOGY METHOD 08/13/2024 10:[address] [facility] NRBC 0.0 <1.0 % LAB HEMETOLOGY METHOD 08/13/2024 10:[address] [facility] NRBC Absolute 0.00 <0.10 K/mcL LAB HEMETOLOGY METHOD 08/13/2024 10:[address] [facility] Blood Venous blood specimen / Unknown Venipuncture / Unknown 08/13/2024 7:22 AM EST 08/13/2024 9:57 AM EST us Stephanie Celis MD LAB BLOOD ORDERABLES Fin al Result [facility] ([facility]) [facility] [address] [place] [address], documented in this encounter Visit Diagnoses Diagnosis Human immunodeficiency virus (HIV) disease ([facility] V24, [facility] V28) Human immunodeficiency virus [HIV] disease Noninfective gastroenteritis and colitis, unspecified Altered mental status, unspecified Vitamin D deficiency, unspecified documented in this encounter Care Teams Burn Center Nurse Relationship Specialty Start Date End Date Nina Lindsay NP [address] [place] [phone] PCP - General 10/07/23 documented as of this encounter
--- OUTSIDE RECORDS SUMMARY | 2024-10-15 16:24 | XMS_ITS | Encounter Summary ---
Author Organization [facility] Address [address] [place] [address] Care Team Providers Care Contracts Paralegal Name Role Phone Neftali Nina Marsh NP Primary Care Provider [phone] Encounter Details Date Type Department Care Team (Late st Contact Info) Description 08/15/2024 Lab Requisition [facility] Lab [address] [facility] [place] [address] Stephanie Celis MD [address] [phone] Hyperlipidemia, unspecified; Hypothyroidism, unspecified Social History Tobacco [...] LAB CHEMISTRY METHOD 08/17/2024 11:29 AM EST [facility] Potassium 3.8 3.5 - 5.5 mmol/L LAB CHEMISTRY METHOD 08/17/2024 11:29 AM EST [facility] Chloride 103 96 - 110 mmol/L LAB CHEMISTRY METHOD 08/17/2024 11:29 AM [facility] CO2 30 21 - 32 mmol/L LAB CHEMISTRY METHOD 08/17/2024 11:29 AM [facility] LAB Anion Gap 6 3 - 11 LAB CHEMISTRY METHOD 08/17/2024 11:29 AM [facility] Glucose 98 70 - 100 mg/dL LAB CHEMISTRY METHOD 08/17/2024 11:29 AM [facility] BUN 18 5 - 25 mg/dL LAB CHEMISTRY METHOD 08/17/2024 11:29 AM [facility] Creatinine 1.57(H) 0.50 - 1.10 mg/dL LAB CHEMISTRY METHOD 08/17/2024 11:29 AM [facility] LAB eGFR 37(L) >=60 mL/min/1. 73m2 LAB CHEMISTRY METHOD 08/17/2024 11:29 AM [facility] LAB Comment:Calculation based on the??Chronic Kidney Disease Epidemiology Collaboration (CKD-EPI) equation refit??without adjustment for race. BUN/Creatinine Ratio 11.5 LAB CHEMISTRY METHOD 08/17/2024 11:29 AM [facility] LAB Calcium 8.6 8.5 - 10.5 mg/dL LAB CHEMISTRY METHOD 08/17/2024 11:29 AM [facility] LAB Blood Venous blood specimen / Unknown Venipuncture / Unknown 08/17/2024 5:27 AM EST 08/17/2024 10:16 AM EST us Stephanie Celis MD LAB BLOOD ORDERABLES Fin al Result [facility] [address] [place] [address], * (ABNORMAL) Complete blood count (08/17/2024 5:27 AM EST) WBC 2.6(L) 4.8 - 10.8 K/mcL LAB HEMETOLOGY METHOD 08/17/2024 10:38 AM [facility] RBC 2.70(L) 3.80 - 4.80 M/mcL LAB HEMETOLOGY METHOD 08/17/2024 10:38 AM [facility] Hemoglobin 10.1(L) 11.5 - 16.0 g/dL LAB HEMETOLOGY METHOD 08/17/2024 10:38 AM [facility] LAB Hematocrit 31.7(L) 35.0 - 47.0 % LAB HEMETOLOGY METHOD 08/17/2024 10:38 AM [facility] LAB MCV 118.7(H) 79.0 - 98.0 FL LAB HEMETOLOGY METHOD 08/17/2024 10:38 AM [facility] LAB MCH 37.8(H) 27.0 - 32.0 pcg LAB HEMETOLOGY METHOD 08/17/2024 10:38 AM [facility] LAB MCHC 31.9(L) 32.0 - 37.0 g/dL LAB HEMETOLOGY METHOD 08/17/2024 10:38 AM [facility] LAB RDW 13.2 11.0 - 15.0 % LAB HEMETOLOGY METHOD 08/17/2024 10:38 AM [facility] LAB Platelets 50(L) 130 - 400 K/mcL LAB HEMETOLOGY METHOD 08/17/2024 10:38 AM [facility] LAB Comment:previously verified by slide MPV 9.6 7.0 - 11.0 FL LAB HEMETOLOGY METHOD 08/17/2024 10:38 AM [facility] NRBC 0.0 <1.0 % LAB HEMETOLOGY METHOD 08/17/2024 10:38 AM [facility] LAB NRBC Absolute 0.00 <0.10 K/mcL LAB HEMETOLOGY METHOD 08/17/2024 10:38 AM EST [facility] Blood Venous blood specimen / Unknown Venipuncture / Unknown 08/17/2024 5:27 AM EST 08/17/2024 10:16 AM EST us Stephanie Celis MD LAB BLOOD ORDERABLES Fin al Result [facility] [address] [place] [address], documented in this encounter Visit Diagnoses Diagnosis Hyperlipidemia, unspecified Hypothyroidism, unspecified documented in this encounter Care Teams Contracts Paralegal Relationship Specialty Start Date End Date Nina Lindsay NP [address] [place] [phone] PCP - General 10/07/23 documented as of this encounter
--- OUTSIDE RECORDS SUMMARY | 2024-10-15 16:24 | XMS_ITS | Encounter Summary ---
Author Organization [facility] Address [address] [place] [address] Care Team Providers Care Upsetter Setter Up Name Role Phone Neftali Nina Marsh NP Primary Care Provider [phone] Encounter Details Date Type Department Care Team (Late st Contact Info) Description 08/07/2024 Lab Requisition [facility] Lab [address] [facility] [place] [address] Stephanie Celis MD [address] [phone] Hyperlipidemia, unspecified; Hypothyroidism, unspecified Social History Tobacco [...] LAB CHEMISTRY METHOD 08/10/2024 1:16 PM EST [facility] Potassium 3.6 3.5 - 5.5 mmol/L LAB CHEMISTRY METHOD 08/10/2024 1:16 PM EST [facility] Chloride 103 96 - 110 mmol/L LAB CHEMISTRY METHOD 08/10/2024 1:16 PM EST [facility] CO2 29 21 - 32 mmol/L LAB CHEMISTRY METHOD 08/10/2024 1:16 PM [facility] Anion Gap 7 3 - 11 LAB CHEMISTRY METHOD 08/10/2024 1:16 PM [facility] LAB Glucose 128(H) 70 - 100 mg/dL LAB CHEMISTRY METHOD 08/10/2024 1:16 PM [facility] BUN 22 5 - 25 mg/dL LAB CHEMISTRY METHOD 08/10/2024 1:16 PM [facility] Creatinine 1.37(H) 0.50 - 1.10 mg/dL LAB CHEMISTRY METHOD 08/10/2024 1:16 PM [facility] LAB eGFR 44(L) >=60 mL/min/1. 73m2 LAB CHEMISTRY METHOD 08/10/2024 1:16 PM [facility] LAB Comment:Calculation based on the??Chronic Kidney Disease Epidemiology Collaboration (CKD-EPI) equation refit??without adjustment for race. BUN/Creatinine Ratio 16.1 LAB CHEMISTRY METHOD 08/10/2024 1:16 PM [facility] Calcium 8.5 8.5 - 10.5 mg/dL LAB CHEMISTRY METHOD 08/10/2024 1:16 PM [facility] Blood Venous blood specimen / Unknown Venipuncture / Unknown 08/10/2024 8:44 AM EST 08/10/2024 11:11 AM EST us Stephanie Celis MD LAB BLOOD ORDERABLES Fin al Result [facility] [address] [place] [address], * (ABNORMAL) Complete blood count (08/10/2024 8:44 AM EST) WBC 3.9(L) 4.8 - 10.8 K/mcL LAB HEMETOLOGY METHOD 08/10/2024 12:39 PM [facility] RBC 2.60(L) 3.80 - 4.80 M/mcL LAB HEMETOLOGY METHOD 08/10/2024 12:39 PM [facility] Hemoglobin 9.9(L) 11.5 - 16.0 g/dL LAB HEMETOLOGY METHOD 08/10/2024 12:39 PM [facility] Hematocrit 30.5(L) 35.0 - 47.0 % LAB HEMETOLOGY METHOD 08/10/2024 12:39 PM [facility] LAB MCV 116.4(H) 79.0 - 98.0 FL LAB HEMETOLOGY METHOD 08/10/2024 12:39 PM [facility] LAB MCH 37.8(H) 27.0 - 32.0 pcg LAB HEMETOLOGY METHOD 08/10/2024 12:39 PM [facility] LAB MCHC 32.5 32.0 - 37.0 g/dL LAB HEMETOLOGY METHOD 08/10/2024 12:39 PM [facility] LAB RDW 12.3 11.0 - 15.0 % LAB HEMETOLOGY METHOD 08/10/2024 12:39 PM [facility] Platelets 43(L) 130 - 400 K/mcL LAB HEMETOLOGY METHOD 08/10/2024 12:39 PM [facility] LAB Comment:previously verified by slide MPV 9.8 7.0 - 11.0 FL LAB HEMETOLOGY METHOD 08/10/2024 12:39 PM [facility] NRBC 0.5 <1.0 % LAB HEMETOLOGY METHOD 08/10/2024 12:39 PM [facility] LAB NRBC Absolute 0.02 <0.10 K/mcL LAB HEMETOLOGY METHOD 08/10/2024 12:39 PM EST [facility] Blood Venous blood specimen / Unknown Venipuncture / Unknown 08/10/2024 8:44 AM EST 08/10/2024 11:11 AM EST us Stephanie Celis MD LAB BLOOD ORDERABLES Fin al Result [facility] [address] [place] [address], documented in this encounter Visit Diagnoses Diagnosis Hyperlipidemia, unspecified Hypothyroidism, unspecified documented in this encounter Care Teams Upsetter Setter Up Relationship Specialty Start Date End Date Nina Lindsay NP [address] [place] [phone] PCP - General 10/07/23 documented as of this encounter
--- OUTSIDE RECORDS SUMMARY | 2024-10-15 16:24 | XMS_ITS | Encounter Summary ---
Author Organization [facility] Address [address] [place] [address] Care Team Providers Care Registered Mail Clerk Name Role Phone Neftali Nina Marsh NP Primary Care Provider [phone] Encounter Details Date Type Department Care Team (Late st Contact Info) Description 08/20/2024 Lab Requisition [facility] - Main Lab [address] [facility] [place] [address] Stephanie Celis MD [address] [address] Acute kidney failure, unspecified (CMS/HCC [...] LAB CHEMISTRY METHOD 08/20/2024 9:05 AM EST [facility] Blood Venous blood specimen / Unknown Venipuncture / Unknown 08/20/2024 7:52 AM EST 08/20/2024 8:36 AM EST Stephanie Celis MD LAB BLOOD ORDERABLES Fin al Result [facility] [address] [place] [address], * (ABNORMAL) Comprehensive metabolic panel (08/20/2024 7:52 AM EST) Sodium 139 133 - 145 mmol/L LAB CHEMISTRY METHOD 08/20/2024 9:44 AM [facility] Potassium 4.2 3.5 - 5.5 mmol/L LAB CHEMISTRY METHOD 08/20/2024 9:44 AM [facility] Chloride 104 96 - 110 mmol/L LAB CHEMISTRY METHOD 08/20/2024 9:44 AM [facility] CO2 31 21 - 32 mmol/L LAB CHEMISTRY METHOD 08/20/2024 9:44 AM [facility] Anion Gap 4 3 - 11 LAB CHEMISTRY METHOD 08/20/2024 9:44 AM [facility] Glucose 116(H) 70 - 100 mg/dL LAB CHEMISTRY METHOD 08/20/2024 9:44 AM [facility] BUN 14 5 - 25 mg/dL LAB CHEMISTRY METHOD 08/20/2024 9:44 AM [facility] Creatinine 1.54(H) 0.50 - 1.10 mg/dL LAB CHEMISTRY METHOD 08/20/2024 9:44 AM [facility] eGFR 38(L) >=60 mL/min/1. 73m2 LAB CHEMISTRY METHOD 08/20/2024 9:44 AM [facility] Comment:Calculation based on the??Chronic Kidney Disease Epidemiology Collaboration (CKD-EPI) equation refit??without adjustment for race. BUN/Creatinine Ratio 9.1 LAB CHEMISTRY METHOD 08/20/2024 9:44 AM [facility] Calcium 8.5 8.5 - 10.5 mg/dL LAB CHEMISTRY METHOD 08/20/2024 9:44 AM [facility] AST (SGOT) 22 10 - 42 unit/L LAB CHEMISTRY METHOD 08/20/2024 9:44 AM [facility] ALT (SGPT) 11 10 - 60 unit/L LAB CHEMISTRY METHOD 08/20/2024 9:44 AM [facility] Alkaline Phosphatase 38(L) 42 - 121 unit/L LAB CHEMISTRY METHOD 08/20/2024 9:44 AM [facility] Total Protein 5.9(L) 6.0 - 8.0 g/dL LAB CHEMISTRY METHOD 08/20/2024 9:44 AM [facility] Albumin 2.6(L) 3.2 - 5.0 g/dL LAB CHEMISTRY METHOD 08/20/2024 9:44 AM [facility] Total Bilirubin 0.6 0.0 - 1.4 mg/dL LAB CHEMISTRY METHOD 08/20/2024 9:44 AM [facility] Blood Venous blood specimen / Unknown Venipuncture / Unknown 08/20/2024 7:52 AM EST 08/20/2024 8:36 AM EST Stephanie Celis MD LAB BLOOD ORDERABLES Fin al Result [facility] [address] [place] [address], * (ABNORMAL) Complete blood count (08/20/2024 7:52 AM EST) WBC 2.6(L) 4.8 - 10.8 K/mcL LAB HEMETOLOGY METHOD 08/20/2024 9:31 AM [facility] RBC 2.70(L) 3.80 - 4.80 M/mcL LAB HEMETOLOGY METHOD 08/20/2024 9:31 AM [facility] Hemoglobin 10.2(L) 11.5 - 16.0 g/dL LAB HEMETOLOGY METHOD 08/20/2024 9:31 AM [facility] Hematocrit 31.1(L) 35.0 - 47.0 % LAB HEMETOLOGY METHOD 08/20/2024 9:31 AM [facility] MCV 116.0(H) 79.0 - 98.0 FL LAB HEMETOLOGY METHOD 08/20/2024 9:31 AM [facility] MCH 38.1(H) 27.0 - 32.0 pcg LAB HEMETOLOGY METHOD 08/20/2024 9:31 AM [facility] MCHC 32.8 32.0 - 37.0 g/dL LAB HEMETOLOGY METHOD 08/20/2024 9:31 AM [facility] RDW 13.2 11.0 - 15.0 % LAB HEMETOLOGY METHOD 08/20/2024 9:31 AM [facility] Platelets 46(L) 130 - 400 K/mcL LAB HEMETOLOGY METHOD 08/20/2024 9:31 AM [facility] Comment:previously verified by slide MPV 9.4 7.0 - 11.0 FL LAB HEMETOLOGY METHOD 08/20/2024 9:31 AM EST [facility] NRBC 0.0 <1.0 % LAB HEMETOLOGY METHOD 08/20/2024 9:31 AM EST [facility] NRBC Absolute 0.00 <0.10 K/mcL LAB HEMETOLOGY METHOD 08/20/2024 9:31 AM EST [facility] Blood Venous blood specimen / Unknown Venipuncture / Unknown 08/20/2024 7:52 AM EST 08/20/2024 8:36 AM EST us Stephanie Celis MD LAB BLOOD ORDERABLES Fin al Result [facility] [address] [place] [address], documented in this encounter Visit Diagnoses Diagnosis Acute kidney failure, unspecified (CMS/[facility] V24) Acute kidney failure, unspecified Chronic kidney disease, stage 3 unspecified (CMS/HCC V24, [facility] V28) Human immunodeficiency virus (HIV) disease ([facility] V24, [facility] V28) Human immunodeficiency virus [HIV] disease documented in this encounter Care Teams Registered Mail Clerk Relationship Specialty Start Date End Date Nina Lindsay NP [address] [place] [phone] PCP - General 10/07/23 documented as of this encounter
--- OUTSIDE RECORDS SUMMARY | 2024-10-15 16:24 | XMS_ITS | Clinical Summary ---
Author Organization [address] [facility] Address [address] [place] [address] Phone Care Team Providers Care Program Advisor Name Role Phone Nina Lindsay NP Primary Care Provider [phone] Allergies Active Allergy Reactions Criticality Noted Date [...] Department Care Team Description 09/29/2024 Lab Requisition [facility] [address] [place] [address] Stephanie Celis MD Hyperlipidemia, unspecified; Unspecified cirrhosis of liver (CMS/HCC V24, CMS/HCC V28); Chronic kidney disease, stage 3 unspecified (CMS/HCC V24, CMS/HCC V28) 09/22/2024 Lab Requisition [facility] [address] [place] [address] Stephanie Celis MD Other drug-induced pancytopenia (CMS/HCC V24); Chronic kidney disease, stage 3 unspecified (CMS/HCC V24, CMS/HCC V28) 09/16/2024 Lab Requisition [facility] [address] [place] [phone] Stephanie Celis MD Hyperlipidemia, unspecified; Unspecified cirrhosis of liver ([facility] V24, [facility] V28); Chronic kidney disease, stage 3 unspecified ([facility] V24, [facility] V28) 09/08/2024 Lab Requisition [facility] [address] [place] [phone] Stephanie Celis MD Other fpc (current) drug therapy 08/26/2024 Lab Requisition [facility] [address] [place] [phone] Stephanie Celis MD Anemia, unspecified 08/25/2024 Lab Requisition [facility] [address] [place] [phone] Stephanie Celis MD Encounter for therapeutic drug level monitoring 08/23/2024 Lab Requisition [facility] [address] [place] [phone] Stephanie Celis MD Hypothyroidism, unspecified; Hyperlipidemia, unspecified 08/20/2024 Lab Requisition [facility] [address] [place] [phone] Stephanie Celis MD Acute kidney failure, unspecified ([facility] V24); Chronic kidney disease, stage 3 unspecified ([facility] V24, [facility] V28); Human immunodeficiency virus (HIV) disease ([facility] V24, [facility] V28) 08/15/2024 Lab Requisition [facility] [address] [place] [phone] Stephanie Celis MD Hyperlipidemia, unspecified; Hypothyroidism, unspecified 08/13/2024 Lab Requisition [facility] [address] [place] [phone] Stephanie Celis MD Human immunodeficiency virus (HIV) disease [place] [place], [facility] [place] Noninfective gastroenteritis and colitis, unspecified; Altered mental status, unspecified; Vitamin D deficiency, unspecified 08/11/2024 Lab Requisition [facility] [address] [place] [phone] Stephanie Celis MD Altered mental status, unspecified 08/07/2024 Lab Requisition [facility] [address] [place] [phone] Stephanie Celis MD Hyperlipidemia, unspecified; Hypothyroidism, unspecified 07/31/2024 Lab Requisition [facility] [address] [place] [phone] Stephanie Celis MD Hyperlipidemia, unspecified; Hypothyroidism, unspecified 07/27/2024 Lab Requisition [facility] [address] [place] [address] Stephanie Celis MD Vitamin D deficiency, unspecified; Chronic kidney disease, stage 3 unspecified ([facility] [place], [facility] [place]); Anxiety disorder, unspecified; Unspecified cirrhosis of liver ([facility], [facility] V28); Syphilis, unspecified; Chronic viral hepatitis C ([facility] [place], [facility] V28); Frequency of micturition; Hyperlipidemia, unspecified; Depression, unspecified; Noninfective gastroenteritis and colitis, unspecified; Unspecified psychosis not due to a substance or known physiological condition ([facility] [place], [facility] V28); Human immunodeficiency virus (HIV) disease ([facility] [place], [facility] V28); Hypothyroidism, unspecified; COVID-19 from Last 3 [...] PANEL Routine 09/08/2024 7:20 AM EST Other exterminator termite (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) drug therapy COMPLETE BLOOD COUNT Routine 09/08/2024 7:20 AM EST Other exterminator termite (current) drug therapy COMPLETE BLOOD COUNT Routine [...] 10:51 AM [facility] RBC 3.50(L) 3.80 [...] LAB HEMETOLOGY METHOD 09/29/2024 10:51 AM EDT [facility] Platelets 101(L) 130 - 400 K/mcL LAB HEMETOLOGY METHOD 09/29/2024 10:51 AM EDT [facility] MPV 9.5 7.0 - 11.0 FL LAB HEMETOLOGY METHOD 09/29/2024 10:51 AM EDT [facility] NRBC 0.0 <1.0 % LAB HEMETOLOGY METHOD 09/29/2024 10:51 AM EDT [facility] NRBC Absolute 0.00 <0.10 K/mcL [facility] 09/29/2024 10:51 AM [facility] Blood Venous blood specimen / Unknown Venipuncture / Unknown 09/29/2024 8:28 AM EDT 09/29/2024 10:07 AM EDT us Stephanie Celis MD LAB BLOOD ORDERABLES Fin al Result [facility] [address] [place] [address], * (ABNORMAL) Basic metabolic panel (09/22/2024 7:02 AM EDT) Only the most recent of7 resultswithin the time period is included. Sodium 138 133 - 145 mmol/L LAB CHEMISTRY METHOD 09/22/2024 10:05 AM [facility] Potassium 4.0 3.5 - 5.5 mmol/L LAB CHEMISTRY METHOD 09/22/2024 10:05 AM [facility] Chloride 103 96 - 110 mmol/L LAB CHEMISTRY METHOD 09/22/2024 10:05 AM [facility] CO2 27 21 - 32 mmol/L LAB CHEMISTRY METHOD 09/22/2024 10:05 AM EDT [facility] Anion Gap 8 3 - 11 LAB CHEMISTRY METHOD 09/22/2024 10:05 AM [facility] Glucose 105(H) 70 - 100 mg/dL LAB CHEMISTRY METHOD 09/22/2024 10:05 AM [facility] BUN 15 5 - 25 mg/dL LAB CHEMISTRY METHOD 09/22/2024 10:05 AM [facility] Creatinine 1.15(H) 0.50 - 1.10 mg/dL LAB CHEMISTRY METHOD 09/22/2024 10:05 AM [facility] eGFR 54(L) >=60 mL/min/1. 73m2 LAB CHEMISTRY METHOD 09/22/2024 10:05 AM [facility] Comment:Calculation based on the??Chronic Kidney Disease Epidemiology Collaboration (CKD-EPI) equation refit??without adjustment for race. BUN/Creatinine Ratio 13.0 LAB CHEMISTRY METHOD 09/22/2024 10:05 [facility] Calcium 8.9 8.5 - 10.5 mg/dL LAB CHEMISTRY METHOD 09/22/2024 10:05 AM [facility] Blood Venous blood specimen / Unknown Venipuncture / Unknown 09/22/2024 7:02 AM EDT 09/22/2024 8:33 AM EDT Stephanie Celis MD LAB BLOOD ORDERABLES Fin al Result [facility] [address] [place] [address], * Valproic acid level, total (08/25/2024 7:32 AM EST) Valproic Acid, Total 99 50 - 100 mcg/mL LAB CHEMISTRY METHOD 08/25/2024 12:36 PM EST [facility] Blood Venous blood specimen / Unknown Venipuncture / Unknown 08/25/2024 7:32 AM EST 08/25/2024 9:16 AM EST Stephanie Celis MD LAB BLOOD ORDERABLES Fin al Result Performing Organization Address City/[facility]/ZIP Co de Phone Number [facility] [address] [place] [address], [place] [phone] * (ABNORMAL) Ammonia (08/20/2024 7:52 AM EST) Pathologist [facility] Ammonia 50(H) 11 - 35 mcmol/L LAB CHEMISTRY METHOD 08/20/2024 9:05 AM EST [facility] Blood Venous blood specimen / Unknown Venipuncture / Unknown 08/20/2024 7:52 AM EST 08/20/2024 8:36 AM EST Stephanie Celis MD LAB BLOOD ORDERABLES Fin al Result Performing Organization Address [facility]/ZIP Co de Phone Number [facility] [address] [place] [address], [place] [phone] * (ABNORMAL) Comprehensive metabolic panel (08/20/2024 7:52 AM EST) Only the most recent of2 resultswithin the time period is included. [facility] Sodium 139 133 - 145 mmol/L LAB CHEMISTRY METHOD 08/20/2024 9:44 AM [facility] Potassium 4.2 3.5 - 5.5 mmol/L LAB CHEMISTRY METHOD 08/20/2024 9:44 AM [facility] Chloride 104 96 - 110 mmol/L LAB CHEMISTRY METHOD 08/20/2024 9:44 AM [facility] CO2 31 21 - 32 mmol/L LAB CHEMISTRY METHOD 08/20/2024 9:44 AM [facility] Anion Gap 4 3 - 11 LAB CHEMISTRY METHOD 08/20/2024 9:44 AM [facility] Glucose 116(H) 70 - 100 mg/dL LAB CHEMISTRY METHOD 08/20/2024 9:44 AM [facility] BUN 14 5 - 25 mg/dL LAB CHEMISTRY METHOD 08/20/2024 9:44 AM [facility] Creatinine 1.54(H) 0.50 - 1.10 mg/dL LAB CHEMISTRY METHOD 08/20/2024 9:44 AM [facility] eGFR 38(L) >=60 mL/min/1. 73m2 LAB CHEMISTRY METHOD 08/20/2024 9:44 AM [facility] Comment:Calculation based on the??Chronic Kidney Disease Epidemiology Collaboration (CKD-EPI) equation refit??without adjustment for race. BUN/Creatinine Ratio 9.1 LAB CHEMISTRY METHOD 08/20/2024 9:44 AM [facility] Calcium 8.5 8.5 - 10.5 mg/dL LAB CHEMISTRY METHOD 08/20/2024 9:44 AM [facility] AST (SGOT) 22 10 - 42 unit/L LAB CHEMISTRY METHOD 08/20/2024 9:44 AM [facility] ALT (SGPT) 11 10 - 60 unit/L LAB CHEMISTRY METHOD 08/20/2024 9:44 AM [facility] Alkaline Phosphatase 38(L) 42 - 121 unit/L LAB CHEMISTRY METHOD 08/20/2024 9:44 AM [facility] Total Protein 5.9(L) 6.0 - 8.0 g/dL LAB CHEMISTRY METHOD 08/20/2024 9:44 AM [facility] Albumin 2.6(L) 3.2 - 5.0 g/dL LAB CHEMISTRY METHOD 08/20/2024 9:44 AM [facility] Total Bilirubin 0.6 0.0 - 1.4 mg/dL LAB CHEMISTRY METHOD 08/20/2024 9:44 AM [facility] Blood Venous blood specimen / Unknown Venipuncture / Unknown 08/20/2024 7:52 AM EST 08/20/2024 8:36 AM EST us Stephanie Celis MD LAB BLOOD ORDERABLES Fin al Result [facility] [address] [place] [address], [place] [phone] * (ABNORMAL) Urinalysis with reflex microscopic (08/10/2024 2:00 PM EST) Specific [place] Urine 1.019 1.003 - 1.030 LAB URINALYSIS - AUTOMATED METHOD 08/11/2024 11:48 AM [facility] pH, Urine 6.0 5.0 - 8.0 pH LAB URINALYSIS - AUTOMATED METHOD 08/11/2024 11:48 AM [facility] Leukocytes, Urine Large(A) Negative LAB URINALYSIS - AUTOMATED METHOD 08/11/2024 11:48 AM [facility] Nitrite, Urine Negative Negative LAB URINALYSIS - AUTOMATED METHOD 08/11/2024 11:48 AM [facility] Protein, Urine 100(A) <=Trace mg/dL LAB URINALYSIS - AUTOMATED METHOD 08/11/2024 11:48 AM [facility] Glucose, Urine Negative Negative mg/dL LAB URINALYSIS - AUTOMATED METHOD 08/11/2024 11:48 AM [facility] Ketones, Urine Trace(A) Negative mg/dL LAB URINALYSIS - AUTOMATED METHOD 08/11/2024 11:48 AM [facility] Urobilinogen , Urine 1.0 0.2 - 1.0 mg/dL LAB URINALYSIS - AUTOMATED METHOD 08/11/2024 11:48 AM [facility] Bilirubin, Urine Small(A) Negative LAB URINALYSIS - AUTOMATED METHOD 08/11/2024 11:48 AM [facility] Blood, Urine Moderate(A) Negative LAB URINALYSIS - AUTOMATED METHOD 08/11/2024 11:48 AM [facility] RBC, Urine 16.3(H) 0 - 4 /HPF LAB URINALYSIS - AUTOMATED METHOD 08/11/2024 11:48 AM [facility] WBC, Urine 1,391.8(H) 0 - 4 /HPF LAB URINALYSIS - AUTOMATED METHOD 08/11/2024 11:48 AM [facility] Squamous Epithelial, Urine 12 0 - 60 /LPF LAB URINALYSIS - AUTOMATED METHOD 08/11/2024 11:48 AM [facility] Bacteria, Urine Many(A) Negative /HPF LAB URINALYSIS - AUTOMATED METHOD 08/11/2024 11:48 AM [facility] Hyaline Casts, Urine 0.0 0 - 3 /LPF LAB URINALYSIS - AUTOMATED METHOD 08/11/2024 11:48 AM [facility] Urine Urine specimen obtained by clean catch procedure / Unknown Non-blood Collection / Unknown 08/10/2024 2:00 PM EST 08/11/2024 10:50 AM EST Stephanie Celis MD LAB URINE ORDERABLES Fin al Result [facility] [address] [place] [address], * (ABNORMAL) Culture urine (08/10/2024 2:00 PM EST) Culture, Urine >100,000 CFU/mL Klebsiella pneumoniae ssp pneumoniae(A) SAVANA 08/13/2024 10:17 AM EST [facility] Comment: This is an edited result. [...] AL ORDERABLES Final Result Performing Organization Address City/[facility]/ZIP Co de Phone Number [facility] [address] [place] [address], * Vitamin D 25 hydroxy (07/27/2024 5:39 AM EST) Vit D, 25-Hydroxy 55.9 30.0 - 80.0 ng/mL LAB CHEMISTRY METHOD 07/27/2024 2:19 PM EST [facility] Blood Venous blood specimen / Unknown Venipuncture / Unknown 07/27/2024 5:39 AM EST 07/27/2024 12:17 PM EST Stephanie Celis MD LAB BLOOD ORDERABLES Fin al Result Performing Organization Address City/[facility]/ZIP Co de Phone Number [facility] [address] [place] [address], [place] [phone] * (ABNORMAL) Thyroid stimulating hormone (07/27/2024 5:39 AM EST) [facility] TSH 5.52(H) 0.40 - 4.00 mcIU/mL LAB CHEMISTRY METHOD 07/27/2024 2:19 PM EST [facility] Blood Venous blood specimen / Unknown Venipuncture / Unknown 07/27/2024 5:39 AM EST 07/27/2024 12:17 PM EST Stephanie Celis MD LAB BLOOD ORDERABLES Fin al Result Performing Organization Address [facility]/State/ZIP Co de Phone Number [facility] [address] [place] [address], * Magnesium (07/27/2024 5:39 AM EST) [facility] Magnesium 2.5 1.9 - 2.6 mg/dL LAB CHEMISTRY METHOD 07/27/2024 2:12 PM EST [facility] Blood Venous blood specimen / Unknown Venipuncture / Unknown 07/27/2024 5:39 AM EST 07/27/2024 12:17 PM EST Stephanie Celis MD LAB BLOOD ORDERABLES Fin al Result [facility] [address] [place] [address], [place] [phone] * (ABNORMAL) Folate (07/27/2024 5:39 AM EST) [facility] Folate >20.0(H) 2.8 - 17.0 ng/ml LAB CHEMISTRY METHOD 07/27/2024 2:34 PM EST [facility] Blood Venous blood specimen / Unknown Venipuncture / Unknown 07/27/2024 5:39 AM EST 07/27/2024 12:17 PM EST Stephanie Celis MD LAB BLOOD ORDERABLES Fin al Result Performing Organization Address City/[facility]/ZIP Co de Phone Number [facility] [address] [place] [address], [place] [phone] * (ABNORMAL) Vitamin B12 (07/27/2024 5:39 AM EST) [facility] Vitamin B-12 >2,000(H) 250 - 900 pcg/mL LAB CHEMISTRY METHOD 07/27/2024 2:34 PM EST [facility] Blood Venous blood specimen / Unknown Venipuncture / Unknown 07/27/2024 5:39 AM EST 07/27/2024 12:17 PM EST Stephanie Celis MD LAB BLOOD ORDERABLES Fin al Result Performing Organization Address [facility] Co de Phone Number [facility] [address] [place] [address], [place] [phone] * Hepatitis C Screening (05/20/1998) [facility] Hepatitis C Screening Abstracted Per Amado MD HEALTH MAINTENANCE Final Result from Last 3 Months or Most Recently Relevant to Health Maintenance Insurance MEDICARE MEDICAID - [place] Care Teams Program Advisor Relationship Specialty Start Date End Date Nina Lindsay NP [address] [place] [phone] PCP - General 10/07/23
--- OUTSIDE RECORDS SUMMARY | 2024-10-15 16:24 | XMS_ITS | Encounter Summary ---
Author Organization [facility] Address [address] [place] [address] Care Team Providers Care Orchestrator Name Role Phone Neftali Nina Marsh NP Primary Care Provider [phone] Encounter Details Date Type Department Care Team (Late st Contact Info) Description 08/25/2024 Lab Requisition [facility] - Main Lab [address] [facility] [place] [address] Stephanie Celis MD [address] [id number] Encounter for therapeutic drug level monitoring Social [...] LAB CHEMISTRY METHOD 08/25/2024 12:36 PM EST [facility] Blood Venous blood specimen / Unknown Venipuncture / Unknown 08/25/2024 7:32 AM EST 08/25/2024 9:16 AM EST Stephanie Celis MD LAB BLOOD ORDERABLES Fin al Result [facility] [address] [place] [address], documented in this encounter Visit Diagnoses Diagnosis Encounter for therapeutic drug level monitoring documented in this encounter Care Teams Orchestrator Relationship Specialty Start Date End Date Nina Lindsay NP [address] [place] [phone] PCP - General 10/07/23 documented as of this encounter
--- OUTSIDE RECORDS SUMMARY | 2024-10-15 16:24 | XMS_ITS | Encounter Summary ---
Author Organization [facility] Address [address] [place] [address] Care Team Providers Care Side Gluer Name Role Phone Nina Lindsay NP Primary Care Provider [phone] Encounter Details Date Type Department Care Team (Late st Contact Info) Description 07/27/[address] [facility] - Main Lab 299 [facility] [place] [address] Stephanie Celis MD [address] [address] Vitamin D deficiency, unspecified; Chronic kidney disease, stage 3 unspecified (CMS/HCC V24, CMS/HCC V28); Anxiety disorder, unspecified; Unspecified cirrhosis of liver (CMS/HCC V24, CMS/HCC V28); Syphilis, unspecified; Chronic viral hepatitis C ([facility]/HCC V24, CMS/HCC V28); Frequency of micturition; Hyperlipidemia, [...] (ABNORMAL) Vitamin B12 (07/27/2024 5:39 AM EST) [facility] Vitamin B-12 >2,000(H) 250 - 900 pcg/mL LAB CHEMISTRY METHOD 07/27/2024 2:34 PM EST [facility] Blood Venous blood specimen / Unknown Venipuncture / Unknown 07/27/2024 5:39 AM EST 07/27/2024 12:17 PM EST Stephanie Celis MD LAB BLOOD ORDERABLES Fin al Result Performing Organization Address [facility] Co de Phone Number [facility] [address] [place] [address], [place] [phone] * Vitamin D 25 hydroxy (07/27/2024 5:39 AM EST) [facility] Vit D, 25-Hydroxy 55.9 30.0 - 80.0 ng/mL LAB CHEMISTRY METHOD 07/27/2024 2:19 PM EST [facility] Blood Venous blood specimen / Unknown Venipuncture / Unknown 07/27/2024 5:39 AM EST 07/27/2024 12:17 PM EST Stephanie Celis MD LAB BLOOD ORDERABLES Fin al Result Performing Organization Address [facility] de Phone Number [facility] [address] [place] [address], [place] [phone] * Magnesium (07/27/2024 5:39 AM EST) [facility] Magnesium 2.5 1.9 - 2.6 mg/dL LAB CHEMISTRY METHOD 07/27/2024 2:12 PM EST [facility] Blood Venous blood specimen / Unknown Venipuncture / Unknown 07/27/2024 5:39 AM EST 07/27/2024 12:17 PM EST Stephanie Celis MD LAB BLOOD ORDERABLES Fin al Result Performing Organization Address [facility] Co de Phone Number [facility] [address] [place] [address], [place] [phone] * (ABNORMAL) Folate (07/27/2024 5:39 AM EST) [facility] Folate >20.0(H) 2.8 - 17.0 ng/ml LAB CHEMISTRY METHOD 07/27/2024 2:34 PM EST [facility] Blood Venous blood specimen / Unknown Venipuncture / Unknown 07/27/2024 5:39 AM EST 07/27/2024 12:17 PM EST Stephanie Celis MD LAB BLOOD ORDERABLES Fin al Result Performing Organization Address [facility] Co de Phone Number [facility] [address] [place] [address], [place] [phone] * (ABNORMAL) Thyroid stimulating hormone (07/27/2024 5:39 AM EST) Pathologist [facility] TSH 5.52(H) 0.40 - 4.00 mcIU/mL LAB CHEMISTRY METHOD 07/27/2024 2:19 PM EST [facility] Blood Venous blood specimen / Unknown Venipuncture / Unknown 07/27/2024 5:39 AM EST 07/27/2024 12:17 PM EST Stephanie Celis MD LAB BLOOD ORDERABLES Fin al Result Performing Organization Address [facility] de Phone Number [facility] [address] [place] [address], [place] [phone] * (ABNORMAL) Comprehensive metabolic panel (07/27/2024 5:39 AM EST) Pathologist [facility] Sodium 138 133 - 145 mmol/L LAB CHEMISTRY METHOD 07/27/2024 2:12 PM EST [facility] Potassium 4.3 3.5 - 5.5 mmol/L LAB CHEMISTRY METHOD 07/27/2024 2:12 PM EST [facility] Chloride 102 96 - 110 mmol/L LAB CHEMISTRY METHOD 07/27/2024 2:12 PM EST [facility] CO2 30 21 - 32 mmol/L LAB CHEMISTRY METHOD 07/27/2024 2:12 PM [facility] Anion Gap 6 3 - 11 LAB CHEMISTRY METHOD 07/27/2024 2:12 PM [facility] Glucose 115(H) 70 - 100 mg/dL LAB CHEMISTRY METHOD 07/27/2024 2:12 PM [facility] BUN 14 5 - 25 mg/dL LAB CHEMISTRY METHOD 07/27/2024 2:12 PM [facility] Creatinine 1.09 0.50 - 1.10 mg/dL LAB CHEMISTRY METHOD 07/27/2024 2:12 PM [facility] eGFR 58(L) >=60 mL/min/1. 73m2 LAB CHEMISTRY METHOD 07/27/2024 2:12 PM [facility] Comment:Calculation based on the??Chronic Kidney Disease Epidemiology Collaboration (CKD-EPI) equation refit??without adjustment for race. BUN/Creatinine Ratio 12.8 LAB CHEMISTRY METHOD 07/27/2024 2:12 PM [facility] Calcium 8.3(L) 8.5 - 10.5 mg/dL LAB CHEMISTRY METHOD 07/27/2024 2:12 PM [facility] AST (SGOT) 28 10 - 42 unit/L LAB CHEMISTRY METHOD 07/27/2024 2:12 PM [facility] ALT (SGPT) 14 10 - 60 unit/L LAB CHEMISTRY METHOD 07/27/2024 2:12 PM [facility] Alkaline Phosphatase 49 42 - 121 unit/L LAB CHEMISTRY METHOD 07/27/2024 2:12 PM [facility] Total Protein 6.4 6.0 - 8.0 g/dL LAB CHEMISTRY METHOD 07/27/2024 2:12 PM [facility] Albumin 2.7(L) 3.2 - 5.0 g/dL LAB CHEMISTRY METHOD 07/27/2024 2:12 PM [facility] Total Bilirubin 0.6 0.0 - 1.4 mg/dL LAB CHEMISTRY METHOD 07/27/2024 2:12 PM [facility] Blood Venous blood specimen / Unknown Venipuncture / Unknown 07/27/2024 5:39 AM EST 07/27/2024 12:17 PM EST us Stephanie Celis MD LAB BLOOD ORDERABLES Fin al Result [facility] [address] [place] [address], * (ABNORMAL) Complete blood count (07/27/2024 5:39 AM EST) WBC 3.4(L) 4.8 - 10.8 K/mcL LAB HEMETOLOGY METHOD 07/27/2024 1:38 PM [facility] RBC 2.50(L) 3.80 - 4.80 M/mcL LAB HEMETOLOGY METHOD 07/27/2024 1:38 PM [facility] Hemoglobin 10.0(L) 11.5 - 16.0 g/dL LAB HEMETOLOGY METHOD 07/27/2024 1:38 PM [facility] Hematocrit 31.1(L) 35.0 - 47.0 % LAB HEMETOLOGY METHOD 07/27/2024 1:38 PM [facility] MCV 122.4(H) 79.0 - 98.0 FL LAB HEMETOLOGY METHOD 07/27/2024 1:38 PM [facility] MCH 39.4(H) 27.0 - 32.0 pcg LAB HEMETOLOGY METHOD 07/27/2024 1:38 PM [facility] MCHC 32.2 32.0 - 37.0 g/dL LAB HEMETOLOGY METHOD 07/27/2024 1:38 PM [facility] RDW 12.6 11.0 - 15.0 % LAB HEMETOLOGY METHOD 07/27/2024 1:38 PM EST [facility] Platelets 150 130 - 400 K/mcL LAB HEMETOLOGY METHOD 07/27/2024 1:38 PM EST [facility] MPV 9.4 7.0 - 11.0 FL LAB HEMETOLOGY METHOD 07/27/2024 1:38 PM EST [facility] NRBC 0.0 <1.0 % LAB HEMETOLOGY METHOD 07/27/2024 1:38 PM EST [facility] NRBC Absolute 0.00 <0.10 K/mcL LAB HEMETOLOGY METHOD 07/27/2024 1:38 PM EST [facility] Blood Venous blood specimen / Unknown Venipuncture / Unknown 07/27/2024 5:39 AM EST 07/27/2024 12:17 PM EST us Stephanie Celis MD LAB BLOOD ORDERABLES Fin al Result [facility] [address] [place] [address], documented in this encounter Visit Diagnoses Diagnosis Vitamin D deficiency, unspecified Chronic kidney disease, stage 3 unspecified ([facility] V24, [facility] V28) Anxiety disorder, unspecified Unspecified cirrhosis of liver ([facility] V24, [facility] V28) Syphilis, unspecified Chronic viral hepatitis C ([facility] V24, [facility] V28) Chronic hepatitis C without mention of hepatic coma Frequency of micturition Urinary frequency Hyperlipidemia, unspecified Depression, unspecified Noninfective gastroenteritis and colitis, unspecified Unspecified psychosis not due to a substance or known physiological condition ([facility] V24, [facility] V28[facility] Human immunodeficiency virus (HIV) disease ([facility] V24, [facility] V28) Human immunodeficiency virus [HIV] disease Hypothyroidism, unspecified COVID-19 documented in this encounter Care Teams Side Gluer Relationship Specialty Start Date End Date Nina Linsday NP [address] [place] [phone] PCP - General 10/07/23 documented as of this encounter
--- OUTSIDE RECORDS SUMMARY | 2024-10-15 16:24 | XMS_ITS | Encounter Summary ---
Author Organization [facility] Address [address] [place] [address] Care Team Providers Care Skate Maker Name Role Phone Neftali Nina Marsh NP Primary Care Provider [phone] Encounter Details Date Type Department Care Team (Late st Contact Info) Description 07/31/2024 Lab Requisition [facility] Lab [address] [facility] [address] Stephanie Celsi MD [address] [phone] Hyperlipidemia, unspecified; Hypothyroidism, unspecified Social History Tobacco [...] LAB CHEMISTRY METHOD 08/03/2024 12:20 PM EST [facility] Potassium 4.3 3.5 - 5.5 mmol/L LAB CHEMISTRY METHOD 08/03/2024 12:20 PM EST [facility] Chloride 104 96 - 110 mmol/L LAB CHEMISTRY METHOD 08/03/2024 12:20 PM [facility] CO2 28 21 - 32 mmol/L LAB CHEMISTRY METHOD 08/03/2024 12:20 PM [facility] Anion Gap 6 3 - 11 LAB CHEMISTRY METHOD 08/03/2024 12:20 PM [facility] Glucose 107(H) 70 - 100 mg/dL LAB CHEMISTRY METHOD 08/03/2024 12:20 PM [facility] BUN 14 5 - 25 mg/dL LAB CHEMISTRY METHOD 08/03/2024 12:20 PM [facility] Creatinine 1.23(H) 0.50 - 1.10 mg/dL LAB CHEMISTRY METHOD 08/03/2024 12:20 PM [facility] eGFR 50(L) >=60 mL/min/1. 73m2 LAB CHEMISTRY METHOD 08/03/2024 12:20 PM [facility] Comment:Calculation based on the??Chronic Kidney Disease Epidemiology Collaboration (CKD-EPI) equation refit??without adjustment for race. BUN/Creatinine Ratio 11.4 LAB CHEMISTRY METHOD 08/03/2024 12:20 PM [facility] Calcium 8.9 8.5 - 10.5 mg/dL LAB CHEMISTRY METHOD 08/03/2024 12:20 PM [facility] Blood Venous blood specimen / Unknown Venipuncture / Unknown 08/03/2024 7:57 AM EST 08/03/2024 11:09 AM EST us Stephanie Celis MD LAB BLOOD ORDERABLES Fin al Result [facility] [address] [place] [address], * (ABNORMAL) Complete blood count (08/03/2024 7:57 AM EST) WBC 2.5(L) 4.8 - 10.8 K/mcL LAB HEMETOLOGY METHOD 08/03/2024 1:03 PM [facility] RBC 2.60(L) 3.80 - 4.80 M/mcL LAB HEMETOLOGY METHOD 08/03/2024 1:03 PM [facility] Hemoglobin 10.0(L) 11.5 - 16.0 g/dL LAB HEMETOLOGY METHOD 08/03/2024 1:03 PM [facility] Hematocrit 30.5(L) 35.0 - 47.0 % LAB HEMETOLOGY METHOD 08/03/2024 1:03 PM [facility] MCV 117.8(H) 79.0 - 98.0 FL LAB HEMETOLOGY METHOD 08/03/2024 1:03 PM [facility] MCH 38.6(H) 27.0 - 32.0 pcg LAB HEMETOLOGY METHOD 08/03/2024 1:03 PM [facility] MCHC 32.8 32.0 - 37.0 g/dL LAB HEMETOLOGY METHOD 08/03/2024 1:03 PM [facility] RDW 12.2 11.0 - 15.0 % LAB HEMETOLOGY METHOD 08/03/2024 1:03 PM [facility] Platelets 78(L) 130 - 400 K/mcL LAB HEMETOLOGY METHOD 08/03/2024 1:03 PM [facility] Comment:reviewed by slide MPV 9.6 7.0 - 11.0 FL LAB HEMETOLOGY METHOD 08/03/2024 1:03 PM [facility] NRBC 0.0 <1.0 % LAB HEMETOLOGY METHOD 08/03/2024 1:03 PM [facility] NRBC Absolute 0.00 <0.10 K/mcL LAB HEMETOLOGY METHOD 08/03/2024 1:03 PM EST [facility] Blood Venous blood specimen / Unknown Venipuncture / Unknown 08/03/2024 7:57 AM EST 08/03/2024 11:09 AM EST us Stephanie Celis MD LAB BLOOD ORDERABLES Fin al Result [facility] [address] [place] [address], documented in this encounter Visit Diagnoses Diagnosis Hyperlipidemia, unspecified Hypothyroidism, unspecified documented in this encounter Care Teams Skate Maker Relationship Specialty Start Date End Date Nina Lindsay NP [address] [place] [phone] PCP - General 10/07/23 documented as of this encounter
--- OUTSIDE RECORDS SUMMARY | 2024-10-15 16:24 | XMS_ITS | Encounter Summary ---
Author Organization [facility] Address [address] [place] [address] Care Team Providers Care Sales Development Executive Name Role Phone Neftali Nina Marsh NP Primary Care Provider [phone] Encounter Details Date Type Department Care Team (Late st Contact Info) Description 08/11/2024 Lab Requisition [facility] - Main Lab 299 [facility] [employer] [place] [address] Stephanie Celis MD [address] [phone] Altered mental status, unspecified Social History Tobacco [...] reflex microscopic (08/10/2024 2:00 PM EST) Specific [place] Urine 1.019 1.003 - 1.030 LAB URINALYSIS - AUTOMATED METHOD 08/11/2024 11:48 AM EST [facility] pH, Urine 6.0 5.0 - 8.0 pH LAB URINALYSIS - AUTOMATED METHOD 08/11/2024 11:48 AM [facility] Leukocytes, Urine Large(A) Negative LAB URINALYSIS - AUTOMATED METHOD 08/11/2024 11:48 AM [facility] Nitrite, Urine Negative Negative LAB URINALYSIS - AUTOMATED METHOD 08/11/2024 11:48 AM [facility] Protein, Urine 100(A) <=Trace mg/dL LAB URINALYSIS - AUTOMATED METHOD 08/11/2024 11:48 AM [facility] Glucose, Urine Negative Negative mg/dL LAB URINALYSIS - AUTOMATED METHOD 08/11/2024 11:48 AM [facility] Ketones, Urine Trace(A) Negative mg/dL LAB URINALYSIS - AUTOMATED METHOD 08/11/2024 11:48 AM [facility] Urobilinogen , Urine 1.0 0.2 - 1.0 mg/dL LAB URINALYSIS - AUTOMATED METHOD 08/11/2024 11:48 AM [facility] Bilirubin, Urine Small(A) Negative LAB URINALYSIS - AUTOMATED METHOD 08/11/2024 11:48 AM [facility] Blood, Urine Moderate(A) Negative LAB URINALYSIS - AUTOMATED METHOD 08/11/2024 11:48 AM [facility] RBC, Urine 16.3(H) 0 - 4 /HPF LAB URINALYSIS - AUTOMATED METHOD 08/11/2024 11:48 AM [facility] WBC, Urine 1,391.8(H) 0 - 4 /HPF LAB URINALYSIS - AUTOMATED METHOD 08/11/2024 11:48 AM [facility] Squamous Epithelial, Urine 12 0 - 60 /LPF LAB URINALYSIS - AUTOMATED METHOD 08/11/2024 11:48 AM [facility] Bacteria, Urine Many(A) Negative /HPF LAB URINALYSIS - AUTOMATED METHOD 08/11/2024 11:48 AM EST [facility] Hyaline Casts, Urine 0.0 0 - 3 /LPF LAB URINALYSIS - AUTOMATED METHOD 08/11/2024 11:48 AM EST [facility] Urine Urine specimen obtained by clean catch procedure / Unknown Non-blood Collection / Unknown 08/10/2024 2:00 PM EST 08/11/2024 10:50 AM EST us Stephanie Celis MD LAB URINE ORDERABLES Fin al Result [facility] [address] [place] [address], * (ABNORMAL) Culture urine (08/10/2024 2:00 PM EST) Culture, Urine >100,000 CFU/mL Klebsiella pneumoniae ssp pneumoniae(A) SAVANA 08/13/2024 10:17 AM EST [facility] Comment: This is [...] MICROBIOLOGY - GENER AL ORDERABLES Final Result [facility]) [facility] [address] [place] [address], documented in this encounter Visit Diagnoses Diagnosis Altered mental status, unspecified documented in this encounter Care Teams Sales Development Executive Relationship Specialty Start Date End Date Nina Lindsay NP [address] [place] [phone] PCP - General 10/07/23 documented as of this encounter
== END 2024-10-15 11:34 | disposition home or self-care (01) ==
LOC: HO.LNP 11:33
PROVIDERS: PCP Nurse Practitioner Primary Care; Visit Provider Nurse Practitioner Family
DX: N39.0 Urinary tract infection, site not specified (principal); N20.0 Calculus of kidney; R35.0 Frequency of micturition; N89.8 Other specified noninflammatory disorders of vagina; R30.0 Dysuria; N32.81 Overactive bladder
CPT/HCPCS: 51798; 81003; 87086; 99212

== ENCOUNTER 2024-10-15 11:33 | Outpatient (AMB) | payer MEDICARE, MEDICAID, SELFPAY ==
--- NOTE | 2024-10-15 11:35 | A.OFFVIS_ITS ---
Intake Visit Reasons: 6m/PVR Intake Note: Patient presents today for follow up on: frequency and nephrolithiasis Urology Med: none Antibiotic Allergy: Penicillins Blood Thinner: None Pharmacy: [facility] PVR: 0ml's Pressroom Worker Required: No Accompanied by: Unknown Allergies abacavir [ABACAVIR] Allergy (Severe, Verified 10/15/24 13:12) HIVES hydrochlorothiazide [HYDROCHLOROTHIAZIDE] Allergy (Severe, Verified 10/15/24 13:12) HIVES ibuprofen [From MOTRIN] Allergy (Severe, Verified 10/15/24 13:12) HIVES Penicillins [PENICILLINS] Allergy (Severe, Verified 10/15/24 13:12) HIVES tenofovir [From VIREAD] Allergy (Severe, Verified 10/15/24 13:12) HIVES tomato [TOMATO] Allergy (Severe, Verified 10/15/24 13:12) HIVES zidovudine [From RETROVIR] Allergy (Severe, Verified 10/15/24 13:12) HIVES lactose [Lactose] Adverse Reaction (Mild, Verified 10/15/24 13:12) DIARRHEA disoproxail Allergy (Mild, Uncoded 10/15/24 13:12) Unknown Medication List - Last Reconciled 10/15/24 by POLI Manriquez-CATA acetaminophen 500 mg PO Q6H PRN albuterol sulfate 90 mcg/actuation 2 puffs inhalation Q4H PRN atorvastatin 10 mg PO DAILY lapimtjfc-sjrbncyl-fekjnaj ala 50-200-25 mg (Biktarvy) 1 tab PO DAILY calcium carbonate-vitamin D3 600 mg-10 mcg (400 unit) (Calcium 600 + D(3)) 1 tab PO BID chlorhexidine gluconate 0.12% 15 mL PO BID cyanocobalamin (vitamin B-12) (Vitamin B-12) 50 mcg PO DAILY dextran 70-hypromellose (Artificial Tears (PF) drops in a dropperette) 1 drp ophthalmic (eye) QID diazepam (Valium) 5 mg PO Q8H PRN divalproex ER 1,000 mg PO BEDTIME divalproex ER 500 mg PO DAILY docusate sodium 100 mg PO BID PRN fluoride (sodium) 1.1% (Denta 5000 Plus) 1 appl PO DAILY folic acid 1 mg PO DAILY lactase (Lactaid Fast Act) 18,000 units PO QIDWMHS PRN levothyroxine 75 mcg PO DAILY@0600 loperamide 4 mg PO Q4H PRN multivitamin with folic acid 400 mcg (High Potency Multivitamin) 1 tab PO DAILY omeprazole 20 mg PO QAM oxycodone 5 mg PO Q6H PRN quetiapine 200 mg PO TID 30 days sennosides-docusate sodium 8.6-50 mg (Stimulant Laxative Plus) 1 tab PO BID sertraline 100 mg PO DAILY simethicone 80 mg PO TID sodium chloride 0.65% (Saline Nasal) 1 spray intranasal BID sodium chloride 0.65% (Saline Nasal) 1 spray intranasal BID trazodone 100 mg PO BEDTIME wheat dextrin (Benefiber Sugar Free (dextrin)) 1 packet PO BID HPI Comments Details: Adrianne is a 63-year-old female patient of Dr. Lindsay who was accompanied by her social worker school. She has a past medical history of hypothyroidism, history of ETOH has been sober since 1999, diverticulosis, constipation, developmental delay, depression, PTSD, hyperlipidemia, seasonal allergies, history of hep C has since been treated, HIV, nocturia, and urinary frequency. She presents to the office today for follow-up of her lower urinary tract symptoms. In discussion with the patient under social work today she reports having recently been discharged from rehab as she had had two recent falls. Patient and assistant commissioner are questioning potential for UTI as patient has been experiencing vaginal discharge and urinary/bladder pressure. In office urinalysis results were reviewed 2+ leukocytes negative nitrates. Will send for urine culture. PVR 0 mL. Previous workup has included a retroperitoneal ultrasound 05/31 that noted the bladder is well distended and normal. Bladder jets are demonstrated. Pre void bladder volume is approximately 160 mL. Postvoid bladder volume is approximately 10 mL. Bilateral kidneys are normal in size, contour, and echogenicity. Bilateral kidneys with no parenchymal lesions and or hydronephrosis noted. Right kidney with a single 6 mm echogenic focus consistent with a nonobstructing stone. We discussed potential causes for lower urinary tract symptoms patient was experiencing. We discussed potential follow- up with obstetrics gynecology physician given vaginal discharge. Plan For the urinary dysfunction and possible urinary tract infection, I advised increasing fluid intake and observing urination patterns. Bladder scanning show ed emptying was adequate. Urine analysis will guide treatment, should infection be confirmed. Continued home-based therapy is crucial for her mobility recovery. Further evaluations will be considered following lab results as needed to manage her urinary health. Patient was informed and verbally consented to the use of an ambient scribe for clinic note documentation during this visit. Discussion Notes I discussed potential causes of lower urinary tract symptoms and vaginal discharge. I explained that we need a urine sample for accurate diagnosis and that increasing hydration could assist her urinary flow. The importance of fluid intake was emphasized, as was the continuation of her current therapies.. Options will be reevaluated upon obtaining urine culture results. Follow-up will focus on treatment optimization for both her urinary and general health following diagnostic findings. [facility] Medical History Positive serological reaction for syphilis Hypothyroidism Hx of acute pancreatitis Hx of acute renal failure History of ETOH abuse Hx of herpes genitalis History of diverticulosis Constipation History of intravenous drug abuse Developmental delay, mild COVID-19 vaccine series completed Depression PTSD (post-traumatic stress disorder) Hyperlipidemia Seasonal allergies Hx of hepatitis C HIV (human immunodeficiency virus infection) Nocturia Frequency of micturition Surgical History History of colonoscopy Family History Mother Alzheimer disease Breast cancer HTN (hypertension) Paternal Aunt Breast cancer Social History Household Members: None Household Members Other:: [employer] Housing: Apartment Housing Other:: Custodial Are you a primary acute care occupational therapist to a significant other at home: No Do you presently have visiting nurse or other home services: Yes Unable to assess alcohol history related to: Unknown Alcohol intake: never Patient Tobacco Use Status: Never used Tobacco e-Cigarette/Vaping Use: Never Used Second Hand Smoke Exposure: No service: No Sexual orientation: Decline to Answer Female Reproductive History Menstrual Age of Menarche: 11 Review of Systems Const Reports no additional complaints Eyes Reports no additional complaints ENT Reports no additional complaints Card Reports as per [facility] Resp Reports no additional complaints GI Reports as per [facility] Reports as per [facility] Musc Reports as per [facility] Neuro Reports as per [facility] Psych Reports as per [facility] Endo Reports as per [facility] Arian/Lymph Reports as per HPI Aller/Immun Reports no additional complaints Physical Exam Const General: cooperative, comfortable, no acute distress, well developed, alert and awake Orientation/consciousness: patient oriented x3 Limitations: no limitations HEENT Head: Yes normal to inspection, Yes normocephalic and Yes atraumatic Ears: hearing grossly normal bilaterally Eyes General: appearance normal, both eyes and all related structures Neck Neck: Yes normal visual inspection and Yes trachea midline Chest Chest palpation & inspection: normal inspection of the chest Resp Effort & Inspection: normal respiratory effort and able to speak in complete sentences Cardio Rate: regular rate GI Inspection: Yes normal to inspection General: Yes no CVA tenderness Back/Spine/Pelvis Back: no CVA tenderness Skin General skin exam: no rashes or lesions noted Neuro General: patient oriented x3 Extrem General: Yes normal to inspection Psych Appearance: grossly normal and well kempt Mental Status: mental status grossly normal Speech and movement: Normal speech and movement present and Clear speech present Affect: normal affect Attitude: cooperative Thought process: Normal thought process present Thought content: Normal thought content present Insight: Limited insight present (Psych) Judgement: Limited judgement present (Psych) Office Procedures Post Void Residual Post Residual Void Post Void Residual (PVR): 0 [id number] Void Residual by ultrasound Results AMB Urinalysis, Automated UA Leukoctes 125 Patrick/uL Last Edit by Jaycee Degroot on 10/15/24 14:20 UA Nitrite Last Edit by Global Weathermarino Degroot on 10/15/24 14:20 UA Urobilinogen 0.2 mg/dL Last Edit by Movidiusgin Degroot on 10/15/24 14:20 UA Protein 0 mg/dL Last Edit by Global Weathermarino Degroot on 10/15/24 14:20 UA pH 8.0 Last Edit by Global Weathermarino Degroot on 10/15/24 14:20 UA Blood 0 New/uL Last Edit by [email or web address] Degroot on 10/15/24 14:20 UA Specific [place] 1.015 Last Edit by Jaycee Andieemre on 10/15/24 14:20 UA Ketone Last Edit by Jaycee Andieemre on 10/15/24 14:20 UA Bilirubin 0 mg/dL Last Edit by Jaycee Andieemre on 10/15/24 14:20 UA Glucose 0 mg/dL Last Edit by Jaycee Andieemre on 10/15/24 14:20 Results Reviewed Results Reviewed: Laboratory Last Values Urine pH (Auto) 8.0 10/15/24 14:17 Specific [place] (Auto) 1.015 10/15/24 14:17 Urine Protein (Auto) 0 mg/dL 10/15/24 14:17 Glucose (UA)(Auto) 0 mg/dL 10/15/24 14:17 Urine Blood (Auto) 0 New/uL 10/15/24 14:17 Urine Bilirubin (Auto) 0 mg/dL 10/15/24 14:17 Urine Urobilinogen (Auto) 0.2 mg/dL 10/15/24 14:17 Leukocyte Esterase (Auto) 125 Patrick/uL 10/15/24 14:17 Assessment & Plan Assessment & Plan (1) Nephrolithiasis: Code(s): N20.0 - Calculus of kidney Category: Medical (2) Frequency of micturition: Code(s): R35.0 - Frequency of micturition Category: Medical (3) Vaginal discharge: Code(s): N89.8 - Other specified noninflammatory disorders of vagina Category: Medical (4) Dysuria: Code(s): R30.0 - Dysuria Category: Medical Plan In office urinalysis results reviewed with the patient and assistant commissioner today; as noted above; will send for urine culture; will await results for potential treatment. PVR 0 mL. We discussed potential causes for lower urinary tract symptoms patient was experiencing. Discussed increasing fluids. Discussed possible follow-up with obstetrics gynecology physician to address vaginal discharge. Follow-up in 3 months with PVR; or sooner with any issues, concerns, and or questions. Orders: Orders Urine Culture 10/15/24 N39.0 - Urinary tract infection, site not specified AMB Urinalysis Automated 10/15/24 Z13.9 - Encounter for screening, unspecified AMB Post Void Residual by ultrasound 10/15/24 N32.81 - Overactive bladder Patient Instructions: The patient had an opportunity to ask questions regarding the treatment plan. All questions were answered. Physical exam, labs, and imaging were discussed and reviewed in detail. As well as risks, benefits, and discussion of treatment choices. No major barriers to understanding were identified. The patient expressed understanding and agreement with the above treatment plan. The patient was made aware they should contact our office by phone for worsening of their current condition, the appearance of new symptoms, or with any questions or concerns. Compliance is encouraged with any medications and follow up testing that is ordered. It is a privilege to be allowed the opportunity to participate in? your urological care.? Again, if you have any questions or concerns If you have any questions or concerns please do not hesitate to contact me. The office is [phone]. This note is constructed using voice recognition software. While every effort has been made to ensure accuracy sander operator errors may have been included. Yours sincerely, TREVON Marniquez Coding Level of Care Code Est Pt Level 3 (30064) Complex EM visit Add On G2211 Diagnoses Nephrolithiasis N20.0 Frequency of micturition R35.0 Vaginal discharge N89.8 Dysuria R30.0 CPT Codes Post Residual Void - PVR CPT Code: 58687-Bftq Void Residual by ultrasound ([id number])
--- OUTSIDE RECORDS SUMMARY | 2024-10-15 14:06 | XMS_ITS | Encounter Summary ---
Author Organization [facility] Address [address] [place] [address] Care Team Providers Care Surveillance Systems Analyst Name Role Phone Neftali Nina Marsh NP Primary Care Provider [phone] Encounter Details Date Type Department Care Team (Late st Contact Info) Description 09/29/2024 Lab Requisition [facility] - Main Lab [address] [facility] [place] [address] Stephanie Celis MD [address] [phone] Hyperlipidemia, unspecified; Unspecified cirrhosis of liver (CMS/HCC V24, CMS/HCC V28); Chronic kidney disease, stage 3 unspecified (CMS/HCC V24, CMS/HCC V28) Social History Tobacco Use Types Packs/Day Years Used Date Smoking Tobacco: Never Assessed Comments Unknown Sex and Gender Information Value Date Recorded Sex Assigned at Not on file Legal Sex Female 11:02 AM EDT Gender Identity Not on file Sexual Orientation Not on file documented as of this encounter Plan of Treatment Not on file documented as of this encounter Procedures Procedure Name Priority Date/Time Associated Diagnosis Comments COMPLETE BLOOD COUNT Routine 09/29/2024 8:28 AM EDT Hyperlipidemia, unspecified Unspecified cirrhosis of liver (CMS/HCC) Chronic kidney disease, stage 3 unspecified (CMS/HCC) documented in this encounter Results * (ABNORMAL) Complete blood count (09/29/2024 8:28 AM EDT) WBC 4.0(L) 4.8 - 10.8 K/[facility] LAB HEMETOLOGY METHOD 09/29/2024 10:51 AM EDT [facility] RBC 3.50(L) 3.80 - 4.80 M/mcL LAB HEMETOLOGY METHOD 09/29/2024 10:51 AM [facility] Hemoglobin 12.9 11.5 - 16.0 g/dL LAB HEMETOLOGY METHOD 09/29/2024 10:51 AM [facility] Hematocrit 39.1 35.0 - 47.0 % LAB HEMETOLOGY METHOD 09/29/2024 10:51 AM [facility] MCV 111.1(H) 79.0 - 98.0 FL LAB HEMETOLOGY METHOD 09/29/2024 10:51 AM [facility] MCH 36.6(H) 27.0 - 32.0 pcg LAB HEMETOLOGY METHOD 09/29/2024 10:51 AM [facility] MCHC 33.0 32.0 - 37.0 g/dL LAB HEMETOLOGY METHOD 09/29/2024 10:51 AM [facility] RDW 13.1 11.0 - 15.0 % LAB HEMETOLOGY METHOD 09/29/2024 10:51 AM [facility] Platelets 101(L) 130 - 400 K/mcL LAB HEMETOLOGY METHOD 09/29/2024 10:51 AM [facility] MPV 9.5 7.0 - 11.0 FL LAB HEMETOLOGY METHOD 09/29/2024 10:51 AM [facility] NRBC 0.0 <1.0 % LAB HEMETOLOGY METHOD 09/29/2024 10:51 AM [facility] NRBC Absolute 0.00 <0.10 K/mcL LAB HEMETOLOGY METHOD 09/29/2024 10:51 AM [facility] Blood Venous blood specimen / Unknown Venipuncture / Unknown 09/29/2024 8:28 AM EDT 09/29/2024 10:07 AM EDT us Stephanie Celis MD LAB BLOOD ORDERABLES Fin al Result [facility] ([facility]) [facility] [address] [place] [address], documented in this encounter Visit Diagnoses Diagnosis Hyperlipidemia, unspecified Unspecified cirrhosis of liver (CMS/HCC V24, CMS/HCC V28) Chronic kidney disease, stage 3 unspecified (CMS/HCC V24, CMS/HCC V28) documented in this encounter Care Teams Surveillance Systems Analyst Relationship Specialty Start Date End Date Nina Lindsay NP [address] [place] [phone] PCP - General 10/07/23 documented as of this encounter
--- OUTSIDE RECORDS SUMMARY | 2024-10-15 14:06 | XMS_ITS | Encounter Summary ---
Author Organization [facility] Address [address] [place] [address] Care Team Providers Care Cleaner And Presser Name Role Phone Neftali Nina Marsh NP Primary Care Provider [phone] Encounter Details Date Type Department Care Team (Late st Contact Info) Description 08/20/2024 Lab Requisition [facility] - Main Lab [address] [facility] [place] [address] Stephanie Celis MD [address] [address] Acute kidney failure, unspecified (CMS/HCC V24); Chronic kidney disease, stage 3 unspecified (CMS/HCC V24, CMS/HCC V28); Human immunodeficiency virus (HIV) disease (CMS/HCC V24, CMS/HCC V28) Social History Tobacco [...] Associated Diagnosis Comments COMPLETE BLOOD COUNT Routine 08/20/2024 7:52 AM EST Acute kidney failure, unspecified (CMS/HCC) Chronic kidney disease, stage 3 unspecified (CMS/HCC) Human immunodeficiency virus (HIV) disease (CMS/HCC) AMMONIA Routine 08/20/2024 7:52 AM EST Acute kidney failure, unspecified (CMS/HCC) Chronic kidney disease, stage 3 unspecified (CMS/HCC) Human immunodeficiency virus (HIV) disease (CMS/HCC) COMPREHENSIVE METABOLIC PANEL Routine 08/20/2024 7:52 AM EST Acute kidney failure, unspecified (CMS/HCC) Chronic kidney disease, stage 3 unspecified (CMS/HCC) Human immunodeficiency virus (HIV) disease (CMS/HCC) documented in this encounter Results * (ABNORMAL) Ammonia (08/20/2024 7:52 AM EST) Ammonia 50(H) 11 - 35 mcmol/L LAB CHEMISTRY METHOD 08/20/2024 9:05 AM EST [facility] Blood Venous blood specimen / Unknown Venipuncture / Unknown 08/20/2024 7:52 AM EST 08/20/2024 8:36 AM EST Stephanie Celis MD LAB BLOOD ORDERABLES Fin al Result [facility] [address] [place] [address], * (ABNORMAL) Comprehensive metabolic panel (08/20/2024 7:52 AM EST) Sodium 139 133 - 145 mmol/L LAB CHEMISTRY METHOD 08/20/2024 9:[address] [facility] Potassium 4.2 3.5 - 5.5 mmol/L LAB CHEMISTRY METHOD 08/20/2024 9:[address] [facility] Chloride 104 96 - 110 mmol/L LAB CHEMISTRY METHOD 08/20/2024 9:[address] [facility] CO2 31 21 - 32 mmol/L LAB CHEMISTRY METHOD 08/20/2024 9:[address] [facility] Anion Gap 4 3 - 11 LAB CHEMISTRY METHOD 08/20/2024 9:[address] [facility] Glucose 116(H) 70 - 100 mg/dL LAB CHEMISTRY METHOD 08/20/2024 9:[address] [facility] BUN 14 5 - 25 mg/dL LAB CHEMISTRY METHOD 08/20/2024 9:[address] [facility] Creatinine 1.54(H) 0.50 - 1.10 mg/dL LAB CHEMISTRY METHOD 08/20/2024 9:[address] [facility] eGFR 38(L) >=60 mL/min/1. 73m2 LAB CHEMISTRY METHOD 08/20/2024 9:[address] [facility] Comment:Calculation based on the??Chronic Kidney Disease Epidemiology Collaboration (CKD-EPI) equation refit??without adjustment for race. BUN/Creatinine Ratio 9.1 LAB CHEMISTRY METHOD 08/20/2024 9:[address] [facility] Calcium 8.5 8.5 - 10.5 mg/dL LAB CHEMISTRY METHOD 08/20/2024 9:[address] [facility] AST (SGOT) 22 10 - 42 unit/L LAB CHEMISTRY METHOD 08/20/2024 9:[address] [facility] ALT (SGPT) 11 10 - 60 unit/L LAB CHEMISTRY METHOD 08/20/2024 9:[address] [facility] Alkaline Phosphatase 38(L) 42 - 121 unit/L LAB CHEMISTRY METHOD 08/20/2024 9:[address] [facility] Total Protein 5.9(L) 6.0 - 8.0 g/dL LAB CHEMISTRY METHOD 08/20/2024 9:[address] [facility] Albumin 2.6(L) 3.2 - 5.0 g/dL LAB CHEMISTRY METHOD 08/20/2024 9:[address] [facility] Total Bilirubin 0.6 0.0 - 1.4 mg/dL LAB CHEMISTRY METHOD 08/20/2024 9:[address] [facility] Blood Venous blood specimen / Unknown Venipuncture / Unknown 08/20/2024 7:52 AM EST 08/20/2024 8:36 AM EST Stephanie Celis MD LAB BLOOD ORDERABLES Fin al Result [facility] [address] [place] [address], * (ABNORMAL) Complete blood count (08/20/2024 7:52 AM EST) WBC 2.6(L) 4.8 - 10.8 K/mcL LAB HEMETOLOGY METHOD 08/20/2024 9:[address] [facility] RBC 2.70(L) 3.80 - 4.80 M/mcL LAB HEMETOLOGY METHOD 08/20/2024 9:[address] [facility] Hemoglobin 10.2(L) 11.5 - 16.0 g/dL LAB HEMETOLOGY METHOD 08/20/2024 9:[address] [facility] Hematocrit 31.1(L) 35.0 - 47.0 % LAB HEMETOLOGY METHOD 08/20/2024 9:[address] [facility] MCV 116.0(H) 79.0 - 98.0 FL LAB HEMETOLOGY METHOD 08/20/2024 9:[address] [facility] MCH 38.1(H) 27.0 - 32.0 pcg LAB HEMETOLOGY METHOD 08/20/2024 9:[address] [facility] MCHC 32.8 32.0 - 37.0 g/dL LAB HEMETOLOGY METHOD 08/20/2024 9:[address] [facility] RDW 13.2 11.0 - 15.0 % LAB HEMETOLOGY METHOD 08/20/2024 9:[address] [facility] Platelets 46(L) 130 - 400 K/mcL LAB HEMETOLOGY METHOD 08/20/2024 9:[address] [facility] Comment:previously verified by slide MPV 9.4 7.0 - 11.0 FL LAB HEMETOLOGY METHOD 08/20/2024 9:31 AM EST [facility] NRBC 0.0 <1.0 % LAB HEMETOLOGY METHOD 08/20/2024 9:31 AM EST [facility] NRBC Absolute 0.00 <0.10 K/mcL LAB HEMETOLOGY METHOD 08/20/2024 9:31 AM EST [facility] Blood Venous blood specimen / Unknown Venipuncture / Unknown 08/20/2024 7:52 AM EST 08/20/2024 8:36 AM EST us Stephanie Celis MD LAB BLOOD ORDERABLES Fin al Result [facility] [address] [place] [address], documented in this encounter Visit Diagnoses Diagnosis Acute kidney failure, unspecified (CMS/[facility] V24) Acute kidney failure, unspecified Chronic kidney disease, stage 3 unspecified (CMS/HCC V24, [facility] V28) Human immunodeficiency virus (HIV) disease ([facility] V24, [facility] V28) Human immunodeficiency virus [HIV] disease documented in this encounter Care Teams Cleaner And Presser Relationship Specialty Start Date End Date Nina Lindsay NP [address] [place] [phone] PCP - General 10/07/23 documented as of this encounter
--- OUTSIDE RECORDS SUMMARY | 2024-10-15 14:06 | XMS_ITS | Encounter Summary ---
Author Organization [facility] Address [address] [place] [address] Care Team Providers Care Administrative Support Technician Name Role Phone Neftali Nina Marsh NP Primary Care Provider [phone] Encounter Details Date Type Department Care Team (Late st Contact Info) Description 08/11/2024 Lab Requisition [facility] - Main Lab [address] [facility] [place] [address] Stephanie Celis MD [address] [phone] Altered mental status, unspecified Social History Tobacco Use Types Packs/Day Years [...] Procedure Name Priority Date/Time Associated Diagnosis Comments URINALYSIS WITH REFLEX MICROSCOPIC Routine 08/10/2024 2:00 PM EST Altered mental status, unspecified URINALYSIS WITH REFLEX MICROSCOPIC Routine 08/10/2024 2:00 PM EST Altered mental status, unspecified CULTURE URINE Routine 08/10/2024 2:00 PM EST Altered mental status, unspecified documented in this encounter Results * (ABNORMAL) Urinalysis with reflex microscopic (08/10/2024 2:00 PM EST) Specific [place] Urine 1.019 1.003 - 1.030 LAB URINALYSIS - AUTOMATED METHOD 08/11/2024 11:48 AM EST [facility] pH, Urine 6.0 5.0 - 8.0 pH LAB URINALYSIS - AUTOMATED METHOD 08/11/2024 11:48 AM [facility] Leukocytes, Urine Large(A) Negative LAB URINALYSIS - AUTOMATED METHOD 08/11/2024 11:48 AM [facility] Nitrite, Urine Negative Negative LAB URINALYSIS - AUTOMATED METHOD 08/11/2024 11:48 AM [facility] Protein, Urine 100(A) <=Trace mg/dL LAB URINALYSIS - AUTOMATED METHOD 08/11/2024 11:48 AM [facility] Glucose, Urine Negative Negative mg/dL LAB URINALYSIS - AUTOMATED METHOD 08/11/2024 11:48 AM [facility] Ketones, Urine Trace(A) Negative mg/dL LAB URINALYSIS - AUTOMATED METHOD 08/11/2024 11:48 AM [facility] Urobilinogen , Urine 1.0 0.2 - 1.0 mg/dL LAB URINALYSIS - AUTOMATED METHOD 08/11/2024 11:48 AM [facility] Bilirubin, Urine Small(A) Negative LAB URINALYSIS - AUTOMATED METHOD 08/11/2024 11:48 AM [facility] Blood, Urine Moderate(A) Negative LAB URINALYSIS - AUTOMATED METHOD 08/11/2024 11:48 AM [facility] RBC, Urine 16.3(H) 0 - 4 /HPF LAB URINALYSIS - AUTOMATED METHOD 08/11/2024 11:48 AM [facility] WBC, Urine 1,391.8(H) 0 - 4 /HPF LAB URINALYSIS - AUTOMATED METHOD 08/11/2024 11:48 AM [facility] Squamous Epithelial, Urine 12 0 - 60 /LPF LAB URINALYSIS - AUTOMATED METHOD 08/11/2024 11:48 AM [facility] Bacteria, Urine Many(A) Negative /HPF LAB URINALYSIS - AUTOMATED METHOD 08/11/2024 11:[address] [facility] Hyaline Casts, Urine 0.0 0 - 3 /LPF LAB URINALYSIS - AUTOMATED METHOD 08/11/2024 11:[address] [facility] Urine Urine specimen obtained by clean catch procedure / Unknown Non-blood Collection / Unknown 08/10/2024 2:00 PM EST 08/11/2024 10:50 AM EST us Stephanie Celis MD LAB URINE ORDERABLES Fin al Result [facility] [address] [place] [address], * (ABNORMAL) Culture urine (08/10/2024 2:00 PM EST) Culture, Urine >100,000 CFU/mL Klebsiella pneumoniae ssp pneumoniae(A) SAVANA 08/13/2024 10:[address] [facility] Comment: This is an edited result. Previous organism was Gram negative bacilli on 08/12/2024 at 0804 EST. Urine Urine specimen obtained by clean catch procedure / Unknown Non-blood Collection / Unknown 08/10/2024 2:00 PM EST 08/11/2024 10:50 AM EST Narrative Organism Antibiotic Method Susceptibility Klebsiella pneumoniae ssp pneumoniae Amoxicillin/Clavulanate SAVANA <=2 ug/ml: Susceptible Klebsiella pneumoniae ssp pneumoniae Ampicillin/Sulbactam SAVANA 4 ug/ml: Susceptible Klebsiella pneumoniae ssp pneumoniae Piperacillin/Tazobactam SAVANA <=4 ug/ml: Susceptible Klebsiella pneumoniae ssp pneumoniae Cefazolin (Urine) SAVANA 2 ug/ml: Susceptible Klebsiella pneumoniae ssp pneumoniae Cefoxitin SAVANA <=4 ug/ml: Susceptible Klebsiella pneumoniae ssp pneumoniae Ceftazidime SAVANA <=0.5 ug/ml: Susceptible Klebsiella pneumoniae ssp pneumoniae Ceftriaxone SAVANA <=0.25 ug/ml: Susceptible Klebsiella pneumoniae ssp pneumoniae Cefepime SAVANA <=0.12 ug/ml: Susceptible Klebsiella pneumoniae ssp pneumoniae Meropenem SAVANA <=0.25 ug/ml: Susceptible Klebsiella pneumoniae ssp pneumoniae Amikacin SAVANA <=1 ug/ml: Susceptible Klebsiella pneumoniae ssp pneumoniae Gentamicin SAVANA <=1 ug/ml: Susceptible Klebsiella pneumoniae ssp pneumoniae Ciprofloxacin SAVANA <=0.06 ug/ml: Susceptible Klebsiella pneumoniae ssp pneumoniae Levofloxacin SAVANA <=0.12 ug/ml: Susceptible Klebsiella pneumoniae ssp pneumoniae Nitrofurantoin SAVANA 32 ug/ml: Susceptible Klebsiella pneumoniae ssp pneumoniae Trimethoprim/Sulfamethoxazo le SAVANA <=20 ug/ml: Susceptible us Stephanie Celis MD LAB MICROBIOLOGY - GENER AL ORDERABLES Final Result [facility] [address] [place] [address], documented in this encounter Visit Diagnoses Diagnosis Altered mental status, unspecified documented in this encounter Care Teams Administrative Support Technician Relationship Specialty Start Date End Date Nina Linsday NP [address] [place] [phone] PCP - General 10/07/23 documented as of this encounter
--- OUTSIDE RECORDS SUMMARY | 2024-10-15 14:06 | XMS_ITS | Encounter Summary ---
Author Organization [facility] Address [address] [place] [address] Care Team Providers Care Search Lead Name Role Phone Neftali Nina Marsh NP Primary Care Provider [phone] Encounter Details Date Type Department Care Team (Late st Contact Info) Description 08/26/2024 Lab Requisition [facility] Lab [address] [facility] [place] [address] Stephanie Celis MD [address] [phone] Anemia, unspecified Social History Tobacco Use Types Packs/Day [...] Associated Diagnosis Comments COMPLETE BLOOD COUNT Routine 08/27/2024 7:46 AM EST Anemia, unspecified documented in this encounter Results * (ABNORMAL) Complete blood count (08/27/2024 7:46 AM EST) WBC 1.9(LL) 4.8 - 10.8 K/mcL LAB HEMETOLOGY METHOD 08/27/2024 12:41 PM EST [facility] RBC 2.60(L) 3.80 - 4.80 M/mcL LAB HEMETOLOGY METHOD 08/27/2024 12:41 PM EST [facility] Hemoglobin 9.8(L) 11.5 - 16.0 g/dL LAB HEMETOLOGY METHOD 08/27/2024 12:41 PM [facility] Hematocrit 30.2(L) 35.0 - 47.0 % LAB HEMETOLOGY METHOD 08/27/2024 12:41 PM [facility] MCV 115.7(H) 79.0 - 98.0 FL LAB HEMETOLOGY METHOD 08/27/2024 12:41 PM [facility] MCH 37.5(H) 27.0 - 32.0 pcg LAB HEMETOLOGY METHOD 08/27/2024 12:41 PM [facility] MCHC 32.5 32.0 - 37.0 g/dL LAB HEMETOLOGY METHOD 08/27/2024 12:41 PM [facility] RDW 13.2 11.0 - 15.0 % LAB HEMETOLOGY METHOD 08/27/2024 12:41 PM [facility] Platelets 30(L) 130 - 400 K/mcL LAB HEMETOLOGY METHOD 08/27/2024 12:41 PM [facility] Comment:previously verified by slide MPV 9.9 7.0 - 11.0 FL LAB HEMETOLOGY METHOD 08/27/2024 12:41 PM [facility] NRBC 0.0 <1.0 % LAB HEMETOLOGY METHOD 08/27/2024 12:41 PM [facility] NRBC Absolute 0.00 <0.10 K/mcL LAB HEMETOLOGY METHOD 08/27/2024 12:41 PM [facility] Blood Venous blood specimen / Unknown 08/27/2024 7:46 AM EST 08/27/2024 11:46 AM EST us Stephanie Celis MD LAB BLOOD ORDERABLES Fin al Result [facility] [address] [place] [address], documented in this encounter Visit Diagnoses Diagnosis Anemia, unspecified documented in this encounter Care Teams Search Lead Relationship Specialty Start Date End Date Nina Lindsay, WENDY [address] [place] [address] [place] [phone] PCP - General 10/07/23 documented as of this encounter
--- OUTSIDE RECORDS SUMMARY | 2024-10-15 14:06 | XMS_ITS | Encounter Summary ---
Author Organization [facility] Address [address] [place] [address] Care Team Providers Care Monotype Mechanic Name Role Phone Neftali Nina Marsh NP Primary Care Provider [phone] Encounter Details Date Type Department Care Team (Late st Contact Info) Description 09/16/2024 Lab Requisition [facility] - Main Lab [address] [facility] [place] [address] Stephanie Celis MD [address] [phone] Hyperlipidemia, unspecified; Unspecified cirrhosis of liver (CMS/HCC [...] Associated Diagnosis Comments COMPLETE BLOOD COUNT Routine 09/16/2024 6:47 AM EDT Hyperlipidemia, unspecified Unspecified cirrhosis of liver (CMS/HCC) Chronic kidney disease, stage 3 unspecified (CMS/HCC) BASIC METABOLIC PANEL Routine 09/16/2024 6:47 AM EDT Hyperlipidemia, unspecified Unspecified cirrhosis of liver (CMS/HCC) Chronic kidney disease, stage 3 unspecified (CMS/HCC) documented in this encounter Results * (ABNORMAL) Basic metabolic panel (09/16/2024 6:47 AM EDT) Sodium 139 133 - 145 mmol/L LAB CHEMISTRY METHOD 09/16/2024 11:36 AM [facility] Potassium 3.8 3.5 - 5.5 mmol/L LAB CHEMISTRY METHOD 09/16/2024 11:36 AM [facility] Chloride 104 96 - 110 mmol/L LAB CHEMISTRY METHOD 09/16/2024 11:36 AM [facility] CO2 26 21 - 32 mmol/L LAB CHEMISTRY METHOD 09/16/2024 11:36 AM [facility] Anion Gap 9 3 - 11 LAB CHEMISTRY METHOD 09/16/2024 11:36 AM [facility] Glucose 102(H) 70 - 100 mg/dL LAB CHEMISTRY METHOD 09/16/2024 11:36 AM [facility] BUN 13 5 - 25 mg/dL LAB CHEMISTRY METHOD 09/16/2024 11:36 AM [facility] Creatinine 1.25(H) 0.50 - 1.10 mg/dL LAB CHEMISTRY METHOD 09/16/2024 11:36 AM [facility] eGFR 49(L) >=60 mL/min/1. 73m2 LAB CHEMISTRY METHOD 09/16/2024 11:36 AM [facility] Comment:Calculation based on the??Chronic Kidney Disease Epidemiology Collaboration (CKD-EPI) equation refit??without adjustment for race. BUN/Creatinine Ratio 10.4 LAB CHEMISTRY METHOD 09/16/2024 11:36 AM [facility] Calcium 8.6 8.5 - 10.5 mg/dL LAB CHEMISTRY METHOD 09/16/2024 11:36 AM [facility] Blood Venous blood specimen / Unknown Venipuncture / Unknown 09/16/2024 6:47 AM EDT 09/16/2024 10:10 AM EDT Stephanie Celis MD LAB BLOOD ORDERABLES Fin al Result [facility] [address] [place] [address], * (ABNORMAL) Complete blood count (09/16/2024 6:47 AM EDT) WBC 2.1(L) 4.8 - 10.8 K/mcL LAB HEMETOLOGY METHOD 09/16/2024 11:08 AM EDT [facility] RBC 2.70(L) 3.80 - 4.80 M/mcL LAB HEMETOLOGY METHOD 09/16/2024 11:08 AM EDT [facility] Hemoglobin 10.1(L) 11.5 - 16.0 g/dL LAB HEMETOLOGY METHOD 09/16/2024 11:08 AM [facility] Hematocrit 31.0(L) 35.0 - 47.0 % LAB HEMETOLOGY METHOD 09/16[facility]2024 [facility] MCV 116.1(H) 79.0 - 98.0 FL LAB HEMETOLOGY METHOD 09/16/2024 11:08 AM [facility] MCH 37.8(H) 27.0 - 32.0 pcg LAB HEMETOLOGY METHOD 09/16/2024 11:08 [facility] MCHC 32.6 32.0 - 37.0 g/dL LAB HEMETOLOGY METHOD 09/16/2024 11:08 [facility] RDW 13.3 11.0 - 15.0 % LAB HEMETOLOGY METHOD 09/16/2024 11:08 AM [facility] Platelets 68(L) 130 - 400 K/mcL LAB HEMETOLOGY METHOD 09/16/2024 11:08 AM [facility] Comment:previously verified by slide MPV 9.1 7.0 - 11.0 FL LAB HEMETOLOGY METHOD 09/16/2024 11:08 AM EDT [facility] NRBC 1.0(H) <1.0 % LAB HEMETOLOGY METHOD 09/16/2024 11:08 AM EDT [facility] NRBC Absolute 0.02 <0.10 K/mcL LAB HEMETOLOGY METHOD 09/16/2024 11:08 AM EDT [facility] Blood Venous blood specimen / Unknown Venipuncture / Unknown 09/16/2024 6:47 AM EDT 09/16/2024 10:10 AM EDT us Stephanie Celis MD LAB BLOOD ORDERABLES Fin al Result [facility] [address] [place] [address], documented in this encounter Visit Diagnoses Diagnosis Hyperlipidemia, unspecified Unspecified cirrhosis of liver (CMS/HCC V24, CMS/HCC V28) Chronic kidney disease, stage 3 unspecified (CMS/HCC V24, CMS/HCC V28) documented in this encounter Care Teams Monotype Mechanic Relationship Specialty Start Date End Date Nina Lindsay NP [address] [place] [phone] PCP - General 10/07/23 documented as of this encounter
--- OUTSIDE RECORDS SUMMARY | 2024-10-15 14:06 | XMS_ITS | Encounter Summary ---
Author Organization [facility] Address [address] [place] [address] Care Team Providers Care Experimental Machining Lab Manager Name Role Phone Neftali Nina Marsh NP Primary Care Provider [phone] Encounter Details Date Type Department Care Team (Late st Contact Info) Description 08/15/2024 Lab Requisition [facility] Lab [address] [facility] [place] [address] Stephanie Celis MD [address] [phone] Hyperlipidemia, unspecified; Hypothyroidism, unspecified Social History Tobacco Use Types Packs/Day [...] Associated Diagnosis Comments COMPLETE BLOOD COUNT Routine 08/17/2024 5:27 AM EST Hyperlipidemia, unspecified Hypothyroidism, unspecified BASIC METABOLIC PANEL Routine 08/17/2024 5:27 AM EST Hyperlipidemia, unspecified Hypothyroidism, unspecified documented in this encounter Results * (ABNORMAL) Basic metabolic panel (08/17/2024 5:27 AM EST) Sodium 139 133 - 145 mmol/L LAB CHEMISTRY METHOD 08/17/2024 11:29 AM EST [facility] Potassium 3.8 3.5 - 5.5 mmol/L LAB CHEMISTRY METHOD 08/17/2024 11:29 AM EST [facility] Chloride 103 96 - 110 mmol/L LAB CHEMISTRY METHOD 08/17/2024 11:29 AM [facility] CO2 30 21 - 32 mmol/L LAB CHEMISTRY METHOD 08/17/2024 11:29 AM [facility] Anion Gap 6 3 - 11 LAB CHEMISTRY METHOD 08/17/2024 11:29 AM [facility] Glucose 98 70 - 100 mg/dL LAB CHEMISTRY METHOD 08/17/2024 11:29 AM [facility] BUN 18 5 - 25 mg/dL LAB CHEMISTRY METHOD 08/17/2024 11:29 AM [facility] Creatinine 1.57(H) 0.50 - 1.10 mg/dL LAB CHEMISTRY METHOD 08/17/2024 11:29 AM [facility] eGFR 37(L) >=60 mL/min/1. 73m2 LAB CHEMISTRY METHOD 08/17/2024 11:29 AM [facility] Comment:Calculation based on the??Chronic Kidney Disease Epidemiology Collaboration (CKD-EPI) equation refit??without adjustment for race. BUN/Creatinine Ratio 11.5 LAB CHEMISTRY METHOD 08/17/2024 11:29 AM [facility] Calcium 8.6 8.5 - 10.5 mg/dL LAB CHEMISTRY METHOD 08/17/2024 11:29 AM [facility] Blood Venous blood specimen / Unknown Venipuncture / Unknown 08/17/2024 5:27 AM EST 08/17/2024 10:16 AM EST us Stephanie Celis MD LAB BLOOD ORDERABLES Fin al Result [facility] [address] [place] [address], * (ABNORMAL) Complete blood count (08/17/2024 5:27 AM EST) WBC 2.6(L) 4.8 - 10.8 K/mcL LAB HEMETOLOGY METHOD 08/17/2024 10:38 AM [facility] RBC 2.70(L) 3.80 - 4.80 M/mcL LAB HEMETOLOGY METHOD 08/17/2024 10:38 AM [facility] Hemoglobin 10.1(L) 11.5 - 16.0 g/dL LAB HEMETOLOGY METHOD 08/17/2024 10:38 AM [facility] Hematocrit 31.7(L) 35.0 - 47.0 % LAB HEMETOLOGY METHOD 08/17/2024 10:38 AM [facility] MCV 118.7(H) 79.0 - 98.0 FL LAB HEMETOLOGY METHOD 08/17/2024 10:38 AM [facility] MCH 37.8(H) 27.0 - 32.0 pcg LAB HEMETOLOGY METHOD 08/17/2024 10:38 AM [facility] MCHC 31.9(L) 32.0 - 37.0 g/dL LAB HEMETOLOGY METHOD 08/17/2024 10:38 AM [facility] RDW 13.2 11.0 - 15.0 % LAB HEMETOLOGY METHOD 08/17/2024 10:38 AM [facility] Platelets 50(L) 130 - 400 K/mcL LAB HEMETOLOGY METHOD 08/17/2024 10:38 AM [facility] LAB Comment:previously verified by slide MPV 9.6 7.0 - 11.0 FL LAB HEMETOLOGY METHOD 08/17/2024 10:38 AM [facility] NRBC 0.0 <1.0 % LAB HEMETOLOGY METHOD 08/17/2024 10:38 AM [facility] LAB NRBC Absolute 0.00 <0.10 K/mcL LAB HEMETOLOGY METHOD 08/17/2024 10:38 AM EST [facility] Blood Venous blood specimen / Unknown Venipuncture / Unknown 08/17/2024 5:27 AM EST 08/17/2024 10:16 AM EST us Stephanie Celis MD LAB BLOOD ORDERABLES Fin al Result [facility] [address] [place] [address], documented in this encounter Visit Diagnoses Diagnosis Hyperlipidemia, unspecified Hypothyroidism, unspecified documented in this encounter Care Teams Experimental Machining Lab Manager Relationship Specialty Start Date End Date Nina Lindsay NP [address] [place] [phone] PCP - General 10/07/23 documented as of this encounter
--- OUTSIDE RECORDS SUMMARY | 2024-10-15 14:06 | XMS_ITS | Encounter Summary ---
Author Organization [facility] Address [address] [place] [address] Care Team Providers Care Welcome Hostess Name Role Phone Neftali Nina Marsh NP Primary Care Provider Encounter Details Date Type Department Care Team (Late st Contact Info) Description 08/13/2024 Lab Requisition [facility] Lab [address] [facility] [place] [address] Stephanie Celis MD [address] [phone] Human immunodeficiency virus (HIV) disease (CMS/HCC V24, CMS/HCC V28); Noninfective gastroenteritis and colitis, unspecified; Altered mental status, unspecified; Vitamin D deficiency, unspecified Social History Tobacco Use Types Packs/Day [...] Associated Diagnosis Comments COMPLETE BLOOD COUNT Routine 08/13/2024 7:22 AM EST Human immunodeficiency virus (HIV) disease (CMS/[facility]) Noninfective gastroenteritis and colitis, unspecified Altered mental status, unspecified Vitamin D deficiency, unspecified documented in this encounter Results * (ABNORMAL) Complete blood count (08/13/2024 7:22 AM EST) [facility] WBC 2.6(L) 4.8 - 10.8 K/[facility] LAB HEMETOLOGY METHOD 08/13/2024 10:51 AM EST [facility] RBC 2.50(L) 3.80 - 4.80 M/mcL LAB HEMETOLOGY METHOD 08/13/2024 10:51 AM [facility] Hemoglobin 9.6(L) 11.5 - 16.0 g/dL LAB HEMETOLOGY METHOD 08/13/2024 10:51 AM [facility] LAB Hematocrit 29.0(L) 35.0 - 47.0 % LAB HEMETOLOGY METHOD 08/13/2024 10:51 AM [facility] LAB MCV 115.5(H) 79.0 - 98.0 FL LAB HEMETOLOGY METHOD 08/13/2024 10:51 AM [facility] LAB MCH 38.2(H) 27.0 - 32.0 pcg LAB HEMETOLOGY METHOD 08/13/2024 10:51 AM [facility] LAB MCHC 33.1 32.0 - 37.0 g/dL LAB HEMETOLOGY METHOD 08/13/2024 10:51 AM [facility] RDW 12.2 11.0 - 15.0 % LAB HEMETOLOGY METHOD 08/13/2024 10:51 AM [facility] Platelets 38(L) 130 - 400 K/mcL LAB HEMETOLOGY METHOD 08/13/2024 10:51 AM [facility] LAB Comment:previously verified by slide MPV 9.4 7.0 - 11.0 FL LAB HEMETOLOGY METHOD 08/13/2024 10:51 AM [facility] NRBC 0.0 <1.0 % LAB HEMETOLOGY METHOD 08/13/2024 10:51 AM [facility] NRBC Absolute 0.00 <0.10 K/mcL LAB HEMETOLOGY METHOD 08/13/2024 10:51 AM [facility] Blood Venous blood specimen / Unknown Venipuncture / Unknown 08/13/2024 7:22 AM EST 08/13/2024 9:57 AM EST us Stephanie Celis MD LAB BLOOD ORDERABLES Fin al Result [facility] [address] [place] [address], documented in this encounter Visit Diagnoses Diagnosis Human immunodeficiency virus (HIV) disease ([facility] V24, [facility] V28) Human immunodeficiency virus [HIV] disease Noninfective gastroenteritis and colitis, unspecified Altered mental status, unspecified Vitamin D deficiency, unspecified documented in this encounter Care Teams Welcome Hostess Relationship Specialty Start Date End Date Nina Lindsay NP [address] [place] [phone] PCP - General 10/07/23 documented as of this encounter
--- OUTSIDE RECORDS SUMMARY | 2024-10-15 14:06 | XMS_ITS | Encounter Summary ---
Author Organization [facility] Address [address] [place] [address] Care Team Providers Care Panelbeater Name Role Phone Nina Lindsay NP Primary Care Provider [phone] Encounter Details Date Type Department Care Team (Late st Contact Info) Description 09/08/2024 Lab Requisition [facility] - Main Lab 299 [facility] [place] [address] Stephanie Celis MD [address] [phone] Other care home (current) drug therapy Social History Tobacco Use Types Packs/Day Years [...] Associated Diagnosis Comments COMPLETE BLOOD COUNT Routine 09/08/2024 7:20 AM EST Other care home (current) drug therapy BASIC METABOLIC PANEL Routine 09/08/2024 7:20 AM EST Other terminal operations manager (current) drug therapy documented in this encounter Results * (ABNORMAL) Basic metabolic panel (09/08/2024 7:20 AM EST) Sodium 140 133 - 145 mmol/L LAB CHEMISTRY METHOD 09/08/2024 10:01 AM EST [facility] Potassium 4.2 3.5 - 5.5 mmol/L LAB CHEMISTRY METHOD 09/08/2024 10:01 AM EST [facility] Chloride 103 96 - 110 mmol/L LAB CHEMISTRY METHOD 09/08/2024 10:01 AM [facility] CO2 26 21 - 32 mmol/L LAB CHEMISTRY METHOD 09/08/2024 10:01 AM [facility] Anion Gap 11 3 - 11 LAB CHEMISTRY METHOD 09/08/2024 10:01 AM [facility] Glucose 109(H) 70 - 100 mg/dL LAB CHEMISTRY METHOD 09/08/2024 10:01 AM [facility] BUN 9 5 - 25 mg/dL LAB CHEMISTRY METHOD 09/08/2024 10:01 AM [facility] Creatinine 1.08 0.50 - 1.10 mg/dL LAB CHEMISTRY METHOD 09/08/2024 10:01 AM [facility] eGFR 58(L) >=60 mL/min/1. 73m2 LAB CHEMISTRY METHOD 09/08/2024 10:01 AM [facility] Comment:Calculation based on the??Chronic Kidney Disease Epidemiology Collaboration (CKD-EPI) equation refit??without adjustment for race. BUN/Creatinine Ratio 8.3 LAB CHEMISTRY METHOD 09/08/2024 10:01 AM [facility] Calcium 8.6 8.5 - 10.5 mg/dL LAB CHEMISTRY METHOD 09/08/2024 10:01 AM [facility] Blood Venous blood specimen / Unknown Venipuncture / Unknown 09/08/2024 7:20 AM EST 09/08/2024 9:03 AM EST us Stephanie Celis MD LAB BLOOD ORDERABLES Fin al Result [facility] LAB [address] [place] [address], * (ABNORMAL) Complete blood count (09/08/2024 7:20 AM EST) WBC 2.1(L) 4.8 - 10.8 K/mcL LAB HEMETOLOGY METHOD 09/08/2024 10:40 AM [facility] RBC 2.80(L) 3.80 - 4.80 M/mcL LAB HEMETOLOGY METHOD 09/08/2024 10:40 AM [facility] Hemoglobin 10.6(L) 11.5 - 16.0 g/dL LAB HEMETOLOGY METHOD 09/08/2024 10:40 AM [facility] Hematocrit 31.8(L) 35.0 - 47.0 % LAB HEMETOLOGY METHOD 09/08/2024 10:40 AM [facility] MCV 113.2(H) 79.0 - 98.0 FL LAB HEMETOLOGY METHOD 09/08/2024 10:40 AM [facility] MCH 37.7(H) 27.0 - 32.0 pcg LAB HEMETOLOGY METHOD 09/08/2024 10:40 AM [facility] MCHC 33.3 32.0 - 37.0 g/dL LAB HEMETOLOGY METHOD 09/08/2024 10:40 AM [facility] RDW 13.2 11.0 - 15.0 % LAB HEMETOLOGY METHOD 09/08/2024 10:40 AM [facility] Platelets 34(L) 130 - 400 K/mcL LAB HEMETOLOGY METHOD 09/08/2024 10:40 AM [facility] Comment:previously verified by slide MPV 9.7 7.0 - 11.0 FL LAB HEMETOLOGY METHOD 09/08/2024 10:40 AM [facility] NRBC 0.0 <1.0 % LAB HEMETOLOGY METHOD 09/08/2024 10:40 AM [facility] NRBC Absolute 0.00 <0.10 K/mcL LAB HEMETOLOGY METHOD 09/08/2024 10:40 AM [facility] Blood Venous blood specimen / Unknown Venipuncture / Unknown 09/08/2024 7:20 AM EST 09/08/2024 9:03 AM EST us Stephanie Celis MD LAB BLOOD ORDERABLES Fin al Result [facility] [address] [place] [address], documented in this encounter Visit Diagnoses Diagnosis Other care home (current) drug therapy documented in this encounter Care Teams Panelbeater Relationship Specialty Start Date End Date Nina Lindsay NP [address] [place] [phone] PCP - General 10/07/23 documented as of this encounter
--- OUTSIDE RECORDS SUMMARY | 2024-10-15 14:06 | XMS_ITS | Encounter Summary ---
Author Organization [facility] Address [address] [place] [address] Care Team Providers Care Claims Sorter Name Role Phone Neftali Nina Marsh NP Primary Care Provider [phone] Encounter Details Date Type Department Care Team (Late st Contact Info) Description 08/07/2024 Lab Requisition [facility] Lab [address] [facility] [place] [address] Stephanie Celis MD [address] [phone] Hyperlipidemia, unspecified; Hypothyroidism, unspecified Social History Tobacco [...] Associated Diagnosis Comments COMPLETE BLOOD COUNT Routine 08/10/2024 8:44 AM EST Hyperlipidemia, unspecified Hypothyroidism, unspecified BASIC METABOLIC PANEL Routine 08/10/2024 8:44 AM EST Hyperlipidemia, unspecified Hypothyroidism, unspecified documented in this encounter Results * (ABNORMAL) Basic metabolic panel (08/10/2024 8:44 AM EST) Sodium 139 133 - 145 mmol/L LAB CHEMISTRY METHOD 08/10/2024 1:16 PM EST [facility] Potassium 3.6 3.5 - 5.5 mmol/L LAB CHEMISTRY METHOD 08/10/2024 1:16 PM EST [facility] Chloride 103 96 - 110 mmol/L LAB CHEMISTRY METHOD 08/10/2024 1:16 PM EST [facility] CO2 29 21 - 32 mmol/L LAB CHEMISTRY METHOD 08/10/2024 1:16 PM [facility] Anion Gap 7 3 - 11 LAB CHEMISTRY METHOD 08/10/2024 1:16 PM [facility] Glucose 128(H) 70 - 100 mg/dL LAB CHEMISTRY METHOD 08/10/2024 1:16 PM [facility] BUN 22 5 - 25 mg/dL LAB CHEMISTRY METHOD 08/10/2024 1:16 PM [facility] Creatinine 1.37(H) 0.50 - 1.10 mg/dL LAB CHEMISTRY METHOD 08/10/2024 1:16 PM [facility] eGFR 44(L) >=60 mL/min/1. 73m2 LAB CHEMISTRY METHOD 08/10/2024 1:16 PM [facility] Comment:Calculation based on the??Chronic Kidney Disease Epidemiology Collaboration (CKD-EPI) equation refit??without adjustment for race. BUN/Creatinine Ratio 16.1 LAB CHEMISTRY METHOD 08/10/2024 1:16 PM [facility] Calcium 8.5 8.5 - 10.5 mg/dL LAB CHEMISTRY METHOD 08/10/2024 1:16 PM [facility] Blood Venous blood specimen / Unknown Venipuncture / Unknown 08/10/2024 8:44 AM EST 08/10/2024 11:11 AM EST us Stephanie Celis MD LAB BLOOD ORDERABLES Fin al Result [facility] LAB [address] [place] [address], * (ABNORMAL) Complete blood count (08/10/2024 8:44 AM EST) WBC 3.9(L) 4.8 - 10.8 K/mcL LAB HEMETOLOGY METHOD 08/10/2024 12:39 PM [facility] RBC 2.60(L) 3.80 - 4.80 M/mcL LAB HEMETOLOGY METHOD 08/10/2024 12:39 PM [facility] Hemoglobin 9.9(L) 11.5 - 16.0 g/dL LAB HEMETOLOGY METHOD 08/10/2024 12:39 PM [facility] Hematocrit 30.5(L) 35.0 - 47.0 % LAB HEMETOLOGY METHOD 08/10/2024 12:39 PM [facility] MCV 116.4(H) 79.0 - 98.0 FL LAB HEMETOLOGY METHOD 08/10/2024 12:39 PM [facility] MCH 37.8(H) 27.0 - 32.0 pcg LAB HEMETOLOGY METHOD 08/10/2024 12:39 PM [facility] MCHC 32.5 32.0 - 37.0 g/dL LAB HEMETOLOGY METHOD 08/10/2024 12:39 PM [facility] RDW 12.3 11.0 - 15.0 % LAB HEMETOLOGY METHOD 08/10/2024 12:39 PM [facility] Platelets 43(L) 130 - 400 K/mcL LAB HEMETOLOGY METHOD 08/10/2024 12:39 PM [facility] Comment:previously verified by slide MPV 9.8 7.0 - 11.0 FL LAB HEMETOLOGY METHOD 08/10/2024 12:39 PM [facility] NRBC 0.5 <1.0 % LAB HEMETOLOGY METHOD 08/10/2024 12:39 PM [facility] NRBC Absolute 0.02 <0.10 K/mcL LAB HEMETOLOGY METHOD 08/10/2024 12:39 PM EST [facility] Blood Venous blood specimen / Unknown Venipuncture / Unknown 08/10/2024 8:44 AM EST 08/10/2024 11:11 AM EST us Stephanie Celis MD LAB BLOOD ORDERABLES Fin al Result [facility] LAB [address] [place] [address], documented in this encounter Visit Diagnoses Diagnosis Hyperlipidemia, unspecified Hypothyroidism, unspecified documented in this encounter Care Teams Claims Sorter Relationship Specialty Start Date End Date Nina Lindsay NP [address] [place] [phone] PCP - General 10/07/23 documented as of this encounter
--- OUTSIDE RECORDS SUMMARY | 2024-10-15 14:06 | XMS_ITS | Encounter Summary ---
Author Organization [facility] Address [address] [place] [address] Care Team Providers Care Veterinary Inspector Name Role Phone Nina Lindsay NP Primary Care Provider [phone] Encounter Details Date Type Department Care Team (Late st Contact Info) Description 07/27/2024 Lab Requisition [facility] - Main Lab 299 [facility] [place] [address] Stephanie Celis MD [address] [address] Vitamin D deficiency, unspecified; Chronic kidney disease, stage 3 unspecified (CMS/HCC V24, CMS/HCC V28); Anxiety disorder, unspecified; Unspecified cirrhosis of liver (CMS/HCC V24, CMS/HCC V28); Syphilis, unspecified; Chronic viral hepatitis C ([facility]/HCC V24, CMS/HCC V28); Frequency of micturition; Hyperlipidemia, unspecified; Depression, unspecified; Noninfective gastroenteritis and colitis, unspecified; Unspecified psychosis not due to a substance or known physiological condition (CMS/HCC V24, CMS/HCC V28); Human immunodeficiency virus (HIV) disease (CMS/HCC V24, CMS/HCC V28); Hypothyroidism, unspecified; COVID-19 Social History Tobacco Use Types Packs/Day Years [...] Procedure Name Priority Date/Time Associated Diagnosis Comments VITAMIN D 25 HYDROXY Routine 07/27/2024 5:39 AM EST Vitamin D deficiency, unspecified Chronic kidney disease, stage 3 unspecified (CMS/HCC) Anxiety disorder, unspecified Unspecified cirrhosis of liver (CMS/HCC) Syphilis, unspecified Chronic viral hepatitis C (CMS/HCC) Frequency of micturition Hyperlipidemia, unspecified Depression, unspecified Noninfective gastroenteritis and colitis, unspecified Unspecified psychosis not due to a substance or known physiological condition (CMS/HCC) Human immunodeficiency virus (HIV) disease (CMS/HCC) Hypothyroidism, unspecified COVID-19 COMPLETE BLOOD COUNT Routine 07/27/2024 5:39 AM EST Vitamin D deficiency, unspecified Chronic kidney disease, stage 3 unspecified (CMS/HCC) Anxiety disorder, unspecified Unspecified cirrhosis of liver (CMS/HCC) Syphilis, unspecified Chronic viral hepatitis C (CMS/HCC) Frequency of micturition Hyperlipidemia, unspecified Depression, unspecified Noninfective gastroenteritis and colitis, unspecified Unspecified psychosis not due to a substance or known physiological condition (CMS/HCC) Human immunodeficiency virus (HIV) disease (CMS/HCC) Hypothyroidism, unspecified COVID-19 THYROID STIMULATING HORMONE Routine 07/27/2024 5:39 AM EST Vitamin D deficiency, unspecified Chronic kidney disease, stage 3 unspecified (CMS/HCC) Anxiety disorder, unspecified Unspecified cirrhosis of liver (CMS/HCC) Syphilis, unspecified Chronic viral hepatitis C (CMS/HCC) Frequency of micturition Hyperlipidemia, unspecified Depression, unspecified Noninfective gastroenteritis and colitis, unspecified Unspecified psychosis not due to a substance or known physiological condition (CMS/HCC) Human immunodeficiency virus (HIV) disease (CMS/HCC) Hypothyroidism, unspecified COVID-19 MAGNESIUM Routine 07/27/2024 5:39 AM EST Vitamin D deficiency, unspecified Chronic kidney disease, stage 3 unspecified (CMS/HCC) Anxiety disorder, unspecified Unspecified cirrhosis of liver (CMS/HCC) Syphilis, unspecified Chronic viral hepatitis C (CMS/HCC) Frequency of micturition Hyperlipidemia, unspecified Depression, unspecified Noninfective gastroenteritis and colitis, unspecified Unspecified psychosis not due to a substance or known physiological condition (CMS/HCC) Human immunodeficiency virus (HIV) disease (CMS/HCC) Hypothyroidism, unspecified COVID-19 FOLATE Routine 07/27/2024 5:39 AM EST Vitamin D deficiency, unspecified Chronic kidney disease, stage 3 unspecified (CMS/HCC) Anxiety disorder, unspecified Unspecified cirrhosis of liver (CMS/HCC) Syphilis, unspecified Chronic viral hepatitis C (CMS/HCC) Frequency of micturition Hyperlipidemia, unspecified Depression, unspecified Noninfective gastroenteritis and colitis, unspecified Unspecified psychosis not due to a substance or known physiological condition (CMS/HCC) Human immunodeficiency virus (HIV) disease (CMS/HCC) Hypothyroidism, unspecified COVID-19 VITAMIN B12 Routine 07/27/2024 5:39 AM EST Vitamin D deficiency, unspecified Chronic kidney disease, stage 3 unspecified (CMS/HCC) Anxiety disorder, unspecified Unspecified cirrhosis of liver (CMS/HCC) Syphilis, unspecified Chronic viral hepatitis C (CMS/HCC) Frequency of micturition Hyperlipidemia, unspecified Depression, unspecified Noninfective gastroenteritis and colitis, unspecified Unspecified psychosis not due to a substance or known physiological condition (CMS/HCC) Human immunodeficiency virus (HIV) disease (CMS/HCC) Hypothyroidism, unspecified COVID-19 COMPREHENSIVE METABOLIC PANEL Routine 07/27/2024 5:39 AM EST Vitamin D deficiency, unspecified Chronic kidney disease, stage 3 unspecified (CMS/HCC) Anxiety disorder, unspecified Unspecified cirrhosis of liver (CMS/HCC) Syphilis, unspecified Chronic viral hepatitis C (CMS/HCC) Frequency of micturition Hyperlipidemia, unspecified Depression, unspecified Noninfective gastroenteritis and colitis, unspecified Unspecified psychosis not due to a substance or known physiological condition (CMS/HCC) Human immunodeficiency virus (HIV) disease (CMS/HCC) Hypothyroidism, unspecified COVID-19 documented in this encounter Results * (ABNORMAL) Vitamin B12 (07/27/2024 5:39 AM EST) [facility] Vitamin B-12 >2,000(H) 250 - 900 pcg/mL LAB CHEMISTRY METHOD 07/27/2024 2:34 PM EST [facility] Blood Venous blood specimen / Unknown Venipuncture / Unknown 07/27/2024 5:39 AM EST 07/27/2024 12:17 PM EST Stephanie Celis MD LAB BLOOD ORDERABLES Fin al Result Performing Organization Address [facility] Co de Phone Number [facility] [address] [place] [address], [place] [phone] * Vitamin D 25 hydroxy (07/27/2024 5:39 AM EST) [facility] Vit D, 25-Hydroxy 55.9 30.0 - 80.0 ng/mL LAB CHEMISTRY METHOD 07/27/2024 2:19 PM EST [facility] Blood Venous blood specimen / Unknown Venipuncture / Unknown 07/27/2024 5:39 AM EST 07/27/2024 12:17 PM EST Stephanie Celis MD LAB BLOOD ORDERABLES Fin al Result Performing Organization Address [facility] de Phone Number [facility] [address] [place] [address], [place] [phone] * Magnesium (07/27/2024 5:39 AM EST) [facility] Magnesium 2.5 1.9 - 2.6 mg/dL LAB CHEMISTRY METHOD 07/27/2024 2:12 PM EST [facility] Blood Venous blood specimen / Unknown Venipuncture / Unknown 07/27/2024 5:39 AM EST 07/27/2024 12:17 PM EST Stephanie Celis MD LAB BLOOD ORDERABLES Fin al Result Performing Organization Address [facility] Co de Phone Number [facility] [address] [place] [address], [place] [phone] * (ABNORMAL) Folate (07/27/2024 5:39 AM EST) [facility] Folate >20.0(H) 2.8 - 17.0 ng/ml LAB CHEMISTRY METHOD 07/27/2024 2:34 PM EST [facility] Blood Venous blood specimen / Unknown Venipuncture / Unknown 07/27/2024 5:39 AM EST 07/27/2024 12:17 PM EST Stephanie Celis MD LAB BLOOD ORDERABLES Fin al Result Performing Organization Address [facility] Co de Phone Number [facility] [address] [place] [address], [place] [phone] * (ABNORMAL) Thyroid stimulating hormone (07/27/2024 5:39 AM EST) Pathologist [facility] TSH 5.52(H) 0.40 - 4.00 mcIU/mL LAB CHEMISTRY METHOD 07/27/2024 2:19 PM EST [facility] Blood Venous blood specimen / Unknown Venipuncture / Unknown 07/27/2024 5:39 AM EST 07/27/2024 12:17 PM EST Stephanie Celis MD LAB BLOOD ORDERABLES Fin al Result Performing Organization Address [facility] de Phone Number [facility] [address] [place] [address], [place] [phone] * (ABNORMAL) Comprehensive metabolic panel (07/27/2024 5:39 AM EST) Pathologist [facility] Sodium 138 133 - 145 mmol/L LAB CHEMISTRY METHOD 07/27/2024 2:12 PM EST [facility] Potassium 4.3 3.5 - 5.5 mmol/L LAB CHEMISTRY METHOD 07/27/2024 2:12 PM EST [facility] Chloride 102 96 - 110 mmol/L LAB CHEMISTRY METHOD 07/27/2024 2:12 PM EST [facility] CO2 30 21 - 32 mmol/L LAB CHEMISTRY METHOD 07/27/2024 2:12 PM [facility] Anion Gap 6 3 - 11 LAB CHEMISTRY METHOD 07/27/2024 2:12 PM [facility] Glucose 115(H) 70 - 100 mg/dL LAB CHEMISTRY METHOD 07/27/2024 2:12 PM [facility] BUN 14 5 - 25 mg/dL LAB CHEMISTRY METHOD 07/27/2024 2:12 PM [facility] Creatinine 1.09 0.50 - 1.10 mg/dL LAB CHEMISTRY METHOD 07/27/2024 2:12 PM [facility] eGFR 58(L) >=60 mL/min/1. 73m2 LAB CHEMISTRY METHOD 07/27/2024 2:12 PM [facility] Comment:Calculation based on the??Chronic Kidney Disease Epidemiology Collaboration (CKD-EPI) equation refit??without adjustment for race. BUN/Creatinine Ratio 12.8 LAB CHEMISTRY METHOD 07/27/2024 2:12 PM [facility] Calcium 8.3(L) 8.5 - 10.5 mg/dL LAB CHEMISTRY METHOD 07/27/2024 2:12 PM [facility] AST (SGOT) 28 10 - 42 unit/L LAB CHEMISTRY METHOD 07/27/2024 2:12 PM [facility] ALT (SGPT) 14 10 - 60 unit/L LAB CHEMISTRY METHOD 07/27/2024 2:12 PM [facility] Alkaline Phosphatase 49 42 - 121 unit/L LAB CHEMISTRY METHOD 07/27/2024 2:12 PM [facility] Total Protein 6.4 6.0 - 8.0 g/dL LAB CHEMISTRY METHOD 07/27/2024 2:12 PM [facility] Albumin 2.7(L) 3.2 - 5.0 g/dL LAB CHEMISTRY METHOD 07/27/2024 2:12 PM [facility] Total Bilirubin 0.6 0.0 - 1.4 mg/dL LAB CHEMISTRY METHOD 07/27/2024 2:12 PM [facility] Blood Venous blood specimen / Unknown Venipuncture / Unknown 07/27/2024 5:39 AM EST 07/27/2024 12:17 PM EST us Stephanie Celis MD LAB BLOOD ORDERABLES Fin al Result [facility] [address] [place] [address], * (ABNORMAL) Complete blood count (07/27/2024 5:39 AM EST) WBC 3.4(L) 4.8 - 10.8 K/mcL LAB HEMETOLOGY METHOD 07/27/2024 1:38 PM [facility] RBC 2.50(L) 3.80 - 4.80 M/mcL LAB HEMETOLOGY METHOD 07/27/2024 1:38 PM [facility] Hemoglobin 10.0(L) 11.5 - 16.0 g/dL LAB HEMETOLOGY METHOD 07/27/2024 1:38 PM [facility] Hematocrit 31.1(L) 35.0 - 47.0 % LAB HEMETOLOGY METHOD 07/27/2024 1:38 PM [facility] MCV 122.4(H) 79.0 - 98.0 FL LAB HEMETOLOGY METHOD 07/27/2024 1:38 PM [facility] MCH 39.4(H) 27.0 - 32.0 pcg LAB HEMETOLOGY METHOD 07/27/2024 1:38 PM [facility] MCHC 32.2 32.0 - 37.0 g/dL LAB HEMETOLOGY METHOD 07/27/2024 1:38 PM [facility] RDW 12.6 11.0 - 15.0 % LAB HEMETOLOGY METHOD 07/27/2024 1:38 PM EST [facility] Platelets 150 130 - 400 K/mcL LAB HEMETOLOGY METHOD 07/27/2024 1:38 PM EST [facility] MPV 9.4 7.0 - 11.0 FL LAB HEMETOLOGY METHOD 07/27/2024 1:38 PM EST [facility] NRBC 0.0 <1.0 % LAB HEMETOLOGY METHOD 07/27/2024 1:38 PM EST [facility] NRBC Absolute 0.00 <0.10 K/mcL LAB HEMETOLOGY METHOD 07/27/2024 1:38 PM EST [facility] Blood Venous blood specimen / Unknown Venipuncture / Unknown 07/27/2024 5:39 AM EST 07/27/2024 12:17 PM EST us Stephanie Celis MD LAB BLOOD ORDERABLES Fin al Result [facility] [address] [place] [address], documented in this encounter Visit Diagnoses Diagnosis Vitamin D deficiency, unspecified Chronic kidney disease, stage 3 unspecified ([facility] V24, [facility] V28) Anxiety disorder, unspecified Unspecified cirrhosis of liver ([facility] V24, [facility] V28) Syphilis, unspecified Chronic viral hepatitis C ([facility] V24, [facility] V28) Chronic hepatitis C without mention of hepatic coma Frequency of micturition Urinary frequency Hyperlipidemia, unspecified Depression, unspecified Noninfective gastroenteritis and colitis, unspecified Unspecified psychosis not due to a substance or known physiological condition ([facility] V24, [facility] V28[facility] Human immunodeficiency virus (HIV) disease ([facility] V24, [facility] V28) Human immunodeficiency virus [HIV] disease Hypothyroidism, unspecified COVID-19 documented in this encounter Care Teams Veterinary Inspector Relationship Specialty Start Date End Date Nina Lindsay NP [address] [place] [phone] PCP - General 10/07/23 documented as of this encounter
--- OUTSIDE RECORDS SUMMARY | 2024-10-15 14:06 | XMS_ITS | Encounter Summary ---
Author Organization [facility] Address [address] [place] [address] Care Team Providers Care Drums Teacher Name Role Phone Neftali Nina Marsh NP Primary Care Provider [phone] Encounter Details Date Type Department Care Team (Late st Contact Info) Description 09/22/2024 Lab Requisition [facility] - Main Lab [address] [facility] [employer] [place] [address] Stephanie Celis MD [address] [address] Other drug-induced pancytopenia (CMS/HCC V24); Chronic kidney disease, stage 3 [...] Associated Diagnosis Comments COMPLETE BLOOD COUNT Routine 09/22/2024 7:02 AM EDT Other drug-induced pancytopenia (CMS/HCC) Chronic kidney disease, stage 3 unspecified (CMS/HCC) BASIC METABOLIC PANEL Routine 09/22/2024 7:02 AM EDT Other drug-induced pancytopenia (CMS/HCC) Chronic kidney disease, stage 3 unspecified (CMS/HCC) documented in this encounter Results * (ABNORMAL) Basic metabolic panel (09/22/2024 7:02 AM EDT) [facility] Sodium 138 133 - 145 mmol/L LAB CHEMISTRY METHOD 09/22/2024 10:05 AM [facility] Potassium 4.0 3.5 - 5.5 mmol/L LAB CHEMISTRY METHOD 09/22/2024 10:05 AM [facility] Chloride 103 96 - 110 mmol/L LAB CHEMISTRY METHOD 09/22/2024 10:05 AM [facility] CO2 27 21 - 32 mmol/L LAB CHEMISTRY METHOD 09/22/2024 10:05 AM [facility] Anion Gap 8 3 - 11 LAB CHEMISTRY METHOD 09/22/2024 10:05 AM [facility] Glucose 105(H) 70 - 100 mg/dL LAB CHEMISTRY METHOD 09/22/2024 10:05 AM [facility] BUN 15 5 - 25 mg/dL LAB CHEMISTRY METHOD 09/22/2024 10:05 AM [facility] Creatinine 1.15(H) 0.50 - 1.10 mg/dL LAB CHEMISTRY METHOD 09/22/2024 10:05 AM [facility] eGFR 54(L) >=60 mL/min/1. 73m2 LAB CHEMISTRY METHOD 09/22/2024 10:05 AM [facility] Comment:Calculation based on the??Chronic Kidney Disease Epidemiology Collaboration (CKD-EPI) equation refit??without adjustment for race. BUN/Creatinine Ratio 13.0 LAB CHEMISTRY METHOD 09/22/2024 10:05 AM [facility] Calcium 8.9 8.5 - 10.5 mg/dL LAB CHEMISTRY METHOD 09/22/2024 10:05 AM [facility] Blood Venous blood specimen / Unknown Venipuncture / Unknown 09/22/2024 7:02 AM EDT 09/22/2024 8:33 AM EDT us Stephanie Celis MD LAB BLOOD ORDERABLES Fin al Result [facility] [address] [place] [address], * (ABNORMAL) Complete blood count (09/22/2024 7:02 AM EDT) [facility] Signature WBC 2.2(L) 4.8 - 10.8 K/mcL LAB HEMETOLOGY METHOD 09/22/2024 10:32 AM EDT [facility] RBC 2.80(L) 3.80 - 4.80 M/mcL LAB HEMETOLOGY METHOD 09/22/2024 10:32 AM EDT [facility] Hemoglobin 10.5(L) 11.5 - 16.0 g/dL LAB HEMETOLOGY METHOD 09/22/2024 10:32 AM EDT [facility] Hematocrit 30.9(L) 35.0 - 47.0 % LAB HEMETOLOGY METHOD 09/22/2024 10:32 AM EDT [facility] MCV 110.4(H) 79.0 - 98.0 FL LAB HEMETOLOGY METHOD 09/22/2024 10:32 AM EDT [facility] MCH 37.5(H) 27.0 - 32.0 pcg LAB HEMETOLOGY METHOD 09/22/2024 10:32 AM EDT [facility] MCHC 34.0 32.0 - 37.0 g/dL LAB HEMETOLOGY METHOD 09/22/2024 10:32 AM EDT [facility] RDW 13.2 11.0 - 15.0 % LAB HEMETOLOGY METHOD 09/22/2024 10:32 AM EDT [facility] Platelets 66(L) 130 - 400 K/mcL LAB HEMETOLOGY METHOD 09/22/2024 10:32 AM EDT [facility] Comment:previously verified by slide MPV 9.2 7.0 - 11.0 FL LAB HEMETOLOGY METHOD 09/22/2024 10:32 AM EDT [facility] NRBC 0.0 <1.0 % LAB HEMETOLOGY METHOD 09/22/2024 10:32 AM EDT [facility] NRBC Absolute 0.00 <0.10 K/mcL LAB HEMETOLOGY METHOD 09/22/2024 10:32 AM EDT [facility] Blood Venous blood specimen / Unknown Venipuncture / Unknown 09/22/2024 7:02 AM EDT 09/22/2024 8:33 AM EDT us Stephanie Celis MD LAB BLOOD ORDERABLES Fin al Result [facility] [address] [place] [address], documented in this encounter Visit Diagnoses Diagnosis Other drug-induced pancytopenia (CMS/HCC V24) Other drug-induced pancytopenia Chronic kidney disease, stage 3 unspecified (CMS/HCC V24, CMS/HCC V28) documented in this encounter Care Teams Drums Teacher Relationship Specialty Start Date End Date Nina Lindsay NP [address] [place] [id number] PCP - General 10/07/23 documented as of this encounter
--- OUTSIDE RECORDS SUMMARY | 2024-10-15 14:06 | XMS_ITS | Clinical Summary ---
Author Organization [facility] Address [address] [place] [address] Phone Care Team Providers Care Wharfmaster Name Role Phone Nina Lindsay NP Primary Care Provider [phone] Allergies Active Allergy Reactions Criticality Noted Date Comments Abacavir 12/17/2023 Hydrobenzthiazide 12/17/2023 Hydrochlorothiazide 12/17/2023 Ibuprofen 12/17/2023 Penicillin G 12/17/2023 Penicillins 12/17/2023 Tenofovir 12/17/2023 Tenofovir Disoproxil [tenofovir] Tomato 12/17/2023 Zidovudine 12/17/2023 Medications acetaminophen (TYLENOL) 500 mg tablet Take 1 Tablet by mouth every 6 hours as needed. Active albuterol sulfate (ProAir RespiClick) 90 mcg/actuation aerosol powdr breath activated Inhale into the lungs. Active alendronate (FOSAMAX) 70 mg tablet Take 1 Tablet by mouth every 7 days. Active atorvastatin (LIPITOR) 10 mg tablet Take 1 Tablet by mouth daily. Active bictegravir-emtr icitabine-tenofo vir alafenamide (Biktarvy) 50-200-25 mg per tablet Take by mouth. Activ e calcium carbonate-vit D3-min 600 mg-10 mcg (400 unit) tablet Take by mouth. Activ e cholecalciferol (VITAMIN D-3) 25 mcg (1,000 unit) capsule Take by mouth. Activ e cyanocobalamin (VITAMIN B-12) 500 mcg tablet Take 1 Tablet by mouth daily. Active divalproex (DEPAKOTE) [address] tablet Take 1 Tablet by mouth 3 times daily. Active folic acid (FOLVITE) 1 mg tablet Take 1 Tablet by mouth daily. Active hydrocortisone 1 % topical cream Apply topically 2 times daily. Active lactase (LACTAID) 9,000 unit chewable tablet Take by mouth. Activ e levothyroxine (SYNTHROID, LEVOTHROID) 75 mcg tablet Take 1 Tablet by mouth daily. Active loperamide (IMODIUM A-D) 2 mg tablet Take 1 Tablet by mouth 4 times daily as needed. Active multivitamin tablet Take by mouth. Activ e omeprazole OTC (PriLOSEC OTC) 20 mg EC tablet Take 1 Tablet by mouth daily. Active oxyBUTYnin (DITROPAN) 5 mg tablet Take 1 Tablet by mouth 3 times daily. Active polyvinyl alcohol (ARTIFICIAL TEARS) 1.4 % ophthalmic solution 1 Drop as needed. Active QUEtiapine (SEROquel) 200 mg tablet Take 1 Tablet by mouth 2 times daily. Active senna-docusate (PERICOLACE) 8.6-50 mg per tablet Take 1 Tablet by mouth daily. Active sertraline (ZOLOFT) 100 mg tablet Take 1 Tablet by mouth daily. Active simethicone (MYLICON) 80 mg chewable tablet Take 1 Tablet by mouth every 6 hours as needed. Active fluoride, sodium, (Clinpro 5000) 1.1 % paste Place onto teeth. Active traZODone (DESYREL) 100 mg tablet Take 1 Tablet by mouth at bedtime. Active valACYclovir (VALTREX) 500 mg tablet Take 1 Tablet by mouth 3 times daily. Active WHEAT DEXTRIN ORAL Take by mouth. Activ e Encounters Date Type Department Care Team Description 09/29/2024 Lab Requisition [facility] [address] [place] [address] Stephanie Celis MD Hyperlipidemia, unspecified; Unspecified cirrhosis of liver (CMS/HCC V24, CMS/HCC V28); Chronic kidney disease, stage 3 unspecified (CMS/HCC V24, CMS/HCC V28) 09/22/2024 Lab Requisition [facility] [address] [place] [address] Stephanie Celis MD Other drug-induced pancytopenia (CMS/HCC V24); Chronic kidney disease, stage 3 unspecified (CMS/HCC V24, CMS/HCC V28) 09/16/2024 Lab Requisition [facility] [address] [place] [phone] Stephanie Celis MD Hyperlipidemia, unspecified; Unspecified cirrhosis of liver ([facility] V24, [facility] V28); Chronic kidney disease, stage 3 unspecified ([facility] V24, [facility] V28) 09/08/2024 Lab Requisition [facility] [address] [place] [phone] Stephanie Celis MD Other senior care (current) drug therapy 08/26/2024 Lab Requisition [facility] [address] [place] [phone] Stephanie Celis MD Anemia, unspecified 08/25/2024 Lab Requisition [facility] [address] [place] [phone] Stephanie Celis MD Encounter for therapeutic drug level monitoring 08/23/2024 Lab Requisition [facility] [address] [place] [phone] Stephanie Celis MD Hypothyroidism, unspecified; Hyperlipidemia, unspecified 08/20/2024 Lab Requisition [facility] [address] [place] [phone] Stephanie Celis MD Acute kidney failure, unspecified ([facility] V24); Chronic kidney disease, stage 3 unspecified ([facility] V24, [facility] V28); Human immunodeficiency virus (HIV) disease ([facility] V24, [facility] V28) 08/15/2024 Lab Requisition [facility] [address] [place] [phone] Stephanie Celis MD Hyperlipidemia, unspecified; Hypothyroidism, unspecified 08/13/2024 Lab Requisition [facility] [address] [place] [phone] Stephanie Celis MD Human immunodeficiency virus (HIV) disease ([facility] [place], [facility] V28); Noninfective gastroenteritis and colitis, unspecified; Altered mental status, unspecified; Vitamin D deficiency, unspecified 08/11/2024 Lab Requisition [facility] [address] [place] [phone] Stephanie Celis MD Altered mental status, unspecified 08/07/2024 Lab Requisition [facility] [address] [place] [phone] Stephanie Celis MD Hyperlipidemia, unspecified; Hypothyroidism, unspecified 07/31/2024 Lab Requisition [facility] [address] [place] [phone] Stephanie Celis MD Hyperlipidemia, unspecified; Hypothyroidism, unspecified 07/27/2024 Lab Requisition [facility] [address] [place] [address] Stephanie Celis MD Vitamin D deficiency, unspecified; Chronic kidney disease, stage 3 unspecified ([facility] V24, [facility] V28); Anxiety disorder, unspecified; Unspecified cirrhosis of liver ([facility], [facility] V28); Syphilis, unspecified; Chronic viral hepatitis C ([facility] V24, [facility] V28); Frequency of micturition; Hyperlipidemia, unspecified; Depression, unspecified; Noninfective gastroenteritis and colitis, unspecified; Unspecified psychosis not due to a substance or known physiological condition ([facility] [place], [facility] V28); Human immunodeficiency virus (HIV) disease ([facility], [facility] V28); Hypothyroidism, unspecified; COVID-19 from Last 3 Months Social History Tobacco Use Types Packs/Day Years Used Date Smoking Tobacco: Never Assessed Comments Unknown Sex and Gender Information Value Date Recorded Sex Assigned at Not on file Legal Sex Female 11:02 AM EDT Gender Identity Not on file Sexual Orientation Not on file Last Filed Vital Signs Vital Sign Reading Time Taken Comments Blood Pressure - - Pulse - - Temperature - - Respiratory Rate - - Oxygen Saturation - - Inhaled Oxygen Concentration - - Weight 84.4 kg (186 lb) 04/21/2024 10:04 AM EDT Height 167.6 cm (5' 6 ) 04/21/2024 10:04 AM EDT Body Mass Index 30.02 04/21/2024 10:04 AM EDT Plan of Treatment Health Maintenance Due Date Last Done Comments Breast Cancer Screening 1961 MMR Vaccines (1 of 2 - Risk 2-dose series) 11/23/1979 Cervical Cancer Screening: Pap Smear 1982 Hepatitis B Vaccines (3 of 3 - Risk 3-dose series) 02/09/2011 12/15/2010, 11/06/2010, 12/19/2009 Pneumococcal Vaccine: 50+ Years (4 of 4 - PCV20 or PCV21) 07/19/2019 07/19/2014, 01/28/2012, 05/03/2005 Pneumococcal Vaccine: Pediatrics (0 to 5 Years) and At-Risk Patients (6 to 64 Years) (4 of 4 - PCV20 or PCV21) 07/19/2019 07/19/2014, 01/28/2012, 05/03/2005 RSV Immunization Adult Patients (1 - Risk 60-74 years 1-dose series) 2021 DTaP,Tdap,and Td Vaccines (3 - Td or Tdap) 06/23/2022 06/23/2012, 02/06/2010 Meningococcal ACWY Vaccine (3 - Risk 2-dose series) 10/28/2023 10/27/2018, 09/09/2017 Cholesterol Screening (Lipid Panel) 01/30/2024 Colorectal Cancer Screening: Colonoscopy 01/30/2024 Depression Screening 01/30/2024 Medicare Annual Wellness Visit 01/30/2024 Social Influencers of Health Screening 01/30/2024 COVID-19 Vaccine ( season) 2024 04/28/2021, 08/26/2020, 08/05/2020 Influenza Vaccine (Season Ended) 2025 04/04/2023, 03/30/2022, 05/04/2021, Additional history exists Hepatitis C Screening Completed 05/20/1998 Hepatitis A Vaccines Completed 12/06/2004, 06/08/20 04 Zoster Vaccines Completed 04/01/2020, 05/30/2019 HIB Vaccines Aged Out No longer eligi ble based on patient's age to complete this topic HPV Vaccines Aged Out No longer eligi ble based on patient's age to complete this topic IPV Vaccines Aged Out No longer eligi ble based on patient's age to complete this topic Meningococcal B Vaccine Aged Out No l onger eligible based on patient's age to complete this topic RSV Immunization Patients Under 20 months Aged Out No longer eligible based on patient's age to complete this topic Varicella Vaccines Aged Out No longer eligible based on patient's age to complete this topic Procedures Procedure Name Priority Date/Time Associated Diagnosis Comments COMPLETE BLOOD COUNT Routine 09/29/2024 8:28 AM EDT Hyperlipidemia, unspecified Unspecified cirrhosis of liver (CMS/HCC) Chronic kidney disease, stage 3 unspecified (CMS/HCC) BASIC METABOLIC PANEL Routine 09/22/2024 7:02 AM EDT Other drug-induced pancytopenia (CMS/HCC) Chronic kidney disease, stage 3 unspecified (CMS/HCC) COMPLETE BLOOD COUNT Routine 09/22/2024 7:02 AM EDT Other drug-induced pancytopenia (CMS/HCC) Chronic kidney disease, stage 3 unspecified (CMS/HCC) BASIC METABOLIC PANEL Routine 09/16/2024 6:47 AM EDT Hyperlipidemia, unspecified Unspecified cirrhosis of liver (CMS/HCC) Chronic kidney disease, stage 3 unspecified (CMS/HCC) COMPLETE BLOOD COUNT Routine 09/16/2024 6:47 AM EDT Hyperlipidemia, unspecified Unspecified cirrhosis of liver (CMS/HCC) Chronic kidney disease, stage 3 unspecified (CMS/HCC) BASIC METABOLIC PANEL Routine 09/08/2024 7:20 AM EST Other terminal gauger supervisor (current) drug therapy COMPLETE BLOOD COUNT Routine 09/08/2024 7:20 AM EST Other terminal gauger supervisor (current) drug therapy COMPLETE BLOOD COUNT Routine 08/27/2024 7:46 AM EST Anemia, unspecified VALPROIC ACID LEVEL, TOTAL Routine 08/25/2024 7:32 AM EST Encounter for therapeutic drug level monitoring BASIC METABOLIC PANEL Routine 08/24/2024 6:57 AM EST Hypothyroidism, unspecified Hyperlipidemia, unspecified COMPLETE BLOOD COUNT Routine 08/24/2024 6:57 AM EST Hypothyroidism, unspecified Hyperlipidemia, unspecified AMMONIA Routine 08/20/2024 7:52 AM EST Acute kidney failure, unspecified (CMS/HCC) Chronic kidney disease, stage 3 unspecified (CMS/HCC) Human immunodeficiency virus (HIV) disease (CMS/HCC) COMPREHENSIVE METABOLIC PANEL Routine 08/20/2024 7:52 AM EST Acute kidney failure, unspecified (CMS/HCC) Chronic kidney disease, stage 3 unspecified (CMS/HCC) Human immunodeficiency virus (HIV) disease (CMS/HCC) COMPLETE BLOOD COUNT Routine 08/20/2024 7:52 AM EST Acute kidney failure, unspecified (CMS/HCC) Chronic kidney disease, stage 3 unspecified (CMS/HCC) Human immunodeficiency virus (HIV) disease (CMS/HCC) BASIC METABOLIC PANEL Routine 08/17/2024 5:27 AM EST Hyperlipidemia, unspecified Hypothyroidism, unspecified COMPLETE BLOOD COUNT Routine 08/17/2024 5:27 AM EST Hyperlipidemia, unspecified Hypothyroidism, unspecified COMPLETE BLOOD COUNT Routine 08/13/2024 7:22 AM EST Human immunodeficiency virus (HIV) disease (CMS/HCC) Noninfective gastroenteritis and colitis, unspecified Altered mental status, unspecified Vitamin D deficiency, unspecified URINALYSIS WITH REFLEX MICROSCOPIC Routine 08/10/2024 2:00 PM EST Altered mental status, unspecified URINALYSIS WITH REFLEX MICROSCOPIC Routine 08/10/2024 2:00 PM EST Altered mental status, unspecified CULTURE URINE Routine 08/10/2024 2:00 PM EST Altered mental status, unspecified BASIC METABOLIC PANEL Routine 08/10/2024 8:44 AM EST Hyperlipidemia, unspecified Hypothyroidism, unspecified COMPLETE BLOOD COUNT Routine 08/10/2024 8:44 AM EST Hyperlipidemia, unspecified Hypothyroidism, unspecified BASIC METABOLIC PANEL Routine 08/03/2024 7:57 AM EST Hyperlipidemia, unspecified Hypothyroidism, unspecified COMPLETE BLOOD COUNT Routine 08/03/2024 7:57 AM EST Hyperlipidemia, unspecified Hypothyroidism, unspecified VITAMIN B12 Routine 07/27/2024 5:39 AM EST [...] (HIV) disease (CMS/HCC) Hypothyroidism, unspecified COVID-19 VITAMIN D 25 HYDROXY Routine 07/27/2024 5:39 [...] virus (HIV) disease (CMS/HCC) Hypothyroidism, unspecified COVID-19 HEPATITIS C SCREENING Routine 05/20/1998 from Last 3 Months or Most Recently Relevant to Health Maintenance Results * (ABNORMAL) Complete blood count (09/29/2024 8:28 AM EDT) Only the most recent of12 resultswithin the time period is included. WBC 4.0(L) 4.8 - 10.8 K/mcL LAB HEMETOLOGY METHOD 09/29/2024 10:51 AM [facility] RBC 3.50(L) 3.80 - 4.80 M/mcL LAB HEMETOLOGY METHOD 09/29/2024 10:51 AM [facility] Hemoglobin 12.9 11.5 - 16.0 g/dL LAB HEMETOLOGY METHOD 09/29/2024 10:51 AM [facility] Hematocrit 39.1 35.0 - 47.0 % LAB HEMETOLOGY METHOD 09/29/2024 10:51 AM [facility] MCV 111.1(H) 79.0 - 98.0 FL LAB HEMETOLOGY METHOD 09/29/2024 10:51 AM [facility] MCH 36.6(H) 27.0 - 32.0 pcg LAB HEMETOLOGY METHOD 09/29/2024 10:51 AM [facility] MCHC 33.0 32.0 - 37.0 g/dL LAB HEMETOLOGY METHOD 09/29/2024 10:51 AM [facility] RDW 13.1 11.0 - 15.0 % LAB HEMETOLOGY METHOD 09/29/2024 10:51 AM EDT [facility] Platelets 101(L) 130 - 400 K/mcL LAB HEMETOLOGY METHOD 09/29/2024 10:51 AM EDT [facility] MPV 9.5 7.0 - 11.0 FL LAB HEMETOLOGY METHOD 09/29/2024 10:51 AM EDT [facility] NRBC 0.0 <1.0 % LAB HEMETOLOGY METHOD 09/29/2024 10:51 AM EDT [facility] NRBC Absolute 0.00 <0.10 K/mcL [facility]/29/[facility]24 10:51 AM [facility] Blood Venous blood specimen / Unknown Venipuncture / Unknown 09/29/2024 8:28 AM EDT 09/29/2024 10:07 AM EDT us Stephanie Celis MD LAB BLOOD ORDERABLES Fin al Result [facility] [address] [place] [address], * (ABNORMAL) Basic metabolic panel (09/22/2024 7:02 AM EDT) Only the most recent of7 resultswithin the time period is included. Sodium 138 133 - 145 mmol/L LAB CHEMISTRY METHOD 09/22/2024 10:05 AM [facility] Potassium 4.0 3.5 - 5.5 mmol/L LAB CHEMISTRY METHOD 09/22/2024 10:05 AM [facility] Chloride 103 96 - 110 mmol/L LAB CHEMISTRY METHOD 09/22/2024 10:05 AM [facility] CO2 27 21 - 32 mmol/L LAB CHEMISTRY METHOD 09/22/2024 10:05 AM EDT [facility] Anion Gap 8 3 - 11 [...] 13.0 LAB [facility] Calcium 8.9 8.5 - 10.5 mg/dL LAB CHEMISTRY METHOD 09/22/2024 10:05 AM [facility] Blood Venous blood specimen / Unknown Venipuncture / Unknown 09/22/2024 7:02 AM EDT 09/22/2024 8:33 AM EDT Stephanie Celis MD LAB BLOOD ORDERABLES Fin al Result [facility] [address] [place] [address], * Valproic acid level, total (08/25/2024 7:32 AM EST) Valproic Acid, Total 99 50 - 100 mcg/mL LAB CHEMISTRY METHOD 08/25/2024 12:36 PM EST [facility] Blood Venous blood specimen / Unknown Venipuncture / Unknown 08/25/2024 7:32 AM EST 08/25/2024 9:16 AM EST Stephanie Celis MD LAB BLOOD ORDERABLES Fin al Result Performing Organization Address City/[facility]/ZIP Co de Phone Number [facility] [address] [place] [address], [place] [phone] * (ABNORMAL) Ammonia (08/20/2024 7:52 AM EST) Pathologist [facility] Ammonia 50(H) 11 - 35 mcmol/L LAB CHEMISTRY METHOD 08/20/2024 9:05 AM EST [facility] Blood Venous blood specimen / Unknown Venipuncture / Unknown 08/20/2024 7:52 AM EST 08/20/2024 8:36 AM EST Stephanie Celis MD LAB BLOOD ORDERABLES Fin al Result Performing Organization Address [facility]/ZIP Co de Phone Number [facility] [address] [place] [address], [place] [phone] * (ABNORMAL) Comprehensive metabolic panel (08/20/2024 7:52 AM EST) Only the most recent of2 resultswithin the time period is included. [facility] Sodium 139 133 - 145 mmol/L LAB CHEMISTRY METHOD 08/20/2024 9:44 AM [facility] Potassium 4.2 3.5 - 5.5 mmol/L LAB CHEMISTRY METHOD 08/20/2024 9:44 AM [facility] Chloride 104 96 - 110 mmol/L LAB CHEMISTRY METHOD 08/20/2024 9:44 AM [facility] CO2 31 21 - 32 mmol/L LAB CHEMISTRY METHOD 08/20/2024 9:44 AM [facility] Anion Gap 4 3 - 11 LAB CHEMISTRY METHOD 08/20/2024 9:44 AM [facility] Glucose 116(H) 70 - 100 mg/dL LAB CHEMISTRY METHOD 08/20/2024 9:44 AM [facility] BUN 14 5 - 25 mg/dL LAB CHEMISTRY METHOD 08/20/2024 9:44 AM [facility] Creatinine 1.54(H) 0.50 - 1.10 mg/dL LAB CHEMISTRY METHOD 08/20/2024 9:44 AM [facility] eGFR 38(L) >=60 mL/min/1. 73m2 LAB CHEMISTRY METHOD 08/20/2024 9:44 AM [facility] Comment:Calculation based on the??Chronic Kidney Disease Epidemiology Collaboration (CKD-EPI) equation refit??without adjustment for race. BUN/Creatinine Ratio 9.1 LAB CHEMISTRY METHOD 08/20/2024 9:44 AM [facility] Calcium 8.5 8.5 - 10.5 mg/dL LAB CHEMISTRY METHOD 08/20/2024 9:44 AM [facility] AST (SGOT) 22 10 - 42 unit/L LAB CHEMISTRY METHOD 08/20/2024 9:44 AM [facility] ALT (SGPT) 11 10 - 60 unit/L LAB CHEMISTRY METHOD 08/20/2024 9:44 AM [facility] Alkaline Phosphatase 38(L) 42 - 121 unit/L LAB CHEMISTRY METHOD 08/20/2024 9:44 AM [facility] Total Protein 5.9(L) 6.0 - 8.0 g/dL LAB CHEMISTRY METHOD 08/20/2024 9:44 AM [facility] Albumin 2.6(L) 3.2 - 5.0 g/dL LAB CHEMISTRY METHOD 08/20/2024 9:44 AM [facility] Total Bilirubin 0.6 0.0 - 1.4 mg/dL LAB CHEMISTRY METHOD 08/20/2024 9:44 AM [facility] Blood Venous blood specimen / Unknown Venipuncture / Unknown 08/20/2024 7:52 AM EST 08/20/2024 8:36 AM EST us Stephanie Celis MD LAB BLOOD ORDERABLES Fin al Result [facility] [address] [place] [address], [place] [phone] * (ABNORMAL) Urinalysis with reflex microscopic (08/10/2024 2:00 PM EST) Specific [place] Urine 1.019 1.003 - 1.030 LAB URINALYSIS - AUTOMATED METHOD 08/11/2024 11:48 AM [facility] pH, Urine 6.0 5.0 - 8.0 pH LAB URINALYSIS - AUTOMATED METHOD 08/11/2024 11:48 AM [facility] Leukocytes, Urine Large(A) Negative LAB URINALYSIS - AUTOMATED METHOD 08/11/2024 11:48 AM [facility] Nitrite, Urine Negative Negative LAB URINALYSIS - AUTOMATED METHOD 08/11/2024 11:48 AM [facility] Protein, Urine 100(A) <=Trace mg/dL LAB URINALYSIS - AUTOMATED METHOD 08/11/2024 11:48 AM [facility] Glucose, Urine Negative Negative mg/dL LAB URINALYSIS - AUTOMATED METHOD 08/11/2024 11:48 AM [facility] Ketones, Urine Trace(A) Negative mg/dL LAB URINALYSIS - AUTOMATED METHOD 08/11/2024 11:48 AM [facility] Urobilinogen , Urine 1.0 0.2 - 1.0 mg/dL LAB URINALYSIS - AUTOMATED METHOD 08/11/2024 11:48 AM [facility] Bilirubin, Urine Small(A) Negative LAB URINALYSIS - AUTOMATED METHOD 08/11/2024 11:48 AM [facility] Blood, Urine Moderate(A) Negative LAB URINALYSIS - AUTOMATED METHOD 08/11/2024 11:48 AM [facility] RBC, Urine 16.3(H) 0 - 4 /HPF LAB URINALYSIS - AUTOMATED METHOD 08/11/2024 11:48 AM [facility] WBC, Urine 1,391.8(H) 0 - 4 /HPF LAB URINALYSIS - AUTOMATED METHOD 08/11/2024 11:48 AM [facility] Squamous Epithelial, Urine 12 0 - 60 /LPF LAB URINALYSIS - AUTOMATED METHOD 08/11/2024 11:48 AM [facility] Bacteria, Urine Many(A) Negative /HPF LAB URINALYSIS - AUTOMATED METHOD 08/11/2024 11:48 AM [facility] Hyaline Casts, Urine 0.0 0 - 3 /LPF LAB URINALYSIS - AUTOMATED METHOD 08/11/2024 11:48 AM [facility] Urine Urine specimen obtained by clean catch procedure / Unknown Non-blood Collection / Unknown 08/10/2024 2:00 PM EST 08/11/2024 10:50 AM EST Stephanie Celis MD LAB URINE ORDERABLES Fin al Result [facility] [address] [place] [address], * (ABNORMAL) Culture urine (08/10/2024 2:00 PM EST) Culture, Urine >100,000 CFU/mL Klebsiella pneumoniae ssp pneumoniae(A) SAVANA 08/13/2024 10:17 AM EST [facility] Comment: This is an edited [...] MICROBIOLOGY - GENER AL ORDERABLES Final Result Performing Organization Address City/[facility]/ZIP Co de Phone Number [facility] [address] [place] [phone], * Vitamin D 25 hydroxy (07/27/2024 5:39 AM EST) Vit D, 25-Hydroxy 55.9 30.0 - 80.0 ng/mL LAB CHEMISTRY METHOD 07/27/2024 2:19 PM EST [facility] Blood Venous blood specimen / Unknown Venipuncture / Unknown 07/27/2024 5:39 AM EST 07/27/2024 12:17 PM EST Stephanie Celis MD LAB BLOOD ORDERABLES Fin al Result Performing Organization Address City/[facility]/ZIP Co de Phone Number [facility] [address] [place] [address], [place] [phone] * (ABNORMAL) Thyroid stimulating hormone (07/27/2024 5:39 AM EST) [facility] TSH 5.52(H) 0.40 - 4.00 mcIU/mL LAB CHEMISTRY METHOD 07/27/2024 2:19 PM EST [facility] Blood Venous blood specimen / Unknown Venipuncture / Unknown 07/27/2024 5:39 AM EST 07/27/2024 12:17 PM EST Stephanie Celis MD LAB BLOOD ORDERABLES Fin al Result Performing Organization Address [facility]/State/ZIP Co de Phone Number [facility] [address] [place] [address], * Magnesium (07/27/2024 5:39 AM EST) [facility] Magnesium 2.5 1.9 - 2.6 mg/dL LAB CHEMISTRY METHOD 07/27/2024 2:12 PM EST [facility] Blood Venous blood specimen / Unknown Venipuncture / Unknown 07/27/2024 5:39 AM EST 07/27/2024 12:17 PM EST Stephanie Celis MD LAB BLOOD ORDERABLES Fin al Result [facility] [facility] [address] [place] [address], [place] [phone] * (ABNORMAL) Folate (07/27/2024 5:39 AM EST) [facility] Folate >20.0(H) 2.8 - 17.0 ng/ml LAB CHEMISTRY METHOD 07/27/2024 2:34 PM EST [facility] Blood Venous blood specimen / Unknown Venipuncture / Unknown 07/27/2024 5:39 AM EST 07/27/2024 12:17 PM EST Stephanie Celis MD LAB BLOOD ORDERABLES Fin al Result Performing Organization Address City/[facility]/ZIP Co de Phone Number [facility] [address] [place] [address], [place] [phone] * (ABNORMAL) Vitamin B12 (07/27/2024 5:39 AM EST) [facility] Vitamin B-12 >2,000(H) 250 - 900 pcg/mL LAB CHEMISTRY METHOD 07/27/2024 2:34 PM EST [facility] Blood Venous blood specimen / Unknown Venipuncture / Unknown 07/27/2024 5:39 AM EST 07/27/2024 12:17 PM EST Stephanie Celis MD LAB BLOOD ORDERABLES Fin al Result Performing Organization Address [facility] Co de Phone Number [facility] [address] [place] [address], [place] [phone] * Hepatitis C Screening (05/20/1998) [facility] Hepatitis C Screening Abstracted Per Amado MD HEALTH MAINTENANCE Final Result from Last 3 Months or Most Recently Relevant to Health Maintenance Insurance MEDICARE MEDICAID - [place] Care Teams Wharfmaster Relationship Specialty Start Date End Date Nina Lindsay NP [address] [place] [phone] PCP - General 10/07/23
--- OUTSIDE RECORDS SUMMARY | 2024-10-15 14:06 | XMS_ITS | Encounter Summary ---
Author Organization [facility] Address [address] [place] [address] Care Team Providers Care Circular Clerk Name Role Phone Neftali Nina Marsh NP Primary Care Provider [phone] Encounter Details Date Type Department Care Team (Late st Contact Info) Description 08/25/2024 Lab Requisition [facility] Main Lab [address] [facility] [place] [address] Stephanie Celis MD [address] [phone] Encounter for therapeutic drug level monitoring Social History Tobacco Use Types Packs/Day Years [...] Procedure Name Priority Date/Time Associated Diagnosis Comments VALPROIC ACID LEVEL, TOTAL Routine 08/25/2024 7:32 AM EST Encounter for therapeutic drug level monitoring documented in this encounter Results * Valproic acid level, total (08/25/2024 7:32 AM EST) Valproic Acid, Total 99 50 - 100 mcg/mL LAB CHEMISTRY METHOD 08/25/2024 12:36 PM EST [facility] Blood Venous blood specimen / Unknown Venipuncture / Unknown 08/25/2024 7:32 AM EST 08/25/2024 9:16 AM EST Stephanie Celis MD LAB BLOOD ORDERABLES Fin al Result [facility] [address] [place] [address], documented in this encounter Visit Diagnoses Diagnosis Encounter for therapeutic drug level monitoring documented in this encounter Care Teams Circular Clerk Relationship Specialty Start Date End Date Nina Lindsay NP [address] [place] [phone] PCP - General 10/07/23 documented as of this encounter
--- OUTSIDE RECORDS SUMMARY | 2024-10-15 14:06 | XMS_ITS | Encounter Summary ---
Author Organization [facility] Address [address] [place] [address] Care Team Providers Care Drier Name Role Phone Neftali Nina Marsh NP Primary Care Provider [phone] Encounter Details Date Type Department Care Team (Late st Contact Info) Description 08/23/2024 Lab Requisition [facility] [address] [facility] [place] [address] Stephanie Celis MD [address] [phone] Hypothyroidism, unspecified; Hyperlipidemia, unspecified Social History Tobacco Use Types Packs/Day [...] Associated Diagnosis Comments COMPLETE BLOOD COUNT Routine 08/24/2024 6:57 AM EST Hypothyroidism, unspecified Hyperlipidemia, unspecified BASIC METABOLIC PANEL Routine 08/24/2024 6:57 AM EST Hypothyroidism, unspecified Hyperlipidemia, unspecified documented in this encounter Results * (ABNORMAL) Basic metabolic panel (08/24/2024 6:57 AM EST) Sodium 141 133 - 145 mmol/L LAB CHEMISTRY METHOD 08/24/2024 11:16 AM EST [facility] Potassium 3.2(L) 3.5 - 5.5 mmol/L LAB CHEMISTRY METHOD 08/24/2024 11:16 AM EST [facility] Chloride 105 96 - 110 mmol/L LAB CHEMISTRY METHOD 08/24/2024 11:16 AM [facility] CO2 26 21 - 32 mmol/L LAB CHEMISTRY METHOD 08/24/2024 11:16 AM [facility] Anion Gap 10 3 - 11 LAB CHEMISTRY METHOD 08/24/2024 11:16 AM [facility] Glucose 87 70 - 100 mg/dL LAB CHEMISTRY METHOD 08/24/2024 11:16 AM [facility] BUN 15 5 - 25 mg/dL LAB CHEMISTRY METHOD 08/24/2024 11:16 AM [facility] Creatinine 1.38(H) 0.50 - 1.10 mg/dL LAB CHEMISTRY METHOD 08/24/2024 11:16 AM [facility] eGFR 43(L) >=60 mL/min/1. 73m2 LAB CHEMISTRY METHOD 08/24/2024 11:16 AM [facility] Comment:Calculation based on the??Chronic Kidney Disease Epidemiology Collaboration (CKD-EPI) equation refit??without adjustment for race. BUN/Creatinine Ratio 10.9 LAB CHEMISTRY METHOD 08/24/2024 11:16 AM [facility] Calcium 8.5 8.5 - 10.5 mg/dL LAB CHEMISTRY METHOD 08/24/2024 11:16 AM [facility] Blood Venous blood specimen / Unknown Venipuncture / Unknown 08/24/2024 6:57 AM EST 08/24/2024 10:21 AM EST us Stephanie Celis MD LAB BLOOD ORDERABLES Fin al Result [facility] [address] [place] [address], * (ABNORMAL) Complete blood count (08/24/2024 6:57 AM EST) WBC 2.4(L) 4.8 - 10.8 K/mcL LAB HEMETOLOGY METHOD 08/24/2024 10:58 AM [facility] RBC 2.70(L) 3.80 - 4.80 M/mcL LAB HEMETOLOGY METHOD 08/24/2024 10:58 AM [facility] Hemoglobin 10.1(L) 11.5 - 16.0 g/dL LAB HEMETOLOGY METHOD 08/24/2024 10:58 AM [facility] Hematocrit 31.4(L) 35.0 - 47.0 % LAB HEMETOLOGY METHOD 08/24/2024 10:58 AM [facility] MCV 118.0(H) 79.0 - 98.0 FL LAB HEMETOLOGY METHOD 08/24/2024 10:58 AM [facility] MCH 38.0(H) 27.0 - 32.0 pcg LAB HEMETOLOGY METHOD 08/24/2024 10:58 AM [facility] MCHC 32.2 32.0 - 37.0 g/dL LAB HEMETOLOGY METHOD 08/24/2024 10:58 AM [facility] RDW 13.5 11.0 - 15.0 % LAB HEMETOLOGY METHOD 08/24/2024 10:58 AM [facility] Platelets 33(L) 130 - 400 K/mcL LAB HEMETOLOGY METHOD 08/24/2024 10:58 AM [facility] Comment:previously verified by slide MPV 9.3 7.0 - 11.0 FL LAB HEMETOLOGY METHOD 08/24/2024 10:58 AM [facility] NRBC 0.0 <1.0 % LAB HEMETOLOGY METHOD 08/24/2024 10:58 AM [facility] NRBC Absolute 0.00 <0.10 K/mcL LAB HEMETOLOGY METHOD 08/24/2024 10:58 AM EST [facility] Blood Venous blood specimen / Unknown Venipuncture / Unknown 08/24/2024 6:57 AM EST 08/24/2024 10:21 AM EST us Stephanie Celis MD LAB BLOOD ORDERABLES Fin al Result [facility] [address] [place] [address], documented in this encounter Visit Diagnoses Diagnosis Hypothyroidism, unspecified Hyperlipidemia, unspecified documented in this encounter Care Teams Drier Relationship Specialty Start Date End Date Nina Lindsay NP [address] [place] [phone] PCP - General 10/07/23 documented as of this encounter
--- OUTSIDE RECORDS SUMMARY | 2024-10-15 14:06 | XMS_ITS | Encounter Summary ---
Author Organization [facility] Address [address] [place] [address] Care Team Providers Care Professor Of French Name Role Phone Neftali Nina Marsh NP Primary Care Provider [phone] Encounter Details Date Type Department Care Team (Late st Contact Info) Description 07/31/2024 Lab Requisition [facility] Lab [address] [facility] [place] [address] Stephanie Celis MD [address] [phone] Hyperlipidemia, unspecified; Hypothyroidism, unspecified Social History Tobacco [...] Associated Diagnosis Comments COMPLETE BLOOD COUNT Routine 08/03/2024 7:57 AM EST Hyperlipidemia, unspecified Hypothyroidism, unspecified BASIC METABOLIC PANEL Routine 08/03/2024 7:57 AM EST Hyperlipidemia, unspecified Hypothyroidism, unspecified documented in this encounter Results * (ABNORMAL) Basic metabolic panel (08/03/2024 7:57 AM EST) Sodium 138 133 - 145 mmol/L LAB CHEMISTRY METHOD 08/03/2024 12:[address] [facility] Potassium 4.3 3.5 - 5.5 mmol/L LAB CHEMISTRY METHOD 08/03/2024 12:[address] [facility] Chloride 104 96 - 110 mmol/L LAB CHEMISTRY METHOD 08/03/2024 12:20 PM [facility] CO2 28 21 - 32 mmol/L LAB CHEMISTRY METHOD 08/03/2024 12:20 PM [facility] Anion Gap 6 3 - 11 LAB CHEMISTRY METHOD 08/03/2024 12:20 PM [facility] Glucose 107(H) 70 - 100 mg/dL LAB CHEMISTRY METHOD 08/03/2024 12:20 PM [facility] BUN 14 5 - 25 mg/dL LAB CHEMISTRY METHOD 08/03/2024 12:20 PM [facility] Creatinine 1.23(H) 0.50 - 1.10 mg/dL LAB CHEMISTRY METHOD 08/03/2024 12:20 PM [facility] eGFR 50(L) >=60 mL/min/1. 73m2 LAB CHEMISTRY METHOD 08/03/2024 12:20 PM [facility] Comment:Calculation based on the??Chronic Kidney Disease Epidemiology Collaboration (CKD-EPI) equation refit??without adjustment for race. BUN/Creatinine Ratio 11.4 LAB CHEMISTRY METHOD 08/03/2024 12:20 PM [facility] Calcium 8.9 8.5 - 10.5 mg/dL LAB CHEMISTRY METHOD 08/03/2024 12:20 PM [facility] Blood Venous blood specimen / Unknown Venipuncture / Unknown 08/03/2024 7:57 AM EST 08/03/2024 11:09 AM EST us Stephanie Celis MD LAB BLOOD ORDERABLES Fin al Result [facility] [address] [place] [address], * (ABNORMAL) Complete blood count (08/03/2024 7:57 AM EST) WBC 2.5(L) 4.8 - 10.8 K/mcL LAB HEMETOLOGY METHOD 08/03/2024 1:03 PM [facility] RBC 2.60(L) 3.80 - 4.80 M/mcL LAB HEMETOLOGY METHOD 08/03/2024 1:03 PM [facility] Hemoglobin 10.0(L) 11.5 - 16.0 g/dL LAB HEMETOLOGY METHOD 08/03/2024 1:03 PM [facility] Hematocrit 30.5(L) 35.0 - 47.0 % LAB HEMETOLOGY METHOD 08/03/2024 1:03 PM [facility] MCV 117.8(H) 79.0 - 98.0 FL LAB HEMETOLOGY METHOD 08/03/2024 1:03 PM [facility] MCH 38.6(H) 27.0 - 32.0 pcg LAB HEMETOLOGY METHOD 08/03/2024 1:03 PM [facility] MCHC 32.8 32.0 - 37.0 g/dL LAB HEMETOLOGY METHOD 08/03/2024 1:03 PM [facility] RDW 12.2 11.0 - 15.0 % LAB HEMETOLOGY METHOD 08/03/2024 1:03 PM [facility] Platelets 78(L) 130 - 400 K/mcL LAB HEMETOLOGY METHOD 08/03/2024 1:03 PM [facility] Comment:reviewed by slide MPV 9.6 7.0 - 11.0 FL LAB HEMETOLOGY METHOD 08/03/2024 1:03 PM [facility] NRBC 0.0 <1.0 % LAB HEMETOLOGY METHOD 08/03/2024 1:03 PM [facility] NRBC Absolute 0.00 <0.10 K/mcL LAB HEMETOLOGY METHOD 08/03/2024 1:[address] [facility] Blood Venous blood specimen / Unknown Venipuncture / Unknown 08/03/2024 7:57 AM EST 08/03/2024 11:09 AM EST us Stephanie Celis MD LAB BLOOD ORDERABLES Fin al Result [facility] [address] [place] [address], documented in this encounter Visit Diagnoses Diagnosis Hyperlipidemia, unspecified Hypothyroidism, unspecified documented in this encounter Care Teams Professor Of French Relationship Specialty Start Date End Date Nina Lindsay NP [address] [place] [phone] PCP - General 10/07/23 documented as of this encounter
== END 2024-10-15 12:24 | disposition home or self-care (01) ==
LOC: HO.HUSH 11:34
PROVIDERS: PCP Nurse Practitioner Primary Care; Visit Provider Nurse Practitioner Family
DX: Z13.9 Encounter for screening, unspecified (principal)

== ENCOUNTER 2024-12-17 11:37 | Outpatient (REF) | payer MEDICARE, MEDICAID, SELFPAY ==
[2024-12-17 13:33] LABS: MANUAL DIFF FLAG NO
[2024-12-17 13:36] LABS: Basophils Percent Auto 0.2 % (0-2); Eosinophils Percent Auto 0.5 % (0-4); Hematocrit 38.2 % (37.0-47.0); Hemoglobin 13.4 g/dl (12.0-16.0); Imm Gran Abs Auto 0.02 X10*3/uL (0.00-0.03); Imm Gran Pct Auto 0.5 % (0.0-0.4); Lymphocytes Absolute Auto 1.6 X10*3/uL (1.2-4.9); Mean Corpuscular HGB Conc 35.1 g/dl (31.0-35.0); Mean Corpuscular Volume 108.2 fL (80.0-98.0); Mean Platelet Volume 9.4 fL (9.4-12.3); Monocytes Absolute Auto 0.3 X10*3/uL (0.1-1.2); Monocytes Percent Auto 6.4 % (2-11); Neutrophils Absolute Auto 2.5 x10*3/uL (2.0-8.3); Neutrophils Percent Auto 56.4 % (45-73); Red Blood Count 3.53 X10*6/uL (4.20-5.50); Red Cell Distribution Width 13.5 % (11.0-16.0); White Blood Count 4.4 X10*3/uL (4.8-10.8)
[2024-12-17 13:42] LABS: Platelet Count 92 X10*3/uL (160-400)
--- OUTSIDE RECORDS SUMMARY | 2024-12-17 13:47 | XMS_ITS | Encounter Summary ---
Author Organization [facility] Address [address] [place] [address] Care Team Providers Care Inside Sales Advertising Executive Name Role Phone Neftali Nina Marsh NP Primary Care Provider [phone] Encounter Details Date Type Department Care Team (Late st Contact Info) Description 09/29/2024 Lab Requisition [facility] - Main Lab 299 [facility] [place] [address] Stephanie Celis MD [address] [phone] Hyperlipidemia, unspecified; Unspecified cirrhosis of liver (CMS/HCC [...] AM EDT) WBC 4.0(L) 4.8 - 10.8 K/[facility] LAB HEMETOLOGY METHOD 09/29/2024 10:51 AM EDT [facility] RBC 3.50(L) 3.80 - 4.80 M/mcL LAB HEMETOLOGY METHOD 09/29/2024 10:51 AM [facility] Hemoglobin 12.9 11.5 - 16.0 g/dL LAB HEMETOLOGY METHOD 09/29/2024 10:51 AM [facility] Hematocrit 39.1 35.0 - 47.0 % LAB HEMETOLOGY METHOD 09/29/2024 10:51 AM [facility] MCV 111.1(H) 79.0 - 98.0 FL LAB HEMETOLOGY METHOD 09/29/2024 10:51 AM [facility] MCH 36.6(H) 27.0 - 32.0 pcg LAB HEMETOLOGY METHOD 09/29/2024 10:51 AM [facility] MCHC 33.0 32.0 - 37.0 g/dL LAB HEMETOLOGY METHOD 09/29/2024 10:51 AM [facility] RDW 13.1 11.0 - 15.0 % LAB HEMETOLOGY METHOD 09/29/2024 10:51 AM [facility] Platelets 101(L) 130 - 400 K/mcL LAB HEMETOLOGY METHOD 09/29/2024 10:51 AM [facility] MPV 9.5 7.0 - 11.0 FL LAB HEMETOLOGY METHOD 09/29/2024 10:51 AM [facility] NRBC 0.0 <1.0 % LAB HEMETOLOGY METHOD 09/29/2024 10:51 AM [facility] NRBC Absolute 0.00 <0.10 K/mcL LAB HEMETOLOGY METHOD 09/29/2024 10:51 AM [facility] Blood Venous blood specimen / Unknown Venipuncture / Unknown 09/29/2024 8:28 AM EDT 09/29/2024 10:07 AM EDT us Stephanie Celis MD LAB BLOOD ORDERABLES Fin al Result [facility] ([facility]) [facility] [address] [place] [address], documented in this encounter Visit Diagnoses Diagnosis Hyperlipidemia, unspecified Unspecified cirrhosis of liver (CMS/HCC V24, CMS/HCC V28) Chronic kidney disease, stage 3 unspecified (CMS/HCC V24, CMS/HCC V28) documented in this encounter Care Teams Inside Sales Advertising Executive Relationship Specialty Start Date End Date Nina Lindsay NP [address] [place] [phone] PCP - General 10/07/23 documented as of this encounter
[2024-12-17 13:55] LABS: Estimated Average Glucose 117 mg/dL; Hemoglobin A1c % 5.7 % (<6.0); Total Hemoglobin (HGBA1C) 3506.5094 umol/L
[2024-12-17 14:01] LABS: Alanine Aminotransferase 16 U/L (0-31); Albumin Level 4.7 g/dL (3.5-5.0); Alkaline Phosphatase 47 U/L (39-117); Anion Gap 12 (12-20); Aspartate Amino Transferase 28 U/L (5-31); Bilirubin Total 0.5 mg/dL (0.0-1.0); Blood Urea Nitrogen 23 mg/dL (9-16); Calcium 9.5 mg/dL (8.4-10.2); Carbon Dioxide 27 mmol/L (22-29); Chloride 107 mmol/L (96-108); Estimated Glomerular Filt Rate 42; Glucose Random 86 mg/dL (60-115); Potassium 4.2 mmol/L (3.3-5.1); Sodium 142 mmol/L (135-145); Total Protein 7.6 g/dL (6.5-8.0)
[2024-12-17 14:06] LABS: Alanine Aminotransferase 13 U/L (0-31); Albumin Level 4.8 g/dL (3.5-5.0); Alkaline Phosphatase 47 U/L (39-117); Anion Gap 14 (12-20); Aspartate Amino Transferase 37 U/L (5-31); Bilirubin Direct 0.2 mg/dL (0.0-0.5); Bilirubin Total 0.5 mg/dL (0.0-1.0); Blood Urea Nitrogen 23 mg/dL (9-16); Calcium 9.6 mg/dL (8.4-10.2); Carbon Dioxide 26 mmol/L (22-29); Chloride 106 mmol/L (96-108); Cholesterol 142 mg/dL (<200); Estimated Glomerular Filt Rate 44; Glucose Random 86 mg/dL (60-115); HDL Cholesterol 31 mg/dL (>40); LDL Cholesterol Calculated 63 mg/dL (<100); Potassium 4.2 mmol/L (3.3-5.1); Sodium 142 mmol/L (135-145); Total Protein 7.7 g/dL (6.5-8.0); Triglycerides 240 mg/dL (<150)
[2024-12-17 14:13] LABS: Ferritin 191 ng/mL (10-250)
[2024-12-18 15:18] LABS: HIV RNA PCR Qn Copies NOT DETECTED copies/mL (NOT DETECTED); HIV RNA PCR Qn Log Copies NOT DETECTED (NOT DETECTED)
[2024-12-20 08:33] LABS: TS Negative Control Passed; TS Panel A 1; TS Panel B 1; TS Positive Control Passed; TSpotTB Negative (Negative)
[2024-12-21 15:04] LABS: RPR Rapid Plasma Reagin NON-REACTIVE (NON-REACTIVE)
[2024-12-22 14:54] LABS: Absolute CD3 Count 1492 cells/uL (840-3060); Absolute CD4 Count 749 cells/uL (490-1740); Absolute CD8 Count 764 cells/uL (180-1170); Absolute Lymphocytes 1709 cells/uL (850-3900); CD4 CD8 Ratio 0.98 (0.86-5.00); Percent CD3 Cells 87 % (57-85); Percent CD4 Cells 44 % (30-61); Percent CD8 Cells 45 % (12-42)
== END 2024-12-17 11:38 | disposition home or self-care (01) ==
LOC: HO.HHCL 11:37
PROVIDERS: Internal Medicine Medical Oncology; Internal Medicine Nephrology; Student in an Organized Health Care Education/Training Program; Visit Provider Nurse Practitioner Primary Care
DX: N17.9 Acute kidney failure, unspecified (principal); D75.89 Other specified diseases of blood and blood-forming organs; Z11.3 Encounter for screening for infections with a predominantly sexual mode of transmission; E78.1 Pure hyperglyceridemia; Z13.1 Encounter for screening for diabetes mellitus; Z21 Asymptomatic human immunodeficiency virus [HIV] infection status
CPT/HCPCS: 36415; 80053; 80061; 82248; 82550; 82728; 83036; 85025; 86359; 86360; 86481; 86592; 87536; 87902

== ENCOUNTER 2024-12-29 10:49 | Outpatient (REF) | payer MEDICARE, MEDICAID, SELFPAY ==
[2024-12-29 11:31] LABS: Basophils Percent Auto 0.2 % (0-2); Eosinophils Percent Auto 0.4 % (0-4); Hematocrit 37.2 % (37.0-47.0); Imm Gran Abs Auto 0.01 X10*3/uL (0.00-0.03); Imm Gran Pct Auto 0.2 % (0.0-0.4); Lymphocytes Absolute Auto 1.9 X10*3/uL (1.2-4.9); Lymphocytes Percent Auto 39.5 % (20-40); MANUAL DIFF FLAG NO; Mean Corpuscular HGB Conc 34.9 g/dl (31.0-35.0); Mean Corpuscular Hemoglobin 37.9 pg (27.0-33.0); Mean Corpuscular Volume 108.5 fL (80.0-98.0); Mean Platelet Volume 9.4 fL (9.4-12.3); Monocytes Absolute Auto 0.2 X10*3/uL (0.1-1.2); Monocytes Percent Auto 4.8 % (2-11); Neutrophils Absolute Auto 2.6 x10*3/uL (2.0-8.3); Neutrophils Percent Auto 54.9 % (45-73); Red Blood Count 3.43 X10*6/uL (4.20-5.50); Red Cell Distribution Width 13.3 % (11.0-16.0); White Blood Count 4.8 X10*3/uL (4.8-10.8)
[2024-12-29 11:33] LABS: Platelet Count 86 X10*3/uL (160-400)
[2024-12-29 12:07] LABS: Anion Gap 14 (12-20); Blood Urea Nitrogen 20 mg/dL (9-16); Calcium 9.9 mg/dL (8.4-10.2); Carbon Dioxide 26 mmol/L (22-29); Chloride 105 mmol/L (96-108); Estimated Glomerular Filt Rate 46; Glucose Random 93 mg/dL (60-115); Potassium 4.9 mmol/L (3.3-5.1); Sodium 140 mmol/L (135-145)
--- OUTSIDE RECORDS SUMMARY | 2024-12-29 12:15 | XMS_ITS | Encounter Summary ---
Author Organization [facility] Address [address] [place] [address] Care Team Providers Care Continuous Mining Operator Name Role Phone Neftali Nina Marsh NP Primary Care Provider [phone] Encounter Details Date Type Department Care Team (Late st Contact Info) Description 09/29/2024 Lab Requisition [facility] - Main Lab 299 [facility] [place] [address] Stephanie Celis MD [address] [phone] Hyperlipidemia, unspecified; Unspecified cirrhosis of liver (CMS/HCC [...] AM EDT) WBC 4.0(L) 4.8 - 10.8 K/[facility] LAB HEMETOLOGY METHOD 09/29/2024 10:51 AM EDT [facility] RBC 3.50(L) 3.80 - 4.80 M/mcL LAB HEMETOLOGY METHOD 09/29/2024 10:[address] [facility] Hemoglobin 12.9 11.5 - 16.0 g/dL LAB HEMETOLOGY METHOD 09/29/2024 10:[address] [facility] Hematocrit 39.1 35.0 - 47.0 % LAB HEMETOLOGY METHOD 09/29/2024 10:[address] [facility] MCV 111.1(H) 79.0 - 98.0 FL LAB HEMETOLOGY METHOD 09/29/2024 10:[address] [facility] MCH 36.6(H) 27.0 - 32.0 pcg LAB HEMETOLOGY METHOD 09/29/2024 10:[address] [facility] MCHC 33.0 32.0 - 37.0 g/dL LAB HEMETOLOGY METHOD 09/29/2024 10:[address] [facility] RDW 13.1 11.0 - 15.0 % LAB HEMETOLOGY METHOD 09/29/2024 10:[address] [facility] Platelets 101(L) 130 - 400 K/mcL LAB HEMETOLOGY METHOD 09/29/2024 10:[address] [facility] MPV 9.5 7.0 - 11.0 FL LAB HEMETOLOGY METHOD 09/29/2024 10:[address] [facility] NRBC 0.0 <1.0 % LAB HEMETOLOGY METHOD 09/29/2024 10:[address] [facility] NRBC Absolute 0.00 <0.10 K/mcL LAB HEMETOLOGY METHOD 09/29/2024 10:[address] [facility] Blood Venous blood specimen / Unknown Venipuncture / Unknown 09/29/2024 8:28 AM EDT 09/29/2024 10:07 AM EDT us Stephanie Celis MD LAB BLOOD ORDERABLES Fin al Result [facility]) [facility] [address] [place] [address], documented in this encounter Visit Diagnoses Diagnosis Hyperlipidemia, unspecified Unspecified cirrhosis of liver (CMS/HCC V24, CMS/HCC V28) Chronic kidney disease, stage 3 unspecified (CMS/HCC V24, CMS/HCC V28) documented in this encounter Care Teams Continuous Mining Operator Relationship Specialty Start Date End Date Nina Lindsay NP [address] [place] [phone] PCP - General 10/07/23 documented as of this encounter
[2024-12-29 12:33] LABS: Vitamin D 25-OH Total 42.2 ng/mL (>30)
[2024-12-29 14:10] LABS: Creatinine Urine 109.27 mg/dL; Microalbum/Creatinine Ratio Ur 129.9 ug/mg cr (<30)
== END 2024-12-29 10:50 | disposition home or self-care (01) ==
LOC: HO.LAB 10:49
PROVIDERS: PCP Nurse Practitioner Primary Care; Visit Provider Nurse Practitioner Primary Care
DX: R25.1 Tremor, unspecified (principal); D64.9 Anemia, unspecified; Z91.81 History of falling; A18.17 Tuberculous female pelvic inflammatory disease; N18.32 Chronic kidney disease, stage 3b; I95.9 Hypotension, unspecified
CPT/HCPCS: 36415; 80048; 82043; 82306; 82570; 85025; 99212

== ENCOUNTER 2024-12-29 12:55 | Outpatient (AMB) | payer MEDICARE, MEDICAID, SELFPAY ==
--- NOTE | 2024-12-29 13:02 | A.OFFVIS_ITS ---
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 Allergies abacavir (ABACAVIR) Allergy (Severe, Verified 12/29/24 10:18) HIVES hydrochlorothiazide (HYDROCHLOROTHIAZIDE) Allergy (Severe, Verified 12/29/24 10:18) HIVES ibuprofen (From MOTRIN) Allergy (Severe, Verified 12/29/24 10:18) HIVES Penicillins (PENICILLINS) Allergy (Severe, Verified 12/29/24 10:18) HIVES tenofovir (From VIREAD) Allergy (Severe, Verified 12/29/24 10:18) HIVES tomato (TOMATO) Allergy (Severe, Verified 12/29/24 10:18) HIVES zidovudine (From RETROVIR) Allergy (Severe, Verified 12/29/24 10:18) HIVES lactose (Lactose) Adverse Reaction (Mild, Verified 12/29/24 10:18) DIARRHEA disoproxail Allergy (Mild, Uncoded 12/29/24 10:18) Unknown Medication List - Last Reviewed 12/29/24 by Charlotte Ron acetaminophen 500 mg PO Q6H PRN albuterol sulfate 90 mcg/actuation 2 puffs inhalation Q4H PRN atorvastatin 10 mg PO DAILY bzuguttvx-nsbtjrmc-yvzrnbl ala 50-200-25 mg (Biktarvy) 1 tab PO DAILY calcium carbonate-vitamin D3 600 mg-10 mcg (400 unit) (Calcium 600 + D(3)) 1 tab PO BID chlorhexidine gluconate 0.12% 15 mL PO BID cyanocobalamin (vitamin B-12) (Vitamin B-12) 50 mcg PO DAILY dextran 70-hypromellose (Artificial Tears (PF) drops in a dropperette) 1 drp ophthalmic (eye) QID diazepam (Valium) 5 mg PO Q8H PRN divalproex ER 1,000 mg PO BEDTIME divalproex ER 250 mg PO DAILY docusate sodium 100 mg PO BID PRN fluoride (sodium) 1.1% (Denta 5000 Plus) 1 appl PO DAILY folic acid 1 mg PO DAILY lactase (Lactaid Fast Act) 18,000 units PO QIDWMHS PRN levothyroxine 75 mcg PO DAILY@0600 loperamide 4 mg PO Q4H PRN midodrine 5 mg PO TID multivitamin with folic acid 400 mcg (High Potency Multivitamin) 1 tab PO DAILY omeprazole 20 mg PO QAM 30 days oxycodone 5 mg PO Q6H PRN quetiapine 200 mg PO TID 30 days sennosides-docusate sodium 8.6-50 mg (Stimulant Laxative Plus) 1 tab PO BID sertraline 100 mg PO DAILY simethicone 80 mg PO TID sodium chloride 0.65% (Saline Nasal) 1 spray intranasal BID sodium chloride 0.65% (Saline Nasal) 1 spray intranasal BID trazodone 100 mg PO BEDTIME wheat dextrin (Benefiber Sugar Free (dextrin)) 1 packet PO BID HPI Comments Details: Adrianne is here for consultation regarding low blood pressure. It seems that in July of this year, she presented after a fall and found to have COVID infection, acute kidney injury and colitis. She spent several days in the hospital and then eventually discharged home. At the time of discharge, she was apparently put on midodrine and she is still taking that. The specific concern is if she can stay on midodrine or discontinued. Patient herself has no previous cardiac history. No known coronary disease or myocardial infarction or cardiomyopathy or in fact anything else known. However, she has got numerous medical issues as listed. There is also mention of developmental delay. She is on polypharmacy. According to the superficial from the long-term, she has not had any clear-cut complaints like angina or shortness of breath. Nonspecific dizziness which is longstanding. Again no specific patterns and can be for any reason and also could be related to lot of medications she is taking. No clear syncopal episodes. [facility] Medical History Positive serological reaction for syphilis Hypothyroidism Hx of acute pancreatitis Hx of acute renal failure History of ETOH abuse Hx of herpes genitalis History of diverticulosis Constipation History of intravenous drug abuse Developmental delay, mild COVID-19 vaccine series completed Depression PTSD (post-traumatic stress disorder) Hyperlipidemia Seasonal allergies Hx of hepatitis C HIV (human immunodeficiency virus infection) Nocturia Frequency of micturition Surgical History History of colonoscopy Family History Mother Alzheimer disease Breast cancer HTN (hypertension) Paternal Aunt Breast cancer Social History Household Members: None Household Members Other:: [employer] Housing: Apartment Housing Other:: Shelter Are you a primary career counselor to a significant other at home: No Do you presently have visiting nurse or other home services: Yes Unable to assess alcohol history related to: Unknown Alcohol intake: never Patient Tobacco Use Status: Never used Tobacco e-Cigarette/Vaping Use: Never Used Second Hand Smoke Exposure: No service: No Sexual orientation: Decline to Answer Female Reproductive History Menstrual Age of Menarche: 11 Review of Systems Const Denies weakness ENT Reports dizziness Card Denies chest pain, Denies chest pain with activity, Denies syncope, Denies rapid heart rate, Denies pedal edema, Denies edema, Denies leg edema, Denies lightheadedness, Denies palpitations, Denies dyspnea, Denies dyspnea on exertion and Denies orthopnea Resp Denies cough, Denies dyspnea and Denies dyspnea on exertion GI Denies hematochezia and Denies change in stool character Musc Denies abnormal gait, Denies muscle cramps, Denies muscle weakness, Denies numbness, Denies radiating pain into limb and Denies tingling Neuro Denies abnormal gait, Reports dizziness, Denies syncope, Denies numbness, Denies tingling and Denies weakness Endo Denies palpitations Physical Exam Vital Signs: Last Vital Signs Pulse 78 12/29/24 13:03 BP 124/68 12/29/24 13:03 BMI result Body Mass Index 28.5 Const General: comfortable and no acute distress Orientation/consciousness: patient oriented x3 HEENT Other: Unremarkable Head: Yes normal to inspection Neck Neck: Yes normal visual inspection Chest Chest palpation & inspection: normal inspection of the chest Resp Auscultation: clear to auscultation bilaterally Cardio Palpation: normal PMI Heart sounds: S1 normal heart sound present, S2 normal heart sound present, no gallops, no murmurs and no rubs GI Palpation (GI): Soft to palpation Back/Spine/Pelvis Other: unremarkable Skin General skin exam: no rashes or lesions noted Neuro General: patient oriented x3 Extrem General: Yes normal to inspection Psych Mental Status: mental status grossly normal Assessment & Plan Assessment & Plan (1) Arterial hypotension: Code(s): I95.9 - Hypotension, unspecified Category: Medical Plan Today's blood pressure is 124/68 mm Hg. During the time of hospitalization, she has had hypotension, but she was also acutely ill at that time. For the last few months, she has been on Midodrine. Blood pressure has been reasonably stable. As she is not having other ill effects from midodrine like hypertension, it may be reasonable to just continue this. With regard to her random complaints of dizziness, seems nonspecific and not necessarily related to low blood pressure. We will also get an echocardiogram for cardiac function assessment. Discussed with the electronic assembler group leader in detail. Follow up in 3 months. Discussion Notes I discussed the plan to order an echocardiogram to evaluate the patient's cardiac function and determine any underlying issues. We agreed to continue Midodrine therapy as the patient has not experienced any adverse effects. I reviewed the patient's psychiatric medications due to reported dizziness and noted adjustments to Divalproex. A follow-up appointment is scheduled in three months to reassess the patient's condition and medication efficacy. Patient was informed and verbally consented to the use of an ambient scribe for clinic note documentation during this visit. Orders: Orders CA echo transthoracic complete Today I95.9 - Hypotension, unspecified Patient Instructions: - Continue taking Midodrine as prescribed. - Attend the scheduled echocardiogram appointment. - Monitor for any new or worsening symptoms and report them. - Follow up in three months for reassessment. Coding Level of Care Code New Pt Level 3 (65153) Diagnoses Arterial hypotension I95.9
[2024-12-29 13:03] VITALS: BP 124/68; PULSE 78; BMI 28.5
== END 2024-12-29 13:37 | disposition home or self-care (01) ==
LOC: HO.HCS 12:56
PROVIDERS: PCP Nurse Practitioner Primary Care; Visit Provider Internal Medicine
DX: I95.9 Hypotension, unspecified (principal)
CPT/HCPCS: 99213

== ENCOUNTER 2025-02-04 10:53 | Outpatient (AMB) | payer MEDICARE, MEDICAID, SELFPAY ==
--- NOTE | 2025-02-04 10:55 | A.OFFVIS_ITS ---
Vital Signs 02/04/25 11:03 Height 5 ft 4 in Weight 176 lb BMI 30.2 BP 112/88 Blood Pressure Location Lt brachial Position Sitting Pulse 88 Pulse Oximetry (%) 98 Oxygen Delivery Method Room Air Intake Visit Reasons: Chronic Constipation f/u last seen 05/2024 Intake Note: Patient follow up for Chronic Constipation and US results. Abdomem/pelvis CT scan was done 07/2024. Patient denies any GI issues for today Consumer Marketing Specialist Required: No Accompanied by: Family/Other Allergies abacavir (ABACAVIR) Allergy (Severe, Verified 12/29/24 10:18) HIVES hydrochlorothiazide (HYDROCHLOROTHIAZIDE) Allergy (Severe, Verified 12/29/24 10:18) HIVES ibuprofen (From MOTRIN) Allergy (Severe, Verified 12/29/24 10:18) HIVES Penicillins (PENICILLINS) Allergy (Severe, Verified 12/29/24 10:18) HIVES tenofovir (From VIREAD) Allergy (Severe, Verified 12/29/24 10:18) HIVES tomato (TOMATO) Allergy (Severe, Verified 12/29/24 10:18) HIVES zidovudine (From RETROVIR) Allergy (Severe, Verified 12/29/24 10:18) HIVES lactose (Lactose) Adverse Reaction (Mild, Verified 12/29/24 10:18) DIARRHEA disoproxail Allergy (Mild, Uncoded 12/29/24 10:18) Unknown Medication List - Last Reconciled 02/04/25 by Helena Coon MD acetaminophen 500 mg PO Q6H PRN albuterol sulfate 90 mcg/actuation 2 puffs inhalation Q4H PRN atorvastatin 10 mg PO DAILY vfoqnwpjr-rffbtnuy-cvhunec ala 50-200-25 mg (Biktarvy) 1 tab PO DAILY calcium carbonate-vitamin D3 600 mg-10 mcg (400 unit) (Calcium 600 + D(3)) 1 tab PO BID chlorhexidine gluconate 0.12% 15 mL PO BID cyanocobalamin (vitamin B-12) (Vitamin B-12) 50 mcg PO DAILY dextran 70-hypromellose (Artificial Tears (PF) drops in a dropperette) 1 drp ophthalmic (eye) QID divalproex ER 1,000 mg PO BEDTIME divalproex ER 250 mg PO DAILY folic acid 1 mg PO DAILY lactase (Lactaid Fast Act) 18,000 units PO QIDWMHS PRN levothyroxine 75 mcg PO DAILY@0600 midodrine 5 mg PO TID multivitamin with folic acid 400 mcg (High Potency Multivitamin) 1 tab PO DAILY omeprazole 20 mg PO QAM 30 days quetiapine 200 mg PO TID 30 days sennosides-docusate sodium 8.6-50 mg (Stimulant Laxative Plus) 1 tab PO BID sertraline 100 mg PO DAILY simethicone 80 mg PO TID sodium chloride 0.65% (Saline Nasal) 1 spray intranasal BID wheat dextrin (Benefiber Sugar Free (dextrin)) 1 packet PO BID HPI HPI Chronic Constipation f/u last seen 05/2024: Details: GI CLINIC VISIT FOR THIS 64-YEAR-OLD FEMALE FOR FOLLOW-UP OF LIVER CIRRHOSIS WITH ELEVATED LFTS AND CHRONIC CONSTIPATION. TODAY'S VISIT Patient follow up for Chronic Constipation and US results. Abdomem/pelvis CT scan was done 07/2024. Patient denies any GI issues for today Complains of a sore back due to bed being too hard I am fine - tired all the time Not constipated - has a BM daily Pt is accompanied by a staff member of [facility] Assisted Complains of a sore back. Pt complains of intermittent constipation (Assisted staff reports she is not constipated) PAST VISIT: Noted periumblical pain yesterday and radiating around to the back Pain comes and goes and notes increased pain when having a BM and resolves after she has a BM. Has to drink a lot of water. Had diarrhea for 1 day last week Has a BM every other day with hard stool associated with straining Abd US results were reviewed Intermittent constipation. Notes intermittent RLQ pain which resolves after she has a BM. Having a BM daily with straining and hard stools Also has gas. Taking Senna 3 times a week and advised to take it every day. Notes some urinary burning with micturation. Has a BM in the morning or afternoon every other day Had COVID in June Loosing and gaining weight. Has loose stools 2-3 times a day without blood or mucous. Notes diarrhea with cheese and milk products and takes Lactaid milk. Feels tired and notes nausea. Complains of pain in the botton of her foot. Intermittent abdominal pain. Had a BM twice this week. Has a BM after she eats ice cream or takes a Latte ? Doing about the same. Denies recurrent rectal bleeding Complains of heartburn once in a while. Occasional loose stools and takes loperamide prn. ? Has GERD and notes dysphagia if she drinks water too fast. Lives in a Residential Home setting in her own apartment in [place]. ? [facility] [place] [facility] in the past. ? 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 ? Also heavy ETOH use from age 18/18 till age 39 yrs - clean and sober since then. ? Renal Failure and pancreatitis in 2008. ? Had vomiting and Jaundice in 2009 - diagnosed with Hep C and ?was treated. ? Constantly tired and fatigued. ? 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 ? CHRONIC ILLNESSES:?seasonal allergies, hepatitis C - treated, human immunodeficiency virus (HIV), positive, GERD, lactose intolerance, depression, insomnia, PTSD, herpes, prediabetic, hyperlipidemia ?PAST LABS IN [facility]?02/16/20 REVIEWED. WBC 4.4, HEMATOCRIT 43.1 PLATELET 85, INR 1.0 ? CR 1.25, TB 0.9 nA 144, total bilirubin 0.6 WITH NORMAL LFTS ? Iron studies showed iron 73, TIBC 354, % saturation 21, ferritin 344 ? Celiac serologies were negative, IgA was 131 ? Liver fibrosis score 0.63, liver fibrosis stage F3, necroinflammatory score 0.46 ?IMAGING STUDIES: 06/28/21 abd us showed: Slightly echogenic liver. No focal liver lesion is seen. Enlarged spleen. No ascites. Normal liver Doppler exam. 08/2020Question mild cirrhotic changes of the liver. No focal liver lesion seen. Splenomegaly. ?ENDOSCOPIC STUDIES:?02/07/21 COLONOSCOPY SHOWED: One medium sized polyp removed. Random biopsies were obtained from right and left colon to check for microscopic colitis Moderate diverticulosis seen in the left colon Plan:? Patient has an appointment on 02/23/21 in the GI Clinic with? Rubeela Shaggy, M.D. Repeat Colonoscopy interval based on path results - in 3 years if polyp is adenomatous and 10 years if polyp is hyperplastic. BIOPSIES SHOWED: A.? Colon, random right, biopsy:? Colonic mucosa within normal limits; negative for active, chronic or microscopic colitis. B.? Colon, random left, biopsy:? Colonic mucosa within normal limits; negative for active, chronic or microscopic colitis. C.? Rectum, polypectomy:? Clinically polypoid colonic mucosa noted; negative for a hyperplastic or neoplastic process. 09/08/19 EGD WAS NORMAL, NO VARICES WERE SEEN.? SAME-DAY COLONOSCOPY REVEALED MODERATE DIVERTICULOSIS AND NO POLYPS WERE D ETECTED.? REPEAT COLONOSCOPY IS ADVISED IN 5 YEARS DUE TO FAIR PREP AND POSITIVE FH OF COLON POLYPS (DAD). ?PAST VISIT: US results reviewed with the patient Bleeding stopped - notes only once in a while. Notes a sharp pain in her abdomen when she pushes during a BM. Notes hard stools. ?Intentional wt loss of 35 lbs - has been eating healthy - from 210 to 181 lbs. ? I am always constipated. ? Intermittent diarrhea - takes medications when she has diarrhea. ? Denies abdominal pain. ? Continues to have intermittent bleeding _ ? vaginal versus rectal ? Intermittent vaginal bleeding - 2-3 times this week. scheduled for pelvic US on 12/22/20 ? every time she wipes she notices some blood - unsure if she is bleeding from the vagina. ? ? ? Periods stopped when she was 39 yrs ? ? ? Denies having a recent Pelvic examination. ? ? ? Notices lower abdominal cramps - like menstrual cramps. ? ? ? Exercising daily (does Kavin) and weighs 183 lbs (decreased from 210 lbs). ? ? ? Eating a healthy diet. ? I am doing fine and walk around ? I am always tired ? Lost weight from > 200 to 194 ? Has been doing well and denies stomach issues at this time. ? Patient denies change in bowel habits, black stools or rectal bleeding ? Denies dysphagia, heartburn, nausea or vomiting, change in appetite?or [facility] Medical History Positive serological reaction for syphilis Hypothyroidism Hx of acute pancreatitis Hx of acute renal failure History of ETOH abuse Hx of herpes genitalis History of diverticulosis Constipation History of intravenous drug abuse Developmental delay, mild COVID-19 vaccine series completed Depression PTSD (post-traumatic stress disorder) Hyperlipidemia Seasonal allergies Hx of hepatitis C HIV (human immunodeficiency virus infection) Nocturia Frequency of micturition Surgical History History of colonoscopy Family History Mother Alzheimer disease Breast cancer HTN (hypertension) Paternal Aunt Breast cancer Social History Household Members: None Household Members Other:: [employer] Housing: Apartment Housing Other:: Assisted Are you a primary healthcare manager to a significant other at home: No Do you presently have visiting nurse or other home services: Yes Unable to assess alcohol history related to: Unknown Alcohol intake: never Patient Tobacco Use Status: Never used Tobacco e-Cigarette/Vaping Use: Never Used Second Hand Smoke Exposure: No service: No Sexual orientation: Decline to Answer Female Reproductive History Menstrual Age of Menarche: 11 Review of Systems Const All systems reviewed & are unremarkable except as noted in HPI and below Physical Exam Vital Signs: Last Vital Signs Pulse 88 02/04/25 11:03 BP 112/88 02/04/25 11:03 Pulse Ox 98 02/04/25 11:03 Oxygen Delivery Method Room Air 02/04/25 11:03 BMI result Body Mass Index 30.2 Const General: healthy appearing and no acute distress Nutritional Appearance: obese Orientation/consciousness: patient oriented x3 and Other orientation findings (Developmental delay) Limitations: ambulation with walker (for long distance) HEENT Head: Yes normal to inspection Ears: hearing grossly normal bilaterally Mouth: Normal oral and palatal mucosa present Eyes Sclerae: sclerae normal Pupils: Equal, round and reactive pupils present Neck Neck: Yes normal visual inspection Chest Chest palpation & inspection: normal inspection of the chest Resp Effort & Inspection: normal respiratory effort Auscultation: clear to auscultation bilaterally Cardio Palpation: normal PMI Rate: regular rate Rhythm: regular rhythm Heart sounds: S1 normal heart sound present, S2 normal heart sound present and no murmurs GI Palpation (GI): Soft to palpation, nontender and No hepatosplenomegaly present Auscultation: normal bowel sounds Rectal Exam - Female: deferred Skin General skin exam: no rashes or lesions noted Neuro General: patient oriented x3, gait normal and moves all extremities Cranial nerves: Yes Equal, round and reactive pupils present Psych Appearance: grossly normal Mental Status: mental status grossly normal Assessment & Plan Assessment & Plan (1) GERD (gastroesophageal reflux disease): Code(s): K21.9 - Gastro-esophageal reflux disease without esophagitis Category: Medical (2) Cirrhosis of liver without ascites: Code(s): K74.60 - Unspecified cirrhosis of liver Category: Medical (3) Colon cancer screening: Comment: 09/24 COLONOSCOPY REVEALED MODERATE DIVERTICULOSIS AND NO POLYPS WERE DETECTED. REPEAT COLONOSCOPY IS ADVISED IN 5 YEARS DUE TO FAIR PREP AND POSITIVE FH OF COLON POLYPS (DAD) - action set in [facility] Code(s): Z12.11 - Encounter for screening for malignant neoplasm of colon Category: Medical (4) Chronic constipation: Code(s): K59.09 - Other constipation Category: Medical Plan 64 YF with cognitive developmental delay, seasonal allergies, hepatitis C - treated, human immunodeficiency virus (HIV), positive, GERD, lactose intolerance, depression, insomnia, PTSD, herpes, prediabetic, hyperlipidemia seen for elevated LFTs with cirrhosis. Patient is on treatment for HIV. She has a history of past hepatitis C which has been treated (records pertaining to treatment are not available) since recent hepatitis C viral load has been negative. Past lab evaluation with [facility] was negative 2017. Likely cause of elevated LFT is steatohepatitis related to obesity - LFT are normal since she lost 27 lbs. Iron studies were not suggestive of hemochromatosis and celiac serologies were normal. Liver fibrosis score was 0.63 and liver fibrosis stage was F3 and necroinflammatory score was 0.46 indicating that she may have compensated cirrhosis. Cirrhosis is likely multifactorial - steatohepatitis, past EtOH use and hepatitis C infection. MELD score is 8. Abdominal ultrasound showed mild splenomegaly without hepatic mass and no ascites. Patient admits to intentional weight loss with the normalization of LFTs indicating elevated LFTs were likely due to steatohepatitis. 05/09/23 Pt complains of worsening constipation. She was advised to increase Senna plus to 2 capsules at bedtime for constipation Schedule an [facility] US for HCC surveillance. 11/14/23 Having a BM daily with straining and hard stools Taking Senna 3 times a week and advised to take it every day. 03/26/24 Noted periumblical pain yesterday and radiating around to the back Pain comes and goes and notes increased pain when having a BM and resolves after she has a BM. Has to drink a lot of water. Had diarrhea for 1 day last week Has a BM every other day with hard stool associated with straining Advised to increase senna to twice a day for constipation 05/14/24 Pt complains of intermittent constipation (Assisted staff reports she is not constipated) 02/04/25 schedule abdominal ultrasound with elastography FU in 4 months Orders: Orders US abdomen adan w elastography Today K74.60 - Unspecified cirrhosis of liver Coding Level of Care Code Est Pt Level 4 (19623) Complex EM visit Add On G2211 Diagnoses GERD (gastroesophageal reflux disease) K21.9 Cirrhosis of liver without ascites K74.60 Colon cancer screening Z12.11 Chronic constipation K59.09 Time Spent (min) 25
[2025-02-04 11:03] VITALS: BP 112/88; PULSE 88; O2SAT 98; BMI 30.2
--- OUTSIDE RECORDS SUMMARY | 2025-02-04 11:44 | XMS_ITS | Encounter Summary ---
Author Organization [facility] Address [address] [place] [address] Care Team Providers Care Value Stream Coach Name Role Phone Neftali Nina Marsh NP Primary Care Provider [phone] Encounter Details Date Type Department Care Team (Late st Contact Info) Description 09/29/2024 Lab Requisition [facility] - Main Lab [address] [facility] [place] [address] Stephanie Celis MD [address] [phone] Hyperlipidemia, unspecified; Unspecified cirrhosis of liver (CMS/HCC [...] AM EDT) WBC 4.0(L) 4.8 - 10.8 K/[facility] LAB HEMETOLOGY METHOD 09/29/2024 10:51 AM EDT [facility] ([facility] LAB RBC 3.50(L) 3.80 - 4.80 M/mcL LAB HEMETOLOGY METHOD 09/29/2024 10:51 AM [facility] LAB Hemoglobin 12.9 11.5 - 16.0 g/dL LAB HEMETOLOGY METHOD 09/29/2024 10:51 AM [facility] LAB Hematocrit 39.1 35.0 - 47.0 % LAB HEMETOLOGY METHOD 09/29/2024 10:51 AM [facility] LAB MCV 111.1(H) 79.0 - 98.0 FL LAB HEMETOLOGY METHOD 09/29/2024 10:51 AM [facility] LAB MCH 36.6(H) 27.0 - 32.0 pcg LAB HEMETOLOGY METHOD 09/29/2024 10:51 AM [facility] LAB MCHC 33.0 32.0 - 37.0 g/dL LAB HEMETOLOGY METHOD 09/29/2024 10:51 AM [facility] LAB RDW 13.1 11.0 - 15.0 % LAB HEMETOLOGY METHOD 09/29/2024 10:51 AM [facility] LAB Platelets 101(L) 130 - 400 K/mcL LAB HEMETOLOGY METHOD 09/29/2024 10:51 AM [facility] LAB MPV 9.5 7.0 - 11.0 FL LAB HEMETOLOGY METHOD 09/29/2024 10:51 AM [facility] LAB NRBC 0.0 <1.0 % LAB HEMETOLOGY METHOD 09/29/2024 10:51 AM [facility] LAB NRBC Absolute 0.00 <0.10 K/mcL LAB HEMETOLOGY METHOD 09/29/2024 10:51 AM [facility] LAB Blood Venous blood specimen / Unknown Venipuncture / Unknown 09/29/2024 8:28 AM EDT 09/29/2024 10:07 AM EDT us Stephaine Celis MD LAB BLOOD ORDERABLES Fin al Result [facility] ([facility]) [facility] LAB [address] [place] [address], documented in this encounter Visit Diagnoses Diagnosis Hyperlipidemia, unspecified Unspecified cirrhosis of liver (CMS/HCC V24, CMS/HCC V28) Chronic kidney disease, stage 3 unspecified (CMS/HCC V24, CMS/HCC V28) documented in this encounter Care Teams Value Stream Coach Relationship Specialty Start Date End Date Nina Lindsay NP [address] [place] [phone] PCP - General 10/07/23 documented as of this encounter
== END 2025-02-04 11:59 | disposition home or self-care (01) ==
LOC: HO.HGI 10:54
PROVIDERS: PCP Nurse Practitioner Primary Care; Visit Provider Internal Medicine Gastroenterology
DX: K21.9 Gastro-esophageal reflux disease without esophagitis (principal); K74.60 Unspecified cirrhosis of liver; K59.09 Other constipation
CPT/HCPCS: 99214; G2211

== ENCOUNTER → 2025-02-04 12:13 | Outpatient (REF) | payer MEDICARE, MEDICAID, SELFPAY ==
--- NOTE | 2025-02-04 12:15 | CA_ITS ---
Transthoracic Echocardiogram Patient (Last, First, Middle): Adrianne Caballero M Gender: Female Date of : 1960 Age: 64 Procedure Date: 02/04/2025 Procedure Type: Transthoracic Echocardiogram Location: OP Height: 167.64 cm Weight: 79.83 kg BSA: 1.89 m2 Heart Rate: 74 bpm BP: 130 / 72 mmHg Communications Coordinator: LUIS DAMICO Referring MD: Alex Yao MD Manager Hydraulic: Solo Gale MD Symptoms: I95.9 - Hypotension, unspecified Study Quality: Fair ECG Rhythm: Sinus Conclusions: - Essentially normal study with upper limits of normal ascending aortic size and impaired relaxation filling pattern on LV inflow Findings Left Ventricle Normal left ventricular size, thickness, and systolic function. The visually estimated ejection fraction is between 60-65%. Spectral Doppler is indicative of an impaired relaxation filling pattern. E/E prime ratio is between 8 and 15 consistent with indeterminate filling pressures. Right Ventricle Normal right ventricular cavity size and systolic function. Atria Both atria are normal in size. There is no evidence of interatrial shunt. Aortic Valve Normal aortic valve structure and function. There is no aortic valve stenosis. There is no aortic valve regurgitation. Mitral Valve Normal mitral valve structure and function. There is trace mitral valve regurgitation. There is no mitral valve stenosis. Pulmonic Valve The pulmonic valve is likely normal. Tricuspid Valve Likely normal tricuspid valve structure and function. Tricuspid regurgitation envelope is inadequate for calculation of right ventricular systolic pressure. Great Vessels All visible segments of the aorta are normal in size. The pulmonary artery was not well visualized. Venous The inferior vena cava is normal in size and collapses greater than 50% with inspiration. Pericardium/Pleural There is no evidence of pericardial effusion. Prior Study Comparison no previous study in the last 5 years for comparison Measurements 2D Linear Measurements IVSd: 0.93 0.6-0.9/0.6-1.0 cm LVIDd: 3.68 3.9-5.3/4.2-5.9 cm LVIDd Index: 1.95 2.4-3.2/2.2-3.1 cm/m2 LVIDs: 2.33 2.0-3.6 cm LVPWd: 0.75 0.7-1.1 cm LA Diam: 2.60 2.7-3.8/3.0-4.0 cm LAIDs Index: 1.38 1.5-2.3 cm/m2 LV Mass: 107.87 67-162/88-224 g LV Mass Index: 57.08 43-95/49-115 g/m2 LVOT Diam: 2.00 3.0+(-)1.3 cm 2D Systolic Function EF 4C: 67.30 >55% EF 2C: 57.50 >55% EF BiP: 61.50 >55% Mitral Valve MV Pk E: 0.51 MV PK A: 0.85 MV Decel Time: 289.00 E/A: 0.60 E'Lateral: 7.07 E'Medial: 3.59 E/E' Med: 14.30 E/E' Lat: 7.30 PHT: 85.00 MVA PHT: 2.59 Decel [place]: 1.78 Aortic Valve AoV Pk Julio C: 0.97 AoV Mn Julio C: 0.74 AoV VTI: 0.22 AoV Pk Grad: 4.00 Aov Mn Grad: 2.00 KASSIE Cont.VTI: 3.00 LVOT LVOT Pk Julio C: 0.93 LVOT Mn Julio C: 0.71 LVOT VTI: 0.21 LVOT Pk Grad: 3.00 LVOT Mn Grad: 2.00 LVOT Diam: 2.00 LVOT Area: 3.14 Diastolic Function MV Pk E: 0.51 MV Pk A: 0.85 E/A: 0.60 E'Medial: 3.59 E/E' Med: 14.30 E' Laterial: 7.07 E/E' Lat: 7.30 Right Ventricle TAPSE (mm): 25.60 TVS' Julio C: 11.70 Tricuspid Valve RA Press: 3.00 Great Vessels Aorta Sinus of Valsalva: 3.60 2.0-3.5 cm Ao Asc: 3.50 2.1-3.4 cm Ao Arch: 2.50 Pulmonary Valve PV Pk Julio C: 0.77 Peak PV Grad: 2.00 Updated in Other Vendor System with Status of Final Solo Gale MD electronically signed on 02/04/2025 4:04:07 PM with status of Final
== END ==
LOC: HO.CARD 12:13
PROVIDERS: PCP Nurse Practitioner Primary Care; Visit Provider Internal Medicine
DX: I95.9 Hypotension, unspecified (principal); K21.9 Gastro-esophageal reflux disease without esophagitis; K59.09 Other constipation; K74.60 Unspecified cirrhosis of liver; Z12.11 Encounter for screening for malignant neoplasm of colon; Z21 Asymptomatic human immunodeficiency virus [HIV] infection status; Z79.899 Other long term (current) drug therapy
CPT/HCPCS: 93306; 99212

== ENCOUNTER → 2025-02-04 12:15 | Outpatient (BNV) | payer MEDICARE, MEDICAID, SELFPAY | PROVIDERS: PCP Nurse Practitioner Primary Care; Visit Provider Internal Medicine Cardiovascular Disease | DX: I51.89 Other ill-defined heart diseases (principal) | CPT/HCPCS: 93306 ==

== ENCOUNTER 2025-03-23 11:05 | Outpatient (AMB) | payer MEDICARE, MEDICAID, SELFPAY ==
--- NOTE | 2025-03-23 11:25 | HO.NEPHOV ---
Vital Signs 03/23/25 11:35 Height 5 ft 4 in Weight 187 lb BMI 32.1 BP 100/70 Blood Pressure Location Lt brachial Position Sitting Pulse 86 Pulse Source Pulse Oximeter Pulse Oximetry (%) 98 Oxygen Delivery Method Room Air Intake Visit Reasons: F/U-LVM Generation Engineering Technologist Required: No Accompanied by: Other Relationship Allergies abacavir (ABACAVIR) Allergy (Severe, Verified 03/23/25 11:35) HIVES hydrochlorothiazide (HYDROCHLOROTHIAZIDE) Allergy (Severe, Verified 03/23/25 11:35) HIVES ibuprofen (From MOTRIN) Allergy (Severe, Verified 03/23/25 11:35) HIVES Penicillins (PENICILLINS) Allergy (Severe, Verified 03/23/25 11:35) HIVES tenofovir (From VIREAD) Allergy (Severe, Verified 03/23/25 11:35) HIVES tomato (TOMATO) Allergy (Severe, Verified 03/23/25 11:35) HIVES zidovudine (From RETROVIR) Allergy (Severe, Verified 03/23/25 11:35) HIVES lactose (Lactose) Adverse Reaction (Mild, Verified 03/23/25 11:35) DIARRHEA disoproxail Allergy (Mild, Uncoded 12/29/24 10:18) Unknown HPI Comments Details: I had the privilege of seeing Adrianne in follow up for CKD . She has history of hepatitis C which has been treated. She is on antiretrovirals for HIV. She is compliant with her medications. She is not known to have any proteinuria. She denies any nausea, vomiting, diarrhea, shortness of breath, proximal nocturnal dyspnea, orthopnea, pedal edema, hematuria, nephrolithiasis or urinary symptoms. She does not have any orthostasis. She is not hypertensive. She has history of liver cirrhosis which is compensated now. She does not take any nonsteroidal anti-inflammatories. She has no hematemesis or melena. She has not had any recurrent sinusitis, epistaxis, hemoptysis, hematuria, photosensitivity, skin rashes. She has a renal cyst by imaging. She has questionable right hydro by imaging. She has been taking Midodrine and was also seen by blow torch burner for low BP's.. [facility] Medical History (Updated 03/23/25 @ 11:50 by Ronald Mistry MD) Tremor of both hands Positive serological reaction for syphilis Hypothyroidism Hx of acute pancreatitis Hx of acute renal failure History of ETOH abuse Hx of herpes genitalis History of diverticulosis Constipation History of intravenous drug abuse Developmental delay, mild COVID-19 vaccine series completed Depression PTSD (post-traumatic stress disorder) Hyperlipidemia Seasonal allergies Hx of hepatitis C HIV (human immunodeficiency virus infection) Nocturia Frequency of micturition Surgical History History of colonoscopy Family History Mother Alzheimer disease Breast cancer HTN (hypertension) Paternal Aunt Breast cancer Social History Household Members: None Household Members Other:: [employer] Housing: Apartment Housing Other:: M[facility] Are you a primary animal care assistant to a significant other at home: No Do you presently have visiting nurse or other home services: Yes Unable to assess alcohol history related to: Unknown Alcohol intake: never Patient Tobacco Use Status: Never used Tobacco e-Cigarette/Vaping Use: Never Used Second Hand Smoke Exposure: No service: No Sexual orientation: Decline to Answer Female Reproductive History Menstrual Age of Menarche: 11 Review of Systems Const All systems reviewed & are unremarkable except as noted in HPI and below Physical Exam Vital Signs: Last Vital Signs Pulse 86 03/23/25 11:35 BP 100/70 03/23/25 11:35 Pulse Ox 98 03/23/25 11:35 Oxygen Delivery Method Room Air 03/23/25 11:35 BMI result Body Mass Index 32.1 Const General: comfortable and no acute distress Orientation/consciousness: patient oriented x3 HEENT Head: Yes normocephalic Mouth: Normal oral and palatal mucosa present Eyes EOM: EOMs intact bilaterally Neck Neck: Yes supple Resp Auscultation: clear to auscultation bilaterally Cardio Jugular venous distension: no JVD Rate: regular rate GI Palpation (GI): Soft to palpation Auscultation: normal bowel sounds General: Yes no CVA tenderness Back/Spine/Pelvis Back: no CVA tenderness Skin General skin exam: no rashes or lesions noted Neuro General: patient oriented x3 and moves all extremities Extrem General: Yes no pedal edema Results Reviewed Nephrology Results: Hgb, (12.0-16.0) 13.0 g/dl 12/29/24 WBC, (4.8-10.8) 4.8 X10*3/uL 12/29/24 Plt Count, (160-400) 86 X10*3/uL L 12/29/24 Sodium, (135-145) 140 mmol/L 12/29/24 Potassium, (3.3-5.1) 4.9 mmol/L 12/29/24 Chloride, (96-108) 105 mmol/L 12/29/24 Carbon Dioxide, (22-29) 26 mmol/L 12/29/24 BUN, (9-16) 20 mg/dL H 12/29/24 Creatinine, (0.5-1.4) 1.18 mg/dL 12/29/24 Calcium, (8.4-10.2) 9.9 mg/dL 12/29/24 Urine Creatinine 109.27 mg/dL 12/29/24 Renal US 04/10/24 Assessment & Plan Assessment & Plan (1) Nephrolithiasis: Code(s): N20.0 - Calculus of kidney Category: Medical (2) Renal cyst: Code(s): N28.1 - Cyst of kidney, acquired Category: Medical (3) Chronic kidney disease, stage 3, mod decreased GFR: Code(s): N18.30 - Chronic kidney disease, stage 3 unspecified Category: Medical Qualifiers: Chronic kidney disease stage 3 subtype: stage 3a (GFR 45-59) Qualified Code(s): N18.31 - Chronic kidney disease, stage 3a (4) Arterial hypotension: Code(s): I95.9 - Hypotension, unspecified Category: Medical Qualifiers: Hypotension type: idiopathic hypotension Qualified Code(s): I95.0 - Idiopathic hypotension Plan Adrianne has CKD due to unknown etiology. She has history of hepatitis C which has been treated. She has HIV and is on anti-retroviral medications. She is not known to have any significant proteinuria. She is known to have cirrhosis but compensated now. Her serum creatinine is stable . She has a renal cyst by imaging. She has questionable right hydro and follows up with Urology. She does not need a renal biopsy now. She is on Midodrine which can be increased to 10 mg tid if her BP still runs low. We also should check her cortisol level. I did not make any medication changes today. She is not on any MATTIE inhibitor, ARB or nonsteroidal anti-inflammatories. She is going to be followed up with me for continued care. Orders: Orders Creatinine 1 Year I95.0 - Idiopathic hypotension, N18.31 - Chronic kidney disease, stage 3a, N20.0 - Calculus of kidney, N28.1 - Cyst of kidney, acquired Blood Urea Nitrogen 1 Year I95.0 - Idiopathic hypotension, N18.31 - Chronic kidney disease, stage 3a, N20.0 - Calculus of kidney, N28.1 - Cyst of kidney, acquired Calcium 1 Year I95.0 - Idiopathic hypotension, N18.31 - Chronic kidney disease, stage 3a, N20.0 - Calculus of kidney, N28.1 - Cyst of kidney, acquired Protein Creatinine Ratio, Ur 1 Year I95.0 - Idiopathic hypotension, N18.31 - Chronic kidney disease, stage 3a, N20.0 - Calculus of kidney, N28.1 - Cyst of kidney, acquired UA and rflx microscopic 1 Year I95.0 - Idiopathic hypotension, N18.31 - Chronic kidney disease, stage 3a, N20.0 - Calculus of kidney, N28.1 - Cyst of kidney, acquired Cortisol Random 1 Year I95.0 - Idiopathic hypotension, N18.31 - Chronic kidney disease, stage 3a, N20.0 - Calculus of kidney, N28.1 - Cyst of kidney, acquired Electrolytes 1 Year I95.0 - Idiopathic hypotension, N18.31 - Chronic kidney disease, stage 3a, N20.0 - Calculus of kidney, N28.1 - Cyst of kidney, acquired Coding Level of Care Code Est Pt Level 4 (89933) Diagnoses Nephrolithiasis N20.0 Renal cyst N28.1 Stage 3a chronic kidney disease N18.31 Chronic kidney disease stage 3 subtype: stage 3a (GFR 45-59) Idiopathic hypotension I95.0 Hypotension type: idiopathic hypotension
[2025-03-23 11:35] VITALS: BP 100/70; PULSE 86; O2SAT 98; BMI 32.1
--- OUTSIDE RECORDS SUMMARY | 2025-03-23 15:09 | XMS_ITS | Encounter Summary ---
Author Organization [facility] Address [address] [place] [address] Care Team Providers Care Dairy Scientist Name Role Phone Neftali Nina Marsh NP Primary Care Provider [phone] Encounter Details Date Type Department Care Team (Late st Contact Info) Description 09/08/2024 Lab Requisition [facility] - Main Lab [address] [facility] [place] [address] Stephanie Celis MD [address] [address] Other termite treater (current) drug therapy Social History Tobacco Use Types Packs/Day Years Used Date Smoking Tobacco: Never Assessed Comments Unknown Sex and Gender Information Value Date Recorded Sex Assigned at Not on file Legal Sex Female 11:02 AM EDT Gender Identity Not on file Sexual Orientation Not on file documented as of this encounter Plan of Treatment Upcoming Encounters Date Type Department Care Team (Late Contact Info) Description 03/24/2025 10:00 AM EDT Office Visit Orthopedic Surgery - [place] [address] [address] Ulices Crowell, TRACY 175 [facility] [address] [place] [address] documented as of this encounter Procedures Procedure Name Priority Date/Time Associated Diagnosis Comments COMPLETE BLOOD COUNT Routine 09/08/2024 7:20 AM EST Other termite treater (current) drug therapy BASIC METABOLIC PANEL Routine 09/08/2024 7:20 AM EST Other termite treater (current) drug therapy documented in this encounter Results * (ABNORMAL) Basic metabolic panel (09/08/2024 7:20 AM EST) Sodium 140 133 - 145 mmol/L LAB CHEMISTRY METHOD 09/08/2024 10:01 AM [facility] Potassium 4.2 3.5 - 5.5 mmol/L LAB CHEMISTRY METHOD 09/08/2024 10:01 AM [facility] Chloride 103 96 - 110 mmol/L LAB CHEMISTRY METHOD 09/08/2024 10:01 AM [facility] CO2 26 21 - 32 mmol/L LAB CHEMISTRY METHOD 09/08/2024 10:01 AM [facility] Anion Gap 11 3 - 11 LAB CHEMISTRY METHOD 09/08/2024 10:01 AM [facility] Glucose 109(H) 70 - 100 mg/dL LAB CHEMISTRY METHOD 09/08/2024 10:01 AM [facility] BUN 9 5 - 25 mg/dL LAB CHEMISTRY METHOD 09/08/2024 10:01 AM [facility] Creatinine 1.08 0.50 - 1.10 mg/dL LAB CHEMISTRY METHOD 09/08/2024 10:01 AM [facility] LAB eGFR 58(L) >=60 mL/min/1. 73m2 LAB CHEMISTRY METHOD 09/08/2024 10:01 AM [facility] LAB Comment:Calculation based on the Chronic Kidney Disease Epidemiology Collaboration (CKD-EPI) equation refit without adjustment for race. BUN/Creatinine Ratio 8.3 LAB CHEMISTRY METHOD 09/08/2024 10:01 AM [facility] Calcium 8.6 8.5 - 10.5 mg/dL LAB CHEMISTRY METHOD 09/08/2024 10:01 AM [facility] Blood Venous blood specimen / Unknown Venipuncture / Unknown 09/08/2024 7:20 AM EST 09/08/2024 9:03 AM EST Stephanie Celis MD LAB BLOOD ORDERABLES Fin al Result [facility] [address] [place] [address], * (ABNORMAL) Complete blood count (09/08/2024 7:20 AM EST) WBC 2.1(L) 4.8 - 10.8 K/mcL LAB HEMETOLOGY METHOD 09/08/2024 10:40 AM [facility] RBC 2.80(L) 3.80 - 4.80 M/mcL LAB HEMETOLOGY METHOD 09/08/2024 10:40 AM [facility] Hemoglobin 10.6(L) 11.5 - 16.0 g/dL LAB HEMETOLOGY METHOD 09/08/2024 10:40 AM [facility] Hematocrit 31.8(L) 35.0 - 47.0 % LAB HEMETOLOGY METHOD 09/08/2024 10:40 AM [facility] MCV 113.2(H) 79.0 - 98.0 FL LAB HEMETOLOGY METHOD 09/08/2024 10:40 AM [facility] MCH 37.7(H) 27.0 - 32.0 pcg LAB HEMETOLOGY METHOD 09/08/2024 10:40 AM [facility] LAB MCHC 33.3 32.0 - 37.0 g/dL LAB HEMETOLOGY METHOD 09/08/2024 10:40 AM [facility] RDW 13.2 11.0 - 15.0 % LAB HEMETOLOGY METHOD 09/08/2024 10:40 AM [facility] Platelets 34(L) 130 - 400 K/mcL LAB HEMETOLOGY METHOD 09/08/2024 10:40 AM [facility] Comment:previously verified by slide MPV 9.7 7.0 - 11.0 FL LAB HEMETOLOGY METHOD 09/08/2024 10:[address] [facility] NRBC 0.0 <1.0 % LAB HEMETOLOGY METHOD 09/08/2024 10:[address] [facility] NRBC Absolute 0.00 <0.10 K/mcL LAB HEMETOLOGY METHOD 09/08/2024 10:[address] [facility] Blood Venous blood specimen / Unknown Venipuncture / Unknown 09/08/2024 7:20 AM EST 09/08/2024 9:03 AM EST us Stephanie Celis MD LAB BLOOD ORDERABLES Fin al Result [facility] [address] [place] [address], documented in this encounter Visit Diagnoses Diagnosis Other snf (current) drug therapy documented in this encounter Care Teams Dairy Scientist Relationship Specialty Start Date End Date Nina Lindsay NP [address] [phone] PCP - General 10/07/23 documented as of this encounter
--- OUTSIDE RECORDS SUMMARY | 2025-03-23 15:09 | XMS_ITS | Encounter Summary ---
Author Organization [facility] Address [address] [place] [address] Care Team Providers Care Telephone Order Clerk Room Service Name Role Phone LindsayNina Salma NGUYEN Primary Care Provider [phone] Encounter Details Date Type Department Care Team (Late st Contact Info) Description 09/22/[address] [facility] - Main Lab 299 [facility] [place] [address] Stephanie Celis MD [address] [address] Other drug-induced pancytopenia (CMS/HCC V24); Chronic kidney [...] AM EDT Office Visit Orthopedic Surgery - [place] [address] [phone] Ulices Crowell, DPSwati [address] [address] documented as of this encounter Procedures Procedure [...] Basic metabolic panel (09/22/2024 7:02 AM EDT) Sodium 138 133 - 145 mmol/L LAB CHEMISTRY METHOD 09/22/2024 10:05 AM [facility] Potassium 4.0 3.5 - 5.5 mmol/L LAB CHEMISTRY METHOD 09/22/2024 10:05 AM [facility] Chloride 103 96 - 110 mmol/L LAB CHEMISTRY METHOD 09/22/2024 10:05 AM [facility] CO2 27 21 - 32 mmol/L LAB CHEMISTRY METHOD 09/22/2024 10:05 AM [facility] Anion Gap 8 3 - 11 LAB CHEMISTRY METHOD 09/22/2024 10:05 AM [facility] Glucose 105(H) 70 - 100 mg/dL LAB CHEMISTRY METHOD 09/22/2024 10:05 AM [facility] BUN 15 5 - 25 mg/dL LAB CHEMISTRY METHOD 09/22/2024 10:05 AM [facility] Creatinine 1.15(H) 0.50 - 1.10 mg/dL LAB CHEMISTRY METHOD 09/22/2024 10:05 AM [facility] eGFR 54(L) >=60 mL/min/1. 73m2 LAB CHEMISTRY METHOD 09/22/2024 10:05 AM [facility] Comment:Calculation based on the Chronic Kidney Disease Epidemiology Collaboration (CKD-EPI) equation refit without adjustment for race. BUN/Creatinine Ratio 13.0 LAB CHEMISTRY METHOD 09/22/2024 10:05 AM [facility] Calcium 8.9 8.5 - 10.5 mg/dL LAB CHEMISTRY METHOD 09/22/2024 10:05 AM EDT [facility] Blood Venous blood specimen / Unknown Venipuncture / Unknown 09/22/2024 7:02 AM EDT 09/22/2024 8:33 AM EDT us Stephanie Celis MD LAB BLOOD ORDERABLES Fin al Result [facility] [address] [place] [address], * (ABNORMAL) Complete blood count (09/22/2024 7:02 AM EDT) WBC 2.2(L) 4.8 - 10.8 K/mcL LAB [facility]OLOG[facility] RBC 2.80(L) 3.80 - 4.80 M/mcL LAB HEMETOLOGY METHOD 09/22/2024 10:32 AM EDT [facility] Hemoglobin 10.5(L) 11.5 - 16.0 g/dL LAB HEMETOLOGY METHOD 09/22/2024 10:32 AM [facility] Hematocrit 30.9(L) 35.0 - 47.0 % LAB HEMETOLOGY METHOD 09/22/2024 10:32 AM [facility] MCV 110.4(H) 79.0 - 98.0 FL LAB HEMETOLOGY METHOD 09/22/2024 10:32 AM EDT [facility] MCH 37.5(H) 27.0 - 32.0 pcg LAB HEMETOLOGY METHOD 09/22/2024 10:32 AM EDT [facility] MCHC 34.0 32.0 - 37.0 g/dL LAB HEMETOLOGY METHOD [facility]/22[facility]24 [facility] RDW 13.2 11.0 - 15.0 % LAB HEMETOLOGY METHOD 09/22/2024 10:32 AM EDT [facility] Platelets 66(L) 130 - 400 K/mcL LAB HEMETOLOGY METHOD 09/22/2024 10:32 AM EDT [facility] Comment:previously verified by slide MPV 9.2 7.0 - 11.0 FL LAB HEMETOLOGY METHOD 09/22/2024 10:32 AM EDT [facility] NRBC 0.0 <1.0 % [facility]/22/2024 10:32 AM EDT [facility] NRBC Absolute 0.00 <0.10 K/mcL [facility] 09/22/2024 10:32 AM EDT [facility] Blood Venous blood specimen / Unknown Venipuncture / Unknown 09/22/2024 7:02 AM EDT 09/22/2024 8:33 AM EDT us Stephanie Celis MD LAB BLOOD ORDERABLES Fin al Result [facility] [address] [place] [address], documented in this encounter Visit Diagnoses Diagnosis Other drug-induced pancytopenia (CMS/HCC V24) Other drug-induced pancytopenia Chronic kidney disease, stage 3 unspecified (CMS/HCC V24, CMS/HCC V28) documented in this encounter Care Teams Telephone Order Clerk Room Service Relationship Specialty Start Date End Date Nina Lindsay NP [address] [place] [phone] PCP - General 10/07/23 documented as of this encounter
--- OUTSIDE RECORDS SUMMARY | 2025-03-23 15:09 | XMS_ITS | Encounter Summary ---
Author Organization [facility] Address [address] [place] [address] Care Team Providers Care Treatment Manager Name Role Phone LindsayNina Salma NGUYEN Primary Care Provider [phone] Encounter Details Date Type Department Care Team (Late st Contact Info) Description 08/07/2024 Lab Requisition [facility] - Main Lab 299 [facility] [place] [address] Stephanie Celis MD [address] [address] Hyperlipidemia, unspecified; Hypothyroidism, unspecified Social History Tobacco [...] Encounters Date Type Department Care Team (Late st Contact Info) Description 03/24/2025 10:00 AM EDT Office Visit Orthopedic Surgery - [place] [address] [address] Ulices Crowell, TRACY [address] [address] documented as of this encounter Procedures Procedure Name Priority Date/Time Associated Diagnosis Comments COMPLETE BLOOD COUNT Routine 08/10/2024 8:44 AM EST Hyperlipidemia, unspecified Hypothyroidism, unspecified BASIC METABOLIC PANEL Routine 08/10/2024 8:44 AM EST Hyperlipidemia, unspecified Hypothyroidism, unspecified documented in this encounter Results * (ABNORMAL) Basic metabolic panel (08/10/2024 8:44 AM EST) Sodium 139 133 - 145 mmol/L LAB CHEMISTRY METHOD 08/10/2024 1:16 PM [facility] Potassium 3.6 3.5 - 5.5 mmol/L LAB CHEMISTRY METHOD 08/10/2024 1:16 PM [facility] Chloride 103 96 - 110 mmol/L LAB CHEMISTRY METHOD 08/10/2024 1:16 PM [facility] CO2 29 21 - 32 mmol/L LAB CHEMISTRY METHOD 08/10/2024 1:16 PM [facility] Anion Gap 7 3 - 11 LAB CHEMISTRY METHOD 08/10/2024 1:16 PM [facility] Glucose 128(H) 70 - 100 mg/dL LAB CHEMISTRY METHOD 08/10/2024 1:16 PM [facility] BUN 22 5 - 25 mg/dL LAB CHEMISTRY METHOD 08/10/2024 1:16 PM [facility] Creatinine 1.37(H) 0.50 - 1.10 mg/dL LAB CHEMISTRY METHOD 08/10/2024 1:16 PM [facility] eGFR 44(L) >=60 mL/min/1. 73m2 LAB CHEMISTRY METHOD 08/10/2024 1:16 PM [facility] Comment:Calculation based on the Chronic Kidney Disease Epidemiology Collaboration (CKD-EPI) equation refit without adjustment for race. BUN/Creatinine Ratio 16.1 LAB CHEMISTRY METHOD 08/10/2024 1:16 PM [facility] Calcium 8.5 8.5 - 10.5 mg/dL LAB CHEMISTRY METHOD 08/10/2024 1:16 PM [facility] Blood Venous blood specimen / Unknown Venipuncture / Unknown 08/10/2024 8:44 AM EST 08/10/2024 11:11 AM EST Stephanie Celis MD LAB BLOOD ORDERABLES Fin al Result [facility] [address] [place] [address], * (ABNORMAL) Complete blood count (08/10/2024 8:44 AM EST) WBC 3.9(L) 4.8 - 10.8 K/mcL LAB HEMETOLOGY METHOD 08/10/2024 12:39 PM [facility] RBC 2.60(L) 3.80 - 4.80 M/mcL LAB HEMETOLOGY METHOD 08/10/2024 12:39 PM [facility] Hemoglobin 9.9(L) 11.5 - 16.0 g/dL LAB HEMETOLOGY METHOD 08/10/2024 12:39 PM [facility] Hematocrit 30.5(L) 35.0 - 47.0 % LAB HEMETOLOGY METHOD 08/10/2024 12:39 PM [facility] MCV 116.4(H) 79.0 - 98.0 FL LAB HEMETOLOGY METHOD 08/10/2024 12:39 PM [facility] MCH 37.8(H) 27.0 - 32.0 pcg LAB HEMETOLOGY METHOD 08/10/2024 12:39 PM [facility] MCHC 32.5 32.0 - 37.0 g/dL LAB HEMETOLOGY METHOD 08/10/2024 12:39 PM [facility] RDW 12.3 11.0 - 15.0 % LAB HEMETOLOGY METHOD 08/10/2024 12:39 PM [facility] Platelets 43(L) 130 - 400 K/mcL LAB HEMETOLOGY METHOD 08/10/2024 12:39 PM [facility] Comment:previously verified by slide MPV 9.8 7.0 - 11.0 FL LAB HEMETOLOGY METHOD 08/10/2024 12:39 PM EST [facility] NRBC 0.5 <1.0 % LAB HEMETOLOGY METHOD 08/10/2024 12:39 PM EST [facility] NRBC Absolute 0.02 <0.10 K/mcL LAB HEMETOLOGY METHOD 08/10/2024 12:39 PM EST [facility] Blood Venous blood specimen / Unknown Venipuncture / Unknown 08/10/2024 8:44 AM EST 08/10/2024 11:11 AM EST us Stephanie Celis MD LAB BLOOD ORDERABLES Fin al Result [facility] [address] [place] [address], documented in this encounter Visit Diagnoses Diagnosis Hyperlipidemia, unspecified Hypothyroidism, unspecified documented in this encounter Care Teams Treatment Manager Relationship Specialty Start Date End Date Nina Lindsay NP [address] [place] [phone] PCP - General 10/07/23 documented as of this encounter
--- OUTSIDE RECORDS SUMMARY | 2025-03-23 15:09 | XMS_ITS | Encounter Summary ---
Author Organization [facility] Address [address] [place] [address] Care Team Providers Care Woodenware Assembler Name Role Phone LindsayNina Salma NGUYEN Primary Care Provider [phone] Encounter Details Date Type Department Care Team (Late st Contact Info) Description 08/23/[address] [facility] - Main Lab 299 [facility] [place] [address] Stephanie Celis MD [address] [address] Hypothyroidism, unspecified; Hyperlipidemia, unspecified Social History Tobacco [...] AM EDT Office Visit Orthopedic Surgery - [place] [address] [address] Ulices Crowell, DPSwati [address] [address] documented as of this encounter Procedures Procedure Name Priority Date/Time Associated Diagnosis Comments COMPLETE BLOOD COUNT Routine 08/24/2024 6:57 AM EST Hypothyroidism, unspecified Hyperlipidemia, unspecified BASIC METABOLIC PANEL Routine 08/24/2024 6:57 AM EST Hypothyroidism, unspecified Hyperlipidemia, unspecified documented in this encounter Results * (ABNORMAL) Basic metabolic panel (08/24/2024 6:57 AM EST) Sodium 141 133 - 145 mmol/L LAB CHEMISTRY METHOD 08/24/2024 11:16 AM [facility] Potassium 3.2(L) 3.5 - 5.5 mmol/L LAB CHEMISTRY METHOD 08/24/2024 11:16 AM [facility] Chloride 105 96 - 110 mmol/L LAB CHEMISTRY METHOD 08/24/2024 11:16 AM [facility] CO2 26 21 - 32 mmol/L LAB CHEMISTRY METHOD 08/24/2024 11:16 AM [facility] Anion Gap 10 3 - 11 LAB CHEMISTRY METHOD 08/24/2024 11:16 AM [facility] Glucose 87 70 - 100 mg/dL LAB CHEMISTRY METHOD 08/24/2024 11:16 AM [facility] BUN 15 5 - 25 mg/dL LAB CHEMISTRY METHOD 08/24/2024 11:16 AM [facility] Creatinine 1.38(H) 0.50 - 1.10 mg/dL LAB CHEMISTRY METHOD 08/24/2024 11:16 AM [facility] eGFR 43(L) >=60 mL/min/1. 73m2 LAB CHEMISTRY METHOD 08/24/2024 11:16 AM [facility] Comment:Calculation based on the Chronic Kidney Disease Epidemiology Collaboration (CKD-EPI) equation refit without adjustment for race. BUN/Creatinine Ratio 10.9 LAB CHEMISTRY METHOD 08/24/2024 11:16 AM [facility] Calcium 8.5 8.5 - 10.5 mg/dL LAB CHEMISTRY METHOD 08/24/2024 11:16 AM [facility] Blood Venous blood specimen / Unknown Venipuncture / Unknown 08/24/2024 6:57 AM EST 08/24/2024 10:21 AM EST Stephanie Celis MD LAB BLOOD ORDERABLES Fin al Result [facility] [address] [place] [address], * (ABNORMAL) Complete blood count (08/24/2024 6:57 AM EST) WBC 2.4(L) 4.8 - 10.8 K/mcL LAB HEMETOLOGY METHOD 08/24/2024 10:58 AM [facility] RBC 2.70(L) 3.80 - 4.80 M/mcL LAB HEMETOLOGY METHOD 08/24/2024 10:58 AM [facility] Hemoglobin 10.1(L) 11.5 - 16.0 g/dL LAB HEMETOLOGY METHOD 08/24/2024 10:58 AM [facility] Hematocrit 31.4(L) 35.0 - 47.0 % LAB HEMETOLOGY METHOD 08/24/2024 10:58 AM [facility] MCV 118.0(H) 79.0 - 98.0 FL LAB HEMETOLOGY METHOD 08/24/2024 10:58 AM [facility] MCH 38.0(H) 27.0 - 32.0 pcg LAB HEMETOLOGY METHOD 08/24/2024 10:58 AM [facility] MCHC 32.2 32.0 - 37.0 g/dL LAB HEMETOLOGY METHOD 08/24/2024 10:58 AM [facility] RDW 13.5 11.0 - 15.0 % LAB HEMETOLOGY METHOD 08/24/2024 10:58 AM [facility] Platelets 33(L) 130 - 400 K/mcL LAB HEMETOLOGY METHOD 08/24/2024 10:58 AM [facility] Comment:previously verified by slide MPV 9.3 7.0 - 11.0 FL LAB HEMETOLOGY METHOD 08/24/2024 10:[address] [facility] NRBC 0.0 <1.0 % LAB HEMETOLOGY METHOD 08/24/2024 10:[address] [facility] NRBC Absolute 0.00 <0.10 K/mcL LAB HEMETOLOGY METHOD 08/24/2024 10:[address] [facility] Blood Venous blood specimen / Unknown Venipuncture / Unknown 08/24/2024 6:57 AM EST 08/24/2024 10:21 AM EST us Stephanie Celis MD LAB BLOOD ORDERABLES Fin al Result [facility] [address] [place] [address], documented in this encounter Visit Diagnoses Diagnosis Hypothyroidism, unspecified Hyperlipidemia, unspecified documented in this encounter Care Teams Woodenware Assembler Relationship Specialty Start Date End Date Nina Lindsay NP [address] [place] [phone] PCP - General 10/07/23 documented as of this encounter
--- OUTSIDE RECORDS SUMMARY | 2025-03-23 15:09 | XMS_ITS | Clinical Summary ---
Author Organization [facility] Address 175 [place] [address] Phone Care Team Providers Care Electrical Research Engineer Name Role Phone Nina Lindsay NP Primary Care Provider [phone] Allergies Active Allergy Reactions Criticality Noted Date [...] DEXTRIN ORAL Take by mouth. Activ e Social History Tobacco Use Types Packs/Day Years [...] 04/21/2024 10:04 AM EDT Plan of Treatment Upcoming Encounters Date Type Department Care Team (Late st Contact Info) Description 03/24/2025 10:00 AM EDT Office Visit Orthopedic Surgery - [address] [phone] Ulices Crowell, DPM 175 [facility] 250 [place] [address] Health Maintenance Due Date Last Done Comments [...] Panel) 01/30/2024 Colorectal Cancer Screening: Colonoscopy 01/30/2024 Medicare Annual Wellness Visit 01/30/2024 Social Influencers of Health Screening 01/30/2024 Depression Screening 07/08/2024 COVID-19 Vaccine ( season) 2025 04/28/2021, 08/26/2020, 08/05/2020 Influenza Vaccine (#1) 2025 3, 03/30/2022, 05/04/2021, Additional history exists Hepatitis C [...] Procedure Name Priority Date/Time Associated Diagnosis Comments HEPATITIS C SCREENING Routine 05/20/1998 from Last 3 Months or Most Recently Relevant to Health Maintenance Results * Hepatitis C Screening (05/20/1998) Hepatitis C Screening Abstracted us Historical Provider MD HEALTH MAINTENANCE Final Result from Last 3 Months or Most Recently Relevant to Health Maintenance Insurance MEDICARE [place]ICAID - [place] Care Teams Electrical Research Engineer Relationship Specialty Start Date End Date Nina Lindsay NP [address] [place] [phone] PCP - General 10/07/23
--- OUTSIDE RECORDS SUMMARY | 2025-03-23 15:09 | XMS_ITS | Encounter Summary ---
Author Organization [facility] Address [address] [place] [address] Care Team Providers Care Otr Truck Driver Name Role Phone LindsayNina Salma NGUYEN Primary Care Provider Encounter Details Date Type Department Care Team (Late st Contact Info) Description 08/15/2024 Lab Requisition [facility] - Main Lab 299 [facility] [place] [address] Stephanie Celis MD [address] [address] Hyperlipidemia, unspecified; Hypothyroidism, unspecified Social History Tobacco [...] AM EDT Office Visit Orthopedic Surgery - [place] [address] [address] Ulices Crowell, DPSwati [address] [address] documented as of this encounter Procedures Procedure Name Priority Date/Time Associated Diagnosis Comments COMPLETE BLOOD COUNT Routine 08/17/2024 5:27 AM EST Hyperlipidemia, unspecified Hypothyroidism, unspecified BASIC METABOLIC PANEL Routine 08/17/2024 5:27 AM EST Hyperlipidemia, unspecified Hypothyroidism, unspecified documented in this encounter Results * (ABNORMAL) Basic metabolic panel (08/17/2024 5:27 AM EST) Sodium 139 133 - 145 mmol/L LAB CHEMISTRY METHOD 08/17/2024 11:29 AM [facility] Potassium 3.8 3.5 - 5.5 mmol/L LAB CHEMISTRY METHOD 08/17/2024 11:29 AM [facility] Chloride 103 96 - 110 mmol/L LAB CHEMISTRY METHOD 08/17/2024 11:29 AM [facility] CO2 30 21 - 32 mmol/L LAB CHEMISTRY METHOD 08/17/2024 11:29 AM [facility] Anion Gap 6 3 - 11 LAB CHEMISTRY METHOD 08/17/2024 11:29 AM [facility] Glucose 98 70 - 100 mg/dL LAB CHEMISTRY METHOD 08/17/2024 11:29 AM [facility] BUN 18 5 - 25 mg/dL LAB CHEMISTRY METHOD 08/17/2024 11:29 AM [facility] Creatinine 1.57(H) 0.50 - 1.10 mg/dL LAB CHEMISTRY METHOD 08/17/2024 11:29 AM [facility] eGFR 37(L) >=60 mL/min/1. 73m2 LAB CHEMISTRY METHOD 08/17/2024 11:29 AM [facility] Comment:Calculation based on the Chronic Kidney Disease Epidemiology Collaboration (CKD-EPI) equation refit without adjustment for race. BUN/Creatinine Ratio 11.5 LAB CHEMISTRY METHOD 08/17/2024 11:29 AM [facility] Calcium 8.6 8.5 - 10.5 mg/dL LAB CHEMISTRY METHOD 08/17/2024 11:29 AM [facility] Blood Venous blood specimen / Unknown Venipuncture / Unknown 08/17/2024 5:27 AM EST 08/17/2024 10:16 AM EST Stephanie Celis MD LAB BLOOD ORDERABLES Fin al Result [facility] [address] [place] [address], * (ABNORMAL) Complete blood count (08/17/2024 5:27 AM EST) WBC 2.6(L) 4.8 - 10.8 K/mcL LAB HEMETOLOGY METHOD 08/17/2024 10:38 AM [facility] RBC 2.70(L) 3.80 - 4.80 M/mcL LAB HEMETOLOGY METHOD 08/17/2024 10:38 AM [facility] Hemoglobin 10.1(L) 11.5 - 16.0 g/dL LAB HEMETOLOGY METHOD 08/17/2024 10:38 AM [facility] Hematocrit 31.7(L) 35.0 - 47.0 % LAB HEMETOLOGY METHOD 08/17/2024 10:38 AM [facility] MCV 118.7(H) 79.0 - 98.0 FL LAB HEMETOLOGY METHOD 08/17/2024 10:38 AM [facility] MCH 37.8(H) 27.0 - 32.0 pcg LAB HEMETOLOGY METHOD 08/17/2024 10:38 AM [facility] MCHC 31.9(L) 32.0 - 37.0 g/dL LAB HEMETOLOGY METHOD 08/17/2024 10:38 AM [facility] RDW 13.2 11.0 - 15.0 % LAB HEMETOLOGY METHOD 08/17/2024 10:38 AM [facility] Platelets 50(L) 130 - 400 K/mcL LAB HEMETOLOGY METHOD 08/17/2024 10:38 AM [facility] Comment:previously verified by slide MPV 9.6 7.0 - 11.0 FL LAB HEMETOLOGY METHOD 08/17/2024 10:38 AM EST [facility] NRBC 0.0 <1.0 % LAB HEMETOLOGY METHOD 08/17/2024 10:38 AM EST [facility] NRBC Absolute 0.00 <0.10 K/mcL LAB HEMETOLOGY METHOD 08/17/2024 10:38 AM EST [facility] Blood Venous blood specimen / Unknown Venipuncture / Unknown 08/17/2024 5:27 AM EST 08/17/2024 10:16 AM EST us Stephanie Celis MD LAB BLOOD ORDERABLES Fin al Result [facility] [address] [place] [address], documented in this encounter Visit Diagnoses Diagnosis Hyperlipidemia, unspecified Hypothyroidism, unspecified documented in this encounter Care Teams Otr Truck Driver Relationship Specialty Start Date End Date Nnia Lindsay NP [address] [place] [phone] PCP - General 10/07/23 documented as of this encounter
--- OUTSIDE RECORDS SUMMARY | 2025-03-23 15:09 | XMS_ITS | Encounter Summary ---
Author Organization [facility] Address [address] [place] [address] Care Team Providers Care Cafeteria Supervisor Name Role Phone LindsayNina Salma NGUYEN Primary Care Provider [phone] Encounter Details Date Type Department Care Team (Late st Contact Info) Description 07/31/2024 Lab Requisition [facility] - Main Lab 299 [facility] [place] [address] Stephanie Celis MD [address] [address] Hyperlipidemia, unspecified; Hypothyroidism, unspecified Social History Tobacco [...] AM EDT Office Visit Orthopedic Surgery - [place] [address] [phone] Ulices Crowell, TRACY [address] [address] documented as of this encounter Procedures Procedure Name Priority Date/Time Associated Diagnosis Comments COMPLETE BLOOD COUNT Routine 08/03/2024 7:57 AM EST Hyperlipidemia, unspecified Hypothyroidism, unspecified BASIC METABOLIC PANEL Routine 08/03/2024 7:57 AM EST Hyperlipidemia, unspecified Hypothyroidism, unspecified documented in this encounter Results * (ABNORMAL) Basic metabolic panel (08/03/2024 7:57 AM EST) Sodium 138 133 - 145 mmol/L LAB CHEMISTRY METHOD 08/03/2024 12:20 PM [facility] Potassium 4.3 3.5 - 5.5 mmol/L LAB CHEMISTRY METHOD 08/03/2024 12:20 PM [facility] Chloride 104 96 - 110 mmol/L LAB CHEMISTRY METHOD 08/03/2024 12:20 PM [facility] CO2 28 21 - 32 mmol/L LAB CHEMISTRY METHOD 08/03/2024 12:20 PM [facility] Anion Gap 6 3 - 11 LAB CHEMISTRY METHOD 08/03/2024 12:20 PM [facility] Glucose 107(H) 70 - 100 mg/dL LAB CHEMISTRY METHOD 08/03/2024 12:20 PM [facility] BUN 14 5 - 25 mg/dL LAB CHEMISTRY METHOD 08/03/2024 12:20 PM [facility] Creatinine 1.23(H) 0.50 - 1.10 mg/dL LAB CHEMISTRY METHOD 08/03/2024 12:20 PM [facility] eGFR 50(L) >=60 mL/min/1. 73m2 LAB CHEMISTRY METHOD 08/03/2024 12:20 PM [facility] Comment:Calculation based on the Chronic Kidney Disease Epidemiology Collaboration (CKD-EPI) equation refit without adjustment for race. BUN/Creatinine Ratio 11.4 LAB CHEMISTRY METHOD 08/03/2024 12:20 PM [facility] Calcium 8.9 8.5 - 10.5 mg/dL LAB CHEMISTRY METHOD 08/03/2024 12:20 PM [facility] Blood Venous blood specimen / Unknown Venipuncture / Unknown 08/03/2024 7:57 AM EST 08/03/2024 11:09 AM EST Stephanie Celis MD LAB BLOOD ORDERABLES Fin al Result [facility] [address] [place] [address], * (ABNORMAL) Complete blood count (08/03/2024 7:57 AM EST) WBC 2.5(L) 4.8 - 10.8 K/mcL LAB HEMETOLOGY METHOD 08/03/2024 1:03 PM [facility] RBC 2.60(L) 3.80 - 4.80 M/mcL LAB HEMETOLOGY METHOD 08/03/2024 1:03 PM [facility] Hemoglobin 10.0(L) 11.5 - 16.0 g/dL LAB HEMETOLOGY METHOD 08/03/2024 1:03 PM [facility] Hematocrit 30.5(L) 35.0 - 47.0 % LAB HEMETOLOGY METHOD 08/03/2024 1:03 PM [facility] MCV 117.8(H) 79.0 - 98.0 FL LAB HEMETOLOGY METHOD 08/03/2024 1:03 PM [facility] MCH 38.6(H) 27.0 - 32.0 pcg LAB HEMETOLOGY METHOD 08/03/2024 1:03 PM [facility] MCHC 32.8 32.0 - 37.0 g/dL LAB HEMETOLOGY METHOD 08/03/2024 1:03 PM [facility] RDW 12.2 11.0 - 15.0 % LAB HEMETOLOGY METHOD 08/03/2024 1:03 PM [facility] Platelets 78(L) 130 - 400 K/mcL LAB HEMETOLOGY METHOD 08/03/2024 1:03 PM [facility] Comment:reviewed by slide MPV 9.6 7.0 - 11.0 FL LAB HEMETOLOGY METHOD 08/03/2024 1:03 PM EST [facility] NRBC 0.0 <1.0 % LAB HEMETOLOGY METHOD 08/03/2024 1:03 PM EST [facility] NRBC Absolute 0.00 <0.10 K/mcL LAB HEMETOLOGY METHOD 08/03/2024 1:03 PM EST [facility] Blood Venous blood specimen / Unknown Venipuncture / Unknown 08/03/2024 7:57 AM EST 08/03/2024 11:09 AM EST us Stephanie Celis MD LAB BLOOD ORDERABLES Fin al Result [facility] [address] [place] [address], documented in this encounter Visit Diagnoses Diagnosis Hyperlipidemia, unspecified Hypothyroidism, unspecified documented in this encounter Care Teams Cafeteria Supervisor Relationship Specialty Start Date End Date Nina Lindsay NP [address] [phone] PCP - General 10/07/23 documented as of this encounter
--- OUTSIDE RECORDS SUMMARY | 2025-03-23 15:09 | XMS_ITS | Encounter Summary ---
Author Organization [facility] Address [address] [place] [address] Care Team Providers Care Animal Nutrition Teacher Name Role Phone Neftali Nina Marsh NP Primary Care Provider [phone] Encounter Details Date Type Department Care Team (Late Contact Info) Description 08/13/2024 Lab Requisition [facility] 299 [facility] [place] [address] Stephanie Celis MD [address] [address] Human immunodeficiency virus (HIV) disease (CMS/HCC V24, [...] AM EDT Office Visit Orthopedic Surgery - [place] [address] [phone] Ulices Crowell, TRACY [address] [address] documented as of this encounter Procedures Procedure Name Priority Date/Time Associated Diagnosis Comments COMPLETE BLOOD COUNT Routine 08/13/2024 7:22 AM EST Human immunodeficiency virus (HIV) disease (CMS/[facility]) Noninfective gastroenteritis and colitis, unspecified Altered mental status, unspecified Vitamin D deficiency, unspecified documented in this encounter Results * (ABNORMAL) Complete blood count (08/13/2024 7:22 AM EST) WBC 2.6(L) 4.8 - 10.8 K/mcL LAB HEMETOLOGY METHOD 08/13/2024 10:51 AM [facility] RBC 2.50(L) 3.80 - 4.80 M/mcL LAB HEMETOLOGY METHOD 08/13/2024 10:51 AM [facility] Hemoglobin 9.6(L) 11.5 - 16.0 g/dL LAB HEMETOLOGY METHOD 08/13/2024 10:51 AM [facility] Hematocrit 29.0(L) 35.0 - 47.0 % LAB HEMETOLOGY METHOD 08/13/2024 10:51 AM [facility] MCV 115.5(H) 79.0 - 98.0 FL LAB HEMETOLOGY METHOD 08/13/2024 10:51 AM [facility] MCH 38.2(H) 27.0 - 32.0 pcg LAB HEMETOLOGY METHOD 08/13/2024 10:51 AM [facility] MCHC 33.1 32.0 - 37.0 g/dL LAB HEMETOLOGY METHOD 08/13/2024 10:51 AM [facility] RDW 12.2 11.0 - 15.0 % LAB HEMETOLOGY METHOD 08/13/2024 10:51 AM [facility] Platelets 38(L) 130 - 400 K/mcL LAB HEMETOLOGY METHOD 08/13/2024 10:51 AM [facility] Comment:previously verified by slide MPV 9.4 7.0 - 11.0 FL LAB HEMETOLOGY METHOD 08/13/2024 10:51 AM [facility] NRBC 0.0 <1.0 % LAB HEMETOLOGY METHOD 08/13/2024 10:51 AM EST [facility] NRBC Absolute 0.00 <0.10 K/mcL LAB HEMETOLOGY METHOD 08/13/2024 10:51 AM EST [facility] Blood Venous blood specimen / Unknown Venipuncture / Unknown 08/13/2024 7:22 AM EST 08/13/2024 9:57 AM EST us Stephanie Celis MD LAB BLOOD ORDERABLES Fin al Result [facility] [address] [place] [address], documented in this encounter Visit Diagnoses Diagnosis Human immunodeficiency virus (HIV) disease (CMS/HCC V24, CMS/[facility] V28) Human immunodeficiency virus [HIV] disease Noninfective gastroenteritis and colitis, unspecified Altered mental status, unspecified Vitamin D deficiency, unspecified documented in this encounter Care Teams Animal Nutrition Teacher Relationship Specialty Start Date End Date Nina Lindsay NP [address] [place] [phone] PCP - General 10/07/23 documented as of this encounter
--- OUTSIDE RECORDS SUMMARY | 2025-03-23 15:09 | XMS_ITS | Encounter Summary ---
Author Organization [facility] Address [address] [place] [phone] Care Team Providers Care Drum Drier Name Role Phone Neftali Nina Marsh NP Primary Care Provider Encounter Details Date Type Department Care Team (Late st Contact Info) Description 08/25/2024 Lab Requisition [facility] - Main Lab 299 [facility] [place] [address] Stephanie Celis MD [address] [address] Encounter for therapeutic drug level monitoring Social [...] AM EDT Office Visit Orthopedic Surgery - [place] 250 175 [facility] 250 [place] [phone] Ulices Crowell DPM [address] [address] documented as of this encounter Procedures Procedure Name Priority Date/Time Associated Diagnosis Comments VALPROIC ACID LEVEL, TOTAL Routine 08/25/2024 7:32 AM EST Encounter for therapeutic drug level monitoring documented in this encounter Results * Valproic acid level, total (08/25/2024 7:32 AM EST) Valproic Acid, Total 99 50 - 100 mcg/mL LAB CHEMISTRY METHOD 08/25/2024 12:36 PM EST [facility] Blood Venous blood specimen / Unknown Venipuncture / Unknown 08/25/2024 7:32 AM EST 08/25/2024 9:16 AM EST us Stephanie Celis MD LAB BLOOD ORDERABLES Fin al Result [facility] ([facility] 299 [place] [address], documented in this encounter Visit Diagnoses Diagnosis Encounter for therapeutic drug level monitoring documented in this encounter Care Teams Drum Drier Relationship Specialty Start Date End Date Nina Lindsay NP [address] [place] [phone] PCP - General 10/07/23 documented as of this encounter
--- OUTSIDE RECORDS SUMMARY | 2025-03-23 15:09 | XMS_ITS | Encounter Summary ---
Author Organization [facility] Address [address] [place] [address] Care Team Providers Care Disposal Man Name Role Phone LindsayNina Salma NGUYEN Primary Care Provider [phone] Encounter Details Date Type Department Care Team (Late st Contact Info) Description 08/11/2024 Lab Requisition [facility] - Main Lab 299 [facility] [place] [address] Stephanie Celis MD [address] [address] Altered mental status, unspecified Social History Tobacco [...] AM EDT Office Visit Orthopedic Surgery - [place] 250 175 [facility] 250 [place] [address] Ulices Crowell DPM [address] [address] documented as of this encounter Procedures Procedure [...] reflex microscopic (08/10/2024 2:00 PM EST) Specific [place] Urine 1.019 1.003 - 1.030 LAB URINALYSIS - AUTOMATED METHOD 08/11/2024 11:48 AM [facility] pH, Urine 6.0 5.0 - 8.0 pH LAB URINALYSIS - AUTOMATED METHOD 08/11/2024 11:48 AM [facility] Leukocytes, Urine Large(A) Negative LAB URINALYSIS - AUTOMATED METHOD 08/11/2024 11:48 AM [facility] Nitrite, Urine Negative Negative LAB URINALYSIS - AUTOMATED METHOD 08/11/2024 11:48 AM [facility] Protein, Urine 100(A) <=Trace mg/dL LAB URINALYSIS - AUTOMATED METHOD 08/11/2024 11:48 AM [facility] Glucose, Urine Negative Negative mg/dL LAB URINALYSIS - AUTOMATED METHOD 08/11/2024 11:48 AM [facility] Ketones, Urine Trace(A) Negative mg/dL LAB URINALYSIS - AUTOMATED METHOD 08/11/2024 11:48 AM [facility] Urobilinogen , Urine 1.0 0.2 - 1.0 mg/dL LAB URINALYSIS - AUTOMATED METHOD 08/11/2024 11:48 AM [facility] Bilirubin, Urine Small(A) Negative LAB URINALYSIS - AUTOMATED METHOD 08/11/2024 11:48 AM [facility] Blood, Urine Moderate(A) Negative LAB URINALYSIS - AUTOMATED METHOD 08/11/2024 11:48 AM [facility] RBC, Urine 16.3(H) 0 - 4 /HPF LAB URINALYSIS - AUTOMATED METHOD 08/11/2024 11:48 AM [facility] WBC, Urine 1,391.8(H) 0 - 4 /HPF LAB URINALYSIS - AUTOMATED METHOD 08/11/2024 11:48 AM EST [facility] Squamous Epithelial, Urine 12 0 - 60 /LPF LAB URINALYSIS - AUTOMATED METHOD 08/11/2024 11:48 AM [facility] Bacteria, Urine Many(A) Negative /HPF LAB URINALYSIS - AUTOMATED METHOD 08/11/2024 11:48 AM [facility] Hyaline Casts, Urine 0.0 0 - 3 /LPF LAB URINALYSIS - AUTOMATED METHOD 08/11/2024 11:48 AM [facility] Urine Urine specimen obtained by clean catch procedure / Unknown Non-blood Collection / Unknown 08/10/2024 2:00 PM EST 08/11/2024 10:50 AM EST Stephanie Celis MD LAB URINE ORDERABLES Fin al Result [facility] 299 [place] [address], * (ABNORMAL) Culture urine (08/10/2024 2:00 PM EST) Culture, Urine >100,000 CFU/mL Klebsiella pneumoniae ssp pneumoniae(A) SAVANA 08/13/2024 10:17 AM EST [facility] Comment: This is an edited [...] us Stephanie Celis MD LAB MICROBIOLOGY - [facility] AL ORDERABLES Final Result [facility] ([facility] 299 [place] [address], documented in this encounter Visit Diagnoses Diagnosis Altered mental status, unspecified documented in this encounter Care Teams Disposal Man Relationship Specialty Start Date End Date Nina Lindsay NP [address] [place] [phone] PCP - General 10/07/23 documented as of this encounter
--- OUTSIDE RECORDS SUMMARY | 2025-03-23 15:09 | XMS_ITS | Encounter Summary ---
Author Organization [facility] Address [address] [place] [address] Care Team Providers Care Sports Marketing Specialist Name Role Phone Neftali Nina Marsh NP Primary Care Provider [phone] Encounter Details Date Type Department Care Team (Late st Contact Info) Description 09/16/2024 Lab Requisition [facility] 299 [facility] [place] [address] Stephanie Celis MD [address] [address] Hyperlipidemia, unspecified; Unspecified cirrhosis of liver (CMS/HCC [...] AM EDT Office Visit Orthopedic Surgery - [place] [address] [phone] Ulices Crowell, TRACY [address] [address] documented as of this encounter Procedures Procedure [...] mmol/L LAB CHEMISTRY METHOD 09/16/2024 11:36 AM [facility] Potassium 3.8 3.5 - 5.5 mmol/L LAB CHEMISTRY METHOD 09/16/2024 11:36 AM [facility] Chloride 104 96 - 110 mmol/L LAB CHEMISTRY METHOD 09/16/2024 11:36 AM [facility] CO2 26 21 - 32 mmol/L LAB CHEMISTRY METHOD 09/16/2024 11:36 AM [facility] Anion Gap 9 3 - 11 LAB CHEMISTRY METHOD 09/16/2024 11:36 AM [facility] Glucose 102(H) 70 - 100 mg/dL LAB CHEMISTRY METHOD 09/16/2024 11:36 AM [facility] BUN 13 5 - 25 mg/dL LAB CHEMISTRY METHOD 09/16/2024 11:36 AM [facility] Creatinine 1.25(H) 0.50 - 1.10 mg/dL LAB CHEMISTRY METHOD 09/16/2024 11:36 AM [facility] eGFR 49(L) >=60 mL/min/1. 73m2 LAB CHEMISTRY METHOD 09/16/2024 11:36 AM [facility] Comment:Calculation based on the Chronic Kidney Disease Epidemiology Collaboration (CKD-EPI) equation refit without adjustment for race. BUN/Creatinine Ratio 10.4 LAB CHEMISTRY METHOD 09/16/2024 11:36 AM [facility] Calcium 8.6 8.5 - 10.5 mg/dL LAB CHEMISTRY METHOD 09/16/2024 11:[address] [facility] Blood Venous blood specimen / Unknown Venipuncture / Unknown 09/16/2024 6:47 AM EDT 09/16/2024 10:10 AM EDT us Stephanie Celis MD LAB BLOOD ORDERABLES Fin al Result [facility] 299 [place] [address], [place] [phone] * (ABNORMAL) Complete blood count (09/16/2024 6:47 AM EDT) WBC 2.1(L) 4.8 - 10.8 K/mcL LAB HEMETOLOGY METHOD 09/16/2024 11:08 AM [facility] RBC 2.70(L) 3.80 - 4.80 M/mcL LAB HEMETOLOGY METHOD 09/16/2024 11:08 AM [facility] Hemoglobin 10.1(L) 11.5 - 16.0 g/dL LAB HEMETOLOGY METHOD 09/16/2024 11:08 AM [facility] Hematocrit 31.0(L) 35.0 - 47.0 % LAB HEMETOLOGY METHOD 09/16/2024 11:08 AM [facility] MCV 116.1(H) 79.0 - 98.0 FL LAB HEMETOLOGY METHOD 09/16/2024 11:08 AM [facility] MCH 37.8(H) 27.0 - 32.0 pcg LAB HEMETOLOGY METHOD 09/16/2024 11:08 AM [facility] MCHC 32.6 32.0 - 37.0 g/dL LAB HEMETOLOGY METHOD 09/16/2024 11:08 AM [facility] RDW 13.3 11.0 - 15.0 % LAB HEMETOLOGY METHOD 09/16/2024 11:[address] [facility] Platelets 68(L) 130 - 400 K/mcL LAB HEMETOLOGY METHOD 09/16/2024 11:[address] [facility] Comment:previously verified by slide MPV 9.1 7.0 - 11.0 FL LAB HEMETOLOGY METHOD 09/16/2024 11:[address] [facility] NRBC 1.0(H) <1.0 % LAB HEMETOLOGY METHOD 09/16/2024 11:[address] [facility] NRBC Absolute 0.02 <0.10 K/mcL LAB HEMETOLOGY METHOD 09/16/2024 11:[address] [facility] Blood Venous blood specimen / Unknown Venipuncture / Unknown 09/16/2024 6:47 AM EDT 09/16/2024 10:10 AM EDT us Stephanie Celis MD LAB BLOOD ORDERABLES Fin al Result [facility] 299 [place] [address], documented in this encounter Visit Diagnoses Diagnosis Hyperlipidemia, unspecified Unspecified cirrhosis of liver (CMS/HCC V24, CMS/HCC V28) Chronic kidney disease, stage 3 unspecified (CMS/HCC V24, CMS/HCC V28) documented in this encounter Care Teams Sports Marketing Specialist Relationship Specialty Start Date End Date Nina Lindsay NP [address] [place] [phone] PCP - General 10/07/23 documented as of this encounter
--- OUTSIDE RECORDS SUMMARY | 2025-03-23 15:09 | XMS_ITS | Encounter Summary ---
Author Organization [facility] Address [address] [place] [address] Care Team Providers Care Inspector Air Carrier Name Role Phone Neftali Nina Marsh NP Primary Care Provider [phone] Encounter Details Date Type Department Care Team (Late st Contact Info) Description 08/20/[address] [facility] Lab 299 [facility] [place] [address] Stephanie Celis MD [address] [address] Acute kidney failure, unspecified (CMS/HCC V24); Chronic [...] AM EDT Office Visit Orthopedic Surgery - [place] [address] [phone] Ulices Crowell DPM [address] [address] documented as of this encounter Procedures Procedure [...] LAB CHEMISTRY METHOD 08/20/2024 9:05 AM EST [facility] Blood Venous blood specimen / Unknown Venipuncture / Unknown 08/20/2024 7:52 AM EST 08/20/2024 8:36 AM EST Stephanie Celis MD LAB BLOOD ORDERABLES Fin al Result [facility] 299 [place] [address], * (ABNORMAL) Comprehensive metabolic panel (08/20/2024 7:52 AM EST) Pathologist [facility] Sodium 139 133 - 145 mmol/L LAB CHEMISTRY METHOD 08/20/2024 9:44 AM EST [facility] Potassium 4.2 3.5 - 5.5 mmol/L LAB CHEMISTRY METHOD 08/20/2024 9:44 AM EST [facility] Chloride 104 96 - 110 mmol/L LAB CHEMISTRY METHOD 08/20/2024 9:44 AM EST [facility] CO2 31 21 - 32 mmol/L LAB CHEMISTRY METHOD 08/20/2024 9:44 AM [facility] Anion Gap 4 3 - 11 LAB CHEMISTRY METHOD 08/20/2024 9:44 AM [facility] Glucose 116(H) 70 - 100 mg/dL LAB CHEMISTRY METHOD 08/20/2024 9:44 AM [facility] BUN 14 5 - 25 mg/dL LAB CHEMISTRY METHOD 08/20/2024 9:44 AM [facility] Creatinine 1.54(H) 0.50 - 1.10 mg/dL LAB CHEMISTRY METHOD 08/20/2024 9:44 AM [facility] eGFR 38(L) >=60 mL/min/1. 73m2 LAB CHEMISTRY METHOD 08/20/2024 9:44 AM [facility] Comment:Calculation based on the Chronic Kidney Disease Epidemiology Collaboration (CKD-EPI) equation refit without adjustment for race. BUN/Creatinine Ratio 9.1 LAB CHEMISTRY METHOD 08/20/2024 9:44 AM [facility] Calcium 8.5 8.5 - 10.5 mg/dL LAB CHEMISTRY METHOD 08/20/2024 9:44 AM [facility] AST (SGOT) 22 10 - 42 unit/L LAB CHEMISTRY METHOD 08/20/2024 9:44 AM [facility] ALT (SGPT) 11 10 - 60 unit/L LAB CHEMISTRY METHOD 08/20/2024 9:44 AM [facility] Alkaline Phosphatase 38(L) 42 - 121 unit/L LAB CHEMISTRY METHOD 08/20/2024 9:44 AM [facility] Total Protein 5.9(L) 6.0 - 8.0 g/dL LAB CHEMISTRY METHOD 08/20/2024 9:44 AM [facility] Albumin 2.6(L) 3.2 - 5.0 g/dL LAB CHEMISTRY METHOD 08/20/2024 9:44 AM [facility] Total Bilirubin 0.6 0.0 - 1.4 mg/dL LAB CHEMISTRY METHOD 08/20/2024 9:44 AM [facility] Blood Venous blood specimen / Unknown Venipuncture / Unknown 08/20/2024 7:52 AM EST 08/20/2024 8:36 AM EST us Stephanie Celis MD LAB BLOOD ORDERABLES Fin al Result [facility] 299 [place] [address], * (ABNORMAL) Complete blood count (08/20/2024 7:52 AM EST) WBC 2.6(L) 4.8 - 10.8 K/mcL LAB HEMETOLOGY METHOD 08/20/2024 9:31 AM [facility] RBC 2.70(L) 3.80 - 4.80 M/mcL LAB HEMETOLOGY METHOD 08/20/2024 9:31 AM [facility] Hemoglobin 10.2(L) 11.5 - 16.0 g/dL LAB HEMETOLOGY METHOD 08/20/2024 9:31 AM [facility] Hematocrit 31.1(L) 35.0 - 47.0 % LAB HEMETOLOGY METHOD 08/20/2024 9:31 AM [facility] MCV 116.0(H) 79.0 - 98.0 FL LAB HEMETOLOGY METHOD 08/20/2024 9:31 AM [facility] MCH 38.1(H) 27.0 - 32.0 pcg LAB HEMETOLOGY METHOD 08/20/2024 9:31 AM [facility] MCHC 32.8 32.0 - 37.0 g/dL LAB HEMETOLOGY METHOD 08/20/2024 9:31 AM [facility] RDW 13.2 11.0 - 15.0 % LAB HEMETOLOGY METHOD 08/20/2024 9:31 AM EST [facility] Platelets 46(L) 130 - 400 K/mcL LAB HEMETOLOGY METHOD 08/20/2024 9:31 AM EST [facility] Comment:previously verified by slide MPV 9.4 7.0 - 11.0 FL LAB HEMETOLOGY METHOD 08/20/2024 9:31 AM EST [facility] NRBC 0.0 <1.0 % LAB HEMETOLOGY METHOD 08/20/2024 9:31 AM EST [facility] NRBC Absolute 0.00 <0.10 K/mcL LAB HEMETOLOGY METHOD 08/20/2024 9:31 AM EST [facility] Blood Venous blood specimen / Unknown Venipuncture / Unknown 08/20/2024 7:52 AM EST 08/20/2024 8:36 AM EST us Stephanie Celis MD LAB BLOOD ORDERABLES Fin al Result [facility] 299 [place] [address], documented in this encounter Visit Diagnoses Diagnosis Acute kidney failure, unspecified (CMS/HCC V24) Acute kidney failure, unspecified Chronic kidney disease, stage 3 unspecified (CMS/HCC V24, CMS/HCC V28) Human immunodeficiency virus (HIV) disease (CMS/HCC V24, CMS/HCC V28) Human immunodeficiency virus [HIV] disease documented in this encounter Care Teams Inspector Air Carrier Relationship Specialty Start Date End Date Nina Lindsay NP [address] [place] [phone] PCP - General 10/07/23 documented as of this encounter
--- OUTSIDE RECORDS SUMMARY | 2025-03-23 15:09 | XMS_ITS | Encounter Summary ---
Author Organization [facility] Address [address] [place] [address] Care Team Providers Care Stiff Neck Loader Name Role Phone Neftali Nina Marsh NP Primary Care Provider [phone] Encounter Details Date Type Department Care Team (Late st Contact Info) Description 09/29/2024 Lab Requisition [facility] Lab 299 [facility] [place] [address] Stephanie Celis MD [address] [address] Hyperlipidemia, unspecified; Unspecified cirrhosis of liver (CMS/HCC [...] AM EDT Office Visit Orthopedic Surgery - [place] [address] [phone] Ulices Crowell, TRACY [address] [address] documented as of this encounter Procedures Procedure Name Priority Date/Time Associated Diagnosis Comments COMPLETE BLOOD COUNT Routine 09/29/2024 8:28 AM EDT Hyperlipidemia, unspecified Unspecified cirrhosis of liver (CMS/HCC) Chronic kidney disease, stage 3 unspecified (CMS/HCC) documented in this encounter Results * (ABNORMAL) Complete blood count (09/29/2024 8:28 AM EDT) [facility] Signature WBC 4.0(L) 4.8 - 10.8 K/mcL LAB HEMETOLOGY METHOD 09/29/2024 10:51 AM [facility] RBC 3.50(L) 3.80 - 4.80 M/mcL LAB HEMETOLOGY METHOD 09/29/2024 10:51 AM EDT [facility] Hemoglobin 12.9 11.5 - 16.0 g/dL LAB HEMETOLOGY METHOD 09/29/2024 10:51 AM [facility] Hematocrit 39.1 35.0 - 47.0 % LAB HEMETOLOGY METHOD 09/29/2024 10:51 AM [facility] MCV 111.1(H) 79.0 - 98.0 FL LAB HEMETOLOGY METHOD 09/29/2024 10:51 AM [facility] MCH 36.6(H) 27.0 - 32.0 pcg LAB HEMETOLOGY METHOD 09/29/2024 10:51 AM [facility] MCHC 33.0 32.0 - 37.0 g/dL LAB HEMETOLOGY METHOD 09/29/2024 10:51 AM [facility] RDW 13.1 11.0 - 15.0 % LAB HEMETOLOGY METHOD 09/29/2024 10:51 AM [facility] Platelets 101(L) 130 - 400 K/mcL LAB HEMETOLOGY METHOD 09/29/2024 10:51 AM [facility] MPV 9.5 7.0 - 11.0 FL LAB HEMETOLOGY METHOD 09/29/2024 10:51 AM [facility] NRBC 0.0 <1.0 % LAB HEMETOLOGY METHOD 09/29/2024 10:51 AM EDT [facility] NRBC Absolute 0.00 <0.10 K/mcL LAB HEMETOLOGY METHOD 09/29/2024 10:51 AM EDT [facility] Blood Venous blood specimen / Unknown Venipuncture / Unknown 09/29/2024 8:28 AM EDT 09/29/2024 10:07 AM EDT us Stephanie Celis MD LAB BLOOD ORDERABLES Fin al Result [facility] [address] [place] [address], documented in this encounter Visit Diagnoses Diagnosis Hyperlipidemia, unspecified Unspecified cirrhosis of liver (CMS/HCC V24, CMS/HCC V28) Chronic kidney disease, stage 3 unspecified (CMS/HCC V24, CMS/HCC V28) documented in this encounter Care Teams Stiff Neck Loader Relationship Specialty Start Date End Date Nina Lindsay NP [address] [place] [phone] PCP - General 10/07/23 documented as of this encounter
--- OUTSIDE RECORDS SUMMARY | 2025-03-23 15:09 | XMS_ITS | Encounter Summary ---
Author Organization [facility] Address [address] [place] [address] Care Team Providers Care Ob/Gyn Name Role Phone NeftaliNina Salma NGUYEN Primary Care Provider [phone] Encounter Details Date Type Department Care Team (Late st Contact Info) Description 08/26/2024 Lab Requisition [facility] - Main Lab 299 [place] [address] Stephanie Celis MD [address] [address] Anemia, unspecified Social History Tobacco Use Types [...] AM EDT Office Visit Orthopedic Surgery - [place] [address] [facility] 250 [place] [phone] Ulices Crowell, TRACY [address] [address] documented as of this encounter Procedures Procedure Name Priority Date/Time Associated Diagnosis Comments COMPLETE BLOOD COUNT Routine 08/27/2024 7:46 AM EST Anemia, unspecified documented in this encounter Results * (ABNORMAL) Complete blood count (08/27/2024 7:46 AM EST) WBC 1.9(LL) 4.8 - 10.8 K/[facility] LAB HEMETOLOGY METHOD 08/27/2024 12:41 PM [facility] RBC 2.60(L) 3.80 - 4.80 M/mcL LAB HEMETOLOGY METHOD 08/27/2024 12:41 PM [facility] Hemoglobin 9.8(L) 11.5 - 16.0 g/dL LAB HEMETOLOGY METHOD 08/27/2024 12:41 PM [facility] Hematocrit 30.2(L) 35.0 - 47.0 % LAB HEMETOLOGY METHOD 08/27/2024 12:41 PM [facility] MCV 115.7(H) 79.0 - 98.0 FL LAB HEMETOLOGY METHOD 08/27/2024 12:41 PM [facility] MCH 37.5(H) 27.0 - 32.0 pcg LAB HEMETOLOGY METHOD 08/27/2024 12:41 PM [facility] MCHC 32.5 32.0 - 37.0 g/dL LAB HEMETOLOGY METHOD 08/27/2024 12:41 PM [facility] RDW 13.2 11.0 - 15.0 % LAB HEMETOLOGY METHOD 08/27/2024 12:41 PM [facility] Platelets 30(L) 130 - 400 K/mcL LAB HEMETOLOGY METHOD 08/27/2024 12:41 PM [facility] Comment:previously verified by slide MPV 9.9 7.0 - 11.0 FL LAB HEMETOLOGY METHOD 08/27/2024 12:41 PM [facility] NRBC 0.0 <1.0 % LAB HEMETOLOGY METHOD 08/27/2024 12:41 PM [facility] NRBC Absolute 0.00 <0.10 K/mcL LAB HEMETOLOGY METHOD 08/27/2024 12:41 PM [facility] Blood Venous blood specimen / Unknown 08/27/2024 7:46 AM EST 08/27/2024 11:46 AM EST us Stephanie Celis MD LAB BLOOD ORDERABLES Fin al Result [facility] [address] [place] [address], documented in this encounter Visit Diagnoses Diagnosis Anemia, unspecified documented in this encounter Care Teams Ob/Gyn Relationship Specialty Start Date End Date Nina Lindsay NP [address] [place] [phone] PCP - General 10/07/23 documented as of this encounter
--- OUTSIDE RECORDS SUMMARY | 2025-03-23 15:09 | XMS_ITS | Encounter Summary ---
Author Organization [facility] Address [address] [place] [address] Care Team Providers Care Front Office Developer Name Role Phone Neftali Nina Marsh NP Primary Care Provider [phone] Encounter Details Date Type Department Care Team (Late st Contact Info) Description 07/27/2024 Lab Requisition [facility] [address] [facility] [place] [address] Stephanie Celis MD [address] [phone] Vitamin D deficiency, unspecified; Chronic kidney disease, stage 3 unspecified (CMS/HCC V24, CMS/HCC V28); Anxiety disorder, unspecified; Unspecified cirrhosis of liver (CMS/HCC V24, CMS/HCC V28); Syphilis, unspecified; Chronic viral hepatitis C (CMS/HCC V24, CMS/HCC V28); Frequency of micturition; Hyperlipidemia, [...] AM EDT Office Visit Orthopedic Surgery - [place] [address] 175 [facility] [address] [place] [id number] Ulices Crowell, DPSwati [address] [address] documented as of this encounter Procedures Procedure [...] (ABNORMAL) Vitamin B12 (07/27/2024 5:39 AM EST) Vitamin B-12 >2,000(H) 250 - 900 pcg/mL LAB CHEMISTRY METHOD 07/27/2024 2:34 PM EST [facility] Blood Venous blood specimen / Unknown Venipuncture / Unknown 07/27/2024 5:39 AM EST 07/27/2024 12:17 PM EST Stephanie Celis MD LAB BLOOD ORDERABLES Fin al Result [facility] [address] [place] [address], [place] [phone] * Vitamin D 25 hydroxy (07/27/2024 5:39 AM EST) Pathologist [facility] Vit D, 25-Hydroxy 55.9 30.0 - 80.0 ng/mL LAB CHEMISTRY METHOD 07/27/2024 2:19 PM EST [facility] Blood Venous blood specimen / Unknown Venipuncture / Unknown 07/27/2024 5:39 AM EST 07/27/2024 12:17 PM EST Stephanie Celis MD LAB BLOOD ORDERABLES Fin al Result [facility] [address] [place] [address], [place] [phone] * Magnesium (07/27/2024 5:39 AM EST) Pathologist [facility] Magnesium 2.5 1.9 - 2.6 mg/dL LAB CHEMISTRY METHOD 07/27/2024 2:12 PM EST [facility] Blood Venous blood specimen / Unknown Venipuncture / Unknown 07/27/2024 5:39 AM EST 07/27/2024 12:17 PM EST Stephanie Celis MD LAB BLOOD ORDERABLES Fin al Result Performing Organization Address City/[facility]/ZIP Co de Phone Number [facility] [address] [place] [address], [place] [phone] * (ABNORMAL) Folate (07/27/2024 5:39 AM EST) Folate >20.0(H) 2.8 - 17.0 ng/ml LAB CHEMISTRY METHOD 07/27/2024 2:34 PM EST [facility] Blood Venous blood specimen / Unknown Venipuncture / Unknown 07/27/2024 5:39 AM EST 07/27/2024 12:17 PM EST Stephanie Celis MD LAB BLOOD ORDERABLES Fin al Result Performing Organization Address [facility]/ZIP Co de Phone Number [facility] [address] [place] [address], [place] [phone] * (ABNORMAL) Thyroid stimulating hormone (07/27/2024 5:39 AM EST) TSH 5.52(H) 0.40 - 4.00 mcIU/mL LAB CHEMISTRY METHOD 07/27/2024 2:19 PM EST [facility] Blood Venous blood specimen / Unknown Venipuncture / Unknown 07/27/2024 5:39 AM EST 07/27/2024 12:17 PM EST Stephanie Celis MD LAB BLOOD ORDERABLES Fin al Result Performing Organization Address City/[facility]/ZIP Co de Phone Number [facility] [address] [place] [address], [place] [phone] * (ABNORMAL) Comprehensive metabolic panel (07/27/2024 5:39 AM EST) Sodium 138 133 - 145 mmol/L LAB CHEMISTRY METHOD 07/27/2024 2:12 PM EST [facility] Potassium 4.3 3.5 - 5.5 mmol/L LAB CHEMISTRY METHOD 07/27/2024 2:12 PM [facility] Chloride 102 96 - 110 mmol/L LAB CHEMISTRY METHOD 07/27/2024 2:12 PM [facility] CO2 30 21 [...] [facility] Comment:Calculation based on the Chronic Kidney Disease Epidemiology Collaboration (CKD-EPI) equation refit without adjustment for race. BUN/Creatinine Ratio 12.8 LAB [...] g/dL LAB CHEMISTRY METHOD 07/27/2024 2:12 PM EST [facility] Albumin 2.7(L) 3.2 - 5.0 g/dL [...] Result [facility] [address] [place] [address], * (ABNORMAL) Complete blood count (07/27/2024 5:39 [...] pcg LAB HEMETOLOGY METHOD 07/27/2024 1:38 PM EST [facility] MCHC 32.2 32.0 - 37.0 g/dL LAB HEMETOLOGY METHOD 07/27/2024 1:38 PM [facility] RDW 12.6 11.0 - 15.0 % LAB HEMETOLOGY METHOD 07/27/2024 1:38 PM [facility] Platelets 150 130 - 400 K/mcL LAB HEMETOLOGY METHOD 07/27/2024 1:38 PM [facility] MPV 9.4 7.0 - 11.0 FL LAB HEMETOLOGY METHOD 07/27/2024 1:38 PM [facility] NRBC 0.0 <1.0 % LAB HEMETOLOGY METHOD 07/27/2024 1:38 PM [facility] NRBC Absolute 0.00 <0.10 K/mcL LAB HEMETOLOGY METHOD 07/27/2024 1:38 PM [facility] Blood Venous blood specimen / Unknown Venipuncture / Unknown 07/27/2024 5:39 AM EST 07/27/2024 12:17 PM EST us Stephanie Celis MD LAB BLOOD ORDERABLES Fin al Result [facility] [address] [place] [address], documented in this encounter Visit Diagnoses Diagnosis Vitamin D deficiency, unspecified Chronic kidney disease, stage 3 unspecified (CMS/HCC V24, CMS/HCC V28) Anxiety disorder, unspecified Unspecified cirrhosis of liver (CMS/HCC V24, CMS/HCC V28) Syphilis, unspecified Chronic viral hepatitis C (CMS/HCC V24, CMS/HCC V28) Chronic hepatitis C without mention of hepatic coma Frequency of micturition Urinary frequency Hyperlipidemia, unspecified Depression, unspecified Noninfective gastroenteritis and colitis, unspecified Unspecified psychosis not due to a substance or known physiological condition (CMS/[facility] V24, [facility] V28) Human immunodeficiency virus (HIV) disease ([facility] V24, [facility] V28) Human immunodeficiency virus [HIV] disease Hypothyroidism, unspecified COVID-19 documented in this encounter Care Teams Front Office Developer Relationship Specialty Start Date End Date Nian Lindsay NP [address] [place] [phone] PCP - General 10/07/23 documented as of this encounter
== END 2025-03-23 11:59 | disposition home or self-care (01) ==
LOC: HO.HKAS 11:06
PROVIDERS: PCP Nurse Practitioner Primary Care; Visit Provider Internal Medicine Nephrology
DX: N20.0 Calculus of kidney (principal); N28.1 Cyst of kidney, acquired; N18.31 Chronic kidney disease, stage 3a; I95.0 Idiopathic hypotension
CPT/HCPCS: 99214

== ENCOUNTER → 2025-03-23 11:05 | Outpatient (BNVA) | payer MEDICARE, MEDICAID, SELFPAY | PROVIDERS: PCP Nurse Practitioner Primary Care; Visit Provider Internal Medicine Nephrology | DX: N20.0 Calculus of kidney (principal); N28.1 Cyst of kidney, acquired; N18.31 Chronic kidney disease, stage 3a; I95.0 Idiopathic hypotension | CPT/HCPCS: 99212 ==

== ENCOUNTER 2025-04-05 12:54 | Outpatient (AMB) | payer MEDICARE, MEDICAID, SELFPAY ==
[2025-04-05 12:58] VITALS: BP 100/62; PULSE 91; BMI 32.2
--- NOTE | 2025-04-05 12:58 | MHC.OFFVIS ---
Vital Signs 04/05/25 12:58 Height 5 ft 4 in Weight 187 lb 13.341 oz BMI 32.2 BP 100/62 Blood Pressure Location Lt brachial Position Sitting Pulse 91 Pulse Source Pulse Oximeter Intake Visit Reasons: 3 mth s/p echo HS Beef Killer Required: No Allergies abacavir (ABACAVIR) Allergy (Severe, Verified 03/23/25 11:35) HIVES hydrochlorothiazide (HYDROCHLOROTHIAZIDE) Allergy (Severe, Verified 03/23/25 11:35) HIVES ibuprofen (From MOTRIN) Allergy (Severe, Verified 03/23/25 11:35) HIVES Penicillins (PENICILLINS) Allergy (Severe, Verified 03/23/25 11:35) HIVES tenofovir (From VIREAD) Allergy (Severe, Verified 03/23/25 11:35) HIVES tomato (TOMATO) Allergy (Severe, Verified 03/23/25 11:35) HIVES zidovudine (From RETROVIR) Allergy (Severe, Verified 03/23/25 11:35) HIVES lactose (Lactose) Adverse Reaction (Mild, Verified 03/23/25 11:35) DIARRHEA disoproxail Allergy (Mild, Uncoded 12/29/24 10:18) Unknown Medication List - Last Reconciled 04/05/25 by APARNA Saldana acetaminophen 500 mg PO Q6H PRN albuterol sulfate 90 mcg/actuation 2 puffs inhalation Q4H PRN atorvastatin (Lipitor) 20 mg PO DAILY [id number] ala 50-200-25 mg (Biktarvy) 1 tab PO DAILY calcium carbonate-vitamin D3 600 mg-10 mcg (400 unit) (Calcium 600 + D(3)) 1 tab PO BID cyanocobalamin (vitamin B-12) (Vitamin B-12) 50 mcg PO DAILY divalproex ER 750 mg PO BEDTIME divalproex ER 750 mg PO ONCE folic acid 1 mg PO DAILY levothyroxine 75 mcg PO DAILY@0600 loperamide 4 mg PO Q6H PRN midodrine 5 mg PO TID omeprazole 20 mg PO QAM quetiapine 200 mg PO TID 30 days sennosides-docusate sodium 8.6-50 mg (Stimulant Laxative Plus) 1 tab PO BID sertraline 100 mg PO DAILY simethicone 80 mg PO TID sodium chloride 0.65% (Saline Nasal) 1 spray intranasal BID trazodone 100 mg PO BEDTIME valacyclovir (Valtrex) 500 mg PO BID wheat dextrin (Benefiber Sugar Free (dextrin)) 1 packet PO BID HPI HPI 3 mth s/p echo HS: Details: Adrianne is a 64 year old female with past medical history of developmental delay, HIV, hyperlipidemia, low blood pressures who is on midodrine and recently underwent echocardiogram and now presents for follow-up. Today she reports that she has been doing well overall. She has been experiencing intermittent headaches. Her blood pressure is monitored weekly and she has had no readings greater than 130 systolic or readings below 100 systolic. A member of her [place] [facility] is present. She denies having chest pains, concerning shortness of breath, heart palpitations. She admits to lightheadedness at times and will get swelling in her legs periodically. She is compliant with all her medications. She is kept busy and attends a day program. [facility] Medical History Tremor of both hands Positive serological reaction for syphilis Hypothyroidism Hx of acute pancreatitis Hx of acute renal failure History of ETOH abuse Hx of herpes genitalis History of diverticulosis Constipation History of intravenous drug abuse Developmental delay, mild COVID-19 vaccine series completed Depression PTSD (post-traumatic stress disorder) Hyperlipidemia Seasonal allergies Hx of hepatitis C HIV (human immunodeficiency virus infection) Nocturia Frequency of micturition Surgical History History of colonoscopy Family History Mother Alzheimer disease Breast cancer HTN (hypertension) Paternal Aunt Breast cancer Social History Household Members: None Household Members Other:: [employer] Housing: Apartment Housing Other:: Assisted Are you a primary respiratory care program director to a significant other at home: No Do you presently have visiting nurse or other home services: Yes Alcohol intake: never Patient Tobacco Use Status: Never used Tobacco e-Cigarette/Vaping Use: Never Used Second Hand Smoke Exposure: No service: No Sexual orientation: Decline to Answer Female Reproductive History Menstrual Age of Menarche: 11 Review of Systems Const Details: reports headaches All systems reviewed & are unremarkable except as noted in HPI and below ENT Denies dizziness Card Denies chest pain, Denies chest pain at rest, Denies chest pain with activity, Denies rapid heart rate, Denies pedal edema, Denies edema, Denies leg edema, Denies lightheadedness, Denies palpitations, Denies dyspnea, Denies dyspnea on exertion and Denies orthopnea Resp Denies cough, Denies dyspnea and Denies dyspnea on exertion GI Denies hematochezia and Denies change in stool character Musc Reports abnormal gait (uses walker), Denies limited range of motion, Denies muscle cramps, Denies muscle weakness, Denies numbness, Denies radiating pain into limb, Denies stiffness and Denies tingling Neuro Reports abnormal gait (uses walker), Denies dizziness, Denies numbness and Denies tingling Endo Denies palpitations Physical Exam Vital Signs: Last Vital Signs Pulse 91 04/05/25 12:58 BP 100/62 04/05/25 12:58 BMI result Body Mass Index 32.2 Const General: cooperative, healthy appearing, comfortable and no acute distress Orientation/consciousness: patient oriented x3 Neck Neck: Yes normal visual inspection Resp Effort & Inspection: normal respiratory effort Auscultation: clear to auscultation bilaterally, no crackles, no rales, no rhonchi and no wheezes Cardio Rate: regular rate Rhythm: regular rhythm Heart sounds: S1 normal heart sound present, S2 normal heart sound present, no gallops, no murmurs and no rubs Neuro General: patient oriented x3 Extrem General: Yes normal to inspection, No no pedal edema and No calf tenderness Psych Appearance: grossly normal Mental Status: mental status grossly normal Speech and movement: Normal speech and movement present Assessment & Plan Assessment & Plan (1) Arterial hypotension: Code(s): I95.9 - Hypotension, unspecified Category: Medical Qualifiers: Hypotension type: idiopathic hypotension Qualified Code(s): I95.0 - Idiopathic hypotension Plan: History of symptomatic hypotension. She is on midodrine for blood pressure support. No hypertensive readings. Echocardiogram done 02/04/2025 shows normal EF, impaired relaxation. Discuss maintaining good hydration. Continue midodrine and call for systolic readings greater than 140s. Cardiology follow-up 1 year, sooner if needed (2) Diastolic dysfunction: Code(s): I51.89 - Other ill-defined heart diseases Category: Medical Plan: Impaired relaxation noted on echocardiogram. She does report periodic leg swelling. On exam she does not appear fluid overloaded. Plan During the visit, we discussed the patient's low blood pressure management. We reviewed the heart ultrasound results, which showed normalPumping function. The importance of monitoring blood pressure was emphasized, with adjustments to medication if necessary. Follow-up was planned for one year, with sooner visits if new symptoms arise. Patient Instructions: - Monitor blood pressure regularly and report if it exceeds 140 systolic or drops below 100 systolic. - Report any new symptoms such as chest pain, dizziness, or shortness of breath. - Follow up in one year or sooner if symptoms change. Patient was informed and verbally consented to the use of an ambient scribe for clinic note documentation during this visit. Visit time spent on chart review, interview, assessment, orders, documentation. Coding Level of Care Code Est Pt Level 3 (28209) Complex EM visit Add On G2211 Diagnoses Idiopathic hypotension I95.0 Hypotension type: idiopathic hypotension Diastolic dysfunction I51.89 Time Spent (min) 24
== END 2025-04-05 13:20 | disposition home or self-care (01) ==
LOC: HO.HCS 12:55
PROVIDERS: PCP Nurse Practitioner Primary Care; Visit Provider Nurse Practitioner Family
DX: I95.0 Idiopathic hypotension (principal); I51.89 Other ill-defined heart diseases
CPT/HCPCS: 99213; G2211

== ENCOUNTER → 2025-04-05 12:54 | Outpatient (BNVA) | payer MEDICARE, MEDICAID, SELFPAY | PROVIDERS: PCP Nurse Practitioner Primary Care; Visit Provider Nurse Practitioner Family | DX: I95.0 Idiopathic hypotension (principal); I51.89 Other ill-defined heart diseases | CPT/HCPCS: 99212 ==

== ENCOUNTER 2025-04-06 09:53 | Outpatient (REF) | payer MEDICARE, MEDICAID, SELFPAY ==
--- NOTE | ~2025-04-06 | US_ITS ---
EXAMINATION: US ABDOMEN LIMITED WITH LIVER ELASTOGRAPHY HISTORY: K74.60 - Unspecified cirrhosis of liver TECHNIQUE: Real-time grayscale ultrasound imaging of the right upper quadrant was performed and images were reviewed. COMPARISON: Comparison is made with the prior examination dated 05/22/2024. FINDINGS: Liver: The right lobe of the liver measures 16.1 cm in size. The left lobe of the liver measures 13.5 cm in size. The liver demonstrates increased echotexture, consistent with steatosis. The liver demonstrates a nodular contour, suggestive of cirrhosis.. No focal mass or intrahepatic biliary ductal dilatation is identified. There is normal hepatopedal flow in the portal vein. Ultrasound elastography of the liver was performed with 10 separate measurements of the liver parenchyma with the patient in the supine position. Measurements were obtained approximately 2 cm below Rozina's capsule and perpendicular to the capsule. The median shear wave velocity is 1.91 m/s. The interquartile range/median (IQR/median) is 0.07. Gallbladder and biliary tree: The gallbladder is unremarkable, without evidence of calculi, wall thickening, or pericholecystic fluid. There is no sonographic Medina sign. The common bile duct is normal in caliber measuring 5 mm. Right Kidney: The right kidney measures 10.3 cm in length. The right kidney is unremarkable, without evidence of masses, hydronephrosis, or calculi. Pancreas: The pancreatic head, neck, and body are unremarkable. The pancreatic tail is obscured by bowel gas. Abdominal aorta and inferior vena cava: The visualized portions of the abdominal aorta and inferior vena cava are normal in caliber. There is no free fluid in the right upper quadrant. US/US abdomen adan w elastography IMPRESSION: Hepatomegaly and hepatic steatosis. Nodular liver contour, suggestive of cirrhosis. The median shear wave velocity in the liver is 1.91 m/s, corresponding to a median liver stiffness of 11.10 kPa. The IQR/median value is 0.07. This is indicative of a quality data set. Findings are indicative of a high elastography value suggestive of compensated advanced chronic liver disease. REFERENCE: Society of Radiologists in Ultrasound Liver Stiffness Thresholds (2020): LIVER STIFFNESS THRESHOLDS: *Shear wave velocity less than 1.3 m/s (Liver Stiffness equal or less than 5 kPa): High probability of being normal. *Shear wave velocity less than 1.7 m/s (Liver Stiffness less than 9 kPa): In the absence of other known clinical signs, rules out compensated advanced chronic liver disease. *Shear wave velocity between 1.7-2.1 m/s (Liver Stiffness 9-13 kPa): Suggestive of compensated advanced chronic liver disease but need further test for confirmation. *Shear wave velocity between 2.1-2.4 m/s (Liver Stiffness 13-17 kPa): Rules in compensated advanced chronic liver disease. *Shear wave velocity greater than 2.4 m/s (Liver Stiffness over 17 kPa): Suggestive of clinically significant portal hypertension. QUALITY OF DATA SET: *IQR/Median value equal or less than 0.15 implies a quality data set. *IQR/Median value over 0.15 implies a poor quality data set. SIGNIFICANT CHANGE FROM PRIOR EXAM: Significant change if liver stiffness measurement is 10% or greater from prior exam. OTHER CONSIDERATIONS: The stage of liver fibrosis may be overestimated in the setting of acute hepatitis, liver inflammation, elevated liver function tests, hepatic vascular congestion, obstructive cholestasis, non-fasting state, and infiltrative diseases such as amyloidosis and lymphoma. In some patients with NAFLD, the liver stiffness thresholds for compensated advanced chronic liver disease may be lower. In causes other than viral hepatitis and NAFLD, liver stiffness thresholds are not well established. Electronically signed by: Navneet Nava MD 04/06/2025 10:45 AM EDT
--- OUTSIDE RECORDS SUMMARY | 2025-04-06 10:47 | XMS_ITS | Encounter Summary ---
Author Organization [facility] Address [address] [place] [address] Care Team Providers Care Longwall Foreman Name Role Phone LindsayNina Salma NGUYEN Primary Care Provider [phone] Encounter Details Date Type Department Care Team (Late st Contact Info) Description 07/31/2024 Lab Requisition [facility] - Main Lab [address] [facility] [place] [address] Stephanie Celis MD [address] [address] Hyperlipidemia, unspecified; Hypothyroidism, unspecified Social History Tobacco [...] Care Team (Late st Contact Info) Description 09/21/2025 10:30 AM EDT Office Visit Orthopedic Surgery - [place] [address] [address] Ulices Crowell, DPSwati [address] [address] documented as of this encounter Procedures Procedure Name Priority Date/Time Associated Diagnosis Comments COMPLETE BLOOD COUNT Routine 08/03/2024 7:57 AM EST Hyperlipidemia, unspecified Hypothyroidism, unspecified BASIC METABOLIC PANEL Routine 08/03/2024 7:57 AM EST Hyperlipidemia, unspecified Hypothyroidism, unspecified documented in this encounter Results * (ABNORMAL) Basic metabolic panel (08/03/2024 7:57 AM EST) Sodium 138 133 - 145 mmol/L LAB CHEMISTRY METHOD 08/03/2024 12:20 PM [facility] Potassium 4.3 3.5 - 5.5 mmol/L LAB CHEMISTRY METHOD 08/03/2024 12:20 PM [facility] Chloride 104 96 - 110 mmol/L LAB CHEMISTRY METHOD 08/03/2024 12:20 PM [facility] CO2 28 21 - 32 mmol/L LAB CHEMISTRY METHOD 08/03/2024 12:20 PM [facility] Anion Gap 6 3 - 11 LAB CHEMISTRY METHOD 08/03/2024 12:20 PM [facility] Glucose 107(H) 70 - 100 mg/dL LAB CHEMISTRY METHOD 08/03/2024 12:20 PM [facility] BUN 14 5 - 25 mg/dL LAB CHEMISTRY METHOD 08/03/2024 12:20 PM [facility] Creatinine 1.23(H) 0.50 - 1.10 mg/dL LAB CHEMISTRY METHOD 08/03/2024 12:20 PM [facility] eGFR 50(L) >=60 mL/min/1. 73m2 LAB CHEMISTRY METHOD 08/03/2024 12:20 PM [facility] Comment:Calculation based on the Chronic Kidney Disease Epidemiology Collaboration (CKD-EPI) equation refit without adjustment for race. BUN/Creatinine Ratio 11.4 LAB CHEMISTRY METHOD 08/03/2024 12:20 PM [facility] Calcium 8.9 8.5 - 10.5 mg/dL LAB CHEMISTRY METHOD 08/03/2024 12:20 PM [facility] Blood Venous blood specimen / Unknown Venipuncture / Unknown 08/03/2024 7:57 AM EST 08/03/2024 11:09 AM EST Stephanie Celis MD LAB BLOOD ORDERABLES Fin al Result [facility] [address] [place] [address], * (ABNORMAL) Complete blood count (08/03/2024 7:57 AM EST) WBC 2.5(L) 4.8 - 10.8 K/mcL LAB HEMETOLOGY METHOD 08/03/2024 1:03 PM [facility] RBC 2.60(L) 3.80 - 4.80 M/mcL LAB HEMETOLOGY METHOD 08/03/2024 1:03 PM [facility] Hemoglobin 10.0(L) 11.5 - 16.0 g/dL LAB HEMETOLOGY METHOD 08/03/2024 1:03 PM [facility] Hematocrit 30.5(L) 35.0 - 47.0 % LAB HEMETOLOGY METHOD 08/03/2024 1:03 PM [facility] MCV 117.8(H) 79.0 - 98.0 FL LAB HEMETOLOGY METHOD 08/03/2024 1:03 PM [facility] MCH 38.6(H) 27.0 - 32.0 pcg LAB HEMETOLOGY METHOD 08/03/2024 1:03 PM [facility] MCHC 32.8 32.0 - 37.0 g/dL LAB HEMETOLOGY METHOD 08/03/2024 1:03 PM [facility] RDW 12.2 11.0 - 15.0 % LAB HEMETOLOGY METHOD 08/03/2024 1:03 PM [facility] Platelets 78(L) 130 - 400 K/mcL LAB HEMETOLOGY METHOD 08/03/2024 1:03 PM [facility] Comment:reviewed by slide MPV 9.6 7.0 - 11.0 FL LAB HEMETOLOGY METHOD 08/03/2024 1:03 PM EST [facility] NRBC 0.0 <1.0 % LAB HEMETOLOGY METHOD 08/03/2024 1:03 PM EST [facility] NRBC Absolute 0.00 <0.10 K/mcL LAB HEMETOLOGY METHOD 08/03/2024 1:03 PM EST [facility] Blood Venous blood specimen / Unknown Venipuncture / Unknown 08/03/2024 7:57 AM EST 08/03/2024 11:09 AM EST us Stephanie Celis MD LAB BLOOD ORDERABLES Fin al Result [facility] [address] [place] [address], documented in this encounter Visit Diagnoses Diagnosis Hyperlipidemia, unspecified Hypothyroidism, unspecified documented in this encounter Care Teams Longwall Foreman Relationship Specialty Start Date End Date Nina Lindsay NP [address] [phone] PCP - General 10/07/23 documented as of this encounter
--- OUTSIDE RECORDS SUMMARY | 2025-04-06 10:47 | XMS_ITS | Encounter Summary ---
Author Organization [facility] Address [address] [place] [address] Care Team Providers Care Clean Energy Policy Analyst Name Role Phone LindsayNina Salma NGUYEN Primary Care Provider [phone] Encounter Details Date Type Department Care Team (Late st Contact Info) Description 08/15/2024 Lab Requisition [facility] - Main Lab 299 [facility] [place] [address] Stephanie Celis MD [address] [address] Hyperlipidemia, unspecified; Hypothyroidism, unspecified Social History Tobacco [...] AM EDT Office Visit Orthopedic Surgery - [employer] [address] [address] Ulices Crowell, DPSwati [address] [address] documented as of this encounter Procedures Procedure Name Priority Date/Time Associated Diagnosis Comments COMPLETE BLOOD COUNT Routine 08/17/2024 5:27 AM EST Hyperlipidemia, unspecified Hypothyroidism, unspecified BASIC METABOLIC PANEL Routine 08/17/2024 5:27 AM EST Hyperlipidemia, unspecified Hypothyroidism, unspecified documented in this encounter Results * (ABNORMAL) Basic metabolic panel (08/17/2024 5:27 AM EST) Sodium 139 133 - 145 mmol/L LAB CHEMISTRY METHOD 08/17/2024 11:29 AM [facility] Potassium 3.8 3.5 - 5.5 mmol/L LAB CHEMISTRY METHOD 08/17/2024 11:29 AM [facility] Chloride 103 96 - 110 mmol/L LAB CHEMISTRY METHOD 08/17/2024 11:29 AM [facility] CO2 30 21 - 32 mmol/L LAB CHEMISTRY METHOD 08/17/2024 11:29 AM [facility] Anion Gap 6 3 - 11 LAB CHEMISTRY METHOD 08/17/2024 11:29 AM [facility] Glucose 98 70 - 100 mg/dL LAB CHEMISTRY METHOD 08/17/2024 11:29 AM [facility] BUN 18 5 - 25 mg/dL LAB CHEMISTRY METHOD 08/17/2024 11:29 AM [facility] Creatinine 1.57(H) 0.50 - 1.10 mg/dL LAB CHEMISTRY METHOD 08/17/2024 11:29 AM [facility] eGFR 37(L) >=60 mL/min/1. 73m2 LAB CHEMISTRY METHOD 08/17/2024 11:29 AM [facility] Comment:Calculation based on the Chronic Kidney Disease Epidemiology Collaboration (CKD-EPI) equation refit without adjustment for race. BUN/Creatinine Ratio 11.5 LAB CHEMISTRY METHOD 08/17/2024 11:29 AM [facility] Calcium 8.6 8.5 - 10.5 mg/dL LAB CHEMISTRY METHOD 08/17/2024 11:29 AM [facility] Blood Venous blood specimen / Unknown Venipuncture / Unknown 08/17/2024 5:27 AM EST 08/17/2024 10:16 AM EST Stephanie Celis MD LAB BLOOD ORDERABLES Fin al Result [facility] [address] [place] [address], * (ABNORMAL) Complete blood count (08/17/2024 5:27 AM EST) WBC 2.6(L) 4.8 - 10.8 K/mcL LAB HEMETOLOGY METHOD 08/17/2024 10:38 AM [facility] RBC 2.70(L) 3.80 - 4.80 M/mcL LAB HEMETOLOGY METHOD 08/17/2024 10:38 AM [facility] Hemoglobin 10.1(L) 11.5 - 16.0 g/dL LAB HEMETOLOGY METHOD 08/17/2024 10:38 AM [facility] Hematocrit 31.7(L) 35.0 - 47.0 % LAB HEMETOLOGY METHOD 08/17/2024 10:38 AM [facility] MCV 118.7(H) 79.0 - 98.0 FL LAB HEMETOLOGY METHOD 08/17/2024 10:38 AM [facility] MCH 37.8(H) 27.0 - 32.0 pcg LAB HEMETOLOGY METHOD 08/17/2024 10:38 AM [facility] MCHC 31.9(L) 32.0 - 37.0 g/dL LAB HEMETOLOGY METHOD 08/17/2024 10:38 AM [facility] RDW 13.2 11.0 - 15.0 % LAB HEMETOLOGY METHOD 08/17/2024 10:38 AM [facility] Platelets 50(L) 130 - 400 K/mcL LAB HEMETOLOGY METHOD 08/17/2024 10:38 AM [facility] Comment:previously verified by slide MPV 9.6 7.0 - 11.0 FL LAB HEMETOLOGY METHOD 08/17/2024 10:38 AM EST [facility] NRBC 0.0 <1.0 % LAB HEMETOLOGY METHOD 08/17/2024 10:38 AM EST [facility] NRBC Absolute 0.00 <0.10 K/mcL LAB HEMETOLOGY METHOD 08/17/2024 10:38 AM EST [facility] Blood Venous blood specimen / Unknown Venipuncture / Unknown 08/17/2024 5:27 AM EST 08/17/2024 10:16 AM EST us Stephanie Celis MD LAB BLOOD ORDERABLES Fin al Result [facility] [address] [place] [address], documented in this encounter Visit Diagnoses Diagnosis Hyperlipidemia, unspecified Hypothyroidism, unspecified documented in this encounter Care Teams Clean Energy Policy Analyst Relationship Specialty Start Date End Date Nina Lindsay NP [address] [place] [phone] PCP - General 10/07/23 documented as of this encounter
--- OUTSIDE RECORDS SUMMARY | 2025-04-06 10:47 | XMS_ITS | Encounter Summary ---
Author Organization [facility] Address [address] [place] [address] Care Team Providers Care Dealer Sales Rep Name Role Phone Neftali Nina [place] NP Primary Care Provider [phone] Encounter Details Date Type Department Care Team (Late st Contact Info) Description 09/08/2024 Lab Requisition [facility] - Main Lab 299 [facility] [place] [address] Stephanie Celis MD [address] [address] Other long term care social worker (current) drug therapy Social History Tobacco Use [...] Department Care Team (Late Contact Info) Description 09/21/2025 10:30 AM EDT Office Visit Orthopedic Surgery - [place] [address] [address] Ulices Crowell, DPSwati 175 [facility] 250 [place] [address] documented as of this encounter Procedures Procedure Name Priority Date/Time Associated Diagnosis Comments COMPLETE BLOOD COUNT Routine 09/08/2024 7:20 AM EST Other long term care social worker (current) drug therapy BASIC METABOLIC PANEL Routine 09/08/2024 7:20 AM EST Other long term care social worker (current) drug therapy documented in this encounter Results * (ABNORMAL) Basic metabolic panel (09/08/2024 7:20 AM EST) Sodium 140 133 - 145 mmol/L LAB CHEMISTRY METHOD 09/08/2024 10:01 AM [facility] Potassium 4.2 3.5 - 5.5 mmol/L LAB CHEMISTRY METHOD 09/08/2024 10:01 AM [facility] Chloride 103 96 - 110 mmol/L LAB CHEMISTRY METHOD 09/08/2024 10:01 AM [facility] CO2 26 21 - 32 mmol/L LAB CHEMISTRY METHOD 09/08/2024 10:01 AM [facility] Anion Gap 11 3 - 11 LAB CHEMISTRY METHOD 09/08/2024 10:01 AM [facility] Glucose 109(H) 70 - 100 mg/dL LAB CHEMISTRY METHOD 09/08/2024 10:01 AM [facility] BUN 9 5 - 25 mg/dL LAB CHEMISTRY METHOD 09/08/2024 10:01 AM [facility] Creatinine 1.08 0.50 - 1.10 mg/dL LAB CHEMISTRY METHOD 09/08/2024 10:01 AM [facility] eGFR 58(L) >=60 mL/min/1. 73m2 LAB CHEMISTRY METHOD 09/08/2024 10:01 AM [facility] Comment:Calculation based on the Chronic Kidney Disease Epidemiology Collaboration (CKD-EPI) equation refit without adjustment for race. BUN/Creatinine Ratio 8.3 LAB CHEMISTRY METHOD 09/08/2024 10:01 AM [facility] Calcium 8.6 8.5 - 10.5 mg/dL LAB CHEMISTRY METHOD 09/08/2024 10:01 AM [facility] Blood Venous blood specimen / Unknown Venipuncture / Unknown 09/08/2024 7:20 AM EST 09/08/2024 9:03 AM EST Stephanie Celis MD LAB BLOOD ORDERABLES Fin al Result [facility] [address] [place] [address], * (ABNORMAL) Complete blood count (09/08/2024 7:20 AM EST) WBC 2.1(L) 4.8 - 10.8 K/mcL LAB HEMETOLOGY METHOD 09/08/2024 10:40 AM [facility] RBC 2.80(L) 3.80 - 4.80 M/mcL LAB HEMETOLOGY METHOD 09/08/2024 10:40 AM [facility] Hemoglobin 10.6(L) 11.5 - 16.0 g/dL LAB HEMETOLOGY METHOD 09/08/2024 10:40 AM [facility] Hematocrit 31.8(L) 35.0 - 47.0 % LAB HEMETOLOGY METHOD 09/08/2024 10:40 AM [facility] MCV 113.2(H) 79.0 - 98.0 FL LAB HEMETOLOGY METHOD 09/08/2024 10:40 AM [facility] MCH 37.7(H) 27.0 - 32.0 pcg LAB HEMETOLOGY METHOD 09/08/2024 10:40 AM [facility] MCHC 33.3 32.0 - 37.0 g/dL LAB HEMETOLOGY METHOD 09/08/2024 10:40 AM [facility] RDW 13.2 11.0 - 15.0 % LAB HEMETOLOGY METHOD 09/08/2024 10:40 AM [facility] Platelets 34(L) 130 - 400 K/mcL LAB HEMETOLOGY METHOD 09/08/2024 10:40 AM [facility] Comment:previously verified by slide MPV 9.7 7.0 - 11.0 FL LAB HEMETOLOGY METHOD 09/08/2024 10:40 AM EST [facility] NRBC 0.0 <1.0 % LAB HEMETOLOGY METHOD 09/08/2024 10:40 AM EST [facility] NRBC Absolute 0.00 <0.10 K/mcL LAB HEMETOLOGY METHOD 09/08/2024 10:40 AM EST [facility] Blood Venous blood specimen / Unknown Venipuncture / Unknown 09/08/2024 7:20 AM EST 09/08/2024 9:03 AM EST us Stephanie Celis MD LAB BLOOD ORDERABLES Fin al Result [facility] 299 [place] [address], documented in this encounter Visit Diagnoses Diagnosis Other group home (current) drug therapy documented in this encounter Care Teams Dealer Sales Rep Relationship Specialty Start Date End Date Nina Lindsay NP [address] [phone] PCP - General 10/07/23 documented as of this encounter
--- OUTSIDE RECORDS SUMMARY | 2025-04-06 10:47 | XMS_ITS | Encounter Summary ---
Author Organization [facility] Address [address] [place] [address] Care Team Providers Care Pumper Gauger Name Role Phone LindsayNina Salma NGUYEN Primary Care Provider [phone] Encounter Details Date Type Department Care Team (Late st Contact Info) Description 08/07/2024 Lab Requisition [facility] - Main Lab 299 [facility] [place] [address] Stephanie Celis MD [address] [address] Hyperlipidemia, unspecified; Hypothyroidism, unspecified Social History Tobacco [...] AM EDT Office Visit Orthopedic Surgery - [place] [address] [address] Ulices Crowell, DPSwati [address] [address] documented as of this encounter Procedures Procedure Name Priority Date/Time Associated Diagnosis Comments COMPLETE BLOOD COUNT Routine 08/10/2024 8:44 AM EST Hyperlipidemia, unspecified Hypothyroidism, unspecified BASIC METABOLIC PANEL Routine 08/10/2024 8:44 AM EST Hyperlipidemia, unspecified Hypothyroidism, unspecified documented in this encounter Results * (ABNORMAL) Basic metabolic panel (08/10/2024 8:44 AM EST) Sodium 139 133 - 145 mmol/L LAB CHEMISTRY METHOD 08/10/2024 1:[address] [facility] Potassium 3.6 3.5 - 5.5 mmol/L LAB CHEMISTRY METHOD 08/10/2024 1:[address] [facility] Chloride 103 96 - 110 mmol/L LAB CHEMISTRY METHOD 08/10/2024 1:[address] [facility] CO2 29 21 - 32 mmol/L LAB CHEMISTRY METHOD 08/10/2024 1:[address] [facility] Anion Gap 7 3 - 11 LAB CHEMISTRY METHOD 08/10/2024 1:[address] [facility] Glucose 128(H) 70 - 100 mg/dL LAB CHEMISTRY METHOD 08/10/2024 1:[address] [facility] BUN 22 5 - 25 mg/dL LAB CHEMISTRY METHOD 08/10/2024 1:[address] [facility] Creatinine 1.37(H) 0.50 - 1.10 mg/dL LAB CHEMISTRY METHOD 08/10/2024 1:[address] [facility] eGFR 44(L) >=60 mL/min/1. 73m2 LAB CHEMISTRY METHOD 08/10/2024 1:[address] [facility] Comment:Calculation based on the Chronic Kidney Disease Epidemiology Collaboration (CKD-EPI) equation refit without adjustment for race. BUN/Creatinine Ratio 16.1 LAB CHEMISTRY METHOD 08/10/2024 1:[address] [facility] Calcium 8.5 8.5 - 10.5 mg/dL LAB CHEMISTRY METHOD 08/10/2024 1:[address] [facility] Blood Venous blood specimen / Unknown Venipuncture / Unknown 08/10/2024 8:44 AM EST 08/10/2024 11:11 AM EST Stephanie Celis MD LAB BLOOD ORDERABLES Fin al Result [facility] [address] [place] [address], * (ABNORMAL) Complete blood count (08/10/2024 8:44 AM EST) WBC 3.9(L) 4.8 - 10.8 K/mcL LAB HEMETOLOGY METHOD 08/10/2024 12:[address] [facility] RBC 2.60(L) 3.80 - 4.80 M/mcL LAB HEMETOLOGY METHOD 08/10/2024 12:[address] [facility] Hemoglobin 9.9(L) 11.5 - 16.0 g/dL LAB HEMETOLOGY METHOD 08/10/2024 12:[address] [facility] Hematocrit 30.5(L) 35.0 - 47.0 % LAB HEMETOLOGY METHOD 08/10/2024 12:[address] [facility] MCV 116.4(H) 79.0 - 98.0 FL LAB HEMETOLOGY METHOD 08/10/2024 12:[address] [facility] MCH 37.8(H) 27.0 - 32.0 pcg LAB HEMETOLOGY METHOD 08/10/2024 12:[address] [facility] MCHC 32.5 32.0 - 37.0 g/dL LAB HEMETOLOGY METHOD 08/10/2024 12:[address] [facility] RDW 12.3 11.0 - 15.0 % LAB HEMETOLOGY METHOD 08/10/2024 12:[address] [facility] Platelets 43(L) 130 - 400 K/mcL LAB HEMETOLOGY METHOD 08/10/2024 12:[address] [facility] Comment:previously verified by slide MPV 9.8 7.0 - 11.0 FL LAB HEMETOLOGY METHOD 08/10/2024 12:39 PM EST [facility] NRBC 0.5 <1.0 % LAB HEMETOLOGY METHOD 08/10/2024 12:39 PM EST [facility] NRBC Absolute 0.02 <0.10 K/mcL LAB HEMETOLOGY METHOD 08/10/2024 12:39 PM EST [facility] Blood Venous blood specimen / Unknown Venipuncture / Unknown 08/10/2024 8:44 AM EST 08/10/2024 11:11 AM EST us Stephanie Celis MD LAB BLOOD ORDERABLES Fin al Result [facility] 299 [place] [address], documented in this encounter Visit Diagnoses Diagnosis Hyperlipidemia, unspecified Hypothyroidism, unspecified documented in this encounter Care Teams Pumper Gauger Relationship Specialty Start Date End Date Nina Lindsay NP [address] [place] [phone] PCP - General 10/07/23 documented as of this encounter
--- OUTSIDE RECORDS SUMMARY | 2025-04-06 10:47 | XMS_ITS | Encounter Summary ---
Author Organization [facility] Address [address] [place] [address] Care Team Providers Care Side Panel Padder Name Role Phone NeftaliNina Salma NGUYEN Primary Care Provider [phone] Encounter Details Date Type Department Care Team (Late st Contact Info) Description 08/26/2024 Lab Requisition [facility] - Main Lab 299 [place] [address] Stephanie Celis MD [address] [address] Anemia, unspecified Social History Tobacco Use Types [...] AM EDT Office Visit Orthopedic Surgery - [place] 250 175 [facility] 250 [place] [phone] Ulices Crowell DPM [address] [address] documented as of this encounter Procedures Procedure Name Priority Date/Time Associated Diagnosis Comments COMPLETE BLOOD COUNT Routine 08/27/2024 7:46 AM EST Anemia, unspecified documented in this encounter Results * (ABNORMAL) Complete blood count (08/27/2024 7:46 AM EST) WBC 1.9(LL) 4.8 - 10.8 K/[facility] LAB HEMETOLOGY METHOD 08/27/2024 12:[address] [facility] RBC 2.60(L) 3.80 - 4.80 M/mcL LAB HEMETOLOGY METHOD 08/27/2024 12:[address] [facility] Hemoglobin 9.8(L) 11.5 - 16.0 g/dL LAB HEMETOLOGY METHOD 08/27/2024 12:[address] [facility] Hematocrit 30.2(L) 35.0 - 47.0 % LAB HEMETOLOGY METHOD 08/27/2024 12:[address] [facility] MCV 115.7(H) 79.0 - 98.0 FL LAB HEMETOLOGY METHOD 08/27/2024 12:[address] [facility] MCH 37.5(H) 27.0 - 32.0 pcg LAB HEMETOLOGY METHOD 08/27/2024 12:[address] [facility] MCHC 32.5 32.0 - 37.0 g/dL LAB HEMETOLOGY METHOD 08/27/2024 12:[address] [facility] RDW 13.2 11.0 - 15.0 % LAB HEMETOLOGY METHOD 08/27/2024 12:[address] [facility] Platelets 30(L) 130 - 400 K/mcL LAB HEMETOLOGY METHOD 08/27/2024 12:[address] [facility] Comment:previously verified by slide MPV 9.9 7.0 - 11.0 FL LAB HEMETOLOGY METHOD 08/27/2024 12:[address] [facility] NRBC 0.0 <1.0 % LAB HEMETOLOGY METHOD 08/27/2024 12:[address] [facility] NRBC Absolute 0.00 <0.10 K/mcL LAB HEMETOLOGY METHOD 08/27/2024 12:[address] [facility] Blood Venous blood specimen / Unknown 08/27/2024 7:46 AM EST 08/27/2024 11:46 AM EST us Stpehanie Celis MD LAB BLOOD ORDERABLES Fin al Result [facility] 299 [place] [address], documented in this encounter Visit Diagnoses Diagnosis Anemia, unspecified documented in this encounter Care Teams Side Panel Padder Relationship Specialty Start Date End Date Nina Lindsay NP [address] [place] [phone] PCP - General 10/07/23 documented as of this encounter
--- OUTSIDE RECORDS SUMMARY | 2025-04-06 10:47 | XMS_ITS | Clinical Summary ---
Author Organization 175 [facility] Address 175 [place] [address] Phone Care Team Providers Care Primary Care Nurse Practitioner Name Role Phone Nina Lindsay NP Primary Care Provider [phone] Allergies Active Allergy Reactions Criticality Noted Date [...] Encounters Date Type Department Care Team Description 03/24/2025 10:00 AM EDT Office Visit Orthopedic Surgery - [address] [address] Ulices Crowell DPM Pain in both feet (Primary Dx); Hammertoes of both feet; PVD (peripheral vascular disease) (CMS/HCC V24); Arthritis of both feet; Dermatophytosis, nail from Last 3 Months Social History Tobacco [...] AM EDT Office Visit Orthopedic Surgery - [place] 250 175 [facility] [address] [place] [phone] Ulices Crowell, TRACY 175 [facility] [place] 250 [place] [address] Health Maintenance Due Date Last Done Comments Breast Cancer Screening 1961 Colorectal Cancer Screening: Colonoscopy 1961 MMR Vaccines (1 of 2 - Risk 2-dose series) 11/23/1979 Cervical Cancer Screening: Pap Smear 1982 Hepatitis B Vaccines (3 of 3 - Risk 3-dose series) 02/09/2011 12/15/2010, 11/06/2010, 12/19/2009 Cholesterol Screening (Lipid Panel) 01/30/2024 Medicare Annual Wellness Visit 01/30/2024 Social Influencers of Health Screening 01/30/2024 Depression Screening 07/08/2024 COVID-19 Vaccine (6 - Pfizer risk season) 2025 05/11/2024, 08/12/2023, 04/28/2021, Additional history exists Influenza Vaccine (#1) 2025 , 04/04/2023, 03/30/2022, Additional history exists Meningococcal ACWY Vaccine (3 - Risk 2-dose series) 09/29/2028 09/30/2023, 10/27/2018, 09/09/2017 DTaP,Tdap,and Td Vaccines (4 - Td or Tdap) 09/29/2033 09/30/2023, 06/23/2012, 02/06/2010 Hepatitis C Screening Completed 05/20/1998 Hepatitis A Vaccines Completed 12/06/2004, 06/08/20 04 Zoster Vaccines Completed 04/01/2020, 05/30/2019 Pneumococcal Vaccine: 50+ Years Completed 08/12/2023, 07/19/2014, 01/28/2012, Additional history exists RSV Immunization Adult Patients Completed 10/02/2023 HIB Vaccines Aged Out No longer eligi [...] C Screening (05/20/1998) Hepatitis C Screening Abstracted Historical Provider MD HEALTH MAINTENANCE Final Result from Last 3 Months or Most Recently Relevant to Health Maintenance Insurance MEDICARE [place]ICA[place] - [place] Care Teams Primary Care Nurse Practitioner Relationship Specialty Start Date End Date Nina Lindsay NP [address] [place] [phone] PCP - General 10/07/23
--- OUTSIDE RECORDS SUMMARY | 2025-04-06 10:47 | XMS_ITS | Encounter Summary ---
Author Organization [facility] Address [address] [place] [address] Care Team Providers Care Zig Zag Spring Machine Operator Name Role Phone LindsayNina Salma NGUYEN Primary Care Provider [phone] Encounter Details Date Type Department Care Team (Late st Contact Info) Description 08/23/[address] [facility] - Main Lab 299 [facility] [place] [address] Stephanie Celis MD [address] [address] Hypothyroidism, unspecified; Hyperlipidemia, unspecified Social History Tobacco [...] AM EDT Office Visit Orthopedic Surgery - [place] [address] [address] Ulices Crowell, DPSwati [address] [address] documented as of this encounter Procedures Procedure Name Priority Date/Time Associated Diagnosis Comments COMPLETE BLOOD COUNT Routine 08/24/2024 6:57 AM EST Hypothyroidism, unspecified Hyperlipidemia, unspecified BASIC METABOLIC PANEL Routine 08/24/2024 6:57 AM EST Hypothyroidism, unspecified Hyperlipidemia, unspecified documented in this encounter Results * (ABNORMAL) Basic metabolic panel (08/24/2024 6:57 AM EST) Sodium 141 133 - 145 mmol/L LAB CHEMISTRY METHOD 08/24/2024 11:16 AM [facility] Potassium 3.2(L) 3.5 - 5.5 mmol/L LAB CHEMISTRY METHOD 08/24/2024 11:16 AM [facility] Chloride 105 96 - 110 mmol/L LAB CHEMISTRY METHOD 08/24/2024 11:16 AM [facility] CO2 26 21 - 32 mmol/L LAB CHEMISTRY METHOD 08/24/2024 11:16 AM [facility] Anion Gap 10 3 - 11 LAB CHEMISTRY METHOD 08/24/2024 11:16 AM [facility] Glucose 87 70 - 100 mg/dL LAB CHEMISTRY METHOD 08/24/2024 11:16 AM [facility] BUN 15 5 - 25 mg/dL LAB CHEMISTRY METHOD 08/24/2024 11:16 AM [facility] Creatinine 1.38(H) 0.50 - 1.10 mg/dL LAB CHEMISTRY METHOD 08/24/2024 11:16 AM [facility] eGFR 43(L) >=60 mL/min/1. 73m2 LAB CHEMISTRY METHOD 08/24/2024 11:16 AM [facility] Comment:Calculation based on the Chronic Kidney Disease Epidemiology Collaboration (CKD-EPI) equation refit without adjustment for race. BUN/Creatinine Ratio 10.9 LAB CHEMISTRY METHOD 08/24/2024 11:16 AM [facility] Calcium 8.5 8.5 - 10.5 mg/dL LAB CHEMISTRY METHOD 08/24/2024 11:16 AM [facility] Blood Venous blood specimen / Unknown Venipuncture / Unknown 08/24/2024 6:57 AM EST 08/24/2024 10:21 AM EST Stephanie Celis MD LAB BLOOD ORDERABLES Fin al Result [facility] [address] [place] [address], * (ABNORMAL) Complete blood count (08/24/2024 6:57 AM EST) WBC 2.4(L) 4.8 - 10.8 K/mcL LAB HEMETOLOGY METHOD 08/24/2024 10:58 AM [facility] RBC 2.70(L) 3.80 - 4.80 M/mcL LAB HEMETOLOGY METHOD 08/24/2024 10:58 AM [facility] Hemoglobin 10.1(L) 11.5 - 16.0 g/dL LAB HEMETOLOGY METHOD 08/24/2024 10:58 AM [facility] Hematocrit 31.4(L) 35.0 - 47.0 % LAB HEMETOLOGY METHOD 08/24/2024 10:58 AM [facility] MCV 118.0(H) 79.0 - 98.0 FL LAB HEMETOLOGY METHOD 08/24/2024 10:58 AM [facility] MCH 38.0(H) 27.0 - 32.0 pcg LAB HEMETOLOGY METHOD 08/24/2024 10:58 AM [facility] MCHC 32.2 32.0 - 37.0 g/dL LAB HEMETOLOGY METHOD 08/24/2024 10:58 AM [facility] RDW 13.5 11.0 - 15.0 % LAB HEMETOLOGY METHOD 08/24/2024 10:58 AM [facility] Platelets 33(L) 130 - 400 K/mcL LAB HEMETOLOGY METHOD 08/24/2024 10:58 AM [facility] Comment:previously verified by slide MPV 9.3 7.0 - 11.0 FL LAB HEMETOLOGY METHOD 08/24/2024 10:58 AM EST [facility] NRBC 0.0 <1.0 % LAB HEMETOLOGY METHOD 08/24/2024 10:58 AM EST [facility] NRBC Absolute 0.00 <0.10 K/mcL LAB HEMETOLOGY METHOD 08/24/2024 10:58 AM EST [facility] Blood Venous blood specimen / Unknown Venipuncture / Unknown 08/24/2024 6:57 AM EST 08/24/2024 10:21 AM EST us Stephanie Celis MD LAB BLOOD ORDERABLES Fin al Result [facility] [address] [place] [address], documented in this encounter Visit Diagnoses Diagnosis Hypothyroidism, unspecified Hyperlipidemia, unspecified documented in this encounter Care Teams Zig Zag Spring Machine Operator Relationship Specialty Start Date End Date Nina Lindsay NP [address] [place] [phone] PCP - General 10/07/23 documented as of this encounter
--- OUTSIDE RECORDS SUMMARY | 2025-04-06 10:47 | XMS_ITS | Encounter Summary ---
Author Organization [facility] Address [address] [place] [address] Care Team Providers Care Rn Paralegal Name Role Phone Neftali Nina [place] NP Primary Care Provider [phone] Encounter Details Date Type Department Care Team (Late st Contact Info) Description 09/29/2024 Lab Requisition [facility] 299 [facility] [place] [address] Stephanie Celis MD [address] [address] Hyperlipidemia, unspecified; Unspecified cirrhosis of liver (CMS/HCC [...] AM EDT Office Visit Orthopedic Surgery - [place] [address] [phone] Ulices Crowell, TRACY [address] [address] documented as of this encounter Procedures Procedure Name Priority Date/Time Associated Diagnosis Comments COMPLETE BLOOD COUNT Routine 09/29/2024 8:28 AM EDT Hyperlipidemia, unspecified Unspecified cirrhosis of liver (CMS/HCC) Chronic kidney disease, stage 3 unspecified (CMS/HCC) documented in this encounter Results * (ABNORMAL) Complete blood count (09/29/2024 8:28 AM EDT) [facility] Signature WBC 4.0(L) 4.8 - 10.8 K/mcL LAB HEMETOLOGY METHOD 09/29/2024 10:51 AM [facility] RBC 3.50(L) 3.80 - 4.80 M/mcL LAB HEMETOLOGY METHOD 09/29/2024 10:51 AM EDT [facility] Hemoglobin 12.9 11.5 - 16.0 [...] LAB HEMETOLOGY METHOD 09/29/2024 10:51 AM EDT [facility] NRBC Absolute 0.00 <0.10 K/mcL LAB HEMETOLOGY METHOD 09/29/2024 10:51 AM EDT [facility] Blood Venous blood specimen / Unknown Venipuncture / Unknown 09/29/2024 8:28 AM EDT 09/29/2024 10:07 AM EDT us Stephanie Celis MD LAB BLOOD ORDERABLES Fin al Result [facility] [address] [place] [address], documented in this encounter Visit Diagnoses Diagnosis Hyperlipidemia, unspecified Unspecified cirrhosis of liver (CMS/HCC V24, CMS/HCC V28) Chronic kidney disease, stage 3 unspecified (CMS/HCC V24, CMS/HCC V28) documented in this encounter Care Teams Rn Paralegal Relationship Specialty Start Date End Date Nina Lindsay NP [address] [place] [phone] PCP - General 10/07/23 documented as of this encounter
--- OUTSIDE RECORDS SUMMARY | 2025-04-06 10:47 | XMS_ITS | Encounter Summary ---
Author Organization [facility] Address [address] [place] [address] Care Team Providers Care Last Sawyer Name Role Phone Neftali Nina [place] NP Primary Care Provider [phone] Encounter Details Date Type Department Care Team (Late Contact Info) Description 08/13/2024 Lab Requisition [facility] 299 [facility] [place] [address] Stephanie Celis MD [address] [address] Human immunodeficiency virus (HIV) disease (CMS/HCC V24, [...] AM EDT Office Visit Orthopedic Surgery - [place] [address] [phone] Ulices Crowell, TRACY [address] [address] documented as of this encounter Procedures Procedure Name Priority Date/Time Associated Diagnosis Comments COMPLETE BLOOD COUNT Routine 08/13/2024 7:22 AM EST Human immunodeficiency virus (HIV) disease (CMS/[facility]) Noninfective gastroenteritis and colitis, unspecified Altered mental status, unspecified Vitamin D deficiency, unspecified documented in this encounter Results * (ABNORMAL) Complete blood count (08/13/2024 7:22 AM EST) WBC 2.6(L) 4.8 - 10.8 K/mcL LAB HEMETOLOGY METHOD 08/13/2024 10:51 AM [facility] RBC 2.50(L) 3.80 - [...] LAB HEMETOLOGY METHOD 08/13/2024 10:[address] [facility] NRBC Absolute 0.00 <0.10 K/mcL LAB HEMETOLOGY METHOD 08/13/2024 10:[address] [facility] Blood Venous blood specimen / Unknown Venipuncture / Unknown 08/13/2024 7:22 AM EST 08/13/2024 9:57 AM EST us Stephanie Celis MD LAB BLOOD ORDERABLES Fin al Result [facility] [address] [place] [address], documented in this encounter Visit Diagnoses Diagnosis Human immunodeficiency virus (HIV) disease (CMS/HCC V24, CMS/[facility] V28) Human immunodeficiency virus [HIV] disease Noninfective gastroenteritis and colitis, unspecified Altered mental status, unspecified Vitamin D deficiency, unspecified documented in this encounter Care Teams Last Sawyer Relationship Specialty Start Date End Date Nina Lindsay NP [address] [place] [phone] PCP - General 10/07/23 documented as of this encounter
--- OUTSIDE RECORDS SUMMARY | 2025-04-06 10:47 | XMS_ITS | Encounter Summary ---
Author Organization [facility] Address [address] [place] [address] Care Team Providers Care Tool And Die Manager Name Role Phone Neftali Nina Marsh NP Primary Care Provider [phone] Encounter Details Date Type Department Care Team (Late st Contact Info) Description 09/16/2024 Lab Requisition [facility] Lab 299 [facility] [place] [address] Stephanie Celis MD [address] [address] Hyperlipidemia, unspecified; Unspecified cirrhosis of liver (CMS/HCC [...] AM EDT Office Visit Orthopedic Surgery - [place] [address] [phone] Ulices Crowell, TRACY [address] [address] documented as of this encounter Procedures Procedure [...] mmol/L LAB CHEMISTRY METHOD 09/16/2024 11:36 AM [facility] LAB Potassium 3.8 3.5 - 5.5 mmol/L LAB CHEMISTRY METHOD 09/16/2024 11:36 AM [facility] LAB Chloride 104 96 - 110 mmol/L LAB CHEMISTRY METHOD 09/16/2024 11:36 AM [facility] LAB CO2 26 21 - 32 mmol/L LAB CHEMISTRY METHOD 09/16/2024 11:36 AM [facility] LAB Anion Gap 9 3 - 11 LAB CHEMISTRY METHOD 09/16/2024 11:36 AM [facility] LAB Glucose 102(H) 70 - 100 mg/dL LAB CHEMISTRY METHOD 09/16/2024 11:36 AM [facility] LAB BUN 13 5 - 25 mg/dL LAB CHEMISTRY METHOD 09/16/2024 11:36 AM [facility] LAB Creatinine 1.25(H) 0.50 - 1.10 mg/dL LAB CHEMISTRY METHOD 09/16/2024 11:36 AM [facility] LAB eGFR 49(L) >=60 mL/min/1. 73m2 LAB CHEMISTRY METHOD 09/16/2024 11:36 AM [facility] LAB Comment:Calculation based on the Chronic Kidney Disease Epidemiology Collaboration (CKD-EPI) equation refit without adjustment for race. BUN/Creatinine Ratio 10.4 LAB CHEMISTRY METHOD 09/16/2024 11:36 AM [facility] LAB Calcium 8.6 8.5 - 10.5 mg/dL LAB CHEMISTRY METHOD 09/16/2024 11:36 AM T [facility] LAB Blood Venous blood specimen / Unknown Venipuncture / Unknown 09/16/2024 6:47 AM EDT 09/16/2024 10:10 AM EDT us Stephanie Celis MD LAB BLOOD ORDERABLES Fin al Result [facility] LAB [address] [place] [address], [place] [phone] * (ABNORMAL) Complete blood count (09/16/2024 6:47 AM EDT) WBC 2.1(L) 4.8 - 10.8 K/mcL LAB HEMETOLOGY METHOD 09/16/2024 11:08 AM [facility] LAB RBC 2.70(L) 3.80 - 4.80 M/mcL LAB HEMETOLOGY METHOD 09/16/2024 11:08 AM [facility] LAB Hemoglobin 10.1(L) 11.5 - 16.0 g/dL LAB HEMETOLOGY METHOD 09/16/2024 11:08 AM [facility] LAB Hematocrit 31.0(L) 35.0 - 47.0 % LAB HEMETOLOGY METHOD 09/16/2024 11:08 AM [facility] LAB MCV 116.1(H) 79.0 - 98.0 FL LAB HEMETOLOGY METHOD 09/16/2024 11:08 AM [facility] LAB MCH 37.8(H) 27.0 - 32.0 pcg LAB HEMETOLOGY METHOD 09/16/2024 11:08 AM [facility] LAB MCHC 32.6 32.0 - 37.0 g/dL LAB HEMETOLOGY METHOD 09/16/2024 11:08 AM [facility] LAB RDW 13.3 11.0 - 15.0 % LAB HEMETOLOGY METHOD 09/16/2024 11:08 AM EDT [facility] LAB Platelets 68(L) 130 - 400 K/mcL LAB HEMETOLOGY METHOD 09/16/2024 11:08 AM EDT [facility] LAB Comment:previously verified by slide MPV 9.1 7.0 - 11.0 FL LAB HEMETOLOGY METHOD 09/16/2024 11:08 AM EDT [facility] LAB NRBC 1.0(H) <1.0 % LAB HEMETOLOGY METHOD 09/16/2024 11:08 AM EDT [facility] LAB NRBC Absolute 0.02 <0.10 K/mcL LAB HEMETOLOGY METHOD 09/16/2024 11:08 AM EDT [facility] LAB Blood Venous blood specimen / Unknown Venipuncture / Unknown 09/16/2024 6:47 AM EDT 09/16/2024 10:10 AM EDT us Stephanie Celis MD LAB BLOOD ORDERABLES Fin al Result [facility] LAB [address] [place] [address], documented in this encounter Visit Diagnoses Diagnosis Hyperlipidemia, unspecified Unspecified cirrhosis of liver (CMS/HCC V24, CMS/HCC V28) Chronic kidney disease, stage 3 unspecified (CMS/HCC V24, CMS/HCC V28) documented in this encounter Care Teams Tool And Die Manager Relationship Specialty Start Date End Date Nina Lindsay NP [address] [place] [phone] PCP - General 10/07/23 documented as of this encounter
--- OUTSIDE RECORDS SUMMARY | 2025-04-06 10:47 | XMS_ITS | Encounter Summary ---
Author Organization [facility] Address [address] [place] [address] Care Team Providers Care Warehouse Shift Supervisor Name Role Phone Neftali Nina Marsh NP Primary Care Provider [phone] Encounter Details Date Type Department Care Team (Late st Contact Info) Description 07/27/2024 Lab Requisition [facility] Lab 299 [facility] [place] [address] Stephanie Celis MD [address] [phone] Vitamin D deficiency, unspecified; Chronic kidney disease, [...] AM EDT Office Visit Orthopedic Surgery - [place] 250 175 [facility] 250 [place] [phone] Ulices Crowell, DPSwati [address] [address] documented as of this encounter Procedures Procedure [...] LAB CHEMISTRY METHOD 07/27/2024 2:34 PM EST [facility] LAB Blood Venous blood specimen / Unknown Venipuncture / Unknown 07/27/2024 5:39 AM EST 07/27/2024 12:17 PM EST Stephanie Celis MD LAB BLOOD ORDERABLES Fin al Result [facility] LAB 299 [place] [address], [place] [phone] * Vitamin D 25 hydroxy (07/27/2024 5:39 AM EST) Pathologist [facility] Vit D, 25-Hydroxy 55.9 30.0 - 80.0 ng/mL LAB CHEMISTRY METHOD 07/27/2024 2:19 PM EST [facility] LAB Blood Venous blood specimen / Unknown Venipuncture / Unknown 07/27/2024 5:39 AM EST 07/27/2024 12:17 PM EST Stephanie Celis MD LAB BLOOD ORDERABLES Fin al Result [facility] LAB [address] [place] [address], [place] [phone] * Magnesium (07/27/2024 5:39 AM EST) Pathologist [facility] Magnesium 2.5 1.9 - 2.6 mg/dL LAB CHEMISTRY METHOD 07/27/2024 2:12 PM EST [facility] LAB Blood Venous blood specimen / Unknown Venipuncture / Unknown 07/27/2024 5:39 AM EST 07/27/2024 12:17 PM EST Stephanie Celis MD LAB BLOOD ORDERABLES Fin al Result Performing Organization Address City/[facility]/ZIP Co de Phone Number [facility] LAB [address] [place] [address], [place] [phone] * (ABNORMAL) Folate (07/27/2024 5:39 AM EST) Folate >20.0(H) 2.8 - 17.0 ng/ml LAB CHEMISTRY METHOD 07/27/2024 2:34 PM EST [facility] LAB Blood Venous blood specimen / Unknown Venipuncture / Unknown 07/27/2024 5:39 AM EST 07/27/2024 12:17 PM EST Stephanie Celis MD LAB BLOOD ORDERABLES Fin al Result Performing Organization Address [facility]/ZIP Co de Phone Number [facility] LAB [address] [place] [address], [place] [phone] * (ABNORMAL) Thyroid stimulating hormone (07/27/2024 5:39 AM EST) TSH 5.52(H) 0.40 - 4.00 mcIU/mL LAB CHEMISTRY METHOD 07/27/2024 2:19 PM EST [facility] LAB Blood Venous blood specimen / Unknown Venipuncture / Unknown 07/27/2024 5:39 AM EST 07/27/2024 12:17 PM EST Stephanie Cleis MD LAB BLOOD ORDERABLES Fin al Result Performing Organization Address City/[facility]/ZIP Co de Phone Number [facility] LAB [address] [place] [address], [place] [phone] * (ABNORMAL) Comprehensive metabolic panel (07/27/2024 5:39 AM EST) Sodium 138 133 - 145 mmol/L LAB CHEMISTRY METHOD 07/27/2024 2:12 PM EST [facility] Potassium 4.3 3.5 - 5.5 mmol/L LAB CHEMISTRY METHOD 07/27/2024 2:12 PM [facility] Chloride 102 96 - 110 mmol/L LAB CHEMISTRY METHOD 07/27/2024 2:12 PM [facility] LAB CO2 30 21 - 32 [...] PM [facility] LAB Comment:Calculation based on the Chronic [...] LAB CHEMISTRY METHOD 07/27/2024 2:12 PM EST [facility] Albumin 2.7(L) 3.2 - 5.0 g/dL LAB CHEMISTRY METHOD 07/27/2024 2:12 PM [facility] Total Bilirubin 0.6 0.0 - 1.4 mg/dL LAB CHEMISTRY METHOD 07/27/2024 2:12 PM [facility] Blood Venous blood specimen / Unknown Venipuncture / Unknown 07/27/2024 5:39 AM EST 07/27/2024 12:17 PM EST us Stephanie Celis MD LAB BLOOD ORDERABLES Fin al Result [facility] LAB [address] [place] [address], * (ABNORMAL) Complete blood count (07/27/2024 5:39 [...] LAB HEMETOLOGY METHOD 07/27/2024 1:38 PM EST [facility] LAB MCHC 32.2 32.0 - 37.0 g/dL LAB HEMETOLOGY METHOD 07/27/2024 1:38 PM [facility] LAB RDW 12.6 11.0 - 15.0 % LAB HEMETOLOGY METHOD 07/27/2024 1:38 PM [facility] LAB Platelets 150 130 - 400 K/mcL LAB HEMETOLOGY METHOD 07/27/2024 1:38 PM [facility] LAB MPV 9.4 7.0 - 11.0 FL LAB HEMETOLOGY METHOD 07/27/2024 1:38 PM [facility] LAB NRBC 0.0 <1.0 % LAB HEMETOLOGY METHOD 07/27/2024 1:38 PM [facility] LAB NRBC Absolute 0.00 <0.10 K/mcL LAB HEMETOLOGY METHOD 07/27/2024 1:38 PM [facility] Blood Venous blood specimen / Unknown Venipuncture / Unknown 07/27/2024 5:39 AM EST 07/27/2024 12:17 PM EST us Stephanie Celis MD LAB BLOOD ORDERABLES Fin al Result [facility] LAB [address] [place] [address], documented in this encounter Visit Diagnoses Diagnosis [...] to a substance or known physiological condition ([facility] V[facility], [facility] V28) Human immunodeficiency virus (HIV) disease ([facility] V24, [facility] V28) Human immunodeficiency virus [HIV] disease Hypothyroidism, unspecified COVID-19 documented in this encounter Care Teams Warehouse Shift Supervisor Relationship Specialty Start Date End Date Nina Lindsay NP [address] [place] [phone] PCP - General 10/07/23 documented as of this encounter
--- OUTSIDE RECORDS SUMMARY | 2025-04-06 10:47 | XMS_ITS | Encounter Summary ---
Author Organization [facility] Address [address] [place] [phone] Care Team Providers Care Senior Report Developer Name Role Phone Neftali Nina Marsh NP Primary Care Provider [phone] Encounter Details Date Type Department Care Team (Late st Contact Info) Description 08/25/2024 Lab Requisition [facility] - Main Lab 299 [facility] [place] [address] Stephanie Celis MD [address] [address] Encounter for therapeutic drug level monitoring Social [...] AM EDT Office Visit Orthopedic Surgery - [place] 250 175 [facility] 250 [place] [phone] Ulices Crowell DPM 175 [facility] 250 [place] [address] documented as of this encounter Procedures Procedure Name Priority Date/Time Associated Diagnosis Comments VALPROIC ACID LEVEL, TOTAL Routine 08/25/2024 7:32 AM EST Encounter for therapeutic drug level monitoring documented in this encounter Results * Valproic acid level, total (08/25/2024 7:32 AM EST) Valproic Acid, Total 99 50 - 100 mcg/mL LAB CHEMISTRY METHOD 08/25/2024 12:36 PM EST [facility] LAB Blood Venous blood specimen / Unknown Venipuncture / Unknown 08/25/2024 7:32 AM EST 08/25/2024 9:16 AM EST us Stephanie Celis MD LAB BLOOD ORDERABLES Fin al Result [facility] ([email or web address] LAB 299 [place] [address], documented in this encounter Visit Diagnoses Diagnosis Encounter for therapeutic drug level monitoring documented in this encounter Care Teams Senior Report Developer Relationship Specialty Start Date End Date Nina Lindsay NP [address] [place] [phone] PCP - General 10/07/23 documented as of this encounter
--- OUTSIDE RECORDS SUMMARY | 2025-04-06 10:47 | XMS_ITS | Encounter Summary ---
Author Organization [facility] Address [address] [place] [address] Care Team Providers Care Petroleum Engineer Name Role Phone LindsayNina Salma NGUYEN Primary Care Provider [phone] Encounter Details Date Type Department Care Team (Late st Contact Info) Description 09/22/[address] [facility] - Main Lab 299 [facility] [place] [address] Stephanie Celis MD [address] [address] Other drug-induced pancytopenia (CMS/HCC V24); Chronic kidney [...] AM EDT Office Visit Orthopedic Surgery - [place] 250 175 [facility] 250 [place] [phone] Ulices Crowell, DPSwati [address] [address] documented as of this encounter Procedures Procedure [...] mmol/L LAB CHEMISTRY METHOD 09/22/2024 10:05 AM [facility] LAB Potassium 4.0 3.5 - 5.5 mmol/L LAB CHEMISTRY METHOD 09/22/2024 10:05 AM [facility] LAB Chloride 103 96 - 110 mmol/L LAB CHEMISTRY METHOD 09/22/2024 10:05 AM [facility] LAB CO2 27 21 - 32 mmol/L LAB CHEMISTRY METHOD 09/22/2024 10:05 AM [facility] LAB Anion Gap 8 3 - 11 LAB CHEMISTRY METHOD 09/22/2024 10:05 AM [facility] LAB Glucose 105(H) 70 - 100 mg/dL LAB CHEMISTRY METHOD 09/22/2024 10:05 AM [facility] LAB BUN 15 5 - 25 mg/dL LAB CHEMISTRY METHOD 09/22/2024 10:05 AM [facility] LAB Creatinine 1.15(H) 0.50 - 1.10 mg/dL LAB CHEMISTRY METHOD 09/22/2024 10:05 AM [facility] LAB eGFR 54(L) >=60 mL/min/1. 73m2 LAB CHEMISTRY METHOD 09/22/2024 10:05 AM [facility] LAB Comment:Calculation based on the Chronic Kidney Disease Epidemiology Collaboration (CKD-EPI) equation refit without adjustment for race. BUN/Creatinine Ratio 13.0 LAB CHEMISTRY METHOD 09/22/2024 10:05 AM [facility] LAB Calcium 8.9 8.5 - 10.5 mg/dL LAB CHEMISTRY METHOD 09/22/2024 10:05 AM EDT [facility] LAB Blood Venous blood specimen / Unknown Venipuncture / Unknown 09/22/2024 7:02 AM EDT 09/22/2024 8:33 AM EDT us Stephanie Celis MD LAB BLOOD ORDERABLES Fin al Result [facility] LAB [address] [place] [address], * (ABNORMAL) Complete blood count (09/22/2024 7:02 AM EDT) WBC 2.2(L) 4.8 - 10.8 K/mcL LAB HEMETOLOGY METHOD 09/22/2024 10:32 [facility] RBC 2.80(L) 3.80 - 4.80 M/mcL LAB HEMETOLOGY METHOD 09/22/2024 10:32 AM EDT [facility] Hemoglobin 10.5(L) 11.5 - 16.0 g/dL LAB HEMETOLOGY METHOD 09/22/2024 10:32 AM [facility] LAB Hematocrit 30.9(L) 35.0 - 47.0 % LAB HEMETOLOGY METHOD 09/22/2024 10:32 AM [facility] LAB MCV 110.4(H) 79.0 - 98.0 FL LAB HEMETOLOGY METHOD 09/22/2024 10:32 AM EDT [facility] MCH 37.5(H) 27.0 - 32.0 pcg LAB HEMETOLOGY METHOD 09/22/2024 10:32 AM EDT [facility] MCHC 34.0 32.0 - 37.0 g/dL LAB HEMETOLOGY METHOD 09/22/2024 10:32 [facility] RDW 13.2 11.0 - 15.0 % LAB HEMETOLOGY METHOD 09/22/2024 10:32 AM EDT [facility] Platelets 66(L) 130 - 400 K/mcL LAB HEMETOLOGY METHOD 09/22/2024 10:32 AM EDT [facility] LAB Comment:previously verified by slide MPV 9.2 7.0 - 11.0 FL LAB HEMETOLOGY METHOD 09/22/2024 10:32 AM EDT [facility] NRBC 0.0 <1.0 % LAB [facility] 09/22/2024 10:32 AM EDT [facility] NRBC Absolute 0.00 <0.10 K/mcL LAB [facility] 09/22/2024 10:32 AM EDT [facility] Blood Venous blood specimen / Unknown Venipuncture / Unknown 09/22/2024 7:02 AM EDT 09/22/2024 8:33 AM EDT us Stephanie Celis MD LAB BLOOD ORDERABLES Fin al Result [facility] LAB [address] [place] [address], documented in this encounter Visit Diagnoses Diagnosis 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
--- OUTSIDE RECORDS SUMMARY | 2025-04-06 10:47 | XMS_ITS | Encounter Summary ---
Author Organization [facility] Address [address] [place] [address] Care Team Providers Care Perioperative Educator Name Role Phone LindsayNina Salma NGUYEN Primary Care Provider Encounter Details Date Type Department Care Team (Late st Contact Info) Description 08/11/2024 Lab Requisition [facility] - Main Lab 299 [facility] [place] [address] Stephanie Celis MD [address] [address] Altered mental status, unspecified Social History Tobacco [...] AM EDT Office Visit Orthopedic Surgery - [place] 250 175 [facility] 250 [place] [address] Ulices Crowell DPM [address] [address] documented as of this encounter Procedures Procedure [...] reflex microscopic (08/10/2024 2:00 PM EST) Specific [place] Urine 1.019 1.003 - 1.030 LAB URINALYSIS [...] - AUTOMATED METHOD 08/11/2024 11:48 AM EST [facility] Squamous Epithelial, Urine 12 0 [...] MD LAB URINE ORDERABLES Fin al Result [facility] 299 [place] [address], * (ABNORMAL) Culture urine (08/10/2024 2:00 PM EST) Culture, Urine >100,000 CFU/mL Klebsiella pneumoniae ssp pneumoniae(A) SAVANA 08/13/2024 10:17 AM EST [facility] Comment: This is an edited [...] us Stephanie Celis MD LAB MICROBIOLOGY - [facility] AL ORDERABLES Final Result [facility]) [facility] 299 [place] [address], documented in this encounter Visit Diagnoses Diagnosis Altered mental status, unspecified documented in this encounter Care Teams Perioperative Educator Relationship Specialty Start Date End Date Nina Lindsay NP [address] [place] [phone] PCP - General 10/07/23 documented as of this encounter
--- OUTSIDE RECORDS SUMMARY | 2025-04-06 10:47 | XMS_ITS | Encounter Summary ---
Author Organization [facility] Address [address] [place] [address] Care Team Providers Care Mask Design Engineer Name Role Phone Neftali Nina Marsh NP Primary Care Provider [phone] Encounter Details Date Type Department Care Team (Late st Contact Info) Description 08/20/[address] [facility] Lab 299 [facility] [place] [address] Stephanie Celis MD [address] [address] Acute kidney failure, unspecified (CMS/HCC V24); Chronic [...] AM EDT Office Visit Orthopedic Surgery - [place] [address] [phone] Ulices Crowell DPM [address] [address] documented as of this encounter Procedures Procedure [...] (ABNORMAL) Ammonia (08/20/2024 7:52 AM EST) Pathologist [facility] Ammonia 50(H) 11 - 35 mcmol/L LAB CHEMISTRY METHOD 08/20/2024 9:05 AM EST [facility] Blood Venous blood specimen / Unknown Venipuncture / Unknown 08/20/2024 7:52 AM EST 08/20/2024 8:36 AM EST Stephanie Celis MD LAB BLOOD ORDERABLES Fin al Result [facility] LAB [address] [place] [address], * (ABNORMAL) Comprehensive metabolic panel (08/20/2024 7:52 AM EST) Pathologist [facility] Sodium 139 133 - 145 mmol/L LAB CHEMISTRY METHOD 08/20/2024 9:44 AM EST [facility] Potassium 4.2 3.5 - 5.5 mmol/L LAB CHEMISTRY METHOD 08/20/2024 9:44 AM EST [facility] Chloride 104 96 - 110 mmol/L LAB CHEMISTRY METHOD 08/20/2024 9:44 AM EST [facility] CO2 31 21 - [...] al Result [facility] [address] [place] [address], * (ABNORMAL) Complete blood count (08/20/2024 7:52 AM EST) WBC 2.6(L) 4.8 - 10.8 K/mcL LAB HEMETOLOGY METHOD 08/20/2024 9:31 AM [facility] LAB RBC 2.70(L) 3.80 - 4.80 M/mcL LAB HEMETOLOGY METHOD 08/20/2024 9:31 AM [facility] LAB Hemoglobin 10.2(L) 11.5 - 16.0 g/dL LAB HEMETOLOGY METHOD 08/20/2024 9:31 AM [facility] LAB Hematocrit 31.1(L) 35.0 - 47.0 % LAB HEMETOLOGY METHOD 08/20/2024 9:31 AM [facility] LAB MCV 116.0(H) 79.0 - 98.0 FL LAB HEMETOLOGY METHOD 08/20/2024 9:31 AM [facility] LAB MCH 38.1(H) 27.0 - 32.0 pcg LAB HEMETOLOGY METHOD 08/20/2024 9:31 AM [facility] LAB MCHC 32.8 32.0 - 37.0 g/dL LAB HEMETOLOGY METHOD 08/20/2024 9:31 AM [facility] LAB RDW 13.2 11.0 - 15.0 % LAB HEMETOLOGY METHOD 08/20/2024 9:31 AM EST [facility] Platelets 46(L) 130 - 400 K/mcL LAB HEMETOLOGY METHOD 08/20/2024 9:31 AM EST [facility] LAB Comment:previously verified by slide MPV 9.4 7.0 - 11.0 FL LAB HEMETOLOGY METHOD 08/20/2024 9:31 AM EST [facility] NRBC 0.0 <1.0 % LAB HEMETOLOGY METHOD 08/20/2024 9:31 AM EST [facility] NRBC Absolute 0.00 <0.10 K/mcL LAB HEMETOLOGY METHOD 08/20/2024 9:31 AM EST [facility] Blood Venous blood specimen / Unknown Venipuncture / Unknown 08/20/2024 7:52 AM EST 08/20/2024 8:36 AM EST us Stephanie Celis MD LAB BLOOD ORDERABLES Fin al Result [facility] 299 [place] [address], documented in this encounter Visit Diagnoses Diagnosis Acute kidney failure, unspecified (CMS/HCC V24) Acute kidney failure, unspecified Chronic kidney disease, stage 3 unspecified (CMS/HCC V24, CMS/HCC V28) Human immunodeficiency virus (HIV) disease (CMS/HCC V24, CMS/HCC V28) Human immunodeficiency virus [HIV] disease documented in this encounter Care Teams Mask Design Engineer Relationship Specialty Start Date End Date Nina Lindsay NP [address] [place] [phone] PCP - General 10/07/23 documented as of this encounter
== END 2025-04-06 09:54 | disposition home or self-care (01) ==
LOC: HO.US 09:53
PROVIDERS: PCP Nurse Practitioner Primary Care; Visit Provider Internal Medicine Gastroenterology
DX: K74.60 Unspecified cirrhosis of liver (principal)
CPT/HCPCS: 76705; 76981

== ENCOUNTER → 2025-04-06 09:55 | Outpatient (BNV) | payer MEDICARE, MEDICAID, SELFPAY | PROVIDERS: PCP Nurse Practitioner Primary Care; Visit Provider Radiology Diagnostic Radiology | DX: R16.0 Hepatomegaly, not elsewhere classified (principal); K76.0 Fatty (change of) liver, not elsewhere classified | CPT/HCPCS: 76705 ==

== ENCOUNTER 2025-04-12 16:46 | Emergency (ER) | payer MEDICARE, MEDICAID, SELFPAY ==
--- NOTE | ~2025-04-12 | CT_ITS ---
CLINICAL HISTORY: Fall CT head without contrast Comparison: CT/SR - CT HEAD/BRAIN WO IV CON - 07/14/24 08:22 EST Findings: BRAIN: No acute infarct, hemorrhage, or mass effect. No abnormal atrophy. CSF SPACES: No hydrocephalus or effacement of basal cisterns. SKULL: No calvarial fracture. SINUSES: No significant mucosal thickening or effusion on limited views. ORBITS: Limited views are unremarkable. OTHER: Negative. IMPRESSION: 1. No acute intracranial findings. This document has been electronically signed by: Jess Taylor MD on 04/12/2025 20:16:16
--- NOTE | ~2025-04-12 | CT_ITS ---
CLINICAL HISTORY: Fall CT cervical spine without contrast Comparison: CT/RI/SR - CT CERVICAL SPINE WITHOUT IV CONTRAST - 06/24/2024 08:29 AM EST Findings: Straightening of the normal cervical lordosis. Multilevel degenerative endplate changes of the cervical spine. No high-grade spinal stenosis. No acute fractures or dislocations. Visualized intracranial contents are unremarkable. Soft tissues of the neck are normal. Lung apices are clear. IMPRESSION: No acute traumatic abnormality in the cervical spine. This document has been electronically signed by: Jess Taylor MD on 04/12/2025 20:36:26
--- NOTE | ~2025-04-12 | XR_ITS ---
EXAMINATION: XR FOREARM, RIGHT CLINICAL INFORMATION: x-rayed by mistake COMPARISON: None available. TECHNIQUE: AP and lateral views of the right forearm were obtained. FINDINGS: The bones and soft tissues are normal. No fracture. Imaged portions of the elbow and wrist are unremarkable. XR/XR forearm RT 2V IMPRESSION: Normal right forearm. Electronically signed by: Can Birch MD 04/23/2025 11:33 AM EDT
--- NOTE | ~2025-04-12 | XR_ITS ---
CLINICAL HISTORY: BRUISING 2 view left forearm Comparison: None provided Findings: No fractures or dislocations. No joint effusion. No significant arthritic change. No radiopaque foreign body. IMPRESSION: 1. No acute fracture. This document has been electronically signed by: Jess Taylor MD on 04/12/2025 19:16:57
[2025-04-12 17:03] VITALS: BP 115/66; PULSE 83; RESP 16; TEMP 36.3; O2SAT 96; BMI 31.0
--- NOTE | 2025-04-12 17:22 | ED.GENADULT ---
HPI - General Adult General Chief complaint: Fall Stated complaint: SI, fell 2x's, ? UTI Time Seen by Provider: 04/12/25 18:58 Source: patient, EMS and other (nursing home staff) Mode of arrival: EMS History of Present Illness ED Provider: Dr. Shyann Trevizo HPI narrative: Patient comes to the emergency room accompanied by half-way staff. According to the patient, 2 days ago patient had multiple falls. Patient states that the 1st 2 falls she mostly slid out of bed and landed on her buttocks. However, patient states that the following falls, she hit the lower part of her back. Patient denies loss of consciousness. According to the half-way staff, all these falls were unwitnessed. According to the half-way staff, the patient has become lately more paranoid, has worsening accusatory behavior and increased auditory hallucinations, responding to internal stimuli. Patient denies SI or HI. Related Data Home Medications ?Medication ?Instructions ?Recorded ?Confirmed acetaminophen 500 mg tablet 500 mg PO Q6H PRN Pain 01/31/21 04/05/25 bictegravir 50 mg-emtricitabine 1 tab PO DAILY 01/31/21 04/05/25 200 mg-tenofovir alafenam 25 mg tablet (Biktarvy) calcium 600 mg (as 1 tab PO BID 01/31/21 04/05/25 carbonate)-vitamin D3 10 mcg (400 unit) tablet (Calcium 600 + D(3)) folic acid 1 mg tablet 1 mg PO DAILY 01/31/21 04/05/25 albuterol sulfate 90 mcg/actuation 2 puff inhalation Q4H PRN Wheezing 03/23/21 04/05/25 aerosol inhaler simethicone 80 mg chewable tablet 80 mg PO TID 05/09/23 04/05/25 sertraline 100 mg tablet 100 mg PO DAILY 05/16/23 04/05/25 wheat dextrin 3 gram/4 gram oral 1 packet PO BID 05/16/23 04/05/25 powder (Benefiber Sugar Free (dextrin)) cyanocobalamin (vitamin B-12) 50 50 mcg PO DAILY 07/14/24 04/05/25 mcg tablet (Vitamin B-12) levothyroxine 75 mcg tablet 75 mcg PO DAILY@0600 07/14/24 04/05/25 sodium chloride 0.65 % nasal spray 1 spray intranasal BID 07/14/24 04/05/25 aerosol (Saline Nasal) midodrine 5 mg tablet 5 mg PO TID 12/29/24 04/05/25 atorvastatin 20 mg tablet (Lipitor) 20 mg PO DAILY 03/23/25 04/05/25 divalproex 500 mg tablet,extended 750 mg PO BEDTIME 03/23/25 04/05/25 release 24 hr loperamide 2 mg tablet 4 mg PO Q6H PRN 03/23/25 04/05/25 trazodone 100 mg tablet 100 mg PO BEDTIME 03/23/25 04/05/25 valacyclovir 500 mg tablet 500 mg PO BID 03/23/25 04/05/25 (Valtrex) divalproex 250 mg tablet,extended 750 mg PO ONCE 04/05/25 04/05/25 release 24 hr Previous Rx's ?Medication ?Instructions ?Recorded quetiapine 200 mg tablet 200 mg PO TID 30 days #90 tabs 06/03/23 omeprazole 20 mg capsule,delayed 20 mg PO QAM #30 caps 03/31/25 release sennosides 8.6 mg-docusate sodium 1 tab PO BID #60 tabs 03/31/25 50 mg tablet (Stimulant Laxative Plus) cefuroxime axetil 250 mg tablet 250 mg PO BID #14 tabs 04/13/25 Allergies Allergy/AdvReac Type Severity Reaction Status Date / Time abacavir (ABACAVIR) Allergy Severe HIVES Verified 03/23/25 11:35 hydrochlorothiazide Allergy Severe HIVES Verified 03/23/25 11:35 (HYDROCHLOROTHIAZIDE) ibuprofen (From MOTRIN) Allergy Severe HIVES Verified 03/23/25 11:35 Penicillins (PENICILLINS) Allergy Severe HIVES Verified 03/23/25 11:35 tenofovir (From VIREAD) Allergy Severe HIVES Verified 03/23/25 11:35 tomato (TOMATO) Allergy Severe HIVES Verified 03/23/25 11:35 zidovudine (From RETROVIR) Allergy Severe HIVES Verified 03/23/25 11:35 lactose (Lactose) AdvReac Mild DIARRHEA Verified 03/23/25 11:35 disoproxail Allergy Mild Unknown Uncoded 12/29/24 10:18 fumarate Allergy Unknown Uncoded 04/12/25 17:17 hydrovenzthiazide Allergy Unknown Uncoded 04/12/25 17:17 Review of Systems Review of Systems: Constitutional : No Weight loss, No Fever, No Chills, No Night Sweats, No Fatigue, No Malaise ENT/Mouth : No Hearing loss, No Ear Pain, No Nasal Congestion, No Sinus Pain, No Hoarseness, No sore throat, No Rhinorrhea, No Swallowing Difficulty Eyes: No Eye Pain, No Swelling, No Redness, No Foreign Body, No Discharge, No Vision Changes Cardiovascular : No Chest Pain, No SOB, No Dyspnea on Exertion, No Orthopnea, No Edema, No Palpitations Respiratory : No Cough, No Sputum, No Wheezing, No Smoke Exposure, No Dyspnea Gastrointestinal : No Nausea, No Vomiting, No Diarrhea, No Constipation, No abdominal Pain, No Hematochezia, No Melena Genitourinary : no irregular bleeding, No Dysuria, No Urinary Frequency, No Hematuria, No Urinary Incontinence, No Urgency, No Flank Pain, No Urinary Flow Changes, No Hesitancy Musculoskeletal : No joint pain, No Myalgias, No Joint Swelling Skin : Complaining of contusions in the arms, complaining of multiple falls Neuro : No Weakness, No Numbness, No Paresthesias, No Loss of Consciousness, No Dizziness, No Headache Psych : No Anxiety/Panic, No Depression, No SI/HI/AH/VH, half-way reports that the patient is responding to internal stimuli seems to be having more auditory hallucinations, acute story behavior, paranoid despite compliance with medications Heme/Lymph: No Bruising, No Bleeding,No Lymphadenopathy Endocrine : No Polyuria, No Polydipsia, No Temperature Intolerance PMFSH Past Medical History Medical History Tremor of both hands Positive serological reaction for syphilis Hypothyroidism Hx of acute pancreatitis Hx of acute renal failure History of ETOH abuse Hx of herpes genitalis History of diverticulosis Constipation History of intravenous drug abuse Developmental delay, mild COVID-19 vaccine series completed Depression PTSD (post-traumatic stress disorder) Hyperlipidemia Seasonal allergies Hx of hepatitis C HIV (human immunodeficiency virus infection) Nocturia Frequency of micturition Surgical History History of colonoscopy Family History Family History Mother Alzheimer disease Breast cancer HTN (hypertension) Paternal Aunt Breast cancer Social History Social History Household Members: None Household Members Other:: [employer] Housing: Apartment Housing Other:: Correction Are you a primary career and technology education teacher to a significant other at home: No Do you presently have visiting nurse or other home services: Yes Alcohol intake: never Patient Tobacco Use Status: Never used Tobacco e-Cigarette/Vaping Use: Never Used Second Hand Smoke Exposure: No service: No Sexual orientation: Decline to Answer Physical Exam ED Exam Exam: Appearance: Alert. Oriented X3. No acute distress. Eyes: Pupils equal, round and reactive to light. ENT: Pharynx normal. Neck: Normal inspection. Neck supple. No lymph nodes noted. No crepitus CVS: Normal heart rate and rhythm. Pulses normal. Normal S1 and S2 Respiratory: No respiratory distress. Breath sounds normal. No Wheezing. No rales Abdomen: Soft and nontender. No rigidity. No distention. Skin: Skin warm and dry. Normal skin color. Normal skin turgor. Extremities: No lower extremity edema. No Lacerations. No Rash Neuro: Oriented X 3. No motor deficit. No sensory deficit. Moving all extremities. No slurred speech. CN 2 through 12 grossly intact Psych: calm, cooperative, normal affect Vital Signs: Vital Signs - 24 hr 04/12/25 17:03 04/12/25 19:23 04/12/25 20:00 Temperature 97.4 F 98.2 F 97.7 F Pulse Rate 83 75 72 Respiratory Rate 16 17 16 Blood Pressure 115/66 126/71 135/66 Pulse Oximetry 96 100 97 Oxygen Delivery Method Room Air Room Air Room Air 04/12/25 22:38 04/13/25 02:11 Temperature 98.2 F 98.2 F Pulse Rate 73 73 Respiratory Rate 19 19 Blood Pressure 135/66 135/66 Pulse Oximetry 97 97 Oxygen Delivery Method Room Air Room Air BMI result Body Mass Index 31.0 Course Course Course Narrative: RME: Patient is sent by residency program due to increased auditory hallucination and accusatory behavior. Patient also has fallen twice complaining of left arm pain, dizziness, headache and right flank pain. As per half-way patient has slid onto her butt twice and unaware of patient's other symptoms. Patient well-appearing. Residency program wants the patient to be evaluated for UTI. Labs imagin ordered Medications Administered Discontinued Medications Generic Name Dose Route Start Last Admin Trade Name Lucia PRN Reason Stop Dose Admin Cefuroxime Axetil 250 mg 04/12/25 22:38 04/12/25 23:13 Cefuroxime Axetil 250 Mg Tablet PO 04/12/25 22:39 250 mg ONCE ONE Administration Medical Decision Making Medical Decision Making [facility] Narrative: My interpretation of labs: Patient's hematology is at baseline, no acute abnormality, no significant abnormality in patient's chemistry, creatinine slightly bumped at 1.43, p.o. fluids were encouraged, normal LFTs, lipase 32 a urinalysis positive for UTI, patient was given p.o. cefuroxime. I compared the patient's previous urinalysis microbiology reports, her urine looks similar to previous UTIs that she has had in the past. However, has not gotten into bacteria and has not did not. Given the uncertainty a longer having new symptoms, patient will be treated with p.o. antibiotics. Patient's troponin is requesting that she still gets a behavioral health possible. Physician observation started at 22:00 The care team evaluated the patient. Then spoke to the pump servicer supervisor and the patient's half-way. Seems that this is baseline behavior for Adrianne and believes that the UTI has been her symptoms slightly worse. Patient has already been started on antibiotics. The patient has been accepted back into the her half-way. We will provide transport Differential Diagnosis Differential Diagnoses: The differential diagnosis associated with the presentation includes (UTI, schizophrenia, bipolar disorder) Admission/Observation Consideration of admission/observation: Escalation of care including admission/observation considered (Patient is waiting to be seen by the care team to determine patient's disposition) Consult Healthcare Provider Management of the patient was discussed with: Behavioral Health Provider Lab Data [facility] Lab Attestation statement: I reviewed the patient's lab results. 04/12/25 18:08 04/12/25 18:07 Labs: Lab Results 04/12/25 04/12/25 04/12/25 Range/Units 18:07 18:08 21:07 WBC 4.5 L (4.8-10.8) X10*3/uL RBC 3.49 L (4.20-5.50) X10*6/uL Hgb 13.1 (12.0-16.0) g/dl Hct 37.6 (37.0-47.0) % MCV 107.7 H (80.0-98.0) fL MCH 37.5 H (27.0-33.0) pg MCHC 34.8 (31.0-35.0) g/dl RDW 12.6 (11.0-16.0) % Plt Count 88 L (160-400) X10*3/uL MPV 8.9 L (9.4-12.3) fL Immature Gran % (Auto) 0.2 (0.0-0.4) % Neut % (Auto) 50.8 (45-73) % Lymph % (Auto) 40.6 H (20-40) % [place] % (Auto) 7.8 (2-11) % Eos % (Auto) 0.4 (0-4) % Baso % (Auto) 0.2 (0-2) % Lymph # (Auto) 1.8 (1.2-4.9) X10*3/uL [place] # (Auto) 0.4 (0.1-1.2) X10*3/uL Eos # (Auto) 0.0 (0.0-0.4) X10*3/uL Baso # (Auto) 0.0 (0.0-0.2) X10*3/uL Abs Immat Gran (auto) 0.01 (0.00-0.03) X10*3/uL Absolute Neuts (auto) 2.3 (2.0-8.3) x10*3/uL Absolute Nucleated RBC 0.020 H (0.0-0.012) X10*3/uL Nucleated RBC % (auto) 0.4 H (0.0-0.2) /100WBC Sodium 138 (135-145) mmol/L Potassium 4.6 (3.3-5.1) mmol/L Chloride 101 (96-108) mmol/L Carbon Dioxide 29 (22-29) mmol/L Anion Gap 13 (12-20) BUN 21 H (9-16) mg/dL Creatinine 1.43 H (0.5-1.4) mg/dL Estim Creat Clear Calc 43.2 Estimated GFR 37 Random Glucose 106 (60-115) mg/dL Calcium 9.4 (8.4-10.2) mg/dL Total Bilirubin 0.5 (0.0-1.0) mg/dL AST 25 (5-31) U/L ALT 15 (0-31) U/L Alkaline Phosphatase 53 (39-117) U/L Ammonia 25 (13-55) umol/L Total Protein 7.5 (6.5-8.0) g/dL Albumin 4.5 (3.5-5.0) g/dL Lipase 32 (8-78) U/L Urine Color Yellow Urine Appearance Cloudy Urine pH 6.5 (5.0-9.0) Ur Specific [place] 1.010 (1.005-1.025) Urine Protein Trace (Neg-Trace) mg/dL Urine Glucose (UA) Negative (Negative) mg/dL Urine Ketones Negative (Negative) mg/dL Urine Blood Small (1+) H (Negative) Urine Nitrite Negative (Negative) Ur Leukocyte Esterase Large (3+) H (Negative) Urine RBC 6-10 H (0-2) /HPF Urine WBC >50 H (0-5) /HPF Ur Squamous Epith Cells 0-2 (0-2) /HPF Urine Bacteria 1+ (None Seen) Hyaline Casts 0-2 (0-2) /LPF Critical Care Time Critical Care Time Critical Care Time: Yes Total Critical Care Time: 35 Attestation: I have personally provided critical care time. Time includes review of lab data, radiology results, discussion with consultants, and monitoring for potential decompensation. Intervention performed as documented. Discharge Plan Discharge Clinical Impression: Multiple falls, UTI (urinary tract infection), Auditory hallucinations Patient Disposition: Home, Self-Care Instructions: Urinary Tract Infection in Women (ED) Additional Instructions: Please follow-up with your primary care physician tomorrow. If you have any worsening or new symptoms, please return to the emergency room or call 911 Start medication when available Prescriptions: New cefuroxime axetil 250 mg tablet 250 mg PO BID Qty: 14 0RF No Action omeprazole 20 mg capsule,delayed release(DR/EC) 20 mg PO QAM Qty: 30 0RF sennosides-docusate sodium [Stimulant Laxative Plus] 8.6-50 mg tablet 1 tab PO BID Qty: 60 0RF acetaminophen 500 mg Tablet 500 mg PO Q6H PRN (Reason: Pain) folic acid 1 mg Tablet 1 mg PO DAILY calcium carbonate-vitamin D3 [Calcium 600 + D(3)] 600 mg(1,500mg) -400 unit Tablet 1 tab PO BID Biktarvy 50-200-25 mg Tablet 1 tab PO DAILY Vitamin B-12 50 mcg Tablet 50 mcg PO DAILY Saline Nasal 0.65 % Aerosol,Oakes 1 spray INTRANASAL BID levothyroxine 75 mcg tablet 75 mcg PO DAILY@0600 divalproex 500 mg tablet extended release 24 hr 750 mg PO BEDTIME sertraline 100 mg tablet 100 mg PO DAILY Benefiber Sugar Free (dextrin) 3 gram/4 gram Powder 1 packet PO BID Rx Instructions: mix into at least 4 oz water or juice before administering quetiapine 200 mg Tablet 200 mg PO TID 30 Days Qty: 90 0RF albuterol sulfate 90 mcg/actuation HFA aerosol inhaler 2 puff inhalation Q4H PRN (Reason: Wheezing) simethicone 80 mg tablet,chewable 80 mg PO TID midodrine 5 mg tablet 5 mg PO TID divalproex 250 mg tablet extended release 24 hr 750 mg PO ONCE trazodone 100 mg tablet 100 mg PO BEDTIME atorvastatin [Lipitor] 20 mg tablet 20 mg PO DAILY loperamide 2 mg tablet 4 mg PO Q6H PRN valacyclovir [Valtrex] 500 mg tablet 500 mg PO BID Interventions: ED Discharge Assessment Last Done: 04/13/25 02:11 Discharge Date/Time: 04/13/25 02:12 Print Language: Panamanian
[2025-04-12 18:14] LABS: MANUAL DIFF FLAG NO
[2025-04-12 18:18] LABS: Hematocrit 37.6 % (37.0-47.0); Hemoglobin 13.1 g/dl (12.0-16.0); Imm Gran Abs Auto 0.01 X10*3/uL (0.00-0.03); Imm Gran Pct Auto 0.2 % (0.0-0.4); Lymphocytes Absolute Auto 1.8 X10*3/uL (1.2-4.9); Mean Corpuscular HGB Conc 34.8 g/dl (31.0-35.0); Mean Corpuscular Hemoglobin 37.5 pg (27.0-33.0); Mean Corpuscular Volume 107.7 fL (80.0-98.0); NRBC Abs Auto 0.020 X10*3/uL (0.0-0.012); NRBC Pct Auto 0.4 /100WBC (0.0-0.2); Red Blood Count 3.49 X10*6/uL (4.20-5.50); White Blood Count 4.5 X10*3/uL (4.8-10.8)
[2025-04-12 18:19] LABS: Platelet Count 88 X10*3/uL (160-400)
[2025-04-12 18:23] LABS: Ammonia 25 umol/L (13-55)
[2025-04-12 18:32] LABS: Alanine Aminotransferase 15 U/L (0-31); Albumin Level 4.5 g/dL (3.5-5.0); Alkaline Phosphatase 53 U/L (39-117); Anion Gap 13 (12-20); Aspartate Amino Transferase 25 U/L (5-31); Blood Urea Nitrogen 21 mg/dL (9-16); Calcium 9.4 mg/dL (8.4-10.2); Carbon Dioxide 29 mmol/L (22-29); Chloride 101 mmol/L (96-108); Creatinine Clr Calc Pharmacy 43.2; Estimated Glomerular Filt Rate 37; Lipase 32 U/L (8-78); Potassium 4.6 mmol/L (3.3-5.1); Sodium 138 mmol/L (135-145); Total Protein 7.5 g/dL (6.5-8.0)
--- OUTSIDE RECORDS SUMMARY | 2025-04-12 18:41 | XMS_ITS | Encounter Summary ---
Author Organization [facility] Address [address] [place] [address] Care Team Providers Care Block Feeder Name Role Phone LindsayNina Salma NGUYEN Primary Care Provider [phone] Encounter Details Date Type Department Care Team (Late st Contact Info) Description 08/23/2024 Lab Requisition [facility] - Main Lab [address] [facility] [place] [address] Stephanie Celis MD [address] [address] Hypothyroidism, unspecified; Hyperlipidemia, unspecified Social History Tobacco [...] AM EDT Office Visit Orthopedic Surgery - [place] [address] [address] Ulices Crowell, DPSwati [address] [address] documented as of this encounter Procedures Procedure Name Priority Date/Time Associated Diagnosis Comments COMPLETE BLOOD COUNT Routine 08/24/2024 6:57 AM EST Hypothyroidism, unspecified Hyperlipidemia, unspecified BASIC METABOLIC PANEL Routine 08/24/2024 6:57 AM EST Hypothyroidism, unspecified Hyperlipidemia, unspecified documented in this encounter Results * (ABNORMAL) Basic metabolic panel (08/24/2024 6:57 AM EST) Sodium 141 133 - 145 mmol/L LAB CHEMISTRY METHOD 08/24/2024 11:16 AM [facility] Potassium 3.2(L) 3.5 - 5.5 mmol/L LAB CHEMISTRY METHOD 08/24/2024 11:16 AM [facility] Chloride 105 96 - 110 mmol/L LAB CHEMISTRY METHOD 08/24/2024 11:16 AM [facility] CO2 26 21 - 32 mmol/L LAB CHEMISTRY METHOD 08/24/2024 11:16 AM [facility] Anion Gap 10 3 - 11 LAB CHEMISTRY METHOD 08/24/2024 11:16 AM [facility] Glucose 87 70 - 100 mg/dL LAB CHEMISTRY METHOD 08/24/2024 11:16 AM [facility] BUN 15 5 - 25 mg/dL LAB CHEMISTRY METHOD 08/24/2024 11:16 AM [facility] Creatinine 1.38(H) 0.50 - 1.10 mg/dL LAB CHEMISTRY METHOD 08/24/2024 11:16 AM [facility] eGFR 43(L) >=60 mL/min/1. 73m2 LAB CHEMISTRY METHOD 08/24/2024 11:16 AM [facility] Comment:Calculation based on the Chronic Kidney Disease Epidemiology Collaboration (CKD-EPI) equation refit without adjustment for race. BUN/Creatinine Ratio 10.9 LAB CHEMISTRY METHOD 08/24/2024 11:16 AM [facility] Calcium 8.5 8.5 - 10.5 mg/dL LAB CHEMISTRY METHOD 08/24/2024 11:16 AM [facility] Blood Venous blood specimen / Unknown Venipuncture / Unknown 08/24/2024 6:57 AM EST 08/24/2024 10:21 AM EST Stephanie Celis MD LAB BLOOD ORDERABLES Fin al Result [facility] [address] [place] [address], * (ABNORMAL) Complete blood count (08/24/2024 6:57 AM EST) WBC 2.4(L) 4.8 - 10.8 K/mcL LAB HEMETOLOGY METHOD 08/24/2024 10:58 AM [facility] RBC 2.70(L) 3.80 - 4.80 M/mcL LAB HEMETOLOGY METHOD 08/24/2024 10:58 AM [facility] Hemoglobin 10.1(L) 11.5 - 16.0 g/dL LAB HEMETOLOGY METHOD 08/24/2024 10:58 AM [facility] Hematocrit 31.4(L) 35.0 - 47.0 % LAB HEMETOLOGY METHOD 08/24/2024 10:58 AM [facility] MCV 118.0(H) 79.0 - 98.0 FL LAB HEMETOLOGY METHOD 08/24/2024 10:58 AM [facility] MCH 38.0(H) 27.0 - 32.0 pcg LAB HEMETOLOGY METHOD 08/24/2024 10:58 AM [facility] MCHC 32.2 32.0 - 37.0 g/dL LAB HEMETOLOGY METHOD 08/24/2024 10:58 AM [facility] RDW 13.5 11.0 - 15.0 % LAB HEMETOLOGY METHOD 08/24/2024 10:58 AM [facility] Platelets 33(L) 130 - 400 K/mcL LAB HEMETOLOGY METHOD 08/24/2024 10:58 AM [facility] Comment:previously verified by slide MPV 9.3 7.0 - 11.0 FL LAB HEMETOLOGY METHOD 08/24/2024 10:58 AM EST [facility] NRBC 0.0 <1.0 % LAB HEMETOLOGY METHOD 08/24/2024 10:58 AM EST [facility] NRBC Absolute 0.00 <0.10 K/mcL LAB HEMETOLOGY METHOD 08/24/2024 10:58 AM EST [facility] Blood Venous blood specimen / Unknown Venipuncture / Unknown 08/24/2024 6:57 AM EST 08/24/2024 10:21 AM EST us Stephanie Celis MD LAB BLOOD ORDERABLES Fin al Result [facility] [address] [place] [address], documented in this encounter Visit Diagnoses Diagnosis Hypothyroidism, unspecified Hyperlipidemia, unspecified documented in this encounter Care Teams Block Feeder Relationship Specialty Start Date End Date Nina Lindsay NP [address] [place] [id number] PCP - General 10/07/23 documented as of this encounter
--- OUTSIDE RECORDS SUMMARY | 2025-04-12 18:41 | XMS_ITS | Encounter Summary ---
Author Organization [facility] Address [address] [place] [address] Care Team Providers Care Manager Sound Name Role Phone Neftali Nina Marsh NP Primary Care Provider [phone] Encounter Details Date Type Department Care Team (Late st Contact Info) Description 07/27/2024 Lab Requisition [facility] Lab 299 [facility] [place] [address] Stephanie Celis MD [address] [phone] Vitamin D deficiency, unspecified; Chronic kidney disease, [...] AM EDT Office Visit Orthopedic Surgery - [place] 250 175 [facility] 250 [place] [phone] Ulices Crowell, DPSwati [address] [address] documented as of this encounter Procedures Procedure [...] LAB CHEMISTRY METHOD 07/27/2024 2:34 PM EST [facility] Blood Venous blood specimen / Unknown Venipuncture / Unknown 07/27/2024 5:39 AM EST 07/27/2024 12:17 PM EST Stephanie Celis MD LAB BLOOD ORDERABLES Fin al Result [facility] [address] [place] [address], [place] [phone] * Vitamin D 25 hydroxy (07/27/2024 5:39 AM EST) Pathologist [facility] Vit D, 25-Hydroxy 55.9 30.0 - 80.0 ng/mL LAB CHEMISTRY METHOD 07/27/2024 2:19 PM EST [facility] Blood Venous blood specimen / Unknown Venipuncture / Unknown 07/27/2024 5:39 AM EST 07/27/2024 12:17 PM EST Stephanie Celis MD LAB BLOOD ORDERABLES Fin al Result [facility] [address] [place] [address], [place] [phone] * Magnesium (07/27/2024 5:39 AM EST) Pathologist [facility] Magnesium 2.5 1.9 - 2.6 mg/dL LAB CHEMISTRY METHOD 07/27/2024 2:12 PM EST [facility] Blood Venous blood specimen / Unknown Venipuncture / Unknown 07/27/2024 5:39 AM EST 07/27/2024 12:17 PM EST Stephanie Celis MD LAB BLOOD ORDERABLES Fin al Result Performing Organization Address City/[facility]/ZIP Co de Phone Number [facility] [address] [place] [address], [place] [phone] * (ABNORMAL) Folate (07/27/2024 5:39 AM EST) Folate >20.0(H) 2.8 - 17.0 ng/ml LAB CHEMISTRY METHOD 07/27/2024 2:34 PM EST [facility] Blood Venous blood specimen / Unknown Venipuncture / Unknown 07/27/2024 5:39 AM EST 07/27/2024 12:17 PM EST Stephanie Celis MD LAB BLOOD ORDERABLES Fin al Result Performing Organization Address [facility]/ZIP Co de Phone Number [facility] [address] [place] [address], [place] [phone] * (ABNORMAL) Thyroid stimulating hormone (07/27/2024 5:39 AM EST) TSH 5.52(H) 0.40 - 4.00 mcIU/mL LAB CHEMISTRY METHOD 07/27/2024 2:19 PM EST [facility] Blood Venous blood specimen / Unknown Venipuncture / Unknown 07/27/2024 5:39 AM EST 07/27/2024 12:17 PM EST Stephanie Celis MD LAB BLOOD ORDERABLES Fin al Result Performing Organization Address City/[facility]/ZIP Co de Phone Number [facility] [address] [place] [address], [place] [phone] * (ABNORMAL) Comprehensive metabolic panel (07/27/2024 5:39 AM EST) Sodium 138 133 - 145 mmol/L LAB CHEMISTRY METHOD 07/27/2024 2:12 PM EST [facility] Potassium 4.3 3.5 - 5.5 mmol/L LAB CHEMISTRY METHOD 07/27/2024 2:12 PM [facility] Chloride 102 96 - 110 mmol/L LAB CHEMISTRY METHOD 07/27/2024 2:12 PM [facility] CO2 30 21 - 32 mmol/L LAB CHEMISTRY METHOD 07/27/2024 2:12 PM [facility] Anion Gap 6 3 - 11 LAB CHEMISTRY METHOD 07/27/2024 2:12 PM [facility] Glucose 115(H) 70 - 100 mg/dL LAB CHEMISTRY METHOD 07/27/2024 2:12 PM [facility] BUN 14 5 - 25 mg/dL LAB CHEMISTRY METHOD 07/27/2024 2:12 PM [facility] Creatinine 1.09 0.50 - 1.10 mg/dL LAB CHEMISTRY METHOD 07/27/2024 2:12 PM [facility] eGFR 58(L) >=60 mL/min/1. 73m2 LAB CHEMISTRY METHOD 07/27/2024 2:12 PM [facility] Comment:Calculation based on the Chronic Kidney Disease Epidemiology Collaboration (CKD-EPI) equation refit without adjustment for race. BUN/Creatinine Ratio 12.8 LAB CHEMISTRY METHOD 07/27/2024 2:12 PM [facility] Calcium 8.3(L) 8.5 - 10.5 mg/dL LAB CHEMISTRY METHOD 07/27/2024 2:12 PM [facility] AST (SGOT) 28 10 - 42 unit/L LAB CHEMISTRY METHOD 07/27/2024 2:12 PM [facility] ALT (SGPT) 14 10 - 60 unit/L LAB CHEMISTRY METHOD 07/27/2024 2:12 PM [facility] Alkaline Phosphatase 49 42 - 121 unit/L LAB CHEMISTRY METHOD 07/27/2024 2:12 PM [facility] Total Protein 6.4 6.0 - 8.0 g/dL LAB CHEMISTRY METHOD 07/27/2024 2:12 PM EST [facility] Albumin 2.7(L) 3.2 - 5.0 g/dL LAB CHEMISTRY METHOD 07/27/2024 2:12 PM [facility] Total Bilirubin 0.6 0.0 - 1.4 mg/dL LAB CHEMISTRY METHOD 07/27/2024 2:12 PM [facility] Blood Venous blood specimen / Unknown Venipuncture / Unknown 07/27/2024 5:39 AM EST 07/27/2024 12:17 PM EST us Stephanie Celis MD LAB BLOOD ORDERABLES Fin al Result [facility] [address] [place] [address], * (ABNORMAL) Complete blood count (07/27/2024 5:39 AM EST) WBC 3.4(L) 4.8 - 10.8 K/mcL LAB HEMETOLOGY METHOD 07/27/2024 1:38 PM [facility] RBC 2.50(L) 3.80 - 4.80 M/mcL LAB HEMETOLOGY METHOD 07/27/2024 1:38 PM [facility] Hemoglobin 10.0(L) 11.5 - 16.0 g/dL LAB HEMETOLOGY METHOD 07/27/2024 1:38 PM [facility] Hematocrit 31.1(L) 35.0 - 47.0 % LAB HEMETOLOGY METHOD 07/27/2024 1:38 PM [facility] MCV 122.4(H) 79.0 - 98.0 FL LAB HEMETOLOGY METHOD 07/27/2024 1:38 PM [facility] MCH 39.4(H) 27.0 - 32.0 pcg LAB HEMETOLOGY METHOD 07/27/2024 1:38 PM EST [facility] MCHC 32.2 32.0 - 37.0 g/dL LAB HEMETOLOGY METHOD 07/27/2024 1:38 PM [facility] RDW 12.6 11.0 - 15.0 % LAB HEMETOLOGY METHOD 07/27/2024 1:38 PM [facility] Platelets 150 130 - 400 K/mcL LAB HEMETOLOGY METHOD 07/27/2024 1:38 PM [facility] MPV 9.4 7.0 - 11.0 FL LAB HEMETOLOGY METHOD 07/27/2024 1:38 PM [facility] NRBC 0.0 <1.0 % LAB HEMETOLOGY METHOD 07/27/2024 1:38 PM [facility] NRBC Absolute 0.00 <0.10 K/mcL LAB HEMETOLOGY METHOD 07/27/2024 1:38 PM [facility] Blood Venous blood specimen / Unknown Venipuncture / Unknown 07/27/2024 5:39 AM EST 07/27/2024 12:17 PM EST us Stephanie Celis MD LAB BLOOD ORDERABLES Fin al Result [facility] [address] [place] [address], documented in this encounter Visit Diagnoses Diagnosis [...] a substance or known physiological condition ([facility] V24, [facility] V28) Human immunodeficiency virus (HIV) disease ([facility] V24, [facility] V28) Human immunodeficiency virus [HIV] disease Hypothyroidism, unspecified COVID-19 documented in this encounter Care Teams Manager Sound Relationship Specialty Start Date End Date Nina Lindsay NP [address] [place] [phone] PCP - General 10/07/23 documented as of this encounter
--- OUTSIDE RECORDS SUMMARY | 2025-04-12 18:41 | XMS_ITS | Encounter Summary ---
Author Organization [facility] Address [address] [place] [address] Care Team Providers Care Rn Registry Name Role Phone LindsayNina Salma NGUYEN Primary Care Provider [phone] Encounter Details Date Type Department Care Team (Late st Contact Info) Description 07/31/2024 Lab Requisition [facility] 299 [facility] [place] [address] Stephanie Celis MD [address] [address] Hyperlipidemia, unspecified; Hypothyroidism, unspecified Social History Tobacco [...] AM EDT Office Visit Orthopedic Surgery - [place] [address] [address] Ulices Crowell, DPSwati [address] [address] documented as of this encounter Procedures Procedure Name Priority Date/Time Associated Diagnosis Comments COMPLETE BLOOD COUNT Routine 08/03/2024 7:57 AM EST Hyperlipidemia, unspecified Hypothyroidism, unspecified BASIC METABOLIC PANEL Routine 08/03/2024 7:57 AM EST Hyperlipidemia, unspecified Hypothyroidism, unspecified documented in this encounter Results * (ABNORMAL) Basic metabolic panel (08/03/2024 7:57 AM EST) Sodium 138 133 - 145 mmol/L LAB CHEMISTRY METHOD 08/03/2024 12:20 PM [facility] Potassium 4.3 3.5 - 5.5 mmol/L LAB CHEMISTRY METHOD 08/03/2024 12:20 PM [facility] Chloride 104 96 - 110 mmol/L LAB CHEMISTRY METHOD 08/03/2024 12:20 PM [facility] CO2 28 21 - 32 mmol/L LAB CHEMISTRY METHOD 08/03/2024 12:20 PM [facility] Anion Gap 6 3 - 11 LAB CHEMISTRY METHOD 08/03/2024 12:20 PM [facility] Glucose 107(H) 70 - 100 mg/dL LAB CHEMISTRY METHOD 08/03/2024 12:20 PM [facility] BUN 14 5 - 25 mg/dL LAB CHEMISTRY METHOD 08/03/2024 12:20 PM [facility] Creatinine 1.23(H) 0.50 - 1.10 mg/dL LAB CHEMISTRY METHOD 08/03/2024 12:20 PM [facility] eGFR 50(L) >=60 mL/min/1. 73m2 LAB CHEMISTRY METHOD 08/03/2024 12:20 PM [facility] Comment:Calculation based on the Chronic Kidney Disease Epidemiology Collaboration (CKD-EPI) equation refit without adjustment for race. BUN/Creatinine Ratio 11.4 LAB CHEMISTRY METHOD 08/03/2024 12:20 PM [facility] Calcium 8.9 8.5 - 10.5 mg/dL LAB CHEMISTRY METHOD 08/03/2024 12:20 PM [facility] Blood Venous blood specimen / Unknown Venipuncture / Unknown 08/03/2024 7:57 AM EST 08/03/2024 11:09 AM EST Stephanie Celis MD LAB BLOOD ORDERABLES Fin al Result [facility] [address] [place] [address], * (ABNORMAL) Complete blood count (08/03/2024 7:57 AM EST) WBC 2.5(L) 4.8 - 10.8 K/mcL LAB HEMETOLOGY METHOD 08/03/2024 1:03 PM [facility] RBC 2.60(L) 3.80 - 4.80 M/mcL LAB HEMETOLOGY METHOD 08/03/2024 1:03 PM [facility] Hemoglobin 10.0(L) 11.5 - 16.0 g/dL LAB HEMETOLOGY METHOD 08/03/2024 1:03 PM [facility] Hematocrit 30.5(L) 35.0 - 47.0 % LAB HEMETOLOGY METHOD 08/03/2024 1:03 PM [facility] MCV 117.8(H) 79.0 - 98.0 FL LAB HEMETOLOGY METHOD 08/03/2024 1:03 PM [facility] MCH 38.6(H) 27.0 - 32.0 pcg LAB HEMETOLOGY METHOD 08/03/2024 1:03 PM [facility] MCHC 32.8 32.0 - 37.0 g/dL LAB HEMETOLOGY METHOD 08/03/2024 1:03 PM [facility] RDW 12.2 11.0 - 15.0 % LAB HEMETOLOGY METHOD 08/03/2024 1:03 PM [facility] Platelets 78(L) 130 - 400 K/mcL LAB HEMETOLOGY METHOD 08/03/2024 1:03 PM [facility] Comment:reviewed by slide MPV 9.6 7.0 - 11.0 FL LAB HEMETOLOGY METHOD 08/03/2024 1:03 PM EST [facility] NRBC 0.0 <1.0 % LAB HEMETOLOGY METHOD 08/03/2024 1:03 PM EST [facility] NRBC Absolute 0.00 <0.10 K/mcL LAB HEMETOLOGY METHOD 08/03/2024 1:03 PM EST [facility] Blood Venous blood specimen / Unknown Venipuncture / Unknown 08/03/2024 7:57 AM EST 08/03/2024 11:09 AM EST us Stephanie Celis MD LAB BLOOD ORDERABLES Fin al Result [facility] [address] [place] [address], documented in this encounter Visit Diagnoses Diagnosis Hyperlipidemia, unspecified Hypothyroidism, unspecified documented in this encounter Care Teams Rn Registry Relationship Specialty Start Date End Date Nina Lindsay NP [address] [phone] PCP - General 10/07/23 documented as of this encounter
--- OUTSIDE RECORDS SUMMARY | 2025-04-12 18:41 | XMS_ITS | Encounter Summary ---
Author Organization [facility] Address [address] [place] [address] Care Team Providers Care General Machine Operator Name Role Phone Neftali Nina Marsh NP Primary Care Provider [phone] Encounter Details Date Type Department Care Team (Late st Contact Info) Description 08/20/2024 Lab Requisition [facility] Lab 299 [facility] [place] [address] Stephanie Celis MD [address] [address] Acute kidney failure, unspecified (CMS/HCC V24); Chronic [...] AM EDT Office Visit Orthopedic Surgery - [place] [address] [address] Ulices Crowell DPM [address] [address] documented as of this encounter Procedures Procedure [...] (ABNORMAL) Ammonia (08/20/2024 7:52 AM EST) Pathologist [facility] Ammonia 50(H) 11 - 35 mcmol/L LAB CHEMISTRY METHOD 08/20/2024 9:05 AM EST [facility] Blood Venous blood specimen / Unknown Venipuncture / Unknown 08/20/2024 7:52 AM EST 08/20/2024 8:36 AM EST Stephanie Celis MD LAB BLOOD ORDERABLES Fin al Result [facility] [address] [place] [address], * (ABNORMAL) Comprehensive metabolic panel (08/20/2024 7:52 AM EST) Pathologist [facility] Sodium 139 133 - 145 mmol/L LAB CHEMISTRY METHOD 08/20/2024 9:44 AM EST [facility] Potassium 4.2 3.5 - 5.5 mmol/L LAB CHEMISTRY METHOD 08/20/2024 9:44 AM EST [facility] Chloride 104 96 - 110 mmol/L LAB CHEMISTRY METHOD 08/20/2024 9:44 AM EST [facility] CO2 31 21 - 32 mmol/L LAB CHEMISTRY METHOD 08/20/2024 9:44 AM [facility] Anion Gap 4 3 - 11 LAB CHEMISTRY METHOD 08/20/2024 9:44 AM [facility] Glucose 116(H) 70 - 100 mg/dL LAB CHEMISTRY METHOD 08/20/2024 9:44 AM [facility] BUN 14 5 - 25 mg/dL LAB CHEMISTRY METHOD 08/20/2024 9:44 AM [facility] Creatinine 1.54(H) 0.50 - 1.10 mg/dL LAB CHEMISTRY METHOD 08/20/2024 9:44 AM [facility] eGFR 38(L) >=60 mL/min/1. 73m2 LAB CHEMISTRY METHOD 08/20/2024 9:44 AM [facility] Comment:Calculation based on the Chronic Kidney Disease Epidemiology Collaboration (CKD-EPI) equation refit without adjustment for race. BUN/Creatinine Ratio 9.1 LAB CHEMISTRY METHOD 08/20/2024 9:44 AM [facility] Calcium 8.5 8.5 - 10.5 mg/dL LAB CHEMISTRY METHOD 08/20/2024 9:44 AM [facility] AST (SGOT) 22 10 - 42 unit/L LAB CHEMISTRY METHOD 08/20/2024 9:44 AM [facility] ALT (SGPT) 11 10 - 60 unit/L LAB CHEMISTRY METHOD 08/20/2024 9:44 AM [facility] Alkaline Phosphatase 38(L) 42 - 121 unit/L LAB CHEMISTRY METHOD 08/20/2024 9:44 AM [facility] Total Protein 5.9(L) 6.0 - 8.0 g/dL LAB CHEMISTRY METHOD 08/20/2024 9:44 AM [facility] Albumin 2.6(L) 3.2 - 5.0 g/dL LAB CHEMISTRY METHOD 08/20/2024 9:44 AM [facility] Total Bilirubin 0.6 0.0 - 1.4 mg/dL LAB CHEMISTRY METHOD 08/20/2024 9:44 AM [facility] Blood Venous blood specimen / Unknown Venipuncture / Unknown 08/20/2024 7:52 AM EST 08/20/2024 8:36 AM EST us Stephanie Celis MD LAB BLOOD ORDERABLES Fin al Result [facility] [address] [place] [address], * (ABNORMAL) Complete blood count (08/20/2024 7:52 AM EST) WBC 2.6(L) 4.8 - 10.8 K/mcL LAB HEMETOLOGY METHOD 08/20/2024 9:31 AM [facility] RBC 2.70(L) 3.80 - 4.80 M/mcL LAB HEMETOLOGY METHOD 08/20/2024 9:31 AM [facility] Hemoglobin 10.2(L) 11.5 - 16.0 g/dL LAB HEMETOLOGY METHOD 08/20/2024 9:31 AM [facility] Hematocrit 31.1(L) 35.0 - 47.0 % LAB HEMETOLOGY METHOD 08/20/2024 9:31 AM [facility] MCV 116.0(H) 79.0 - 98.0 FL LAB HEMETOLOGY METHOD 08/20/2024 9:31 AM [facility] MCH 38.1(H) 27.0 - 32.0 pcg LAB HEMETOLOGY METHOD 08/20/2024 9:31 AM [facility] MCHC 32.8 32.0 - 37.0 g/dL LAB HEMETOLOGY METHOD 08/20/2024 9:31 AM [facility] RDW 13.2 11.0 - 15.0 % LAB HEMETOLOGY METHOD 08/20/2024 9:31 AM EST [facility] Platelets 46(L) 130 - 400 K/mcL LAB HEMETOLOGY METHOD 08/20/2024 9:31 AM EST [facility] Comment:previously verified by [...] MD LAB BLOOD ORDERABLES Fin al Result [facility] [address] [place] [address], documented in this encounter Visit Diagnoses Diagnosis Acute kidney failure, unspecified (CMS/HCC V24) Acute kidney failure, unspecified Chronic kidney disease, stage 3 unspecified (CMS/HCC V24, CMS/HCC V28) Human immunodeficiency virus (HIV) disease (CMS/HCC V24, CMS/HCC V28) Human immunodeficiency virus [HIV] disease documented in this encounter Care Teams General Machine Operator Relationship Specialty Start Date End Date Nina Lindsay NP [address] [place] [phone] PCP - General 10/07/23 documented as of this encounter
--- OUTSIDE RECORDS SUMMARY | 2025-04-12 18:41 | XMS_ITS | Encounter Summary ---
Author Organization [facility] Address [address] [place] [address] Care Team Providers Care Supervisor Maintenance Name Role Phone Neftali Nina Marsh NP Primary Care Provider [phone] Encounter Details Date Type Department Care Team (Late st Contact Info) Description 09/29/2024 Lab Requisition [facility] Lab 299 [facility] [place] [address] Stephanie Celis MD [address] [address] Hyperlipidemia, unspecified; Unspecified cirrhosis of liver (CMS/HCC [...] AM EDT Office Visit Orthopedic Surgery - [place] [address] [phone] Ulices Crowell, TRACY [address] [address] documented as of this encounter Procedures Procedure Name Priority Date/Time Associated Diagnosis Comments COMPLETE BLOOD COUNT Routine 09/29/2024 8:28 AM EDT Hyperlipidemia, unspecified Unspecified cirrhosis of liver (CMS/HCC) Chronic kidney disease, stage 3 unspecified (CMS/HCC) documented in this encounter Results * (ABNORMAL) Complete blood count (09/29/2024 8:28 AM EDT) [facility] Signature WBC 4.0(L) 4.8 - 10.8 K/mcL LAB HEMETOLOGY METHOD 09/29/2024 10:51 AM [facility] RBC 3.50(L) 3.80 - 4.80 M/mcL LAB HEMETOLOGY METHOD 09/29/2024 10:51 AM EDT [facility] Hemoglobin 12.9 11.5 - 16.0 [...] LAB HEMETOLOGY METHOD 09/29/2024 10:51 AM EDT [facility] NRBC Absolute 0.00 <0.10 K/mcL LAB HEMETOLOGY METHOD 09/29/2024 10:51 AM EDT [facility] Blood Venous blood specimen / Unknown Venipuncture / Unknown 09/29/2024 8:28 AM EDT 09/29/2024 10:07 AM EDT us Stephanie Celis MD LAB BLOOD ORDERABLES Fin al Result [facility] [address] [place] [address], documented in this encounter Visit Diagnoses Diagnosis Hyperlipidemia, unspecified Unspecified cirrhosis of liver (CMS/HCC V24, CMS/HCC V28) Chronic kidney disease, stage 3 unspecified (CMS/HCC V24, CMS/HCC V28) documented in this encounter Care Teams Supervisor Maintenance Relationship Specialty Start Date End Date Nina Lindsay NP [address] [place] [phone] PCP - General 10/07/23 documented as of this encounter
--- OUTSIDE RECORDS SUMMARY | 2025-04-12 18:41 | XMS_ITS | Clinical Summary ---
Author Organization 175 [facility] Address [address] [place] [address] Phone Care Team Providers Care Wildlife Refuge Specialist Name Role Phone Nina Lindsay NP Primary Care Provider [phone] Allergies Active Allergy Reactions Criticality Noted Date [...] AM EDT Office Visit Orthopedic Surgery - [address] [address] Ulices Crowell DPM Pain in [...] AM EDT Office Visit Orthopedic Surgery - [place] 250 175 [facility] [address] [place] [phone] Ulices Crowell, TRACY 175 [facility] [place] [address] [place] [address] Health Maintenance Due Date Last Done Comments [...] Insurance MEDICARE [place]ICAID - [place] Care Teams Wildlife Refuge Specialist Relationship Specialty Start Date End Date Nina Lindsay NP [address] [place] [phone] PCP - General 10/07/23
--- OUTSIDE RECORDS SUMMARY | 2025-04-12 18:42 | XMS_ITS | Encounter Summary ---
Author Organization [facility] Address [address] [place] [address] Care Team Providers Care Hog Confinement System Manager Name Role Phone LindsayNina Salma NGUYEN Primary Care Provider [phone] Encounter Details Date Type Department Care Team (Late st Contact Info) Description 08/07/[address] [facility] - Main Lab 299 [facility] [place] [address] Stephanie Celis MD [address] [address] Hyperlipidemia, unspecified; Hypothyroidism, unspecified Social History Tobacco [...] AM EDT Office Visit Orthopedic Surgery - [place] [address] [address] Ulices Crowell, DPSwati [address] [address] documented as of this encounter Procedures Procedure Name Priority Date/Time Associated Diagnosis Comments COMPLETE BLOOD COUNT Routine 08/10/2024 8:44 AM EST Hyperlipidemia, unspecified Hypothyroidism, unspecified BASIC METABOLIC PANEL Routine 08/10/2024 8:44 AM EST Hyperlipidemia, unspecified Hypothyroidism, unspecified documented in this encounter Results * (ABNORMAL) Basic metabolic panel (08/10/2024 8:44 AM EST) Sodium 139 133 - 145 mmol/L LAB CHEMISTRY METHOD 08/10/2024 1:[address] [facility] Potassium 3.6 3.5 - 5.5 mmol/L LAB CHEMISTRY METHOD 08/10/2024 1:[address] [facility] Chloride 103 96 - 110 mmol/L LAB CHEMISTRY METHOD 08/10/2024 1:[address] [facility] CO2 29 21 - 32 mmol/L LAB CHEMISTRY METHOD 08/10/2024 1:[address] [facility] Anion Gap 7 3 - 11 LAB CHEMISTRY METHOD 08/10/2024 1:[address] [facility] Glucose 128(H) 70 - 100 mg/dL LAB CHEMISTRY METHOD 08/10/2024 1:[address] [facility] BUN 22 5 - 25 mg/dL LAB CHEMISTRY METHOD 08/10/2024 1:[address] [facility] Creatinine 1.37(H) 0.50 - 1.10 mg/dL LAB CHEMISTRY METHOD 08/10/2024 1:[address] [facility] eGFR 44(L) >=60 mL/min/1. 73m2 LAB CHEMISTRY METHOD 08/10/2024 1:[address] [facility] Comment:Calculation based on the Chronic Kidney Disease Epidemiology Collaboration (CKD-EPI) equation refit without adjustment for race. BUN/Creatinine Ratio 16.1 LAB CHEMISTRY METHOD 08/10/2024 1:[address] [facility] Calcium 8.5 8.5 - 10.5 mg/dL LAB CHEMISTRY METHOD 08/10/2024 1:[address] [facility] Blood Venous blood specimen / Unknown Venipuncture / Unknown 08/10/2024 8:44 AM EST 08/10/2024 11:11 AM EST Stephanie Celis MD LAB BLOOD ORDERABLES Fin al Result [facility] [address] [place] [address], * (ABNORMAL) Complete blood count (08/10/2024 8:44 AM EST) WBC 3.9(L) 4.8 - 10.8 K/mcL LAB HEMETOLOGY METHOD 08/10/2024 12:[address] [facility] RBC 2.60(L) 3.80 - 4.80 M/mcL LAB HEMETOLOGY METHOD 08/10/2024 12:[address] [facility] Hemoglobin 9.9(L) 11.5 - 16.0 g/dL LAB HEMETOLOGY METHOD 08/10/2024 12:[address] [facility] Hematocrit 30.5(L) 35.0 - 47.0 % LAB HEMETOLOGY METHOD 08/10/2024 12:[address] [facility] MCV 116.4(H) 79.0 - 98.0 FL LAB HEMETOLOGY METHOD 08/10/2024 12:[address] [facility] MCH 37.8(H) 27.0 - 32.0 pcg LAB HEMETOLOGY METHOD 08/10/2024 12:[address] [facility] MCHC 32.5 32.0 - 37.0 g/dL LAB HEMETOLOGY METHOD 08/10/2024 12:[address] [facility] RDW 12.3 11.0 - 15.0 % LAB HEMETOLOGY METHOD 08/10/2024 12:[address] [facility] Platelets 43(L) 130 - 400 K/mcL LAB HEMETOLOGY METHOD 08/10/2024 12:[address] [facility] Comment:previously verified by slide MPV 9.8 7.0 - 11.0 FL LAB HEMETOLOGY METHOD 08/10/2024 12:39 PM EST [facility] NRBC 0.5 <1.0 % LAB HEMETOLOGY METHOD 08/10/2024 12:39 PM EST [facility] NRBC Absolute 0.02 <0.10 K/mcL LAB HEMETOLOGY METHOD 08/10/2024 12:39 PM EST [facility] Blood Venous blood specimen / Unknown Venipuncture / Unknown 08/10/2024 8:44 AM EST 08/10/2024 11:11 AM EST us Stephanie Celis MD LAB BLOOD ORDERABLES Fin al Result [facility] [address] [place] [address], documented in this encounter Visit Diagnoses Diagnosis Hyperlipidemia, unspecified Hypothyroidism, unspecified documented in this encounter Care Teams Hog Confinement System Manager Relationship Specialty Start Date End Date Nina Lindsay NP [address] [place] [phone] PCP - General 10/07/23 documented as of this encounter
--- OUTSIDE RECORDS SUMMARY | 2025-04-12 18:42 | XMS_ITS | Encounter Summary ---
Author Organization [facility] Address [id number] [place] [phone] Care Team Providers Care Dust Brush Assembler Name Role Phone Neftali Nina Marsh NP Primary Care Provider [phone] Encounter Details Date Type Department Care Team (Late st Contact Info) Description 08/25/2024 Lab Requisition [facility] - Main Lab 299 [facility] [place] [address] Stephanie Celis MD [address] [address] Encounter for therapeutic drug level monitoring Social [...] AM EDT Office Visit Orthopedic Surgery - [place] 250 175 [facility] 250 [place] [phone] Ulices Crowell DPM [address] [facility] 250 [place] [address] documented as of this encounter Procedures Procedure Name Priority Date/Time Associated Diagnosis Comments VALPROIC ACID LEVEL, TOTAL Routine 08/25/2024 7:32 AM EST Encounter for therapeutic drug level monitoring documented in this encounter Results * Valproic acid level, total (08/25/2024 7:32 AM EST) Valproic Acid, Total 99 50 - 100 mcg/mL LAB CHEMISTRY METHOD 08/25/2024 12:36 PM EST [facility] Blood Venous blood specimen / Unknown Venipuncture / Unknown 08/25/2024 7:32 AM EST 08/25/2024 9:16 AM EST us Stephanie Celis MD LAB BLOOD ORDERABLES Fin al Result [facility] ([facility] [address] [place] [address], documented in this encounter Visit Diagnoses Diagnosis Encounter for therapeutic drug level monitoring documented in this encounter Care Teams Dust Brush Assembler Relationship Specialty Start Date End Date Nina Lindsay NP [address] [place] [phone] PCP - General 10/07/23 documented as of this encounter
--- OUTSIDE RECORDS SUMMARY | 2025-04-12 18:42 | XMS_ITS | Encounter Summary ---
Author Organization [facility] Address [address] [place] [address] Care Team Providers Care Air And Water Tester Name Role Phone LindsayNina Salma NGUYEN Primary Care Provider [phone] Encounter Details Date Type Department Care Team (Late st Contact Info) Description 08/11/2024 Lab Requisition [facility] - Main Lab 299 [facility] [place] [address] Stephanie Celis MD [address] [address] Altered mental status, unspecified Social History Tobacco [...] AM EDT Office Visit Orthopedic Surgery - [place] [address] [facility] 250 [place] [address] Ulices Crowell DPM [address] [address] documented as of this encounter Procedures Procedure [...] reflex microscopic (08/10/2024 2:00 PM EST) Specific [place] Urine 1.019 1.003 - 1.030 LAB URINALYSIS - AUTOMATED METHOD 08/11/2024 11:48 AM [facility] pH, Urine 6.0 5.0 - 8.0 pH LAB URINALYSIS - AUTOMATED METHOD 08/11/2024 11:48 AM [facility] Leukocytes, Urine Large(A) Negative LAB URINALYSIS - AUTOMATED METHOD 08/11/2024 11:48 AM [facility] Nitrite, Urine Negative Negative LAB URINALYSIS - AUTOMATED METHOD 08/11/2024 11:48 AM [facility] Protein, Urine 100(A) <=Trace mg/dL LAB URINALYSIS - AUTOMATED METHOD 08/11/2024 11:48 AM [facility] Glucose, Urine Negative Negative mg/dL LAB URINALYSIS - AUTOMATED METHOD 08/11/2024 11:48 AM [facility] Ketones, Urine Trace(A) Negative mg/dL LAB URINALYSIS - AUTOMATED METHOD 08/11/2024 11:48 AM [facility] Urobilinogen , Urine 1.0 0.2 - 1.0 mg/dL LAB URINALYSIS - AUTOMATED METHOD 08/11/2024 11:48 AM [facility] Bilirubin, Urine Small(A) Negative LAB URINALYSIS - AUTOMATED METHOD 08/11/2024 11:48 AM [facility] Blood, Urine Moderate(A) Negative LAB URINALYSIS - AUTOMATED METHOD 08/11/2024 11:48 AM [facility] RBC, Urine 16.3(H) 0 - 4 /HPF LAB URINALYSIS - AUTOMATED METHOD 08/11/2024 11:48 AM [facility] WBC, Urine 1,391.8(H) 0 - 4 /HPF LAB URINALYSIS - AUTOMATED METHOD 08/11/2024 11:48 AM EST [facility] Squamous Epithelial, Urine 12 0 - 60 /LPF LAB URINALYSIS - AUTOMATED METHOD 08/11/2024 11:48 AM [facility] Bacteria, Urine Many(A) Negative /HPF LAB URINALYSIS - AUTOMATED METHOD 08/11/2024 11:48 AM [facility] Hyaline Casts, Urine 0.0 0 - 3 /LPF LAB URINALYSIS - AUTOMATED METHOD 08/11/2024 11:48 AM [facility] Urine Urine specimen obtained by clean catch procedure / Unknown Non-blood Collection / Unknown 08/10/2024 2:00 PM EST 08/11/2024 10:50 AM EST Stephanie Celis MD LAB URINE ORDERABLES Fin al Result [facility] [address] [place] [address], * (ABNORMAL) Culture urine (08/10/2024 2:00 PM EST) Culture, Urine >100,000 CFU/mL Klebsiella pneumoniae ssp pneumoniae(A) SAVANA 08/13/2024 10:17 AM EST [facility] Comment: This is an [...] us Stephanie Celis MD LAB MICROBIOLOGY - [facility] AL ORDERABLES Final Result [facility] [address] [place] [address], documented in this encounter Visit Diagnoses Diagnosis Altered mental status, unspecified documented in this encounter Care Teams Air And Water Tester Relationship Specialty Start Date End Date Nina Lindsay NP [address] [place] [phone] PCP - General 10/07/23 documented as of this encounter
--- OUTSIDE RECORDS SUMMARY | 2025-04-12 18:42 | XMS_ITS | Encounter Summary ---
Author Organization [facility] Address [address] [place] [address] Care Team Providers Care Popcorn Attendant Name Role Phone Neftali Nina Marsh NP Primary Care Provider [phone] Encounter Details Date Type Department Care Team (Late st Contact Info) Description 09/16/2024 Lab Requisition [facility] 299 [facility] [place] [address] Stephanie Celis MD [address] [address] Hyperlipidemia, unspecified; Unspecified cirrhosis of liver (CMS/HCC [...] AM EDT Office Visit Orthopedic Surgery - [place] [address] [phone] Ulices Crowell, TRACY [address] [address] documented as of this encounter Procedures Procedure [...] mmol/L LAB CHEMISTRY METHOD 09/16/2024 11:36 AM [facility] Potassium 3.8 3.5 - 5.5 mmol/L LAB CHEMISTRY METHOD 09/16/2024 11:36 AM [facility] Chloride 104 96 - 110 mmol/L LAB CHEMISTRY METHOD 09/16/2024 11:36 AM [facility] CO2 26 21 - 32 mmol/L LAB CHEMISTRY METHOD 09/16/2024 11:36 AM [facility] Anion Gap 9 3 - 11 LAB CHEMISTRY METHOD 09/16/2024 11:36 AM [facility] Glucose 102(H) 70 - 100 mg/dL LAB CHEMISTRY METHOD 09/16/2024 11:36 AM [facility] BUN 13 5 - 25 mg/dL LAB CHEMISTRY METHOD 09/16/2024 11:36 AM [facility] Creatinine 1.25(H) 0.50 - 1.10 mg/dL LAB CHEMISTRY METHOD 09/16/2024 11:36 AM [facility] eGFR 49(L) >=60 mL/min/1. 73m2 LAB CHEMISTRY METHOD 09/16/2024 11:36 AM [facility] Comment:Calculation based on the Chronic Kidney Disease Epidemiology Collaboration (CKD-EPI) equation refit without adjustment for race. BUN/Creatinine Ratio 10.4 LAB CHEMISTRY METHOD 09/16/2024 11:36 AM [facility] Calcium 8.6 8.5 - 10.5 mg/dL LAB CHEMISTRY METHOD 09/16/2024 11:36 AM T [facility] Blood Venous blood specimen / Unknown Venipuncture / Unknown 09/16/2024 6:47 AM EDT 09/16/2024 10:10 AM EDT us Stephanie Celis MD LAB BLOOD ORDERABLES Fin al Result [facility] 299 [place] [address], [place] [phone] * (ABNORMAL) Complete blood count (09/16/2024 6:47 AM EDT) WBC 2.1(L) 4.8 - 10.8 K/mcL LAB HEMETOLOGY METHOD 09/16/2024 11:08 AM [facility] RBC 2.70(L) 3.80 - 4.80 M/mcL LAB HEMETOLOGY METHOD 09/16/2024 11:08 AM [facility] Hemoglobin 10.1(L) 11.5 - 16.0 g/dL LAB HEMETOLOGY METHOD 09/16/2024 11:08 AM [facility] Hematocrit 31.0(L) 35.0 - 47.0 % LAB HEMETOLOGY METHOD 09/16/2024 11:08 AM [facility] MCV 116.1(H) 79.0 - 98.0 FL LAB HEMETOLOGY METHOD 09/16/2024 11:08 AM [facility] MCH 37.8(H) 27.0 - 32.0 pcg LAB HEMETOLOGY METHOD 09/16/2024 11:08 AM [facility] MCHC 32.6 32.0 - 37.0 g/dL LAB HEMETOLOGY METHOD 09/16/2024 11:08 AM [facility] RDW 13.3 11.0 - 15.0 % LAB HEMETOLOGY METHOD 09/16/2024 11:08 AM EDT [facility] Platelets 68(L) 130 - 400 K/mcL LAB HEMETOLOGY METHOD 09/16/2024 11:08 AM EDT [facility] Comment:previously verified by slide MPV 9.1 7.0 - 11.0 FL LAB HEMETOLOGY METHOD 09/16/2024 11:08 AM EDT [facility] NRBC 1.0(H) <1.0 % LAB HEMETOLOGY METHOD 09/16/2024 11:08 AM EDT [facility] NRBC Absolute 0.02 <0.10 K/mcL LAB HEMETOLOGY METHOD 09/16/2024 11:08 AM EDT [facility] Blood Venous blood specimen / Unknown Venipuncture / Unknown 09/16/2024 6:47 AM EDT 09/16/2024 10:10 AM EDT us Stephanie Celis MD LAB BLOOD ORDERABLES Fin al Result [facility] [address] [place] [address], documented in this encounter Visit Diagnoses Diagnosis Hyperlipidemia, unspecified Unspecified cirrhosis of liver (CMS/HCC V24, CMS/HCC V28) Chronic kidney disease, stage 3 unspecified (CMS/HCC V24, CMS/HCC V28) documented in this encounter Care Teams Popcorn Attendant Relationship Specialty Start Date End Date Nina Lindsay NP [address] [place] [phone] PCP - General 10/07/23 documented as of this encounter
--- OUTSIDE RECORDS SUMMARY | 2025-04-12 18:42 | XMS_ITS | Encounter Summary ---
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 Social History Tobacco Use [...] AM EDT Office Visit Orthopedic Surgery - [place] [address] [address] Ulices Crowell, DPSwati 175 [facility] 250 [place] [address] documented as of this encounter Procedures Procedure Name Priority Date/Time Associated Diagnosis Comments COMPLETE BLOOD COUNT Routine 09/08/2024 7:20 AM EST Other snf (current) drug therapy BASIC METABOLIC PANEL Routine 09/08/2024 7:20 AM EST Other snf (current) drug therapy documented in this encounter Results * (ABNORMAL) Basic metabolic panel (09/08/2024 7:20 AM EST) Sodium 140 133 - 145 mmol/L LAB CHEMISTRY METHOD 09/08/2024 10:01 AM [facility] Potassium 4.2 3.5 - 5.5 mmol/L LAB CHEMISTRY METHOD 09/08/2024 10:01 AM [facility] Chloride 103 96 - [...] [facility] Comment:Calculation based on the [...] al Result [facility] [address] [place] [address], * (ABNORMAL) Complete blood count (09/08/2024 7:20 [...] LAB HEMETOLOGY METHOD 09/08/2024 10:40 AM EST [facility] NRBC 0.0 <1.0 % LAB HEMETOLOGY METHOD 09/08/2024 10:40 AM EST [facility] NRBC Absolute 0.00 <0.10 K/mcL LAB HEMETOLOGY METHOD 09/08/2024 10:40 AM EST [facility] Blood Venous blood specimen / Unknown Venipuncture / Unknown 09/08/2024 7:20 AM EST 09/08/2024 9:03 AM EST us Stephanie Celis MD LAB BLOOD ORDERABLES Fin al Result [facility] [address] [place] [address], documented in this encounter Visit Diagnoses Diagnosis Other snf (current) drug therapy documented in this encounter Care Teams Bi Application Developer Relationship Specialty Start Date End Date Nina Lindsay NP [address] [phone] PCP - General 10/07/23 documented as of this encounter
--- OUTSIDE RECORDS SUMMARY | 2025-04-12 18:42 | XMS_ITS | Encounter Summary ---
Author Organization [facility] Address [address] [place] [address] Care Team Providers Care Websphere Administrator Name Role Phone LindsayNina Salma NGUYEN Primary Care Provider Encounter Details Date Type Department Care Team (Late st Contact Info) Description 08/15/2024 Lab Requisition [facility] - Main Lab 299 [facility] [place] [address] Stephanie Celis MD [address] [address] Hyperlipidemia, unspecified; Hypothyroidism, unspecified Social History Tobacco [...] AM EDT Office Visit Orthopedic Surgery - [place] [address] [phone] Ulices Crowell, DPSwati [address] [address] documented as of this encounter Procedures Procedure Name Priority Date/Time Associated Diagnosis Comments COMPLETE BLOOD COUNT Routine 08/17/2024 5:27 AM EST Hyperlipidemia, unspecified Hypothyroidism, unspecified BASIC METABOLIC PANEL Routine 08/17/2024 5:27 AM EST Hyperlipidemia, unspecified Hypothyroidism, unspecified documented in this encounter Results * (ABNORMAL) Basic metabolic panel (08/17/2024 5:27 AM EST) Sodium 139 133 - 145 mmol/L LAB CHEMISTRY METHOD 08/17/2024 11:29 AM [facility] Potassium 3.8 3.5 - 5.5 mmol/L LAB CHEMISTRY METHOD 08/17/2024 11:29 AM [facility] Chloride 103 96 - 110 mmol/L LAB CHEMISTRY METHOD 08/17/2024 11:29 AM [facility] CO2 30 21 - 32 mmol/L LAB CHEMISTRY METHOD 08/17/2024 11:29 AM [facility] Anion Gap 6 3 - 11 LAB CHEMISTRY METHOD 08/17/2024 11:29 AM [facility] Glucose 98 70 - 100 mg/dL LAB CHEMISTRY METHOD 08/17/2024 11:29 AM [facility] BUN 18 5 - 25 mg/dL LAB CHEMISTRY METHOD 08/17/2024 11:29 AM [facility] Creatinine 1.57(H) 0.50 - 1.10 mg/dL LAB CHEMISTRY METHOD 08/17/2024 11:29 AM [facility] eGFR 37(L) >=60 mL/min/1. 73m2 LAB CHEMISTRY METHOD 08/17/2024 11:29 AM [facility] Comment:Calculation based on the Chronic Kidney Disease Epidemiology Collaboration (CKD-EPI) equation refit without adjustment for race. BUN/Creatinine Ratio 11.5 LAB CHEMISTRY METHOD 08/17/2024 11:29 AM [facility] Calcium 8.6 8.5 - 10.5 mg/dL LAB CHEMISTRY METHOD 08/17/2024 11:29 AM [facility] Blood Venous blood specimen / Unknown Venipuncture / Unknown 08/17/2024 5:27 AM EST 08/17/2024 10:16 AM EST Stephanie Celis MD LAB BLOOD ORDERABLES Fin al Result [facility] [address] [place] [address], * (ABNORMAL) Complete blood count (08/17/2024 5:27 AM EST) WBC 2.6(L) 4.8 - 10.8 K/mcL LAB HEMETOLOGY METHOD 08/17/2024 10:38 AM [facility] RBC 2.70(L) 3.80 - 4.80 M/mcL LAB HEMETOLOGY METHOD 08/17/2024 10:38 AM [facility] Hemoglobin 10.1(L) 11.5 - 16.0 g/dL LAB HEMETOLOGY METHOD 08/17/2024 10:38 AM [facility] Hematocrit 31.7(L) 35.0 - 47.0 % LAB HEMETOLOGY METHOD 08/17/2024 10:38 AM [facility] MCV 118.7(H) 79.0 - 98.0 FL LAB HEMETOLOGY METHOD 08/17/2024 10:38 AM [facility] MCH 37.8(H) 27.0 - 32.0 pcg LAB HEMETOLOGY METHOD 08/17/2024 10:38 AM [facility] MCHC 31.9(L) 32.0 - 37.0 g/dL LAB HEMETOLOGY METHOD 08/17/2024 10:38 AM [facility] RDW 13.2 11.0 - 15.0 % LAB HEMETOLOGY METHOD 08/17/2024 10:38 AM [facility] Platelets 50(L) 130 - 400 K/mcL LAB HEMETOLOGY METHOD 08/17/2024 10:38 AM [facility] Comment:previously verified by slide MPV 9.6 7.0 - 11.0 FL LAB HEMETOLOGY METHOD 08/17/2024 10:[address] [facility] NRBC 0.0 <1.0 % LAB HEMETOLOGY METHOD 08/17/2024 10:[address] [facility] NRBC Absolute 0.00 <0.10 K/mcL LAB HEMETOLOGY METHOD 08/17/2024 10:[address] [facility] Blood Venous blood specimen / Unknown Venipuncture / Unknown 08/17/2024 5:27 AM EST 08/17/2024 10:16 AM EST us Stephanie Celis MD LAB BLOOD ORDERABLES Fin al Result [facility] [address] [place] [address], documented in this encounter Visit Diagnoses Diagnosis Hyperlipidemia, unspecified Hypothyroidism, unspecified documented in this encounter Care Teams Websphere Administrator Relationship Specialty Start Date End Date Nina Lindsay NP [address] [place] [phone] PCP - General 10/07/23 documented as of this encounter
--- OUTSIDE RECORDS SUMMARY | 2025-04-12 18:42 | XMS_ITS | Encounter Summary ---
Author Organization [facility] Address [address] [place] [address] Care Team Providers Care Paster Operator Name Role Phone LindsayNina Salma NGUYEN Primary Care Provider [phone] Encounter Details Date Type Department Care Team (Late st Contact Info) Description 09/22/2024 Lab Requisition [facility] - Main Lab 299 [facility] [place] [address] Stephanie Celis MD [address] [address] Other drug-induced pancytopenia (CMS/HCC V24); Chronic kidney [...] AM EDT Office Visit Orthopedic Surgery - [place] 250 175 [facility] 250 [place] [phone] Ulices Crowell, DPSwati [address] [address] documented as of this encounter Procedures Procedure [...] mmol/L LAB CHEMISTRY METHOD 09/22/2024 10:05 AM [facility] Potassium 4.0 3.5 - 5.5 mmol/L LAB CHEMISTRY METHOD 09/22/2024 10:05 AM [facility] Chloride 103 96 - 110 mmol/L LAB CHEMISTRY METHOD 09/22/2024 10:05 AM [facility] CO2 27 21 - 32 mmol/L LAB CHEMISTRY METHOD 09/22/2024 10:05 AM [facility] Anion Gap 8 3 - 11 LAB CHEMISTRY METHOD 09/22/2024 10:05 AM [facility] Glucose 105(H) 70 - 100 mg/dL LAB CHEMISTRY METHOD 09/22/2024 10:05 AM [facility] BUN 15 5 - 25 mg/dL LAB CHEMISTRY METHOD 09/22/2024 10:05 AM [facility] Creatinine 1.15(H) 0.50 - 1.10 mg/dL LAB CHEMISTRY METHOD 09/22/2024 10:05 AM [facility] eGFR 54(L) >=60 mL/min/1. 73m2 LAB CHEMISTRY METHOD 09/22/2024 10:05 AM [facility] Comment:Calculation based on the Chronic Kidney Disease Epidemiology Collaboration (CKD-EPI) equation refit without adjustment for race. BUN/Creatinine Ratio 13.0 LAB CHEMISTRY METHOD 09/22/2024 10:05 AM [facility] Calcium 8.9 8.5 - 10.5 mg/dL LAB CHEMISTRY METHOD 09/22/2024 10:05 AM EDT [facility] Blood Venous blood specimen / Unknown Venipuncture / Unknown 09/22/2024 7:02 AM EDT 09/22/2024 8:33 AM EDT us Stephanie Celis MD LAB BLOOD ORDERABLES Fin al Result [facility] [address] [place] [address], * (ABNORMAL) Complete blood count (09/22/2024 7:02 AM EDT) WBC 2.2(L) 4.8 - 10.8 K/mcL LAB HEMETOLOGY METHOD 09/[facility]24 [facility] RBC 2.80(L) 3.80 - 4.80 M/mcL LAB HEMETOLOGY METHOD 09/22/2024 10:32 AM EDT [facility] Hemoglobin 10.5(L) 11.5 - 16.0 g/dL LAB HEMETOLOGY METHOD 09/22/2024 10:32 AM [facility] Hematocrit 30.9(L) 35.0 - 47.0 % LAB HEMETOLOGY METHOD 09/22/2024 10:32 AM [facility] MCV 110.4(H) 79.0 - 98.0 FL LAB HEMETOLOGY METHOD 09/22/2024 10:32 AM EDT [facility] MCH 37.5(H) 27.0 - 32.0 pcg LAB HEMETOLOGY METHOD 09/22/2024 10:32 AM EDT [facility] MCHC 34.0 32.0 - 37.0 g/dL LAB HEMETOLOGY METHOD 09/22/2024 10:[facility] RDW 13.2 11.0 - 15.0 % LAB HEMETOLOGY METHOD 09/22/2024 10:32 AM EDT [facility] Platelets 66(L) 130 - 400 K/mcL LAB HEMETOLOGY METHOD 09/22/2024 10:32 AM EDT [facility] Comment:previously verified by slide MPV 9.2 7.0 - 11.0 FL LAB HEMETOLOGY METHOD 09/22/2024 10:32 AM EDT [facility] NRBC 0.0 <1.0 % [facility] 09/22/2024 10:32 AM EDT [facility] NRBC Absolute 0.00 <0.10 K/mcL [facility] 09/22/2024 10:32 AM EDT [facility] Blood Venous blood specimen / Unknown Venipuncture / Unknown 09/22/2024 7:02 AM EDT 09/22/2024 8:33 AM EDT us Stephanie Celis MD LAB BLOOD ORDERABLES Fin al Result [facility] [address] [place] [address], documented in this encounter Visit Diagnoses Diagnosis 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
--- OUTSIDE RECORDS SUMMARY | 2025-04-12 18:42 | XMS_ITS | Encounter Summary ---
Author Organization [facility] Address [address] [place] [address] Care Team Providers Care Blanching Machine Operator Name Role Phone NeftaliNina Salma NGUYEN Primary Care Provider [phone] Encounter Details Date Type Department Care Team (Late st Contact Info) Description 08/26/2024 Lab Requisition [facility] - Main Lab 299 [place] [address] Stephanie Celis MD [address] [address] Anemia, unspecified Social History Tobacco Use Types [...] AM EDT Office Visit Orthopedic Surgery - [place] 250 175 [facility] 250 [place] [phone] Ulices Crowell DPM [address] [address] documented as of this encounter Procedures Procedure Name Priority Date/Time Associated Diagnosis Comments COMPLETE BLOOD COUNT Routine 08/27/2024 7:46 AM EST Anemia, unspecified documented in this encounter Results * (ABNORMAL) Complete blood count (08/27/2024 7:46 AM EST) WBC 1.9(LL) 4.8 - 10.8 K/[facility] LAB HEMETOLOGY METHOD 08/27/2024 12:41 PM [facility] RBC 2.60(L) 3.80 - 4.80 M/mcL LAB HEMETOLOGY METHOD 08/27/2024 12:41 PM [facility] Hemoglobin 9.8(L) 11.5 - 16.0 g/dL LAB HEMETOLOGY METHOD 08/27/2024 12:41 PM [facility] LAB Hematocrit 30.2(L) 35.0 - 47.0 % LAB HEMETOLOGY METHOD 08/27/2024 12:41 PM [facility] MCV 115.7(H) 79.0 - 98.0 FL LAB HEMETOLOGY METHOD 08/27/2024 12:41 PM [facility] LAB MCH 37.5(H) 27.0 - 32.0 pcg LAB HEMETOLOGY METHOD 08/27/2024 12:41 PM [facility] LAB MCHC 32.5 32.0 - 37.0 g/dL LAB HEMETOLOGY METHOD 08/27/2024 12:41 PM [facility] LAB RDW 13.2 11.0 - 15.0 % LAB HEMETOLOGY METHOD 08/27/2024 12:41 PM [facility] LAB Platelets 30(L) 130 - 400 K/mcL LAB HEMETOLOGY METHOD 08/27/2024 12:41 PM [facility] Comment:previously verified by slide MPV 9.9 7.0 - 11.0 FL LAB HEMETOLOGY METHOD 08/27/2024 12:41 PM [facility] NRBC 0.0 <1.0 % LAB HEMETOLOGY METHOD 08/27/2024 12:41 PM [facility] NRBC Absolute 0.00 <0.10 K/mcL LAB HEMETOLOGY METHOD 08/27/2024 12:41 PM [facility] Blood Venous blood specimen / Unknown 08/27/2024 7:46 AM EST 08/27/2024 11:46 AM EST us Stephanie Celis MD LAB BLOOD ORDERABLES Fin al Result [facility] [address] [place] [address], documented in this encounter Visit Diagnoses Diagnosis Anemia, unspecified documented in this encounter Care Teams Blanching Machine Operator Relationship Specialty Start Date End Date Nina Lindsay NP [address] [place] [phone] PCP - General 10/07/23 documented as of this encounter
--- OUTSIDE RECORDS SUMMARY | 2025-04-12 18:42 | XMS_ITS | Encounter Summary ---
Author Organization [facility] Address [address] [place] [address] Care Team Providers Care Sand Molder Name Role Phone Neftali Nina Marsh NP Primary Care Provider [phone] Encounter Details Date Type Department Care Team (Late Contact Info) Description 08/13/2024 Lab Requisition [facility] Lab 299 [facility] [place] [address] Stephanie Celis MD [address] [address] Human immunodeficiency virus (HIV) disease (CMS/HCC V24, [...] AM EDT Office Visit Orthopedic Surgery - [place] [address] [phone] Ulices Crowell, TRACY [address] [address] documented as of this encounter Procedures Procedure Name Priority Date/Time Associated Diagnosis Comments COMPLETE BLOOD COUNT Routine 08/13/2024 7:22 AM EST Human immunodeficiency virus (HIV) disease (CMS/[facility]) Noninfective gastroenteritis and colitis, unspecified Altered mental status, unspecified Vitamin D deficiency, unspecified documented in this encounter Results * (ABNORMAL) Complete blood count (08/13/2024 7:22 AM EST) WBC 2.6(L) 4.8 - 10.8 K/mcL LAB HEMETOLOGY METHOD 08/13/2024 10:51 AM [facility] RBC 2.50(L) 3.80 - 4.80 M/mcL LAB HEMETOLOGY METHOD 08/13/2024 10:51 AM [facility] Hemoglobin 9.6(L) 11.5 - 16.0 g/dL LAB HEMETOLOGY METHOD 08/13/2024 10:51 AM [facility] Hematocrit 29.0(L) 35.0 - 47.0 % LAB HEMETOLOGY METHOD 08/13/2024 10:51 AM [facility] LAB MCV 115.5(H) 79.0 - 98.0 FL LAB HEMETOLOGY METHOD 08/13/2024 10:51 AM [facility] MCH 38.2(H) 27.0 - 32.0 pcg LAB HEMETOLOGY METHOD 08/13/2024 10:51 AM [facility] MCHC 33.1 32.0 - 37.0 g/dL LAB HEMETOLOGY METHOD 08/13/2024 10:51 AM [facility] RDW 12.2 11.0 - 15.0 % LAB HEMETOLOGY METHOD 08/13/2024 10:51 AM [facility] Platelets 38(L) 130 - 400 K/mcL LAB HEMETOLOGY METHOD 08/13/2024 10:51 AM [facility] Comment:previously verified by slide MPV 9.4 7.0 - 11.0 FL LAB HEMETOLOGY METHOD 08/13/2024 10:51 AM [facility] NRBC 0.0 <1.0 % LAB HEMETOLOGY METHOD 08/13/2024 10:51 AM EST [facility] NRBC Absolute 0.00 <0.10 K/mcL LAB HEMETOLOGY METHOD 08/13/2024 10:51 AM EST [facility] Blood Venous blood specimen / Unknown Venipuncture / Unknown 08/13/2024 7:22 AM EST 08/13/2024 9:57 AM EST us Stephanie Celis MD LAB BLOOD ORDERABLES Fin al Result [facility] [address] [place] [address], documented in this encounter Visit Diagnoses Diagnosis Human immunodeficiency virus (HIV) disease (CMS/HCC V24, CMS/[facility] V28) Human immunodeficiency virus [HIV] disease Noninfective gastroenteritis and colitis, unspecified Altered mental status, unspecified Vitamin D deficiency, unspecified documented in this encounter Care Teams Sand Molder Relationship Specialty Start Date End Date Nina Lindsay NP [address] [place] [phone] PCP - General 10/07/23 documented as of this encounter
[2025-04-12 19:23] VITALS: BP 126/71; PULSE 75; RESP 17; TEMP 36.8; O2SAT 100
[2025-04-12 20:00] VITALS: BP 135/66; PULSE 72; RESP 16; TEMP 36.5; O2SAT 97
--- NOTE | 2025-04-12 21:08 | PC.NURSE ---
pt assisted to bathroom w/ standby assist via rolling walker, urine sample collected and sent to lab
[2025-04-12 21:15] LABS: Appearance Urine Cloudy; Glucose Urine UA Negative (Negative); PH 6.5 (5.0-9.0); Specific Gravity - Urine 1.010 (1.005-1.025); UMIC TRIGGER UACC YES
[2025-04-12 21:20] LABS: UACC Culture Trigger YES
[2025-04-12 22:38] VITALS: BP 135/66; PULSE 73; RESP 19; TEMP 36.8; O2SAT 97
--- NOTE | 2025-04-12 23:00 | PC.NURSE ---
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
[2025-04-13 02:11] VITALS: BP 135/66; PULSE 73; RESP 19; TEMP 36.8; O2SAT 97
== END 2025-04-13 02:12 | disposition home or self-care (01) ==
PROVIDERS: Physician Assistant; Emergency Provider Emergency Medicine
DX: N39.0 Urinary tract infection, site not specified (principal); M54.50 Low back pain, unspecified; R44.0 Auditory hallucinations; S39.92XA Unspecified injury of lower back, initial encounter; W19.XXXA Unspecified fall, initial encounter; Y93.9 Activity, unspecified; Y92.9 Unspecified place or not applicable; Y99.9 Unspecified external cause status
CPT/HCPCS: 36415; 70450; 72125; 73090; 80053; 81001; 82140; 83690; 85025; 87086; 87088; 87186; 99283; 99284; S9485

== ENCOUNTER → 2025-04-12 18:30 | Outpatient (BNV) | payer MEDICARE, MEDICAID, SELFPAY | PROVIDERS: Emergency Provider Emergency Medicine; Visit Provider Student in an Organized Health Care Education/Training Program | DX: S50.11XA Contusion of right forearm, initial encounter (principal); W19.XXXA Unspecified fall, initial encounter | CPT/HCPCS: 73090 ==

== ENCOUNTER 2025-04-14 11:57 | Outpatient (AMB) | payer MEDICARE, MEDICAID, SELFPAY ==
--- NOTE | 2025-04-14 11:59 | A.OFFVIS_ITS ---
Intake Visit Reasons: 3m/PVR (r/s from 01/14) Intake Note: Patient is present for 3M/PVR Urology Medication:VITAMIN B12 Antibiotic Allergy:PENICILLINS Blood Thinner:NONE TODAY'S PVRZ:0ML'S Sand Mixer Required: No Allergies abacavir (ABACAVIR) Allergy (Severe, Verified 04/14/25 22:08) HIVES hydrochlorothiazide (HYDROCHLOROTHIAZIDE) Allergy (Severe, Verified 04/14/25 22:08) HIVES ibuprofen (From MOTRIN) Allergy (Severe, Verified 04/14/25 22:08) HIVES Penicillins (PENICILLINS) Allergy (Severe, Verified 04/14/25 22:08) HIVES tenofovir (From VIREAD) Allergy (Severe, Verified 04/14/25 22:08) HIVES tomato (TOMATO) Allergy (Severe, Verified 04/14/25 22:08) HIVES zidovudine (From RETROVIR) Allergy (Severe, Verified 04/14/25 22:08) HIVES lactose (Lactose) Adverse Reaction (Mild, Verified 04/14/25 22:08) DIARRHEA disoproxail Allergy (Mild, Uncoded 04/14/25 22:08) Unknown fumarate Allergy (Uncoded 04/14/25 22:08) Unknown hydrovenzthiazide Allergy (Uncoded 04/14/25 22:08) Unknown Medication List - Last Reconciled 04/14/25 by TREVON Manriquez acetaminophen 500 mg PO Q6H PRN albuterol sulfate 90 mcg/actuation 2 puffs inhalation Q4H PRN atorvastatin (Lipitor) 20 mg PO DAILY gedwfyxms-ovbfjuzg-daxdyzm ala 50-200-25 mg (Biktarvy) 1 tab PO DAILY calcium carbonate-vitamin D3 600 mg-10 mcg (400 unit) (Calcium 600 + D(3)) 1 tab PO BID cefuroxime axetil 250 mg PO BID cyanocobalamin (vitamin B-12) (Vitamin B-12) 50 mcg PO DAILY divalproex ER 750 mg PO BEDTIME divalproex ER 750 mg PO ONCE estradiol 0.01%(0.1mg/gram) Apply pea-sized amount to urethra daily x1 month and then 3 times a week thereafter 90 days folic acid 1 mg PO DAILY levothyroxine 75 mcg PO DAILY@0600 loperamide 4 mg PO Q6H PRN midodrine 5 mg PO TID omeprazole 20 mg PO QAM quetiapine 200 mg PO TID 30 days sennosides-docusate sodium 8.6-50 mg (Stimulant Laxative Plus) 1 tab PO BID sertraline 100 mg PO DAILY simethicone 80 mg PO TID sodium chloride 0.65% (Saline Nasal) 1 spray intranasal BID trazodone 100 mg PO BEDTIME valacyclovir (Valtrex) 500 mg PO BID wheat dextrin (Benefiber Sugar Free (dextrin)) 1 packet PO BID HPI Comments Details: Adrianne is a 63-year-old female patient of Dr. Lindsay who was accompanied by her social work program coordinator. She has a past medical history of hypothyroidism, history of ETOH has been sober since 1999, diverticulosis, constipation, developmental delay, depression, PTSD, hyperlipidemia, seasonal allergies, history of hep C has since been treated, HIV, nocturia, and urinary frequency. She presents to the office today for follow-up of her lower urinary tract symptoms and recent urinary tract infection. In discussion with the patient today she reports having seeked emergency room care just 2 days ago as she had experienced multiple falls in her snf at which time she was sent to the emergency room for further assessment evaluation. During ER visit patient was noted to have urinary tract infections and has since started cefuroxime 250 mg b.i.d. x7 days per ER provider. Patient reports she had been experiencing dysuria prior to ER visit. She does feel dysuria has significantly improved. We did discussed importance of calling office and or seeking medical treatment with any UTI like symptoms. UTI symptoms were reviewed with the patient today and social work program coordinator today as patient does have developmental delay. We discussed potential causes of lower urinary tract symptoms as well as urinary tract infections. All questions were answered. Unable to obtain urine for urinalysis today however PVR 0 mL. Previous workup has included a retroperitoneal ultrasound 05/31 that noted the bladder is well distended and normal. Bladder jets are demonstrated. Pre void bladder volume is approximately 160 mL. Postvoid bladder volume is approximately 10 mL. Bilateral kidneys are normal in size, contour, and echogenicity. Bilateral kidneys with no parenchymal lesions and or hydronephrosis noted. Right kidney with a single 6 mm echogenic focus consistent with a nonobstructing stone. We discussed potential causes for lower urinary tract symptoms patient was experiencing. All questions were answered. She otherwise offers no other issues or concerns at this time. In review of patients chart it appears urine culture: 12/26 Grp B, 12/26 E. Coli/ Grp B, 01/25 E.coli, 01/25 E coli/Grp B, 05/30 E.coli/Grp B, 08/31 ecoli, 03/01 Ecoli. [facility] Medical History Tremor of both hands Positive serological reaction for syphilis Hypothyroidism Hx of acute pancreatitis Hx of acute renal failure History of ETOH abuse Hx of herpes genitalis History of diverticulosis Constipation History of intravenous drug abuse Developmental delay, mild COVID-19 vaccine series completed Depression PTSD (post-traumatic stress disorder) Hyperlipidemia Seasonal allergies Hx of hepatitis C HIV (human immunodeficiency virus infection) Nocturia Frequency of micturition Surgical History History of colonoscopy Family History Mother Alzheimer disease Breast cancer HTN (hypertension) Paternal Aunt Breast cancer Social History Household Members: None Household Members Other:: [employer] Housing: Apartment Housing Other:: Mcfp Are you a primary intensive care anaesthetist to a significant other at home: No Do you presently have visiting nurse or other home services: Yes Alcohol intake: never Patient Tobacco Use Status: Never used Tobacco e-Cigarette/Vaping Use: Never Used Second Hand Smoke Exposure: No service: No Sexual orientation: Decline to Answer Female Reproductive History Menstrual Age of Menarche: 11 Review of Systems Const Reports no additional complaints Eyes Reports no additional complaints ENT Reports no additional complaints Card Reports as per HPI Resp Reports no additional complaints GI Reports as per HPI Reports as per HPI Musc Reports as per HPI Neuro Reports as per HPI Psych Reports as per HPI Endo Reports as per HPI Arian/Lymph Reports as per HPI Aller/Immun Reports no additional complaints Physical Exam Const General: cooperative, comfortable, no acute distress, well developed, alert and awake Orientation/consciousness: patient oriented x3 Limitations: no limitations HEENT Head: Yes normal to inspection, Yes normocephalic and Yes atraumatic Ears: hearing grossly normal bilaterally Eyes General: appearance normal, both eyes and all related structures Neck Neck: Yes normal visual inspection and Yes trachea midline Chest Chest palpation & inspection: normal inspection of the chest Resp Effort & Inspection: normal respiratory effort and able to speak in complete sentences Cardio Rate: regular rate GI Inspection: Yes normal to inspection General: Yes no CVA tenderness Back/Spine/Pelvis Back: no CVA tenderness Skin General skin exam: no rashes or lesions noted Neuro General: patient oriented x3 Extrem General: Yes normal to inspection Psych Appearance: grossly normal and well kempt Mental Status: mental status grossly normal Speech and movement: Normal speech and movement present and Clear speech present Affect: normal affect Attitude: cooperative Thought process: Normal thought process present Thought content: Normal thought content present Insight: Limited insight present (Psych) Judgement: Limited judgement present (Psych) Office Procedures Post Void Residual Post Residual Void Post Void Residual (PVR): 0 [id number]-[id number] Void Residual by ultrasound Assessment & Plan Assessment & Plan (1) Nephrolithiasis: Code(s): N20.0 - Calculus of kidney Category: Medical (2) Renal cyst: Code(s): N28.1 - Cyst of kidney, acquired Category: Medical (3) UTI (urinary tract infection): Comment: history of positive microscopic hematuria resolved today Code(s): N39.0 - Urinary tract infection, site not specified Category: Medical (4) Frequency of micturition: Code(s): R35.0 - Frequency of micturition Category: Medical (5) Overactive bladder: Code(s): N32.81 - Overactive bladder Category: Medical (6) Nocturia: Code(s): R35.1 - Nocturia Category: Medical (7) Dysuria: Code(s): R30.0 - Dysuria Category: Medical Plan Unable to obtain urine for urinalysis today however PVR 0 mL. We discussed importance of completing antibiotic as prescribed. Previous urine culture results reviewed with the patient and sumo wrestler today; as noted above Start Estrace cream as discussed and prescribed. We did discussed potential causes of lower urinary tract symptoms as well as urinary tract infections. We discussed the importance of adequate hydration. We discussed calling office and or seeking medical treatment with any UTI like symptoms. All questions were answered. Discussed UTI prevention with D mannose supplement, vitamin-C, increasing fluid intake, behavioral therapy with timed voiding, perineal hygiene and postcoital voiding, and management of constipation with stool softeners and increased fiber intake. Follow-up in 3 months; or sooner with any issues, concerns, and or questions. Medications: New estradiol 0.01%(0.1mg/gram) Apply pea-sized amount to urethra daily x1 month and then 3 times a week thereafter 42.5 grams 2RF 90 days N30.20 - Other chronic cystitis without hematuria, N39.0 - Urinary tract infection, site not specified, N95.2 - Postmenopausal atrophic vaginitis Patient Instructions: The patient had an opportunity to ask questions regarding the treatment plan. All questions were answered. Physical exam, labs, and imaging were discussed and reviewed in detail. As well as risks, benefits, and discussion of treatment choices. No major barriers to understanding were identified. The patient expressed understanding and agreement with the above treatment plan. The patient was made aware they should contact our office by phone for worsening of their current condition, the appearance of new symptoms, or with any questions or concerns. Compliance is encouraged with any medications and follow up testing that is ordered. It is a privilege to be allowed the opportunity to participate in? your urological care.? Again, if you have any questions or concerns If you have any questions or concerns please do not hesitate to contact me. The office is [phone]. This note is constructed using voice recognition software. While every effort has been made to ensure accuracy vice president talent management errors may have been included. Yours sincerely, TREVON Manriquez Coding Level of Care Code Est Pt Level 4 (97108) Diagnoses Nephrolithiasis N20.0 Renal cyst N28.1 UTI (urinary tract infection) N39.0 Frequency of micturition R35.0 Overactive bladder N32.81 Nocturia R35.1 Dysuria R30.0 CPT Codes Post Residual Void - PVR CPT Code: 21554-Jsno Void Residual by ultrasound ([id number])
== END 2025-04-14 12:26 | disposition home or self-care (01) ==
LOC: HO.HUSH 11:57
PROVIDERS: PCP Nurse Practitioner Primary Care; Visit Provider Nurse Practitioner Family
DX: N20.0 Calculus of kidney (principal); N28.1 Cyst of kidney, acquired; N39.0 Urinary tract infection, site not specified; R35.0 Frequency of micturition; N32.81 Overactive bladder; R35.1 Nocturia; R30.0 Dysuria
CPT/HCPCS: 99214

== ENCOUNTER → 2025-04-14 11:57 | Outpatient (BNVA) | payer MEDICARE, MEDICAID, SELFPAY | PROVIDERS: PCP Nurse Practitioner Primary Care; Visit Provider Nurse Practitioner Family | DX: N39.0 Urinary tract infection, site not specified (principal); N20.0 Calculus of kidney; R35.0 Frequency of micturition; N32.81 Overactive bladder; N28.1 Cyst of kidney, acquired; R35.1 Nocturia; R30.0 Dysuria | CPT/HCPCS: 51798; 99212 ==

== ENCOUNTER 2025-05-26 11:21 | Outpatient (REF) | payer MEDICARE, MEDICAID, SELFPAY | END 2025-05-26 11:22 | disposition home or self-care (01) | LOC: HO.LNP 11:21 | PROVIDERS: PCP Student in an Organized Health Care Education/Training Program; Visit Provider Obstetrics & Gynecology | DX: Z01.419 Encounter for gynecological examination (general) (routine) without abnormal findings (principal); Z12.31 Encounter for screening mammogram for malignant neoplasm of breast; Z12.11 Encounter for screening for malignant neoplasm of colon | CPT/HCPCS: 87626; 88175; 99396 ==

== ENCOUNTER 2025-05-26 11:21 | Outpatient (AMB) | payer MEDICARE, MEDICAID, SELFPAY ==
--- NOTE | 2025-05-26 11:37 | A.OFFVIS_ITS ---
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 Hyperbaric Required: No Allergies abacavir (ABACAVIR) Allergy (Severe, Verified 05/26/25 11:49) HIVES hydrochlorothiazide (HYDROCHLOROTHIAZIDE) Allergy (Severe, Verified 05/26/25 11:49) HIVES ibuprofen (From MOTRIN) Allergy (Severe, Verified 05/26/25 11:49) HIVES Penicillins (PENICILLINS) Allergy (Severe, Verified 05/26/25 11:49) HIVES tenofovir (From VIREAD) Allergy (Severe, Verified 05/26/25 11:49) HIVES tomato (TOMATO) Allergy (Severe, Verified 05/26/25 11:49) HIVES zidovudine (From RETROVIR) Allergy (Severe, Verified 05/26/25 11:49) HIVES lactose (Lactose) Adverse Reaction (Mild, Verified 05/26/25 11:49) DIARRHEA disoproxail Allergy (Mild, Uncoded 05/26/25 11:49) Unknown fumarate Allergy (Uncoded 05/26/25 11:49) Unknown hydrovenzthiazide Allergy (Uncoded 05/26/25 11:49) Unknown Medication List - Last Reconciled 05/26/25 by Nallely Kline, [employer] acetaminophen 500 mg PO Q6H PRN albuterol sulfate 90 mcg/actuation 2 puffs inhalation Q4H PRN atorvastatin (Lipitor) 20 mg PO DAILY cdtwahuam-ejzbbwxc-nikveqd ala 50-200-25 mg (Biktarvy) 1 tab PO DAILY calcium carbonate-vitamin D3 600 mg-10 mcg (400 unit) (Calcium 600 + D(3)) 1 tab PO BID cefuroxime axetil 250 mg PO BID cyanocobalamin (vitamin B-12) (Vitamin B-12) 50 mcg PO DAILY divalproex ER 750 mg PO BEDTIME divalproex ER 750 mg PO ONCE estradiol 0.01%(0.1mg/gram) Apply pea-sized amount to urethra daily x1 month and then 3 times a week thereafter 90 days folic acid 1 mg PO DAILY levothyroxine 75 mcg PO DAILY@0600 loperamide 4 mg PO Q6H PRN midodrine 5 mg PO TID omeprazole 20 mg PO QAM 90 days quetiapine 200 mg PO TID 30 days sennosides-docusate sodium 8.6-50 mg (Stimulant Laxative Plus) 1 tab PO BID 90 days sertraline 100 mg PO DAILY simethicone 80 mg PO TID sodium chloride 0.65% (Saline Nasal) 1 spray intranasal BID trazodone 100 mg PO BEDTIME valacyclovir (Valtrex) 500 mg PO BID wheat dextrin (Benefiber Sugar Free (dextrin)) 1 packet PO BID Is last menstrual period known: No Post menopausal: Yes Patient : No HPI Comments Details: Presenting for annual exam. No complaints. Last Pap/HPV was negative in 01/25 Last Mammogram was BI-RADS 2 in 11/28 Last Colonoscopy was done in 11/28 [facility] Medical History Tremor of both hands Positive serological reaction for syphilis Hypothyroidism Hx of acute pancreatitis Hx of acute renal failure History of ETOH abuse Hx of herpes genitalis History of diverticulosis Constipation History of intravenous drug abuse Developmental delay, mild COVID-19 vaccine series completed Depression PTSD (post-traumatic stress disorder) Hyperlipidemia Seasonal allergies Hx of hepatitis C HIV (human immunodeficiency virus infection) Nocturia Frequency of micturition Surgical History History of colonoscopy Family History Mother Alzheimer disease Breast cancer HTN (hypertension) Paternal Aunt Breast cancer Social History Household Members: None Household Members Other:: [employer] Housing: Apartment Housing Other:: Long Term Are you a primary healthcare translator to a significant other at home: No Do you presently have visiting nurse or other home services: Yes Unable to assess alcohol history related to: Unknown Alcohol intake: never Patient Tobacco Use Status: Never used Tobacco e-Cigarette/Vaping Use: Never Used Second Hand Smoke Exposure: No Patient : No service: No Sexual orientation: Decline to Answer Female Reproductive History Menstrual Age of Menarche: 11 Date of last pap smear: 01/25/21 History of abnormal pap smear: No History of STI: No Date of Mammogram: 12/04/23 History of abnormal mammogram: No Review of Systems Const All systems reviewed & are unremarkable except as noted in HPI and below Card Reports as per HPI Resp Reports as per HPI GI Reports as per HPI and Reports no additional complaints Reports as per HPI Physical Exam Vital Signs: Last Vital Signs BP 110/66 05/26/25 11:42 BMI result Body Mass Index 30.7 Const General: cooperative, healthy appearing and comfortable Chest Chest palpation & inspection: normal inspection of the chest and normal palpation of entire chest wall Breast/axilla inspection: normal inspection of the breasts and normal inspection of the axillae Breast/axilla palpation: normal palpation of the breasts, normal palpation of the axillae and no axillary lymphadenopathy Resp Effort & Inspection: normal respiratory effort Auscultation: clear to auscultation bilaterally Percussion: percussion normal Cardio Palpation: normal PMI Rate: regular rate Rhythm: regular rhythm Heart sounds: no murmurs and no rubs Peripheral pulses: Peripheral pulses 2+ throughout GI Inspection: Yes normal to inspection Palpation (GI): Soft to palpation, nontender, no guarding, not rigid and No hepatosplenomegaly present Percussion: Yes normal to percussion Auscultation: normal bowel sounds Rectal Exam - Female: deferred General: Yes bladder normal to palpation External Female Exam: No lesion Speculum Exam - Vagina: normal appearance of the vagina, normal palpation, normal vaginal discharge and not erythematous Speculum Exam - Cervix: normal appearance of the cervix and normal palpation Bimanual exam- vagina & uterus: normal bimanual exam, normal palpation, uterine size normal, bladder normal to palpation, consistency normal and normal palp ation Bimanual Exam- Adnexa, other: normal adnexae, no masses and no tenderness Assessment & Plan Assessment & Plan (1) Well woman exam: Code(s): Z01.419 - Encounter for gynecological examination (general) (routine) without abnormal findings Category: Medical Plan: Co testing done. Counseled the patient about the recommended dietary allowance of 1200 mg of Calcium & 600 IU of vitamin D. Mammogram ordered. GI referral for screening colonoscopy placed The patient was instructed to perform monthly self-breast exams and schedule annual exam in a year. All questions answered and the patient verbalized understanding. Orders: Orders MM tomosynthesis screening BI Today Z12.31 - Encounter for screening mammogram for malignant neoplasm of breast Referrals Gastroenterology Referral Z12.11 - Encounter for screening for malignant neoplasm of colon Coding Level of Care Code Est Pt Prev Care 40-64y(91932) Diagnoses Well woman exam Z01.419
[2025-05-26 11:42] VITALS: BP 110/66; BMI 30.7
== END 2025-05-26 12:39 | disposition home or self-care (01) ==
LOC: HO.HWS 11:21
PROVIDERS: PCP Student in an Organized Health Care Education/Training Program; Visit Provider Obstetrics & Gynecology
DX: Z01.419 Encounter for gynecological examination (general) (routine) without abnormal findings (principal)
CPT/HCPCS: 99396; 99459

== ENCOUNTER 2025-06-14 15:44 | Outpatient (AMB) | payer MEDICARE, MEDICAID, SELFPAY ==
--- NOTE | 2025-06-14 16:02 | MHC.OFFVIS ---
Intake Visit Reasons: B/L hand tremor Allergies abacavir (ABACAVIR) Allergy (Severe, Verified 05/26/25 11:49) HIVES hydrochlorothiazide (HYDROCHLOROTHIAZIDE) Allergy (Severe, Verified 05/26/25 11:49) HIVES ibuprofen (From MOTRIN) Allergy (Severe, Verified 05/26/25 11:49) HIVES Penicillins (PENICILLINS) Allergy (Severe, Verified 05/26/25 11:49) HIVES tenofovir (From VIREAD) Allergy (Severe, Verified 05/26/25 11:49) HIVES tomato (TOMATO) Allergy (Severe, Verified 05/26/25 11:49) HIVES zidovudine (From RETROVIR) Allergy (Severe, Verified 05/26/25 11:49) HIVES lactose (Lactose) Adverse Reaction (Mild, Verified 05/26/25 11:49) DIARRHEA disoproxail Allergy (Mild, Uncoded 05/26/25 11:49) Unknown fumarate Allergy (Uncoded 05/26/25 11:49) Unknown hydrovenzthiazide Allergy (Uncoded 05/26/25 11:49) Unknown HPI Comments Details: 64 year-old woman with a complex neuropsychiatric hx including remote hx of psychosis, developmental delay, hx of HIV, 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 She is presenting for neurological evaluation due to a failed memory test and auditory hallucinations. She was referred by her PCP after she failed a memory test at her annual wellness visit. She reports persistent auditory hallucinations of her son's voice, which sometimes instruct her not to eat or drink. She has a history of psychiatric issues and was hospitalized in 2022 for aggression and an increase in these hallucinations. The patient's past medical history is significant for HIV/AIDS, for which she is followed by infectious disease, hematology, and oncology specialists. She has a history of multiple falls, including one down a flight of stairs and another from her bed, which required a stay in a rehabilitation facility. She has experienced dizziness that was investigated by cardiology without a clear etiology identified. She also reports migraines, increased urinary incontinence, and no recent seizures. There is a long history of substance abuse. Socially, the patient was born in [place] in 1960 and attended school there but did not complete high school due to at age 18. She has seven children from two marriages and has lived in a penitentiary for approximately 36 years. Her independence has reportedly decreased, and she requires more support. COUNT INCLUDES [facility] Medical History Tremor of both hands Positive serological reaction for syphilis Hypothyroidism Hx of acute pancreatitis Hx of acute renal failure History of ETOH abuse Hx of herpes genitalis History of diverticulosis Constipation History of intravenous drug abuse Developmental delay, mild COVID-19 vaccine series completed Depression PTSD (post-traumatic stress disorder) Hyperlipidemia Seasonal allergies Hx of hepatitis C HIV (human immunodeficiency virus infection) Nocturia Frequency of micturition Surgical History History of colonoscopy Family History Mother Alzheimer disease Breast cancer HTN (hypertension) Paternal Aunt Breast cancer Social History Household Members: None Household Members Other:: [employer] Housing: Apartment Housing Other:: [facility] Are you a primary wound care technician to a significant other at home: No Do you presently have visiting nurse or other home services: Yes Alcohol intake: never Patient Tobacco Use Status: Never used Tobacco e-Cigarette/Vaping Use: Never Used Second Hand Smoke Exposure: No service: No Sexual orientation: Decline to Answer Female Reproductive History Menstrual Age of Menarche: 11 Review of Systems Narrative - Psychiatric: Reports auditory hallucinations of her son's voice. - Denies suicidal ideation. - Neurological: Reports memory impairment, dizziness, and migraines. - Denies recent seizures. - Constitutional: Reports decreased oral intake due to hallucinations. - Genitourinary: Reports increased incontinence. - Integumentary: Reports dry skin. Physical Exam Neuro Other: Mental Status: Alert and oriented to person, place, and time. Normal attention. Normal spontaneous speech, fluency, and comprehension. Cranial Nerves: CN II: Visual stone full to confrontation, visual acuity intact. CN III, IV, : Pupils equal, round, reactive to light and accommodation. Extraocular movements are normal. CN V: Facial sensation is normal. CN VII: Facial movements symmetrical. CN VIII: Hearing intact to bedside conversation is normal. CN IX, X: Palate elevates symmetrically. CN XI: Shoulder shrug and head turn symmetrical. CN XII: Tongue midline without atrophy or fasciculations. Motor: Cautious with a walker Extrapyramidal: Full facial expressions and blinking. No rigidity. Movements are appropriate with no tremor or abnormality. Speech: Normal; no dysarthria or tremor. Results Reviewed Results Reviewed: [address] [address] [address] Scan Report Signed Patient: Adrianne Caballero MR#: [id number] : 1960 Acct:[id number] Age/Sex: 64 / F ADM Date: 04/12/25 Loc: HO.ED Attending Dr: Ordering Physician: Quinn Pena Date of Service: 04/12/25 Procedure(s): CT head/brain wo IV con Accession Number(s): [id number] cc: Quinn Pena; [facility]~ Report Number: [id number]: Total DLP = 610.00 mGy-cm Reason for Exam: Fall CLINICAL HISTORY: Fall CT head without contrast Comparison: CT/SR - CT HEAD/BRAIN WO IV CON - 07/14/24 08:22 EST Findings: BRAIN: No acute infarct, hemorrhage, or mass effect. No abnormal atrophy. CSF SPACES: No hydrocephalus or effacement of basal cisterns. SKULL: No calvarial fracture. SINUSES: No significant mucosal thickening or effusion on limited views. ORBITS: Limited views are unremarkable. OTHER: Negative. IMPRESSION: 1. No acute intracranial findings. Assessment & Plan Assessment & Plan (1) Cerebellar atrophy: Comment: CT brain WO at [facility] in 2024: Mod severe cerebellar more than cerebral atrophy Code(s): G31.9 - Degenerative disease of nervous system, unspecified Category: Medical (2) Chronic static encephalopathy: Code(s): G93.49 - Other encephalopathy Category: Medical (3) Migraine: Code(s): G43.909 - Migraine, unspecified, not intractable, without status migrainosus Category: Medical Qualifiers: Intractability: not intractable Migraine type: migraine (< 15 days per month) with aura Status migrainosus presence: without status migrainosus Qualified Code(s): G43.109 - Migraine with aura, not intractable, without status migrainosus (4) Cognitive decline: Code(s): R41.89 - Other symptoms and signs involving cognitive functions and awareness Category: Medical Plan Impression: a: Chronic encephalopathy probably from a genetic cause b: Complex psychiatric history with psychotic symptoms c: H/O Drug abuse d: HIV disease e: Complex behavioral issues f: Cognitive decline not unexpected as she grows older g: Significant cerebellar atrophy that may result in gait disorder Rec: a: EEG to r/o any tendency for seizure do b: Conservative and supportive measures c: B12/folate I discussed the plan with the patient and her caregiver. I explained that I am ordering an EEG to evaluate her brain wave activity and a blood test to check her vitamin B12 level as part of the workup for her memory issues and hallucinations. I also informed them that no changes will be made to her current medication regimen at this visit. The caregiver provided a signature to acknowledge the plan. Orders: Orders EEG Routine 06/14/25 G40.909 - Epilepsy, unspecified, not intractable, without status epilepticus Vitamin B12 and Folate 06/14/25 R41.89 - Other symptoms and signs involving cognitive functions and awareness Coding Level of Care Code New Pt Level 4 (14379) Diagnoses Cerebellar atrophy G31.9 Chronic static encephalopathy G93.49 Migraine with aura and without status migrainosus, not intractable G43.109 Intractability: not intractable Migraine type: migraine (< 15 days per month) with aura Status migrainosus presence: without status migrainosus Cognitive decline R41.89
--- OUTSIDE RECORDS SUMMARY | 2025-06-15 01:19 | XMS_ITS | Encounter Summary ---
Author Organization [facility] Address [address] [place] [address] Care Team Providers Care Touch Up Worker Name Role Phone LindsayNina Salma NGUYEN Primary Care Provider Encounter Details Date Type Department Care Team (Late st Contact Info) Description 07/31/2024 Lab Requisition [facility] Main Lab [address] [facility] [place] [address] Stephanie Celis MD [address] [address] Hyperlipidemia, unspecified; Hypothyroidism, unspecified Social History Tobacco [...] AM EDT Office Visit Orthopedic Surgery - [place] [address] [phone] Ulices Crowell, DPSwati [address] [address] documented as of this encounter Procedures Procedure Name Priority Date/Time Associated Diagnosis Comments COMPLETE BLOOD COUNT Routine 08/03/2024 7:57 AM EST Hyperlipidemia, unspecified Hypothyroidism, unspecified BASIC METABOLIC PANEL Routine 08/03/2024 7:57 AM EST Hyperlipidemia, unspecified Hypothyroidism, unspecified documented in this encounter Results * (ABNORMAL) Basic metabolic panel (08/03/2024 7:57 AM EST) Sodium 138 133 - 145 mmol/L LAB CHEMISTRY METHOD 08/03/2024 12:20 PM [facility] Potassium 4.3 3.5 - 5.5 mmol/L LAB CHEMISTRY METHOD 08/03/2024 12:20 PM [facility] Chloride 104 96 - 110 mmol/L LAB CHEMISTRY METHOD 08/03/2024 12:20 PM [facility] CO2 28 21 - 32 mmol/L LAB CHEMISTRY METHOD 08/03/2024 12:20 PM [facility] Anion Gap 6 3 - 11 LAB CHEMISTRY METHOD 08/03/2024 12:20 PM [facility] Glucose 107(H) 70 - 100 mg/dL LAB CHEMISTRY METHOD 08/03/2024 12:20 PM [facility] BUN 14 5 - 25 mg/dL LAB CHEMISTRY METHOD 08/03/2024 12:20 PM [facility] Creatinine 1.23(H) 0.50 - 1.10 mg/dL LAB CHEMISTRY METHOD 08/03/2024 12:20 PM [facility] eGFR 50(L) >=60 mL/min/1. 73m2 LAB CHEMISTRY METHOD 08/03/2024 12:20 PM [facility] Comment:Calculation based on the Chronic Kidney Disease Epidemiology Collaboration (CKD-EPI) equation refit without adjustment for race. BUN/Creatinine Ratio 11.4 LAB CHEMISTRY METHOD 08/03/2024 12:20 PM [facility] Calcium 8.9 8.5 - 10.5 mg/dL LAB CHEMISTRY METHOD 08/03/2024 12:20 PM [facility] Blood Venous blood specimen / Unknown Venipuncture / Unknown 08/03/2024 7:57 AM EST 08/03/2024 11:09 AM EST Stephanie Celis MD LAB BLOOD ORDERABLES Fin al Result [facility] [address] [place] [address], * (ABNORMAL) Complete blood count (08/03/2024 7:57 AM EST) WBC 2.5(L) 4.8 - 10.8 K/mcL LAB HEMETOLOGY METHOD 08/03/2024 1:03 PM [facility] RBC 2.60(L) 3.80 - 4.80 M/mcL LAB HEMETOLOGY METHOD 08/03/2024 1:03 PM [facility] Hemoglobin 10.0(L) 11.5 - 16.0 g/dL LAB HEMETOLOGY METHOD 08/03/2024 1:03 PM [facility] Hematocrit 30.5(L) 35.0 - 47.0 % LAB HEMETOLOGY METHOD 08/03/2024 1:03 PM [facility] MCV 117.8(H) 79.0 - 98.0 FL LAB HEMETOLOGY METHOD 08/03/2024 1:03 PM [facility] MCH 38.6(H) 27.0 - 32.0 pcg LAB HEMETOLOGY METHOD 08/03/2024 1:03 PM [facility] MCHC 32.8 32.0 - 37.0 g/dL LAB HEMETOLOGY METHOD 08/03/2024 1:03 PM [facility] RDW 12.2 11.0 - 15.0 % LAB HEMETOLOGY METHOD 08/03/2024 1:03 PM [facility] Platelets 78(L) 130 - 400 K/mcL LAB HEMETOLOGY METHOD 08/03/2024 1:03 PM [facility] Comment:reviewed by slide MPV 9.6 7.0 - 11.0 FL LAB HEMETOLOGY METHOD 08/03/2024 1:03 PM EST [facility] NRBC 0.0 <1.0 % LAB HEMETOLOGY METHOD 08/03/2024 1:03 PM EST [facility] NRBC Absolute 0.00 <0.10 K/mcL LAB HEMETOLOGY METHOD 08/03/2024 1:03 PM EST [facility] Blood Venous blood specimen / Unknown Venipuncture / Unknown 08/03/2024 7:57 AM EST 08/03/2024 11:09 AM EST us Stephanie Celis MD LAB BLOOD ORDERABLES Fin al Result [facility] [address] [place] [address], documented in this encounter Visit Diagnoses Diagnosis Hyperlipidemia, unspecified Hypothyroidism, unspecified documented in this encounter Care Teams Touch Up Worker Relationship Specialty Start Date End Date Nina Lindsay NP [address] [phone] PCP - General 10/07/23 documented as of this encounter
--- OUTSIDE RECORDS SUMMARY | 2025-06-15 01:19 | XMS_ITS | Encounter Summary ---
Author Organization [facility] Address [address] [place] [address] Care Team Providers Care Document Image Technician Name Role Phone Neftali Nina Marsh NP Primary Care Provider [phone] Encounter Details Date Type Department Care Team (Late st Contact Info) Description 09/29/2024 Lab Requisition [facility] [address] [facility] [place] [address] Stephanie Celis MD [address] [address] Hyperlipidemia, unspecified; Unspecified cirrhosis of liver (CMS/HCC [...] AM EDT Office Visit Orthopedic Surgery - [place] [address] [phone] Ulices Crowell, TRACY [address] [address] documented as of this encounter Procedures Procedure Name Priority Date/Time Associated Diagnosis Comments COMPLETE BLOOD COUNT Routine 09/29/2024 8:28 AM EDT Hyperlipidemia, unspecified Unspecified cirrhosis of liver (CMS/HCC) Chronic kidney disease, stage 3 unspecified (CMS/HCC) documented in this encounter Results * (ABNORMAL) Complete blood count (09/29/2024 8:28 AM EDT) [facility] Signature WBC 4.0(L) 4.8 - 10.8 K/mcL LAB HEMETOLOGY METHOD 09/29/2024 10:51 AM [facility] RBC 3.50(L) 3.80 - 4.80 M/mcL LAB HEMETOLOGY METHOD 09/29/2024 10:51 AM EDT [facility] Hemoglobin 12.9 11.5 - 16.0 g/dL LAB HEMETOLOGY METHOD 09/29/2024 10:51 AM [facility] Hematocrit 39.1 35.0 - 47.0 % LAB HEMETOLOGY METHOD 09/29/2024 10:51 AM [facility] MCV 111.1(H) 79.0 - 98.0 FL LAB HEMETOLOGY METHOD 09/29/2024 10:51 AM [facility] MCH 36.6(H) 27.0 - 32.0 pcg LAB HEMETOLOGY METHOD 09/29/2024 10:51 AM [facility] MCHC 33.0 32.0 - 37.0 g/dL LAB HEMETOLOGY METHOD 09/29/2024 10:51 AM [facility] RDW 13.1 11.0 - 15.0 % LAB HEMETOLOGY METHOD 09/29/2024 10:51 AM [facility] Platelets 101(L) 130 - 400 K/mcL LAB HEMETOLOGY METHOD 09/29/2024 10:51 AM [facility] MPV 9.5 7.0 - 11.0 FL LAB HEMETOLOGY METHOD 09/29/2024 10:51 AM [facility] NRBC 0.0 <1.0 % LAB HEMETOLOGY METHOD 09/29/2024 10:51 AM EDT [facility] NRBC Absolute 0.00 <0.10 K/mcL LAB HEMETOLOGY METHOD 09/29/2024 10:51 AM EDT [facility] Blood Venous blood specimen / Unknown Venipuncture / Unknown 09/29/2024 8:28 AM EDT 09/29/2024 10:07 AM EDT us Stephanie Celis MD LAB BLOOD ORDERABLES Fin al Result [facility] [address] [place] [address], documented in this encounter Visit Diagnoses Diagnosis Hyperlipidemia, unspecified Unspecified cirrhosis of liver (CMS/HCC V24, CMS/HCC V28) Chronic kidney disease, stage 3 unspecified (CMS/HCC V24, CMS/HCC V28) documented in this encounter Care Teams Document Image Technician Relationship Specialty Start Date End Date Nina Lindsay NP [address] [place] [phone] PCP - General 10/07/23 documented as of this encounter
--- OUTSIDE RECORDS SUMMARY | 2025-06-15 01:19 | XMS_ITS | Encounter Summary ---
Author Organization [facility] Address [address] [place] [address] Care Team Providers Care Speech Therapist Early Intervention Name Role Phone Neftali Nina Marsh NP Primary Care Provider [phone] Encounter Details Date Type Department Care Team (Late st Contact Info) Description 07/27/2024 Lab Requisition [facility] Lab 299 [facility] [place] [address] Stephanie Celis MD [address] [phone] Vitamin D deficiency, unspecified; Chronic kidney disease, [...] AM EDT Office Visit Orthopedic Surgery - [place] 250 175 [facility] 250 [place] [phone] Ulices Crowell, DPSwati [address] [address] documented as of this encounter Procedures Procedure [...] LAB CHEMISTRY METHOD 07/27/2024 2:34 PM EST [facility] Blood Venous blood specimen / Unknown Venipuncture / Unknown 07/27/2024 5:39 AM EST 07/27/2024 12:17 PM EST Stephanie Celis MD LAB BLOOD ORDERABLES Fin al Result [facility] [address] [place] [address], [place] [phone] * Vitamin D 25 hydroxy (07/27/2024 5:39 AM EST) Pathologist [facility] Vit D, 25-Hydroxy 55.9 30.0 - 80.0 ng/mL LAB CHEMISTRY METHOD 07/27/2024 2:19 PM EST [facility] Blood Venous blood specimen / Unknown Venipuncture / Unknown 07/27/2024 5:39 AM EST 07/27/2024 12:17 PM EST Stephanie Celis MD LAB BLOOD ORDERABLES Fin al Result [facility] [address] [place] [address], [place] [phone] * Magnesium (07/27/2024 5:39 AM EST) Pathologist [facility] Magnesium 2.5 1.9 - 2.6 mg/dL LAB CHEMISTRY METHOD 07/27/2024 2:12 PM EST [facility] Blood Venous blood specimen / Unknown Venipuncture / Unknown 07/27/2024 5:39 AM EST 07/27/2024 12:17 PM EST Stephanie Celis MD LAB BLOOD ORDERABLES Fin al Result Performing Organization Address City/[facility]/ZIP Co de Phone Number [facility] [address] [place] [address], [place] [phone] * (ABNORMAL) Folate (07/27/2024 5:39 AM EST) Folate >20.0(H) 2.8 - 17.0 ng/ml LAB CHEMISTRY METHOD 07/27/2024 2:34 PM EST [facility] Blood Venous blood specimen / Unknown Venipuncture / Unknown 07/27/2024 5:39 AM EST 07/27/2024 12:17 PM EST Stephanie Celis MD LAB BLOOD ORDERABLES Fin al Result Performing Organization Address [facility]/ZIP Co de Phone Number [facility] [address] [place] [address], [place] [phone] * (ABNORMAL) Thyroid stimulating hormone (07/27/2024 5:39 AM EST) TSH 5.52(H) 0.40 - 4.00 mcIU/mL LAB CHEMISTRY METHOD 07/27/2024 2:19 PM EST [facility] Blood Venous blood specimen / Unknown Venipuncture / Unknown 07/27/2024 5:39 AM EST 07/27/2024 12:17 PM EST Stephanie Celis MD LAB BLOOD ORDERABLES Fin al Result Performing Organization Address City/[facility]/ZIP Co de Phone Number [facility] [address] [place] [address], [place] [phone] * (ABNORMAL) Comprehensive metabolic panel (07/27/2024 5:39 AM EST) Sodium 138 133 - 145 mmol/L LAB CHEMISTRY METHOD 07/27/2024 2:12 PM EST [facility] Potassium 4.3 3.5 - 5.5 mmol/L LAB CHEMISTRY METHOD 07/27/2024 2:12 PM [facility] Chloride 102 96 - 110 mmol/L LAB CHEMISTRY METHOD 07/27/2024 2:12 PM [facility] CO2 30 21 - 32 mmol/L LAB CHEMISTRY METHOD 07/27/2024 2:12 PM [facility] Anion Gap 6 3 - 11 LAB CHEMISTRY METHOD 07/27/2024 2:12 PM [facility] Glucose 115(H) 70 - 100 mg/dL LAB CHEMISTRY METHOD 07/27/2024 2:12 PM [facility] BUN 14 5 - 25 mg/dL LAB CHEMISTRY METHOD 07/27/2024 2:12 PM [facility] Creatinine 1.09 0.50 - 1.10 mg/dL LAB CHEMISTRY METHOD 07/27/2024 2:12 PM [facility] eGFR 58(L) >=60 mL/min/1. 73m2 LAB CHEMISTRY METHOD 07/27/2024 2:12 PM [facility] Comment:Calculation based on the Chronic Kidney Disease Epidemiology Collaboration (CKD-EPI) equation refit without adjustment for race. BUN/Creatinine Ratio 12.8 LAB CHEMISTRY METHOD 07/27/2024 2:12 PM [facility] Calcium 8.3(L) 8.5 - 10.5 mg/dL LAB CHEMISTRY METHOD 07/27/2024 2:12 PM [facility] AST (SGOT) 28 10 - 42 unit/L LAB CHEMISTRY METHOD 07/27/2024 2:12 PM [facility] ALT (SGPT) 14 10 - 60 unit/L LAB CHEMISTRY METHOD 07/27/2024 2:12 PM [facility] Alkaline Phosphatase 49 42 - 121 unit/L LAB CHEMISTRY METHOD 07/27/2024 2:12 PM [facility] Total Protein 6.4 6.0 - 8.0 g/dL LAB CHEMISTRY METHOD 07/27/2024 2:12 PM EST [facility] Albumin 2.7(L) 3.2 - 5.0 g/dL LAB CHEMISTRY METHOD 07/27/2024 2:12 PM [facility] Total Bilirubin 0.6 0.0 - 1.4 mg/dL LAB CHEMISTRY METHOD 07/27/2024 2:12 PM [facility] Blood Venous blood specimen / Unknown Venipuncture / Unknown 07/27/2024 5:39 AM EST 07/27/2024 12:17 PM EST us Stephanie Celis MD LAB BLOOD ORDERABLES Fin al Result [facility] [address] [place] [address], * (ABNORMAL) Complete blood count (07/27/2024 5:39 AM EST) WBC 3.4(L) 4.8 - 10.8 K/mcL LAB HEMETOLOGY METHOD 07/27/2024 1:38 PM [facility] RBC 2.50(L) 3.80 - 4.80 M/mcL LAB HEMETOLOGY METHOD 07/27/2024 1:38 PM [facility] Hemoglobin 10.0(L) 11.5 - 16.0 g/dL LAB HEMETOLOGY METHOD 07/27/2024 1:38 PM [facility] Hematocrit 31.1(L) 35.0 - 47.0 % LAB HEMETOLOGY METHOD 07/27/2024 1:38 PM [facility] MCV 122.4(H) 79.0 - 98.0 FL LAB HEMETOLOGY METHOD 07/27/2024 1:38 PM [facility] MCH 39.4(H) 27.0 - 32.0 pcg LAB HEMETOLOGY METHOD 07/27/2024 1:38 PM EST [facility] MCHC 32.2 32.0 - 37.0 g/dL LAB HEMETOLOGY METHOD 07/27/2024 1:38 PM [facility] RDW 12.6 11.0 - 15.0 % LAB HEMETOLOGY METHOD 07/27/2024 1:38 PM [facility] Platelets 150 130 - 400 K/mcL LAB HEMETOLOGY METHOD 07/27/2024 1:38 PM [facility] MPV 9.4 7.0 - 11.0 FL LAB HEMETOLOGY METHOD 07/27/2024 1:38 PM [facility] NRBC 0.0 <1.0 % LAB HEMETOLOGY METHOD 07/27/2024 1:38 PM [facility] NRBC Absolute 0.00 <0.10 K/mcL LAB HEMETOLOGY METHOD 07/27/2024 1:38 PM [facility] Blood Venous blood specimen / Unknown Venipuncture / Unknown 07/27/2024 5:39 AM EST 07/27/2024 12:17 PM EST us Stephanie Celis MD LAB BLOOD ORDERABLES Fin al Result [facility] [address] [place] [address], documented in this encounter Visit Diagnoses Diagnosis [...] to a substance or known physiological condition (CMS/[facility] V24, [facility] V28) Human immunodeficiency virus (HIV) disease ([facility] V24, [facility] V28) Human immunodeficiency virus [HIV] disease Hypothyroidism, unspecified COVID-19 documented in this encounter Care Teams Speech Therapist Early Intervention Relationship Specialty Start Date End Date Nina Lindsay NP [address] [place] [phone] PCP - General 10/07/23 documented as of this encounter
--- OUTSIDE RECORDS SUMMARY | 2025-06-15 01:19 | XMS_ITS | Encounter Summary ---
Author Organization [facility] Address [address] [place] [address] Care Team Providers Care Associate Product Manager Name Role Phone LindsayNina Salma NGUYEN Primary Care Provider [phone] Encounter Details Date Type Department Care Team (Late st Contact Info) Description 08/23/2024 Lab Requisition [facility] 299 [facility] [place] [address] Stephanie Celis MD [address] [address] Hypothyroidism, unspecified; Hyperlipidemia, unspecified Social History Tobacco [...] AM EDT Office Visit Orthopedic Surgery - [place] [address] [address] Ulices Crowell, DPSwati [address] [address] documented as of this encounter Procedures Procedure Name Priority Date/Time Associated Diagnosis Comments COMPLETE BLOOD COUNT Routine 08/24/2024 6:57 AM EST Hypothyroidism, unspecified Hyperlipidemia, unspecified BASIC METABOLIC PANEL Routine 08/24/2024 6:57 AM EST Hypothyroidism, unspecified Hyperlipidemia, unspecified documented in this encounter Results * (ABNORMAL) Basic metabolic panel (08/24/2024 6:57 AM EST) Sodium 141 133 - 145 mmol/L LAB CHEMISTRY METHOD 08/24/2024 11:16 AM [facility] Potassium 3.2(L) 3.5 - 5.5 mmol/L LAB CHEMISTRY METHOD 08/24/2024 11:16 AM [facility] Chloride 105 96 - 110 mmol/L LAB CHEMISTRY METHOD 08/24/2024 11:16 AM [facility] CO2 26 21 - 32 mmol/L LAB CHEMISTRY METHOD 08/24/2024 11:16 AM [facility] Anion Gap 10 3 - 11 LAB CHEMISTRY METHOD 08/24/2024 11:16 AM [facility] Glucose 87 70 - 100 mg/dL LAB CHEMISTRY METHOD 08/24/2024 11:16 AM [facility] BUN 15 5 - 25 mg/dL LAB CHEMISTRY METHOD 08/24/2024 11:16 AM [facility] Creatinine 1.38(H) 0.50 - 1.10 mg/dL LAB CHEMISTRY METHOD 08/24/2024 11:16 AM [facility] eGFR 43(L) >=60 mL/min/1. 73m2 LAB CHEMISTRY METHOD 08/24/2024 11:16 AM [facility] Comment:Calculation based on the Chronic Kidney Disease Epidemiology Collaboration (CKD-EPI) equation refit without adjustment for race. BUN/Creatinine Ratio 10.9 LAB CHEMISTRY METHOD 08/24/2024 11:16 AM [facility] Calcium 8.5 8.5 - 10.5 mg/dL LAB CHEMISTRY METHOD 08/24/2024 11:16 AM [facility] Blood Venous blood specimen / Unknown Venipuncture / Unknown 08/24/2024 6:57 AM EST 08/24/2024 10:21 AM EST Stephanie Celis MD LAB BLOOD ORDERABLES Fin al Result [facility] [address] [place] [address], * (ABNORMAL) Complete blood count (08/24/2024 6:57 AM EST) WBC 2.4(L) 4.8 - 10.8 K/mcL LAB HEMETOLOGY METHOD 08/24/2024 10:58 AM [facility] RBC 2.70(L) 3.80 - 4.80 M/mcL LAB HEMETOLOGY METHOD 08/24/2024 10:58 AM [facility] Hemoglobin 10.1(L) 11.5 - 16.0 g/dL LAB HEMETOLOGY METHOD 08/24/2024 10:58 AM [facility] Hematocrit 31.4(L) 35.0 - 47.0 % LAB HEMETOLOGY METHOD 08/24/2024 10:58 AM [facility] MCV 118.0(H) 79.0 - 98.0 FL LAB HEMETOLOGY METHOD 08/24/2024 10:58 AM [facility] MCH 38.0(H) 27.0 - 32.0 pcg LAB HEMETOLOGY METHOD 08/24/2024 10:58 AM [facility] MCHC 32.2 32.0 - 37.0 g/dL LAB HEMETOLOGY METHOD 08/24/2024 10:58 AM [facility] RDW 13.5 11.0 - 15.0 % LAB HEMETOLOGY METHOD 08/24/2024 10:58 AM [facility] Platelets 33(L) 130 - 400 K/mcL LAB HEMETOLOGY METHOD 08/24/2024 10:58 AM [facility] Comment:previously verified by slide MPV 9.3 7.0 - 11.0 FL LAB HEMETOLOGY METHOD 08/24/2024 10:58 AM EST [facility] NRBC 0.0 <1.0 % LAB HEMETOLOGY METHOD 08/24/2024 10:58 AM EST [facility] NRBC Absolute 0.00 <0.10 K/mcL LAB HEMETOLOGY METHOD 08/24/2024 10:58 AM EST [facility] Blood Venous blood specimen / Unknown Venipuncture / Unknown 08/24/2024 6:57 AM EST 08/24/2024 10:21 AM EST us Stephanie Celis MD LAB BLOOD ORDERABLES Fin al Result [facility] [address] [place] [address], documented in this encounter Visit Diagnoses Diagnosis Hypothyroidism, unspecified Hyperlipidemia, unspecified documented in this encounter Care Teams Associate Product Manager Relationship Specialty Start Date End Date Nina Lindsay NP [address] [place] [phone] PCP - General 10/07/23 documented as of this encounter
--- OUTSIDE RECORDS SUMMARY | 2025-06-15 01:19 | XMS_ITS | Clinical Summary ---
Author Organization 175 [facility] Address 175 [place] [address] Phone Care Team Providers Care Biofuels Engineering Manager Name Role Phone Nina Lindsay NP Primary Care Provider [phone] Allergies Active Allergy Reactions Criticality Noted Date [...] AM EDT Office Visit Orthopedic Surgery - [address] [address] Ulices Crowell DPM Pain [...] AM EDT Office Visit Orthopedic Surgery - [place] 250 175 [facility] [address] [place] [phone] Ulices Crowell DPM 175 [facility] [place] [address] [place] [address] Health Maintenance Due Date Last Done Comments [...] Screening 07/08/2024 COVID-19 Vaccine ( season) 2025 05/11/2024, 08/12/2023, 04/28/2021, Additional history [...] Insurance MEDICARE MEDICAID - [place] Care Teams Biofuels Engineering Manager Relationship Specialty Start Date End Date Nina Lindsay NP [address] [place] [phone] PCP - General 10/07/23
--- OUTSIDE RECORDS SUMMARY | 2025-06-15 01:20 | XMS_ITS | Encounter Summary ---
Author Organization [facility] Address [address] [place] [address] Care Team Providers Care Team Leader Surgery Name Role Phone Neftali Nian Marsh NP Primary Care Provider [phone] Encounter Details Date Type Department Care Team (Late st Contact Info) Description 08/20/2024 Lab Requisition [facility] Lab 299 [facility] [place] [address] Stephanie Celis MD [address] [address] Acute kidney failure, unspecified (CMS/HCC V24); Chronic [...] Visit Orthopedic Surgery - [place] [address] [address] Ulices Crowell DPM [address] [address] documented as of this encounter Procedures Procedure [...] LAB CHEMISTRY METHOD 08/20/2024 9:05 AM EST [facility] Blood Venous blood specimen / Unknown Venipuncture / Unknown 08/20/2024 7:52 AM EST 08/20/2024 8:36 AM EST Stephanie Celis MD LAB BLOOD ORDERABLES Fin al Result [facility] [address] [place] [address], * (ABNORMAL) Comprehensive metabolic panel (08/20/2024 7:52 AM EST) Pathologist [facility] Sodium 139 133 - 145 mmol/L LAB CHEMISTRY METHOD 08/20/2024 9:44 AM EST [facility] Potassium 4.2 3.5 - 5.5 mmol/L LAB CHEMISTRY METHOD 08/20/2024 9:44 AM EST [facility] Chloride 104 96 - 110 mmol/L LAB CHEMISTRY METHOD 08/20/2024 9:44 AM EST [facility] CO2 31 21 - 32 mmol/L LAB CHEMISTRY METHOD 08/20/2024 9:44 AM [facility] Anion Gap 4 3 - 11 LAB CHEMISTRY METHOD 08/20/2024 9:44 AM [facility] Glucose 116(H) 70 - 100 mg/dL LAB CHEMISTRY METHOD 08/20/2024 9:44 AM [facility] BUN 14 5 - 25 mg/dL LAB CHEMISTRY METHOD 08/20/2024 9:44 AM [facility] Creatinine 1.54(H) 0.50 - 1.10 mg/dL LAB CHEMISTRY METHOD 08/20/2024 9:44 AM [facility] eGFR 38(L) >=60 mL/min/1. 73m2 LAB CHEMISTRY METHOD 08/20/2024 9:44 AM [facility] Comment:Calculation based on the Chronic Kidney Disease Epidemiology Collaboration (CKD-EPI) equation refit without adjustment for race. BUN/Creatinine Ratio 9.1 LAB CHEMISTRY METHOD 08/20/2024 9:44 AM [facility] Calcium 8.5 8.5 - 10.5 mg/dL LAB CHEMISTRY METHOD 08/20/2024 9:44 AM [facility] AST (SGOT) 22 10 - 42 unit/L LAB CHEMISTRY METHOD 08/20/2024 9:44 AM [facility] ALT (SGPT) 11 10 - 60 unit/L LAB CHEMISTRY METHOD 08/20/2024 9:44 AM [facility] Alkaline Phosphatase 38(L) 42 - 121 unit/L LAB CHEMISTRY METHOD 08/20/2024 9:44 AM [facility] Total Protein 5.9(L) 6.0 - 8.0 g/dL LAB CHEMISTRY METHOD 08/20/2024 9:44 AM [facility] Albumin 2.6(L) 3.2 - 5.0 g/dL LAB CHEMISTRY METHOD 08/20/2024 9:44 AM [facility] Total Bilirubin 0.6 0.0 - 1.4 mg/dL LAB CHEMISTRY METHOD 08/20/2024 9:44 AM [facility] Blood Venous blood specimen / Unknown Venipuncture / Unknown 08/20/2024 7:52 AM EST 08/20/2024 8:36 AM EST us Stephanie Celis MD LAB BLOOD ORDERABLES Fin al Result [facility] [address] [place] [address], * (ABNORMAL) Complete blood count (08/20/2024 7:52 AM EST) WBC 2.6(L) 4.8 - 10.8 K/mcL LAB HEMETOLOGY METHOD 08/20/2024 9:31 AM [facility] RBC 2.70(L) 3.80 - 4.80 M/mcL LAB HEMETOLOGY METHOD 08/20/2024 9:31 AM [facility] Hemoglobin 10.2(L) 11.5 - 16.0 g/dL LAB HEMETOLOGY METHOD 08/20/2024 9:31 AM [facility] Hematocrit 31.1(L) 35.0 - 47.0 % LAB HEMETOLOGY METHOD 08/20/2024 9:31 AM [facility] MCV 116.0(H) 79.0 - 98.0 FL LAB HEMETOLOGY METHOD 08/20/2024 9:31 AM [facility] MCH 38.1(H) 27.0 - 32.0 pcg LAB HEMETOLOGY METHOD 08/20/2024 9:31 AM [facility] MCHC 32.8 32.0 - 37.0 g/dL LAB HEMETOLOGY METHOD 08/20/2024 9:31 AM [facility] RDW 13.2 11.0 - 15.0 % LAB HEMETOLOGY METHOD 08/20/2024 9:31 AM EST [facility] Platelets 46(L) 130 - 400 K/mcL LAB HEMETOLOGY METHOD 08/20/2024 9:31 AM EST [facility] Comment:previously verified by slide MPV 9.4 7.0 - 11.0 FL LAB HEMETOLOGY METHOD 08/20/2024 9:31 AM EST [facility] NRBC 0.0 <1.0 % LAB HEMETOLOGY METHOD 08/20/2024 9:31 AM EST [facility] NRBC Absolute 0.00 <0.10 K/mcL LAB HEMETOLOGY METHOD 08/20/2024 9:31 AM EST [facility] Blood Venous blood specimen / Unknown Venipuncture / Unknown 08/20/2024 7:52 AM EST 08/20/2024 8:36 AM EST us Stephanie Celis MD LAB BLOOD ORDERABLES Fin al Result [facility] [address] [place] [address], documented in this encounter Visit Diagnoses Diagnosis Acute kidney failure, unspecified (CMS/HCC V24) Acute kidney failure, unspecified Chronic kidney disease, stage 3 unspecified (CMS/HCC V24, CMS/HCC V28) Human immunodeficiency virus (HIV) disease (CMS/HCC V24, CMS/HCC V28) Human immunodeficiency virus [HIV] disease documented in this encounter Care Teams Team Leader Surgery Relationship Specialty Start Date End Date Nina Lindsay NP [address] [place] [phone] PCP - General 10/07/23 documented as of this encounter
--- OUTSIDE RECORDS SUMMARY | 2025-06-15 01:20 | XMS_ITS | Encounter Summary ---
Author Organization [facility] Address [address] [place] [address] Care Team Providers Care Oyster Buyer Name Role Phone NeftailNina Salma NGUYEN Primary Care Provider [phone] Encounter Details Date Type Department Care Team (Late st Contact Info) Description 08/26/[address] [facility] - Main Lab [address] [place] [address] Stephanie Celis MD [address] [address] Anemia, unspecified Social History Tobacco Use Types [...] AM EDT Office Visit Orthopedic Surgery - [place] 250 175 [facility] 250 [place] [phone] Ulices Crowell, TRACY [address] [address] documented as of this encounter Procedures Procedure Name Priority Date/Time Associated Diagnosis Comments COMPLETE BLOOD COUNT Routine 08/27/2024 7:46 AM EST Anemia, unspecified documented in this encounter Results * (ABNORMAL) Complete blood count (08/27/2024 7:46 AM EST) WBC 1.9(LL) 4.8 - 10.8 K/[facility] LAB HEMETOLOGY METHOD 08/27/2024 12:41 PM [facility] RBC 2.60(L) 3.80 - 4.80 M/mcL LAB HEMETOLOGY METHOD 08/27/2024 12:41 PM [facility] Hemoglobin 9.8(L) 11.5 - 16.0 g/dL LAB HEMETOLOGY METHOD 08/27/2024 12:41 PM [facility] Hematocrit 30.2(L) 35.0 - 47.0 % LAB HEMETOLOGY METHOD 08/27/2024 12:41 PM [facility] MCV 115.7(H) 79.0 - 98.0 FL LAB HEMETOLOGY METHOD 08/27/2024 12:41 PM [facility] MCH 37.5(H) 27.0 - 32.0 pcg LAB HEMETOLOGY METHOD 08/27/2024 12:41 PM [facility] MCHC 32.5 32.0 - 37.0 g/dL LAB HEMETOLOGY METHOD 08/27/2024 12:41 PM [facility] RDW 13.2 11.0 - 15.0 % LAB HEMETOLOGY METHOD 08/27/2024 12:41 PM [facility] Platelets 30(L) 130 - 400 K/mcL LAB HEMETOLOGY METHOD 08/27/2024 12:41 PM [facility] Comment:previously verified by slide MPV 9.9 7.0 - 11.0 FL LAB HEMETOLOGY METHOD 08/27/2024 12:41 PM [facility] NRBC 0.0 <1.0 % LAB HEMETOLOGY METHOD 08/27/2024 12:41 PM [facility] NRBC Absolute 0.00 <0.10 K/mcL LAB HEMETOLOGY METHOD 08/27/2024 12:41 PM [facility] Blood Venous blood specimen / Unknown 08/27/2024 7:46 AM EST 08/27/2024 11:46 AM EST us Stephanie Celis MD LAB BLOOD ORDERABLES Fin al Result [facility] [address] [place] [address], documented in this encounter Visit Diagnoses Diagnosis Anemia, unspecified documented in this encounter Care Teams Oyster Buyer Relationship Specialty Start Date End Date Nina Lindsay NP [address] [place] [phone] PCP - General 10/07/23 documented as of this encounter
--- OUTSIDE RECORDS SUMMARY | 2025-06-15 01:20 | XMS_ITS | Encounter Summary ---
Author Organization [facility] Address [address] [place] [address] Care Team Providers Care Mixing Picker Tender Name Role Phone LindsayNina Salma NGUYEN Primary Care Provider [phone] Encounter Details Date Type Department Care Team (Late st Contact Info) Description 08/07/2024 Lab Requisition [facility] - Main Lab 299 [facility] [place] [address] Stephanie Celis MD [address] [address] Hyperlipidemia, unspecified; Hypothyroidism, unspecified Social History Tobacco [...] AM EDT Office Visit Orthopedic Surgery - [place] [address] [address] Ulices Crowell, DPSwati [address] [address] documented as of this encounter Procedures Procedure Name Priority Date/Time Associated Diagnosis Comments COMPLETE BLOOD COUNT Routine 08/10/2024 8:44 AM EST Hyperlipidemia, unspecified Hypothyroidism, unspecified BASIC METABOLIC PANEL Routine 08/10/2024 8:44 AM EST Hyperlipidemia, unspecified Hypothyroidism, unspecified documented in this encounter Results * (ABNORMAL) Basic metabolic panel (08/10/2024 8:44 AM EST) Sodium 139 133 - 145 mmol/L LAB CHEMISTRY METHOD 08/10/2024 1:16 PM [facility] Potassium 3.6 3.5 - 5.5 mmol/L LAB CHEMISTRY METHOD 08/10/2024 1:16 PM [facility] Chloride 103 96 - 110 mmol/L LAB CHEMISTRY METHOD 08/10/2024 1:16 PM [facility] CO2 29 21 - 32 mmol/L LAB CHEMISTRY METHOD 08/10/2024 1:16 PM [facility] Anion Gap 7 3 - 11 LAB CHEMISTRY METHOD 08/10/2024 1:16 PM [facility] Glucose 128(H) 70 - 100 mg/dL LAB CHEMISTRY METHOD 08/10/2024 1:16 PM [facility] BUN 22 5 - 25 mg/dL LAB CHEMISTRY METHOD 08/10/2024 1:16 PM [facility] Creatinine 1.37(H) 0.50 - 1.10 mg/dL LAB CHEMISTRY METHOD 08/10/2024 1:16 PM [facility] eGFR 44(L) >=60 mL/min/1. 73m2 LAB CHEMISTRY METHOD 08/10/2024 1:16 PM [facility] Comment:Calculation based on the Chronic Kidney Disease Epidemiology Collaboration (CKD-EPI) equation refit without adjustment for race. BUN/Creatinine Ratio 16.1 LAB CHEMISTRY METHOD 08/10/2024 1:16 PM [facility] Calcium 8.5 8.5 - 10.5 mg/dL LAB CHEMISTRY METHOD 08/10/2024 1:16 PM [facility] Blood Venous blood specimen / Unknown Venipuncture / Unknown 08/10/2024 8:44 AM EST 08/10/2024 11:11 AM EST Stephanie Celis MD LAB BLOOD ORDERABLES Fin al Result [facility] [address] [place] [address], * (ABNORMAL) Complete blood count (08/10/2024 8:44 AM EST) WBC 3.9(L) 4.8 - 10.8 K/mcL LAB HEMETOLOGY METHOD 08/10/2024 12:39 PM [facility] RBC 2.60(L) 3.80 - 4.80 M/mcL LAB HEMETOLOGY METHOD 08/10/2024 12:39 PM [facility] Hemoglobin 9.9(L) 11.5 - 16.0 g/dL LAB HEMETOLOGY METHOD 08/10/2024 12:39 PM [facility] Hematocrit 30.5(L) 35.0 - 47.0 % LAB HEMETOLOGY METHOD 08/10/2024 12:39 PM [facility] MCV 116.4(H) 79.0 - 98.0 FL LAB HEMETOLOGY METHOD 08/10/2024 12:39 PM [facility] MCH 37.8(H) 27.0 - 32.0 pcg LAB HEMETOLOGY METHOD 08/10/2024 12:39 PM [facility] MCHC 32.5 32.0 - 37.0 g/dL LAB HEMETOLOGY METHOD 08/10/2024 12:39 PM [facility] RDW 12.3 11.0 - 15.0 % LAB HEMETOLOGY METHOD 08/10/2024 12:39 PM [facility] Platelets 43(L) 130 - 400 K/mcL LAB HEMETOLOGY METHOD 08/10/2024 12:39 PM [facility] Comment:previously verified by slide MPV 9.8 7.0 - 11.0 FL LAB HEMETOLOGY METHOD 08/10/2024 12:39 PM EST [facility] NRBC 0.5 <1.0 % LAB HEMETOLOGY METHOD 08/10/2024 12:39 PM EST [facility] NRBC Absolute 0.02 <0.10 K/mcL LAB HEMETOLOGY METHOD 08/10/2024 12:39 PM EST [facility] Blood Venous blood specimen / Unknown Venipuncture / Unknown 08/10/2024 8:44 AM EST 08/10/2024 11:11 AM EST us Stephanie Celis MD LAB BLOOD ORDERABLES Fin al Result [facility] [address] [place] [address], documented in this encounter Visit Diagnoses Diagnosis Hyperlipidemia, unspecified Hypothyroidism, unspecified documented in this encounter Care Teams Mixing Picker Tender Relationship Specialty Start Date End Date Nina Lindsay NP [address] [place] [phone] PCP - General 10/07/23 documented as of this encounter
--- OUTSIDE RECORDS SUMMARY | 2025-06-15 01:20 | XMS_ITS | Encounter Summary ---
Author Organization [facility] Address [address] [place] [address] Care Team Providers Care Cashier General Name Role Phone Neftali Nina Marsh NP Primary Care Provider Encounter Details Date Type Department Care Team (Late st Contact Info) Description 09/16/[address] [facility] [address] [facility] [place] [address] Stephanie Celis MD [address] [address] Hyperlipidemia, unspecified; Unspecified cirrhosis of liver (CMS/HCC [...] AM EDT Office Visit Orthopedic Surgery - [place] [address] [phone] Ulices Crowell, TRACY [address] [address] documented as of this encounter Procedures Procedure [...] mmol/L LAB CHEMISTRY METHOD 09/16/2024 11:36 AM [facility] Potassium 3.8 3.5 - 5.5 mmol/L LAB CHEMISTRY METHOD 09/16/2024 11:36 AM [facility] Chloride 104 96 - 110 mmol/L LAB CHEMISTRY METHOD 09/16/2024 11:36 AM [facility] CO2 26 21 - 32 mmol/L LAB CHEMISTRY METHOD 09/16/2024 11:36 AM [facility] Anion Gap 9 3 - 11 LAB CHEMISTRY METHOD 09/16/2024 11:36 AM [facility] Glucose 102(H) 70 - 100 mg/dL LAB CHEMISTRY METHOD 09/16/2024 11:36 AM [facility] BUN 13 5 - 25 mg/dL LAB CHEMISTRY METHOD 09/16/2024 11:36 AM [facility] Creatinine 1.25(H) 0.50 - 1.10 mg/dL LAB CHEMISTRY METHOD 09/16/2024 11:36 AM [facility] eGFR 49(L) >=60 mL/min/1. 73m2 LAB CHEMISTRY METHOD 09/16/2024 11:36 AM [facility] Comment:Calculation based on the Chronic Kidney Disease Epidemiology Collaboration (CKD-EPI) equation refit without adjustment for race. BUN/Creatinine Ratio 10.4 LAB CHEMISTRY METHOD 09/16/2024 11:36 AM [facility] Calcium 8.6 8.5 - 10.5 mg/dL LAB CHEMISTRY METHOD 09/16/2024 11:36 AM T [facility] Blood Venous blood specimen / Unknown Venipuncture / Unknown 09/16/2024 6:47 AM EDT 09/16/2024 10:10 AM EDT us Stephanie Celis MD LAB BLOOD ORDERABLES Fin al Result [facility] 299 [place] [address], [place] [phone] * (ABNORMAL) Complete blood count (09/16/2024 6:47 AM EDT) WBC 2.1(L) 4.8 - 10.8 K/mcL LAB HEMETOLOGY METHOD 09/16/2024 11:08 AM [facility] RBC 2.70(L) 3.80 - 4.80 M/mcL LAB HEMETOLOGY METHOD 09/16/2024 11:08 AM [facility] Hemoglobin 10.1(L) 11.5 - 16.0 g/dL LAB HEMETOLOGY METHOD 09/16/2024 11:08 AM [facility] Hematocrit 31.0(L) 35.0 - 47.0 % LAB HEMETOLOGY METHOD 09/16/2024 11:08 AM [facility] MCV 116.1(H) 79.0 - 98.0 FL LAB HEMETOLOGY METHOD 09/16/2024 11:08 AM [facility] MCH 37.8(H) 27.0 - 32.0 pcg LAB HEMETOLOGY METHOD 09/16/2024 11:08 AM [facility] MCHC 32.6 32.0 - 37.0 g/dL LAB HEMETOLOGY METHOD 09/16/2024 11:08 AM [facility] RDW 13.3 11.0 - 15.0 % LAB HEMETOLOGY METHOD 09/16/2024 11:08 AM EDT [facility] Platelets 68(L) 130 - 400 K/mcL LAB HEMETOLOGY METHOD 09/16/2024 11:08 AM EDT [facility] Comment:previously verified by slide MPV 9.1 7.0 - 11.0 FL LAB HEMETOLOGY METHOD 09/16/2024 11:08 AM EDT [facility] NRBC 1.0(H) <1.0 % LAB HEMETOLOGY METHOD 09/16/2024 11:08 AM EDT [facility] NRBC Absolute 0.02 <0.10 K/mcL LAB HEMETOLOGY METHOD 09/16/2024 11:08 AM EDT [facility] Blood Venous blood specimen / Unknown Venipuncture / Unknown 09/16/2024 6:47 AM EDT 09/16/2024 10:10 AM EDT us Stephanie Celis MD LAB BLOOD ORDERABLES Fin al Result [facility] [address] [place] [address], documented in this encounter Visit Diagnoses Diagnosis Hyperlipidemia, unspecified Unspecified cirrhosis of liver (CMS/HCC V24, CMS/HCC V28) Chronic kidney disease, stage 3 unspecified (CMS/HCC V24, CMS/HCC V28) documented in this encounter Care Teams Cashier General Relationship Specialty Start Date End Date Nina Lindsay NP [address] [place] [phone] PCP - General 10/07/23 documented as of this encounter
--- OUTSIDE RECORDS SUMMARY | 2025-06-15 01:20 | XMS_ITS | Encounter Summary ---
Author Organization [facility] Address [address] [place] [phone] Care Team Providers Care Teleservices Representative Name Role Phone Neftali Nina Marsh NP Primary Care Provider [phone] Encounter Details Date Type Department Care Team (Late st Contact Info) Description 08/25/2024 Lab Requisition [facility] - Main Lab 299 [facility] [address] Stephanie Celis MD [address] [address] Encounter for therapeutic drug level monitoring Social [...] AM EDT Office Visit Orthopedic Surgery - [place] 250 175 [facility] 250 [place] [phone] Ulices Crowell, TRACY 175 [facility] 250 [place] [address] documented as of this encounter Procedures Procedure Name Priority Date/Time Associated Diagnosis Comments VALPROIC ACID LEVEL, TOTAL Routine 08/25/2024 7:32 AM EST Encounter for therapeutic drug level monitoring documented in this encounter Results * Valproic acid level, total (08/25/2024 7:32 AM EST) Valproic Acid, Total 99 50 - 100 mcg/mL LAB CHEMISTRY METHOD 08/25/2024 12:36 PM EST [facility] Blood Venous blood specimen / Unknown Venipuncture / Unknown 08/25/2024 7:32 AM EST 08/25/2024 9:16 AM EST us Stephanie Celis MD LAB BLOOD ORDERABLES Fin al Result [facility] [address] [place] [address], documented in this encounter Visit Diagnoses Diagnosis Encounter for therapeutic drug level monitoring documented in this encounter Care Teams Teleservices Representative Relationship Specialty Start Date End Date Nina Lindsay NP [address] [place] [phone] PCP - General 10/07/23 documented as of this encounter
--- OUTSIDE RECORDS SUMMARY | 2025-06-15 01:20 | XMS_ITS | Encounter Summary ---
Author Organization [facility] Address [address] [place] [address] Care Team Providers Care Purse Framer Name Role Phone LindsayNina Salma NGUYEN Primary Care Provider [phone] Encounter Details Date Type Department Care Team (Late st Contact Info) Description 08/15/[address] [facility] - Main Lab 299 [facility] [place] [address] Stephanie Celis MD [address] [address] Hyperlipidemia, unspecified; Hypothyroidism, unspecified Social History Tobacco [...] AM EDT Office Visit Orthopedic Surgery - [place] [address] [address] Ulices Crowell, DPSwati [address] [address] documented as of this encounter Procedures Procedure Name Priority Date/Time Associated Diagnosis Comments COMPLETE BLOOD COUNT Routine 08/17/2024 5:27 AM EST Hyperlipidemia, unspecified Hypothyroidism, unspecified BASIC METABOLIC PANEL Routine 08/17/2024 5:27 AM EST Hyperlipidemia, unspecified Hypothyroidism, unspecified documented in this encounter Results * (ABNORMAL) Basic metabolic panel (08/17/2024 5:27 AM EST) Sodium 139 133 - 145 mmol/L LAB CHEMISTRY METHOD 08/17/2024 11:[address] [facility] Potassium 3.8 3.5 - 5.5 mmol/L LAB CHEMISTRY METHOD 08/17/2024 11:[address] [facility] Chloride 103 96 - 110 mmol/L LAB CHEMISTRY METHOD 08/17/2024 11:[address] [facility] CO2 30 21 - 32 mmol/L LAB CHEMISTRY METHOD 08/17/2024 11:[address] [facility] Anion Gap 6 3 - 11 LAB CHEMISTRY METHOD 08/17/2024 11:[address] [facility] Glucose 98 70 - 100 mg/dL LAB CHEMISTRY METHOD 08/17/2024 11:[address] [facility] BUN 18 5 - 25 mg/dL LAB CHEMISTRY METHOD 08/17/2024 11:[address] [facility] Creatinine 1.57(H) 0.50 - 1.10 mg/dL LAB CHEMISTRY METHOD 08/17/2024 11:[address] [facility] eGFR 37(L) >=60 mL/min/1. 73m2 LAB CHEMISTRY METHOD 08/17/2024 11:[address] [facility] Comment:Calculation based on the Chronic Kidney Disease Epidemiology Collaboration (CKD-EPI) equation refit without adjustment for race. BUN/Creatinine Ratio 11.5 LAB CHEMISTRY METHOD 08/17/2024 11:[address] [facility] Calcium 8.6 8.5 - 10.5 mg/dL LAB CHEMISTRY METHOD 08/17/2024 11:[address] [facility] Blood Venous blood specimen / Unknown Venipuncture / Unknown 08/17/2024 5:27 AM EST 08/17/2024 10:16 AM EST Stephanie Celis MD LAB BLOOD ORDERABLES Fin al Result [facility] 299 [place] [address], * (ABNORMAL) Complete blood count (08/17/2024 5:27 AM EST) WBC 2.6(L) 4.8 - 10.8 K/mcL LAB HEMETOLOGY METHOD 08/17/2024 10:[address] [facility] RBC 2.70(L) 3.80 - 4.80 M/mcL LAB HEMETOLOGY METHOD 08/17/2024 10:[address] [facility] Hemoglobin 10.1(L) 11.5 - 16.0 g/dL LAB HEMETOLOGY METHOD 08/17/2024 10:[address] [facility] Hematocrit 31.7(L) 35.0 - 47.0 % LAB HEMETOLOGY METHOD 08/17/2024 10:[address] [facility] MCV 118.7(H) 79.0 - 98.0 FL LAB HEMETOLOGY METHOD 08/17/2024 10:[address] [facility] MCH 37.8(H) 27.0 - 32.0 pcg LAB HEMETOLOGY METHOD 08/17/2024 10:[address] [facility] MCHC 31.9(L) 32.0 - 37.0 g/dL LAB HEMETOLOGY METHOD 08/17/2024 10:[address] [facility] RDW 13.2 11.0 - 15.0 % LAB HEMETOLOGY METHOD 08/17/2024 10:[address] [facility] Platelets 50(L) 130 - 400 K/mcL LAB HEMETOLOGY METHOD 08/17/2024 10:[address] [facility] Comment:previously verified by slide MPV 9.6 7.0 - 11.0 FL LAB HEMETOLOGY METHOD 08/17/2024 10:[address] [facility] NRBC 0.0 <1.0 % LAB HEMETOLOGY METHOD 08/17/2024 10:[address] [facility] NRBC Absolute 0.00 <0.10 K/mcL LAB HEMETOLOGY METHOD 08/17/2024 10:[address] [facility] Blood Venous blood specimen / Unknown Venipuncture / Unknown 08/17/2024 5:27 AM EST 08/17/2024 10:16 AM EST us Stephanie Celis MD LAB BLOOD ORDERABLES Fin al Result [facility] 299 [place] [address], documented in this encounter Visit Diagnoses Diagnosis Hyperlipidemia, unspecified Hypothyroidism, unspecified documented in this encounter Care Teams Purse Framer Relationship Specialty Start Date End Date Nina Lindsay NP [address] [place] [phone] PCP - General 10/07/23 documented as of this encounter
--- OUTSIDE RECORDS SUMMARY | 2025-06-15 01:20 | XMS_ITS | Encounter Summary ---
Author Organization [facility] Address [address] [place] [address] Care Team Providers Care Laborer Ammunition Assembly Name Role Phone Neftali Nina Marsh NP Primary Care Provider [phone] Encounter Details Date Type Department Care Team (Late st Contact Info) Description 09/08/2024 Lab Requisition [facility] - Main Lab 299 Count Includes [facility] [place] [address] Stephanie Celis MD [address] [address] Other joint terminal attack controller (current) drug therapy Social History Tobacco Use [...] AM EDT Office Visit Orthopedic Surgery - [place] [address] [phone] Ulices Crowell, DPSwati 175 [facility] 250 [place] [address] documented as of this encounter Procedures Procedure Name Priority Date/Time Associated Diagnosis Comments COMPLETE BLOOD COUNT Routine 09/08/2024 7:20 AM EST Other joint terminal attack controller (current) drug therapy BASIC METABOLIC PANEL Routine 09/08/2024 7:20 AM EST Other joint terminal attack controller (current) drug therapy documented in this encounter Results * (ABNORMAL) Basic metabolic panel (09/08/2024 7:20 AM EST) Sodium 140 133 - 145 mmol/L LAB CHEMISTRY METHOD 09/08/2024 10:01 AM [facility] Potassium 4.2 3.5 - 5.5 mmol/L LAB CHEMISTRY METHOD 09/08/2024 10:01 AM [facility] Chloride 103 96 - 110 mmol/L LAB CHEMISTRY METHOD 09/08/2024 10:01 AM [facility] CO2 26 21 - 32 mmol/L LAB CHEMISTRY METHOD 09/08/2024 10:01 AM [facility] Anion Gap 11 3 - 11 LAB CHEMISTRY METHOD 09/08/2024 10:01 AM [facility] Glucose 109(H) 70 - 100 mg/dL LAB CHEMISTRY METHOD 09/08/2024 10:01 AM [facility] BUN 9 5 - 25 mg/dL LAB CHEMISTRY METHOD 09/08/2024 10:01 AM [facility] Creatinine 1.08 0.50 - 1.10 mg/dL LAB CHEMISTRY METHOD 09/08/2024 10:01 AM [facility] eGFR 58(L) >=60 mL/min/1. 73m2 LAB CHEMISTRY METHOD 09/08/2024 10:01 AM [facility] Comment:Calculation based on the Chronic Kidney Disease Epidemiology Collaboration (CKD-EPI) equation refit without adjustment for race. BUN/Creatinine Ratio 8.3 LAB CHEMISTRY METHOD 09/08/2024 10:01 AM [facility] Calcium 8.6 8.5 - 10.5 mg/dL LAB CHEMISTRY METHOD 09/08/2024 10:01 AM [facility] Blood Venous blood specimen / Unknown Venipuncture / Unknown 09/08/2024 7:20 AM EST 09/08/2024 9:03 AM EST Stephanie Celis MD LAB BLOOD ORDERABLES Fin al Result [facility] [address] [place] [address], * (ABNORMAL) Complete blood count (09/08/2024 7:20 AM EST) WBC 2.1(L) 4.8 - 10.8 K/mcL LAB HEMETOLOGY METHOD 09/08/2024 10:40 AM [facility] RBC 2.80(L) 3.80 - 4.80 M/mcL LAB HEMETOLOGY METHOD 09/08/2024 10:40 AM [facility] Hemoglobin 10.6(L) 11.5 - 16.0 g/dL LAB HEMETOLOGY METHOD 09/08/2024 10:40 AM [facility] Hematocrit 31.8(L) 35.0 - 47.0 % LAB HEMETOLOGY METHOD 09/08/2024 10:40 AM [facility] MCV 113.2(H) 79.0 - 98.0 FL LAB HEMETOLOGY METHOD 09/08/2024 10:40 AM [facility] MCH 37.7(H) 27.0 - 32.0 pcg LAB HEMETOLOGY METHOD 09/08/2024 10:40 AM [facility] MCHC 33.3 32.0 - 37.0 g/dL LAB HEMETOLOGY METHOD 09/08/2024 10:40 AM [facility] RDW 13.2 11.0 - 15.0 % LAB HEMETOLOGY METHOD 09/08/2024 10:40 AM [facility] Platelets 34(L) 130 - 400 K/mcL LAB HEMETOLOGY METHOD 09/08/2024 10:40 AM [facility] Comment:previously verified by slide MPV 9.7 7.0 - 11.0 FL LAB HEMETOLOGY METHOD 09/08/2024 10:40 AM EST [facility] NRBC 0.0 <1.0 % LAB HEMETOLOGY METHOD 09/08/2024 10:40 AM EST [facility] NRBC Absolute 0.00 <0.10 K/mcL LAB HEMETOLOGY METHOD 09/08/2024 10:40 AM EST [facility] Blood Venous blood specimen / Unknown Venipuncture / Unknown 09/08/2024 7:20 AM EST 09/08/2024 9:03 AM EST us Stephanie Celis MD LAB BLOOD ORDERABLES Fin al Result [facility] 299 [place] [address], documented in this encounter Visit Diagnoses Diagnosis Other joint terminal attack controller (current) drug therapy documented in this encounter Care Teams Laborer Ammunition Assembly Relationship Specialty Start Date End Date Nina Lindsay NP [address] [phone] PCP - General 10/07/23 documented as of this encounter
--- OUTSIDE RECORDS SUMMARY | 2025-06-15 01:20 | XMS_ITS | Encounter Summary ---
Author Organization [facility] Address [address] [place] [address] Care Team Providers Care Skein Dyer Name Role Phone Neftali Nina Marsh NP Primary Care Provider [phone] Encounter Details Date Type Department Care Team (Late Contact Info) Description 08/13/2024 Lab Requisition [facility] 299 [facility] [place] [address] Stephanie Celis MD [address] [address] Human immunodeficiency virus (HIV) disease (CMS/HCC V24, [...] AM EDT Office Visit Orthopedic Surgery - [place] [address] [phone] Ulices Crowell, TRACY [address] [address] documented as of this encounter Procedures Procedure Name Priority Date/Time Associated Diagnosis Comments COMPLETE BLOOD COUNT Routine 08/13/2024 7:22 AM EST Human immunodeficiency virus (HIV) disease (CMS/[facility]) Noninfective gastroenteritis and colitis, unspecified [...] LAB HEMETOLOGY METHOD 08/13/2024 10:51 AM EST [facility] NRBC Absolute 0.00 <0.10 K/mcL LAB HEMETOLOGY METHOD 08/13/2024 10:51 AM EST [facility] Blood Venous blood specimen / Unknown Venipuncture / Unknown 08/13/2024 7:22 AM EST 08/13/2024 9:57 AM EST us Stephanie Celis MD LAB BLOOD ORDERABLES Fin al Result [facility] [address] [place] [address], documented in this encounter Visit Diagnoses Diagnosis Human immunodeficiency virus (HIV) disease (CMS/HCC V24, CMS/[facility] V28) Human immunodeficiency virus [HIV] disease Noninfective gastroenteritis and colitis, unspecified Altered mental status, unspecified Vitamin D deficiency, unspecified documented in this encounter Care Teams Skein Dyer Relationship Specialty Start Date End Date Nina Lindsay NP [address] [place] [phone] PCP - General 10/07/23 documented as of this encounter
--- OUTSIDE RECORDS SUMMARY | 2025-06-15 01:20 | XMS_ITS | Encounter Summary ---
Author Organization [facility] Address [address] [place] [address] Care Team Providers Care Digital X Ray Service Engineer Name Role Phone LindsayNina Salma NGUYEN Primary Care Provider [phone] Encounter Details Date Type Department Care Team (Late st Contact Info) Description 09/22/2024 Lab Requisition [facility] - Main Lab 299 [facility] [place] [address] Stephanie Celis MD [address] [address] Other drug-induced pancytopenia (CMS/HCC V24); Chronic kidney [...] AM EDT Office Visit Orthopedic Surgery - [place] 250 175 [facility] 250 [place] [phone] Ulices Crowell, DPSwati [address] [address] documented as of this encounter Procedures Procedure [...] mmol/L LAB CHEMISTRY METHOD 09/22/2024 10:05 AM [facility] Potassium 4.0 3.5 - 5.5 mmol/L LAB CHEMISTRY METHOD 09/22/2024 10:05 AM [facility] Chloride 103 96 - 110 mmol/L LAB CHEMISTRY METHOD 09/22/2024 10:05 AM [facility] CO2 27 21 - 32 mmol/L LAB CHEMISTRY METHOD 09/22/2024 10:05 AM [facility] Anion Gap 8 3 - 11 LAB CHEMISTRY METHOD 09/22/2024 10:05 AM [facility] Glucose 105(H) 70 - 100 mg/dL LAB CHEMISTRY METHOD 09/22/2024 10:05 AM [facility] BUN 15 5 - 25 mg/dL LAB CHEMISTRY METHOD 09/22/2024 10:05 AM [facility] Creatinine 1.15(H) 0.50 - 1.10 mg/dL LAB CHEMISTRY METHOD 09/22/2024 10:05 AM [facility] eGFR 54(L) >=60 mL/min/1. 73m2 LAB CHEMISTRY METHOD 09/22/2024 10:05 AM [facility] Comment:Calculation based on the Chronic Kidney Disease Epidemiology Collaboration (CKD-EPI) equation refit without adjustment for race. BUN/Creatinine Ratio 13.0 LAB CHEMISTRY METHOD 09/22/2024 10:05 AM [facility] Calcium 8.9 8.5 - 10.5 mg/dL LAB CHEMISTRY METHOD 09/22/2024 10:05 AM EDT [facility] Blood Venous blood specimen / Unknown Venipuncture / Unknown 09/22/2024 7:02 AM EDT 09/22/2024 8:33 AM EDT us Stephanie Celis MD LAB BLOOD ORDERABLES Fin al Result [facility] [address] [place] [address], * (ABNORMAL) Complete blood count (09/22/2024 7:02 AM EDT) WBC 2.2(L) 4.8 - 10.8 K/mcL LAB [facility] RBC 2.80(L) 3.80 - 4.80 M/mcL LAB HEMETOLOGY METHOD 09/22/2024 10:32 AM EDT [facility] Hemoglobin 10.5(L) 11.5 - 16.0 g/dL LAB HEMETOLOGY METHOD 09/22/2024 10:32 AM [facility] Hematocrit 30.9(L) 35.0 - 47.0 % LAB HEMETOLOGY METHOD 09/22/2024 10:32 AM [facility] MCV 110.4(H) 79.0 - 98.0 FL LAB HEMETOLOGY METHOD 09/22/2024 10:32 AM EDT [facility] MCH 37.5(H) 27.0 - 32.0 pcg LAB HEMETOLOGY METHOD 09/22/2024 10:32 AM EDT [facility] MCHC 34.0 32.0 - 37.0 g/dL LAB HEMETOLOGY METHOD 09/22/2024 10[facility] RDW 13.2 11.0 - 15.0 % LAB HEMETOLOGY METHOD 09/22/2024 10:32 AM EDT [facility] Platelets 66(L) 130 - 400 K/mcL LAB HEMETOLOGY METHOD 09/22/2024 10:32 AM EDT [facility] Comment:previously verified by slide MPV 9.2 7.0 - 11.0 FL LAB HEMETOLOGY METHOD 09/22/2024 10:32 AM EDT [facility] NRBC 0.0 <1.0 % [facility] 09/22/2024 10:32 AM EDT [facility] NRBC Absolute 0.00 <0.10 K/mcL LAB [facility] 09/22/2024 10:32 AM EDT [facility] Blood Venous blood specimen / Unknown Venipuncture / Unknown 09/22/2024 7:02 AM EDT 09/22/2024 8:33 AM EDT us Stephanie Celis MD LAB BLOOD ORDERABLES Fin al Result [facility] 299 [place] [address], documented in this encounter Visit Diagnoses Diagnosis Other drug-induced pancytopenia (CMS/HCC V24) Other drug-induced pancytopenia Chronic kidney disease, stage 3 unspecified (CMS/HCC V24, CMS/HCC V28) documented in this encounter Care Teams Digital X Ray Service Engineer Relationship Specialty Start Date End Date Nina Lindsay NP [address] [place] [phone] PCP - General 10/07/23 documented as of this encounter
--- OUTSIDE RECORDS SUMMARY | 2025-06-15 01:20 | XMS_ITS | Encounter Summary ---
Author Organization [facility] Address [address] [place] [address] Care Team Providers Care Fire Management Officer Name Role Phone LindsayNina Salma NGUYEN Primary Care Provider [phone] Encounter Details Date Type Department Care Team (Late st Contact Info) Description 08/11/2024 Lab Requisition [facility] - Main Lab 299 [facility] [address] Stephanie Celis MD [address] [address] Altered mental status, unspecified Social History Tobacco [...] AM EDT Office Visit Orthopedic Surgery - [place] 250 175 [facility] 250 [place] [address] Ulices Crowell DPM [address] [address] documented as of this encounter Procedures Procedure [...] reflex microscopic (08/10/2024 2:00 PM EST) Specific [place] Urine 1.019 1.003 - 1.030 LAB URINALYSIS [...] - AUTOMATED METHOD 08/11/2024 11:48 AM EST [facility] Squamous Epithelial, Urine [...] Result [facility] 299 [place] [address], * (ABNORMAL) Culture urine (08/10/2024 2:00 PM [...] us Stephanie Celis MD LAB MICROBIOLOGY - [facility] AL ORDERABLES Final Result [facility] 299 [place] [address], documented in this encounter Visit Diagnoses Diagnosis Altered mental status, unspecified documented in this encounter Care Teams Fire Management Officer Relationship Specialty Start Date End Date Nina Lindsay NP [address] [place] [phone] PCP - General 10/07/23 documented as of this encounter
== END 2025-06-14 16:22 | disposition home or self-care (01) ==
LOC: HO.HSM 15:45
PROVIDERS: PCP Nurse Practitioner Primary Care; Visit Provider Psychiatry & Neurology Neurology
DX: G31.9 Degenerative disease of nervous system, unspecified (principal); G93.49 Other encephalopathy; G43.109 Migraine with aura, not intractable, without status migrainosus; R41.89 Other symptoms and signs involving cognitive functions and awareness
CPT/HCPCS: 99204

== ENCOUNTER → 2025-06-14 15:44 | Outpatient (BNVA) | payer MEDICARE, MEDICAID, SELFPAY | PROVIDERS: PCP Nurse Practitioner Primary Care; Visit Provider Psychiatry & Neurology Neurology | DX: G43.109 Migraine with aura, not intractable, without status migrainosus (principal); R41.89 Other symptoms and signs involving cognitive functions and awareness | CPT/HCPCS: 99202 ==

== ENCOUNTER 2025-06-17 10:39 | Outpatient (AMB) | payer MEDICARE, MEDICAID, SELFPAY ==
--- NOTE | 2025-06-17 10:48 | MHC.OFFVIS ---
Vital Signs 06/17/25 10:49 Height 5 ft 6 in Weight 189 lb 9.561 oz BMI 30.6 BP 104/66 Blood Pressure Location Lt brachial Position Sitting Pulse 86 Intake Visit Reasons: 4mo us order/pre Colonoscopy Intake Note: Patient follow up for Chronic constipation and pre Colonoscopy Patient cc: constipation on and off, denies any other GI issues Information Resource Consultant Required: No Accompanied by: Family/Other Allergies abacavir (ABACAVIR) Allergy (Severe, Verified 06/17/25 10:47) HIVES hydrochlorothiazide (HYDROCHLOROTHIAZIDE) Allergy (Severe, Verified 06/17/25 10:47) HIVES ibuprofen (From MOTRIN) Allergy (Severe, Verified 06/17/25 10:47) HIVES Penicillins (PENICILLINS) Allergy (Severe, Verified 06/17/25 10:47) HIVES tenofovir (From VIREAD) Allergy (Severe, Verified 06/17/25 10:47) HIVES tomato (TOMATO) Allergy (Severe, Verified 06/17/25 10:47) HIVES zidovudine (From RETROVIR) Allergy (Severe, Verified 06/17/25 10:47) HIVES lactose (Lactose) Adverse Reaction (Mild, Verified 06/17/25 10:47) DIARRHEA disoproxail Allergy (Mild, Uncoded 05/26/25 11:49) Unknown fumarate Allergy (Uncoded 05/26/25 11:49) Unknown hydrovenzthiazide Allergy (Uncoded 05/26/25 11:49) Unknown Medication List - Last Reconciled 06/17/25 by Helena Coon MD acetaminophen 500 mg PO Q6H PRN albuterol sulfate 90 mcg/actuation 2 puffs inhalation Q4H PRN atorvastatin (Lipitor) 20 mg PO DAILY oqxzwfzmj-tjdfylhy-leuoswa ala 50-200-25 mg (Biktarvy) 1 tab PO DAILY calcium carbonate-vitamin D3 600 mg-10 mcg (400 unit) (Calcium 600 + D(3)) 1 tab PO BID cyanocobalamin (vitamin B-12) (Vitamin B-12) 50 mcg PO DAILY divalproex ER 750 mg PO BEDTIME divalproex ER 750 mg PO ONCE estradiol 0.01%(0.1mg/gram) Apply pea-sized amount to urethra daily x1 month and then 3 times a week thereafter 90 days folic acid 1 mg PO DAILY levothyroxine 75 mcg PO DAILY@0600 loperamide 4 mg PO Q6H PRN midodrine 5 mg PO TID omeprazole 20 mg PO QAM 90 days quetiapine 200 mg PO TID 30 days sennosides-docusate sodium 8.6-50 mg (Stimulant Laxative Plus) 1 tab PO BID 90 days sertraline 100 mg PO DAILY simethicone 80 mg PO TID sodium chloride 0.65% (Saline Nasal) 1 spray intranasal BID trazodone 100 mg PO BEDTIME valacyclovir (Valtrex) 500 mg PO BID wheat dextrin (Benefiber Sugar Free (dextrin)) 1 packet PO BID HPI HPI 4mo us order/pre Colonoscopy: Details: GI CLINIC VISIT FOR THIS 64-YEAR-OLD FEMALE FOR FOLLOW-UP OF LIVER CIRRHOSIS WITH ELEVATED LFTS AND CHRONIC CONSTIPATION. TODAY'S VISIT Pt is accompanied by a staff member of [facility] Assisted Patient reports intermittent constipation. Has a BM daily - intermittent straining Patient follow up for Chronic Constipation and US results. Abdomem/pelvis CT scan was done 07/2024. PAST VISIT: Complains of a sore back due to bed being too hard I am fine - tired all the time Not constipated - has a BM daily Complains of a sore back. Pt complains of intermittent constipation (Assisted staff reports she is not constipated) Noted periumblical pain yesterday and radiating around to the back Pain comes and goes and notes increased pain when having a BM and resolves after she has a BM. Has to drink a lot of water. Had diarrhea for 1 day last week Has a BM every other day with hard stool associated with straining Abd US results were reviewed Intermittent constipation. Notes intermittent RLQ pain which resolves after she has a BM. Having a BM daily with straining and hard stools Also has gas. Taking Senna 3 times a week and advised to take it every day. Notes some urinary burning with micturation. Has a BM in the morning or afternoon every other day Had COVID in June Loosing and gaining weight. Has loose stools 2-3 times a day without blood or mucous. Notes diarrhea with cheese and milk products and takes Lactaid milk. Feels tired and notes nausea. Complains of pain in the botton of her foot. Intermittent abdominal pain. Had a BM twice this week. Has a BM after she eats ice cream or takes a Latte ? Doing about the same. Denies recurrent rectal bleeding Complains of heartburn once in a while. Occasional loose stools and takes loperamide prn. ? Has GERD and notes dysphagia if she drinks water too fast. Lives in a Residential Home setting in her own apartment in [place]. ? Has had care at [facility] and [facility] in the past. ? 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 ? Also heavy ETOH use from age 18/18 till age 39 yrs - clean and sober since then. ? Renal Failure and pancreatitis in 2008. ? Had vomiting and Jaundice in 2009 - diagnosed with Hep C and ?was treated. ? Constantly tired and fatigued. ? 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 ? CHRONIC ILLNESSES:?seasonal allergies, hepatitis C - treated, human immunodeficiency virus (HIV), positive, GERD, lactose intolerance, depression, insomnia, PTSD, herpes, prediabetic, hyperlipidemia ?PAST LABS IN [employer]:?02/16/20 REVIEWED. WBC 4.4, HEMATOCRIT 43.1 PLATELET 85, INR 1.0 ? CR 1.25, TB 0.9 nA 144, total bilirubin 0.6 WITH NORMAL LFTS ? Iron studies showed iron 73, TIBC 354, % saturation 21, ferritin 344 ? Celiac serologies were negative, IgA was 131 ? Liver fibrosis score 0.63, liver fibrosis stage F3, necroinflammatory score 0.46 ?IMAGING STUDIES: 06/28/21 abd us showed: Slightly echogenic liver. No focal liver lesion is seen. Enlarged spleen. No ascites. Normal liver Doppler exam. 08/2020Question mild cirrhotic changes of the liver. No focal liver lesion seen. Splenomegaly. ?ENDOSCOPIC STUDIES:?02/07/21 COLONOSCOPY SHOWED: One medium sized polyp removed. Random biopsies were obtained from right and left colon to check for microscopic colitis Moderate diverticulosis seen in the left colon Plan:? Patient has an appointment on 02/23/21 in the GI Clinic with? Rubeela Shaggy, M.D. Repeat Colonoscopy interval based on path results - in 3 years if polyp is adenomatous and 10 years if polyp is hyperplastic. BIOPSIES SHOWED: A.? Colon, random right, biopsy:? Colonic mucosa within normal limits; negative for active, chronic or microscopic colitis. B.? Colon, random left, biopsy:? Colonic mucosa within normal limits; negative for active, chronic or microscopic colitis. C.? Rectum, polypectomy:? Clinically polypoid colonic mucosa noted; negative for a hyperplastic or neoplastic process. 09/08/19 EGD WAS NORMAL, NO VARICES WERE SEEN.? SAME-DAY COLONOSCOPY REVEALED MODERATE DIVERTICULOSIS AND NO POLYPS WERE DETECTED.? REPEAT COLONOSCOPY IS ADVISED IN 5 YEARS DUE TO FAIR PREP AND POSITIVE FH OF COLON POLYPS (DAD). ?PAST VISIT: US results reviewed with the patient Bleeding stopped - notes only once in a while. Notes a sharp pain in her abdomen when she pushes during a BM. Notes hard stools. ?Intentional wt loss of 35 lbs - has been eating healthy - from 210 to 181 lbs. ? I am always constipated. ? Intermittent diarrhea - takes medications when she has diarrhea. ? Denies abdominal pain. ? Continues to have intermittent bleeding _ ? vaginal versus rectal ? Intermittent vaginal bleeding - 2-3 times this week. scheduled for pelvic US on 12/22/20 ? every time she wipes she notices some blood - unsure if she is bleeding from the vagina. ? ? ? Periods stopped when she was 39 yrs ? ? ? Denies having a recent Pelvic examination. ? ? ? Notices lower abdominal cramps - like menstrual cramps. ? ? ? Exercising daily (does Kavin) and weighs 183 lbs (decreased from 210 lbs). ? ? ? Eating a healthy diet. ? I am doing fine and walk around ? I am always tired ? Lost weight from > 200 to 194 ? Has been doing well and denies stomach issues at this time. ? Patient denies change in bowel habits, black stools or rectal bleeding ? Denies dysphagia, heartburn, nausea or vomiting, change in appetite?or weight [facility] History Tremor of both hands Positive serological reaction for syphilis Hypothyroidism Hx of acute pancreatitis Hx of acute renal failure History of ETOH abuse Hx of herpes genitalis History of diverticulosis Constipation History of intravenous drug abuse Developmental delay, mild COVID-19 vaccine series completed Depression PTSD (post-traumatic stress disorder) Hyperlipidemia Seasonal allergies Hx of hepatitis C HIV (human immunodeficiency virus infection) Nocturia Frequency of micturition Surgical History History of colonoscopy Family History Mother Alzheimer disease Breast cancer HTN (hypertension) Paternal Aunt Breast cancer Social History Household Members: None Household Members Other:: [employer] Housing: Apartment Housing Other:: Assisted Are you a primary healthcare account manager to a significant other at home: No Do you presently have visiting nurse or other home services: Yes Unable to assess alcohol history related to: Unknown Alcohol intake: never Patient Tobacco Use Status: Never used Tobacco e-Cigarette/Vaping Use: Never Used Second Hand Smoke Exposure: No service: No Sexual orientation: Decline to Answer Female Reproductive History Menstrual Age of Menarche: 11 Review of Systems Const All systems reviewed & are unremarkable except as noted in HPI and below Physical Exam Vital Signs: Last Vital Signs Pulse 86 06/17/25 10:49 BP 104/66 06/17/25 10:49 BMI result Body Mass Index 30.6 Const General: healthy appearing and no acute distress Nutritional Appearance: obese Orientation/consciousness: patient oriented x3 Limitations: ambulation with walker and other limitations (Developmental delay) HEENT Head: Yes normal to inspection Ears: hearing grossly normal bilaterally Eyes Sclerae: sclerae normal Pupils: Equal, round and reactive pupils present Neck Neck: Yes normal visual inspection Chest Chest palpation & inspection: normal inspection of the chest Resp Effort & Inspection: normal respiratory effort Auscultation: clear to auscultation bilaterally Cardio Palpation: normal PMI Rate: regular rate Rhythm: regular rhythm Heart sounds: S1 normal heart sound present, S2 normal heart sound present and no murmurs GI Palpation (GI): Soft to palpation, nontender and No hepatosplenomegaly present Auscultation: normal bowel sounds Rectal Exam - Female: deferred Skin General skin exam: no rashes or lesions noted Neuro General: patient oriented x3, gait normal and moves all extremities Cranial nerves: Yes Equal, round and reactive pupils present Psych Appearance: grossly normal Mental Status: mental status grossly normal Assessment & Plan Assessment & Plan (1) GERD (gastroesophageal reflux disease): Code(s): K21.9 - Gastro-esophageal reflux disease without esophagitis Category: Medical (2) Cirrhosis of liver without ascites: Code(s): K74.60 - Unspecified cirrhosis of liver Category: Medical (3) Colon cancer screening: Comment: 09/24 COLONOSCOPY REVEALED MODERATE DIVERTICULOSIS AND NO POLYPS WERE DETECTED. 02/2021 A hyperplastic polyp was removed. Random biopsies were obtained from right and left colon to check for microscopic colitis REPEAT COLONOSCOPY IS ADVISED IN 5 YEARS DUE TO POSITIVE FH OF COLON POLYPS (DAD) - due 02/2026 Code(s): Z12.11 - Encounter for screening for malignant neoplasm of colon Category: Medical (4) Chronic constipation: Code(s): K59.09 - Other constipation Category: Medical (5) Abdominal pain: Code(s): R10.9 - Unspecified abdominal pain Category: Medical Plan 64 YF with cognitive developmental delay, seasonal allergies, hepatitis C - treated, human immunodeficiency virus (HIV), positive, GERD, lactose intolerance, depression, insomnia, PTSD, herpes, pre-diabetic, hyper-lipidemia seen for elevated LFTs with cirrhosis. Patient is on treatment for HIV. She has a history of past hepatitis C which has been treated (records pertaining to treatment are not available) since recent hepatitis C viral load has been negative. Past lab evaluation with [facility] was negative 2017. Likely cause of elevated LFT is steato-hepatitis related to obesity - LFT are normal since she lost 27 lbs. Iron studies were not suggestive of hemochromatosis and celiac serologies were normal. Liver fibrosis score was 0.63 and liver fibrosis stage was F3 and necroinflammatory score was 0.46 indicating that she may have compensated cirrhosis. Cirrhosis is likely multifactorial - steatohepatitis, past EtOH use and hepatitis C infection. MELD score is 8. Abdominal ultrasound showed mild splenomegaly without hepatic mass and no ascites. Patient admits to intentional weight loss with the normalization of LFTs indicating elevated LFTs were likely due to steatohepatitis. 05/09/23 Pt complains of worsening constipation. She was advised to increase Senna plus to 2 capsules at bedtime for constipation Schedule an [facility] US for HCC surveillance. 11/14/23 Having a BM daily with straining and hard stools Taking Senna 3 times a week and advised to take it every day. 03/26/24 Noted garfield-umblical pain yesterday and radiating around to the back Pain comes and goes and notes increased pain when having a BM and resolves after she has a BM. Has to drink a lot of water. Had diarrhea for 1 day last week Has a BM every other day with hard stool associated with straining Advised to increase senna to twice a day for constipation 05/14/24 Pt complains of intermittent constipation (Assisted staff reports she is not constipated) 04/06/25 ABDOMINAL ULTRASOUND WITH ELASTOGRAPHY SHOWED: Hepatomegaly and hepatic steatosis. Nodular liver contour, suggestive of cirrhosis. The median shear wave velocity in the liver is 1.91 m/s, corresponding to a median liver stiffness of 11.10 kPa. The IQR/median value is 0.07. This is indicative of a quality data set. Findings are indicative of a high elastography value suggestive of compensated advanced chronic liver disease. 06/17/25 advised to start Linzess 145 mcg daily for constipation FU in 6 to 8 weeks Medications: New linaclotide (Linzess) 145 mcg PO QAM 30 caps 3RF 30 days K59.09 - Other constipation Coding Level of Care Code Est Pt Level 4 (63209) Diagnoses GERD (gastroesophageal reflux disease) K21.9 Cirrhosis of liver without ascites K74.60 Colon cancer screening Z12.11 Chronic constipation K59.09 Abdominal pain R10.9
[2025-06-17 10:49] VITALS: BP 104/66; PULSE 86; BMI 30.6
== END 2025-06-17 11:20 | disposition home or self-care (01) ==
LOC: HO.HGI 10:39
PROVIDERS: PCP Nurse Practitioner Primary Care; Visit Provider Internal Medicine Gastroenterology
DX: Z01.818 Encounter for other preprocedural examination (principal); Z12.11 Encounter for screening for malignant neoplasm of colon; Z86.0102 Personal history of hyperplastic colon polyps; K21.9 Gastro-esophageal reflux disease without esophagitis; K74.60 Unspecified cirrhosis of liver; K59.09 Other constipation; R10.9 Unspecified abdominal pain
CPT/HCPCS: 99214

== ENCOUNTER → 2025-06-17 10:39 | Outpatient (BNVA) | payer MEDICARE, MEDICAID, SELFPAY | PROVIDERS: PCP Nurse Practitioner Primary Care; Visit Provider Internal Medicine Gastroenterology | DX: Z01.818 Encounter for other preprocedural examination (principal); K21.9 Gastro-esophageal reflux disease without esophagitis; K74.60 Unspecified cirrhosis of liver; K59.09 Other constipation; R10.9 Unspecified abdominal pain | CPT/HCPCS: 99212 ==

== ENCOUNTER 2025-06-23 12:28 | Outpatient (REF) | payer MEDICARE, MEDICAID, SELFPAY ==
--- NOTE | ~2025-06-23 | MM_ITS ---
EXAMINATION: MM SCREENING DIGITAL BREAST TOMOSYNTHESIS, BILATERAL CLINICAL INFORMATION: Screening. Asymptomatic. COMPARISON: Mammography: Comparison is made with available priors TECHNIQUE: Digital breast mammography with tomosynthesis is performed in both the craniocaudal and mediolateral oblique views along with computer-aided detection (CAD). FINDINGS: There are scattered areas of fibroglandular density. There are no significant masses, abnormal calcifications, or other abnormalities. MM/MM tomosynthesis screening BI IMPRESSION: No mammographic evidence of malignancy. ASSESSMENT: BI-RADS Category 1: Negative RECOMMENDATION: Routine annual mammography screening. 1 year F/U This examination should not preclude the clinical evaluation of a suspicious palpable abnormality. This patient's information was entered into a reminder system with a target due date for their next mammogram. Electronically signed by: Manjula Rae DO 06/23/2025 02:18 PM [facility]
--- OUTSIDE RECORDS SUMMARY | 2025-06-23 16:22 | XMS_ITS | Encounter Summary ---
Author Organization [facility] Address [address] [place] [address] Care Team Providers Care Recruitment Assistant Name Role Phone Neftali Nina Marsh NP Primary Care Provider Encounter Details Date Type Department Care Team (Late st Contact Info) Description 09/29/2024 Lab Requisition [facility] 299 [facility] [place] [address] Stephanie Celis MD [address] [address] Hyperlipidemia, unspecified; Unspecified cirrhosis of liver (CMS/HCC [...] AM EDT Office Visit Orthopedic Surgery - [place] [address] [phone] Ulices Crowell, TRACY [address] [address] documented as of this encounter Procedures Procedure Name Priority Date/Time Associated Diagnosis Comments COMPLETE BLOOD COUNT Routine 09/29/2024 8:28 AM EDT Hyperlipidemia, unspecified Unspecified cirrhosis of liver (CMS/HCC) Chronic kidney disease, stage 3 unspecified (CMS/HCC) documented in this encounter Results * (ABNORMAL) Complete blood count (09/29/2024 8:28 AM EDT) [facility] Signature WBC 4.0(L) 4.8 - 10.8 K/mcL LAB HEMETOLOGY METHOD 09/29/2024 10:51 AM [facility] RBC 3.50(L) 3.80 - 4.80 M/mcL LAB HEMETOLOGY METHOD 09/29/2024 10:51 AM EDT [facility] Hemoglobin 12.9 11.5 - [...] LAB HEMETOLOGY METHOD 09/29/2024 10:51 AM EDT [facility] NRBC Absolute 0.00 <0.10 K/mcL LAB HEMETOLOGY METHOD 09/29/2024 10:51 AM EDT [facility] Blood Venous blood specimen / Unknown Venipuncture / Unknown 09/29/2024 8:28 AM EDT 09/29/2024 10:07 AM EDT us Stephanie Celis MD LAB BLOOD ORDERABLES Fin al Result [facility] [address] [place] [address], documented in this encounter Visit Diagnoses Diagnosis Hyperlipidemia, unspecified Unspecified cirrhosis of liver (CMS/HCC V24, CMS/HCC V28) Chronic kidney disease, stage 3 unspecified (CMS/HCC V24, CMS/HCC V28) documented in this encounter Care Teams Recruitment Assistant Relationship Specialty Start Date End Date Nina Lindsay NP [address] [place] [phone] PCP - General 10/07/23 documented as of this encounter
--- OUTSIDE RECORDS SUMMARY | 2025-06-23 16:22 | XMS_ITS | Encounter Summary ---
Author Organization [facility] Address [address] [place] [address] Care Team Providers Care Engineering Group Manager Name Role Phone Neftali Nina Marsh NP Primary Care Provider [phone] Encounter Details Date Type Department Care Team (Late st Contact Info) Description 09/16/2024 Lab Requisition [facility] Lab 299 [facility] [place] [address] Stephanie Celis MD [address] [address] Hyperlipidemia, unspecified; Unspecified cirrhosis of liver (CMS/HCC [...] AM EDT Office Visit Orthopedic Surgery - [place] [address] [phone] Ulices Crowell, TRACY [address] [address] documented as of this encounter Procedures Procedure [...] LAB CHEMISTRY METHOD 09/16/2024 11:36 AM T [facility] Blood Venous blood specimen / Unknown Venipuncture / Unknown 09/16/2024 6:47 AM EDT 09/16/2024 10:10 AM EDT us Stephanie Celis MD LAB BLOOD ORDERABLES Fin al Result [facility] LAB [address] [place] [address], [place] [phone] * (ABNORMAL) Complete blood count (09/16/2024 6:47 [...] LAB HEMETOLOGY METHOD 09/16/2024 11:08 AM EDT [facility] LAB Platelets 68(L) 130 - 400 K/mcL LAB HEMETOLOGY METHOD 09/16/2024 11:08 AM EDT [facility] LAB Comment:previously verified by slide MPV 9.1 7.0 - 11.0 FL LAB HEMETOLOGY METHOD 09/16/2024 11:08 AM EDT [facility] LAB NRBC 1.0(H) <1.0 % LAB HEMETOLOGY METHOD 09/16/2024 11:08 AM EDT [facility] LAB NRBC Absolute 0.02 <0.10 K/mcL LAB HEMETOLOGY METHOD 09/16/2024 11:08 AM EDT [facility] Blood Venous blood specimen / Unknown Venipuncture / Unknown 09/16/2024 6:47 AM EDT 09/16/2024 10:10 AM EDT us Stephanie Celis MD LAB BLOOD ORDERABLES Fin al Result [facility] [address] [place] [address], documented in this encounter Visit Diagnoses Diagnosis Hyperlipidemia, unspecified Unspecified cirrhosis of liver (CMS/HCC V24, CMS/HCC V28) Chronic kidney disease, stage 3 unspecified (CMS/HCC V24, CMS/HCC V28) documented in this encounter Care Teams Engineering Group Manager Relationship Specialty Start Date End Date Nina Lindsay NP [address] [place] [phone] PCP - General 10/07/23 documented as of this encounter
--- OUTSIDE RECORDS SUMMARY | 2025-06-23 16:22 | XMS_ITS | Encounter Summary ---
Author Organization [facility] Address [address] [place] [address] Care Team Providers Care Heel Seat Flap Stapler Name Role Phone LindsayNina Salma NGUYEN Primary Care Provider [phone] Encounter Details Date Type Department Care Team (Late st Contact Info) Description 08/23/2024 Lab Requisition [facility] - Main Lab 299 [facility] [place] [address] Stephanie Celis MD [address] [address] Hypothyroidism, unspecified; Hyperlipidemia, unspecified Social History Tobacco [...] AM EDT Office Visit Orthopedic Surgery - [place] [address] [address] Ulices Crowell, DPSwati [address] [address] documented as of this encounter Procedures Procedure [...] Result [facility] [address] [place] [address], * (ABNORMAL) Complete blood count (08/24/2024 6:57 [...] LAB HEMETOLOGY METHOD 08/24/2024 10:58 AM EST [facility] LAB NRBC 0.0 <1.0 % LAB HEMETOLOGY METHOD 08/24/2024 10:58 AM EST [facility] LAB NRBC Absolute 0.00 <0.10 K/mcL LAB HEMETOLOGY METHOD 08/24/2024 10:58 AM EST [facility] Blood Venous blood specimen / Unknown Venipuncture / Unknown 08/24/2024 6:57 AM EST 08/24/2024 10:21 AM EST us Stephanie Celis MD LAB BLOOD ORDERABLES Fin al Result [facility] 299 [place] [address], documented in this encounter Visit Diagnoses Diagnosis Hypothyroidism, unspecified Hyperlipidemia, unspecified documented in this encounter Care Teams Heel Seat Flap Stapler Relationship Specialty Start Date End Date Nina Lindsay NP [address] [place] [phone] PCP - General 10/07/23 documented as of this encounter
--- OUTSIDE RECORDS SUMMARY | 2025-06-23 16:22 | XMS_ITS | Encounter Summary ---
Author Organization [facility] Address [address] [place] [address] Care Team Providers Care Dish Cloth Inspector Name Role Phone Neftali Nina Marsh NP Primary Care Provider [phone] Encounter Details Date Type Department Care Team (Late st Contact Info) Description 08/25/2024 Lab Requisition [facility] - Main Lab 299 [facility] [place] [address] Stephanie Celis MD [address] [address] Encounter for therapeutic drug level monitoring Social [...] AM EDT Office Visit Orthopedic Surgery - [place] 250 175 [facility] 250 [place] [phone] Ulices Crowell, TRACY 175 [facility] 250 [place] [address] documented as of this encounter Procedures Procedure Name Priority Date/Time Associated Diagnosis Comments VALPROIC ACID LEVEL, TOTAL Routine 08/25/2024 7:32 AM EST Encounter for therapeutic drug level monitoring documented in this encounter Results * Valproic acid level, total (08/25/2024 7:32 AM EST) Valproic Acid, Total 99 50 - 100 mcg/mL LAB CHEMISTRY METHOD 08/25/2024 12:36 PM EST [facility] LAB Blood Venous blood specimen / Unknown Venipuncture / Unknown 08/25/2024 7:32 AM EST 08/25/2024 9:16 AM EST us Stephanie Celis MD LAB BLOOD ORDERABLES Fin al Result [facility] [address] [place] [address], documented in this encounter Visit Diagnoses Diagnosis Encounter for therapeutic drug level monitoring documented in this encounter Care Teams Dish Cloth Inspector Relationship Specialty Start Date End Date Nina Lindsay NP [address] [place] [phone] PCP - General 10/07/23 documented as of this encounter
--- OUTSIDE RECORDS SUMMARY | 2025-06-23 16:22 | XMS_ITS | Encounter Summary ---
Author Organization [facility] Address [address] [place] [address] Care Team Providers Care Sap Abap Developer Name Role Phone Neftali Nina Marsh NP Primary Care Provider [phone] Encounter Details Date Type Department Care Team (Late st Contact Info) Description 09/08/2024 Lab Requisition [facility] - Main Lab 299 [facility] [place] [address] Stephanie Celis MD [address] [address] Other terminal press operator (current) drug therapy Social History Tobacco Use [...] AM EDT Office Visit Orthopedic Surgery - [place] [address] [address] Ulices Crowell, DPSwati 175 [facility] 250 [place] [address] documented as of this encounter Procedures Procedure Name Priority Date/Time Associated Diagnosis Comments COMPLETE BLOOD COUNT Routine 09/08/2024 7:20 AM EST Other terminal press operator (current) drug therapy BASIC METABOLIC PANEL Routine 09/08/2024 7:20 AM EST Other terminal press operator (current) drug therapy documented in this encounter [...] al Result [facility] [address] [place] [address], * (ABNORMAL) Complete blood count (09/08/2024 7:20 [...] LAB HEMETOLOGY METHOD 09/08/2024 10:40 AM EST [facility] NRBC 0.0 <1.0 % LAB HEMETOLOGY METHOD 09/08/2024 10:40 AM EST [facility] NRBC Absolute 0.00 <0.10 K/mcL LAB HEMETOLOGY METHOD 09/08/2024 10:40 AM EST [facility] Blood Venous blood specimen / Unknown Venipuncture / Unknown 09/08/2024 7:20 AM EST 09/08/2024 9:03 AM EST us Stephanie Celis MD LAB BLOOD ORDERABLES Fin al Result [facility] 299 [place] [address], documented in this encounter Visit Diagnoses Diagnosis Other terminal press operator (current) drug therapy documented in this encounter Care Teams Sap Abap Developer Relationship Specialty Start Date End Date Nina Lindsay NP [address] [phone] PCP - General 10/07/23 documented as of this encounter
--- OUTSIDE RECORDS SUMMARY | 2025-06-23 16:22 | XMS_ITS | Encounter Summary ---
Author Organization [facility] Address [address] [place] [address] Care Team Providers Care Dural Mechanic Name Role Phone LindsayNina Salma NGUYEN Primary Care Provider [phone] Encounter Details Date Type Department Care Team (Late st Contact Info) Description 09/22/2024 Lab Requisition [facility] - Main Lab 299 [facility] [place] [address] Stephanie Celis MD [address] [address] Other drug-induced pancytopenia (CMS/HCC V24); Chronic kidney [...] AM EDT Office Visit Orthopedic Surgery - [place] 250 175 [facility] 250 [place] [phone] Ulices Crowell, DPSwati [address] [address] documented as of this encounter Procedures Procedure [...] LAB CHEMISTRY METHOD 09/22/2024 10:05 AM EDT [facility] Blood Venous blood specimen / Unknown Venipuncture / Unknown 09/22/2024 7:02 AM EDT 09/22/2024 8:33 AM EDT us Stephanie Celis MD LAB BLOOD ORDERABLES Fin al Result [facility] 299 [place] [address], * (ABNORMAL) Complete blood count (09/22/2024 7:02 AM EDT) WBC 2.2(L) 4.8 - 10.8 K/mcL LAB [facility] RBC 2.80(L) 3.80 - 4.80 M/mcL LAB HEMETOLOGY METHOD 09/22/2024 10:32 AM EDT [facility] Hemoglobin 10.5(L) 11.5 - 16.0 g/dL LAB HEMETOLOGY METHOD 09/22/2024 10:32 AM [facility] Hematocrit 30.9(L) 35.0 - 47.0 % LAB HEMETOLOGY METHOD 09/22/2024 10:32 AM [facility] MCV 110.4(H) 79.0 - 98.0 FL LAB HEMETOLOGY METHOD 09/22/2024 10:32 AM EDT [facility] MCH 37.5(H) 27.0 - 32.0 pcg LAB HEMETOLOGY METHOD 09/22/2024 10:32 AM EDT [facility] MCHC 34.0 32.0 - 37.0 g/dL LAB HEMETOLOGY METHOD 09/22/2024 10[facility] RDW 13.2 11.0 - 15.0 % LAB HEMETOLOGY METHOD 09/22/2024 10:32 AM EDT [facility] Platelets 66(L) 130 - 400 K/mcL LAB HEMETOLOGY METHOD 09/22/2024 10:32 AM EDT [facility] Comment:previously verified by slide MPV 9.2 7.0 - 11.0 FL LAB HEMETOLOGY METHOD 09/22/2024 10:32 AM EDT [facility] NRBC 0.0 <1.0 % [facility] 09/22/2024 10:32 AM EDT [facility] NRBC Absolute 0.00 <0.10 K/mcL [facility] 09/22/2024 10:32 AM EDT [facility] Blood Venous blood specimen / Unknown Venipuncture / Unknown 09/22/2024 7:02 AM EDT 09/22/2024 8:33 AM EDT us Stephanie Celis MD LAB BLOOD ORDERABLES Fin al Result [facility] 299 [place] [address], documented in this encounter Visit Diagnoses Diagnosis 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
--- OUTSIDE RECORDS SUMMARY | 2025-06-23 16:22 | XMS_ITS | Encounter Summary ---
Author Organization [facility] Address [address] [place] [address] Care Team Providers Care Bilingual Instructor Name Role Phone NeftaliNina Salma NGUYEN Primary Care Provider [phone] Encounter Details Date Type Department Care Team (Late st Contact Info) Description 08/26/2024 Lab Requisition [facility] - Main Lab 299 [place] [address] Stephanie Celis MD [address] [address] Anemia, unspecified Social History Tobacco Use Types [...] AM EDT Office Visit Orthopedic Surgery - [place] 250 175 [facility] 250 [place] [phone] Ulices Crowell, TRACY [address] [address] documented as of this encounter Procedures Procedure Name Priority Date/Time Associated Diagnosis Comments COMPLETE BLOOD COUNT Routine 08/27/2024 7:46 AM EST Anemia, unspecified documented in this encounter Results * (ABNORMAL) Complete blood count (08/27/2024 7:46 AM EST) WBC 1.9(LL) 4.8 - 10.8 K/[facility] LAB HEMETOLOGY METHOD 08/27/2024 12:41 PM [facility] RBC 2.60(L) 3.80 - 4.80 M/mcL LAB HEMETOLOGY METHOD 08/27/2024 12:41 PM [facility] Hemoglobin 9.8(L) 11.5 - 16.0 g/dL LAB HEMETOLOGY METHOD 08/27/2024 12:41 PM [facility] Hematocrit 30.2(L) 35.0 - 47.0 % LAB HEMETOLOGY METHOD 08/27/2024 12:41 PM [facility] MCV 115.7(H) 79.0 - 98.0 FL LAB HEMETOLOGY METHOD 08/27/2024 12:41 PM [facility] MCH 37.5(H) 27.0 - 32.0 pcg LAB HEMETOLOGY METHOD 08/27/2024 12:41 PM [facility] MCHC 32.5 32.0 - 37.0 g/dL LAB HEMETOLOGY METHOD 08/27/2024 12:41 PM [facility] RDW 13.2 11.0 - 15.0 % LAB HEMETOLOGY METHOD 08/27/2024 12:41 PM [facility] Platelets 30(L) 130 - 400 K/mcL LAB HEMETOLOGY METHOD 08/27/2024 12:41 PM [facility] Comment:previously verified by slide MPV 9.9 7.0 - 11.0 FL LAB HEMETOLOGY METHOD 08/27/2024 12:41 PM [facility] NRBC 0.0 <1.0 % LAB HEMETOLOGY METHOD 08/27/2024 12:41 PM [facility] NRBC Absolute 0.00 <0.10 K/mcL LAB HEMETOLOGY METHOD 08/27/2024 12:41 PM [facility] Blood Venous blood specimen / Unknown 08/27/2024 7:46 AM EST 08/27/2024 11:46 AM EST us Stephanie Celis MD LAB BLOOD ORDERABLES Fin al Result [facility] LAB 299 [place] [address], documented in this encounter Visit Diagnoses Diagnosis Anemia, unspecified documented in this encounter Care Teams Bilingual Instructor Relationship Specialty Start Date End Date Nina Lindsay NP [address] [place] [phone] PCP - General 10/07/23 documented as of this encounter
--- OUTSIDE RECORDS SUMMARY | 2025-06-23 16:23 | XMS_ITS | Encounter Summary ---
Author Organization [facility] Address [address] [place] [address] Care Team Providers Care Blending Supervisor Name Role Phone LindsayNina Salma NGUYEN Primary Care Provider [phone] Encounter Details Date Type Department Care Team (Late st Contact Info) Description 07/31/2024 Lab Requisition [facility] - Main Lab 299 [facility] [place] [address] Stephanie Celis MD [address] [address] Hyperlipidemia, unspecified; Hypothyroidism, unspecified Social History Tobacco [...] EDT Office Visit Orthopedic Surgery - [place] [address] [address] Ulices Crowell, DPSwati [address] [address] documented as of this encounter Procedures Procedure Name Priority Date/Time Associated Diagnosis Comments COMPLETE BLOOD COUNT Routine 08/03/2024 7:57 AM EST Hyperlipidemia, unspecified Hypothyroidism, unspecified BASIC METABOLIC PANEL Routine 08/03/2024 7:57 AM EST Hyperlipidemia, unspecified Hypothyroidism, unspecified documented in this encounter Results * (ABNORMAL) Basic metabolic panel (08/03/2024 7:57 AM EST) Sodium 138 133 - 145 mmol/L LAB CHEMISTRY METHOD 08/03/2024 12:20 PM [facility] Potassium 4.3 3.5 - 5.5 mmol/L LAB CHEMISTRY METHOD 08/03/2024 12:20 PM [facility] Chloride 104 96 - 110 mmol/L LAB CHEMISTRY METHOD 08/03/2024 12:20 PM [facility] CO2 28 21 - 32 mmol/L LAB CHEMISTRY METHOD 08/03/2024 12:20 PM [facility] Anion Gap 6 3 - 11 LAB CHEMISTRY METHOD 08/03/2024 12:20 PM [facility] Glucose 107(H) 70 - 100 mg/dL LAB CHEMISTRY METHOD 08/03/2024 12:20 PM [facility] BUN 14 5 - 25 mg/dL LAB CHEMISTRY METHOD 08/03/2024 12:20 PM [facility] Creatinine 1.23(H) 0.50 - 1.10 mg/dL LAB CHEMISTRY METHOD 08/03/2024 12:20 PM [facility] eGFR 50(L) >=60 mL/min/1. 73m2 LAB CHEMISTRY METHOD 08/03/2024 12:20 PM [facility] LAB Comment:Calculation based on the Chronic Kidney Disease Epidemiology Collaboration (CKD-EPI) equation refit without adjustment for race. BUN/Creatinine Ratio 11.4 LAB CHEMISTRY METHOD 08/03/2024 12:20 PM [facility] Calcium 8.9 8.5 - 10.5 mg/dL LAB CHEMISTRY METHOD 08/03/2024 12:20 PM [facility] Blood Venous blood specimen / Unknown Venipuncture / Unknown 08/03/2024 7:57 AM EST 08/03/2024 11:09 AM EST Stephanie Celis MD LAB BLOOD ORDERABLES Fin al Result [facility] [address] [place] [address], * (ABNORMAL) Complete blood count (08/03/2024 7:57 AM EST) WBC 2.5(L) 4.8 - 10.8 K/mcL LAB HEMETOLOGY METHOD 08/03/2024 1:03 PM [facility] RBC 2.60(L) 3.80 - 4.80 M/mcL LAB HEMETOLOGY METHOD 08/03/2024 1:03 PM [facility] Hemoglobin 10.0(L) 11.5 - 16.0 g/dL LAB HEMETOLOGY METHOD 08/03/2024 1:03 PM [facility] Hematocrit 30.5(L) 35.0 - 47.0 % LAB HEMETOLOGY METHOD 08/03/2024 1:03 PM [facility] MCV 117.8(H) 79.0 - 98.0 FL LAB HEMETOLOGY METHOD 08/03/2024 1:03 PM [facility] MCH 38.6(H) 27.0 - 32.0 pcg LAB HEMETOLOGY METHOD 08/03/2024 1:03 PM [facility] MCHC 32.8 32.0 - 37.0 g/dL LAB HEMETOLOGY METHOD 08/03/2024 1:03 PM [facility] RDW 12.2 11.0 - 15.0 % LAB HEMETOLOGY METHOD 08/03/2024 1:03 PM [facility] Platelets 78(L) 130 - 400 K/mcL LAB HEMETOLOGY METHOD 08/03/2024 1:03 PM [facility] LAB Comment:reviewed by slide MPV 9.6 7.0 - 11.0 FL LAB HEMETOLOGY METHOD 08/03/2024 1:03 PM EST [facility] NRBC 0.0 <1.0 % LAB HEMETOLOGY METHOD 08/03/2024 1:03 PM EST [facility] NRBC Absolute 0.00 <0.10 K/mcL LAB HEMETOLOGY METHOD 08/03/2024 1:03 PM EST [facility] Blood Venous blood specimen / Unknown Venipuncture / Unknown 08/03/2024 7:57 AM EST 08/03/2024 11:09 AM EST us Stephanie Celis MD LAB BLOOD ORDERABLES Fin al Result [facility] 299 [place] [address], documented in this encounter Visit Diagnoses Diagnosis Hyperlipidemia, unspecified Hypothyroidism, unspecified documented in this encounter Care Teams Blending Supervisor Relationship Specialty Start Date End Date Nina Lindsay NP [address] [phone] PCP - General 10/07/23 documented as of this encounter
--- OUTSIDE RECORDS SUMMARY | 2025-06-23 16:23 | XMS_ITS | Encounter Summary ---
Author Organization [facility] Address [address] [place] [address] Care Team Providers Care Manager Field Services Name Role Phone LindsayNina Salma NGUYEN Primary Care Provider [phone] Encounter Details Date Type Department Care Team (Late st Contact Info) Description 08/11/2024 Lab Requisition [facility] - Main Lab 299 [facility] [place] [address] Stephanie Celis MD [address] [address] Altered mental status, unspecified Social History Tobacco [...] AM EDT Office Visit Orthopedic Surgery - [place] 250 175 [facility] 250 [place] [address] Ulices Crowell DPM 175 [facility] 250 [place] [address] documented as of this encounter Procedures Procedure [...] reflex microscopic (08/10/2024 2:00 PM EST) Specific [place] Urine 1.019 1.003 - 1.030 LAB URINALYSIS - AUTOMATED METHOD 08/11/2024 11:48 AM [facility] pH, Urine 6.0 5.0 - 8.0 pH LAB URINALYSIS - AUTOMATED METHOD 08/11/2024 11:48 AM [facility] Leukocytes, Urine Large(A) Negative LAB URINALYSIS - AUTOMATED METHOD 08/11/2024 11:48 AM [facility] Nitrite, Urine Negative Negative LAB URINALYSIS - AUTOMATED METHOD 08/11/2024 11:48 AM [facility] Protein, Urine 100(A) <=Trace mg/dL LAB URINALYSIS - AUTOMATED METHOD 08/11/2024 11:48 AM [facility] Glucose, Urine Negative Negative mg/dL LAB URINALYSIS - AUTOMATED METHOD 08/11/2024 11:48 AM [facility] Ketones, Urine Trace(A) Negative mg/dL LAB URINALYSIS - AUTOMATED METHOD 08/11/2024 11:48 AM [facility] Urobilinogen , Urine 1.0 0.2 - 1.0 mg/dL LAB URINALYSIS - AUTOMATED METHOD 08/11/2024 11:48 AM [facility] Bilirubin, Urine Small(A) Negative LAB URINALYSIS - AUTOMATED METHOD 08/11/2024 11:48 AM [facility] Blood, Urine Moderate(A) Negative LAB URINALYSIS - AUTOMATED METHOD 08/11/2024 11:48 AM [facility] RBC, Urine 16.3(H) 0 - 4 /HPF LAB URINALYSIS - AUTOMATED METHOD 08/11/2024 11:48 AM [facility] WBC, Urine 1,391.8(H) 0 - 4 /HPF LAB URINALYSIS - AUTOMATED METHOD 08/11/2024 11:48 AM EST [facility] Squamous Epithelial, Urine 12 0 - 60 /LPF LAB URINALYSIS - AUTOMATED METHOD 08/11/2024 11:48 AM [facility] Bacteria, Urine Many(A) Negative /HPF LAB URINALYSIS - AUTOMATED METHOD 08/11/2024 11:48 AM [facility] Hyaline Casts, Urine 0.0 0 - 3 /LPF LAB URINALYSIS - AUTOMATED METHOD 08/11/2024 11:48 AM [facility] Urine Urine specimen obtained by clean catch procedure / Unknown Non-blood Collection / Unknown 08/10/2024 2:00 PM EST 08/11/2024 10:50 AM EST Stephanie Celis MD LAB URINE ORDERABLES Fin al Result [facility] 299 [place] [address], * (ABNORMAL) Culture urine (08/10/2024 2:00 PM [...] us Stephanie Celis MD LAB MICROBIOLOGY - [facility] AL ORDERABLES Final Result [facility] [address] [place] [address], documented in this encounter Visit Diagnoses Diagnosis Altered mental status, unspecified documented in this encounter Care Teams Manager Field Services Relationship Specialty Start Date End Date Nina Lindsay NP [address] [place] [phone] PCP - General 10/07/23 documented as of this encounter
--- OUTSIDE RECORDS SUMMARY | 2025-06-23 16:23 | XMS_ITS | Encounter Summary ---
Author Organization [facility] Address [address] [place] [address] Care Team Providers Care Director Of Guidance Name Role Phone Neftali Nina Marsh NP Primary Care Provider [phone] Encounter Details Date Type Department Care Team (Late st Contact Info) Description 08/20/2024 Lab Requisition [facility] Lab 299 [facility] [place] [address] Stephanie Celis MD [address] [address] Acute kidney failure, unspecified (CMS/HCC V24); Chronic [...] AM EDT Office Visit Orthopedic Surgery - [place] [address] [address] Ulices Crowell DPM [address] [address] documented as of this encounter Procedures Procedure [...] Fin al Result [facility] 299 [place] [address], * (ABNORMAL) Comprehensive metabolic panel (08/20/2024 7:52 [...] Fin al Result [facility] [address] [place] [address], * (ABNORMAL) Complete blood count (08/20/2024 7:52 [...] MD LAB BLOOD ORDERABLES Fin al Result [facility]) [facility] [address] [place] [address], documented in this encounter Visit Diagnoses Diagnosis Acute kidney failure, unspecified (CMS/HCC V24) Acute kidney failure, unspecified Chronic kidney disease, stage 3 unspecified (CMS/HCC V24, CMS/HCC V28) Human immunodeficiency virus (HIV) disease (CMS/HCC V24, CMS/HCC V28) Human immunodeficiency virus [HIV] disease documented in this encounter Care Teams Director Of Guidance Relationship Specialty Start Date End Date Nina Lindsay NP [address] [place] [phone] PCP - General 10/07/23 documented as of this encounter
--- OUTSIDE RECORDS SUMMARY | 2025-06-23 16:23 | XMS_ITS | Encounter Summary ---
Author Organization [facility] Address [address] [place] [address] Care Team Providers Care Regulation Supervisor Name Role Phone Neftali Nina Marsh NP Primary Care Provider [phone] Encounter Details Date Type Department Care Team (Late Contact Info) Description 08/13/2024 Lab Requisition [facility] Lab 299 [facility] [address] Stephanie Celis MD [address] [address] Human immunodeficiency virus (HIV) disease (CMS/HCC V24, [...] AM EDT Office Visit Orthopedic Surgery - [place] [address] [address] Ulices Crowell, TRACY [address] [address] documented as of this encounter Procedures Procedure Name Priority Date/Time Associated Diagnosis Comments COMPLETE BLOOD COUNT Routine 08/13/2024 7:22 AM EST Human immunodeficiency virus (HIV) disease (CMS/[facility]) Noninfective gastroenteritis and colitis, unspecified Altered mental status, unspecified Vitamin D deficiency, unspecified documented in this encounter Results * (ABNORMAL) Complete blood count (08/13/2024 7:22 AM EST) WBC 2.6(L) 4.8 - 10.8 K/mcL LAB HEMETOLOGY METHOD 08/13/2024 10:51 AM [facility] LAB RBC 2.50(L) 3.80 - 4.80 M/mcL LAB HEMETOLOGY METHOD 08/13/2024 10:51 AM [facility] LAB Hemoglobin 9.6(L) 11.5 - 16.0 g/dL LAB HEMETOLOGY METHOD 08/13/2024 10:51 AM [facility] LAB Hematocrit 29.0(L) 35.0 - 47.0 % LAB HEMETOLOGY METHOD 08/13/2024 10:51 AM [facility] LAB MCV 115.5(H) 79.0 - 98.0 FL LAB HEMETOLOGY METHOD 08/13/2024 10:51 AM [facility] LAB MCH 38.2(H) 27.0 - 32.0 pcg LAB HEMETOLOGY METHOD 08/13/2024 10:51 AM [facility] LAB MCHC 33.1 32.0 - 37.0 g/dL LAB HEMETOLOGY METHOD 08/13/2024 10:51 AM [facility] LAB RDW 12.2 11.0 - 15.0 % LAB HEMETOLOGY METHOD 08/13/2024 10:51 AM [facility] LAB Platelets 38(L) 130 - 400 K/mcL LAB HEMETOLOGY METHOD 08/13/2024 10:51 AM [facility] LAB Comment:previously verified by slide MPV 9.4 7.0 - 11.0 FL LAB HEMETOLOGY METHOD 08/13/2024 10:51 AM [facility] LAB NRBC 0.0 <1.0 % LAB HEMETOLOGY METHOD 08/13/2024 10:51 AM EST [facility] LAB NRBC Absolute 0.00 <0.10 K/mcL LAB HEMETOLOGY METHOD 08/13/2024 10:51 AM EST [facility] LAB Blood Venous blood specimen / Unknown Venipuncture / Unknown 08/13/2024 7:22 AM EST 08/13/2024 9:57 AM EST us Stephanie Celis MD LAB BLOOD ORDERABLES Fin al Result [facility] LAB [address] [place] [address], documented in this encounter Visit Diagnoses Diagnosis Human immunodeficiency virus (HIV) disease (CMS/HCC V24, CMS/[facility] V28) Human immunodeficiency virus [HIV] disease Noninfective gastroenteritis and colitis, unspecified Altered mental status, unspecified Vitamin D deficiency, unspecified documented in this encounter Care Teams Regulation Supervisor Relationship Specialty Start Date End Date Nina Lindsay NP [address] [place] [phone] PCP - General 10/07/23 documented as of this encounter
--- OUTSIDE RECORDS SUMMARY | 2025-06-23 16:23 | XMS_ITS | Encounter Summary ---
Author Organization [facility] Address [address] [place] [address] Care Team Providers Care Premix Concrete Batcher Name Role Phone LindsayNina Salma NGUYEN Primary Care Provider [phone] Encounter Details Date Type Department Care Team (Late st Contact Info) Description 08/07/2024 Lab Requisition [facility] - Main Lab 299 [facility] [place] [address] Stephanie Celis MD [address] [address] Hyperlipidemia, unspecified; Hypothyroidism, unspecified Social History Tobacco [...] AM EDT Office Visit Orthopedic Surgery - [place] [address] [address] Ulices Crowell, DPSwati [address] [address] documented as of this encounter Procedures Procedure Name Priority Date/Time Associated Diagnosis Comments COMPLETE BLOOD COUNT Routine 08/10/2024 8:44 AM EST Hyperlipidemia, unspecified Hypothyroidism, unspecified BASIC METABOLIC PANEL Routine 08/10/2024 8:44 AM EST Hyperlipidemia, unspecified Hypothyroidism, unspecified documented in this encounter Results * (ABNORMAL) Basic metabolic panel (08/10/2024 8:44 AM EST) Sodium 139 133 - 145 mmol/L LAB CHEMISTRY METHOD 08/10/2024 1:16 PM [facility] Potassium 3.6 3.5 - 5.5 mmol/L LAB CHEMISTRY METHOD 08/10/2024 1:16 PM [facility] Chloride 103 96 - 110 mmol/L LAB CHEMISTRY METHOD 08/10/2024 1:16 PM [facility] CO2 29 21 - 32 mmol/L LAB CHEMISTRY METHOD 08/10/2024 1:16 PM [facility] Anion Gap 7 3 - 11 LAB CHEMISTRY METHOD 08/10/2024 1:16 PM [facility] Glucose 128(H) 70 - 100 mg/dL LAB CHEMISTRY METHOD 08/10/2024 1:16 PM [facility] BUN 22 5 - 25 mg/dL LAB CHEMISTRY METHOD 08/10/2024 1:16 PM [facility] Creatinine 1.37(H) 0.50 - 1.10 mg/dL LAB CHEMISTRY METHOD 08/10/2024 1:16 PM [facility] eGFR 44(L) >=60 mL/min/1. 73m2 LAB CHEMISTRY METHOD 08/10/2024 1:16 PM [facility] Comment:Calculation based on the Chronic Kidney Disease Epidemiology Collaboration (CKD-EPI) equation refit without adjustment for race. BUN/Creatinine Ratio 16.1 LAB CHEMISTRY METHOD 08/10/2024 1:16 PM [facility] Calcium 8.5 8.5 - 10.5 mg/dL LAB CHEMISTRY METHOD 08/10/2024 1:16 PM [facility] Blood Venous blood specimen / Unknown Venipuncture / Unknown 08/10/2024 8:44 AM EST 08/10/2024 11:11 AM EST Stephanie Celis MD LAB BLOOD ORDERABLES Fin al Result [facility] [address] [place] [address], * (ABNORMAL) Complete blood count (08/10/2024 8:44 AM EST) WBC 3.9(L) 4.8 - 10.8 K/mcL LAB HEMETOLOGY METHOD 08/10/2024 12:39 PM [facility] RBC 2.60(L) 3.80 - 4.80 M/mcL LAB HEMETOLOGY METHOD 08/10/2024 12:39 PM [facility] Hemoglobin 9.9(L) 11.5 - 16.0 g/dL LAB HEMETOLOGY METHOD 08/10/2024 12:39 PM [facility] Hematocrit 30.5(L) 35.0 - 47.0 % LAB HEMETOLOGY METHOD 08/10/2024 12:39 PM [facility] MCV 116.4(H) 79.0 - 98.0 FL LAB HEMETOLOGY METHOD 08/10/2024 12:39 PM [facility] MCH 37.8(H) 27.0 - 32.0 pcg LAB HEMETOLOGY METHOD 08/10/2024 12:39 PM [facility] MCHC 32.5 32.0 - 37.0 g/dL LAB HEMETOLOGY METHOD 08/10/2024 12:39 PM [facility] RDW 12.3 11.0 - 15.0 % LAB HEMETOLOGY METHOD 08/10/2024 12:39 PM [facility] Platelets 43(L) 130 - 400 K/mcL LAB HEMETOLOGY METHOD 08/10/2024 12:39 PM [facility] Comment:previously verified by slide MPV 9.8 7.0 - 11.0 FL LAB HEMETOLOGY METHOD 08/10/2024 12:39 PM EST [facility] NRBC 0.5 <1.0 % LAB HEMETOLOGY METHOD 08/10/2024 12:39 PM EST [facility] NRBC Absolute 0.02 <0.10 K/mcL LAB HEMETOLOGY METHOD 08/10/2024 12:39 PM EST [facility] Blood Venous blood specimen / Unknown Venipuncture / Unknown 08/10/2024 8:44 AM EST 08/10/2024 11:11 AM EST us Stephanie Celis MD LAB BLOOD ORDERABLES Fin al Result [facility] [address] [place] [address], documented in this encounter Visit Diagnoses Diagnosis Hyperlipidemia, unspecified Hypothyroidism, unspecified documented in this encounter Care Teams Premix Concrete Batcher Relationship Specialty Start Date End Date Nina Lindsay NP [address] [place] [phone] PCP - General 10/07/23 documented as of this encounter
--- OUTSIDE RECORDS SUMMARY | 2025-06-23 16:23 | XMS_ITS | Encounter Summary ---
Author Organization [facility] Address [address] [place] [address] Care Team Providers Care Senior Compliance Officer Name Role Phone Neftali Nina Marsh NP Primary Care Provider [phone] Encounter Details Date Type Department Care Team (Late st Contact Info) Description 07/27/2024 Lab Requisition [facility] Lab 299 [facility] [place] [address] Stephanie Celis MD [address] [phone] Vitamin D deficiency, unspecified; Chronic kidney disease, [...] AM EDT Office Visit Orthopedic Surgery - [place] [address] [facility] 250 [place] [phone] Ulices Crowell, DPSwati [address] [address] documented as of this encounter Procedures Procedure [...] LAB CHEMISTRY METHOD 07/27/2024 2:34 PM EST [facility] Blood Venous blood specimen / Unknown Venipuncture / Unknown 07/27/2024 5:39 AM EST 07/27/2024 12:17 PM EST Stephanie Celis MD LAB BLOOD ORDERABLES Fin al Result [facility] [address] [place] [address], [place] [phone] * Vitamin D 25 hydroxy (07/27/2024 5:39 AM EST) Pathologist [facility] Vit D, 25-Hydroxy 55.9 30.0 - 80.0 ng/mL LAB CHEMISTRY METHOD 07/27/2024 2:19 PM EST [facility] Blood Venous blood specimen / Unknown Venipuncture / Unknown 07/27/2024 5:39 AM EST 07/27/2024 12:17 PM EST Stephanie Celis MD LAB BLOOD ORDERABLES Fin al Result [facility] [address] [place] [address], [place] [phone] * Magnesium (07/27/2024 5:39 AM EST) Pathologist [facility] Magnesium 2.5 1.9 - 2.6 mg/dL LAB CHEMISTRY METHOD 07/27/2024 2:12 PM EST [facility] Blood Venous blood specimen / Unknown Venipuncture / Unknown 07/27/2024 5:39 AM EST 07/27/2024 12:17 PM EST Stephanie Celis MD LAB BLOOD ORDERABLES Fin al Result Performing Organization Address City/[facility]/ZIP Co de Phone Number [facility] [address] [place] [address], [place] [phone] * (ABNORMAL) Folate (07/27/2024 5:39 AM EST) Folate >20.0(H) 2.8 - 17.0 ng/ml LAB CHEMISTRY METHOD 07/27/2024 2:34 PM EST [facility] Blood Venous blood specimen / Unknown Venipuncture / Unknown 07/27/2024 5:39 AM EST 07/27/2024 12:17 PM EST Stephanie Celis MD LAB BLOOD ORDERABLES Fin al Result Performing Organization Address [facility]/ZIP Co de Phone Number [facility] [address] [place] [address], [place] [phone] * (ABNORMAL) Thyroid stimulating hormone (07/27/2024 5:39 AM EST) TSH 5.52(H) 0.40 - 4.00 mcIU/mL LAB CHEMISTRY METHOD 07/27/2024 2:19 PM EST [facility] Blood Venous blood specimen / Unknown Venipuncture / Unknown 07/27/2024 5:39 AM EST 07/27/2024 12:17 PM EST Stephanie Celis MD LAB BLOOD ORDERABLES Fin al Result Performing Organization Address City/[facility]/ZIP Co de Phone Number [facility] [address] [place] [address], [place] [phone] * (ABNORMAL) Comprehensive metabolic panel (07/27/2024 5:39 AM EST) Sodium 138 133 - 145 mmol/L LAB CHEMISTRY METHOD 07/27/2024 2:12 PM EST [facility] Potassium 4.3 3.5 - 5.5 mmol/L LAB CHEMISTRY METHOD 07/27/2024 2:12 PM [facility] Chloride 102 96 - 110 mmol/L LAB CHEMISTRY METHOD 07/27/2024 2:12 PM [facility] CO2 30 21 - 32 mmol/L LAB CHEMISTRY METHOD 07/27/2024 2:12 PM [facility] Anion Gap 6 3 - 11 LAB CHEMISTRY METHOD 07/27/2024 2:12 PM [facility] Glucose 115(H) 70 - 100 mg/dL LAB CHEMISTRY METHOD 07/27/2024 2:12 PM [facility] BUN 14 5 - 25 mg/dL LAB CHEMISTRY METHOD 07/27/2024 2:12 PM [facility] Creatinine 1.09 0.50 - 1.10 mg/dL LAB CHEMISTRY METHOD 07/27/2024 2:12 PM [facility] eGFR 58(L) >=60 mL/min/1. 73m2 LAB CHEMISTRY METHOD 07/27/2024 2:12 PM [facility] LAB Comment:Calculation based on the Chronic Kidney Disease Epidemiology Collaboration (CKD-EPI) equation refit without adjustment for race. BUN/Creatinine Ratio 12.8 LAB CHEMISTRY METHOD 07/27/2024 2:12 PM [facility] Calcium 8.3(L) 8.5 - 10.5 mg/dL LAB CHEMISTRY METHOD 07/27/2024 2:12 PM [facility] AST (SGOT) 28 10 - 42 unit/L LAB CHEMISTRY METHOD 07/27/2024 2:12 PM [facility] ALT (SGPT) 14 10 - 60 unit/L LAB CHEMISTRY METHOD 07/27/2024 2:12 PM [facility] Alkaline Phosphatase 49 42 - 121 unit/L LAB CHEMISTRY METHOD 07/27/2024 2:12 PM [facility] Total Protein 6.4 6.0 - 8.0 g/dL LAB CHEMISTRY METHOD 07/27/2024 2:12 PM EST [facility] Albumin 2.7(L) 3.2 - 5.0 g/dL LAB CHEMISTRY METHOD 07/27/2024 2:12 PM [facility] Total Bilirubin 0.6 0.0 - 1.4 mg/dL LAB CHEMISTRY METHOD 07/27/2024 2:12 PM [facility] Blood Venous blood specimen / Unknown Venipuncture / Unknown 07/27/2024 5:39 AM EST 07/27/2024 12:17 PM EST us Stephanie Celis MD LAB BLOOD ORDERABLES Fin al Result [facility] [address] [place] [address], * (ABNORMAL) Complete blood count (07/27/2024 5:39 AM EST) WBC 3.4(L) 4.8 - 10.8 K/mcL LAB HEMETOLOGY METHOD 07/27/2024 1:38 PM [facility] RBC 2.50(L) 3.80 - 4.80 M/mcL LAB HEMETOLOGY METHOD 07/27/2024 1:38 PM [facility] Hemoglobin 10.0(L) 11.5 - 16.0 g/dL LAB HEMETOLOGY METHOD 07/27/2024 1:38 PM [facility] Hematocrit 31.1(L) 35.0 - 47.0 % LAB HEMETOLOGY METHOD 07/27/2024 1:38 PM [facility] MCV 122.4(H) 79.0 - 98.0 FL LAB HEMETOLOGY METHOD 07/27/2024 1:38 PM [facility] MCH 39.4(H) 27.0 - 32.0 pcg LAB HEMETOLOGY METHOD 07/27/2024 1:38 PM EST [facility] MCHC 32.2 32.0 - 37.0 g/dL LAB HEMETOLOGY METHOD 07/27/2024 1:38 PM [facility] RDW 12.6 11.0 - 15.0 % LAB HEMETOLOGY METHOD 07/27/2024 1:38 PM [facility] Platelets 150 130 - 400 K/mcL LAB HEMETOLOGY METHOD 07/27/2024 1:38 PM [facility] MPV 9.4 7.0 - 11.0 FL LAB HEMETOLOGY METHOD 07/27/2024 1:38 PM [facility] NRBC 0.0 <1.0 % LAB HEMETOLOGY METHOD 07/27/2024 1:38 PM [facility] NRBC Absolute 0.00 <0.10 K/mcL LAB HEMETOLOGY METHOD 07/27/2024 1:38 PM [facility] Blood Venous blood specimen / Unknown Venipuncture / Unknown 07/27/2024 5:39 AM EST 07/27/2024 12:17 PM EST us Stephanie Celis MD LAB BLOOD ORDERABLES Fin al Result [facility] [address] [place] [address], documented in this encounter Visit Diagnoses Diagnosis [...] to a substance or known physiological condition (CMS/[facility] V24, [facility] V28) Human immunodeficiency virus (HIV) disease ([facility] V24, [facility] V28) Human immunodeficiency virus [HIV] disease Hypothyroidism, unspecified COVID-19 documented in this encounter Care Teams Senior Compliance Officer Relationship Specialty Start Date End Date Nina Lindsay NP [address] [place] [phone] PCP - General 10/07/23 documented as of this encounter
--- OUTSIDE RECORDS SUMMARY | 2025-06-23 16:23 | XMS_ITS | Clinical Summary ---
Author Organization [facility] Address [address] [place] [address] Phone Care Team Providers Care Sap Integration Architect Name Role Phone Nina Lindsay NP Primary Care Provider Allergies Active Allergy Reactions Criticality Noted Date [...] AM EDT Office Visit Orthopedic Surgery - [address] [address] Ulices Crowell DPM Pain in [...] AM EDT Office Visit Orthopedic Surgery - [place] 250 175 [facility] [address] [place] [phone] Ulices Crowell DPM 175 [facility] [place] [address] [place] [address] Health Maintenance Due Date Last Done Comments [...] Insurance MEDICARE MEDICAID - [place] Care Teams Sap Integration Architect Relationship Specialty Start Date End Date Nina Lindsay NP [address] [place] [phone] PCP - General 10/07/23
--- OUTSIDE RECORDS SUMMARY | 2025-06-23 16:23 | XMS_ITS | Encounter Summary ---
Author Organization [facility] Address [address] [place] [address] Care Team Providers Care Director Of Event Marketing Name Role Phone LindsayNina Salma NGUYEN Primary Care Provider [phone] Encounter Details Date Type Department Care Team (Late st Contact Info) Description 08/15/2024 Lab Requisition [facility] - Main Lab 299 [facility] [place] [address] Stephanie Celis MD [address] [address] Hyperlipidemia, unspecified; Hypothyroidism, unspecified Social History Tobacco [...] AM EDT Office Visit Orthopedic Surgery - [place] [address] [address] Ulices Crowell, DPSwati [address] [address] documented as of this encounter Procedures Procedure Name Priority Date/Time Associated Diagnosis Comments COMPLETE BLOOD COUNT Routine 08/17/2024 5:27 AM EST Hyperlipidemia, unspecified Hypothyroidism, unspecified BASIC METABOLIC PANEL Routine 08/17/2024 5:27 AM EST Hyperlipidemia, unspecified Hypothyroidism, unspecified documented in this encounter Results * (ABNORMAL) Basic metabolic panel (08/17/2024 5:27 AM EST) Sodium 139 133 - 145 mmol/L LAB CHEMISTRY METHOD 08/17/2024 11:29 AM [facility] Potassium 3.8 3.5 - 5.5 mmol/L LAB CHEMISTRY METHOD 08/17/2024 11:29 AM [facility] Chloride 103 96 - 110 mmol/L LAB CHEMISTRY METHOD 08/17/2024 11:29 AM [facility] CO2 30 21 - 32 mmol/L LAB CHEMISTRY METHOD 08/17/2024 11:29 AM [facility] Anion Gap 6 3 - 11 LAB CHEMISTRY METHOD 08/17/2024 11:29 AM [facility] Glucose 98 70 - 100 mg/dL LAB CHEMISTRY METHOD 08/17/2024 11:29 AM [facility] BUN 18 5 - 25 mg/dL LAB CHEMISTRY METHOD 08/17/2024 11:29 AM [facility] Creatinine 1.57(H) 0.50 - 1.10 mg/dL LAB CHEMISTRY METHOD 08/17/2024 11:29 AM [facility] eGFR 37(L) >=60 mL/min/1. 73m2 LAB CHEMISTRY METHOD 08/17/2024 11:29 AM [facility] Comment:Calculation based on the Chronic Kidney Disease Epidemiology Collaboration (CKD-EPI) equation refit without adjustment for race. BUN/Creatinine Ratio 11.5 LAB CHEMISTRY METHOD 08/17/2024 11:29 AM [facility] Calcium 8.6 8.5 - 10.5 mg/dL LAB CHEMISTRY METHOD 08/17/2024 11:29 AM [facility] Blood Venous blood specimen / Unknown Venipuncture / Unknown 08/17/2024 5:27 AM EST 08/17/2024 10:16 AM EST Stephanie Celis MD LAB BLOOD ORDERABLES Fin al Result [facility] [address] [place] [address], * (ABNORMAL) Complete blood count (08/17/2024 5:27 AM EST) WBC 2.6(L) 4.8 - 10.8 K/mcL LAB HEMETOLOGY METHOD 08/17/2024 10:38 AM [facility] RBC 2.70(L) 3.80 - 4.80 M/mcL LAB HEMETOLOGY METHOD 08/17/2024 10:38 AM [facility] Hemoglobin 10.1(L) 11.5 - 16.0 g/dL LAB HEMETOLOGY METHOD 08/17/2024 10:38 AM [facility] Hematocrit 31.7(L) 35.0 - 47.0 % LAB HEMETOLOGY METHOD 08/17/2024 10:38 AM [facility] MCV 118.7(H) 79.0 - 98.0 FL LAB HEMETOLOGY METHOD 08/17/2024 10:38 AM [facility] MCH 37.8(H) 27.0 - 32.0 pcg LAB HEMETOLOGY METHOD 08/17/2024 10:38 AM [facility] MCHC 31.9(L) 32.0 - 37.0 g/dL LAB HEMETOLOGY METHOD 08/17/2024 10:38 AM [facility] RDW 13.2 11.0 - 15.0 % LAB HEMETOLOGY METHOD 08/17/2024 10:38 AM [facility] Platelets 50(L) 130 - 400 K/mcL LAB HEMETOLOGY METHOD 08/17/2024 10:38 AM [facility] Comment:previously [...] al Result [facility] [address] [place] [address], documented in this encounter Visit Diagnoses Diagnosis Hyperlipidemia, unspecified Hypothyroidism, unspecified documented in this encounter Care Teams Director Of Event Marketing Relationship Specialty Start Date End Date Nina Lindsay NP [address] [place] [phone] PCP - General 10/07/23 documented as of this encounter
== END 2025-06-23 12:29 | disposition home or self-care (01) ==
LOC: HO.MAMMO 12:28
PROVIDERS: Referring Provider Obstetrics & Gynecology; Visit Provider Nurse Practitioner Primary Care
DX: Z12.31 Encounter for screening mammogram for malignant neoplasm of breast (principal)
CPT/HCPCS: 77063; 77067

== ENCOUNTER → 2025-06-23 12:45 | Outpatient (BNV) | payer MEDICARE, MEDICAID, SELFPAY | PROVIDERS: Referring Provider Obstetrics & Gynecology; Visit Provider Internal Medicine | DX: Z12.31 Encounter for screening mammogram for malignant neoplasm of breast (principal) | CPT/HCPCS: 77063; 77067 ==